=== PATIENT | male | born 1980 | race Caucasian/White ===

== ENCOUNTER → 2017-10-29 09:55 | Outpatient (CLI) | payer MEDICAID, SELFPAY ==
--- NOTE | 2017-10-29 09:58 | STEWCON_ITS ---
Reason For Study: Chest Pain Stress Results Protocol: Dobutamine Stress Echo Maximum Predicted HR: 184 bpm Target HR: 156 bpm% Maximum Pre dicted HR: 83 % DurationHeart Rate Stage (mm:ss) (bpm) BPCom ment Baseline 70 133/70 Definity 8 ML Diluted With NS Used DSE 10 MCG 3:20 79 122/67 DSE 20 MCG 3:00 99 114/64 DSE 30 MCG 3:15 11 4 104/77Atropine 0.5 MG IVP DSE 40 MCG 2:55 15 3 112/62Atropine 0.5 MG IVP Recovery 85 131/74 Stress Duration: 12:30 mm:ss Maximum Stress HR: 153 bpmME TS: 1 Baseline Echocardiogram Findings The estimated ejection fraction is 65 %. Stress Echo Wall motion Data Resting WMIntermediate WMStress WM Resting Wall Motion Wall Motion Stress No regional wall motion No regional wall motion abnormalities noted. abnormalities noted. EKG Data Normal intervals are noted. The patient was titrated from 10 mcg to a maximum of 40 mcg of dobutamine during the stress. The maximum heart rate attained was 162 beats per minute. This was 88% of maximum predicted heart rate. During dobutamine infusion, there were no ST or T wave changes noted to suggest ischemia. No clinical angina was noted. Interpretation Summary The estimated ejection fraction is 65 %. Normal adequate dobutamine echocardiogram. Negative for ischemia by EKG and echocardiographic criteria. No anginal symptoms noted. Rare PVC noted. Appropriate blood pressure response to dobutamine. Final LVEF is 75%. Test terminated due to the attainment of target heart rate. Decreased sensitivity due to poor echo windows requiring Definity agent. Ordering Physician: Luci Licnoa Referring Physician: Lit Ventura MD Performed By: Ayden Nunez RCS
== END ==
PROVIDERS: Family Provider Family Medicine; PCP Family Medicine; Visit Provider Family Medicine
DX: E78.5 Hyperlipidemia, unspecified (principal); R07.9 Chest pain, unspecified; Z82.49 Family history of ischemic heart disease and other diseases of the circulatory system
CPT/HCPCS: 93017; 93350; J7030; Q9957; A4216; C8928

== ENCOUNTER 2018-01-03 09:22 | Day surgery (SDC) | payer MEDICAID, SELFPAY ==
[2018-01-03 09:38] VITALS: BP 143/84; PULSE 85; TEMP 35.8; O2SAT 95; BMI 61.3
--- NOTE | 2018-01-03 11:15 | SUR.OPER ---
ISOVUE 200 -3ML USED -TB
--- NOTE | 2018-01-03 11:20 | RAD_ITS ---
CLINICAL HISTORY: Male, 38 years old. Lower back pain PROCEDURE: EPIDUROGRAM - Caudal block FLUOROSCOPY TIME (if supplied): (0:08) minutes. 2 Images. RADIATION DOSAGE (If Supplied By Facility): CTDIvol = ( ) mGy, DLP = ( ) mGycm TECHNIQUE: Successful lumbar epidural steroid injection under fluoroscopic guidance. RAD/Fluor Guidance for Spine Inj IMPRESSION: Successful lumbar epidural steroid injection under fluoroscopic guidance. Electronically Signed: Matt Townsend MD at 7:20 EDT Tel , Service support ,
[2018-01-03] MEDS: Bupivacaine 0.25% 30 ML Vial (11:30)
[2018-01-03] MEDS: MethylPREDNISolone Acetate 80 MG/ML Vial (11:31)
[2018-01-03 11:36] VITALS: BP 131/70; BP 143/84; PULSE 75; RESP 16; O2SAT 94
--- NOTE | 2018-01-03 11:39 | OP.PCM_ITS ---
Problem List (1) Degeneration of intervertebral disc of lumbosacral region Status: Chronic (2) Radiculopathy of lumbosacral region Status: Chronic Report of Operation Date of Procedure: 01/03/18 Pre-Operative Diagnosis: Lumbosacral radiculopathy, lumbosacral degenerative disc disease Post-Operative Diagnosis: Lumbosacral radiculopathy, lumbosacral degenerative disc disease Surgery/Procedure Performed:: Diagnostic/therapeutic caudal epidural steroid injection Description of Surgical Findings:: PROCEDURE: Diagnostic/therapeutic caudal epidural steroid injection PREOPERATIVE DIAGNOSIS: Lumbosacral radiculopathy, lumbosacral degenerative disc disease, lumbosacral spinal stenosis. POSTOPERATIVE DIAGNOSIS: Lumbosacral radiculopathy, lumbosacral degenerative disc disease, lumbosacral spinal stenosis. ANESTHESIA: MAC COMPLICATIONS: None BLOOD LOSS: Minimal PROCEDURE IN DETAIL: History and physical today was reviewed. Risks and benefits of the procedure were explained. The patient understood, agreed to our procedure, and informed consent was obtained. IV inserted per routine protocol. The patient was taken to the operating room, placed in a prone position with a pillow positioned underneath the abdomen. Under direct physician fluoroscopy on the lateral view the caudal space was identified the skin and subcutaneous tissue were anesthetized approximately 3 cc of 1% lidocaine using a 25-gauge regular needle under direct visualization with fluoroscopy on the lateral view using a 22- gauge 3-1/2 inch spinal needle the needle was advanced via the skin through the sacral hiatus tip of the needle passed through the sacrococcygeal ligament advanced approximately S4 area after negative aspiration for blood or CSF a total of 3 cc of contrast were injected to confirm correct placement of the needle as well as cephalad spread the spread was followed to approximately L5 area after confirmation AP as well as lateral view and repeated negative aspiration a total of 15 cc of preservative-free 0.125% Marcaine with 80 mg of Depo-Medrol were injected easily. The needles were then removed intact.The patient experienced no signs or symptoms intrathecal, intravascular injection. The patient experienced no paraesthesia. The procedure was completed without any apparent difficult, any complication. The patient appeared to tolerate well. ASSESSMENT AND PLAN: This is a 38-year-old male with lumbosacral radiculopathy, lumbosacral degenerative disc disease, lumbosacral spinal stenosis status post diagnostic/ therapeutic caudal epidural steroid injection. The patient will continue his current medications. The patient will follow in approximately 2 weeks for possible repeat of the procedure if indicated.
[2018-01-03 11:40] VITALS: BP 143/84; BP 145/83; PULSE 75; RESP 16; O2SAT 96
[2018-01-03 11:45] VITALS: BP 117/80; BP 143/84; PULSE 78; RESP 16; O2SAT 97
[2018-01-03 11:50] VITALS: BP 130/80; BP 143/84; PULSE 75; RESP 16; TEMP 36.1; O2SAT 98
[2018-01-03 12:29] VITALS: BP 143/84
== END 2018-01-03 12:30 | disposition home or self-care (01) ==
PROVIDERS: Family Provider Family Medicine; PCP Family Medicine; Visit Provider Anesthesiology Pain Medicine
PROC: 3E0S3BZ Introduction of Anesthetic Agent into Epidural Space, Percutaneous Approach (ICD-10-PCS; CPT 62282; principal; 2018-01-03 11:05)
DX: M51.17 Intervertebral disc disorders with radiculopathy, lumbosacral region (principal); M51.16 Intervertebral disc disorders with radiculopathy, lumbar region; M48.07 Spinal stenosis, lumbosacral region; I10 Essential (primary) hypertension; G25.81 Restless legs syndrome; F17.200 Nicotine dependence, unspecified, uncomplicated; Z79.899 Other long term (current) drug therapy
CPT/HCPCS: 62323; 64483; 77003; J7120; J3490

== ENCOUNTER 2018-01-30 17:34 | Emergency (ER) | payer MEDICAID, SELFPAY ==
[2018-01-30 17:34] VITALS: BP 158/99; PULSE 89; RESP 18; TEMP 36; O2SAT 95; BMI 61.0
--- NOTE | 2018-01-30 18:21 | ED.VISSUMM ---
- ER Visit Summary Date of Service: 01/30/18 Chief Complaint: Rash right forearm secondary tattoo and infection proximal medial thigh after squeezing a pimple/abscess. Patient states he squeezed abscesses before but this is different. History of Present Illness: The patient is a 38 M who reports no past medical history and no allergies he denies fever, chills night sweats. Denies any ocular, visual auditory symptoms. He denies any chest discomfort or shortness of breath. Denies nausea vomiting. He states the tattoo was a new blue ink that his body wanted to try out on him . He apparently diluted with water. Please read written note for complete detail Physical Examination: Blood pressure elevated 158/99. Vital signs otherwise unremarkable. BMI is 61.0. HEENT exam is unremarkable. Heart is regular without murmur, gallop or rub. S1 and S2 are normal. Lungs are clear to auscultation with good movement of air bilaterally. Patient has an erythematous area that is 4 x 5 cm maximal dorsal right forearm without lymphangitis, epitrochlear extra lymphadenopathy. There is no fluctuance. There is an abscess which she squeezed. There is surrounding cellulitis that is 2 cm in size proximal medial right thigh. There is no inguinal lymphadenopathy. He is alert oriented ?3. Test Results: None are indicated Emergency Department Course and Treatment: Patient received his first dose of cephalexin and Bactrim in the emergency department. He was instructed to follow-up with his doctor for blood pressure check. Treatment Plan: Prescription for cephalexin and Bactrim and follow-up in 2-3 days for wound check and blood pressure reassessment. Disposition: Discharged to home Impression: 1. Cellulitis proximal dorsal right forearm initial encounter secondary tattoo 2. Cellulitis with ruptured abscess proximal medial right thigh initial encounter 3. Hypertensive in a nonhypertensive patient This note was generated with [employer] dictation software. It may contain incorrect words, spelling, and punctuation that were not noted in review of the chart prior to signing ED Disposition - Plan for ED Patient: Disposition: Home or Assisted Living Chief Complaint: Abscess Instructions: ED Infec Skin Cellulitis, ED Hypertension Poss Prescriptions: Smz/Tmp Ds [Bactrim Ds] 1 tab PO BID #14 tab Cephalexin 500 mg PO 4X/DAY #28 cap Referrals: Luci Licona DO [Primary Care Provider] - 2 Days for wound check
--- NOTE | 2018-01-30 18:24 | ED.DCSUM_ITS ---
- ER Visit Summary Date of Service: 01/30/18 Chief Complaint: Rash right forearm secondary tattoo and infection proximal medial thigh after squeezing a pimple/abscess. Patient states he squeezed abscesses before but this is different. History of Present Illness: The patient is a 38 M who reports no past medical history and no allergies he denies fever, chills night sweats. Denies any ocular, visual auditory symptoms. He denies any chest discomfort or shortness of breath. Denies nausea vomiting. He states the tattoo was a new blue ink that his body wanted to try out on him . He apparently diluted with water. Please read written note for complete detail Physical Examination: Blood pressure elevated 158/99. Vital signs otherwise unremarkable. BMI is 61.0. HEENT exam is unremarkable. Heart is regular without murmur, gallop or rub. S1 and S2 are normal. Lungs are clear to auscultation with good movement of air bilaterally. Patient has an erythematous area that is 4 x 5 cm maximal dorsal right forearm without lymphangitis, epitrochlear extra lymphadenopathy. There is no fluctuance. There is an abscess which she squeezed. There is surrounding cellulitis that is 2 cm in size proximal medial right thigh. There is no inguinal lymphadenopathy. He is alert oriented ?3. Test Results: None are indicated Emergency Department Course and Treatment: Patient received his first dose of cephalexin and Bactrim in the emergency department. He was instructed to follow -up with his doctor for blood pressure check. Treatment Plan: Prescription for cephalexin and Bactrim and follow-up in 2-3 days for wound check and blood pressure reassessment. Disposition: Discharged to home Impression: 1. Cellulitis proximal dorsal right forearm initial encounter secondary tattoo 2. Cellulitis with ruptured abscess proximal medial right thigh initial encounter 3. Hypertensive in a nonhypertensive patient This note was generated with [employer] dictation software. It may contain incorrect words, spelling, and punctuation that were not noted in review of the chart prior to signing ED Disposition - Plan for ED Patient: Disposition: Home or Assisted Living Chief Complaint: Abscess Instructions: ED Infec Skin Cellulitis, ED Hypertension Poss Prescriptions: Smz/Tmp Ds [Bactrim Ds] 1 tab PO BID #14 tab Cephalexin 500 mg PO 4X/DAY #28 cap Referrals: Luci Licona DO [Primary Care Provider] - 2 Days for wound check
[2018-01-30] MEDS: Cephalexin 250 MG Capsule 500 MG PO (18:41)
[2018-01-30] MEDS: Smz/Tmp Ds Tablet 1 TABLET PO (18:41)
[2018-01-30 18:42] VITALS: BP 150/80; PULSE 85; RESP 17; O2SAT 99
== END 2018-01-30 18:43 | disposition home or self-care (01) ==
LOC: ED 18:43
PROVIDERS: Emergency Provider Emergency Medicine; Family Provider Family Medicine; PCP Family Medicine
DX: L03.113 Cellulitis of right upper limb (principal); L03.115 Cellulitis of right lower limb; L02.415 Cutaneous abscess of right lower limb; R03.0 Elevated blood-pressure reading, without diagnosis of hypertension; L81.8 Other specified disorders of pigmentation; Z79.899 Other long term (current) drug therapy
CPT/HCPCS: 99283

== ENCOUNTER 2018-02-21 13:12 | Day surgery (SDC) | payer MEDICAID, SELFPAY ==
[2018-02-21] VITALS (8 sets, daily range): BP systolic 136–161; BP diastolic 64–97; PULSE 74–85; RESP 18; TEMP 36.4–36.9; O2SAT 96–100; BMI 62.3
--- NOTE | 2018-02-21 14:12 | RAD_ITS ---
PROCEDURE: Caudal block. DATE OF EXAMINATION: February 21, 2018. INDICATION: Male, 38 years old. Low back pain. FLUOROSCOPY TIME (if supplied): (0:12) minutes/seconds Fluoroscopic services provided for caudal block. RAD/Fluor Guidance for Spine Inj IMPRESSION: Fluoroscopic services provided for caudal block. Electronically Signed: Chava Gil MD at 10:34 EDT Tel [phone], Service support ,
[2018-02-21] MEDS: Bupivacaine 0.25% 30 ML Vial (14:36)
[2018-02-21] MEDS: MethylPREDNISolone Acetate 80 MG/ML Vial (14:36)
--- NOTE | 2018-02-21 15:30 | OP.PCM_ITS ---
Problem List (1) Degeneration of intervertebral disc of lumbosacral region Status: Chronic (2) Radiculopathy of lumbosacral region Status: Chronic Report of Operation Date of Procedure: 02/21/18 Pre-Operative Diagnosis: Lumbosacral radiculopathy, lumbosacral degenerative disc disease, lumbosacral spinal stenosis Post-Operative Diagnosis: Lumbosacral radiculopathy, lumbosacral degenerative disc disease, lumbosacral spinal stenosis Surgery/Procedure Performed:: Caudal epidural steroid injection Description of Surgical Findings:: PROCEDURE: Caudal epidural steroid injection PREOPERATIVE DIAGNOSIS: Lumbosacral radiculopathy, lumbosacral degenerative disc disease, lumbosacral spinal stenosis POSTOPERATIVE DIAGNOSIS: Lumbosacral radiculopathy, lumbosacral degenerative disc disease, lumbosacral spinal stenosis ANESTHESIA: MAC COMPLICATIONS: None BLOOD LOSS: Minimal PROCEDURE IN DETAIL: History and physical today was reviewed. Risks and benefits of the procedure were explained. The patient understood, agreed to our procedure, and informed consent was obtained. IV inserted per routine protocol. The patient was taken to the operating room, placed in a prone position with a pillow positioned underneath the abdomen. The lower back and tailbone area was prepped and draped in a sterile fashion using iodine ?3 under fluoroscopy guidance on the lateral view the caudal space was identified the skin and subcutaneous tissue and size approximately 3 cc of 1 % lidocaine using a 25-gauge regular needle under direct visualization fluoroscopy using the lateral approach using a 22-gauge 3-1/2 inch spinal needle the needle was advanced via the skin through the sacral hiatus, tip of the needle passed through the sacrococcygeal ligament advanced approximately S4 area after negative aspiration for blood or CSF a total of 3 cc of contrast were injected to confirm correct placement of the needle as well as cephalad spread the spread was followed to approximately L5 area after confirmation AP as well as lateral view repeated negative aspiration a total of 15 cc of preservative-free 0.125% Marcaine with 80 mg of the portal was injected easily. The needles were then removed intact. The patient experienced no signs or symptoms intrathecal, intravascular injection. The patient experienced no paraesthesia. The procedure was completed without any apparent difficult, any complication. The patient appeared to tolerate well. ASSESSMENT AND PLAN: This is a 38-year-old male with lumbosacral radiculopathy, lumbosacral degenerative disc disease, lumbosacral spinal stenosis status post caudal epidural steroid injection. The patient will continue his current medications. The patient will follow in approximately 2 weeks for possible repeat of the procedure if indicated.
== END 2018-02-21 15:41 | disposition home or self-care (01) ==
LOC: SDC 13:12 → AC 13:14
PROVIDERS: Family Provider Family Medicine; PCP Family Medicine; Visit Provider Anesthesiology Pain Medicine
PROC: 3E0S3BZ Introduction of Anesthetic Agent into Epidural Space, Percutaneous Approach (ICD-10-PCS; CPT 62282; principal; 2018-02-21 14:25)
DX: M51.17 Intervertebral disc disorders with radiculopathy, lumbosacral region (principal); M48.07 Spinal stenosis, lumbosacral region; I10 Essential (primary) hypertension; G25.81 Restless legs syndrome; F17.200 Nicotine dependence, unspecified, uncomplicated; Z79.899 Other long term (current) drug therapy
CPT/HCPCS: 62323; 64483; 77003; J7120; J3490

== ENCOUNTER 2018-05-09 11:22 | Day surgery (SDC) | payer MEDICAID, SELFPAY ==
[2018-05-09 11:49] VITALS: PULSE 70; RESP 18; TEMP 36.6; O2SAT 95; BMI 59.8
[2018-05-09] MEDS: Bupivacaine 0.25% 30 ML Vial (12:33)
[2018-05-09] MEDS: MethylPREDNISolone Acetate 80 MG/ML Vial (12:33)
[2018-05-09 12:45] VITALS: BP 103/56; BP 117/92; PULSE 72; RESP 16; TEMP 36.8; O2SAT 92
[2018-05-09 12:50] VITALS: BP 103/56; BP 112/71; PULSE 74; RESP 18; O2SAT 93
[2018-05-09 12:55] VITALS: BP 103/56; BP 96/53; PULSE 71; RESP 18; O2SAT 93
[2018-05-09 13:00] VITALS: BP 103/56; BP 94/37; PULSE 68; RESP 18; TEMP 37.2; O2SAT 93
--- NOTE | 2018-05-09 13:00 | OP.PCM_ITS ---
Problem List (1) Degeneration of intervertebral disc of lumbosacral region Status: Chronic (2) Radiculopathy of lumbosacral region Status: Chronic Report of Operation Date of Procedure: 05/09/18 Pre-Operative Diagnosis: Lumbosacral radiculopathy, lumbosacral degenerative disc disease Post-Operative Diagnosis: Lumbosacral radiculopathy, lumbosacral degenerative disc disease Surgery/Procedure Performed:: Caudal epidural steroid injection Description of Surgical Findings:: PROCEDURE: Caudal epidural steroid injection PREOPERATIVE DIAGNOSIS: Lumbosacral radiculopathy, lumbosacral degenerative disc disease, lumbosacral spinal stenosis POSTOPERATIVE DIAGNOSIS: Lumbosacral radiculopathy, lumbosacral degenerative disc disease, lumbosacral spinal stenosis ANESTHESIA: MAC COMPLICATIONS: None BLOOD LOSS: Minimal PROCEDURE IN DETAIL: History and physical today was reviewed. Risks and benefits of the procedure were explained. The patient understood, agreed to our procedure, and informed consent was obtained. IV inserted per routine protocol. The patient was taken to the operating room, placed in a prone position with a pillow positioned underneath the abdomen. The lower back and buttock area was prepped and draped in a sterile fashion using iodine ?3 under fluoroscopy guidance a lateral view the caudal space was was identified skin and subcutaneous tissue anesthetized approximately 3 cc of 1 % lidocaine using a 25-gauge regular needle. Under direct visualization fluoroscopy in a lateral view using a 22-gauge 3-1/2 inch spinal needle needle was advanced via the skin through the sacral hiatus tip of the needle passed through the sacrococcygeal ligament advanced approximately S4 area after negative aspiration for blood or CSF a total of 3 cc of contrast were injected to confirm correct placement of the needle as well as cephalad spread the spread was followed to approximately L5 area after confirmation of AP as well as lateral view and repeated negative aspiration a total of 15 cc of preservative free 0.125% Marcaine with 80 mg of Depo-Medrol were injected easily , the needles were then removed intact. The patient experienced no signs or symptoms intrathecal, intravascular injection. The patient experienced no paraesthesia. The procedure was completed without any apparent difficult, any complication. The patient appeared to tolerate well. ASSESSMENT AND PLAN: This is a 38-year-old male with lumbosacral radiculopathy, lumbosacral degenerative disc disease, lumbosacral spinal stenosis status post caudal epidural steroid injection, the patient will continue her current medications. The patient will follow in approximately 2 weeks for possible repeat of the procedure if indicated.
[2018-05-09 13:13] VITALS: BP 103/56
== END 2018-05-09 13:45 | disposition home or self-care (01) ==
LOC: SDC 11:23 → AC 11:25
PROVIDERS: Family Provider Family Medicine; PCP Family Medicine; Visit Provider Anesthesiology Pain Medicine
PROC: 3E0S3BZ Introduction of Anesthetic Agent into Epidural Space, Percutaneous Approach (ICD-10-PCS; CPT 62282; principal; 2018-05-09 12:25)
DX: M47.27 Other spondylosis with radiculopathy, lumbosacral region (principal); M51.37 Other intervertebral disc degeneration, lumbosacral region; M51.36 Other intervertebral disc degeneration, lumbar region; M46.96 Unspecified inflammatory spondylopathy, lumbar region; I10 Essential (primary) hypertension; G25.81 Restless legs syndrome; F41.9 Anxiety disorder, unspecified; E66.01 Morbid (severe) obesity due to excess calories; Z68.44 Body mass index [BMI] 60.0-69.9, adult; Z79.891 Long term (current) use of opiate analgesic; Z79.899 Other long term (current) drug therapy; F17.220 Nicotine dependence, chewing tobacco, uncomplicated; F17.210 Nicotine dependence, cigarettes, uncomplicated
CPT/HCPCS: 01992; 62323; 64483; 77003; J7120; J3490

== ENCOUNTER 2018-11-16 01:14 | Inpatient (IN) | payer MEDICAID, SELFPAY ==
[2018-11-16] VITALS (10 sets, daily range): BP systolic 140–160; BP diastolic 65–97; PULSE 78–114; RESP 14–22; TEMP 36.6–37.1; O2SAT 90–100; BMI 66.9; BMI 67.0
[2018-11-16 03:44] LABS: Absolute Neutrophil Count 6.1 X10^3/uL (2.0-7.7); Basophil# 0.06 X10^3/uL; Basophil% 0.7 % (0-1); Eosinophil# 0.34 X10^3/uL; Hematocrit 44.9 % (40-54); Hemoglobin 14.3 g/dl (13.0-16.5); Lymphocyte % 17.5 % (19-41); Mean Corp Hgb Conc 31.8 g/gl (32-36); Mean Corpuscular Hgb 30.4 pg (27.0-32.0); Mean Corpuscular Volume 95.5 fL (80-94); Mean Platelet Vol. 9.4 fl (6.2-12.0); Neutrophil # 6.07 X10^3/uL (2.7-7.7); Neutrophil % 70.7 % (47-70); Platelet Count 218 K/mm3 (150-450); RBC Distribution Width CV 13.9 % (11.6-14.6); RBC Distribution Width SD 46.9 fl (35.1-43.9); White Blood Count 8.6 K/mm3 (4.4-11.0)
[2018-11-16 03:46] LABS: POSITIVE COUNT NO; POSITIVE DIFFERENTIAL NO; POSITIVE MORPHOLOGY NO
[2018-11-16 03:56] LABS: Anion Gap 7 (5-15); BUN 12 mg/dL (7-18); BUN/Creat Ratio 14.3 RATIO (10-20); Calcium,Total 8.7 mg/dL (8.5-10.1); Chloride 100 mmol/L (98-107); Creatinine, Serum 0.84 mg/dL (0.70-1.30); EST Glomerular Filtration Rate 109 mL/min (>60); Est Glom Filt Rate - Afr Amer 132 mL/min (>60); Estimated Creatinine Clearance 139.99 ml/min; Glucose 104 mg/dL (74-106); Potassium 4.4 mmol/L (3.5-5.1); Sodium Level 140 mmol/L (136-145)
--- NOTE | 2018-11-16 04:28 | PCM.HP.STD ---
Problem List (1) Cellulitis Status: Acute Qualifiers: Site of cellulitis: other site Qualified Code(s): L03.818 - Cellulitis of other sites (2) Morbid obesity Status: Chronic (3) Psoriasis Status: Chronic (4) Radiculopathy of lumbosacral region Status: Chronic (5) Tobacco dependence syndrome Status: Chronic (6) ANTONIO (obstructive sleep apnea) Status: Chronic History of Present Illness Date of Admission: 11/16/18 Chief Complaint: Abdominal wall cellulitis The patient is a 38 y/o M w/ PMHx: Morbid Obesity, ANTONIO non-compliant with CPAP, Chronic Pain Syndrome with chronic back pain and bilateral lower extremity radiculopathy, HTN, HLD, Anxiety and Depression, Tobacco use who presents to the [facility] ED on 11/16/18 with history of cellulitis abdominal wall progressively worsening x 1-2 weeks, noted to have been treated per PCP recently with unclear abx therapies with initially improvement and then recurrence primarily he notes to the right lateral lower abdomen with discomfort, induration and increased redness with no fevers or chills. In the ED work-up included T 98.6, heart rate 114, BP 157/88, respiratory rate 20, 96% on room air, CBC with WBC 8.6, hemoglobin 14.3, platelets 218 with minimal shift, BMP with carbon dioxide 33 otherwise not market appearing. In the ED patient administered Unasyn. Past Medical History Past Medical History (Chronic Problems): Chronic Problems Degeneration of intervertebral disc of lumbosacral region (Chronic) Radiculopathy of lumbosacral region (Chronic) Morbid obesity (Chronic) ANTONIO (obstructive sleep apnea) (Chronic) Tobacco dependence syndrome (Chronic) Psoriasis (Chronic) Alcohol abuse (Chronic) Allergies No Known Allergies Allergy (Verified 11/16/18 01:14) Home Medications: Ambulatory Orders Medication Instructions Recorded Cyclobenzaprine [Flexeril] 10 mg PO TID 08/07/16 Diclofenac [Voltaren] 50 mg PO TIDCM 08/07/16 Gabapentin [Neurontin] 600 mg PO TIDCM 08/07/16 Oxycodone [Oxyir] 15 mg PO 4X/DAY 08/07/16 Duloxetine Hcl [Cymbalta] 20 mg PO DAILY 12/29/17 Furosemide 80 mg PO DAILY 12/29/17 Hydrochlorothiazide 12.5 - 25 mg PO DAILY 12/29/17 Metoprolol Succinate [Toprol Xl] 25 mg PO BID 12/29/17 Surgical History: no surgical history Psychiatric History: Anxiety, Depression Lives: Alone Smoking Status: Current every day smoker - 1-1.5 ppd cigarette tobacco use Tobacco Use: Cigarettes Alcohol: Occasional - Denies heavy usage. Drugs: None - *Family History Maternal History Items: - - She denies any marked maternal history including heart disease, diabetes or cancer. Paternal History Items: Cancer Review of Systems Constitutional: Reports: Malaise, Weakness, Fatigue. Denies: Chills, Fever, Weight Change HEENT: Denies: Head Aches, Sinus Congestion, Sinus Drainage Cardiovascular: Denies: Chest Pain, Palpitations Respiratory: Reports: Shortness of breath upon exertion. Denies: Cough, Shortness of breath at rest, Sputum production Gastrointestinal: Reports: Abdominal Pain. Denies: Nausea, Vomiting Genitourinary: Denies: Dysuria Musculoskeletal: Reports: Back Pain, Joint Pain. Denies: Joint Tenderness Skin: Reports: Skin Changes. Denies: Rash, Wounds Neurological: Denies: Numbness, Tingling, Focal weakness Psychiatric: Reports: Anxiety, Depression. Denies: Homicidal Ideations, Suicidal Ideations Hematologic/ Lymphatic: Denies: Easy Bruising, Easy Bleeding VTE Information - Inpt Only VTE Present on Admission: No VTE Mechan Device Prophylaxis: SCD's VTE Pharm Prophylaxis ordered?: Yes Patient Problems: Active and Suspected Problems Cellulitis (Acute) Subjective: Laying in the ED bed, snoring initially, awakened easily. Objective: Physical Examination: General: awakens easily but falling asleep easily, intermittently alert, oriented x 3 once awakened and cooperative, seated upright in the ED bed in no apparent distress. Skin: normal color, turgor, no icterus, cyanosis, audible diffuse extremity abdomen and thorax psoriasis, mildly increased redness and mild induration to the right lateral abdomen distally with some discomfort with palpation. HEENT: AT/NC, EOMI, PERRLA, dry MM, no carotid bruits or JVD noted; however, thickened neck makes examination difficult. Lungs: Breath sounds, decreased bilateral bases, moderate effort, no rales, ronchi or wheezing. Heart: Regular rate and rhythm; no gallop, rub audible. Abdomen: soft, morbidly obese, mild discomfort with palpation as noted to right distal lateral abdominal wall, ND, normal BS, no HSM; however, habitus makes examination difficult. Extremities: no cyanosis, clubbing, lateral lower extremity pedal to mid pel[place] 3+ pitting edema which he notes is chronic. Neurological: awakens easily but falling asleep easily, intermittently alert, oriented x 3 once awakened and cooperative, seated upright in the ED bed in no apparent distress; cognitive function is baseline intact; pupils equally reactive to light and accomodation; cranial nerves II-XII grossly normal, moving all 4 extremities, no focal deficits, strength mildly globally decreased. Psychiatric: affect appears fatigued, sluggish, no acute evidence of depressive or anxiety feelings. - Physical Exam Vital Signs Temp Pulse Resp BP Pulse Ox 98.1 F 114 H 19 H 145/65 H 98 11/16/18 03:55 11/16/18 03:55 11/16/18 03:55 11/16/18 03:55 11/16/18 03:55 Oxygen Delivery Method Room Air Weight: 521 lb 13.346 oz Body Mass Index (BMI) 66.9 Laboratory Tests Past 24 Hrs 11/16/18 11/16/18 03:25 03:25 WBC 8.6 RBC 4.70 Hgb 14.3 Hct 44.9 MCV 95.5 H MCH 30.4 MCHC 31.8 L RDW 13.9 RDW Differential 46.9 H Plt Count 218 MPV 9.4 Immature Gran % (Auto) 0.100 Neut % (Auto) 70.7 H Lymph % (Auto) 17.5 L [place] % (Auto) 7.0 Eos % (Auto) 4.0 Baso % (Auto) 0.7 Absolute Neuts (auto) 6.1 Absolute Lymphs (auto) 1.50 Total Counted Not Reportable Sodium 140 Potassium 4.4 Chloride 100 Carbon Dioxide 33.0 H Anion Gap 7 BUN 12 Creatinine 0.84 Estim Creat Clear Calc 139.99 Est GFR (MDRD) Af Amer 132 Est GFR (MDRD) Non-Af 109 BUN/Creatinine Ratio 14.3 Glucose 104 Calcium 8.7 Assessment/Plan All Active Problems Cellulitis (Acute) The patient is a 38 y/o M w/ PMHx: Morbid Obesity, ANTONIO non-compliant with CPAP, Chronic Pain Syndrome with chronic back pain and bilateral lower extremity radiculopathy, HTN, HLD, Anxiety and Depression, Tobacco use who presents to the [facility] ED on 11/16/18 with history of cellulitis abdominal wall progressively worsening x 1-2 weeks, noted to have been treated per PCP recently with unclear abx therapies with initially improvement and then recurrence primarily he notes to the right lateral lower abdomen with discomfort, induration and increased redness with no fevers or chills. (1) Abdominal Wall Cellulitis, Failed Outpatient Treatment complicated by Psoriasis: Will admit to [facility], maintain on IV vanc, plan repeat CBC in AM, continue affected extremity elevation above heart when seated and in bed, monitor erythema outline with VS checks, HgbA1c requested although BS normal range. (2) Hypertension: Continue home regimen including Lasix, metoprolol, PRN hydralazine. (3) Morbid Obesity: Weight loss and lifestyle changes encouraged, nutrition consulted. (4) Chronic pain syndrome, chronic back pain with radiculopathy: Frequent position changes, fall precautions, continue home Flexeril, Voltaren, gabapentin, oxycodone regimen. (5) Anxiety and Depression: Continue home Cymbalta regimen. (6) Tobacco Abuse: Encouraged cessation, inpatient consultation per RT, NR if desired. (7) GERD: Famotidine. (8) ANTONIO: Non-compliant with CPAP. (9) DVT Prophylaxis: SCDs, lovenox. Code Visit Inpatient E&M: 29560 Init Hosp L3
--- NOTE | 2018-11-16 06:38 | ED.VISSUMM ---
- ER Visit Summary Date of Service: 11/16/18 Chief Complaint: Dental pain and cellulitis History of Present Illness: The patient is a 38 M who presents with cellulitis of his lower abdomen. He also complains of dental pain. He states he first noticed the redness on his abdomen about 1-2 weeks ago. He called his primary care physician. He was put on antibiotics but does not remember which ones. He states he transiently seemed to improve but then returned and is worsened. He also complains of 3-4 days of right-sided dental pain both upper and lower. No fevers. No vomiting. No diarrhea. No chest pain or shortness of breath. Physical Examination: Afebrile vitals normal Patient has widespread dental decay without focal dental abscess or dental tenderness on percussion Heart regular rate and rhythm Lungs clear Abdomen soft Patient does have erythema and warmth to the touch of the lower abdomen. He has a psoriatic rash over most of his abdomen and face Test Results: CBC BMP unremarkable. Emergency Department Course and Treatment: Patient was treated with IV Unasyn. Given the area of cellulitis in the failure of outpatient treatment I felt he should be admitted. Patient discussed with hospitalist and admitted. Treatment Plan: [] Disposition: Admit Impression: Cellulitis of the abdomen Odontalgia This note was generated with [employer] dictation software. It may contain incorrect words, spelling, and punctuation that were not noted in review of the chart prior to signing ED Disposition - Plan for ED Patient: Disposition: Acute [facility]
[2018-11-16 06:59] LABS: Magnesium 2.4 mg/dL (1.6-2.6)
[2018-11-16] MEDS: Gabapentin 600 MG Tablet PO ×3 (08:29→17:14)
--- NOTE | 2018-11-16 08:47 | PCM.RX.CS ---
Consult Pharmacy has been consulted to manage selected antiobiotic: Vancomycin Type of Consult: New start Suspected Infection: Skin/Soft tissue Labs: Sodium 140 mmol/L (136-145) 11/16/18 03:25 Potassium 4.4 mmol/L (3.5-5.1) 11/16/18 03:25 Chloride 100 mmol/L (98-107) 11/16/18 03:25 Carbon Dioxide 33.0 mmol/L (21.0-32.0) H 11/16/18 03:25 Anion Gap 7 (5-15) 11/16/18 03:25 BUN 12 mg/dL (7-18) 11/16/18 03:25 Creatinine 0.84 mg/dL (0.70-1.30) 11/16/18 03:25 Est GFR (MDRD) Af Amer 132 mL/min (>60) 11/16/18 03:25 Est GFR (MDRD) Non-Af 109 mL/min (>60) 11/16/18 03:25 BUN/Creatinine Ratio 14.3 RATIO (10-20) 11/16/18 03:25 Glucose 104 mg/dL (74-106) 11/16/18 03:25 Weight used for dosin.7 kg Estimated Creatinine Clearance: 140 ML/MIN Goal Trough: 10-15 mcg/mL Pharmacy Plan for Drug Dosing: Start with initial dose of 2000mg IV x1, then continue with 1750mg IV q12h. Obtain a trough before the 4th dose. Pharmacy Service will continue to monitor and adjust dosing as required. Follow-Up Labs: Trough Vancomycin Labs to be done on [date and time ordered]: 11/17/18 at 19:30
[2018-11-16 08:48] LABS: Hemoglobin A1c 6.1 % (4.2-6.3)
[2018-11-16] MEDS: 0.9% Normal Saline 1,000 ML 100 ML IV (09:35)
[2018-11-16] MEDS: Furosemide 80 MG Tablet PO (09:37)
[2018-11-16] MEDS: Famotidine 20 MG Tablet PO ×2 (09:37→22:12)
[2018-11-16] MEDS: Metoprolol Tartrate 25 MG Tablet PO ×2 (09:38→22:12)
[2018-11-16] MEDS: DULoxetine Hcl 20 MG Capsule PO (09:38)
[2018-11-16] MEDS: Enoxaparin 40 MG/0.4 ML Syringe SC ×2 (09:38→22:12)
--- NOTE | 2018-11-16 10:35 | CASEMGMT ---
RN LEONA Face to Face with patient for initial transition planning/care coordination assessment. RN CM introduced self and role at [facility]. Patient lying in bed, alert and oriented. Patient willing to participate in assessment and is able to answer all questions appropriately. Care providers, pharmacy, and demographics verified. Patient wishes to discharge home, denies need for home health at this time. Patient states he has no further needs or concerns at this time. CM to follow for discharge planning needs that may arise. PCP: Livan Specialists: None Preferred Pharmacy: [facility] Insurance: [employer] Prescription Benefit: Yes Living Will/HPOA: None LNOK: Mother Living Arrangements: Patient lives alone in mobile home with 9 steps to enter the home with railing. Patient states he is independent at home. Transportation: Self/mother DME/HHC: Patient states that he has a cane at home. Denies oxygen, cpap, bipap, or nebulizer at home. No previous HHC or SNF. Disposition Plan: Patient to discharge home with family support and follow-u plans in place. Karne DEGROOT, RN, CM
--- NOTE | 2018-11-16 12:06 | PCM.PN.BLA ---
Progress Note Patient is a 38-year-old gentleman with history of psoriasis with extensive rash on both trunk and extremities who presented with swelling, redness and warmth involving the lower wall. An assessment of abdominal wall cellulitis made admitted to regular nursing floor for subsequent management 1. Acute anterior abdominal wall cellulitis: Patient has been admitted to regular nursing floor: Broad antibiotic therapy initiated per protocol. The extent of patient cellulitis marked to monitor progress 2. Extensive psoriasis patient instructed to follow-up with the senior mainframe developer following discharge 3. Morbid obesity with BMI of 67. Weight loss advised. Patient instructed to follow-up with PCP for consideration for possible gastric bypass surgery 4. Chronic pain syndrome 5. Depression with anxiety patient is on Cymbalta 6. Obstructive sleep apnea patient has CPAP at night which he has apparently not remained compliant 7. Tobacco dependence counseled on cessation, offered nicotine patch for tobacco cravings 8. DVT prophylaxis on Lovenox dose adjusted for weight
[2018-11-16] MEDS: Cefazolin 1 GM/50 ML BAG IV ×2 (15:11→23:46)
[2018-11-16] MEDS: oxyCODONE 5 MG Tablet 15 MG PO (20:19)
[2018-11-17] VITALS (7 sets, daily range): BP systolic 133–151; BP diastolic 80–94; PULSE 70–85; RESP 16–18; TEMP 36.4–36.6; O2SAT 93–100
[2018-11-17] MEDS: 0.9% Normal Saline 1,000 ML 100 ML IV ×2 (02:05→17:10)
[2018-11-17] MEDS: oxyCODONE 5 MG Tablet 15 MG PO ×3 (05:27→22:34)
[2018-11-17] MEDS: Cefazolin 1 GM/50 ML BAG IV (05:27)
[2018-11-17 06:57] LABS: Absolute Neutrophil Count 6.4 X10^3/uL (2.0-7.7); Basophil# 0.03 X10^3/uL; Basophil% 0.3 % (0-1); Eosinophil# 0.43 X10^3/uL; Eosinophils% 4.6 % (0-5); Hemoglobin 13.5 g/dl (13.0-16.5); Lymphocyte % 17.3 % (19-41); Mean Corp Hgb Conc 32.1 g/gl (32-36); Mean Corpuscular Hgb 30.3 pg (27.0-32.0); Mean Corpuscular Volume 94.2 fL (80-94); Mean Platelet Vol. 9.5 fl (6.2-12.0); Monocyte# 0.82 X10^3/uL; Monocyte% 8.9 % (0-10); Neutrophil # 6.35 X10^3/uL (2.7-7.7); Neutrophil % 68.7 % (47-70); Platelet Count 206 K/mm3 (150-450); RBC Distribution Width SD 47.7 fl (35.1-43.9); Red Blood Count 4.46 M/mm3 (4.6-6.2); White Blood Count 9.3 K/mm3 (4.4-11.0)
[2018-11-17 07:07] LABS: POSITIVE COUNT NO; POSITIVE DIFFERENTIAL NO; POSITIVE MORPHOLOGY NO
[2018-11-17 07:15] LABS: Anion Gap 7 (5-15); BUN 13 mg/dL (7-18); Calcium,Total 8.2 mg/dL (8.5-10.1); Chloride 101 mmol/L (98-107); Creatinine, Serum 0.87 mg/dL (0.70-1.30); EST Glomerular Filtration Rate 105 mL/min (>60); Est Glom Filt Rate - Afr Amer 127 mL/min (>60); Estimated Creatinine Clearance 135.16 ml/min; Glucose 113 mg/dL (74-106); Potassium 3.6 mmol/L (3.5-5.1); Sodium Level 139 mmol/L (136-145)
[2018-11-17] MEDS: Famotidine 20 MG Tablet PO ×2 (08:22→22:34)
[2018-11-17] MEDS: Furosemide 80 MG Tablet PO (08:22)
[2018-11-17] MEDS: Gabapentin 600 MG Tablet PO ×3 (08:22→17:09)
[2018-11-17] MEDS: Metoprolol Tartrate 25 MG Tablet PO ×2 (08:23→22:34)
[2018-11-17] MEDS: Enoxaparin 40 MG/0.4 ML Syringe SC ×2 (08:24→22:34)
[2018-11-17] MEDS: DULoxetine Hcl 20 MG Capsule PO (08:24)
--- NOTE | 2018-11-17 09:32 | PN_ITS ---
Patient Problems: Active and Suspected Problems Cellulitis (Acute) Subjective: Patient is a 38-year-old gentleman with history of psoriasis with extensive rash on both trunk and extremities who presented with swelling, redness and warmth involving the lower wall. An assessment of abdominal wall cellulitis made admitted to regular nursing floor for subsequent management Objective: GENERAL: cooperative HEENT: Atraumatic; moist oral mucosa EYES; Anicteric, Normal Conjunctiva NECK; supple, normal thyroid, no distended JVD. RESPIRATORY: Diminished to auscultation bilaterally, CARDIOVASCULAR: Regular S1 S2, no audible murmurs GI: soft, non-tender, normoactive bowel sounds, : No Renal angle tenderness; EXTREMITIES: No edema, no clubbing, no cyanosis. MUSCULOSKELETAL: No Joint Tenderness; no muscle waisting NEURO: Awake; no lateralizing signs. SKIN: Extensive psoriatic patches on trunk and extremities PSYCH; Normal affect Vitals/I&O's: Vital Signs Temp Pulse Resp BP Pulse Ox 97.7 F L 78 16 138/82 H 97 11/17/18 08:00 11/17/18 08:23 11/17/18 08:00 11/17/18 08:23 11/17/18 08:00 Oxygen Delivery Method Room Air Weight: 236.7 kg Body Mass Index (BMI) 66.9 Intake and Output for Last 24 Hours 11/15/18 11/16/18 11/17/18 23:59 23:59 23:59 Intake Total 2600 / 2600 Balance 2600 / 2600 Laboratory Results 11/17/18 06:14: WBC 9.3, RBC 4.46 L, Hgb 13.5, Hct 42.0, MCV 94.2 H, MCH 30.3, MCHC 32.1, RDW 14.0, RDW Differential 47.7 H, Plt Count 206, MPV 9.5, Immature Gran % (Auto) 0.200, Neut % (Auto) 68.7, Lymph % (Auto) 17.3 L, [place] % (Auto) 8.9, Eos % (Auto) 4.6, Baso % (Auto) 0.3, Absolute Neuts (auto) 6.4, Absolute Lymphs (auto) 1.60, Total Counted Not Reportable 11/17/18 06:14: Sodium 139, Potassium 3.6, Chloride 101, Carbon Dioxide 31.0, Anion Gap 7, BUN 13, Creatinine 0.87, Estim Creat Clear Calc 135.16, Est GFR (MDRD) Af Amer 127, Est GFR (MDRD) Non-Af 105, BUN/Creatinine Ratio 15.0, Glucose 113 H, Calcium 8.2 L Current Medications Acetaminophen (Tylenol) 650 mg PO Q6H PRN PRN PRN Reason: Mild Pain (scale 0-3)/T>100.7 Al Hydroxide/Mg Hydroxide (Mylanta Ii) 30 ml PO Q6H PRN PRN PRN Reason: Gastric burning Cyclobenzaprine HCl (Flexeril) 10 mg PO TID [facility] Last Admin: 11/17/18 05:28 Dose: 10 mg Dextrose (D50w Syringe) 0 gm IV X1 PRN; Protocol PRN Reason: Hypoglycemia Diclofenac Sodium (Voltaren) 50 mg PO TIDCM [facility] Last Admin: 11/17/18 08:22 Dose: 50 mg Docusate Sodium (Colace) 200 mg PO BID PRN PRN PRN Reason: Constipation Duloxetine HCl (Cymbalta) 20 mg PO DAILY [facility] Last Admin: 11/17/18 08:24 Dose: 20 mg Enoxaparin Sodium (Lovenox) 40 mg SC BID [facility] Last Admin: 11/17/18 08:24 Dose: 40 mg Famotidine (Pepcid) 20 mg PO BID [facility] Last Admin: 11/17/18 08:22 Dose: 20 mg Furosemide (Lasix) 80 mg PO DAILY [facility] Last Admin: 11/17/18 08:22 Dose: 80 mg Gabapentin (Neurontin) 600 mg PO TIDCM [facility] Last Admin: 11/17/18 08:22 Dose: 600 mg Glucagon () 1 mg IM .X1 PRN PRN Reason: Hypoglycemia Sodium Chloride () 1,000 mls @ 100 mls/hr IV .Q10H [facility] Last Admin: 11/17/18 02:05 Dose: 100 mls/hr Vancomycin IV Pharmacy to Dose (1 ea/ Sodium Chloride) 500 mls @ 250 mls/hr IV X1 PRN; Protocol PRN Reason: Rx to Dose Vancomycin HCl 1,750 mg/ (Sodium Chloride) 535 mls @ 250 mls/hr IV Q12H [facility] Last Admin: 11/17/18 08:25 Dose: 250 mls/hr Cefazolin Sodium () 1 gm in 50 mls @ 100 mls/hr IV Q8 [facility] Last Admin: 11/17/18 05:27 Dose: 100 mls/hr Magnesium Hydroxide (Milk Of Magnesia) 30 ml PO DAILY PRN PRN PRN Reason: Constipation Metoprolol Tartrate (Lopressor (Beta Ksenia)) 25 mg PO BID [facility] Last Admin: 11/17/18 08:23 Dose: 25 mg Morphine Sulfate () 2 - 4 mg IV Q3H PRN PRN PRN Reason: Severe Pain (pain scale 6-10) Nutritional Formula (Lactose Free) (Ensure Enlive) 120 ml PO 4X/DAY [facility] Ondansetron HCl (Zofran) 4 mg IV Q8H PRN PRN PRN Reason: NAUSEA Oxycodone HCl (Oxyir) 15 mg PO 4X/DAY PRN PRN PRN Reason: PAIN Last Admin: 11/17/18 05:27 Dose: 15 mg Sodium Chloride () 5 - 15 ml IV UD PRN PRN Reason: SALINE FLUSH Medical Necessity - Tobacco Use Smoking Status: Current every day smoker Tobacco Use: Cigarettes Assessment/Plan All Active Problems Cellulitis (Acute) Patient is a 38-year-old gentleman with history of psoriasis with extensive rash on both trunk and extremities who presented with swelling, redness and warmth involving the lower wall. An assessment of abdominal wall cellulitis made admitted to regular nursing floor for subsequent management 1. Acute anterior abdominal wall cellulitis: Patient has been admitted to regular nursing floor: Broad antibiotic therapy initiated per protocol. The extent of patient cellulitis marked to monitor progress 2. Extensive psoriasis patient instructed to follow-up with the director of institutional giving following discharge 3. Morbid obesity with BMI of 67. Weight loss advised. Patient instructed to follow-up with PCP for consideration for possible gastric bypass surgery 4. Chronic pain syndrome 5. Depression with anxiety patient is on Cymbalta 6. Obstructive sleep apnea patient has CPAP at night which he has apparently not remained compliant 7. Tobacco dependence counseled on cessation, offered nicotine patch for tobacco cravings 8. DVT prophylaxis on Lovenox dose adjusted for weight Code Visit Inpatient E&M: 64380 [facility] Hosp
[2018-11-17] MEDS: Cefazolin 2 GM in 0.9% Normal Saline 100 ML IV ×2 (14:15→22:34)
[2018-11-17 20:23] LABS: Vancomycin, Trough Level 15.5 ug/mL (5.0-15.0)
[2018-11-17] MEDS: 0.9% NaCl Peripheral Flush Adult/Peds IV (22:38)
[2018-11-18 00:34] VITALS: BP 152/86; PULSE 72; RESP 18; TEMP 36.6; O2SAT 95
[2018-11-18] MEDS: Cefazolin 2 GM in 0.9% Normal Saline 100 ML IV (05:08)
[2018-11-18] MEDS: 0.9% Normal Saline 1,000 ML 100 ML IV (05:08)
[2018-11-18 05:11] VITALS: BP 154/92; PULSE 83; RESP 18; TEMP 37; O2SAT 95
[2018-11-18 08:09] LABS: Vancomycin, Trough Level 9.6 ug/mL (5.0-15.0)
[2018-11-18] MEDS: Gabapentin 600 MG Tablet PO ×2 (08:12→11:39)
--- NOTE | 2018-11-18 09:40 | CASEMGMT ---
Social Work Note SW received consult from RN for Mental Health. Consult states that pt is stressed and depressed and has history of cutting. SW met with pt. SW introduced self and role at [facility]. Pt is alert and orientated x3. SW asked pt about home going needs and pt states he needs more money. Pt states he was denied by social security again. SW offered support to pt and encouraged pt to follow up with social security at discharge. Pt states frustration with social security and that everyone else gets social security except for him. Pt states examples of people he knows that have applied for social security and got it except for him. SW offered support to pt and validated pt's frustration. Pt states that he has family and friends to assist but they can't help him for forever. Pt states his mom has helped him as well. Pt states history of Depression. Per H+P pt has history of anxiety and depression. Pt states that he has a history of cutting and that he last cut himself a month ago. Pt states that he cuts himself only on the surface and states that it takes his mind off of one pain and to another. Pt denied cutting as any suicidal thoughts/plans/ideations. Pt denied any history and current suicidal/homicidal thoughts/plans/ideations. Pt states that he has been in counseling for half of his life but denied currently seeing a counselor. Pt states that he got tired of hearing it. Pt states that his 8 dogs at home help with his depression. Pt states that he is currently linked with [employer] and receiving food stamps. Pt agreeable to this worker provided financial resources but denied wanting counseling resources. LUCY provided pt with financial resources including [employer], [employer], [employer], [facility] assistance programs, [facility] [employer], [place] [address] and [facility] [employer]. Pt thanked this worker and denied additional needs or concerns. Karen Torres ORTHOPEDIC TECHNICIAN, [employer]AN[employer] KNITTING MACHINE OPERATOR
--- NOTE | 2018-11-18 09:41 | DCINST_ITS ---
- Discharge Diagnoses Current Active Problems: Current Active and Chronic Problems Cellulitis (Acute) Morbid obesity (Chronic) ANTONIO (obstructive sleep apnea) (Chronic) You will use the following diet at home:: Cardiac Discharge Activity: May not drive while taking narcotic pain medications. Allergies/Adverse Reactions: Allergies No Known Allergies Allergy (Verified 11/16/18 01:14) Medications to take at Discharge Cyclobenzaprine [Flexeril] 10 mg PO TID 08/07/16 Diclofenac [Voltaren] 50 mg PO TIDCM 08/07/16 Gabapentin [Neurontin] 600 mg PO TIDCM 08/07/16 Oxycodone [Oxyir] 15 mg PO 4X/DAY PRN PRN 08/07/16 Duloxetine Hcl [Cymbalta] 20 mg PO DAILY 12/29/17 Furosemide 80 mg PO DAILY 12/29/17 Hydrochlorothiazide 12.5 - 25 mg PO DAILY 12/29/17 Metoprolol Succinate [Toprol Xl] 25 mg PO BID 12/29/17 Cephalexin [Keflex] 500 mg PO Q12 #14 capsule 11/18/18 The following prescriptions were given: Cephalexin [Keflex] 500 mg PO Q12 #14 capsule Primary Care Physician: Luci Licona DO [Primary Care Provider] - Please follow up with your Primary Care Physician in: 5-7 days Test Results: Test results from this visit will be discussed in further detail at your follow- up appointment, if applicable. Proposed Discharge Date: 11/18/18
--- NOTE | 2018-11-18 09:41 | PCM.DC.SUM ---
Discharge Date and Diagnosis - Problem List Patient Problems: Active and Suspected Problems Cellulitis (Acute) Date of Admission: 11/16/18 Date of Discharge: 11/18/18 - Primary Discharge Diagnosis Active and Suspected Problems Cellulitis (Acute) - Secondary Discharge Diagnosis Chronic Problems Degeneration of intervertebral disc of lumbosacral region (Chronic) Radiculopathy of lumbosacral region (Chronic) Morbid obesity (Chronic) ANTONIO (obstructive sleep apnea) (Chronic) Tobacco dependence syndrome (Chronic) Psoriasis (Chronic) Alcohol abuse (Chronic) Hospital Course and Treatment Summary of Care Provided: Patient is a 38-year-old gentleman with history of psoriasis with extensive rash on both trunk and extremities who presented with swelling, redness and warmth involving the lower wall. An assessment of abdominal wall cellulitis made admitted to regular nursing floor for subsequent management 1. Acute anterior abdominal wall cellulitis: Patient has been admitted to regular nursing floor: Broad antibiotic therapy initiated per protocol. The extent of patient cellulitis marked to monitor progress patient was discharged home on Keflex after 2 days of hospitalization. Patient was instructed to follow-up with PCP to be referred to canvas products sales representative to manage his extensive psoriasis 2. Extensive psoriasis patient instructed to follow-up with the canvas products sales representative following discharge 3. Morbid obesity with BMI of 67. Weight loss advised. Patient instructed to follow-up with PCP for consideration for possible gastric bypass surgery 4. Chronic pain syndrome 5. Depression with anxiety patient is on Cymbalta 6. Obstructive sleep apnea patient has CPAP at night which he has apparently not remained compliant 7. Tobacco dependence counseled on cessation, offered nicotine patch for tobacco cravings 8. DVT prophylaxis on Lovenox dose adjusted for weight Patient Problems: Active and Suspected Problems Cellulitis (Acute) Objective: GENERAL: cooperative HEENT: Atraumatic; moist oral mucosa EYES; Anicteric, Normal Conjunctiva NECK; supple, normal thyroid, no distended JVD. RESPIRATORY: Diminished to auscultation bilaterally, CARDIOVASCULAR: Regular S1 S2, no audible murmurs GI: soft, non-tender, normoactive bowel sounds, : No Renal angle tenderness; EXTREMITIES: No edema, no clubbing, no cyanosis. MUSCULOSKELETAL: No Joint Tenderness; no muscle waisting NEURO: Awake; no lateralizing signs. SKIN: Extensive psoriatic patches on trunk and extremities PSYCH; Normal affect - Physical Exam Vital Signs Temp Pulse Resp BP Pulse Ox 98.6 F 83 18 154/92 H 95 02/15/19 05:11 11/18/18 05:11 11/18/18 05:11 11/18/18 05:11 11/18/18 05:11 Oxygen Delivery Method Room Air Weight: 236.7 kg Body Mass Index (BMI) 66.9 Intake and Output for Last 24 Hours 11/16/18 11/17/18 11/18/18 23:59 23:59 23:59 Intake Total 6270 / 6270 6226 / 6226 Balance 6270 / 6270 6226 / 6226 Laboratory Tests Past 24 Hrs 11/17/18 11/18/18 19:43 07:20 Vancomycin Trough 15.5 H 9.6 Discharge Diet: Low fat/ Low Cholesterol Discharge Activity: May not drive while taking narcotic pain medications. Home Medications: Medications to take at Discharge Cyclobenzaprine [Flexeril] 10 mg PO TID 08/07/16 Diclofenac [Voltaren] 50 mg PO TIDCM 08/07/16 Gabapentin [Neurontin] 600 mg PO TIDCM 08/07/16 Oxycodone [Oxyir] 15 mg PO 4X/DAY PRN PRN 08/07/16 Duloxetine Hcl [Cymbalta] 20 mg PO DAILY 12/29/17 Furosemide 80 mg PO DAILY 12/29/17 Hydrochlorothiazide 12.5 - 25 mg PO DAILY 12/29/17 Metoprolol Succinate [Toprol Xl] 25 mg PO BID 12/29/17 Cephalexin [Keflex] 500 mg PO Q12 #14 capsule 11/18/18 Following Prescrptions Were Given to Patient: Cephalexin [Keflex] 500 mg PO Q12 #14 capsule Primary Care Physician: Luci Licona DO [Primary Care Provider] - Please follow up with your Primary Care Physician in: 5-7 days Disposition: Home Minutes spent on discharge:: 40 Medical Necessity - Tobacco Use Smoking Status: Current every day smoker Tobacco Use: Cigarettes Meaningful Use Info Meaningful Use Diagnoses (Choose all that apply): None applicable Code Visit Inpatient E&M: 33271 [facility]
[2018-11-18 10:13] VITALS: PULSE 80
[2018-11-18] MEDS: DULoxetine Hcl 20 MG Capsule PO (10:13)
[2018-11-18] MEDS: Metoprolol Tartrate 25 MG Tablet PO (10:13)
[2018-11-18] MEDS: Enoxaparin 40 MG/0.4 ML Syringe SC (10:14)
[2018-11-18] MEDS: Furosemide 80 MG Tablet PO (10:14)
[2018-11-18] MEDS: Famotidine 20 MG Tablet PO (10:14)
[2018-11-18 12:26] VITALS: BP 134/78; PULSE 74; RESP 18; TEMP 37; O2SAT 95
== END 2018-11-18 12:30 | disposition home or self-care (01) | DRG 383 ==
LOC: ED 03:06 → MS3 05:09
PROVIDERS: Admitting Provider Family Medicine; Emergency Provider Emergency Medicine; Family Provider Family Medicine; PCP Family Medicine; Visit Provider Internal Medicine
DX: L03.311 Cellulitis of abdominal wall (principal); E66.01 Morbid (severe) obesity due to excess calories; Z68.44 Body mass index [BMI] 60.0-69.9, adult; I10 Essential (primary) hypertension; G89.4 Chronic pain syndrome; G47.33 Obstructive sleep apnea (adult) (pediatric); L40.9 Psoriasis, unspecified; F41.8 Other specified anxiety disorders; F17.210 Nicotine dependence, cigarettes, uncomplicated; M51.17 Intervertebral disc disorders with radiculopathy, lumbosacral region; Z79.899 Other long term (current) drug therapy; K02.9 Dental caries, unspecified
CPT/HCPCS: 36415; 80048; 80202; 83036; 83735; 85025; 97802; 99283; 99406; J7030; J7040; A4216; J0295

== ENCOUNTER 2018-11-19 20:15 | Observation (INO) | payer MEDICAID, SELFPAY ==
[2018-11-16 06:35] VITALS: BMI 66.9
[2018-11-19 20:17] VITALS: BP 163/119; PULSE 110; PULSE 113; RESP 22; TEMP 37.8; O2SAT 91; O2SAT 93; BMI 67.4
[2018-11-19 20:24] VITALS: O2SAT 92
--- NOTE | 2018-11-19 20:52 | RAD_ITS ---
STUDY: X-RAY CHEST REASON FOR EXAM: Male, 38 years old. Cough TECHNIQUE: AP COMPARISON: 10/24/2016 FINDINGS: The lungs are clear and expanded. There is no demonstrated pleural abnormality. Normal size heart. Normal mediastinum and radha. Normal visualized pulmonary arteries. Normal visualized aortic arch and descending thoracic aorta. Normal visualized thoracic spine. Normal visualized ribs, clavicles, and shoulders. There is no demonstrated abnormality of the visualized soft tissue structures of the upper abdomen. RAD/Chest 1 View (Portable) IMPRESSION: No airspace consolidation or pleural effusion. Electronically Signed: Angel De La Garza MD at 21:14 EST , Service support ,
[2018-11-19] MEDS: Acetaminophen 500 MG Tablet 1000 MG PO (21:32)
[2018-11-19 21:40] LABS: Absolute Lymphocyte Count 0.52 X10^3/ul (0.83-4.51); Absolute Neutrophil Count 4.8 X10^3/uL (2.0-7.7); Basophil# 0.01 X10^3/uL; Basophil% 0.2 % (0-1); Eosinophil# 0.01 X10^3/uL; Eosinophils% 0.2 % (0-5); Hematocrit 41.4 % (40-54); Hemoglobin 13.3 g/dl (13.0-16.5); Lymphocyte # 0.52 X10^3/ul (4.0); Lymphocyte % 8.4 % (19-41); Mean Corp Hgb Conc 32.1 g/gl (32-36); Mean Corpuscular Volume 93.5 fL (80-94); Mean Platelet Vol. 9.9 fl (6.2-12.0); Monocyte# 0.91 X10^3/uL; Monocyte% 14.6 % (0-10); Neutrophil # 4.76 X10^3/uL (2.7-7.7); Neutrophil % 76.4 % (47-70); POSITIVE DIFFERENTIAL YES; Platelet Count 177 K/mm3 (150-450); RBC Distribution Width SD 47.5 fl (35.1-43.9); Red Blood Count 4.43 M/mm3 (4.6-6.2); White Blood Count 6.2 K/mm3 (4.4-11.0)
[2018-11-19 21:41] LABS: Differential Indicated SCAN CRITERIA MET; POSITIVE COUNT NO; POSITIVE MORPHOLOGY NO
[2018-11-19 21:58] LABS: Platelet Estimate ADEQUATE (ADEQ)
--- NOTE | 2018-11-19 21:58 | ED.RN ---
LAB CALLED TO REPORT FLU A POSITIVE, DR. NASH MADE AWARE.
[2018-11-19 21:59] LABS: Anisocytosis RARE; Macrocytosis RARE
[2018-11-19 22:01] LABS: Anion Gap 8 (5-15); BUN 10 mg/dL (7-18); BUN/Creat Ratio 10.9 RATIO (10-20); Calcium,Total 8.3 mg/dL (8.5-10.1); Chloride 96 mmol/L (98-107); Creatinine, Serum 0.92 mg/dL (0.70-1.30); EST Glomerular Filtration Rate 99 mL/min (>60); Est Glom Filt Rate - Afr Amer 119 mL/min (>60); Estimated Creatinine Clearance 127.82 ml/min; Glucose 89 mg/dL (74-106); Potassium 3.7 mmol/L (3.5-5.1); Sodium Level 134 mmol/L (136-145)
[2018-11-19] MEDS: Oseltamivir Phosphate 75 MG Capsule PO (22:08)
[2018-11-19 22:09] VITALS: BP 141/99; PULSE 104; RESP 22; O2SAT 95
[2018-11-19] MEDS: 0.9% Normal Saline 1,000 ML 150 ML IV (22:09)
[2018-11-19 23:34] VITALS: BP 134/69; PULSE 99; RESP 20; TEMP 37.9; O2SAT 92
[2018-11-20] VITALS (16 sets, daily range): BP systolic 112–177; BP diastolic 58–98; PULSE 70–100; RESP 18–28; TEMP 36.6–38.4; O2SAT 91–99; BMI 67.3; BMI 67.4
--- NOTE | 2018-11-20 00:14 | HP.PCM_ITS ---
Problem List (1) Influenza A Status: Acute (2) Cellulitis Status: Resolved Qualifiers: Site of cellulitis: other site Qualified Code(s): L03.818 - Cellulitis of other sites (3) Degeneration of intervertebral disc of lumbosacral region Status: Chronic (4) Morbid obesity Status: Chronic (5) ANTONIO (obstructive sleep apnea) Status: Chronic (6) Tobacco dependence syndrome Status: Chronic (7) Psoriasis Status: Chronic History of Present Illness Date of Admission: 11/20/18 Chief Complaint: Fever, Chills, Diarrhea, Arthralgia, Myalgia, Mild Dyspnea The patient is a 38 y/o M w/ PMHx: Morbid Obesity, ANTONIO non-compliant with CPAP, Chronic Pain Syndrome with chronic back pain and bilateral lower extremity radiculopathy, HTN, HLD, Anxiety and Depression, Tobacco use who was recently discharged from [facility] on 11/18/18 following treatment for abdominal wall cellulitis, discharged on keflex regimen who now re-presents to the [facility] ED on 11/20/18 with history of notable severe diarrhea with 6-8 bouts at least through the day with associated abdominal cramping in addition to onset fevers, chills, arthralgias, myalgias and mild dyspnea over the last 24 hours prompting return to the ED. Additionally patient does note that he does not have running water at his facility as the pipes broke and this is been a great impediments given his GI symptoms. He states that he has felt so weak and fatigued with his symptoms that he sat in stool in his chair for nearly 4 hours. Current ED workup included T 100.1, heart rate 113, BP 163/119, respiratory rate 22, 91% on room air, CBC with WBC 6.2, heme globin 13.3, platelet 177 with mild shift, TMP with sodium 134, chloride 96, but influenza with positive influenza A, blood culture x2 pending per ED. 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 x1, Tylenol. Past Medical History Past Medical History (Chronic Problems): Chronic Problems Degeneration of intervertebral disc of lumbosacral region (Chronic) Radiculopathy of lumbosacral region (Chronic) Morbid obesity (Chronic) ANTONIO (obstructive sleep apnea) (Chronic) Tobacco dependence syndrome (Chronic) Psoriasis (Chronic) Alcohol abuse (Chronic) Allergies No Known Allergies Allergy (Verified 11/19/18 20:16) Home Medications: Ambulatory Orders Medication Instructions Recorded Cyclobenzaprine [Flexeril] 10 mg PO TID 08/07/16 Diclofenac [Voltaren] 50 mg PO TIDCM 08/07/16 Gabapentin [Neurontin] 600 mg PO TIDCM 08/07/16 Oxycodone [Oxyir] 15 mg PO 4X/DAY PRN PRN 08/07/16 Duloxetine Hcl [Cymbalta] 20 mg PO DAILY 12/29/17 Furosemide 80 mg PO DAILY 12/29/17 Hydrochlorothiazide 12.5 - 25 mg PO DAILY 12/29/17 Metoprolol Succinate [Toprol Xl] 25 mg PO BID 12/29/17 Cephalexin [Keflex] 500 mg PO Q12 #14 capsule 11/18/18 Surgical History: no surgical history Psychiatric History: Anxiety, Depression Lives: Alone Smoking Status: Current every day smoker - 1-1.5 ppd cigarette tobacco use. Tobacco Use: Cigarettes Alcohol: Occasional - Denies heavy as noted alcohol abuse and history from prior. Drugs: None - *Family History Maternal History Items: Diabetes Paternal History Items: Diabetes Review of Systems Constitutional: Reports: Anorexia, Chills, Fever, Malaise, Weakness, Fatigue. Denies: Weight Change HEENT: Denies: Head Aches, Sinus Congestion, Sinus Drainage Cardiovascular: Denies: Chest Pain, Palpitations Respiratory: Reports: Shortness of Breath, Shortness of breath at rest, Shortness of breath upon exertion. Denies: Cough, Sputum production, Wheezing Gastrointestinal: Reports: Abdominal Pain, Diarrhea. Denies: Nausea, Vomiting Genitourinary: Denies: Dysuria Musculoskeletal: Reports: Joint Pain, Muscle pain. Denies: Joint Tenderness Skin: Reports: Skin Changes. Denies: Rash, Wounds Neurological: Denies: Numbness, Tingling, Focal weakness Psychiatric: Denies: Anxiety, Depression, Homicidal Ideations, Suicidal Ideations Hematologic/ Lymphatic: Denies: Easy Bruising, Easy Bleeding VTE Information - Inpt Only VTE Present on Admission: No VTE Mechan Device Prophylaxis: SCD's VTE Pharm Prophylaxis ordered?: Yes Patient Problems: Active and Suspected Problems Influenza A (Acute) Subjective: Seated upright at the ED bedside, fatigued appearance notes feels very poorly currently. Objective: Physical Examination: General: awake, alert, oriented x 3 and cooperative, seated upright at the ED bedside, fatigued and mildly ill appearing. Skin: normal color, turgor, no icterus, cyanosis except notable diffuse extremity and thorax as well as abdominal psoriasis with resolved prior right lateral abdominal cellulitis.. HEENT: AT/NC, EOMI, PERRLA, dry MM, no carotid bruits or JVD noted. Lungs: Diminished breath sounds bilaterally, moderate effort, no rales, ronchi or wheezing. Heart: Mildly tachycardic with regular rhythm; no gallop, rub audible. Abdomen: soft, morbidly obese, mild discomfort with palpation as noted to right distal lateral abdominal wall, ND, normal BS, no HSM; however, habitus makes examination difficult. Extremities: no cyanosis, clubbing, bilateral lower extremity edema, previously 3+ pitting, improved from prior. Neurological: patient awake, alert, oriented x 3; cognitive function intact; pupils equally reactive to light and accomodation; cranial nerves II-XII grossly normal, moving all 4 extremities, no focal deficits, strength moderately to severely globally decreased secondary to acute presentation. Psychiatric: affect appears Tiegs, no acute evidence of depressive or anxiety feelings. - Physical Exam Vital Signs Temp Pulse Resp BP Pulse Ox 100.3 F H 99 20 H 134/69 H 92 11/19/18 23:34 11/19/18 23:34 11/19/18 23:34 11/19/18 23:34 11/19/18 23:34 Oxygen Flow Rate (L/min) 2 Oxygen Delivery Method Room Air Weight: 525 lb 6.829 oz Body Mass Index (BMI) 67.4 Microbiology Past 72 Hours 11/19/18 21:00 Influenza Types A,B Direct FA (IZAIAH) - Final Mucosa - Nasopharyngeal Influenzae A Laboratory Tests Past 24 Hrs 11/19/18 11/19/18 21:15 21:15 WBC 6.2 RBC 4.43 L Hgb 13.3 Hct 41.4 MCV 93.5 MCH 30.0 MCHC 32.1 RDW 14.0 RDW Differential 47.5 H Plt Count 177 MPV 9.9 Immature Gran % (Auto) 0.200 Neut % (Auto) 76.4 H Lymph % (Auto) 8.4 L [place] % (Auto) 14.6 H Eos % (Auto) 0.2 Baso % (Auto) 0.2 Absolute Neuts (auto) 4.8 Absolute Lymphs (auto) 0.52 L Total Counted Not Reportable Differential Comment SEE COMMENT Platelet Estimate ADEQUATE Anisocytosis RARE Macrocytosis RARE Sodium 134 L Potassium 3.7 Chloride 96 L Carbon Dioxide 30.0 Anion Gap 8 BUN 10 Creatinine 0.92 Estim Creat Clear Calc 127.82 Est GFR (MDRD) Af Amer 119 Est GFR (MDRD) Non-Af 99 BUN/Creatinine Ratio 10.9 Glucose 89 Calcium 8.3 L Assessment/Plan All Active Problems Cellulitis (Resolved) Influenza A (Acute) The patient is a 38 y/o M w/ PMHx: Morbid Obesity, ANTONIO non-compliant with CPAP, Chronic Pain Syndrome with chronic back pain and bilateral lower extremity radiculopathy, HTN, HLD, Anxiety and Depression, Tobacco use who was recently discharged from [facility] on 11/18/18 following treatment for abdominal wall cellulitis, discharged on keflex regimen who now re-presents to the [facility] ED on 11/20/18 with history of notable severe diarrhea with 6-8 bouts at least through the day with associated abdominal cramping in addition to onset fevers, chills, arthralgias, myalgias and mild dyspnea over the last 24 hours prompting return to the ED. (1) General Malaise, Mild Dyspnea without Marked Cough, Fever, General Debility, Diarrhea secondary to Influenza A Viral Syndrome: Diarrhea usually not markedly present with influenza A, some concern given recent antibiotic usage, enteric pathogen and C. difficile stools also requested, rapid influenza was a positive and patient was initiated on influenza as noted in the ED. Will admit to [facility], will consult Case Management for discharge planning assist given patient does not have any access to running water or functional toilet, maintained on Tamiflu, and supplementation if needed, continue ATC duonebs, PRN albuterol, HOB, IS parameters. (2) Resolved, Recent Abdominal Wall Cellulitis: We will continue Keflex regimen however given recent diarrhea C. difficile and enteric pathogen is pending, monitor for recurrent erythema outline with VS checks. (3) Hypertension: Continue home regimen including Lasix, metoprolol, PRN hydralazine. (4) Morbid Obesity: Weight loss and lifestyle changes encouraged, recent discharge is noted with nutrition consulted at that time for education and teaching. (5) Chronic pain syndrome, chronic back pain with radiculopathy: Frequent position changes, fall precautions, continue home Flexeril, Voltaren, gabapentin, oxycodone regimen. (6) Anxiety and Depression: Continue home Cymbalta regimen. (7) Tobacco Abuse: Encouraged cessation, inpatient consultation per RT, NR if desired. (8) GERD: Famotidine. (9) ANTONIO: Non-compliant with CPAP. (10) DVT Prophylaxis: SCDs, lovenox. Code Visit OBSV E&M: 94040 Initial observation care L3
--- NOTE | 2018-11-20 00:17 | ED.DCSUM_ITS ---
- ER Visit Summary Date of Service: 11/20/18 Chief Complaint: Short of breath, diarrhea History of Present Illness: The patient is a 38 M who was admitted November 16 for cellulitis of his abdominal wall. He was discharged home yesterday. Patient states after arriving home he developed significant diarrhea. He also complains of mild cough. He has not noted a fever at home. Past history significant for cellulitis, psoriasis, back pain, hypertension. Physical Examination: Vital signs significant for blood pressure 163/119, temperature 100.1, heart rate 110, respiratory rate 22, pulse ox 93% on room air. Patient sitting on the side of bed. He is in no acute distress. Head neck examination unremarkable. Heart is tachycardic and regular. Lungs sounds are clear. Abdomen is soft, obese, nontender. Skin examination reveals psoriasis lesions on his trunk and extremities. Test Results: CBC was normal white count but left shift is noted. Chemistry studies grossly unremarkable. Influenza swab is positive for flu A. Portable chest x-ray shows no airspace consolidation. Blood cultures have been sent. Emergency Department Course and Treatment: Patient was given IV fluids and Tylenol. We did order stool studies but patient has not been able to provide a sample here. Patient was given Tamiflu for his influenza. I discussed with him possible treatment at home. Patient would prefer admission if at all possible. He states that when he arrived home he realized he did not have any running water at his trailer. We will need to have social work see the patient to help make arrangements as well. Treatment Plan: [] Disposition: Admit Impression: 1. Influenza 2. Diarrhea This note was generated with [employer] dictation software. It may contain incorrect words, spelling, and punctuation that were not noted in review of the chart prior to signing ED Disposition - Plan for ED Patient: Referrals: Luci Licona DO [Primary Care Provider] -
[2018-11-20] MEDS: Albuterol 2.5 MG/3 ML VIAL.NEB. INHALATION (02:39)
[2018-11-20] MEDS: 0.9% Normal Saline 1,000 ML 125 ML IV ×3 (04:02→20:03)
[2018-11-20] MEDS: Acetaminophen 325 MG Tablet 650 MG PO (04:02)
[2018-11-20 05:58] LABS: Absolute Lymphocyte Count 0.67 X10^3/ul (0.83-4.51); Basophil# 0.02 X10^3/uL; Basophil% 0.4 % (0-1); Hematocrit 39.2 % (40-54); Hemoglobin 12.8 g/dl (13.0-16.5); Lymphocyte # 0.67 X10^3/ul (4.0); Lymphocyte % 12.3 % (19-41); Mean Corp Hgb Conc 32.7 g/gl (32-36); Mean Corpuscular Hgb 30.5 pg (27.0-32.0); Mean Corpuscular Volume 93.3 fL (80-94); Mean Platelet Vol. 9.7 fl (6.2-12.0); Monocyte# 0.74 X10^3/uL; Monocyte% 13.6 % (0-10); Neutrophil # 3.99 X10^3/uL (2.7-7.7); Neutrophil % 73.5 % (47-70); Platelet Count 173 K/mm3 (150-450); RBC Distribution Width CV 14.2 % (11.6-14.6); White Blood Count 5.4 K/mm3 (4.4-11.0)
[2018-11-20 06:00] LABS: POSITIVE COUNT NO; POSITIVE DIFFERENTIAL NO; POSITIVE MORPHOLOGY NO
[2018-11-20 06:13] LABS: Anion Gap 10 (5-15); BUN 12 mg/dL (7-18); BUN/Creat Ratio 15.3 RATIO (10-20); Calcium,Total 8.4 mg/dL (8.5-10.1); Chloride 101 mmol/L (98-107); Creatinine, Serum 0.78 mg/dL (0.70-1.30); EST Glomerular Filtration Rate 118 mL/min (>60); Est Glom Filt Rate - Afr Amer 143 mL/min (>60); Estimated Creatinine Clearance 150.76 ml/min; Glucose 106 mg/dL (74-106); Potassium 3.6 mmol/L (3.5-5.1); Sodium Level 136 mmol/L (136-145)
[2018-11-20] MEDS: Gabapentin 600 MG Tablet PO ×3 (07:58→16:18)
[2018-11-20] MEDS: Ipratropium/Albuterol Sulfate 3 ML AMPUL.NEB INHALATION ×2 (07:58→13:51)
[2018-11-20] MEDS: Metoprolol(XL)Succ 25 MG Tablet PO ×2 (10:07→21:32)
[2018-11-20] MEDS: Famotidine 20 MG Tablet PO ×2 (10:07→21:32)
[2018-11-20] MEDS: Cephalexin 500 MG Capsule PO ×2 (10:07→21:32)
[2018-11-20] MEDS: Furosemide 80 MG Tablet PO (10:07)
[2018-11-20] MEDS: Enoxaparin 40 MG/0.4 ML Syringe SC (10:08)
[2018-11-20] MEDS: Oseltamivir Phosphate 75 MG Capsule PO ×2 (10:08→21:32)
[2018-11-20] MEDS: DULoxetine Hcl 20 MG Capsule PO (10:08)
--- NOTE | 2018-11-20 11:57 | PCM.PROGNOTE ---
Patient Problems: Active and Suspected Problems Influenza A (Acute) Subjective: The patient is a 38-year-old male with a past medical history of super obesity, obstructive sleep apnea noncompliant with CPAP, chronic pain syndrome with chronic back pain and bilateral lower extremity radiculopathy, hypertension, hyperlipidemia, anxiety/depression, tobacco dependence and recent admission to [facility], discharged on 11/18/2018, following treatment for abdominal wall cellulitis. He presented to the emergency room on 11/20/2018 complaining of severe diarrhea, abdominal cramping, fevers, chills, arthralgias, myalgias and dyspnea. He was admitted to the hospital with a diagnosis of influenza A. Chest x-ray showed no infiltrates. Lab was unremarkable. Tmax 101.2. Tachycardia has resolved. Blood pressures were markedly elevated at admission but have come under better control and the current blood pressure is 151/70. He is 95% on RA. Oral intake was 1050 overnight. Pulse ox dropped to 77% after ambulating back from the bathroom and sitting at the edge of the bed. He does have a history of sleep apnea is noncompliant CPAP. C. difficile and enteric pathogen panel were negative. Fecal leukocytes were negative. Objective: PHYSICAL EXAM: GENERAL: alert, oriented X 3, Cooperative, NAD, appears fatigued ORAL: Dry mucosa, no mucosal lesions NECK: No JVD but, with the aburto and the short thick neck it is difficult to ascertain, supple, trachea midline LUNGS: CTA, symmetric chest expansion, diminished throughout, no rales, no wheezes, no rhonchi HEART: RRR, Normal S1 and S2, no rub, no gallop ABDOMEN: soft, NT, ND, BS present, no guarding with palpation, morbidly obese EXTREMITIES: no edema, no cyanosis, no calf tenderness SKIN: No rashes, no breakdown NEUROLOGIC: no focal neurologic deficits PSYCH: appropriate, normal affect, pleasant - Physical Exam Vital Signs Temp Pulse Resp BP Pulse Ox 99.4 F H 90 24 H 151/70 H 95 11/20/18 10:18 11/20/18 10:18 11/20/18 10:18 11/20/18 10:18 11/20/18 10:18 Oxygen Flow Rate (L/min) 2 Oxygen Delivery Method Room Air Weight: 525 lb Body Mass Index (BMI) 67.3 Intake and Output for Last 24 Hours 11/18/18 11/19/18 11/20/18 23:59 23:59 23:59 Intake Total 2423 / 2423 Balance 2423 / 2423 Microbiology Past 72 Hours 11/19/18 21:00 Influenza Types A,B Direct FA (IZAIAH) - Final Mucosa - Nasopharyngeal Influenzae A Laboratory Tests Past 24 Hrs 11/19/18 11/19/18 11/20/18 21:15 21:15 05:25 WBC 6.2 5.4 RBC 4.43 L 4.20 L Hgb 13.3 12.8 L Hct 41.4 39.2 L MCV 93.5 93.3 MCH 30.0 30.5 MCHC 32.1 32.7 RDW 14.0 14.2 RDW Differential 47.5 H 47.0 H Plt Count 177 173 MPV 9.9 9.7 Immature Gran % (Auto) 0.200 0.200 Neut % (Auto) 76.4 H 73.5 H Lymph % (Auto) 8.4 L 12.3 L [place] % (Auto) 14.6 H 13.6 H Eos % (Auto) 0.2 0.0 Baso % (Auto) 0.2 0.4 Absolute Neuts (auto) 4.8 4.0 Absolute Lymphs (auto) 0.52 L 0.67 L Total Counted Not Reportable Not Reportable Differential Comment SEE COMMENT Platelet Estimate ADEQUATE Anisocytosis RARE Macrocytosis RARE Sodium 134 L Potassium 3.7 Chloride 96 L Carbon Dioxide 30.0 Anion Gap 8 BUN 10 Creatinine 0.92 Estim Creat Clear Calc 127.82 Est GFR (MDRD) Af Amer 119 Est GFR (MDRD) Non-Af 99 BUN/Creatinine Ratio 10.9 Glucose 89 Calcium 8.3 L 11/20/18 05:25 WBC RBC Hgb Hct MCV MCH MCHC RDW RDW Differential Plt Count MPV Immature Gran % (Auto) Neut % (Auto) Lymph % (Auto) [place] % (Auto) Eos % (Auto) Baso % (Auto) Absolute Neuts (auto) Absolute Lymphs (auto) Total Counted Differential Comment Platelet Estimate Anisocytosis Macrocytosis Sodium 136 Potassium 3.6 Chloride 101 Carbon Dioxide 25.0 Anion Gap 10 BUN 12 Creatinine 0.78 Estim Creat Clear Calc 150.76 Est GFR (MDRD) Af Amer 143 Est GFR (MDRD) Non-Af 118 BUN/Creatinine Ratio 15.3 Glucose 106 Calcium 8.4 L Medical Necessity - Tobacco Use Smoking Status: Current every day smoker Tobacco Use: Cigarettes Assessment/Plan All Active Problems Cellulitis (Resolved) Influenza A (Acute) Impressions 1. Influenza A 2. Diarrhea 3. Recent abdominal wall cellulitis-resolved 4. Obstructive sleep apnea with marked hypoxemia after exertion and when sleeping-noncompliant with CPAP 5. Chronic pain syndrome 6. Anxiety/depression 7. Tobacco dependence 8. GERD 9. Hyponatremia-resolved Continue Tamiflu Imodium as needed for diarrhea Consult discharge planning -he really does not need to be in the hospital but has no running water at home
--- NOTE | 2018-11-20 13:52 | CPS ---
PT desaturates to the mid 70% when sleeping. Placed on O2 by nurse.
[2018-11-20] MEDS: DULoxetine Hcl 30 MG Capsule PO (16:02)
[2018-11-20] MEDS: oxyCODONE 5 MG Tablet 15 MG PO (21:36)
[2018-11-21] MEDS: Loperamide 2 MG Capsule PO ×2 (02:21→06:31)
[2018-11-21 02:24] VITALS: BP 117/73; PULSE 71; RESP 18; TEMP 36.1; O2SAT 98
[2018-11-21] MEDS: 0.9% Normal Saline 1,000 ML 125 ML IV (04:08)
[2018-11-21] MEDS: Ipratropium/Albuterol Sulfate 3 ML AMPUL.NEB INHALATION ×2 (07:20→13:49)
[2018-11-21 07:54] VITALS: PULSE 92; RESP 20; O2SAT 95
[2018-11-21 08:44] VITALS: BP 132/64; PULSE 72; RESP 20; TEMP 37.5; O2SAT 92
--- NOTE | 2018-11-21 09:31 | DCINST_ITS ---
- Discharge Diagnoses Current Active Problems: Current Active and Chronic Problems Influenza A (Acute) You will use the following diet at home:: No restrictions Your food should be the consistency of: Regular Your liquids should be the consistency of: Regular/Thin Discharge Activity: Return to Normal Activity Weight Bearing Status: Full weight bearing Allergies/Adverse Reactions: Allergies No Known Allergies Allergy (Verified 11/19/18 20:16) Medications to take at Discharge Cyclobenzaprine [Flexeril] 10 mg PO TID 08/07/16 Diclofenac [Voltaren] 50 mg PO TIDCM 08/07/16 Gabapentin [Neurontin] 600 mg PO TIDCM 08/07/16 Oxycodone [Oxyir] 15 mg PO 4X/DAY PRN PRN 08/07/16 Duloxetine Hcl [Cymbalta] 20 mg PO DAILY 12/29/17 Furosemide 80 mg PO DAILY 12/29/17 Hydrochlorothiazide 12.5 - 25 mg PO DAILY 12/29/17 Metoprolol Succinate [Toprol Xl] 25 mg PO BID 12/29/17 Cephalexin [Keflex] 500 mg PO Q12 #14 capsule 11/18/18 Dicyclomine HCl [Bentyl] 20 mg PO TIDAC #30 capsule 11/21/18 Loperamide [Imodium] 4 mg PO Q4H PRN PRN #30 capsule 11/21/18 Oseltamivir Phosphate [Tamiflu] 75 mg PO BID #8 capsule 11/21/18 The following prescriptions were given: Loperamide [Imodium] 4 mg PO Q4H PRN PRN #30 capsule PRN Reason: Diarrhea Dicyclomine HCl [Bentyl] 20 mg PO TIDAC #30 capsule Oseltamivir Phosphate [Tamiflu] 75 mg PO BID #8 capsule Primary Care Physician: Luci Licona DO [Primary Care Provider] - Please follow up with your Primary Care Physician in: in one week Test Results: Test results from this visit will be discussed in further detail at your follow- up appointment, if applicable.
[2018-11-21 09:41] VITALS: PULSE 60
[2018-11-21] MEDS: Metoprolol(XL)Succ 25 MG Tablet PO (09:41)
[2018-11-21] MEDS: Oseltamivir Phosphate 75 MG Capsule PO (09:41)
[2018-11-21] MEDS: Furosemide 80 MG Tablet PO (09:41)
[2018-11-21] MEDS: Famotidine 20 MG Tablet PO (09:41)
[2018-11-21] MEDS: DULoxetine Hcl 30 MG Capsule PO (09:41)
[2018-11-21] MEDS: Cephalexin 500 MG Capsule PO (09:41)
[2018-11-21] MEDS: oxyCODONE 5 MG Tablet 15 MG PO ×2 (09:49→13:53)
[2018-11-21] MEDS: Gabapentin 600 MG Tablet PO ×2 (09:49→13:53)
[2018-11-21 13:49] VITALS: PULSE 93; RESP 20
[2018-11-21 15:56] VITALS: BP 138/72; PULSE 78; RESP 20; TEMP 36.7; O2SAT 91
--- NOTE | 2018-11-24 17:47 | DS.PCM_ITS ---
Discharge Date and Diagnosis Date of Admission: 11/20/18 Date of Discharge: 11/21/18 - Primary Discharge Diagnosis #1 acute influenza A #2 super morbid obesity #3 hypertension #4 anxiety and depression #5 acute diarrhea-etiology unclear #6 obstructive sleep apnea was unconfirmed - Secondary Discharge Diagnosis Chronic Problems Degeneration of intervertebral disc of lumbosacral region (Chronic) Radiculopathy of lumbosacral region (Chronic) Morbid obesity (Chronic) Tobacco dependence syndrome (Chronic) Psoriasis (Chronic) Alcohol abuse (Chronic) Hospital Course and Treatment Operations: None Procedures: None Summary of Care Provided: The patient is a 38 year old M who was seen in the emergency room at [facility] with chief complaint of diarrhea and generalized malaise, workup in the emergency room included a swab fluid for influenza A which was positive, patient was given IV fluids and [facility] Documentation was made by the hospitalist service that the patient had a history of obstructive sleep apnea with noncompliance with prescribed CPAP, patient denied ever being told he had obstructive sleep apnea and he did not have a CPAP apparatus at home. During the patient's hospital stay, he was observed to have oxygen desaturation at the time he was sleeping by respiratory therapy. Patient was notified of this and it was urged that he follow-up with his PCP at the time of discharge for a workup for obstructive sleep apnea. Patient's diarrhea lessened during his hospital stay, he was given Tamiflu for influenza A treatment. Physical exam: On examination he appeared in good health and spirits. Vital signs as documented. Skin warm and dry and without overt rashes. Neck without JVD. Lungs clear. Heart exam notable for regular rhythm, normal sounds and absence of murmurs, rubs or gallops. Abdomen-patient has super morbid obesity, abdomen is nontender, bowel sounds are present in all 4 quadrants. Neuro: Cranial nerves II through XII are grossly intact, no focal motor deficits were noted, sensation to light touch and pinprick intact. Psych: Patient is alert and oriented x3, he does not appear anxious or depressed On 11/21/18, patient was seen and examined felt to be in stable condition for discharge home - Physical Exam Vital Signs Temp Pulse Resp BP Pulse Ox 98.1 F 78 20 H 138/72 H 91 11/21/18 15:56 11/21/18 15:56 11/21/18 15:56 11/21/18 15:56 11/21/18 15:56 Oxygen Flow Rate (L/min) 2 Oxygen Delivery Method Room Air Weight: 238.136 kg Body Mass Index (BMI) 67.3 Microbiology Past 72 Hours 11/20/18 08:30 Ova and Parasites - Final Stool 11/19/18 21:20 Blood Culture - Preliminary Blood Culture (Wb) - Anticubital Right No growth in 48 hours. 11/19/18 21:15 Blood Culture - Preliminary Blood Culture (Wb) - Anticubital Left No growth in 48 hours. Discharge Activity: Return to Normal Activity Weight Bearing Status: Full weight bearing Home Medications: Medications to take at Discharge Cyclobenzaprine [Flexeril] 10 mg PO TID 08/07/16 Diclofenac [Voltaren] 50 mg PO TIDCM 08/07/16 Gabapentin [Neurontin] 600 mg PO TIDCM 08/07/16 Oxycodone [Oxyir] 15 mg PO 4X/DAY PRN PRN 08/07/16 Duloxetine Hcl [Cymbalta] 20 mg PO DAILY 12/29/17 Furosemide 80 mg PO DAILY 12/29/17 Hydrochlorothiazide 12.5 - 25 mg PO DAILY 12/29/17 Metoprolol Succinate [Toprol Xl] 25 mg PO BID 12/29/17 Cephalexin [Keflex] 500 mg PO Q12 #14 capsule 11/18/18 Dicyclomine HCl [Bentyl] 20 mg PO TIDAC #30 capsule 11/21/18 Loperamide [Imodium] 4 mg PO Q4H PRN PRN #30 capsule 11/21/18 Oseltamivir Phosphate [Tamiflu] 75 mg PO BID #8 capsule 11/21/18 Following Prescrptions Were Given to Patient: Loperamide [Imodium] 4 mg PO Q4H PRN PRN #30 capsule PRN Reason: Diarrhea Dicyclomine HCl [Bentyl] 20 mg PO TIDAC #30 capsule Oseltamivir Phosphate [Tamiflu] 75 mg PO BID #8 capsule Primary Care Physician: Luci Licona DO [Primary Care Provider] - Please follow up with your Primary Care Physician in: in one week Disposition: Home Minutes spent on discharge:: 25 Patient Condition:: Stable Medical Necessity - Tobacco Use Smoking Status: Current every day smoker Tobacco Use: Cigarettes Meaningful Use Info Meaningful Use Diagnoses (Choose all that apply): None applicable Code Visit OBSV E&M: 45910 Observation care discharge
== END 2018-11-21 16:15 | disposition home or self-care (01) ==
LOC: ED 20:40 → MS2 11-20 00:18
PROVIDERS: Admitting Provider Family Medicine; Emergency Provider Emergency Medicine; Family Provider Family Medicine; PCP Family Medicine; Visit Provider Internal Medicine
DX: J10.1 Influenza due to other identified influenza virus with other respiratory manifestations (principal); Z23 Encounter for immunization; E66.01 Morbid (severe) obesity due to excess calories; I10 Essential (primary) hypertension; F41.9 Anxiety disorder, unspecified; F32.9 Major depressive disorder, single episode, unspecified; R19.7 Diarrhea, unspecified; Z91.19 Patient's noncompliance with other medical treatment and regimen; M51.17 Intervertebral disc disorders with radiculopathy, lumbosacral region; L40.9 Psoriasis, unspecified; Z68.44 Body mass index [BMI] 60.0-69.9, adult; Z71.3 Dietary counseling and surveillance; Z79.899 Other long term (current) drug therapy; E78.5 Hyperlipidemia, unspecified; F17.210 Nicotine dependence, cigarettes, uncomplicated; G89.4 Chronic pain syndrome; E87.1 Hypo-osmolality and hyponatremia; K21.9 Gastro-esophageal reflux disease without esophagitis
CPT/HCPCS: 36415; 71045; 80048; 83630; 85025; 87040; 87177; 87209; 87493; 87506; 87804; 94640; 96360; 96361; 96372; 97802; 99218; 99284; J7030; J7040; 90686; A4216; G0378

== ENCOUNTER 2019-08-27 01:08 | Inpatient (IN) | payer MEDICAID, SELFPAY ==
[2018-11-20 01:09] VITALS: BMI 67.3
[2019-08-27] VITALS (24 sets, daily range): BP systolic 140–157; BP diastolic 60–114; PULSE 71–89; RESP 12–30; TEMP 36.4–36.7; O2SAT 91–96; BMI 67.9
--- NOTE | 2019-08-27 01:19 | ED.RN ---
PATIENT IS ALSO TAKING DAYQUIL/NYQUIL, JANNA SELTZER SINCE WEDNESDAY THIS WEEK FOR THE SYMPTOMS.
--- NOTE | 2019-08-27 01:29 | EKG12_ITS ---
Test Reason : SOB Blood Pressure : / mmHG Vent. Rate : 082 BPM Atrial Rate : 082 BPM P-R Int : 158 ms QRS Dur : 090 ms QT Int : 388 ms P-R-T Axes : 000 061 053 degrees QTc Int : 453 ms Normal sinus rhythm Low voltage QRS Septal infarct , age undetermined Abnormal ECG Confirmed by NATALIE RETANA, CIRO ([id number]), editor map ARA BRADSHAW ([id number]) on 08/29/2019 10:05:43 AM Referred By: Anny Humphrey Confirmed By:CIRO ESTRADA MD
--- NOTE | 2019-08-27 01:30 | ED.VIS.GEN ---
History of Present Illness Chief Complaint: Shortness of Breath Narrative: Patient is a 39-year-old male who presents with shortness of breath. This initially began on , 3 days ago. He also complains of congestion rhinorrhea and productive cough with white or green sputum. He feels like his chest and advice. He complains of squeezing chest pain. His shortness of breath and chest pain acutely worsened tonight while he was pulling some old carpet off of [place]. He reports nausea with dry heaving and diarrhea. No fevers. No sore throat. Past Medical History - Allergies and Home Meds Allergies/Adverse Reactions: Allergies No Known Allergies Allergy (Verified 08/27/19 01:09) Primary Care Physician: Luci Licona DO [Primary Care Provider] - Past Medical History: - - Peripheral edema, psoriasis, super morbid obesity Surgical History: no surgical history Smoking Status: Current every day smoker - Family History Maternal Family History: Reports: Diabetes Paternal Family History: Reports: Diabetes Review of Systems All systems negative except as indicated General: Denies: Fever Eyes: Denies: Visual changes - bilaterally ENT: Reports: Rhinorrhea Cardiovascular: Reports: Chest pain Respiratory: Reports: Dyspnea, Cough, Sputum Gastrointestinal: Reports: Nausea, Diarrhea. Denies: Abdominal pain, Vomiting Genitourinary: Denies: Dysuria Musculoskeletal: Reports: Myalgias Skin: Denies: Rash Neurological: Denies: Headache Physical Exam Vital Signs/Narrative: Vital Signs Temp Pulse Resp BP Pulse Ox 08/27/19 01:09 97.6 F L 83 30 H 156/85 H 91 Inital Vital Signs reviewed: Yes General: Well nourished, Obese Head: Normocephalic Eyes: EOMI ENT: Moist mucous membranes Neck: Supple Cardiovascular: Regular rate, Regular rhythm Respiratory: Wheezing, - - Dyspneic, tachypnea, increased work of breathing, speaking short sentences Abdomen: Soft, Nontender, Nondistended Extremities: Nontender, Edema Skin: Normal color, Rash - Psoriasis Neurological: Alert Psychological: Normal affect Diagnostic/Tx/Re-eval Impressions Chest X-Ray 08/27/19 02:30 IMPRESSION: No acute cardiopulmonary disease, stable study in the interval. Electronically Signed: Maria A Tomlinson MD at 2:42 EST , Service support , 08/27/19 02:30 Chest PA and Lateral [RAD] Stat 08/27/19 01:40 Mucosa - Nasopharyngeal Influenza Types A,B Direct FA ([facility]) - Final Laboratory Results 08/27/19 08/27/19 01:20 01:20 WBC 8.8 RBC 4.40 L Hgb 13.4 Hct 41.7 MCV 94.8 H MCH 30.5 MCHC 32.1 RDW Std Deviation 47.3 H RDW Coeff of Lizett 13.6 Plt Count 186 MPV 9.5 Immature Gran % (Auto) 0.600 Neut % (Auto) 68.3 Lymph % (Auto) 17.6 L [place] % (Auto) 8.2 Eos % (Auto) 4.8 Baso % (Auto) 0.5 Absolute Neuts (auto) 6.0 Absolute Lymphs (auto) 1.54 Nucleated RBC % 0 Sodium 141 Potassium 3.9 Chloride 105 Carbon Dioxide 31.0 Anion Gap 5 BUN 15 Creatinine 0.85 Estim Creat Clear Calc 137.00 Est GFR (MDRD) Af Amer 130 Est GFR (MDRD) Non-Af 107 BUN/Creatinine Ratio 17.7 Glucose 141 H Calcium 8.8 Troponin I < 0.015 - Medical Decision Making EKG shows normal sinus rhythm at a rate of 82, no acute ischemic changes. Labs unremarkable. Troponin negative. Rapid influenza negative. Chest x-ray shows no acute process. On reevaluation on room air he is maintaining an oxygen saturation of 94 to 97%. I suspect this is related to a viral syndrome/bronchitis. We will discharge with an albuterol inhaler and prednisone burst. He understands to return for new or worsening symptoms. Questions answered at bedside. Patient discharged. He is agreeable to this plan. ED Disposition - Plan for ED Patient: Disposition: Home or Assisted Living Diagnosis: Bronchitis Instructions: BRONCHITIS with Wheezing (Adult) Prescriptions: predniSONE tablet 60 mg PO DAILY #15 tab Prescription Printed Albuterol Inhaler [Ventolin Hfa] 1 - 2 puff INHALATION Q4H PRN PRN #1 inhaler PRN Reason: Wheezing Prescription Printed Referrals: Luci Licona DO [Primary Care Provider] -
[2019-08-27 01:38] LABS: Absolute Lymphocyte Count 1.54 X10^3/uL (0.83-4.51); Basophil# 0.04 X10^3/uL; Basophil% 0.5 % (0-1); Eosinophil# 0.42 X10^3/uL; Eosinophils% 4.8 % (0-5); Hematocrit 41.7 % (40-54); Hemoglobin 13.4 g/dL (13.0-16.5); Lymphocyte # 1.54 X10^3/ul (4.0); Lymphocyte % 17.6 % (19-41); Mean Corp Hgb Conc 32.1 g/dL (32-36); Mean Corpuscular Hgb 30.5 pg (27.0-32.0); Mean Corpuscular Volume 94.8 fL (80-94); Mean Platelet Vol. 9.5 fl (6.2-12.0); Monocyte# 0.72 X10^3/uL; Monocyte% 8.2 % (0-10); NRBC Flagged by Analyzer 0 % (0-5); Neutrophil # 5.98 X10^3/uL (2.7-7.7); Neutrophil % 68.3 % (47-70); Platelet Count 186 K/mm3 (150-450); RBC Distribution Width CV 13.6 % (11.6-14.6); RBC Distribution Width SD 47.3 fl (35.1-43.9); White Blood Count 8.8 K/mm3 (4.4-11.0)
[2019-08-27] MEDS: Albuterol 2.5 MG/3 ML VIAL.NEB. INHALATION (01:42)
[2019-08-27] MEDS: Ipratropium/Albuterol Sulfate 3 ML AMPUL.NEB INHALATION ×4 (01:42→18:54)
[2019-08-27] MEDS: MethylPREDNISolone 125 MG/2 ML Vial IV (01:43)
[2019-08-27 01:52] LABS: Anion Gap 5 (5-15); BUN 15 mg/dL (7-18); BUN/Creat Ratio 17.7 RATIO (10-20); Calcium,Total 8.8 mg/dL (8.5-10.1); Chloride 105 mmol/L (98-107); Creatinine, Serum 0.85 mg/dL (0.70-1.30); EST Glomerular Filtration Rate 107 mL/min (>60); Est Glom Filt Rate - Afr Amer 130 mL/min (>60); Glucose 141 mg/dL (74-106); Potassium 3.9 mmol/L (3.5-5.1); Sodium Level 141 mmol/L (136-145)
--- NOTE | 2019-08-27 02:30 | RAD_ITS ---
STUDY: X-RAY CHEST REASON FOR EXAM: Male, 39 years old. Shortness of breath. TECHNIQUE: PA and lateral views of the chest. COMPARISON: 11/19/2018. FINDINGS: The lungs are clear and expanded. There is no demonstrated pleural abnormality. Normal size heart. Normal mediastinum and radha. Normal visualized pulmonary arteries. Normal visualized aortic arch and descending thoracic aorta. There are mild degenerative changes of the visualized thoracic spine. Normal visualized ribs, clavicles, and shoulders. There is no demonstrated abnormality of the visualized soft tissue structures of the upper abdomen. RAD/Chest PA and Lateral IMPRESSION: No acute cardiopulmonary disease, stable study in the interval. Electronically Signed: Maria A Tomlinson MD at 2:42 EST , Service support ,
--- NOTE | 2019-08-27 03:41 | HP.PCM_ITS ---
Problem List (1) Bronchitis Status: Acute (2) Acute respiratory failure with hypoxia Status: Acute (3) HTN (hypertension) Status: Chronic Qualifiers: Hypertension type: essential hypertension Qualified Code(s): I10 - Essential (primary) hypertension (4) Chronic acquired lymphedema Status: Chronic (5) Radiculopathy of lumbosacral region Status: Chronic (6) Morbid obesity Status: Chronic (7) ANTONIO (obstructive sleep apnea) Status: Suspected (8) Tobacco dependence syndrome Status: Chronic (9) Psoriasis Status: Chronic History of Present Illness Date of Admission: 08/27/19 Chief Complaint: Dyspnea, cough, chest tightness The patient is a 39 y/o M w/ PMHx: Tobacco use, Morbid Obesity, HTN, Suspected ANTONIO, Psoriasis, Chronic back pain w/ radiculopathy, Anxiety and Depression, IBS who presents to the [facility] ED on 08/27/19 with history of 1 week of progressively worsening fatigue, malaise, congestion, rhinorrhea, mildly productive cough which is been intractable with chest tightness and wheezing with no specific fevers or chills prompting eventual ED presentation. In the ED upon evaluation patient is seated upright at the bedside, increased work of breathing, accessory muscle usage, difficulty speaking in full sentences and when he does speak oxygenation decreases. Work-up in the ED included T 97.6, heart rate 83, BP 156/85, respiratory rate initially 30, 91% on room air-->88% despite interventions, CBC with WC 8.8, hemoglobin 13.4, platelet 186 without left shift, BMP unremarkable aside glucose 141, troponin less than 0.015, rapid influenza negative, chest x-ray with no acute cardiopulmonary findings. In the ED patient administered albuterol and DuoNeb therapies as well as Solu-Medrol 125 mg IV x1. Past Medical History Past Medical History (Chronic Problems): Chronic Problems HTN (hypertension) (Chronic) Chronic acquired lymphedema (Chronic) Degeneration of intervertebral disc of lumbosacral region (Chronic) Radiculopathy of lumbosacral region (Chronic) Morbid obesity (Chronic) Tobacco dependence syndrome (Chronic) Psoriasis (Chronic) Alcohol abuse (Chronic) Allergies No Known Allergies Allergy (Verified 08/27/19 01:09) Home Medications: Ambulatory Orders Medication Instructions Recorded Diclofenac [Voltaren] 50 mg PO TIDCM 08/07/16 Gabapentin [Neurontin] 600 mg PO TIDCM 08/07/16 Oxycodone [Oxyir] 15 mg PO 4X/DAY PRN PRN 08/07/16 cycloBENZAPRine HCl [Flexeril] 10 mg PO TID 08/07/16 Duloxetine Hcl [Cymbalta] 20 mg PO DAILY 12/29/17 Furosemide 80 mg PO DAILY 12/29/17 Hydrochlorothiazide 12.5 - 25 mg PO DAILY 12/29/17 Metoprolol Succinate [Toprol Xl] 25 mg PO BID 12/29/17 Loperamide [Imodium] 4 mg PO Q4H PRN PRN #30 capsule 11/21/18 Albuterol Inhaler [Ventolin Hfa] 1 - 2 puff INHALATION Q4H PRN PRN 08/27/19 #1 inhaler Dicyclomine HCl [Bentyl] 20 mg PO TIDAC 08/27/19 predniSONE tablet 60 mg PO DAILY #15 tab 08/27/19 Surgical History: no surgical history Psychiatric History: Anxiety, Depression Lives: Alone Smoking Status: Current every day smoker - Patient currently smokes approximately 5 self rolled cigarettes daily and notes that he uses 1 can of tobacco chew approximately every 3 days. Tobacco Use: Cigarettes, Chew Alcohol: Occasional Drugs: None - *Family History Maternal History Items: Diabetes Paternal History Items: Diabetes, Heart Disease Review of Systems Constitutional: Reports: Anorexia, Malaise, Weakness, Fatigue. Denies: Chills, Fever, Weight Change HEENT: Reports: Nasal Congestion, Sinus Congestion, Sore Throat. Denies: Head Aches, Sinus Drainage Cardiovascular: Reports: Chest Tightness. Denies: Chest Pain, Palpitations Respiratory: Reports: Cough, Shortness of Breath, Shortness of breath at rest, Shortness of breath upon exertion, Sputum production, Wheezing Gastrointestinal: Denies: Abdominal Pain, Nausea, Vomiting Genitourinary: Denies: Dysuria Musculoskeletal: Reports: Back Pain, Joint Pain. Denies: Joint Tenderness Skin: Denies: Rash, Wounds Neurological: Denies: Numbness, Tingling, Focal weakness Psychiatric: Reports: Anxiety, Depression. Denies: Homicidal Ideations, Suicidal Ideations Hematologic/ Lymphatic: Denies: Easy Bruising, Easy Bleeding VTE Information - Inpt Only VTE Present on Admission: No VTE Mechan Device Prophylaxis: SCD's VTE Pharm Prophylaxis ordered?: Yes Patient Problems: Active and Suspected Problems Bronchitis (Acute) Acute respiratory failure with hypoxia (Acute) Subjective: Seated upright at the ED bedside, increased work of breathing, visible accessory muscle usage, difficulty speaking in full sentences, fatigued appearance. Objective: Physical Examination: General: awake, alert, oriented x 3 and cooperative, seated upright in the ED bed, fatigued appearance, increased work of breathing, accessory muscle usage, desaturations with any prolonged discussion attempts. Skin: normal color, turgor, no icterus, cyanosis except notable psoriasis, untreated per discussion with patient, intertrigo, bilateral lower extremity chronic lymphedema with chronic venous stasis skin changes. HEENT: AT/NC, EOMI, PERRLA, dry MM, posterior OP erythema no carotid bruits or JVD noted. Lungs: Severely diminished throughout, greater bases, diffuse end expiratory wheezing, no obvious rales or rhonchi. Heart: Regular rate and rhythm; no gallop, rub audible. Abdomen: soft, morbidly obese, NTTP, ND, distant normal BS, unable to discern HSM secondary to morbidly obese habitus. Extremities: no cyanosis, clubbing, notable bilateral lower extremity chronic lymphedema. Neurological: patient awake, alert, oriented x 3; cognitive function intact; pupils equally reactive to light and accomodation; cranial nerves II-XII grossly normal, moving all 4 extremities, no focal deficits, strength severely global decrease secondary to acute presentation. Psychiatric: affect appears fatigued, flat, no acute evidence of depressive or anxiety feelings. - Physical Exam Vitals/I&O's: Vital Signs Temp Pulse Resp BP Pulse Ox 97.6 F L 82 25 H 157/60 H 91 08/27/19 01:09 08/27/19 03:35 08/27/19 03:35 08/27/19 03:35 08/27/19 03:35 Oxygen Flow Rate (L/min) 2 Oxygen Delivery Method Room Air Weight: 529 lb 1.75 oz Body Mass Index (BMI) 67.9 Microbiology Past 72 Hours 08/27/19 01:40 Mucosa - Nasopharyngeal Influenza Types A,B Direct FA ([facility]) - Final Laboratory Results 08/27/19 01:20: WBC 8.8, RBC 4.40 L, Hgb 13.4, Hct 41.7, MCV 94.8 H, MCH 30.5, MCHC 32.1, RDW Std Deviation 47.3 H, RDW Coeff of Lizett 13.6, Plt Count 186, MPV 9.5, Immature Gran % (Auto) 0.600, Neut % (Auto) 68.3, Lymph % (Auto) 17.6 L, [place] % (Auto) 8.2, Eos % (Auto) 4.8, Baso % (Auto) 0.5, Absolute Neuts (auto) 6.0, Absolute Lymphs (auto) 1.54, Nucleated RBC % 0 08/27/19 01:20: Sodium 141, Potassium 3.9, Chloride 105, Carbon Dioxide 31.0, Anion Gap 5, BUN 15, Creatinine 0.85, Estim Creat Clear Calc 137.00, Est GFR (MDRD) Af Amer 130, Est GFR (MDRD) Non-Af 107, BUN/Creatinine Ratio 17.7, Glucose 141 H, Calcium 8.8, Troponin I < 0.015 Assessment/Plan All Active Problems Bronchitis (Acute) Acute respiratory failure with hypoxia (Acute) Cellulitis (Resolved) Influenza A (Acute) The patient is a 39 y/o M w/ PMHx: Tobacco use, Morbid Obesity, HTN, Suspected ANTONIO, Psoriasis, Chronic back pain w/ radiculopathy, Anxiety and Depression, IBS who presents to the [facility] ED on 08/27/19 with history of 1 week of progressively worsening fatigue, malaise, congestion, rhinorrhea, mildly productive cough which is been intractable with chest tightness and wheezing with no specific fevers or chills prompting eventual ED presentation. 1. Acute Hypoxic Respiratory Failure secondary to suspected Viral bronchitis, complicated by hypoventilation syndrome: Given presentation in the ED will maintain on telemetry monitoring on MedSurg, obtain ABG, consider initiation of CPAP versus BiPAP if appropriate, maintain on oxygen with wean as tolerated to room air, continue ATC duonebs, PRN albuterol, IV methylprednisolone, HOB, IS parameters, requested respiratory viral panel and sputum cultures. 2. Hypertension: Continue home regimen including Lasix, metoprolol, patient concurrently also noted to be on hydrochlorothiazide in addition to his Lasix regimen, PRN hydralazine. 3. Anxiety and depression: We will continue home duloxetine regimen. 4. Chronic back pain with radiculopathy, chronic pain syndrome: We will continue patient home Flexeril, Voltaren, Cymbalta, gabapentin as well as oxycodone regimen. 5. Morbid Obesity: Weight loss and lifestyle changes encouraged, nutrition consulted. 6. Hyperglycemia: Admission glucose 141, hemoglobin A1c pending. 7. Tobacco Abuse: Encouraged cessation, inpatient consultation per RT, NR if desired. 8. Suspected ANTONIO: CPAP q HS trial discussed with patient and amenable although ABG as noted pending to determine if BiPAP more appropriate at this time. 9. DVT Prophylaxis: SCDs, lovenox. Code Visit Inpatient E&M: 29846 Init Hosp L3
[2019-08-27] MEDS: 0.9% Saline Lock 10 ML Syringe IV ×2 (05:06→22:30)
[2019-08-27] MEDS: 0.9% Normal Saline 1,000 ML 100 ML IV (05:09)
[2019-08-27 05:40] LABS: Allen Test POS; Base Excess 6 mmol/L (-2 to +2); Bicarbonate 31.5 mmol/L (22-26); Blood Gas Specimen Type ART; O2 Delivery Device Nasal Can; PO2 43 mmHG (75-100); SITE R Radial; SO2 75 % (95-99); Total Carbon Dioxide 33 mmol/L; pCO2 55.7 mmHg (35-45); pH 7.36 (7.35-7.45)
[2019-08-27 06:15] LABS: Absolute Neutrophil Count 7.8 X10^3/uL (2.0-7.7); Basophil# 0.04 X10^3/uL; Basophil% 0.4 % (0-1); Eosinophil# 0.07 X10^3/uL; Eosinophils% 0.8 % (0-5); Hematocrit 43.9 % (40-54); Hemoglobin 13.8 g/dL (13.0-16.5); Mean Corp Hgb Conc 31.4 g/dL (32-36); Mean Corpuscular Hgb 29.8 pg (27.0-32.0); Mean Corpuscular Volume 94.8 fL (80-94); Mean Platelet Vol. 9.7 fl (6.2-12.0); Monocyte# 0.16 X10^3/uL; Monocyte% 1.8 % (0-10); NRBC Flagged by Analyzer 0 % (0-5); Neutrophil # 7.76 X10^3/uL (2.7-7.7); Neutrophil % 86.2 % (47-70); Platelet Count 202 K/mm3 (150-450); RBC Distribution Width CV 13.9 % (11.6-14.6); Red Blood Count 4.63 M/mm3 (4.6-6.2)
[2019-08-27] MEDS: cycloBENZAPRine HCl 10 MG Tablet PO ×3 (06:38→22:29)
[2019-08-27] MEDS: Nystatin Powder 15gm Bottle 1 APPLIC TOPICAL ×3 (06:39→22:30)
[2019-08-27] MEDS: Dicyclomine 10 MG Capsule 20 MG PO ×3 (06:40→16:00)
--- NOTE | 2019-08-27 06:46 | CPS ---
specimen obtained appeared to be venous, results read back to Dr. Humphrey
[2019-08-27] MEDS: Gabapentin 600 MG Tablet PO ×3 (07:55→16:53)
[2019-08-27] MEDS: guaiFENesin 10 ML UDC (200MG/10ML) 20 ML PO ×2 (07:55→16:00)
[2019-08-27 08:35] LABS: Hemoglobin A1c 5.7 % (4.2-6.3)
[2019-08-27] MEDS: Metoprolol(XL)Succ 25 MG Tablet PO ×2 (10:09→22:29)
[2019-08-27] MEDS: Furosemide 80 MG Tablet PO (10:10)
[2019-08-27] MEDS: Enoxaparin 40 MG/0.4 ML Syringe SC ×2 (10:10→22:29)
--- NOTE | 2019-08-27 10:41 | PCM.PN.BLA ---
Progress Note Patient was seen and examined. Admitted this morning with hypoxia. Patient appears comfortable. Wheezes on exam. Continue with IV Solu-Medrol, breathing treatments, encourage use of incentive spirometer Follow-up on respiratory panel Pulmonology consult to establish care STROKE Vital Signs/Narrative: Vital Signs Pulse 08/27/19 10:09 80 08/27/19 07:40 80
[2019-08-27] MEDS: DULoxetine Hcl 20 MG Capsule PO (11:00)
[2019-08-27 11:46] LABS: Allen Test POS; Base Excess 4 mmol/L (-2 to +2); Bicarbonate 29.5 mmol/L (22-26); Blood Gas Specimen Type ART; O2 Delivery Device Nasal Can; PO2 70 mmHG (75-100); SITE R Radial; SO2 93 % (95-99); Time Given 1130; Total Carbon Dioxide 31 mmol/L; pH 7.35 (7.35-7.45)
[2019-08-27 14:07] LABS: Anion Gap 7 (5-15); BUN 15 mg/dL (7-18); BUN/Creat Ratio 15.5 RATIO (10-20); Calcium,Total 8.9 mg/dL (8.5-10.1); Chloride 103 mmol/L (98-107); Creatinine, Serum 0.97 mg/dL (0.70-1.30); EST Glomerular Filtration Rate 92 mL/min (>60); Est Glom Filt Rate - Afr Amer 112 mL/min (>60); Estimated Creatinine Clearance 120.05 ml/min; Glucose 215 mg/dL (74-106); Potassium 4.1 mmol/L (3.5-5.1); Sodium Level 139 mmol/L (136-145)
[2019-08-28] VITALS (21 sets, daily range): BP systolic 117–161; BP diastolic 52–77; PULSE 61–102; RESP 12–22; TEMP 36.4–36.8; O2SAT 86–96
[2019-08-28] MEDS: oxyCODONE 5 MG Tablet 15 MG PO ×2 (02:25→19:46)
[2019-08-28] MEDS: Dicyclomine 10 MG Capsule 20 MG PO ×3 (06:36→15:11)
[2019-08-28] MEDS: cycloBENZAPRine HCl 10 MG Tablet PO ×3 (06:37→22:38)
[2019-08-28] MEDS: Nystatin Powder 15gm Bottle 1 APPLIC TOPICAL ×2 (06:37→22:38)
[2019-08-28] MEDS: Ipratropium/Albuterol Sulfate 3 ML AMPUL.NEB INHALATION ×3 (06:57→15:13)
--- NOTE | 2019-08-28 09:19 | ECHOCS_ITS ---
Reason For Study: CAD/ASHD Procedure This was a 2D Doppler, Color Flow transthoracic echocardiogram. Technically difficult study due to patient body habitus. Limited views obtained. Patient scanned supine and elevated due to SOB. Contrast injection was performed. Exam performed portable in patient room. Left Ventricle Normal LV size. The estimated ejection fraction is 55 %. No regional wall motion abnormalities noted. Right Ventricle Normal RV size. Normal systolic function. Atria Normal left atrium. Mitral Valve Mitral valve not well visualized. Tricuspid Valve The tricuspid valve is not well visualized. Aortic Valve The aortic valve is not well visualized. Great Vessels Normal aortic root. Pericardium/Pleural No pericardial effusion. Medication Diluted definity 8ml given slow IV push to enhance endocardial definition. Time Measurements MV dec time: 0.19 sec Doppler Measurements & Calculations MV E max virginie: 99.1 cm/sec MV V2 max: 122.3 cm/sec MV P1/2t max virginie: 121.3 cm/sec MV A max virginie: 64.7 cm/sec MV max P.0 mmHg MV P1/2t: 103.1 msec MV E/A: 1.5 MV V2 mean: 59.6 cm/sec MV mean P.8 mmHg MV dec slope: 344.6 cm/sec2 MV V2 VTI: 35.0 cm MVA(P1/2t): 2.1 cm2 LV V1 max: 97.1 cm/sec LV V1 max P.8 mmHg Interpretation Summary Normal LV size. The estimated ejection fraction is 55 %. No regional wall motion abnormalities noted. Contrast injection was performed. Ordering Physician: Veena Alonzo Referring Physician: Anny Humphrey Performed By: Ayden Nunez RCS
[2019-08-28] MEDS: Gabapentin 600 MG Tablet PO ×3 (09:44→17:21)
[2019-08-28] MEDS: Furosemide 80 MG Tablet PO (09:44)
[2019-08-28] MEDS: Metoprolol(XL)Succ 25 MG Tablet PO ×2 (09:44→22:37)
[2019-08-28] MEDS: Enoxaparin 40 MG/0.4 ML Syringe SC ×2 (09:45→22:37)
--- NOTE | 2019-08-28 11:01 | CON.PCM_ITS ---
Problem List (1) Acute respiratory failure with hypoxia Status: Acute (2) HTN (hypertension) Status: Chronic Qualifiers: Hypertension type: essential hypertension Qualified Code(s): I10 - Essential (primary) hypertension (3) Chronic acquired lymphedema Status: Chronic (4) Degeneration of intervertebral disc of lumbosacral region Status: Chronic (5) Radiculopathy of lumbosacral region Status: Chronic (6) Morbid obesity Status: Chronic (7) ANTONIO (obstructive sleep apnea) Status: Suspected (8) Tobacco dependence syndrome Status: Chronic (9) Psoriasis Status: Chronic (10) Alcohol abuse Status: Chronic Reason for Consult Date of Consultation: 08/28/19 Reason for Consultation: Hypoxia History of Present Illness: The patient is a 39 year old M, with past medical history listed below, who pr esented to [facility] 08/27/2019 secondary to progressive shortness of breath. Patient stated that 3 days prior to presentation he started to have some congestion, rhinorrhea and a cough productive of white to green sputum. 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 Patient started to have some nausea, dry heaving and reported diarrhea's. No fevers, sore throat or hemoptysis were reported. On presentation to the ER, patient was noted to have marginal oxygenation's of 91% on room air at rest. Patient was hypertensive, but no fevers were reported. EKG was unremarkable. Chest x-ray showed no acute process. Patient was initially planned on discharge on albuterol and a prednisone burst. However, just prior to discharge, patient was noted to be hypoxic at 88%. Patient was therefore admitted to the hospital for further evaluation. While in the hospital, patient reports subjective improvement in overall condition. Patient has required up to 4 L nasal cannula with sleep. Patient denies any current chest pain, abdominal pain, nausea or vomiting. Patient denies any history of respiratory diagnoses in the past. Patient does state that he has been a smoker for quite some time and is currently using bag tobacco. Patient does report intermittent marijuana use, but denies any IV drugs. Patient is a social drinker. Patient denies any exposure to asbestos or TB. Patient does state that the carpet removed from the wall was very món[place] and reportedly had had bedbugs in the area. Patient denies needing to be hospitalized previously for his breathing. Patient reportedly has been ordered a sleep study in the past. Patient states that he is not been able to complete the study due to various reasons. Patient did state that he felt subjectively improved with using empiric BiPAP overnight. Patient states that he is always been heavyset, but has had significant weight gain since a work injury. Patient does have lower extremity edema at baseline. Review of systems otherwise negative from a constitutional, HEENT, respiratory, cardiovascular, GI, genitourinary, musculoskeletal, skin, neurologic, psychiatric and hematologic system unless stated above. Past Medical History Past Medical History (Chronic Problems): Chronic Problems HTN (hypertension) (Chronic) Chronic acquired lymphedema (Chronic) Degeneration of intervertebral disc of lumbosacral region (Chronic) Radiculopathy of lumbosacral region (Chronic) Morbid obesity (Chronic) Tobacco dependence syndrome (Chronic) Psoriasis (Chronic) Alcohol abuse (Chronic) Allergies No Known Allergies Allergy (Verified 08/27/19 01:09) Home Medications: Ambulatory Orders Medication Instructions Recorded Diclofenac [Voltaren] 50 mg PO TIDCM 08/07/16 Gabapentin [Neurontin] 600 mg PO TIDCM 08/07/16 Oxycodone [Oxyir] 15 mg PO 4X/DAY PRN PRN 08/07/16 cycloBENZAPRine HCl [Flexeril] 10 mg PO TID 08/07/16 Duloxetine Hcl [Cymbalta] 20 mg PO DAILY 12/29/17 Furosemide 80 mg PO DAILY 12/29/17 Hydrochlorothiazide 12.5 mg PO DAILY 12/29/17 Metoprolol Succinate [Toprol Xl] 25 mg PO BID 12/29/17 Loperamide [Imodium] 4 mg PO Q4H PRN PRN #30 capsule 11/21/18 Albuterol Inhaler [Ventolin Hfa] 1 - 2 puff INHALATION Q4H PRN PRN 08/27/19 #1 inhaler Dicyclomine HCl [Bentyl] 20 mg PO TIDAC 08/27/19 predniSONE tablet 60 mg PO DAILY #15 tab 08/27/19 Surgical History: no surgical history Psychiatric History: Anxiety, Depression Lives: Alone Smoking Status: Current every day smoker Tobacco Use: Cigarettes, Chew Alcohol: Occasional Drugs: None - *Family History Maternal History Items: Diabetes Paternal History Items: Diabetes, Heart Disease Review of Systems Comment: See HPI Patient Problems: Active and Suspected Problems Bronchitis (Acute) Acute respiratory failure with hypoxia (Acute) - Physical Exam Vitals/I&O's: Vital Signs Temp Pulse Resp BP Pulse Ox 36.4 C L 70 20 H 117/52 L 93 08/28/19 07:45 08/28/19 09:44 08/28/19 09:41 08/28/19 07:45 08/28/19 09:41 Oxygen Flow Rate (L/min) 6 Oxygen Delivery Method Room Air Weight: 240 kg Body Mass Index (BMI) 67.9 Intake and Output for Last 24 Hours 08/26/19 08/27/19 08/28/19 23:59 23:59 23:59 Intake Total 2439 Balance 2439 General: Alert, Oriented x3, Cooperative, No apparent distress, Well developed, Well nourished, - - Morbidly obese HEENT: Atraumatic, PERRLA, EOMI, Normocephalic, - - No scleral icterus or injection Oral: Moist Mucosa, No Gingival or Mucosal Lesions/ Ulcerations Neck: Supple, No JVD, No Nodes, Trachea Midline Lungs: No rhonchi, No rales, Diminished, Wheezes, - Cardiovascular: Regular rate, Regular Rhythm, Normal S1, Normal S2, No murmurs, No rub noted, No Gallop, - - Distant heart sounds secondary to body habitus Abdomen: Bowel Sounds Present, Soft, Non Tender, Non-Distended, Obese Extremities: No cyanosis, Clubbing, Edema Skin: No rashes, No breakdown, - - Venous stasis changes of lower extremities Musculoskeletal: No Tenderness to Palpation of Joints or Extremities, No Muscle Wasting Lymphatic: No Cervical, Supraclavicular, or Inguinal Adenopathy Neurological: Cranial nerves II-XII grossly intact, Neuro grossly intact, Motor Exam 5/5 strength throughout Psych/Mental Status: Alert and oriented to time, place, person, mood and affect Microbiology Past 72 Hours 08/27/19 06:45 Sputum, Expectorated/Coughed Gram Stain - Final 08/27/19 01:40 Mucosa - Nose Respiratory Panel (PCR) - Final Parainfluenza 4 08/27/19 01:40 Mucosa - Nasopharyngeal Influenza Types A,B Direct FA (IZAIAH) - Final Laboratory Results 08/27/19 05:45: Sodium 139, Potassium 4.1, Chloride 103, Carbon Dioxide 29.0, Anion Gap 7, BUN 15, Creatinine 0.97, Estim Creat Clear Calc 120.05, Est GFR (MDRD) Af Amer 112, Est GFR (MDRD) Non-Af 92, BUN/Creatinine Ratio 15.5, Glucose 215 H, Calcium 8.9 08/27/19 11:41: Specimen Type ART, Sample Site R Radial, pH 7.35, Bicarbonate Actual 29.5 H, POC Total CO2 31, Base Excess 4 H, O2 Saturation 93 L, ABG pCO2 53.0 H, ABG pO2 70 L, Jose Test POS, O2 Delivery Device Nasal Can, Liter Flow 2.0, Blood Gas Notified Whom HOSP , Blood Gas Notified Time 1130 Clinical Impression(s) from Imaging Studies Chest X-Ray 08/27/19 02:30 IMPRESSION: No acute cardiopulmonary disease, stable study in the interval. Electronically Signed: Maria A Tomlinson MD at 2:42 EST , Service support , Current Medications Acetaminophen (Tylenol) 650 mg PO Q6H PRN PRN PRN Reason: Non-cardiac pain (mod-severe) Al Hydroxide/Mg Hydroxide (Mylanta Ii) 15 - 30 ml PO Q4H PRN PRN PRN Reason: INDIGESTION Albuterol Sulfate (Ventolin Aerosols) 2.5 mg INHALATION Q2H PRN PRN PRN Reason: dyspnea, wheezing Albuterol/Ipratropium (Duoneb) 3 ml INHALATION Q4HWA.RT REPLACED BY [facility] Last Admin: 08/28/19 10:42 Dose: 3 ml Documented by: Cyclobenzaprine HCl (Flexeril) 10 mg PO TID REPLACED BY [facility] Last Admin: 08/28/19 06:37 Dose: 10 mg Documented by: Dextrose (D50w Syringe) 0 gm IV X1 PRN; Protocol PRN Reason: Hypoglycemia Diclofenac Sodium (Voltaren) 50 mg PO TIDCM REPLACED BY [facility] Last Admin: 08/28/19 09:44 Dose: 50 mg Documented by: Dicyclomine HCl (Bentyl) 20 mg PO TIDAC REPLACED BY [facility] Last Admin: 08/28/19 06:36 Dose: 20 mg Documented by: Duloxetine HCl (Cymbalta) 20 mg PO DAILY REPLACED BY [facility] Last Admin: 08/27/19 11:00 Dose: 20 mg Documented by: Enoxaparin Sodium (Lovenox) 40 mg SC BID REPLACED BY [facility] Last Admin: 08/28/19 09:45 Dose: 40 mg Documented by: Furosemide (Lasix) 80 mg PO DAILY REPLACED BY [facility] Last Admin: 08/28/19 09:44 Dose: 80 mg Documented by: Gabapentin (Neurontin) 600 mg PO TIDCM REPLACED BY [facility] Last Admin: 08/28/19 09:44 Dose: 600 mg Documented by: Glucagon () 1 mg IM .X1 PRN PRN Reason: Hypoglycemia Guaifenesin (Robitussin) 20 ml PO Q4H PRN PRN PRN Reason: COUGH Last Admin: 08/27/19 16:00 Dose: 20 ml Documented by: Hydralazine HCl (Apresoline Iv) 10 mg IV Q4H PRN PRN PRN Reason: SBP > 160 Sodium Chloride () 250 mls @ 15 mls/hr IV .[id number] PRN PRN Reason: Saline Flush Loperamide HCl (Imodium) 4 mg PO Q4H PRN PRN PRN Reason: Diarrhea Magnesium Hydroxide (Milk Of Magnesia) 30 ml PO DAILY PRN PRN Reason: Constipation Melatonin (Melatonin) 3 mg PO QHS PRN PRN PRN Reason: INSOMNIA Methylprednisolone (Solu-Medrol) 40 mg IV Q8 REPLACED BY [facility] Last Admin: 08/28/19 06:37 Dose: 40 mg Documented by: Metoprolol Succinate (Toprol Xl (Beta Ksenia)) 25 mg PO BID REPLACED BY [facility] Last Admin: 08/28/19 09:44 Dose: 25 mg Documented by: Nicotine (Nicoderm Cq ([facility])) 21 mg TRANSDERM. DAILY REPLACED BY [facility] Last Admin: 08/28/19 09:45 Dose: Not Given Documented by: Nicotine Polacrilex (Rugby Nicotine (Pbkc)) 4 mg PO Q2H PRN PRN PRN Reason: Nicotine Craving Nystatin (Mycostatin Powder) 1 applic TOPICAL TID REPLACED BY [facility]; Protocol Last Admin: 08/28/19 06:37 Dose: 1 applicatio Documented by: Ondansetron HCl (Zofran) 4 mg IV Q8H PRN PRN PRN Reason: NAUSEA/VOMITING Oxycodone HCl (Oxyir) 15 mg PO 4X/DAY PRN PRN PRN Reason: Pain Score 1-10/10 Last Admin: 08/28/19 02:25 Dose: 15 mg Documented by: Sodium Chloride () 10 - 40 ml IV UD PRN PRN Reason: SALINE FLUSH Last Admin: 08/27/19 22:30 Dose: 10 ml Documented by: Throat Lozenges (Cepacol Sore Throat Lozenge) 1 lozenge MUCOUS MEM Q2H PRN PRN PRN Reason: Sore throat or cough Assessment/Plan All Active Problems Bronchitis (Acute) Acute respiratory failure with hypoxia (Acute) Cellulitis (Resolved) Influenza A (Acute) RECOMMENDATIONS: 1. Likely okay to transition to p.o. prednisone and complete a 5-day burst 2. Walking oximetry prior to discharge 3. Okay to discharge if required 6 L or less nasal cannula oxygen with exertion 4. Outpatient follow-up with nurse practitioner 5. Outpatient sleep study, complete PFT and walking oximetry IMPRESSIONS: 1. Acute hypoxic respiratory insufficiency secondary to parainfluenza virus Patient is positive for parainfluenza virus. However, this is unlikely to cause hypoxia without some concurrent pulmonary pathology. Patient does have findings on ABG consistent with obesity hypoventilation syndrome, but also has narcotics on board. Other possible etiologies would include asthma, COPD and pulmonary hypertension. Patient should have a walking oximetry prior to discharge to ensure exertional hypoxemia is addressed. Patient would benefit from outpatient polysomnogram for initiation of BiPAP therapy. Remainder of the work-up can be completed as an outpatient from my perspective. Would treat p atient with a 5-day burst of prednisone therapy given wheezing on exam and high clinical suspicion for obstructive lung disease. Patient with very poor insight into his overall disease process. Lymphedema likely secondary to pulmonary hypertension. Unfortunately, patient may require a right heart catheterization given his body habitus to quantify pulmonary artery pressures. 2. Chronic pain syndrome/morbid obesity/psoriasis/history of tobacco abuse/hypertension Complicates care, management, recovery and prognosis. Patient does require narcotics at baseline for pain control. This could be leading to some of the CO2 retention. Okay to continue with baseline diuretic therapy and blood pressure control from my perspective. Code Visit Inpatient E&M: 59124 Init Hosp L3
[2019-08-28] MEDS: DULoxetine Hcl 20 MG Capsule PO (11:05)
--- NOTE | 2019-08-28 11:12 | CASEMGMT ---
JANEEN CM Assessment Presentation: Bronchitis, Hypoxia Intro role of CM to patient in room. Pt is awake, alert and able to participate in assessment. Pt is ambulatory in room, no oxygen use @ this time. Assessment completed, but did not elaborate as pt had coughing episodes when trying to speak. PCP: Livan Specialists: Dr. Powell Preferred Pharmacy: [email or web address] Insurance: [employer] Prescription Benefit: Yes Living Will/HPOA: None LNOK: Mother Living Arrangements: Patient lives alone in mobile home with 9 steps to enter the home with railing. Patient states he is independent at home. No care needs identified. Transportation: mother or receives rides through [employer]. Pt does not have license. DME: cane Denies oxygen, cpap, bipap, or nebulizer at home. HHC/SNF: denies Pt plan on dc: Home DC Plan: anticipate home on dc. Jourdan DEGROOT RN ACM
--- NOTE | 2019-08-28 15:41 | PCM.PN.HOSP ---
Patient Problems: Active and Suspected Problems Bronchitis (Acute) Acute respiratory failure with hypoxia (Acute) Subjective: Follow-up on acute parainfluenza bronchitis: Patient was seen examined. Feels short of breath with exertion. Denied any chest pain or dizziness. Respiratory panel was positive for parainfluenza. Denies any fever or chills. Vitals/I&O's: Vital Signs Temp Pulse Resp BP Pulse Ox 98.3 F 70 20 H 127/68 H 95 08/28/19 15:00 08/28/19 15:00 08/28/19 15:00 08/28/19 15:00 08/28/19 15:00 Oxygen Flow Rate (L/min) [ 3 AMBULATION with Oxygen] Oxygen Flow Rate (L/min) 2 Oxygen Delivery Method Nasal Cannula Weight: 240 kg Body Mass Index (BMI) 67.9 Intake and Output for Last 24 Hours 08/26/19 08/27/19 08/28/19 23:59 23:59 23:59 Intake Total 2050. / 3650. 2920 / 2920 Balance / 2920 / 2920 General: Alert, Oriented x3, Cooperative, - - in mild respiratory distress, super super morbid obesity HEENT: Atraumatic, PERRLA, EOMI, Normocephalic Oral: Moist Mucosa Neck: Supple Lungs: Diminished, Wheezes - ++ Cardiovascular: Regular rate, Regular Rhythm, Normal S1, Normal S2, No murmurs Abdomen: Bowel Sounds Present, Soft, Non Tender, Non-Distended, No Hepato-splenomegaly Extremities: No edema Skin: No rashes, No breakdown Musculoskeletal: No Tenderness to Palpation of Joints or Extremities Lymphatic: No Cervical, Supraclavicular, or Inguinal Adenopathy Neurological: Cranial nerves II-XII grossly intact, Neuro grossly intact Psych/Mental Status: Normal Affect, Appropriate Microbiology Past 72 Hours 08/27/19 06:45 Sputum, Expectorated/Coughed Gram Stain - Final 08/27/19 06:45 Sputum, Expectorated/Coughed Respiratory Culture - Preliminary Appears to be normal respiratory haily. Further studies to follow. 08/27/19 01:40 Mucosa - Nose Respiratory Panel (PCR) - Final Parainfluenza 4 08/27/19 01:40 Mucosa - Nasopharyngeal Influenza Types A,B Direct FA (IZAIAH) - Final Current Medications Acetaminophen (Tylenol) 650 mg PO Q6H PRN PRN PRN Reason: Non-cardiac pain (mod-severe) Al Hydroxide/Mg Hydroxide (Mylanta Ii) 15 - 30 ml PO Q4H PRN PRN PRN Reason: INDIGESTION Albuterol Sulfate (Ventolin Aerosols) 2.5 mg INHALATION Q2H PRN PRN PRN Reason: dyspnea, wheezing Albuterol/Ipratropium (Duoneb) 3 ml INHALATION Q4HWA.RT [facility] Last Admin: 08/28/19 15:13 Dose: 3 ml Documented by: Cyclobenzaprine HCl (Flexeril) 10 mg PO TID [facility] Last Admin: 08/28/19 13:21 Dose: 10 mg Documented by: Dextrose (D50w Syringe) 0 gm IV X1 PRN; Protocol PRN Reason: Hypoglycemia Diclofenac Sodium (Voltaren) 50 mg PO TIDCM [facility] Last Admin: 08/28/19 12:29 Dose: 50 mg Documented by: Dicyclomine HCl (Bentyl) 20 mg PO TIDAC [facility] Last Admin: 08/28/19 15:11 Dose: 20 mg Documented by: Duloxetine HCl (Cymbalta) 20 mg PO DAILY [facility] Last Admin: 08/28/19 11:05 Dose: 20 mg Documented by: Enoxaparin Sodium (Lovenox) 40 mg SC BID [facility] Last Admin: 08/28/19 09:45 Dose: 40 mg Documented by: Furosemide (Lasix) 80 mg PO DAILY [facility] Last Admin: 08/28/19 09:44 Dose: 80 mg Documented by: Gabapentin (Neurontin) 600 mg PO TIDCM [facility] Last Admin: 08/28/19 12:29 Dose: 600 mg Documented by: Glucagon () 1 mg IM .X1 PRN PRN Reason: Hypoglycemia Guaifenesin (Robitussin) 20 ml PO Q4H PRN PRN PRN Reason: COUGH Last Admin: 08/27/19 16:00 Dose: 20 ml Documented by: Hydralazine HCl (Apresoline Iv) 10 mg IV Q4H PRN PRN PRN Reason: SBP > 160 Sodium Chloride () 250 mls @ 15 mls/hr IV .[id number] PRN PRN Reason: Saline Flush Loperamide HCl (Imodium) 4 mg PO Q4H PRN PRN PRN Reason: Diarrhea Magnesium Hydroxide (Milk Of Magnesia) 30 ml PO DAILY PRN PRN Reason: Constipation Melatonin (Melatonin) 3 mg PO QHS PRN PRN PRN Reason: INSOMNIA Methylprednisolone (Solu-Medrol) 40 mg IV Q8 [facility] Last Admin: 08/28/19 13:21 Dose: 40 mg Documented by: Metoprolol Succinate (Toprol Xl (Beta Ksenia)) 25 mg PO BID [facility] Last Admin: 08/28/19 09:44 Dose: 25 mg Documented by: Nicotine (Nicoderm Cq ([facility])) 21 mg TRANSDERM. DAILY [facility] Last Admin: 08/28/19 09:45 Dose: Not Given Documented by: Nicotine Polacrilex (Rugby Nicotine ([facility])) 4 mg PO Q2H PRN PRN PRN Reason: Nicotine Craving Nystatin (Mycostatin Powder) 1 applic TOPICAL TID [facility]; Protocol Last Admin: 08/28/19 13:20 Dose: Not Given Documented by: Ondansetron HCl (Zofran) 4 mg IV Q8H PRN PRN PRN Reason: NAUSEA/VOMITING Oxycodone HCl (Oxyir) 15 mg PO 4X/DAY PRN PRN PRN Reason: Pain Score 1-10/10 Last Admin: 08/28/19 02:25 Dose: 15 mg Documented by: Sodium Chloride () 10 - 40 ml IV UD PRN PRN Reason: SALINE FLUSH Last Admin: 08/27/19 22:30 Dose: 10 ml Documented by: Throat Lozenges (Cepacol Sore Throat Lozenge) 1 lozenge MUCOUS MEM Q2H PRN PRN PRN Reason: Sore throat or cough STROKE Vital Signs/Narrative: Vital Signs Temp Pulse Resp BP Pulse Ox Pulse Ox Pulse Ox 08/28/19 15:00 98.3 F 70 20 H 127/68 H 95 08/28/19 14:30 86 91 08/28/19 14:29 86 08/28/19 12:50 85 Pulse Ox 08/28/19 15:00 08/28/19 14:30 90 08/28/19 14:29 08/28/19 12:50 Medical Necessity - Tobacco Use Smoking Status: Current every day smoker Tobacco Use: Cigarettes, Chew Assessment/Plan All Active Problems Bronchitis (Acute) Acute respiratory failure with hypoxia (Acute) Cellulitis (Resolved) Influenza A (Acute) 1. Acute hypoxic respiratory insufficiency secondary to acute parainfluenza 1 bronchitis/obesity hypoventilation syndrome Patient is on 2 liters of oxygen Continue to wean off oxygen 2. Acute parainfluenza 1 bronchitis, continue on IV Solu-Medrol, breathing treatments Switch to oral steroids in am 3. Obesity hypoventilation syndrome/ super morbid obesity, weight loss recommended Patient needs to be referred for bariatric surgery Will follow with pulmonology in the outpatient for sleep study 4. Hypertension, controlled, continue home regimen 5. Anxiety/depression, continue home regimen 6. Chronic back pain with radiculopathy/chronic pain syndrome, continue home regimen 7. Nicotine dependence, strongly advised to quit especially as he will be discharged with oxygen On nicotine replacement 8. DVT PPx- Lovenox SC Code Visit Inpatient E&M: 23783 Subs Hosp L2
[2019-08-28] MEDS: 0.9% Saline Lock 10 ML Syringe IV (22:38)
[2019-08-29] VITALS (11 sets, daily range): BP systolic 143–153; BP diastolic 71–72; PULSE 57–81; RESP 12–20; TEMP 36.4–36.6; O2SAT 87–98
[2019-08-29] MEDS: cycloBENZAPRine HCl 10 MG Tablet PO ×2 (06:10→12:09)
[2019-08-29] MEDS: Dicyclomine 10 MG Capsule 20 MG PO ×3 (06:10→14:46)
[2019-08-29] MEDS: Nystatin Powder 15gm Bottle 1 APPLIC TOPICAL ×2 (06:11→14:45)
[2019-08-29] MEDS: 0.9% Saline Lock 10 ML Syringe IV ×2 (06:11→14:47)
[2019-08-29] MEDS: oxyCODONE 5 MG Tablet 15 MG PO ×2 (06:19→12:11)
[2019-08-29] MEDS: Ipratropium/Albuterol Sulfate 3 ML AMPUL.NEB INHALATION ×3 (07:21→14:34)
--- NOTE | 2019-08-29 07:52 | PCM.DC ---
- Discharge Diagnoses Current Active Problems: Current Active and Chronic Problems Bronchitis (Acute) Acute respiratory failure with hypoxia (Acute) HTN (hypertension) (Chronic) Chronic acquired lymphedema (Chronic) Reason(s) for Visit for Discharge Instructions: Shortness of breath You will use the following diet at home:: Cardiac Your food should be the consistency of: Regular Your liquids should be the consistency of: Regular/Thin Discharge Activity: Return to Normal Activity Instructions: BRONCHITIS with Wheezing (Adult) Allergies/Adverse Reactions: Allergies No Known Allergies Allergy (Verified 08/27/19 01:09) Medications to take at Discharge Gabapentin [Neurontin] 600 mg PO TIDCM 08/07/16 Oxycodone [Oxyir] 15 mg PO 4X/DAY PRN PRN 08/07/16 cycloBENZAPRine HCl [Flexeril] 10 mg PO TID 08/07/16 Duloxetine Hcl [Cymbalta] 20 mg PO DAILY 12/29/17 Furosemide 80 mg PO DAILY 12/29/17 Metoprolol Succinate [Toprol Xl] 25 mg PO BID 12/29/17 Loperamide [Imodium] 4 mg PO Q4H PRN PRN #30 capsule 11/21/18 Albuterol Inhaler [Ventolin Hfa] 1 - 2 puff INHALATION Q4H PRN PRN #1 inhaler 08/27/19 Dicyclomine HCl [Bentyl] 20 mg PO TIDAC 08/27/19 predniSONE tablet 60 mg PO DAILY #15 tab 08/27/19 Nicotine Polacrilex [Nicotine Gum] 4 mg PO Q2H PRN PRN #60 gum 08/29/19 Nicotine [Nicoderm Cq] 21 mg TRANSDERM. DAILY #30 patch 08/29/19 Nystatin Powder [Mycostatin Powder] 1 applic TOPICAL TID #1 bottle 08/29/19 The following prescriptions were given: Nystatin Powder [Mycostatin Powder] 1 applic TOPICAL TID #1 bottle Transmission Status: Pending to [facility] Nicotine [Nicoderm Cq] 21 mg TRANSDERM. DAILY #30 patch Transmission Status: Pending to [facility] Nicotine Polacrilex [Nicotine Gum] 4 mg PO Q2H PRN PRN #60 gum PRN Reason: Nicotine Craving Transmission Status: Pending to [facility] predniSONE tablet 60 mg PO DAILY #15 tab Prescription Printed Albuterol Inhaler [Ventolin Hfa] 1 - 2 puff INHALATION Q4H PRN PRN #1 inhaler PRN Reason: Wheezing Prescription Printed Primary Care Physician: Luci Licona DO [Primary Care Provider] - Please follow up with your Primary Care Physician in: within 1-2 weeks Test Results: Test results from this visit will be discussed in further detail at your follow-up appointment, if applicable. Please Follow Up With: Miguel Powell MD When: within 1-2 weeks Proposed Discharge Date: 08/29/19
--- NOTE | 2019-08-29 07:56 | DS.PCM_ITS ---
Discharge Date and Diagnosis Date of Admission: 08/27/19 Date of Discharge: 08/29/19 - Primary Discharge Diagnosis Active and Suspected Problems Acute Parainfluenza 1 Bronchitis Acute respiratory failure with hypoxia (Acute) Obesity hypoventilation syndrome - Secondary Discharge Diagnosis Chronic Problems HTN (hypertension) (Chronic) Chronic acquired lymphedema (Chronic) Degeneration of intervertebral disc of lumbosacral region (Chronic) Radiculopathy of lumbosacral region (Chronic) Morbid obesity (Chronic) Tobacco dependence syndrome (Chronic) Psoriasis (Chronic) Alcohol abuse (Chronic) Hospital Course and Treatment Imaging Results: Clinical Impression(s) from Imaging Studies Chest X-Ray 08/27/19 02:30 IMPRESSION: No acute cardiopulmonary disease, stable study in the interval. Electronically Signed: Maria A Tomlinson MD at 2:42 EST , Service support , Pulmonology Operations: None Procedures: None Summary of Care Provided: The patient is a 39 year old M with past medical history of super morbid obesity, nicotine dependence, suspected ANTONIO, psoriasis, chronic back pain with radiculopathy, anxiety/depression who presented with 1 week history of progressive fatigue and progressive shortness of breath associated with congesti on and rhinorrhea. Patient had complained of chest tightness and wheezing with dyspnea on minimal exertion. His vitals in the ED with stable except for hypoxia of 88% on room air. Patient is admitting blood work was negative. Rapid influenza was negative. His respiratory panel was positive for parainfluenza 1. His chest x-ray showed no acute cardiopulmonary process. Patient was admitted to the [facility] floor and started on breathing treatments, IV steroids with improvement. Pulmonology was consulted for possible obesity hypoventilation syndrome. Patient did for home oxygen. He was discharged on a short course of p.o. steroids, given an inhaler and he was advised to not smoke while is on oxygen. He will follow-up with pulmonology in the outpatient. Subjective: On the day of discharge, patient was seen and examined. Denied any new complaints. He felt much improved. Objective: Physical exam: General: Alert, Oriented x3, Cooperative, super super morbid obesity HEENT: Atraumatic, PERRLA, EOMI, Normocephalic Oral: Moist Mucosa Neck: Supple Lungs: Diminished, Wheezes - ++ Cardiovascular: Regular rate, Regular Rhythm, Normal S1, Normal S2, No murmurs Abdomen: Bowel Sounds Present, Soft, Non Tender, Non-Distended, No Hepato- splenomegaly Extremities: No edema Skin: No rashes, No breakdown Musculoskeletal: No Tenderness to Palpation of Joints or Extremities Lymphatic: No Cervical, Supraclavicular, or Inguinal Adenopathy Neurological: Cranial nerves II-XII grossly intact, Neuro grossly intact Psych/Mental Status: Normal Affect, Appropriate - Physical Exam Vitals/I&O's: Vital Signs Temp Pulse Resp BP Pulse Ox 97.8 F 76 20 H 143/72 H 98 08/29/19 02:15 08/29/19 07:23 08/29/19 07:23 08/29/19 02:15 08/29/19 02:15 Oxygen Flow Rate (L/min) [ 3 AMBULATION with Oxygen] Oxygen Flow Rate (L/min) 2 Oxygen Delivery Method Bi-pap Weight: 240 kg Body Mass Index (BMI) 67.9 Intake and Output for Last 24 Hours 08/27/19 08/28/19 08/29/19 23:59 23:59 23:59 Intake Total 2051.67 / 3651.67 3400 / 4000 1100 / 1100 Balance 2051.67 / 3651.67 3400 / 4000 1100 / 1100 Microbiology Past 72 Hours 08/27/19 06:45 Sputum, Expectorated/Coughed Gram Stain - Final 08/27/19 06:45 Sputum, Expectorated/Coughed Respiratory Culture - Preliminary Appears to be normal respiratory haily. Further studies to follow. 08/27/19 01:40 Mucosa - Nose Respiratory Panel (PCR) - Final Parainfluenza 4 08/27/19 01:40 Mucosa - Nasopharyngeal Influenza Types A,B Direct FA (IZAIAH) - Final Current Medications Acetaminophen (Tylenol) 650 mg PO Q6H PRN PRN PRN Reason: Non-cardiac pain (mod-severe) Al Hydroxide/Mg Hydroxide (Mylanta Ii) 15 - 30 ml PO Q4H PRN PRN PRN Reason: INDIGESTION Albuterol Sulfate (Ventolin Aerosols) 2.5 mg INHALATION Q2H PRN PRN PRN Reason: dyspnea, wheezing Albuterol/Ipratropium (Duoneb) 3 ml INHALATION Q4HWA.RT [facility] Last Admin: 08/29/19 07:21 Dose: 3 ml Documented by: Cyclobenzaprine HCl (Flexeril) 10 mg PO TID [facility] Last Admin: 08/29/19 06:10 Dose: 10 mg Documented by: Dextrose (D50w Syringe) 0 gm IV X1 PRN; Protocol PRN Reason: Hypoglycemia Diclofenac Sodium (Voltaren) 50 mg PO TIDCM [facility] Last Admin: 08/28/19 17:20 Dose: 50 mg Documented by: Dicyclomine HCl (Bentyl) 20 mg PO TIDAC [facility] Last Admin: 08/29/19 06:10 Dose: 20 mg Documented by: Duloxetine HCl (Cymbalta) 20 mg PO DAILY [facility] Last Admin: 08/28/19 11:05 Dose: 20 mg Documented by: Enoxaparin Sodium (Lovenox) 40 mg SC BID [facility] Last Admin: 08/28/19 22:37 Dose: 40 mg Documented by: Furosemide (Lasix) 80 mg PO DAILY [facility] Last Admin: 08/28/19 09:44 Dose: 80 mg Documented by: Gabapentin (Neurontin) 600 mg PO TIDCM [facility] Last Admin: 08/28/19 17:21 Dose: 600 mg Documented by: Glucagon () 1 mg IM .X1 PRN PRN Reason: Hypoglycemia Guaifenesin (Robitussin) 20 ml PO Q4H PRN PRN PRN Reason: COUGH Last Admin: 08/27/19 16:00 Dose: 20 ml Documented by: Hydralazine HCl (Apresoline Iv) 10 mg IV Q4H PRN PRN PRN Reason: SBP > 160 Sodium Chloride () 250 mls @ 15 mls/hr IV .[id number] PRN PRN Reason: Saline Flush Loperamide HCl (Imodium) 4 mg PO Q4H PRN PRN PRN Reason: Diarrhea Magnesium Hydroxide (Milk Of Magnesia) 30 ml PO DAILY PRN PRN Reason: Constipation Melatonin (Melatonin) 3 mg PO QHS PRN PRN PRN Reason: INSOMNIA Methylprednisolone (Solu-Medrol) 40 mg IV Q8 [facility] Last Admin: 08/29/19 06:10 Dose: 40 mg Documented by: Metoprolol Succinate (Toprol Xl (Beta Ksenia)) 25 mg PO BID [facility] Last Admin: 08/28/19 22:37 Dose: 25 mg Documented by: Nicotine (Nicoderm Cq ([facility])) 21 mg TRANSDERM. DAILY ANTHONY Last Admin: 08/28/19 09:45 Dose: Not Given Documented by: Nicotine Polacrilex (Rugby Nicotine ([facility])) 4 mg PO Q2H PRN PRN PRN Reason: Nicotine Craving Last Admin: 08/28/19 17:23 Dose: 4 mg Documented by: Nystatin (Mycostatin Powder) 1 applic TOPICAL TID ANTHONY; Protocol Last Admin: 08/29/19 06:11 Dose: 1 applicatio Documented by: Ondansetron HCl (Zofran) 4 mg IV Q8H PRN PRN PRN Reason: NAUSEA/VOMITING Oxycodone HCl (Oxyir) 15 mg PO 4X/DAY PRN PRN PRN Reason: Pain Score 1-10/10 Last Admin: 08/29/19 06:19 Dose: 15 mg Documented by: Sodium Chloride () 10 - 40 ml IV UD PRN PRN Reason: SALINE FLUSH Last Admin: 08/29/19 06:11 Dose: 10 ml Documented by: Throat Lozenges (Cepacol Sore Throat Lozenge) 1 lozenge MUCOUS MEM Q2H PRN PRN PRN Reason: Sore throat or cough Discharge Diet: Low fat/ Low Cholesterol, 2000 mg Sodium Diet Discharge Activity: Return to Normal Activity Home Medications: Medications to take at Discharge Gabapentin [Neurontin] 600 mg PO TIDCM 08/07/16 Oxycodone [Oxyir] 15 mg PO 4X/DAY PRN PRN 08/07/16 cycloBENZAPRine HCl [Flexeril] 10 mg PO TID 08/07/16 Duloxetine Hcl [Cymbalta] 20 mg PO DAILY 12/29/17 Furosemide 80 mg PO DAILY 12/29/17 Metoprolol Succinate [Toprol Xl] 25 mg PO BID 12/29/17 Loperamide [Imodium] 4 mg PO Q4H PRN PRN #30 capsule 11/21/18 Albuterol Inhaler [Ventolin Hfa] 1 - 2 puff INHALATION Q4H PRN PRN #1 inhaler 08/27/19 Dicyclomine HCl [Bentyl] 20 mg PO TIDAC 08/27/19 predniSONE tablet 60 mg PO DAILY #15 tab 08/27/19 Nicotine Polacrilex [Nicotine Gum] 4 mg PO Q2H PRN PRN #60 gum 08/29/19 Nicotine [Nicoderm Cq] 21 mg TRANSDERM. DAILY #30 patch 08/29/19 Nystatin Powder [Mycostatin Powder] 1 applic TOPICAL TID #1 bottle 08/29/19 Following Prescrptions Were Given to Patient: Nystatin Powder [Mycostatin Powder] 1 applic TOPICAL TID #1 bottle Transmission Status: Received by [facility] Nicotine [Nicoderm Cq] 21 mg TRANSDERM. DAILY #30 patch Transmission Status: Received by [facility] Nicotine Polacrilex [Nicotine Gum] 4 mg PO Q2H PRN PRN #60 gum PRN Reason: Nicotine Craving Transmission Status: Received by [facility] predniSONE tablet 60 mg PO DAILY #15 tab Transmission Status: Received by [facility] Albuterol Inhaler [Ventolin Hfa] 1 - 2 puff INHALATION Q4H PRN PRN #1 inhaler PRN Reason: Wheezing Transmission Status: Received by [facility] Primary Care Physician: Luci Licona DO [Primary Care Provider] - Please follow up with your Primary Care Physician in: within 1-2 weeks Please Follow Up With: Miguel Powell MD When: within 1-2 weeks Patient Instructions: BRONCHITIS with Wheezing (Adult) Disposition: Home Minutes spent on discharge:: 40 Patient Condition:: Stable Medical Necessity - Tobacco Use Smoking Status: Current every day smoker Tobacco Use: Cigarettes, Chew Meaningful Use Info Meaningful Use Diagnoses (Choose all that apply): None applicable Code Visit Inpatient E&M: 88828 Subs Hosp L2
[2019-08-29] MEDS: Enoxaparin 40 MG/0.4 ML Syringe SC (09:27)
[2019-08-29] MEDS: DULoxetine Hcl 20 MG Capsule PO (09:28)
[2019-08-29] MEDS: Gabapentin 600 MG Tablet PO ×2 (09:28→12:08)
[2019-08-29] MEDS: Furosemide 80 MG Tablet PO (09:28)
[2019-08-29] MEDS: Metoprolol(XL)Succ 25 MG Tablet PO (09:28)
[2019-08-29] MEDS: Acetaminophen 325 MG Tablet 650 MG PO (09:31)
--- NOTE | 2019-08-29 10:35 | CASEMGMT ---
RN LEONA received updated that patient qualifies for home oxygen at discharge. RN LEONA received script. RN LEONA in to provided patient with list of DME. Patient prefers [employer]. RN LEONA sent referral to [employer] and arranged for portable oxygen be delivered to patient's room prior to discharge.
== END 2019-08-29 14:52 | disposition home or self-care (01) | DRG 144 ==
LOC: ED 03:09 → MS3 04:00
PROVIDERS: Admitting Provider Family Medicine; Emergency Provider Emergency Medicine; Family Provider Family Medicine; PCP Family Medicine; Referring Provider Family Medicine; Visit Provider Internal Medicine
DX: J20.4 Acute bronchitis due to parainfluenza virus (principal); I10 Essential (primary) hypertension; E66.2 Morbid (severe) obesity with alveolar hypoventilation; Z68.44 Body mass index [BMI] 60.0-69.9, adult; J96.01 Acute respiratory failure with hypoxia; L40.9 Psoriasis, unspecified; F10.10 Alcohol abuse, uncomplicated; I89.0 Lymphedema, not elsewhere classified; M51.17 Intervertebral disc disorders with radiculopathy, lumbosacral region; F17.210 Nicotine dependence, cigarettes, uncomplicated; F41.9 Anxiety disorder, unspecified; F32.9 Major depressive disorder, single episode, unspecified; Z23 Encounter for immunization
CPT/HCPCS: 36415; 36600; 71046; 80048; 82803; 83036; 84484; 85025; 87070; 87205; 87633; 87804; 93005; 93306; 94002; 94003; 94640; 97802; 99251; 99285; 99406; J7030; Q9957; 90686; A4216; C8929; G0463

== ENCOUNTER → 2019-09-25 20:15 | Outpatient (CLI) | payer MEDICAID, SELFPAY ==
[2019-08-27 04:27] VITALS: BMI 67.9
== END ==
PROVIDERS: Family Provider Family Medicine; PCP Family Medicine; Referring Provider Family Medicine; Visit Provider Family Medicine
DX: G47.10 Hypersomnia, unspecified (principal); E66.2 Morbid (severe) obesity with alveolar hypoventilation
CPT/HCPCS: 95811

== ENCOUNTER → 2019-10-16 10:54 | Outpatient (CLI) | payer MEDICAID, SELFPAY ==
[2019-08-27 04:27] VITALS: BMI 67.9
== END ==
PROVIDERS: Family Provider Family Medicine; PCP Family Medicine; Referring Provider Family Medicine; Visit Provider Family Medicine
DX: Z00.00 Encounter for general adult medical examination without abnormal findings (principal)

== ENCOUNTER 2019-11-02 08:27 | Emergency (ER) | payer MEDICAID, SELFPAY ==
[2019-08-27 04:27] VITALS: BMI 67.9
[2019-11-02 08:28] VITALS: BP 151/72; PULSE 95; RESP 20; TEMP 36.3; O2SAT 97; BMI 69.7
--- NOTE | 2019-11-02 08:48 | RAD_ITS ---
STUDY: X-RAY CHEST REASON FOR EXAM: Male, 39 years old. PT STATES HE STARTED WITH LEG SWELLING ABOUT 2 WEEKS AGO, CELLULITIS TO ABD ON WEDNESDAY, WAS IN THE SHOWER YESTERDAY AND TWISTED HIS BACK TECHNIQUE: PA and lateral views of the chest. COMPARISON: Comparison is made with prior study dated August 27, 2019. FINDINGS: The lungs are clear and expanded. There is no demonstrated pleural abnormality. Normal size heart. Normal mediastinum and radha. Normal visualized pulmonary arteries. Normal visualized aortic arch and descending thoracic aorta. There are degenerative changes of the visualized thoracic spine. Normal visualized ribs, clavicles, and shoulders. There is no demonstrated abnormality of the visualized soft tissue structures of the upper abdomen. RAD/Chest PA and Lateral IMPRESSION: Normal x-ray examination of the chest. Electronically Signed: Chava Gil, at 9:52 EST , Service support ,
--- NOTE | 2019-11-02 08:48 | EKG12_ITS ---
Test Reason : CELLULITIS Blood Pressure : / mmHG Vent. Rate : 081 BPM Atrial Rate : 081 BPM P-R Int : 182 ms QRS Dur : 110 ms QT Int : 412 ms P-R-T Axes : 039 052 037 degrees QTc Int : 478 ms Normal sinus rhythm Incomplete right bundle branch block Borderline ECG Confirmed by MAGNO RETANA, JESSE ([id number]), photograph editor ARA BRADSHAW ([id number]) on 11/07/2019 7:57:20 AM Referred By: MARNIE/KATIANA Confirmed By:JESSE KIRAN MD
--- NOTE | 2019-11-02 08:49 | ED.VIS.GEN ---
History of Present Illness Chief Complaint: Cellulitis Informant: Patient Onset: Weeks Context: Gradual Onset Timing: Continuous Narrative: Patient is a 39-year-old male with history of morbid obesity, obstructive sleep apnea, 2 L O2 dependency, psoriasis, lymphedema and chronic back pain presenting with multiple complaints. Patient notes over the past 2 weeks has had worsening lower extremity edema and for the past week and a half worsening dyspnea on exertion. He states his been feeling more short of breath. He still wearing his 2 L of baseline oxygen. He denies any associated chest pain. He denies any cough. He states he feels that his feet are swollen he is actually wearing a size 14 shoe instead of a size 13 because of the swelling. He has swelling from his feet to his knees. Last night he started to feel unwell, hot and nauseous. He is developed redness on his abdomen is concerned he has cellulitis of his abdominal wall. He does have a history of this and he states it normally happens when he gets too much fluid on him. In addition patient is having acute on chronic low back pain. He states he was stepping out of the shower yesterday when his leg slipped and he twisted funny to catch his balance. This caused an acute exacerbation of his pain. He has pain in his bilateral lower back. Does not radiate. He is on chronically on gabapentin and oxycodone. He is also been using his TENS unit. He denies any bowel or bladder incontinence. He denies any change with his urination. He denies any other GI symptoms. He denies any history of blood clots, pulmonary lungs or DVT. Past Medical History - Allergies and Home Meds Allergies/Adverse Reactions: Allergies No Known Allergies Allergy (Verified 11/02/19 08:28) Primary Care Physician: Luci Licona DO [Primary Care Provider] - Past Medical History: - - Lymphedema, morbid obesity, struct of sleep apnea, psoriasis, hypertension, chronic back pain, history of alcohol abuse chronic hypoxic respiratory failure Surgical History: no surgical history Smoking Status: Current every day smoker Alcohol: Sober - Family History Paternal Family History: Reports: Diabetes, Heart Disease Maternal Family History: Reports: Diabetes Review of Systems General: Reports: Chills. Denies: Fever, Sweats Eyes: Denies: Visual changes - bilaterally, Diplopia ENT: Denies: Rhinorrhea, Sore throat Cardiovascular: Denies: Chest pain, Palpitations Respiratory: Reports: Dyspnea, Dyspnea on exertion. Denies: Cough Gastrointestinal: Reports: Nausea. Denies: Abdominal pain, Vomiting, Diarrhea, Melena, Hematochezia Genitourinary: Denies: Dysuria, Hematuria, Frequency Musculoskeletal: Reports: Back pain, Swelling. Denies: Extremity Pain Skin: Reports: Rash - Abdominal wall, lower. Denies: Wounds Neurological: Denies: Headache, Weakness, Numbness Physical Exam Vital Signs/Narrative: Vital Signs Temp Pulse Resp BP Pulse Ox 11/02/19 08:28 97.3 F L 95 20 H 151/72 H 97 Inital Vital Signs reviewed: Yes General: Well nourished, Well developed, Obese, No Acute Distress Head: Normocephalic, Atraumatic Eyes: Perrl, EOMI ENT: Moist mucous membranes, No rhinorrhea Neck: Supple, Nontender Cardiovascular: Regular rate, Regular rhythm, No murmurs Respiratory: No distress, Chest nontender, Wheezing - Mild, end expiratory, Diminished Abdomen: Soft, Nontender, Nondistended, Normal bowel sounds Back: Normal Inspection. Negative for: CVA tenderness, Spinal tenderness Extremities: Nontender, Edema - Nonpitting. Negative for: Calf Tenderness Skin: - - Warmth and erythema of the lower abdomen diffusely, skin is slightly thickened. Patient has scattered erythematous rash consistent with psoriasis. Chronic skin changes of the lower extremities with mild erythema bilaterally Neurological: Alert, Oriented x3, Cranial nerves II-XII grossly intact, Normal Strength, Normal Sensation Psychological: Normal affect, Normal Mood Diagnostic/Tx/Re-eval Chest X-Ray - ED: 2 View, Read by ED Physician, Read by Radiologist, No Acute Disease Clinical Impression(s) from Imaging Studies Chest X-Ray 11/02/19 08:48 IMPRESSION: Normal x-ray examination of the chest. Electronically Signed: Chava Gil, at 9:52 EST , Service support , Laboratory Data 11/02/19 11/02/19 11/02/19 09:04 09:04 09:04 WBC 10.1 RBC 4.36 L Hgb 13.0 Hct 39.7 L MCV 91.1 MCH 29.8 MCHC 32.7 RDW Std Deviation 45.1 H RDW Coeff of Lizett 13.6 Plt Count 210 MPV 9.4 Immature Gran % (Auto) 0.300 Neut % (Auto) 72.9 H Lymph % (Auto) 16.1 L Billings % (Auto) 6.5 Eos % (Auto) 3.6 Baso % (Auto) 0.6 Absolute Neuts (auto) 7.4 Absolute Lymphs (auto) 1.62 Nucleated RBC % 0 D-Dimer Quant (PE/DVT) 0.37 Sodium 137 Potassium 3.6 Chloride 101 Carbon Dioxide 33.0 H Anion Gap 3 L BUN 12 Creatinine 0.89 Estim Creat Clear Calc 130.84 Est GFR (MDRD) Af Amer 123 Est GFR (MDRD) Non-Af 102 BUN/Creatinine Ratio 13.5 Glucose 200 H Lactic Acid Calcium 8.5 Troponin I < 0.015 B-Natriuretic Peptide 11/02/19 11/02/19 09:04 09:04 WBC RBC Hgb Hct MCV MCH MCHC RDW Std Deviation RDW Coeff of Lieztt Plt Count MPV Immature Gran % (Auto) Neut % (Auto) Lymph % (Auto) Billings % (Auto) Eos % (Auto) Baso % (Auto) Absolute Neuts (auto) Absolute Lymphs (auto) Nucleated RBC % D-Dimer Quant (PE/DVT) Sodium Potassium Chloride Carbon Dioxide Anion Gap BUN Creatinine Estim Creat Clear Calc Est GFR (MDRD) Af Amer Est GFR (MDRD) Non-Af BUN/Creatinine Ratio Glucose Lactic Acid 1.7 Calcium Troponin I B-Natriuretic Peptide 7.8 - Rhythm Strip Rhythm Strip: Sinus Rhythm Rate: 81 Ectopy: None - EKG Initial EKG Interpretation: Sinus Rhythm, RBBB - incomplete, - - Normal sinus rhythm at a rate of 81 Right bundle branch block Normal axis Normal ST segments No significant change compared to prior EKG on 08/27/2019 Prior: Unchanged - Medical Decision Making Patient is evaluated for concern for abdominal wall cellulitis as well as worsening lower extremity edema. He does have a history of lymphedema. He is on Lasix and states he padilla been compliant with his medications. Patient wears 2 L at baseline. Patient's vital signs are normal and he is not hypoxic on his baseline oxygen. Chest x-ray does not show any acute process including pulmonary vascular congestion, infiltrate or pneumothorax. CBC is normal. Troponin as well as proBNP are also normal. BMP shows elevated CO2 which is consistent with patient's chronic respiratory failure. Patient is ambulated in the emergency room and does not have any hypoxia. D-dimer is negative. I do not suspect PE or fluid overload as the cause of his shortness of breath. As he is afebrile and otherwise well-appearing I think he is a good candidate for outpatient antibiotic treatment. He will also be doubled up on his Lasix for the next 3 days for his edema. Case discussed with his PCP who is agreeable this plan. He has a follow-up appointment next week. Patient is given first dose of Lasix in the emergency room. Patient is counseled on signs and symptoms requiring return to the emergency room. Patient verbalizes agreement and understand this plan. Patient discharged home in stable and improved condition. ED Disposition - Plan for ED Patient: Disposition: Home or Assisted Living Diagnosis: Abdominal wall cellulitis, Peripheral edema Instructions: Cellulitis, Lymphedema Prescriptions: Cephalexin [Keflex] 500 mg PO Q6 #28 cap Prescription Printed Referrals: Luci Licoan DO [Primary Care Provider] - Additional Instructions: Keep your follow-up appointment with your doctor next week. Take all antibiotics as prescribed. For the next 3 days take your water pill, Lasix, twice a day instead of once a day. Return the emergency room with any worsening symptoms.
[2019-11-02 09:13] VITALS: PULSE 85; RESP 18
[2019-11-02] MEDS: Ipratropium/Albuterol Sulfate 3 ML AMPUL.NEB INHALATION (09:13)
[2019-11-02 09:15] LABS: Absolute Lymphocyte Count 1.62 X10^3/uL (0.83-4.51); Absolute Neutrophil Count 7.4 X10^3/uL (2.0-7.7); Basophil# 0.06 X10^3/uL; Basophil% 0.6 % (0-1); Eosinophil# 0.36 X10^3/uL; Eosinophils% 3.6 % (0-5); Hematocrit 39.7 % (40-54); Lymphocyte # 1.62 X10^3/ul (4.0); Lymphocyte % 16.1 % (19-41); Mean Corp Hgb Conc 32.7 g/dL (32-36); Mean Corpuscular Hgb 29.8 pg (27.0-32.0); Mean Corpuscular Volume 91.1 fL (80-94); Mean Platelet Vol. 9.4 fl (6.2-12.0); Monocyte# 0.66 X10^3/uL; Monocyte% 6.5 % (0-10); NRBC Flagged by Analyzer 0 % (0-5); Neutrophil # 7.35 X10^3/uL (2.7-7.7); Neutrophil % 72.9 % (47-70); Platelet Count 210 K/mm3 (150-450); RBC Distribution Width CV 13.6 % (11.6-14.6); RBC Distribution Width SD 45.1 fl (35.1-43.9); Red Blood Count 4.36 M/mm3 (4.6-6.2); White Blood Count 10.1 K/mm3 (4.4-11.0)
[2019-11-02 09:27] LABS: D-Dimer Quantitative (DVT/PE) 0.37 FEU/ug/m (0.27-0.49)
[2019-11-02 09:28] VITALS: BP 151/72; PULSE 95; RESP 20; TEMP 36.3; O2SAT 97
[2019-11-02 09:30] LABS: Anion Gap 3 (5-15); BUN 12 mg/dL (7-18); BUN/Creat Ratio 13.5 RATIO (10-20); Calcium,Total 8.5 mg/dL (8.5-10.1); Chloride 101 mmol/L (98-107); Creatinine, Serum 0.89 mg/dL (0.70-1.30); EST Glomerular Filtration Rate 102 mL/min (>60); Est Glom Filt Rate - Afr Amer 123 mL/min (>60); Estimated Creatinine Clearance 130.84 ml/min; Glucose 200 mg/dL (74-106); Potassium 3.6 mmol/L (3.5-5.1); Sodium Level 137 mmol/L (136-145)
[2019-11-02 09:33] LABS: Lactic Acid 1.7 mmol/L (0.4-1.9)
[2019-11-02 10:22] VITALS: O2SAT 98
[2019-11-02 10:38] LABS: BNP,B-Type NATRIURETIC PEPTIDE 7.8 pg/mL (0-100)
[2019-11-02 10:52] VITALS: BP 164/94; PULSE 88; RESP 16; TEMP 36.7; O2SAT 98
[2019-11-02 11:14] VITALS: BP 134/70; PULSE 88; RESP 16; RESP 18; TEMP 36.8; O2SAT 95; O2SAT 99
[2019-11-02] MEDS: Cephalexin 250 MG Capsule 500 MG PO (12:24)
== END 2019-11-02 12:28 | disposition home or self-care (01) ==
PROVIDERS: Emergency Provider Emergency Medicine; PCP Family Medicine
DX: L03.311 Cellulitis of abdominal wall (principal); I89.0 Lymphedema, not elsewhere classified; I10 Essential (primary) hypertension; J96.11 Chronic respiratory failure with hypoxia; G47.33 Obstructive sleep apnea (adult) (pediatric); M54.5 Low back pain; G89.29 Other chronic pain; E66.01 Morbid (severe) obesity due to excess calories; F17.200 Nicotine dependence, unspecified, uncomplicated; Z99.81 Dependence on supplemental oxygen
CPT/HCPCS: 71046; 80048; 83605; 83880; 84484; 85025; 85379; 87040; 93005; 94640; 99285; A4216

== ENCOUNTER → 2019-11-08 09:40 | Outpatient (CLI) | payer MEDICAID, SELFPAY ==
[2019-11-02 08:28] VITALS: BMI 69.7
[2019-11-08 13:02] LABS: Anion Gap 5 (5-15); BUN 10 mg/dL (7-18); BUN/Creat Ratio 10.8 RATIO (10-20); Calcium,Total 9.3 mg/dL (8.5-10.1); Chloride 97 mmol/L (98-107); Creatinine, Serum 0.92 mg/dL (0.70-1.30); EST Glomerular Filtration Rate 97 mL/min (>60); Est Glom Filt Rate - Afr Amer 118 mL/min (>60); Glucose 120 mg/dL (70-110); Potassium 3.7 mmol/L (3.5-5.1); Sodium Level 134 mmol/L (136-145)
== END ==
PROVIDERS: PCP Family Medicine; Visit Provider Family Medicine
DX: E87.6 Hypokalemia (principal)
CPT/HCPCS: 36415; 80048

== ENCOUNTER 2019-11-14 12:34 | Outpatient (RCR) | payer MEDICAID, SELFPAY ==
--- NOTE | 2019-12-04 08:45 | HP.PTEVAL ---
Patient's Visit Information SASHA JACOBS II is a 39 year old M referred to Physical Therapy by Luci Licona DO with a diagnosis of Lumbar DDD with need for TENS unit. Date of Evaluation: 11/14/19 Physical Therapist: Emigdio Burgos DPT - Visit Plan Frequency: 1x/Week Duration: 2 Weeks Plan: Recommended use/getting personal TENS unit for self management of symptoms. Pt. has DDD with no success in reduction of symptoms with formal PT, but has some relief with use of a TENS unit. Recommending personal TENS unit at this point in time. - Subjective Findings: Pt. is here today for his initial evaluation with diagnosis of Lumbar DDD with need for TENS unit. Pt. reprots having increased pain for years, stemming from an injury at work. Pt. reports having tried PT previously without good success. Pt. did try a friends TENS unit and he reported that this really helped his pain. Pt. does reports N/T going down both legs and his lgs give out on him at times. PT. reports pain going both legs at times. Pt. also has multiple co morbidies including respiratory issues resulting in constant use of supplemental O2. Pt. reprots due to this he does not get out of the house much and has limited overall activity secondary to pain and breathing issues. Pt. is hopeful to get a TENS unit to assist with pain management. - Pain Lumbar spine Pain Intensity (Out of 10): 6 Pain Intensity Range: 2, 8 - Objective POSTURE: pt. had poor posture in sitting and standing. Pt. is over wt. Fwrd flexed posture. PALPATION: Pt. has tenderness throughout lumbar spine, lumbar erector spinea. NEURO: Pt. reports decreased sensation throughout BLEs. Pt. has normal DTR of bilateral LEs. ROM: LUMBAR SPINE: mod/max limitation throughout spine increase in symptoms in all directions. Tight HS, Tight hip flexors. Pt. has tight hip ER/IR as well. MMT: PT. has 5/5 strength throughout BLEs. Pt. ahs poor core strength. GAIT: Pt. has poor gait pattern. Pt. had B hip ER, limited secondary to increased LBP and respiratory fatigue. Pt. had supplemental O2 4L througout walking. Pt. able to walk upto 400ft. - Goals Goal 1:: STG: pt. to be educated in basic core stability exercises. Goal Time Frame: 1 Week Goal 2:: STG: Pt. to be educated in proper use of TENS unit and dosing parameters. Goal Time Frame: 1 Week Goal 3:: STG: Pt. to have personal TENS unit to assist with management of his symptoms. Goal Time Frame: 1 Week - Rehabilitation Potential Physical Therapy Diagnosis: Pt. has signs and symptoms consistent with LBP from DDD. Pt. has multiple co morbidities limited health active lifestyle. Pt. has limited lumbar ROM and limited core strenght. Pt. has tried PT in past without success. I believe at this point intime a personal use TENS unit would be appropriate to help with managing his symptoms. Rehabilitation Potential: Fair - Anticipated Interventions Patient/Client Instruction: Educate patient on: Condition, Plan of Care, Risk Factors, Benefits of Fitness Program For the Purpose of:: To improve decision making, To facilitate caregiver knowledge, To improve self management, To prevent re-injury, To improve ability to perform tasks related to life management, To improve tolerance to ADL's TENS: Yes - Along with education on personal use For the Purpose of:: To decrease pain, To increase oxygenation perfusion, To improve muscle performance and motor function, To decrease soft tissue restriction, To increase flexibility/ROM Thank you for the opportunity to evaluate your patient. For Medicare and Medicare HMO plans, please review the plan of care and approve it. It will need to be FAXED BACK to us at [phone] for Medicare purposes. For Medicare only, by signing this I certify the plan of care. Please let me know if there are questions or concerns regarding this plan of care. Physician Signature: Date:
--- NOTE | 2020-05-09 10:22 | HP.PT.NRP ---
SASHA JACOBS II was seen in my office for initial evaluation on 11/14/19. The following Plan of Care was established for this patient: Initial Frequency: 1x/Week Initial Duration: 2 Weeks Patient/Client Instruction: Educate patient on: Condition, Plan of Care, Risk Factors, Benefits of Fitness Program For the Purpose of:: To improve decision making, To facilitate caregiver knowledge, To improve self management, To prevent re-injury, To improve ability to perform tasks related to life management, To improve tolerance to ADL's TENS: Yes - Along with education on personal use For the Purpose of:: To decrease pain, To increase oxygenation perfusion, To improve muscle performance and motor function, To decrease soft tissue restriction, To increase flexibility/ROM This patient was last seen in our office 11/14/19. Pertinent comments regarding their Physical therapy will appear below: Pt. was seen in PT for his back pain. Pt. has not been seen in several months and will be DC from PT at this point in time. At this point I will be discontinuing this patient from physical therapy. I would be happy to see this patient again in the future if found appropriate by the physician. Thank you! Emigdio Burgos, JUDYT
== END 2019-11-14 19:00 | disposition home or self-care (01) ==
LOC: PT 12:34
PROVIDERS: PCP Family Medicine; Referring Provider Family Medicine; Visit Provider Family Medicine
DX: M51.36 Other intervertebral disc degeneration, lumbar region (principal)
CPT/HCPCS: 97161

== ENCOUNTER → 2019-12-12 13:05 | Outpatient (CLI) | payer MEDICAID, SELFPAY ==
--- NOTE | 2019-12-15 10:17 | PFT ---
INTRODUCTION: The patient is a 39-year-old male that presents for pulmonary function studies secondary to a diagnosis of shortness of breath. Respiratory therapy reports good patient effort. Bronchodilators were used during testing. Lung volumes were not obtained, as the patient was a unable to complete body plethysmography due to his size. INTERPRETATION: Forced expiration spirometry demonstrates the presence of a severe large airways obstructive ventilatory defect. There was a significant response to aerosolized bronchodilators noted, based upon change in both FEV1 and FVC. FVC is reduced at 48% of predicted, which could be suggestive of an underlying restrictive ventilatory defect. However, lung volumes would need to be completed to confirm the restriction. Diffusing capacity by single breath CO is reduced at 61% of predicted. IMPRESSION: Partially reversible severe large airways obstructive ventilatory defect with mild reduction in diffusing capacity. The reduced FVC could suggest an underlying restrictive impairment as well. However, lung volumes were unable to be obtained due to the patient's size.
== END ==
PROVIDERS: PCP Family Medicine; Referring Provider Nurse Practitioner Acute Care; Visit Provider Nurse Practitioner Acute Care
DX: R06.02 Shortness of breath (principal)
CPT/HCPCS: 94060; 94729

== ENCOUNTER → 2020-01-04 10:21 | Outpatient (CLI) | payer MEDICAID, SELFPAY ==
[2020-01-04 10:54] VITALS: PULSE 101; PULSE 83; PULSE 85; PULSE 90; PULSE 91; PULSE 93; O2SAT 87; O2SAT 95; O2SAT 98; O2SAT 99
--- NOTE | 2020-01-04 10:59 | CPS ---
Patient had to take a break at minute one. Patient spo2 dropped to 87% at 2.5 minutes. At that time patient placed on 2LNC. Patient had to sit after being placed on oxygen and had to sit for remainder of test.
--- NOTE | 2020-01-05 05:44 | PCM.PSN.6M ---
PSN 6 Minute Walk Test - 6 Minute Walk Test 6 Minute Walk Test: 6 Minute Walk Test PSN:6-Minute Walk Test Start: 01/04/20 10:52 Freq: Status: Active Protocol: [id number].[id number] Document 01/04/20 10:54 SMB (Rec: 01/04/20 11:04 SMB [id number]) 6 Minute Walk Test Date Performed 01/04/20 Time Performed 10:30 Height 6 ft 2 in Weight: 249.476 kg Weight in Pounds 550.[address]: Kamille Gong Assistive device used: None Pre-test Oxygen Delivery Method Room Air Pulse Ox (%) 98 Pulse Rate (60-100 beats/min) 83 Dyspnea Emily Scale (0-10) 3 Exertion Emily Scale (6-20) 11 1st minute Oxygen Delivery Method Room Air Pulse Ox (%) 98 Pulse Rate (60-100 beats/min) 91 2nd minute Oxygen Delivery Method Room Air Pulse Rate (60-100 beats/min) 90 Dyspnea Emily Scale (0-10) 95 3rd minute Oxygen Flow Rate (L/min) (L/min) 2 Oxygen Delivery Method Nasal Cannula Pulse Ox (%) 87 Pulse Rate (60-100 beats/min) 93 4th minute Oxygen Flow Rate (L/min) (L/min) 2 Oxygen Delivery Method Nasal Cannula Pulse Ox (%) 95 Pulse Rate (60-100 beats/min) 101 H 5th minute Oxygen Flow Rate (L/min) (L/min) 2 Oxygen Delivery Method Nasal Cannula Pulse Ox (%) 99 Pulse Rate (60-100 beats/min) 85 6th minute Oxygen Flow Rate (L/min) (L/min) 2 Oxygen Delivery Method Nasal Cannula Pulse Ox (%) 98 Pulse Rate (60-100 beats/min) 85 Post-test Oxygen Flow Rate (L/min) (L/min) 2 Oxygen Delivery Method Nasal Cannula Pulse Ox (%) 98 Pulse Rate (60-100 beats/min) 83 Dyspnea Emily Scale (0-10) 5 Exertion Emily Scale (6-20) 14 Full Laps Walked 4 Partial Lap, Number of Tiles Walked 6 Total Distance Walked (ft) 242 01/04/20 10:59 Cardiopulmonary Services by Karen Jordan Patient had to take a break at minute one. Patient spo2 dropped to 87% at 2.5 minutes. At that time patient placed on 2LNC. Patient had to sit after being placed on oxygen and had to sit for remainder of test. Initialized on 01/04/20 10:59 - END OF NOTE - Interpretation Interpretation: Patient was noted to be 98% on room air at rest. The patient then started to ambulate and desaturated to 87% in the third minute. Saturations improved to 95% on 2 L. In total, the patient was able to ambulate 242 feet over the course of 6 minutes with no assistive devices, but to extended breaks. These findings are consistent with a musculoskeletal and respiratory limitation exercise tolerance. - Recommendations Recommendations: Patient requires no supplemental oxygen at rest, but should be using 2 L nasal cannula with exertion.
== END ==
PROVIDERS: PCP Family Medicine; Referring Provider Nurse Practitioner Acute Care; Visit Provider Nurse Practitioner Acute Care
DX: R06.02 Shortness of breath (principal)
CPT/HCPCS: 94618

== ENCOUNTER → 2020-03-20 12:19 | Outpatient (CLI) | payer MEDICAID, SELFPAY ==
[2020-02-09 09:18] VITALS: BMI 69.7
--- NOTE | 2020-03-20 13:27 | NEURO ---
NCS and/or EMG Patient Report Ordering Doctor: Luci Licona DATE OF SERVICE: 03/20/20 Elijah Martinez is a 40-year-old male who presents for electrodiagnostic testing of the lower limbs. He reports numbness and tingling in both legs for the past 4 years. Electrodiagnostic findings: Testing was compromised by the patient's body habitus. Left peroneal motor nerve demonstrated normal distal latency and amplitude. Conduction velocity could not be determined. Right peroneal motor response could not be obtained. Left tibial motor nerve demonstrated normal distal latency with reduced amplitude. Proximal response could not be obtained. Right tibial motor response could not be obtained. Prolonged left medial plantar latency. Absent superficial peroneal response bilaterally. Absent medial plantar response. H reflexes could not be obtained. Needle EMG testing was performed in the more symptomatic right lower limb. Motor units of increased amplitude and duration were noted in tibialis anterior and peroneus longus. No membrane irritability was noted. Due to the body habitus, lumbar paraspinals could not be tested. Electrodiagnostic impression: This is an abnormal study in the lower limbs. 1. Findings are suggestive of peripheral polyneuropathy, with involvement of motor and sensory nerves. There are neurogenic motor units noted on EMG testing of the right lower limb. However the ability to obtain accurate motor and sensory nerve conduction responses is compromised by the patient's body habitus 2. An accurate assessment cannot be made regarding lumbosacral radiculopathy. If there are any further questions, please do not hesitate to contact me.
== END ==
PROVIDERS: PCP Family Medicine; Referring Provider Family Medicine; Visit Provider Family Medicine
DX: M51.36 Other intervertebral disc degeneration, lumbar region (principal)
CPT/HCPCS: 95886; 95911

== ENCOUNTER → 2020-06-04 09:47 | Outpatient (CLI) | payer MEDICAID, SELFPAY ==
[2020-02-09 09:18] VITALS: BMI 69.7
[2020-06-04 12:08] LABS: Absolute Lymphocyte Count 1.76 X10^3/uL (0.83-4.51); Absolute Neutrophil Count 7.2 X10^3/uL (2.0-7.7); Basophil# 0.05 X10^3/uL; Basophil% 0.5 % (0-1); Eosinophil# 0.42 X10^3/uL; Eosinophils% 4.2 % (0-5); Hematocrit 39.2 % (40-54); Hemoglobin 13.4 g/dL (13.0-16.5); Lymphocyte # 1.76 X10^3/ul (4.0); Lymphocyte % 17.7 % (19-41); Mean Corp Hgb Conc 34.2 g/dL (32-36); Mean Corpuscular Hgb 32.4 pg (27.0-32.0); Mean Corpuscular Volume 94.9 fL (80-94); Mean Platelet Vol. 10.4 fl (6.2-12.0); Monocyte# 0.52 X10^3/uL; Monocyte% 5.2 % (0-10); NRBC Flagged by Analyzer 0 % (0-5); Neutrophil # 7.15 X10^3/uL (2.7-7.7); Neutrophil % 71.7 % (47-70); Platelet Count 221 K/mm3 (150-450); RBC Distribution Width CV 14.3 % (11.6-14.6); RBC Distribution Width SD 47.6 fl (35.1-43.9); Red Blood Count 4.13 M/mm3 (4.6-6.2)
[2020-06-04 12:20] LABS: ALB/GLOB Ratio 0.9 RATIO (0.9-2.4); AST(SGOT) 31 U/L (15-37); Alanine Aminotransfer ALT/SGPT 78 U/L (16-61); Albumin, Serum 3.2 g/dL (3.2-5.0); Alkaline Phosphatase 120 U/L (45-117); Anion Gap 6 (5-15); BUN 15 mg/dL (7-18); BUN/Creat Ratio 15.4 RATIO (10-20); Calcium,Total 8.2 mg/dL (8.5-10.1); Chloride 98 mmol/L (98-107); Creatinine, Serum 0.97 mg/dL (0.70-1.30); EST Glomerular Filtration Rate 91 mL/min (>60); Est Glom Filt Rate - Afr Amer 110 mL/min (>60); Globulin 3.7 g/dL (2.2-4.2); Glucose 292 mg/dL (74-106); Potassium 3.3 mmol/L (3.5-5.1); Protein, Total 6.9 g/dL (6.4-8.2); Sodium Level 134 mmol/L (136-145)
[2020-06-04 12:38] LABS: Microalbumin,Random Urine 34.1 mg/L (NO RANGE EST.); Microalbumin:Creatinine Ratio 20.7 mg/g CRE (<30 mg/g CRE)
[2020-06-04 12:46] LABS: Hemoglobin A1c 7.7 % (3.8-5.6)
== END ==
PROVIDERS: PCP Family Medicine; Visit Provider Family Medicine
DX: E11.9 Type 2 diabetes mellitus without complications (principal); D64.9 Anemia, unspecified
CPT/HCPCS: 36415; 80053; 82043; 82570; 83036; 85025

== ENCOUNTER 2020-08-07 11:47 | Emergency (ER) | payer MEDICAID, SELFPAY ==
[2020-02-09 09:18] VITALS: BMI 69.7
[2020-08-07 11:48] VITALS: BP 133/87; PULSE 92; RESP 18; TEMP 34.9; O2SAT 98; BMI 68.8
--- NOTE | 2020-08-07 14:22 | EKG12_ITS ---
Test Reason : GENERAL Blood Pressure : / mmHG Vent. Rate : 090 BPM Atrial Rate : 090 BPM P-R Int : 168 ms QRS Dur : 102 ms QT Int : 384 ms P-R-T Axes : -04 036 033 degrees QTc Int : 469 ms Suspect unspecified pacemaker failure Normal sinus rhythm Normal ECG Confirmed by GEM RETANA, LOGAN ([id number]), photograph editor ARA BRADSHAW ([id number]) on 08/08/2020 1:00:50 PM Referred By: BB Confirmed By:MIKEY RABAGO MD
[2020-08-07 14:23] VITALS: O2SAT 98
--- NOTE | 2020-08-07 14:24 | CT_ITS ---
STUDY: CTA HEAD AND NECK WITH CONTRAST REASON FOR EXAM: Male, 40 years old. DIZZINESS/WEAKNESS X1 WEEK -- +HTN -- ? STROKE RADIATION DOSAGE (If Supplied By Facility): CTDIvol = ( 30.22 ) mGy, DLP = ( 1611.52 ) mGycm TECHNIQUE: CT angiography was performed with a multi-detector CT scanner. Data acquisition was obtained from the skull base through the vertex following intravenous administration of IV 100mL Isovue-370. MIP images were reconstructed from the axial data set. Post-processing of the angiographic images was performed, with multiplanar reformation and 3D reconstruction. Individualized dose optimization techniques were used for this CT. COMPARISON: No relevant priors. FINDINGS: Normal bilateral petrous carotid arteries. Normal right cavernous carotid artery with a normal supraclinoid bifurcation. Normal left cavernous carotid artery with a normal supraclinoid bifurcation. Normal right A1 segments of the anterior cerebral artery. Normal left A1 segments of the anterior cerebral artery. Normal intact anterior communicating artery (ACOM). Normal bilateral A2 segments of the anterior cerebral arteries. Normal right M1 and M2 segments of the middle cerebral arteries, with a normal M1 bifurcation. Normal left M1 and M2 segments of the middle cerebral arteries, with a normal M1 bifurcation. Normal right posterior communicating artery (PCOM). Normal left posterior communicating artery (PCOM). Normal bilateral vertebral arteries. Normal basilar artery with a normal basilar bifurcation. The visualized bilateral superior cerebellar (SCA) arteries are normal. Normal bilateral P1, P2 and visualized P3 segments of the posterior cerebral arteries. There is no demonstrated aneurysm of the [place]. Partial opacification of the right maxillary sinus. AORTIC ARCH: Normal visualized aortic arch. Normal origins of the brachiocephalic, left common carotid, and left subclavian arteries. RIGHT CAROTID ARTERIES: Normal right common carotid artery (CCA). Normal right common carotid bulb. Normal origin of the right internal carotid (ICA) artery without a hemodynamically significant stenosis. Normal visualized cervical portion of the right internal carotid artery. Normal origin of the right external carotid artery (ECA). LEFT CAROTID ARTERIES: Normal left common carotid artery (CCA). Normal left common carotid bulb. Normal origin of the left internal carotid (ICA) artery without a hemodynamically significant stenosis. Normal visualized cervical portion of the left internal carotid artery. Normal origin of the left external carotid artery (ECA). VERTEBRAL ARTERIES: There is enhancement within the bilateral vertebral arteries with a small left vertebral artery, and a dominant right vertebral artery. CT/CTA Head AND Neck W/ Contrast IMPRESSION: Normal CTA Head and neck with contrast. Electronically Signed: Chava Gil, at 15:49 EST , Service support ,
--- NOTE | 2020-08-07 14:40 | RAD_ITS ---
STUDY: X-RAY CHEST REASON FOR EXAM: Male, 40 years old. Dizziness, loss of appetite, diarrhea TECHNIQUE: Single AP portable view of the chest. COMPARISON: Comparison is made with prior study dated 11/02/2019. FINDINGS: The lungs are clear and expanded. There is no demonstrated pleural abnormality. Normal size heart. Normal mediastinum and radha. Normal visualized pulmonary arteries. Normal visualized aortic arch and descending thoracic aorta. Normal visualized thoracic spine. Normal visualized ribs, clavicles, and shoulders. There is no demonstrated abnormality of the visualized soft tissue structures of the upper abdomen. RAD/Chest 1 View IMPRESSION: Normal x-ray examination of the chest. Electronically Signed: Chava Gil, at 14:55 EST , Service support ,
[2020-08-07 14:46] LABS: Absolute Lymphocyte Count 2.05 X10^3/uL (0.83-4.51); Absolute Neutrophil Count 8.3 X10^3/uL (2.0-7.7); Basophil# 0.09 X10^3/uL; Basophil% 0.8 % (0-1); Eosinophil# 0.38 X10^3/uL; Eosinophils% 3.3 % (0-5); Hematocrit 49.7 % (40-54); Hemoglobin 16.9 g/dL (13.0-16.5); Lymphocyte # 2.05 X10^3/ul (4.0); Lymphocyte % 17.7 % (19-41); Mean Corpuscular Hgb 29.4 pg (27.0-32.0); Mean Corpuscular Volume 86.6 fL (80-94); Mean Platelet Vol. 9.5 fl (6.2-12.0); Monocyte# 0.72 X10^3/uL; Monocyte% 6.2 % (0-10); NRBC Flagged by Analyzer 0 % (0-5); Neutrophil # 8.25 X10^3/uL (2.7-7.7); Neutrophil % 71.3 % (47-70); Platelet Count 331 K/mm3 (150-450); RBC Distribution Width CV 14.1 % (11.6-14.6); RBC Distribution Width SD 44.4 fl (35.1-43.9); Red Blood Count 5.74 M/mm3 (4.6-6.2); White Blood Count 11.6 K/mm3 (4.4-11.0)
[2020-08-07 14:55] LABS: Prothrombin Time (Protime)PT. 12.5 SECONDS (11.7-14.9)
[2020-08-07 14:56] LABS: Partial Thromboplast Time 37.6 Seconds (24.1-36.2)
[2020-08-07 15:08] LABS: Anion Gap 18 (5-15); BUN 5 mg/dL (7-18); BUN/Creat Ratio 3.9 RATIO (10-20); Calcium,Total 8.9 mg/dL (8.5-10.1); Chloride 98 mmol/L (98-107); Creatinine, Serum 1.28 mg/dL (0.70-1.30); EST Glomerular Filtration Rate 66 mL/min (>60); Est Glom Filt Rate - Afr Amer 80 mL/min (>60); Estimated Creatinine Clearance 90.08 ml/min; Glucose 351 mg/dL (74-106); Potassium 2.8 mmol/L (3.5-5.1); Sodium Level 132 mmol/L (136-145)
--- NOTE | 2020-08-07 16:06 | ED.VIS.GEN ---
History of Present Illness Chief Complaint: General Illness Narrative: Patient presents with loose stools for the past week, he tells me this is diarrhea, he tells me he has lightheadedness as well as dizziness. There is no vertigo no spinning sensation no vision changes. He denies any chest pain or shortness of breath. The dizziness is however ill-defined and I spent quite a bit of time trying to get him to describe it and I could not. It does seem to be somewhat positional but not always sometimes it is worse when he stands up sometimes it is not sometimes it is worse when he turns his head sometimes it is not. Past Medical History - Allergies and Home Meds Allergies/Adverse Reactions: Allergies No Known Allergies Allergy (Verified 08/07/20 11:50) Primary Care Physician: Luci Licona DO [Primary Care Provider] - Past Medical History: - - Hypertension, diabetes, morbid obesity, hypercholesterolemia Surgical History: no surgical history Smoking Status: Current every day smoker - Family History Paternal Family History: Reports: Diabetes, Heart Disease Maternal Family History: Reports: Diabetes Review of Systems All systems negative except as indicated General: Denies: Fever Eyes: Denies: Visual changes - bilaterally ENT: Denies: Rhinorrhea, Sore throat Cardiovascular: Denies: Chest pain Respiratory: Denies: Dyspnea, Cough Gastrointestinal: Reports: Nausea, Diarrhea. Denies: Abdominal pain Musculoskeletal: Denies: Myalgias, Back pain Skin: Denies: Rash Neurological: Denies: Headache Psych: Denies: Depression Endocrine: Denies: Polyuria Hematologic: Denies: Easy bruising Physical Exam Vital Signs/Narrative: Vital Signs Pulse Ox 08/07/20 14:23 98 General: Well nourished, Obese Head: Normocephalic ENT: Dry mucous membranes Neck: Supple Cardiovascular: Regular rate, Regular rhythm Respiratory: No distress, CTA bilaterally Abdomen: Soft, Nontender Back: Nontender, Normal Inspection Extremities: Nontender Skin: Normal color Neurological: Alert, Normal Strength, Normal Sensation Psychological: Normal affect Diagnostic/Tx/Re-eval - Rhythm Strip Rhythm Strip: Sinus Rhythm Rate: 90 Ectopy: None - EKG Initial EKG Interpretation: - - Sinus rhythm with a rate of 90. Normal SD interval. Normal QTc interval. No ST changes. Interpreted by emergency doctor - Medical Decision Making Patient has an unremarkable work-up, he is hypokalemic which was replenished in the ED, he is hyperglycemic which I believe is contributing to his lightheadedness. He received IV fluids. He received insulin. He will need stricter blood sugar management. He is to call his physician today and get medication changes for his blood sugars. Otherwise he will be discharged in stable condition ED Disposition - Plan for ED Patient: Diagnosis: Dehydration, Hypokalemia, Hyperglycemia Instructions: ED Diabetic Hyperglycemia, ED Dehydration Adult, ED Potassium Deficiency Prescriptions: Potassium Chloride 40 meq PO DAILY #10 [email or web address] Prescription Printed Referrals: Luci Licona DO [Primary Care Provider] - 2 Days
[2020-08-07] MEDS: Ondansetron 4 MG/2 ML Vial IV (16:14)
[2020-08-07] MEDS: 0.9% Normal Saline 1,000 ML 999 ML IV (16:16)
[2020-08-07 16:17] VITALS: BP 149/88; PULSE 92; RESP 20; O2SAT 98
[2020-08-07] MEDS: Insulin Human 75/25 Kwickpen 10 UNIT SC (18:14)
[2020-08-07 18:19] VITALS: BP 157/106; PULSE 91; RESP 18; O2SAT 99
[2020-08-07 18:25] VITALS: RESP 18; O2SAT 99
== END 2020-08-07 18:43 | disposition home or self-care (01) ==
PROVIDERS: Emergency Provider Emergency Medicine; PCP Family Medicine
DX: E86.0 Dehydration (principal); E87.6 Hypokalemia; E11.65 Type 2 diabetes mellitus with hyperglycemia; I10 Essential (primary) hypertension; E78.00 Pure hypercholesterolemia, unspecified; E66.01 Morbid (severe) obesity due to excess calories; F17.200 Nicotine dependence, unspecified, uncomplicated; Z79.84 Long term (current) use of oral hypoglycemic drugs; Z79.899 Other long term (current) drug therapy
CPT/HCPCS: 70496; 70498; 71045; 80048; 84484; 85025; 85610; 85730; 93005; 96361; 96374; 99284; J7030; Q9967; A4216; J2405

== ENCOUNTER → 2020-12-16 12:50 | Outpatient (CLI) | payer MEDICAID, SELFPAY ==
[2020-09-19 13:58] VITALS: BMI 65.0
--- NOTE | 2020-12-16 14:34 | PFTCOMP_ITS ---
COMPLETE PULMONARY FUNCTION TEST INTERPRETATION Brief HPI: Patient is a 40 year old male, currently under the care of myself, who presents to [facility] for complete pulmonary function tests secondary to diagnosis of chronic respiratory failure. Respiratory therapist reports good effort and reproducible results. Interpretation: Forced expiration spirometry shows a moderately severe large airways obstructive ventilatory defect with an FEV1 of 58% predicted. There is a significant bronchodilator response in FVC and FEV1 by strict ATS criteria. Spirograms are of good quality and plateau slowly, indicating slowly emptying areas of the lungs. The respiratory flow volume loop shows decreased expiratory flow rates at all lung volumes consistent with airway obstruction. Diffusion capacity by carbon monoxide is decreased at 59% predicted. The airway resistance maneuver was not completed. Compared to previous pulmonary function tests from 12/12/2019, there has been no significant change. Impression: Partially reversible moderately severe obstructive ventilatory defect with symmetric reduction diffusing capacity. An element of restriction cannot be excluded. Recommend lung volumes
== END ==
PROVIDERS: PCP Family Medicine; Referring Provider Internal Medicine Critical Care Medicine; Visit Provider Internal Medicine Critical Care Medicine
DX: J96.11 Chronic respiratory failure with hypoxia (principal)
CPT/HCPCS: 94060; 94726; 94729

== ENCOUNTER → 2021-01-15 15:06 | Outpatient (CLI) | payer MEDICAID, SELFPAY ==
[2021-01-15 14:15] VITALS: BMI 70.6
[2021-01-15 16:11] LABS: Absolute Lymphocyte Count 1.59 X10^3/uL (0.83-4.51); Absolute Neutrophil Count 8.8 X10^3/uL (2.0-7.7); Basophil# 0.06 X10^3/uL; Basophil% 0.5 % (0-1); Eosinophil# 0.34 X10^3/uL; Eosinophils% 2.9 % (0-5); Hematocrit 42.7 % (40-54); Hemoglobin 13.5 g/dL (13.0-16.5); Lymphocyte # 1.59 X10^3/ul (0.83-4.51); Lymphocyte % 13.8 % (19-41); Mean Corp Hgb Conc 31.6 g/dL (32-36); Mean Corpuscular Hgb 29.2 pg (27.0-32.0); Mean Corpuscular Volume 92.4 fL (80-94); Mean Platelet Vol. 9.5 fl (6.2-12.0); Monocyte# 0.66 X10^3/uL; Monocyte% 5.7 % (0-10); NRBC Flagged by Analyzer 0 % (0-5); Neutrophil # 8.83 X10^3/uL (2.7-7.7); Neutrophil % 76.6 % (47-70); Platelet Count 257 K/mm3 (150-450); RBC Distribution Width CV 14.8 % (11.6-14.6); RBC Distribution Width SD 50.7 fl (35.1-43.9); Red Blood Count 4.62 M/mm3 (4.6-6.2); White Blood Count 11.5 K/mm3 (4.4-11.0)
[2021-01-15 16:13] LABS: ALB/GLOB Ratio 1.1 RATIO (0.9-2.4); AST(SGOT) 18 U/L (15-37); Alanine Aminotransfer ALT/SGPT 40 U/L (16-61); Albumin, Serum 3.6 g/dL (3.2-5.0); Alkaline Phosphatase 96 U/L (45-117); Anion Gap 2 (5-15); BUN 11 mg/dL (7-18); BUN/Creat Ratio 14.5 RATIO (10-20); Calcium,Total 8.7 mg/dL (8.5-10.1); Chloride 102 mmol/L (98-107); Creatinine, Serum 0.76 mg/dL (0.70-1.30); EST Glomerular Filtration Rate 121 mL/min (>60); Est Glom Filt Rate - Afr Amer 146 mL/min (>60); Globulin 3.4 g/dL (2.2-4.2); Glucose 118 mg/dL (74-106); Potassium 3.7 mmol/L (3.5-5.1); Sodium Level 137 mmol/L (136-145)
[2021-01-21 11:33] LABS: HEPATITIS B SURFACE AG Negative (Negative); Hepatitis A AB, Total Negative (Negative); Hepatitis A IgM Antibody Negative (Negative); Hepatitis B Core AB IgM Negative (Negative); Hepatitis B Core Ab Total Negative (Negative); Hepatitis C Ab <0.1 s/co ratio (0.0-0.9); QNTFERON TB Mitogen Value > 10.00 IU/mL (.); QNTFERON TB Nil Value 0 IU/mL (.); QNTFERON TB1+ Ag Value 0.04 IU/mL (.); QNTFERON TB2+ Ag Value 0.03 IU/mL (.)
[2021-01-21 11:34] LABS: Hep B Surface Antibodies Non Reactive (.); QNTIFERON TB Positive Criteria Negative (Negative)
== END ==
PROVIDERS: PCP Family Medicine; Referring Provider Family Medicine; Visit Provider Family Medicine
DX: L40.9 Psoriasis, unspecified (principal); Z51.81 Encounter for therapeutic drug level monitoring; Z79.899 Other long term (current) drug therapy
CPT/HCPCS: 36415; 80053; 85025; 86480; 86704; 86705; 86706; 86708; 86709; 86803; 87340

== ENCOUNTER → 2021-05-30 | Outpatient (CLI) | payer MEDICAID, SELFPAY | END | disposition home or self-care (01) | LOC: LABSPEC 15:41 | PROVIDERS: PCP Family Medicine; Visit Provider Family Medicine | DX: Z20.822 Contact with and (suspected) exposure to COVID-19 (principal) | CPT/HCPCS: 87635; U0005; U0003 ==

== ENCOUNTER → 2021-07-07 | Outpatient (CLI) | payer MEDICAID, SELFPAY | END | disposition home or self-care (01) | LOC: LABSPEC 12:39 | PROVIDERS: PCP Family Medicine; Visit Provider Family Medicine | DX: Z20.828 Contact with and (suspected) exposure to other viral communicable diseases (principal) | CPT/HCPCS: 87635; U0005; U0003 ==

== ENCOUNTER 2021-11-25 11:00 | Outpatient (CLI) | payer MEDICAID, SELFPAY | END 2021-11-25 23:59 | disposition home or self-care (01) | PROVIDERS: PCP Family Medicine; Referring Provider Internal Medicine Critical Care Medicine; Visit Provider Internal Medicine Critical Care Medicine | DX: G47.33 Obstructive sleep apnea (adult) (pediatric) (principal) | CPT/HCPCS: 98960; G0463 ==

== ENCOUNTER → 2022-02-12 | Outpatient (CLI) | payer MEDICAID, SELFPAY ==
[2022-02-12 14:58] LABS: Absolute Lymphocyte Count 1.84 X10^3/uL (0.83-4.51); Absolute Neutrophil Count 7.3 X10^3/uL (2.0-7.7); Basophil# 0.07 X10^3/uL; Basophil% 0.7 % (0-1); Eosinophil# 0.25 X10^3/uL; Eosinophils% 2.5 % (0-5); Hematocrit 42.4 % (40-54); Hemoglobin 13.9 g/dL (13.0-16.5); Lymphocyte # 1.84 X10^3/ul (0.83-4.51); Lymphocyte % 18.2 % (19-41); Mean Corp Hgb Conc 32.8 g/dL (32-36); Mean Corpuscular Hgb 29.6 pg (27.0-32.0); Mean Corpuscular Volume 90.4 fL (80-94); Mean Platelet Vol. 9.2 fl (6.2-12.0); Monocyte# 0.62 X10^3/uL; Monocyte% 6.1 % (0-10); NRBC Flagged by Analyzer 0 % (0-5); Neutrophil # 7.29 X10^3/uL (2.7-7.7); Neutrophil % 71.9 % (47-70); Platelet Count 233 K/mm3 (150-450); RBC Distribution Width CV 14.6 % (11.6-14.6); RBC Distribution Width SD 47.9 fl (35.1-43.9); Red Blood Count 4.69 M/mm3 (4.6-6.2); White Blood Count 10.1 K/mm3 (4.4-11.0)
[2022-02-12 15:15] LABS: AST(SGOT) 43 U/L (15-37); Alanine Aminotransfer ALT/SGPT 72 U/L (16-61); Albumin, Serum 3.6 g/dL (3.2-5.0); Alkaline Phosphatase 91 U/L (45-117); Anion Gap 3 (5-15); BUN 10 mg/dL (7-18); Calcium,Total 8.7 mg/dL (8.5-10.1); Chloride 103 mmol/L (98-107); Cholesterol 160 mg/dL (200); Creatinine, Serum 0.91 mg/dL (0.70-1.30); EST Glomerular Filtration Rate 97 mL/min (>60); Est Glom Filt Rate - Afr Amer 118 mL/min (>60); Globulin 3.7 g/dL (2.2-4.2); Glucose 131 mg/dL (74-106); High Density Lipoprotein 32 mg/dL; Protein, Total 7.3 g/dL (6.4-8.2); Sodium Level 136 mmol/L (136-145); Triglycerides 347 mg/dL; Very Low Density Lipoprotein 69 mg/dL (5-40)
[2022-02-12 15:44] LABS: Hemoglobin A1c 6.4 % (3.8-5.6)
[2022-02-12 15:50] LABS: Microalbumin,Random Urine 37.7 mg/L (NO RANGE EST.); Microalbumin:Creatinine Ratio 15.6 mg/g CRE (<30 mg/g CRE)
== END | disposition home or self-care (01) ==
LOC: PAVLAB 14:29
PROVIDERS: PCP Family Medicine; Referring Provider Family Medicine; Visit Provider Family Medicine
DX: E11.69 Type 2 diabetes mellitus with other specified complication (principal); E66.9 Obesity, unspecified; E78.5 Hyperlipidemia, unspecified
CPT/HCPCS: 36415; 80053; 80061; 82043; 82570; 83036; 85025

== ENCOUNTER 2022-05-18 09:35 | Day surgery (SDC) | payer MEDICAID, SELFPAY ==
[2022-05-18] MEDS: Lactated Ringers 1,000 ML 15 ML IV (09:55)
[2022-05-18 10:13] VITALS: BP 165/103; PULSE 91; RESP 18; TEMP 36.3; O2SAT 98; BMI 71.8
[2022-05-18] MEDS: 0.9% Normal Saline (Pres. free 10 ML Vial (10:55)
[2022-05-18] MEDS: MethylPREDNISolone Acetate 80 MG/ML Vial (10:55)
[2022-05-18] MEDS: Lidocaine 1% (5 ml sdv) 5 ML Vial (10:55)
[2022-05-18] MEDS: Bupivacaine 0.25% 30 ML Vial (10:55)
[2022-05-18 11:04] VITALS: BP 159/78; BP 165/99; PULSE 82; RESP 20; TEMP 37.3; O2SAT 99
[2022-05-18 11:10] VITALS: BP 165/99; BP 169/85; PULSE 82; RESP 20; O2SAT 99
--- NOTE | 2022-05-18 11:10 | RAD_ITS ---
INDICATION: Caudal block EXAMINATION/TECHNIQUE: X-RAY - IR Fluoro Guide Injection Spine COMPARISON: 06/23/2021. FLUOROSCOPY TIME: 0:13 minutes FINDINGS: 3 spot fluoroscopic images were obtained intraoperatively. Images demonstrate the needle placement for caudal epidural block. No radiologist was present for the procedure, please refer to operative report for details. RAD/Fluor Guidance for Spine Inj IMPRESSION: Please refer to operative report for details. Electronically Signed: Seferino Sweeney MD at 7:55 EDT ,
[2022-05-18 11:15] VITALS: BP 160/76; BP 165/99; PULSE 79; RESP 22; O2SAT 100
[2022-05-18 11:19] VITALS: BP 157/67; BP 165/99; PULSE 80; RESP 20; TEMP 37; O2SAT 100
[2022-05-18 11:40] VITALS: BP 165/99
[2022-05-18 11:50] LABS: Bedside Glucose 167 mg/dL (74-106)
--- NOTE | 2022-05-18 12:28 | OP.PCM_ITS ---
Report of Operation Date of Procedure: 05/18/22 Pre-Operative Diagnosis: Lumbosacral radiculopathy, lumbosacral degenerative di sc disease, lumbosacral spinal stenosis Post-Operative Diagnosis: Lumbosacral radiculopathy, lumbosacral degenerative disc disease, lumbosacral spinal stenosis Surgery/Procedure Performed:: Caudal epidural steroid injection under fluoroscopic guidance Type of Anesthesia: MAC Estimated Blood Loss (mL): Minimal Description of Procedure: DESCRIPTION OF PROCEDURE: History and physical of today was reviewed. Risks and benefits of the procedure were explained. The patient understood and agreed to proceed. Informed consent was obtained. IV inserted per routine protocol. The patient was taken to the operating room and placed in the prone position with a pillow positioned underneath the abdomen. The lower back and tailbone area was prepped and draped in a sterile fashion using iodine x3. Under fluoroscopy guidance on a lateral view, the caudal space was identified. The skin and subcutaneous tissue was anesthetized with approximately 3 mL of 1% lidocaine using a 25-gauge regular needle. Under direct visualization with fluoroscopy, using a 22-gauge 3-1/2-inch spinal needle, the needle was advanced via the skin through the sacral hiatus. The tip of the needle was passed through the sacrococcygeal ligament and advanced to approximately S4 area. After negative aspiration of blood or CSF, a total of 3 mL of contrast was injected to confirm correct placement of the needle as well as cephalad spread. The spread was followed to approximately L5 area. After confirmation on AP as well as lateral view and repeated negative aspiration, a total of 15 mL of preservative-free 0.125% Marcaine with 80 mg of Depo-Medrol was injected easily. The needle was then removed intact. The patient experienced no sign or symptoms of intrathecal or intravascular injection. The patient experienced no paresthesia. The procedure was completed without any apparent difficulty or any complications. The patient appeared to tolerate it well. ASSESSMENT AND PLAN: This is a 42-year-old male with lumbosacral radiculopathy, lumbosacral degenerative disc disease, lumbosacral spinal stenosis status post caudal epidural steroid injection, patient will continue his current medications, patient will follow in approximately 2 weeks for reevaluation. Complications None
== END 2022-05-18 11:50 | disposition home or self-care (01) ==
LOC: SDC 09:39 → AC 09:41
PROVIDERS: PCP Family Medicine; Referring Provider Anesthesiology Pain Medicine; Visit Provider Anesthesiology Pain Medicine
PROC: 3E0S3BZ Introduction of Anesthetic Agent into Epidural Space, Percutaneous Approach (ICD-10-PCS; CPT 62282; principal; 2022-05-18 11:05)
DX: M51.17 Intervertebral disc disorders with radiculopathy, lumbosacral region (principal); J44.9 Chronic obstructive pulmonary disease, unspecified; E11.9 Type 2 diabetes mellitus without complications; M48.07 Spinal stenosis, lumbosacral region; I10 Essential (primary) hypertension; F32.A Depression, unspecified; Z79.84 Long term (current) use of oral hypoglycemic drugs; Z99.81 Dependence on supplemental oxygen; Z79.891 Long term (current) use of opiate analgesic; Z79.899 Other long term (current) drug therapy
CPT/HCPCS: 62323; 01992; 64483; 77003; 82962; J7120; J3490

== ENCOUNTER 2022-08-10 07:59 | Day surgery (SDC) | payer MEDICAID, SELFPAY ==
[2022-08-10 08:13] VITALS: BP 162/86; PULSE 74; RESP 16; TEMP 36.6; O2SAT 100; BMI 70.7
--- NOTE | 2022-08-10 08:25 | RAD_ITS ---
PROCEDURE: Left L4-S1 medial branch nerve block. DATE OF EXAMINATION: 08/10/2022. INDICATION: Male, 42 years old. Low back pain. FLUOROSCOPY TIME (if supplied): (30 seconds) minutes/seconds. 5 images were obtained. RAD/L/S Spine Min 4 Views IMPRESSION: Intraoperative imaging provided for left L4-S1 medial branch nerve block. Electronically Signed: Chava Gil MD at 14:06 EST ,
[2022-08-10] MEDS: Lidocaine 1% (5 ml sdv) 5 ML Vial (08:34)
[2022-08-10] MEDS: Bupivacaine 0.25% 30 ML Vial (08:35)
[2022-08-10] MEDS: MethylPREDNISolone Acetate 80 MG/ML Vial (08:35)
--- NOTE | 2022-08-10 08:38 | OP.PCM_ITS ---
Report of Operation Date of Procedure: 08/10/22 Description of Surgical Findings:: PREOPERATIVE DIAGNOSIS: Lumbosacral spondylosis, lumbosacral degenerative disc disease, lumbar facet arthropathy POSTOPERATIVE DIAGNOSIS: Lumbosacral spondylosis, lumbosacral degenerative disc disease, lumbar facet arthropathy PROCEDURE PERFORMED: Left-sided lumbar medial branch block at, L4, L5, and S1. ANESTHESIA: Local BLOOD LOSS: Minimal. COMPLICATIONS: None. DESCRIPTION OF PROCEDURE: History and physical of today was reviewed. Risks and benefits of the procedure were explained. The patient understood and agreed to proceed. Informed consent was obtained. IV inserted per routine protocol. The patient was taken to the operating room and placed in the prone position with a pillow positioned underneath the abdomen. The left side of her lower back was prepped and draped in a sterile fashion using iodine x3. Under fluoroscopy on oblique view, the L3 through S1 vertebral bodies were visualized. The skin and subcutaneous tissue was anesthetized with approximately 5 mL of 1% lidocaine using a 25-gauge regular needle. Under direct visualization with fluoroscopy, at approximately 25-degree angle starting on the left L3, ending on the left S1, passing through the L4 and L5, using a 22-gauge 3-1/2-inch spinal needle, the needle was advanced via the skin. The tip of the needle was maneuvered and directed towards the superior medial gutter of the transverse process at the vicinity of the medial branch. Once tip of the needle was in contact with the bone, the needle was pulled approximately 2 mm off the bone. After negative aspiration of blood or CSF and confirmation on AP as well as oblique view, a total of 8 mL of preservative-free 0.25% Marcaine with 80 mg of Depo-Medrol was injected in divided doses between those four levels. The needles were then removed intact. The patient experienced no sign or symptoms of intrathecal or intravascular injection. The patient experienced no paresthesia. The procedure was completed without any apparent difficulty or any complications. The patient appeared to tolerate it well. ASSESSMENT AND PLAN: This is a 42-year-old male with lumbosacral spondylosis, lumbosacral d egenerative disc disease, lumbar facet arthropathy status post left-sided lumbar medial branch block at L4-S1, patient will continue his current medications, patient will follow approximately 1 week for reevaluation
[2022-08-10 08:54] VITALS: BP 120/87; BP 162/86; PULSE 70; RESP 18; TEMP 36.5; O2SAT 96
== END 2022-08-10 09:07 | disposition home or self-care (01) ==
LOC: SDC 08:00 → AC 08:01
PROVIDERS: PCP Family Medicine; Referring Provider Anesthesiology Pain Medicine; Visit Provider Anesthesiology Pain Medicine
PROC: 3E0S3BZ Introduction of Anesthetic Agent into Epidural Space, Percutaneous Approach (ICD-10-PCS; CPT 62322; principal; 2022-08-10 08:45)
DX: M47.817 Spondylosis without myelopathy or radiculopathy, lumbosacral region (principal); J44.9 Chronic obstructive pulmonary disease, unspecified; M51.37 Other intervertebral disc degeneration, lumbosacral region; M47.816 Spondylosis without myelopathy or radiculopathy, lumbar region; E66.9 Obesity, unspecified; Z79.84 Long term (current) use of oral hypoglycemic drugs; Z79.899 Other long term (current) drug therapy
CPT/HCPCS: 64493; 64494; 64483; 72110

== ENCOUNTER 2022-12-04 00:22 | Emergency (ER) | payer MEDICARE, MEDICAID, SELFPAY ==
[2022-12-04 00:23] VITALS: BP 169/96; PULSE 71; RESP 18; TEMP 36.8; O2SAT 98
--- NOTE | 2022-12-04 03:01 | RAD_ITS ---
INDICATION: dyspnea EXAMINATION/TECHNIQUE: X-RAY - XR Chest 1 View COMPARISON: None. FINDINGS: LINES/DEVICES: None. LUNGS: No consolidation, edema or effusion. No pneumothorax. MEDIASTINUM AND CARDIOVASCULAR STRUCTURES: Cardiac silhouette not enlarged. Central airways and mediastinal contour are unremarkable. BONES AND SOFT TISSUES: Unremarkable. RAD/Chest 1 View (Portable) IMPRESSION: No radiographic evidence of acute cardiopulmonary disease. Electronically Signed: Matt Townsend MD at 4:13 EST ,
[2022-12-04 03:12] VITALS: BP 127/68; PULSE 70; RESP 20; O2SAT 99
[2022-12-04 03:17] LABS: Absolute Lymphocyte Count 2.13 X10^3/uL (0.83-4.51); Absolute Neutrophil Count 5.9 X10^3/uL (2.0-7.7); Basophil# 0.05 X10^3/uL; Basophil% 0.6 % (0-1); Eosinophil# 0.25 X10^3/uL; Eosinophils% 2.8 % (0-5); Hematocrit 37.8 % (40-54); Hemoglobin 12.2 g/dL (13.0-16.5); Lymphocyte # 2.13 X10^3/ul (0.83-4.51); Mean Corp Hgb Conc 32.3 g/dL (32-36); Mean Corpuscular Hgb 29.9 pg (27.0-32.0); Mean Corpuscular Volume 92.6 fL (80-94); Monocyte# 0.52 X10^3/uL; Monocyte% 5.8 % (0-10); NRBC Flagged by Analyzer 0 % (0-5); Neutrophil # 5.89 X10^3/uL (2.7-7.7); Neutrophil % 66.2 % (47-70); Platelet Count 207 K/mm3 (150-450); RBC Distribution Width CV 13.9 % (11.6-14.6); RBC Distribution Width SD 47.1 fl (35.1-43.9); Red Blood Count 4.08 M/mm3 (4.6-6.2); White Blood Count 8.9 K/mm3 (4.4-11.0)
[2022-12-04 03:30] LABS: Anion Gap 6 (5-15); BUN 7 mg/dL (7-18); Calcium,Total 8.5 mg/dL (8.5-10.1); Chloride 105 mmol/L (98-107); Creatinine, Serum 0.77 mg/dL (0.70-1.30); EST Glomerular Filtration Rate 117 mL/min (>60); Est Glom Filt Rate - Afr Amer 142 mL/min (>60); Glucose 102 mg/dL (74-106); Potassium 3.5 mmol/L (3.5-5.1); Sodium Level 143 mmol/L (136-145)
[2022-12-04 03:31] LABS: BNP,B-Type NATRIURETIC PEPTIDE 14.2 pg/mL (0-100)
--- NOTE | 2022-12-04 03:59 | EDS_ITS ---
HPI History of Present Illness Chief Complaint: Cellulitis Narrative Narrative: Patient is a 42-year-old male with past medical history of morbid obesity psoriasis asthma/COPD requiring chronic supplemental oxygen and lymphedema. He states that he has noticed his legs have been more swollen as of recently and he feels they are slightly discolored. He also reports he feels like there is some swelling into his lower abdomen with redness there as well concerning for cellulitis which she states he has had in the past with similar symptoms. He denies any fevers or chills and states he has not required any increase to his chronic oxygen. However he has concern for developing infection with this comes in for evaluation. [facility] Medical History (Updated 12/04/22 @ 04:[address] Dex Velasco, DO) Acute respiratory failure with hypoxia Alcohol use Ambulates with cane Asthma Back pain Bronchitis Cellulitis Chewing tobacco use Chronic acquired lymphedema COPD (chronic obstructive pulmonary disease) CPAP (continuous positive airway pressure) dependence Degeneration of intervertebral disc of lumbosacral region Depression Diabetes Fatty liver History of edema HTN (hypertension) Influenza A Loose, teeth Morbid obesity On home oxygen therapy ANTONIO (obstructive sleep apnea) Psoriasis Radiculopathy of lumbosacral region Restless legs Seizures Tobacco dependence syndrome Home Medications cyclobenzaprine 10 mg tablet 10 mg PO TID muscle relaxer 08/07/16 [History Last Taken 05/17/22] gabapentin 600 mg tablet 600 mg PO TIDCM neuropathy 08/07/16 [History Last Taken 05/17/22] oxycodone 5 mg tablet 15 mg PO TID PRN Pain 08/07/16 [History Last Taken 05/17/22] duloxetine 20 mg capsule,delayed release (Cymbalta) 20 mg PO DAILY depression 12/29/17 [History Last Taken 05/17/22] furosemide 40 mg tablet 80 mg PO DAILY water pill 12/29/17 [History Last Taken 05/17/22] metoprolol succinate 25 mg tablet,extended release 24 hr 25 mg PO BID heart 12/29/17 [History Last Taken 05/17/22] dicyclomine 10 mg capsule 20 mg PO TIDAC Pain 08/27/19 [History Last Taken 05/17/22] albuterol sulfate 2.5 mg/3 mL (0.083 %) solution for nebulization 2.5 mg (3 mL) inhalation Q4H PRN Sob &/Or Wheezing #180 mL 01/09/20 [Rx Last Taken 05/17/22] albuterol sulfate 90 mcg/actuation breath activated powder inhaler (ProAir RespiClick) 2 inh inhalation Q4H PRN shortness of breath or wheezing #1 ea 01/09/20 [Rx Last Taken 05/17/22] metformin 500 mg tablet,extended release 24 hr 500 mg PO BID 08/07/20 [History Last Taken 05/17/22] montelukast 10 mg tablet 10 mg PO QPM #30 tabs 05/09/21 [Rx Last Taken 05/17/22] tiotropium bromide 2.5 mcg/actuation mist for inhalation (Spiriva Respimat) 2 puff inhalation QHS #4 grams 11/12/21 [Rx Last Taken 05/17/22] Symbicort 160 mcg-4.5 mcg/actuation HFA aerosol inhaler (budesonide-formoterol) 2 puff inhalation BID #10.2 grams 11/13/21 [Rx Last Taken 05/17/22] cetirizine 10 mg capsule (Zyrtec) 10 mg PO HS 05/13/22 [History Last Taken 05/17/22] loperamide 2 mg capsule (Imodium A-D) 4 mg PO Q4H PRN PRN Diarrhea 05/13/22 [History Last Taken 05/17/22] clindamycin HCl 300 mg capsule 300 mg PO 4X/DAY 10 days #40 caps 12/04/22 [Rx Last Taken Unknown] clindamycin HCl 300 mg capsule (Cleocin HCl) 300 mg PO 4X/DAY 10 days #40 CAPSULES 12/04/22 [Rx Last Taken Unknown] Allergy/AdvReac Type Severity Reaction Status Date / Time No Known Allergies Allergy Verified 12/04/22 00:25 Family History Other No pertinent family history Surgical History History of back surgery No pertinent past surgical history Social History Smoking Status: Never smoker alcohol intake: former ROS ROS ED Constitutional Constitutional ED: Denies chills or fever(s) ENT ENT ED: Denies sore throat Cardiovascular Cardiovascular: Reports other Details: Positive edema ; Denies chest pain Respiratory/Chest Respiratory/Chest: Denies cough or dyspnea Gastrointestinal Gastrointestinal: Denies abdominal pain, diarrhea, nausea or vomiting Genitourinary Genitourinary ED: Denies dysuria Musculoskeletal Musculoskeletal: Reports myalgias Integumentary Reports rash Neurologic Neurologic: Denies headache(s) Hematologic/Lymphatic Hematologic/Lymphatic: Denies easy bleeding or easy bruising EXAM Physical Exam Const Vital Signs: 12/04/22 00:23 12/04/22 03:12 12/04/22 04:06 Temperature 98.3 F Temperature Source Temporal Pulse Rate 71 70 64 Respiratory Rate 18 20 H 18 Blood Pressure 169/96 H 127/68 H 115/82 H Blood Pressure Mean 120 87 Pulse Ox 98 99 100 Oxygen Delivery Method Room Air Room Air Positive well nourished, well developed and obese General Appearance ED: well developed Nutritional Appearance: obese Eyes PERRL and EOMs intact bilaterally Neck supple and no JVD Resp normal respiratory effort and clear to auscultation bilaterally Resp Narrative: Breath sounds are diminished throughout but overall clear to auscultation without nasal flaring retractions tachypnea or accessory muscle use Cardio regular rate and regular rhythm Rate: other Other Details: Radial pulses are plus 2 out of 4 bilaterally are equal and symmetric GI normal to inspection, nondistended, normoactive bowel sounds, non-tender and non-distended GI Narrative: Abdomen is obese and there is faint erythema along the lower pannus with slight asymmetric warmth but no induration or fluctuance to suggest abscess no lymphangitic streaking no crepitance palpated to suggest necrotizing fasciitis. There is no pain on palpation either and there is no pulsatile mass or fluid wave. Auscultation: normoactive bowel sounds Palpation: soft Extremity Extremity Narrative: Patient has diffuse edema to the bilateral lower extremities with +2-3 pitting edema that is equal and symmetric. Patient has chronic stasis changes in psoriasis/eczema changes as well. There is faint erythema along the anterior aspects of bilateral lower legs also with faint warmth present concerning for developing cellulitis. There is no induration to suggest abscess no active drainage or lymphangitic streaking Neuro oriented x3 and CN's II-XII intact bilaterally Sensorium / Orientation: alert Psych mental status grossly normal Skin Skin Narrative: Soft tissue changes to the abdomen and legs as documented above consistent with chronic psoriasis/eczema and developing cellulitis MDM MDM MDM Narrative Medical decision making narrative: Patient presented to the ER hypertensive but does have a past medical history of this and otherwise with stable vitals. He is on oxygen but states he only needs to wear 1 to 2 L at rest and is not requiring increased to his baseline supplementation. He has no signs of congestive heart failure on exam such as JVD or fluid wave. His skin has secondary changes from psoriasis and eczema with apparent developing cellulitis in order to ensure there is no signs of systemic infection because of his diabetic status basic blood work was obtained. Labs revealed no leukocytosis or left shift no signs of acute kidney injury or severe electrolyte derangement and no changes to suggest DKA or HHS. Also has p atient had reported increased swelling he had concern for possible congestive heart failure exacerbation chest x-ray revealed no acute fluid overload changes and his proBNP is normal. There is possibility this could be secondary to a DVT but he does not have a history of this and he denies any recent travel or surgery or hormone use. Therefore at this time I cannot order a venous duplex to rule this out but I will order him one as an outpatient for the morning. As he is low risk for DVT/PE on exam I do not feel there is need for a D-dimer or administration of anticoagulation at this time. Patient was reassessed after his work-up was completed and he is resting comfortably and remains in no acute distress. Therefore we will start the patient on antibiotics secondary to developing cellulitis but he is otherwise safe for discharge History & Record Review Discussion w/independent historian: Patient Lab Data Attestation: I reviewed the patient's lab results. Labs: Laboratory Results - last 24 hr 12/04/22 12/04/22 12/04/22 03:10 03:10 03:10 WBC 8.9 RBC 4.08 L Hgb 12.2 L Hct 37.8 L MCV 92.6 MCH 29.9 MCHC 32.3 RDW Std Deviation 47.1 H RDW Coeff of Lizett 13.9 Plt Count 207 MPV 9.0 Immature Gran % (Auto) 0.600 Neut % (Auto) 66.2 Lymph % (Auto) 24.0 [place] % (Auto) 5.8 Eos % (Auto) 2.8 Baso % (Auto) 0.6 Absolute Neuts (auto) 5.9 Absolute Lymphs (auto) 2.13 Nucleated RBC % 0 Sodium 143 Potassium 3.5 Chloride 105 Carbon Dioxide 32.0 Anion Gap 6 BUN 7 Creatinine 0.77 Est GFR (MDRD) Af Amer 142 Est GFR (MDRD) Non-Af 117 BUN/Creatinine Ratio 9.0 L Glucose 102 Calcium 8.5 B-Natriuretic Peptide 14.2 Radiography Diagnostic Testing: Clinical Impression(s) from Imaging Studies Chest X-Ray 12/04/22 03:01 IMPRESSION: No radiographic evidence of acute cardiopulmonary disease. Electronically Signed: Matt Townsend MD at 4:13 EST Reading Location ID and State: [facility] / [place] Tel , Service support , Chest x-ray as interpreted by the emergency medicine physician reveals no acute infiltrate pneumothorax or pleural effusion Discharge Plan Triage Chief Complaint: Cellulitis ED Provider: Dex Velasco Dx/Rx/DC Orders Clinical Impression: Cellulitis, Peripheral edema, HTN (hypertension), Morbid obesity Instructions: Cellulitis Dc, ED Lymphedema Prescriptions: New clindamycin HCl 300 mg capsule 300 mg PO 4X/DAY 10 Days Qty: 40 0RF clindamycin HCl [Cleocin HCl] 300 mg capsule 300 mg PO 4X/DAY 10 Days Qty: 40 0RF No Action ProAir RespiClick 90 mcg/actuation aerosol powdr breath activated 2 inh INHALATION Q4H PRN (Reason: shortness of breath or wheezing) Qty: 1 6RF Rx Instructions: administer with spacer albuterol sulfate 2.5 mg /3 mL (0.083 %) solution for nebulization 2.5 mg INHALATION Q4H PRN (Reason: Sob &/Or Wheezing) Qty: 180 3RF budesonide-formoterol [Symbicort] 160-4.5 mcg/actuation HFA aerosol inhaler 2 puff INHALATION BID Qty: 10.2 3RF cyclobenzaprine 10 MG tablet 10 mg PO TID gabapentin 600 MG tablet 600 mg PO TIDCM oxycodone 5 MG tablet 15 mg PO TID PRN (Reason: Pain) furosemide 40 MG tablet 80 mg PO DAILY metoprolol succinate 25 MG tablet extended release 24 hr 25 mg PO BID duloxetine [Cymbalta] 20 MG capsule 20 mg PO DAILY dicyclomine 10 MG capsule 20 mg PO TIDAC metformin 500 MG tablet 500 mg PO BID loperamide [Imodium A-D] 2 MG capsule 4 mg PO Q4H PRN PRN (Reason: Diarrhea) Zyrtec 10 mg capsule 10 mg PO HS montelukast 10 mg tablet 10 mg PO QPM Qty: 30 3RF Spiriva Respimat 2.5 mcg/actuation mist 2 puff INHALATION QHS Qty: 4 3RF Other Ambulatory Orders: Venous Duplex US - Maximo Extrem (Stat) Facility: [facility] - Location: [facility] Ordered By: Dr. Dex Velasco Primary Care Provider: Luci Licona Referrals: Luci Licona DO [Primary Care Provider] - Activity Restrictions/Additional Instructions: Please take the clindamycin as directed to help resolve your cellulitis and return to the hospital to have your outpatient venous duplex study obtained secondary to your leg swelling. Your work-up today did not show any signs of congestive heart failure or derangement to your diabetes. If you have any further concerns please return to the ER for repeat evaluation Disposition Disposition: Home, Self Care Discharge Date/Time: 12/04/22 04:24
[2022-12-04] MEDS: Clindamycin HCl 150 MG Capsule 300 MG PO (04:03)
[2022-12-04 04:06] VITALS: BP 115/82; PULSE 64; RESP 18; O2SAT 100; BMI 74.8
== END 2022-12-04 04:24 | disposition home or self-care (01) ==
PROVIDERS: Emergency Provider Emergency Medicine; PCP Family Medicine; Visit Provider Emergency Medicine
DX: L03.116 Cellulitis of left lower limb (principal); E66.01 Morbid (severe) obesity due to excess calories; L03.115 Cellulitis of right lower limb; I10 Essential (primary) hypertension; G47.33 Obstructive sleep apnea (adult) (pediatric); K76.0 Fatty (change of) liver, not elsewhere classified; Z99.81 Dependence on supplemental oxygen
CPT/HCPCS: 71045; 80048; 83880; 85025; 99283; A4216

== ENCOUNTER → 2022-12-14 | Outpatient (CLI) | payer MEDICARE, MEDICAID, SELFPAY ==
--- NOTE | 2022-12-14 13:00 | VDLE_ITS ---
Reason For Study: Swelling RIGHT LEFT GSV is normal. GSV is normal. CFV is compressible, spontaneous, phasic, CFV is compressible, spontaneous, phasic, competent and demonstrates normal competent, and demonstrates normal augmentation. augmentation. FV is compressible, spontaneous, phasic, FV is compressible, spontaneous, phasic, competent and demonstrates normal competent and demonstrates normal augmentation. augmentation. POP V is compressible, spontaneous, phasic, POP V is compressible, spontaneous, phasic, competent and demonstrates normal competent and demonstrates normal augmentation. augmentation. T/P Trunk is compressible. T/P Trunk is compressible. PTV is compressible. PTV is compressible. RT PerV is compressible. LT PerV is compressible. Procedure This is a venous duplex using B-mode, color flow and spectral Doppler. Exam performed in department. The study was technically difficult. The study was technically limited. Relied on color doppler at distal thigh, unable to visualize prox and mid calf veins due to patient body habitus. A preliminary report was called and/or faxed to Dr. Licona. VL/Venous Duplex US - Maximo Extrem Interpretation Summary No evidence for acute deep venous thrombosis bilateral lower extremities with p atent and compressible bilateral great saphenous veins. The exam was noted to be technica lly difficult and limited. Patient body habitus Limited inspection Ordering Physician: Dex Velasco Referring Physician: Luci Licona Performed By: Rosie Garcia, RDCS, RVT
== END | disposition home or self-care (01) ==
LOC: CVS 12:59
PROVIDERS: PCP Family Medicine; Visit Provider Emergency Medicine
DX: R60.0 Localized edema (principal)
CPT/HCPCS: 93970

== ENCOUNTER 2023-02-06 19:34 | Emergency (ER) | payer MEDICARE, MEDICAID, SELFPAY ==
[2023-02-06 19:35] VITALS: BP 150/81; PULSE 89; RESP 24; TEMP 36.5; O2SAT 99; BMI 73.3
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
--- NOTE | 2023-02-06 20:58 | RAD_ITS ---
INDICATION: Low back pain after fall EXAMINATION/TECHNIQUE: X-RAY - XR Spine Lumbar 2 or 3 Views COMPARISON: 12/26/2015 FINDINGS: VERTEBRAE: L1 and L2 wedge deformities appear chronic. No obvious acute fracture. No spondylolisthesis. Straightening of the typical lumbar lordosis. No significant facet arthropathy. DISCS: Degenerative endplate disease and disc space loss at all levels. INCLUDED ABDOMEN: Included bowel gas pattern is non-obstructive. RAD/Lumbar Spine 2 or 3 Views IMPRESSION: No evidence of lumbar spinal fracture or spondylolisthesis. Old L1 and L2 wedge deformities. Electronically Signed: Radhames Eldridge MD at 21:29 EDT ,
[2023-02-06] MEDS: morphine 10 MG/ML Syringe IM (21:04)
[2023-02-06 22:07] VITALS: BP 139/81; PULSE 87; RESP 16; O2SAT 100
== END 2023-02-06 23:00 | disposition home or self-care (01) ==
PROVIDERS: Emergency Provider Emergency Medicine; PCP Family Medicine; Visit Provider Emergency Medicine
DX: M54.50 Low back pain, unspecified (principal); G89.29 Other chronic pain; F17.220 Nicotine dependence, chewing tobacco, uncomplicated; G47.33 Obstructive sleep apnea (adult) (pediatric); K76.0 Fatty (change of) liver, not elsewhere classified
CPT/HCPCS: 72100; 96372; 99284

== ENCOUNTER 2023-11-27 18:41 | Emergency (ER) | payer MEDICARE, MEDICAID, SELFPAY ==
[2023-11-27 18:42] VITALS: BP 159/94; PULSE 85; RESP 18; TEMP 37.3; O2SAT 96; BMI 70.6
--- NOTE | 2023-11-27 18:56 | EX.ED.DYSGE1 ---
HPI History of Present Illness Chief Complaint: Cellulitis Informant: patient Onset/Context/Timing Onset: Weeks Context: Gradual Onset Timing: Continuous Current Severity: Moderate Maximum Severity: Moderate Narrative Narrative: 43-year-old male history of chronic respiratory failure on 2 L of oxygen, COPD, diabetes, severe psoriasis and morbid obesity. Patient's had prior cellulitis on his lower extremities. He has developed a sore in his left lower leg in the last 3 to 4 weeks. He has been on doxycycline twice a day for the last 2 weeks that he said only getting worse. He sayings having discomfort in his left leg gets more red. He denies any fever or chills. He has never had a blood clot he has been worked up for those before. Prior similar symptoms: Yes Recent Illness/Hospitalization: No PFSH [facility] Medical History Ambulates with cane Asthma Back pain Chewing tobacco use Chronic acquired lymphedema COPD (chronic obstructive pulmonary disease) Degeneration of intervertebral disc of lumbosacral region Depression Diabetes Fatty liver HTN (hypertension) Loose, teeth Morbid obesity On home oxygen therapy ANTONIO (obstructive sleep apnea) Psoriasis Radiculopathy of lumbosacral region Restless legs Seizures Tobacco dependence syndrome Home Medications cyclobenzaprine 10 mg tablet 10 mg PO TID muscle relaxer 08/07/16 [History Last Taken 05/17/22] gabapentin 600 mg tablet 600 mg PO TIDCM neuropathy 08/07/16 [History Last Taken 05/17/22] oxycodone 5 mg tablet 15 mg PO TID PRN Pain 08/07/16 [History Last Taken 05/17/22] duloxetine 20 mg capsule,delayed release (Cymbalta) 20 mg PO DAILY depression 12/29/17 [History Last Taken 05/17/22] furosemide 40 mg tablet 80 mg PO DAILY water pill 12/29/17 [History Last Taken 05/17/22] metoprolol succinate 25 mg tablet,extended release 24 hr 25 mg PO BID heart 12/29/17 [History Last Taken 05/17/22] dicyclomine 10 mg capsule 20 mg PO TIDAC Pain 08/27/19 [History Last Taken 05/17/22] albuterol sulfate 2.5 mg/3 mL (0.083 %) solution for nebulization 2.5 mg (3 mL) inhalation Q4H PRN Sob &/Or Wheezing #180 mL 01/09/20 [Rx Last Taken 05/17/22] albuterol sulfate 90 mcg/actuation breath activated powder inhaler (ProAir RespiClick) 2 inh inhalation Q4H PRN shortness of breath or wheezing #1 ea 01/09/20 [Rx Last Taken 05/17/22] metformin 500 mg tablet,extended release 24 hr 500 mg PO BID 08/07/20 [History Last Taken 05/17/22] montelukast 10 mg tablet 10 mg PO QPM #30 tabs 05/09/21 [Rx Last Taken 05/17/22] tiotropium bromide 2.5 mcg/actuation mist for inhalation (Spiriva Respimat) 2 puff inhalation QHS #4 grams 11/12/21 [Rx Last Taken 05/17/22] Symbicort 160 mcg-4.5 mcg/actuation HFA aerosol inhaler (budesonide-formoterol) 2 puff inhalation BID #10.2 grams 11/13/21 [Rx Last Taken 05/17/22] cetirizine 10 mg capsule (Zyrtec) 10 mg PO HS 05/13/22 [History Last Taken 05/17/22] loperamide 2 mg capsule (Imodium A-D) 4 mg PO Q4H PRN PRN Diarrhea 05/13/22 [History Last Taken 05/17/22] clindamycin HCl 300 mg capsule 300 mg PO 4X/DAY 10 days #40 caps 12/04/22 [Rx Last Taken Unknown] clindamycin HCl 300 mg capsule (Cleocin HCl) 300 mg PO 4X/DAY 10 days #40 CAPSULES 12/04/22 [Rx Last Taken Unknown] clindamycin HCl 300 mg capsule 300 mg PO Q8H 10 days #30 caps 11/27/23 [Rx Last Taken Unknown] Allergy/AdvReac Type Severity Reaction Status Date / Time No Known Allergies Allergy Verified 11/27/23 18:42 Family History Mother Diabetes Father Diabetes Heart disease Surgical History History of back surgery Social History household members: none Smoking Status: Former smoker Smokeless tobacco user: chewing tobacco alcohol intake: former substance use type: does not use ROS ROS ED ROS Narrative Denies recent illness. Worsening redness left lower leg. Review of Systems ROS Unobtainable: Denies due to encephalopathy Constitutional Constitutional ED: Denies chills or fever(s) Eyes Eyes: Denies blurry vision ENT ENT ED: Denies ear pain Cardiovascular Cardiovascular: Denies chest pain Respiratory/Chest Respiratory/Chest: Reports other Details: Chronic respiratory failure on 2 to 4 L of oxygen. ; Denies cough Gastrointestinal Gastrointestinal: Denies abdominal pain, constipation, diarrhea, nausea or vomiting Genitourinary Genitourinary ED: Denies dysuria or hematuria Musculoskeletal Musculoskeletal: Denies arthralgias Integumentary Reports rash; Denies abscess Neurologic Neurologic: Denies headache(s) Psychiatric Psychiatric: Denies anxiety Endocrine Endocrinology: Denies cold intolerance Hematologic/Lymphatic Hematologic/Lymphatic: Reports none Allergic/Immunologic Allergic/Immunologic ED: Denies mouth swelling, tongue swelling or urticaria EXAM Physical Exam Narrative Exam Narrative: 43-year-old male vital signs are stable afebrile. He is morbidly obese and he is on chronic oxygen 3 L. His pulse ox is 96% on room air. He is afebrile and has a temperature 99.1. He does not look septic or toxic. He is in no distress. He is sitting upright in bed. No one else is present in the room. HEENT exam unremarkable. Neck nontender. Lungs clear to auscultation bilaterally. Heart regular rhythm rate about 85 no murmur. Chest wall nontender. Abdomen soft nontender. Moving all 4 extremities. He walked in. He has severe psoriasis on both lower extremities and upper extremities. The left anterior pelayo just below the knee above the ankle he has basically sloughing of the skin with clear fluid discharge. It is warm to the touch it is red. There is no streaks above his knee. There is no left inguinal adenopathy. Dorsi and plantarflexion is intact. Neurologically is awake and alert with no focal motor deficits. Const Vital Signs: 11/27/23 18:42 Temperature 99.1 F Temperature Source Temporal Pulse Rate 85 Respiratory Rate 18 Blood Pressure 159/94 H Blood Pressure Mean 115 Pulse Ox 96 Oxygen Delivery Method Nasal Cannula Oxygen Flow Rate (L/min) 3 Positive well nourished and well developed; Negative for cachectic, contractures or unkempt General Appearance ED: well developed and NAD; Negative for unkempt, cachectic, contractures, cyanotic, diaphoretic or pallor Nutritional Appearance: Negative for cachectic HEENT Reports moist mucous membranes; Denies dry mucous membranes Negative for trauma or tenderness Mouth ED: No dry mucous membranes Mouth: No dry mucous membranes Eyes PERRL and EOMs intact bilaterally General Eye ED: Negative for pale conjunctiva Neck no lymphadenopathy, supple and no JVD General: Negative for tenderness Lymph Lymphatic: Negative for other Chest Wall inspection of chest normal and palpation of chest normal Resp normal respiratory effort and clear to auscultation bilaterally Effort and Inspection: Negative for retractions Auscultation: Negative for rales, rhonchi or wheezes Cardio regular rate, regular rhythm, S1 normal heart sound, S2 normal heart sound and no murmurs Rate: Negative for bradycardia or tachycardic Rhythm: Negative for abnormal rhythm GI normal to inspection, nondistended, normoactive bowel sounds, non-tender, non-distended and no masses Inspection: Negative for abdominal distention Auscultation: normoactive bowel sounds Palpation: soft; Negative for tender, guarding or rebound tenderness present Back/Spine no CVA tenderness General Back: Negative for CVA tenderness Cervical Spine: Negative for cervical spine tenderness Thoracic Spine / Upper Back: Negative for thoracic spinal tenderness Lumbar Spine / Lower Back: Negative for lumbar spinal tenderness Extremity Negative for normal to inspection Extremity Narrative: Chronic lymphedema both lower extremities. Extremely large legs. Severe psoriasis on both lower extremities. On the left lower extremity there is sloughing of the skin. It is warm to the touch and red it may be secondary to cellulitis and could all be secondary to chronic lymphedema and the psoriasis. There is no lymphangitic streaking or inguinal lymphadenopathy. Dorsi and plantarflexion is intact bilaterally. He is able to ambulate. General Extremety ED: Yes edema and tenderness General Extremity: edema Neuro oriented x3 and CN's II-XII intact bilaterally Sensorium / Orientation: alert; Negative for orientation impaired, lethargic or stuporous Motor Exam: strength 5/5 throughout Psych mental status grossly normal Appearance: Negative for unkempt Attitude: No agitated Mood & Affect: Negative for depressed, anxious or tearful Skin no rashes or lesions noted and no wounds Skin Narrative: Wound left lower leg. Redness. Warm to touch. Tender. Weeping of clear fluid. Severe psoriasis. Severe chronic bilateral lymphedema. General Skin Exam: Negative for jaundice or pallor Lesions: No lesion noted Rashes: rashes noted Trauma: Negative for abrasion Wounds: wounds noted MDM MDM MDM Narrative Medical decision making narrative: 43-year-old male chronic medical history of respiratory failure on chronic oxygen, diabetes and psoriasis. May or may not have cellulitis on his left lower extremity. Discussed severe psoriasis. No wound on his left lower leg anterior pelayo. Screening labs are being obtained. Will be given an IV dose of clindamycin. Repeat exam patient is doing well at 8:45 PM. Reevaluation of his left leg shows no change. It is not worse. It is still red. Still severe psoriasis. It could be a cellulitis it could just be the psoriasis and irritation of the skin. He was given a dose of IV clindamycin here. Will change his antibiotic stop the doxycycline. Give him a prescription for clindamycin. Have him follow-up with his primary care physician. I did discuss with him to talk to his primary care physician to get a referral to the wound care center. Lab Data Attestation: I reviewed the patient's lab results. Lab results narrative: CBC normal white count of 10 H&H 12.5 and 38 which is his baseline. Platelets 257. Electrolytes show a gap of 4. Normal BUN and creatinine. Glucose 125. Labs: Laboratory Results - last 24 hr 11/27/23 19:15 WBC 10.7 RBC 4.30 L Hgb 12.5 L Hct 38.8 L MCV 90.2 MCH 29.1 MCHC 32.2 RDW Std Deviation 46.6 H RDW Coeff of Lizett 14.2 Plt Count 257 MPV 9.2 Immature Gran % (Auto) 0.300 Neut % (Auto) 76.8 H Lymph % (Auto) 14.4 L [place] % (Auto) 5.4 Eos % (Auto) 2.5 Baso % (Auto) 0.6 Absolute Neuts (auto) 8.2 H Absolute Lymphs (auto) 1.53 Nucleated RBC % 0 Sodium 139 Potassium 3.9 Chloride 104 Carbon Dioxide 31.0 Anion Gap 4 L BUN 12 Creatinine 0.75 Estim Creat Clear Calc 270.61 Est GFR (MDRD) Af Amer 146 Est GFR (MDRD) Non-Af 121 BUN/Creatinine Ratio 16.0 Glucose 125 H Calcium 8.9 Discharge Plan Triage Chief Complaint: Cellulitis ED Provider: Angel Grande Dx/Rx/DC Orders Clinical Impression: Family history of chronic respiratory failure, Cellulitis, History of psoriasis, History of diabetes mellitus Instructions: ED Cellulitis Prescriptions: New clindamycin HCl 300 mg capsule 300 mg PO Q8H 10 Days Qty: 30 0RF No Action ProAir RespiClick 90 mcg/actuation aerosol powdr breath activated 2 inh INHALATION Q4H PRN (Reason: shortness of breath or wheezing) Qty: 1 6RF Rx Instructions: administer with spacer albuterol sulfate 2.5 mg /3 mL (0.083 %) solution for nebulization 2.5 mg INHALATION Q4H PRN (Reason: Sob &/Or Wheezing) Qty: 180 3RF budesonide-formoterol [Symbicort] 160-4.5 mcg/actuation HFA aerosol inhaler 2 puff INHALATION BID Qty: 10.2 3RF cyclobenzaprine 10 MG tablet 10 mg PO TID gabapentin 600 MG tablet 600 mg PO TIDCM oxycodone 5 MG tablet 15 mg PO TID PRN (Reason: Pain) furosemide 40 MG tablet 80 mg PO DAILY metoprolol succinate 25 MG tablet extended release 24 hr 25 mg PO BID duloxetine [Cymbalta] 20 MG capsule 20 mg PO DAILY dicyclomine 10 MG capsule 20 mg PO TIDAC metformin 500 MG tablet 500 mg PO BID loperamide [Imodium A-D] 2 MG capsule 4 mg PO Q4H PRN PRN (Reason: Diarrhea) Zyrtec 10 mg capsule 10 mg PO HS clindamycin HCl 300 mg capsule 300 mg PO 4X/DAY 10 Days Qty: 40 0RF clindamycin HCl [Cleocin HCl] 300 mg capsule 300 mg PO 4X/DAY 10 Days Qty: 40 0RF montelukast 10 mg tablet 10 mg PO QPM Qty: 30 3RF Spiriva Respimat 2.5 mcg/actuation mist 2 puff INHALATION QHS Qty: 4 3RF Primary Care Provider: Luci Licona Referrals: Luci Licona, [Primary Care Provider] - As soon as possible (Follow-up with your primary care physician. Discussed with her getting a referral to the wound care center.) Wound,Center [Non-Staff] - As soon as possible Activity Restrictions/Additional Instructions: This may or may not be cellulitis. It could also just be irritation of the skin from the psoriasis and sore. Stop your doxycycline. Start the new antibiotic clindamycin which you will take 3 times a day for the next 10 days. Call and follow-up your primary care physician soon as possible. Discussed with her a referral to the wound care center. They can do wound care dressings and other procedures to possibly help your legs. I also gave you their number you can call them directly yourself. Disposition Disposition: Home, Self Care
[2023-11-27] MEDS: Clindamycin 900 MG/50 ML BAG 75 MG IV (19:21)
[2023-11-27 19:24] LABS: Absolute Lymphocyte Count 1.53 X10^3/uL (0.83-4.51); Absolute Neutrophil Count 8.2 X10^3/uL (2.0-7.7); Basophil# 0.06 X10^3/uL; Basophil% 0.6 % (0-1); Eosinophil# 0.27 X10^3/uL; Eosinophils% 2.5 % (0-5); Hematocrit 38.8 % (40-54); Hemoglobin 12.5 g/dL (13.0-16.5); Lymphocyte # 1.53 X10^3/ul (0.83-4.51); Lymphocyte % 14.4 % (19-41); Mean Corp Hgb Conc 32.2 g/dL (32-36); Mean Corpuscular Hgb 29.1 pg (27.0-32.0); Mean Corpuscular Volume 90.2 fL (80-94); Mean Platelet Vol. 9.2 fl (6.2-12.0); Monocyte# 0.57 X10^3/uL; Monocyte% 5.4 % (0-10); NRBC Flagged by Analyzer 0 % (0-5); Neutrophil # 8.19 X10^3/uL (2.7-7.7); Neutrophil % 76.8 % (47-70); Platelet Count 257 K/mm3 (150-450); RBC Distribution Width CV 14.2 % (11.6-14.6); RBC Distribution Width SD 46.6 fl (35.1-43.9); White Blood Count 10.7 K/mm3 (4.4-11.0)
--- OUTSIDE RECORDS SUMMARY | 2023-11-27 19:30 | XMS RPT_ITS | CCD ---
Author Name Unknown Address [address] [place] [address] Organization [facility] Care Team Providers Care Intermediate Designer Name Role Phone JANAK GIBBS, DR PINZON A Primary Care Physician DAYA RETANA, RADHA Menendez Attending Unavail able GODWINYS DO, DR ALBERTA Soto Primary Care Unavailable PAGE RETANA, PRINCESS Montoya Attending Unavailable JANAK DO, DR ALBERTA Soto Primary Care Unavailable DAYA RETANA, RADHA Menendez Attending Unavail able JANAK DO, DR ALBERTA Soto Primary Care Unavailable JANAK DO, DR ALBERTA Soto Primary Care Unavailable KIRSTEN RETANA, AUTUMN Attending Unavailable PRO RETANA, ALEX Mesa Attending Unavailable JANAK DO, DR ALBERTA Soto Primary Care Unavailable DAYA RETANA, RADHA Menendez Attending Unavail able GODWINYS DO, DR ALBERTA Soto Primary Care Unavailable GIGI GIBBS, ELIZABETH Attending Unavailable JANAK GIBBS, DR ALBERTA Soto Primary Care Unavailable Medications Current Medications Medication Drug Class(es) Dates Sig (Normalized) Sig (Original) 0.5 ML tirzepatide 10 MG/ML Auto-Injector [Mounjaro] (3 sources) Start: 10-29-2022 Mounjaro 5 mg/0.5 mL subcutaneous solution INJECT the contents OF 1 (ONE) pen under the skin once weekly DIRECTED Start Date: 10/29/22 Status: Ordered albuterol 0.83 mg/ml inhalation solution (6 sources) beta2-Adrenergic Agonist Start: 02-18-2022 take 1 dose by inhalation every six hours albuterol 2.5 mg/3 mL (0.083%) inhalation solution Dose : 2.5 mg = 3 mL, Inhalation, q6h, # 60 EA, 0 Refill(s) Start Date: 02/18/22 Status: Ordered albuterol 0.833 mg/ml / ipratropium bromide 0.167 mg/ml inhalation solution (7 sources) Anticholinergic, beta2-Adrenergic Agonist Start: 01-11-2022 take 1 dose by inhalation every four hours albuterol-ipratropiu m 2.5 mg-0.5 mg/3 mL inhalation solution Dose = 3 mL, Inhalation, q4h, # 60 EA, 0 Refill(s) Start Date: 01/11/22 Status: Ordered Alcohol Swabs (9 sources) Start: 08-12-2020 Alcohol Swabs See Instructions, 1 box, # 1 EA, 0 Refill(s), Pharmacy: [facility], 188, cm, 08/10/20 0:05:00 EST, Height, 243.6, kg, 08/10/20 0:05:00 EST, Dosing Weight Start Date: 08/12/20 Status: Ordered Blood Glucose Test Machine (9 sources) Start: 08-12-2020 Blood Glucose Test Machine See Instructions, Device as determined by insurance coverage, # 1 EA, 0 Refill(s), Pharmacy: [facility] #[facility], 188, cm, 08/10/20 0:05:00 EST, Height, 243.6, kg, 08/10/20 0:05:00 EST, Dosing Weight Start Date: 08/12/20 Status: Ordered cephalexin 500 mg oral tablet (2 sources) Cephalosporin Antibacterial Start: 02-03-2023 End: 02-08-2023 take 1 capsule by mouth four times daily Keflex use cephalexin Dose : 500 mg =, Oral, QID, X 5 day(s), # 20 cap(s), 0 Refill(s), 02/08/23 15:36:00 EDT, Lumbar back sprain Cellulitis, 261 Start Date: 02/03/23 Stop Date: 02/08/23 Status: Ordered clindamycin 150 mg oral capsule (1 source) Lincosamide Antibacterial Start: 07-19-2021 End: 07-29-2021 clindamycin 150 mg oral capsule Dose : 450 mg = 3 cap(s), Oral, q8h, X 10 day(s), # 90 cap(s), 0 Refill(s), 07/29/21 7:17:00 EDT, Fractured tooth Dental caries, 240 Start Date: 07/19/21 Stop Date: 07/29/21 Status: Ordered 24 hr cyclobenzaprine hydrochloride 15 mg extended release oral capsule (11 sources) Muscle Relaxant Start: 02-03-2023 End: 02-13-2023 cyclobenzaprine 15 mg oral capsule, extended release Dose : 30 mg = 2 cap(s), Oral, Daily, PRN PRN Muscle pain, X 10 day(s), # 10 cap(s), 0 Refill(s), 02/13/23 15:38:00 EDT Start Date: 02/03/23 Stop Date: 02/13/23 Status: Ordered Completed/Discontinued Medications Medication Drug Class(es) Dates Sig (Normalized) Sig (Original) acetaminophen 325 mg / HYDROcodone bitartrate 5 mg oral tablet (9 sources) Opioid Agonist Start: 10-26-2020 End: 10-29-2020 take 1 tablet by mouth every four hours as needed for pain [place] 325- 5 mg oral tablet Dose = 1 tab(s), Oral, q4h, PRN for pain, # 18 tab(s), 0 Refill(s), Lumbar strain, 243.6 Start Date: 10/26/20 Stop Date: 10/29/20 Status: Ordered potassium chloride 20 meq oral tablet (7 sources) Start: 01-11-2022 End: 01-18-2022 Potassium Chloride (Eqv-K-Tab) 20 mEq oral tablet, extended release Dose : 20 mEq = 1 tab(s), Oral, qDay, take with food, # 7 tab(s), 0 Refill(s) Start Date: 01/11/22 Stop Date: 01/18/22 Status: Ordered Problems Problem Classification Problem Date Documented Da te Episodic/Chronic Chronic obstructive pulmonary disease and bronchiectasis (2 sources) Acute exacerbation of chronic obstructive airways disease; Translations: [Chronic obstructive pulmonary disease with (acute) exacerbation] Onset: 01-11-2022 Chronic Diabetes mellitus without complication (7 sources) Type 2 diabetes mellitus without complication; Translations: [Type 2 diabetes mellitus without complications] Onset: 11-29-2022 Chronic Disorders of teeth and jaw (1 source) Dental caries; Translations: [Dental caries, unspecified] Onset: 07-19-2021 Episodic Essential hypertension (1 source) Essential hypertension; Translations: [Essential (primary) hypertension] Onset: 11-29-2022 Chronic Open wounds of extremities (1 source) Laceration of finger without foreign body; Translations: [Laceration without foreign body of unspecified finger without damage to nail, initial encounter] Onset: 06-11-2023 Episodic Other connective tissue disease (9 sources) Hand pain 03-01-2015 Episodic Results Test Name Value Interpretation Reference Range Facil ity Vital Signs Date Time Vital Sign Value Performing Clinician Faci lity 11-21-2023 03:41-0500 Blood Pressure Cuff Size ELIZABETH REICHRENTISH DO [facility] 11-21-2023 03:41-0500 Blood Pressure Location ELIZABETH REICHRENTISH DO [facility] 11-21-2023 03:41-0500 Body height 188 cm ELIZABETH REICHRENTISH DO [facility] 11-21-2023 03:41-0500 Body temperature 97.16 [degF] ELIZABETH REICHRENTISH DO [facility] 11-21-2023 03:41-0500 Body weight 250 kg ELIZABETH REICHRENTISH DO [facility] 11-21-2023 03:41-0500 Diastolic Blood Pressure Non-Invasive 82 mm[Hg] ELIZABETH REICHFIELD DO [facility] 11-21-2023 03:41-0500 Heart rate 69 /min ELIZABETH REICHRENTISH DO [facility] 11-21-2023 03:41-0500 Respiratory rate 22 /min ELIZABETH REICHRENTISH DO [facility] 11-21-2023 03:41-0500 Systolic Blood Pressure Non-Invasive 153 mm[Hg] ELIZABETH REICHFIELD DO [facility] 08-28-2023 20:07-0500 Body height 188 cm RADHA STAPLETON MD [facility] 08-28-2023 20:07-0500 Body temperature 97.7 [degF] RADHA STAPLETON MD [facility] 08-28-2023 20:07-0500 Body weight 250 kg RADHA STAPLETON MD [facility] 08-28-2023 20:07-0500 Diastolic Blood Pressure Non-Invasive 107 mm[Hg] RADHA STAPLETON MD [facility] 08-28-2023 20:07-0500 Heart rate 90 /min RADHA STAPLETON MD [facility] 08-28-2023 20:07-0500 Respiratory rate 20 /min RADHA STAPLETON MD [facility] 08-28-2023 20:07-0500 Systolic Blood Pressure Non-Invasive 174 mm[Hg] RADHA STAPLETON MD [facility] 06-11-2023 04:12-0400 Body temperature 98.24 [degF] PRINCESS ABEL MD [facility] 06-11-2023 04:12-0400 Diastolic Blood Pressure Non-Invasive 60 1 PRINCESS ABEL MD [facility] 06-11-2023 04:12-0400 Heart rate 82 /min PRINCESS ABEL MD [facility] 06-11-2023 04:12-0400 Respiratory rate 24 /min PRINCESS ABEL MD [facility] 06-11-2023 04:12-0400 Systolic Blood Pressure Non-Invasive 140 1 PRINCESS ABEL MD [facility] 02-06-2023 14:12-0400 Body height 188 cm ALEX MAST MD [facility] 02-06-2023 14:12-0400 Body temperature 98.24 [degF] ALEX MAST MD [facility] 02-06-2023 14:12-0400 Body weight 250 kg ALEX MAST MD [facility] 02-06-2023 14:12-0400 Diastolic Blood Pressure Non-Invasive 81 1 ALEX MAST MD [facility] 02-06-2023 14:12-0400 Heart rate 87 /min ALEX MAST MD [facility] 02-06-2023 14:12-0400 Respiratory rate 20 /min ALEX MAST MD [facility] 02-06-2023 14:12-0400 Systolic Blood Pressure Non-Invasive 141 1 ALEX MAST MD [facility] 02-03-2023 15:11-0400 Body height 188 cm RADHA STAPLETON MD [facility] 02-03-2023 15:11-0400 Body temperature 98.6 [degF] RADHA STAPLETON MD [facility] 02-03-2023 15:11-0400 Body weight 261 kg RADHA STAPLETON MD [facility] 02-03-2023 15:11-0400 Diastolic Blood Pressure Non-Invasive 90 1 RADHA STAPLETON MD [facility] 02-03-2023 15:11-0400 Heart rate 86 /min RADHA STAPLETON MD [facility] 02-03-2023 15:11-0400 Respiratory rate 24 /min RADHA STAPLETON MD [facility] 02-03-2023 15:11-0400 Systolic Blood Pressure Non-Invasive 162 1 RADHA STAPLETON MD [facility] 11-29-2022 18:30-0500 Body temperature 98.24 [degF] AUTUMN CURTIS MD [facility] 11-29-2022 18:30-0500 Diastolic Blood Pressure Non-Invasive 71 1 AUTUMN CURTIS MD [facility] 11-29-2022 18:30-0500 Heart rate 93 /min AUTUMN CURTIS MD [facility] 11-29-2022 18:30-0500 Respiratory rate 12 /min AUTUMN CURTIS MD [facility] 11-29-2022 18:30-0500 Systolic Blood Pressure Non-Invasive 148 1 AUTUMN CURTIS MD [facility] 11-29-2022 16:53-0500 Body temperature 99.86 [degF] AUTUMN CURTIS MD [facility] 11-29-2022 16:53-0500 Diastolic Blood Pressure Non-Invasive 86 1 AUTUMN CURTIS MD [facility] 11-29-2022 16:53-0500 Heart rate 103 /min AUTUMN CURTIS MD [facility] 11-29-2022 16:53-0500 Respiratory rate 18 /min AUTUMN CURTIS MD [facility] 11-29-2022 16:53-0500 Systolic Blood Pressure Non-Invasive 150 1 AUTUMN CURTIS MD [facility] 01-11-2022 03:01-0400 Heart rate 83 /min DR SEAN ABEL MD [facility] 01-11-2022 03:01-0400 Respiratory rate 16 /min DR SEAN ABEL MD [facility] 01-11-2022 02:35-0400 Heart rate 89 /min DR SEAN ABEL MD [facility] 01-11-2022 02:35-0400 Respiratory rate 20 /min DR SEAN ABEL MD [facility] 01-11-2022 02:31-0400 Body temperature 98.42 [degF] DR SEAN ABEL MD [facility] 01-11-2022 02:31-0400 Diastolic blood pressure 82 mm[Hg] DR SEAN ABEL MD [facility] 01-11-2022 02:31-0400 Heart rate 87 /min DR SEAN ABEL MD [facility] 01-11-2022 02:31-0400 Mean blood pressure 97 mm[Hg] DR SEAN ABEL MD [facility] 01-11-2022 02:31-0400 Respiratory rate 90 /min DR SEAN ABEL MD [facility] 01-11-2022 02:31-0400 Systolic blood pressure 126 mm[Hg] DR SEAN ABEL MD [facility] 08-08-2021 17:24-0400 Body height 188 cm STAR JULIAN MD [facility] 08-08-2021 17:24-0400 Body temperature 98.06 [degF] STAR JULIAN MD [facility] 08-08-2021 17:24-0400 Body weight 236.4 kg STAR JULIAN MD [facility] 08-08-2021 17:24-0400 diastolic 83 mm[Hg] STAR JULIAN MD [facility] 08-08-2021 17:24-0400 Heart rate 75 /min STAR JULIAN MD [facility] 08-08-2021 17:24-0400 Respiratory rate 24 /min STAR JULIAN MD [facility] 08-08-2021 17:24-0400 systolic 155 mm[Hg] STAR JULIAN MD [facility] 07-19-2021 07:03-0400 Body temperature 98.24 [degF] DR WES KIM MD [facility] 07-19-2021 07:03-0400 Body weight [address] WES KIM MD [facility] 07-19-2021 07:03-0400 Diastolic blood pressure 94 mm[Hg] DR WES KIM MD [facility] 07-19-2021 07:03-0400 Heart rate 97 /min DR WES KIM MD [facility] 07-19-2021 07:03-0400 Respiratory rate 18 /min DR WES KIM MD [facility] 07-19-2021 07:03-0400 Systolic blood pressure 160 mm[Hg] DR WES KIM MD [facility] Encounters Encounter Date Encounter Type Care Provider Facility Start: 11-21-2023 End: 11-21-2023 [facility] Start: 11-21-2023 End: 11-21-2023 Emergency department [facility] Start: 08-28-2023 End: 08-28-2023 Emergency department patient visit RADHA STAPLETON MD Facility:B Start: 08-28-2023 End: 08-28-2023 Emergency department patient visit RADHA STAPLETON MD [facility] Start: 06-11-2023 End: 06-11-2023 Emergency department patient visit PRINCESS ABEL MD Facility:B Start: 06-11-2023 End: 06-11-2023 Emergency department patient visit PRINCESS ABEL MD [facility] Start: 02-24-2023 End: 02-24-2023 Emergency department patient visit RADHA STAPLETON MD Facility:B Start: 02-06-2023 End: 02-06-2023 Emergency department patient visit ALEX MAST MD Facility:B Start: 02-06-2023 End: 02-06-2023 Emergency department patient visit ALEX MAST MD [facility] Start: 02-03-2023 End: 02-03-2023 Emergency department patient visit RADHA STAPLETON MD Facility:B Start: 02-03-2023 End: 02-03-2023 Emergency department patient visit RADHA STAPLETON MD [facility] Start: 11-29-2022 End: 11-29-2022 Emergency department patient visit DR ALBERTA BRICENO DO Facility:B Start: 11-29-2022 End: 11-29-2022 Emergency department patient visit AUTUMN CURTIS MD [facility] Start: 01-11-2022 End: 01-11-2022 Emergency department patient visit DR SEAN ABEL [facility] Start: 08-08-2021 End: 08-08-2021 Emergency department patient visit STAR JULIAN MD [facility] Start: 07-19-2021 End: 07-19-2021 Emergency department patient visit DR WES KIM MD [facility] Procedures Date Procedure Procedure Detail Performing Clinician None (qualifier value) DR KARINA KIM MD Immunizations Immunization Date Immunization Notes Care Provider Fa [facility] 03-01-2015 tetanus and diphther ia toxoids, adsorbed, preservative free, for adult use (2 Lf of tetanus toxoid and 2 Lf of diphtheria toxoid) DR WES KIM MD [facility] Payers Date Payer Category Payer Private Health Insurance [id number] 2022 Medicaid [id number] 2022 Medicare [id number] 1980 Unknown [id number] 1981 Unknown [id number] [id number] 1981 Unknown [id number] [id number] [id number] 1981 Unknown [id number] [id number] [id number] 1981 Unknown [id number] [id number] [id number] 1981 Unknown [id number] [id number] [id number] 1981 Unknown [id number] [id number] Social History Date Type Detail Facility Start: 08-05-2018 End: 10-29-2022 Light tobacco smoker (finding) [facility] Tobacco smoking status Ex-smoker (finding ) [facility] Procedure Code Equipment Code Equipment Origin al Text Equipment Identifier Dates Blood Glucose Te st Strips Start: 08-12-2020 Lancets Start: 08-12-[address] Strips Start: 08-12-2020 Lancets Start: 08-12-2020 See Instructions , Testing blood glucose TID. 1 bottle of 100 strips, # 1 EA, 0 Refill(s), Pharmacy: [facility], 188, cm, 08/10/20 0:05:00 EST, Height, 243.6, kg, 08/10/20 0:05:00 EST, Dosing Weight Start: 08-12-2020 See Instructions , Testing blood glucose TID.1 box, # 1 EA, 0 Refill(s), Pharmacy: [facility], 188, cm, 08/10/20 0:05:00 EST, Height, 243.6, kg, 08/10/20 0:05:00 EST, Dosing Weight Start: 08-12-2020 See Instructions , Testing blood glucose TID. 1 bottle of 100 strips, # 1 EA, 0 Refill(s), Pharmacy: [facility], 188, cm, 08/10/20 0:05:00 EST, Height, 243.6, kg, 08/10/20 0:05:00 EST, Dosing Weight Start: 08-12-2020 See Instructions , Testing blood glucose TID.1 box, # 1 EA, 0 Refill(s), Pharmacy: [facility], 188, cm, 08/10/20 0:05:00 EST, Height, 243.6, kg, 08/10/20 0:05:00 EST, Dosing Weight Start: 08-12-2020 See Instructions , Testing blood glucose TID. 1 bottle of 100 strips, # 1 EA, 0 Refill(s), Pharmacy: [facility], 188, cm, 08/10/20 0:05:00 EST, Height, 243.6, kg, 08/10/20 0:05:00 EST, Dosing Weight Start: 08-12-2020 See Instructions , Testing blood glucose TID.1 box, # 1 EA, 0 Refill(s), Pharmacy: [facility], 188, cm, 08/10/20 0:05:00 EST, Height, 243.6, kg, 08/10/20 0:05:00 EST, Dosing Weight Start: 08-12-2020 See Instructions , Testing blood glucose TID. 1 bottle of 100 strips, # 1 EA, 0 Refill(s), Pharmacy: [facility], 188, cm, 08/10/20 0:05:00 EST, Height, 243.6, kg, 08/10/20 0:05:00 EST, Dosing Weight Start: 08-12-2020 See Instructions , Testing blood glucose TID.1 box, # 1 EA, 0 Refill(s), Pharmacy: [facility], 188, cm, 08/10/20 0:05:00 EST, Height, 243.6, kg, 08/10/20 0:05:00 EST, Dosing Weight Start: 08-12-2020 See Instructions , Testing blood glucose TID. 1 bottle of 100 strips, # 1 EA, 0 Refill(s), Pharmacy: [facility], 188, cm, 08/10/20 0:05:00 EST, Height, 243.6, kg, 08/10/20 0:05:00 EST, Dosing Weight Start: 08-12-2020 See Instructions , Testing blood glucose TID.1 box, # 1 EA, 0 Refill(s), Pharmacy: [facility], 188, cm, 08/10/20 0:05:00 EST, Height, 243.6, kg, 08/10/20 0:05:00 EST, Dosing Weight Start: 08-12-2020 See Instructions , Testing blood glucose TID. 1 bottle of 100 strips, # 1 EA, 0 Refill(s), Pharmacy: [facility], 188, cm, 08/10/20 0:05:00 EST, Height, 243.6, kg, 08/10/20 0:05:00 EST, Dosing Weight Start: 08-12-2020 See Instructions , Testing blood glucose TID.1 box, # 1 EA, 0 Refill(s), Pharmacy: [facility], 188, cm, 08/10/20 0:05:00 EST, Height, 243.6, kg, 08/10/20 0:05:00 EST, Dosing Weight Start: 08-12-2020 See Instructions , Testing blood glucose TID. 1 bottle of 100 strips, # 1 EA, 0 Refill(s), Pharmacy: [facility] #[facility], 188, cm, 08/10/20 0:05:00 EST, Height, 243.6, kg, 08/10/20 0:05:00 EST, Dosing Weight Start: 08-12-2020 See Instructions , Testing blood glucose TID.1 box, # 1 EA, 0 Refill(s), Pharmacy: [facility] #[facility], 188, cm, 08/10/20 0:05:00 EST, Height, 243.6, kg, 08/10/20 0:05:00 EST, Dosing Weight Start: 08-12-2020 Functional Status Date Assessment Result Facility 11-21-[address] [facility] 11-21-2023 Functional Status Standard Safet y ID band on, Call device within reach, Bed in low position, Wheels locked, Upper/Half-Length side-rails up, Phone within reach, Safety level maintained [facility] 08-28-[address] [facility] 06-11-2023 Functional Status Assistive Device None A [facility] 02-06-[address] [facility] 02-03-2023 Functional Status Up ad [facility] 11-29-[address] [facility] 11-29-2022 Functional Status Standard Safet y ID band on, Call device within reach, Bed in low position, Wheels locked, Safety level maintained [facility] 01-11-[address] [facility] 01-11-[address] [facility] Mental Status Date Assessment Result Facility 11-21-2023 Mental Status Orientation Oriented x 4 [facility] 11-21-2023 Mental Status [facility] 08-28-2023 Mental Status Orientation Oriented x 4 [facility] 06-11-2023 Mental Status Oriented x 4 [facility] 02-06-2023 Mental Status Orientation Oriented x 4 [facility] 02-03-2023 Mental Status Oriented x 4 [facility] 11-29-2022 Mental Status Orientation Oriented x 4 [facility] 01-11-2022 Mental Status [facility] 01-11-2022 Mental Status [facility] Clinical Notes 07-19-2021 to 11-21-2023 Note Date & Type Note Facility 11-21-2023 Note . MICRO - Microbiology PROCEDURE: Blood Culture (bacterial) [*1] SOURCE: Blood BODY SITE: COLLECTED DATE/TIME: 11/21/2023 03:49 EST RECEIVED DATE/TIME: 11/21/2023 13:23 EST START DATE/TIME: 11/21/2023 13:23 EST FREE TEXT SOURCE: PRELIMINARY REPORTS Preliminary Report [] Verified Date/Time/Personnel: 11/21/2023 13:59 EST Culture has been received in lab and is no growth to date. Routine cultures are held for 5 days. Performing Locations *1: This test was performed at: [facility], [address] [place] [address], [id number]- , [facility] ([place]) 11-21-2023 Note . MICRO - Microbiology PROCEDURE: Blood Culture (bacterial) [*1] SOURCE: Blood BODY SITE: COLLECTED DATE/TIME: 11/21/2023 03:49 EST RECEIVED DATE/TIME: 11/21/2023 13:23 EST START DATE/TIME: 11/21/2023 13:23 EST FREE TEXT SOURCE: PRELIMINARY REPORTS Preliminary Report [] Verified Date/Time/Personnel: 11/21/2023 13:59 EST Culture has been received in lab and is no growth to date. Routine cultures are held for 5 days. Performing Locations *1: This test was performed at: [facility], [address] [place] [address], [id number]- , [facility] ([place]) 11-21-2023 Hospital Discharge instructions Patient Education 11/21/2023 03:46:14 Back and Neck Pain, General General Neck and Back Pain Both neck and back pain are usually caused by injury to the muscles or ligaments of the spine. Sometimes the disks that separate each bone of the spine may cause pain by pressing on a nearby nerve. Back and neck pain may appear after a sudden twisting or bending force (such as in a car accident), or sometimes after a simple awkward movement. In either case, muscle spasm is often present and adds to the pain. Acute neck and back pain usually gets better in 1 to 2 weeks. Pain related to disk disease, arthritis in the spinal joints or spinal stenosis (narrowing of the spinal canal) can become chronic and last for months or years. Back and neck pain are common problems. Most people feel better in 1 or 2 weeks, and most of the rest in 1 to 2 months. Most people can remain active. People have and describe pain differently. Pain can be sharp, stabbing, shooting, aching, cramping, or burning Movement, standing, bending, lifting, sitting, or walking may worsen the pain Pain can be localized to one spot or area, or it can be more generalized Pain can spread or radiate upwards, downwards, to the front, or go down your arms Muscle spasm may occur. Most of the time mechanical problems with the muscles or spine cause the pain. it is usually caused by an injury, whether known or not, to the muscles or ligaments. While illnesses can cause back pain, it is usually not caused by a serious illness. Pain is usually related to physical activity, whether sports, exercise, work, or normal activity. Sometimes it can occur without an identifiable cause. This can happen simply by stretching or moving wrong, without noting pain at the time. Other causes include: Overexertion, lifting, pushing, pulling incorrectly or too aggressively. Sudden twisting, bending or stretching from an accident (car or fall), or accidental movement. Poor posture Poor conditioning, lack of regular exercise Spinal disc disease or arthritis Stress , or illness like appendicitis, bladder or kidney infection, pelvic infections Home care For neck pain: Use a comfortable pillow that supports the head and keeps the spine in a neutral position. The position of the head should not be tilted forward or backward. When in bed, try to find a position of comfort. A firm mattress is best. Try lying flat on your back with pillows under your knees. You can also try lying on your side with your knees bent up towards your chest and a pillow between your knees. At first, do not try to stretch out the sore spots. If there is a strain, it is not like the good soreness you get after exercising without an injury. In this case, stretching may make it worse. Don't sit for long periods, as in long car rides or other travel. This puts more stress on the lower back than standing or walking. During the first 24 to 72 hours after an injury, apply an ice pack to the painful area for 20 minutes and then remove it for 20 minutes over a period of 60 to 90 minutes or several times a day. You can alternate ice and heat therapies. Talk with your healthcare provider about the best treatment for your back or neck pain. As a safety precaution, do not use a heating pad at bedtime. Sleeping with a heating pad can lead to skin gentile or tissue damage. Therapeutic massage can help relax the back and neck muscles without stretching them. Be aware of safe lifting methods and do not lift anything over 15 pounds until all the pain is gone. Medicines Talk to your healthcare provider before using medicine, especially if you have other medical problems or are taking other medicines. You may use emmr-kor-kdovhsw medicine to control pain, unless another pain medicine was prescribed. If you have chronic conditions like diabetes, liver or kidney disease, stomach ulcers, gastrointestinal bleeding, or are taking blood thinner medicines. Be careful if you are given pain medicines, narcotics, or medicine for muscle spasm. They can cause drowsiness, and can affect your coordination, reflexes, and judgment. Do not drive or operate heavy machinery. Follow-up care Follow up with your healthcare provider, or as advised. Physical therapy or further tests may be needed. If X-rays were taken, you will be notified of any new findings that may affect your care. Call 911 Call 911 if any of the following occur: Trouble breathing Confusion Very drowsy or trouble awakening Fainting or loss of consciousness Rapid or very slow heart rate Loss of bowel or bladder control When to seek medical advice Call your healthcare provider right away if any of these occur: Pain becomes worse or spreads into your arms or legs Weakness, numbness or pain in one or both arms or legs Numbness in the groin area Difficulty walking Fever of 100.4 F (38 C) or higher, or as directed by your healthcare provider [id number] [employer]. [address] [place] [id number]. All rights reserved. This information is not intended as a substitute for professional medical care. Always follow your healthcare professional's instructions. 11/21/2023 03:46:10 Cellulitis Skin Infection Cellulitis Cellulitis is an infection of the deep layers of skin. A break in the skin, such as a cut or scratch, can let bacteria under the skin. If the bacteria get to deep layers of the skin, it can be serious. If not treated, cellulitis can get into the bloodstream and lymph nodes. The infection can then spread throughout the body. This causes serious illness. Cellulitis causes the affected skin to become red, swollen, warm, and sore. The reddened areas have a visible border. An open sore may leak fluid (pus). You may have a fever, chills, and pain. Cellulitis is treated with antibiotics taken for 7 to 10 days. An open sore may be cleaned and covered with cool wet gauze. Symptoms should get better 1 to 2 days after treatment is started. Make sure to take all the antibiotics for the full number of days until they are gone. Keep taking the medicine even if your symptoms go away. Home care Follow these tips: Limit the use of the part of your body with cellulitis. If the infection is on your leg, keep your leg raised while sitting. This will help to reduce swelling. Take all of the antibiotic medicine exactly as directed until it is gone. Do not miss any doses, especially during the first 7 days. Don t stop taking the medicine when your symptoms get better. Keep the affected area clean and dry. Wash your hands with soap and warm water before and after touching your skin. Anyone else who touches your skin should also wash his or her hands. Don't share towels. Follow-up care Follow up with your healthcare provider, or as advised. If your infection does not go away on the first antibiotic, your healthcare provider will prescribe a different one. When to seek medical advice Call your healthcare provider right away if any of these occur: Red areas that spread Swelling or pain that gets worse Fluid leaking from the skin (pus) Fever higher of 100.4 F (38.0 C) or higher after 2 days on antibiotics [id number] [employer]. [address] [place] [address]. All rights reserved. This information is not intended as a substitute for professional medical care. Always follow your healthcare professional's instructions. Follow Up Care 11/21/2023 03:31:20 With:Gladys W[facility] [phone] [place] [id number] Address:Unknown When:2-4 days With:Go to emergency room if symptoms worsen Address:Unknown When:2-4 days With:ALBERTA BRICENO DO Address: [address] [place] [phone]- When:2-4 days [facility] 11-21-2023 Note Discharge Instructions Thank you for allowing [facility] to assist you with your healthcare needs. The following is important discharge information regarding your hospital visit. Diagnosis from Today's Visit Back pain Cellulitis Cellulitis of leg What to Do Next Instructions from Your Care Team Take doxycycline as prescribed for lower left lower extremity wound/cellulitis. Follow-up with your primary care provider. Follow-up with wound care. Keep wound clean and dry. Return the emergency department immediately if you develop worsening symptoms, increased redness, fevers, or any other care concern. No qualifying data available. Post Acute Orders No qualifying data available. You Need to Schedule the Following Appointments Follow Up with Gladys Wound [facility] [phone] [place] [id number] When Within 2-4 days Follow Up with Go to emergency room if symptoms worsen When Within 2-4 days Follow Up with ALBERTA BRICENO DO When Within 2-4 days Where: [address] [place] [phone]- Allergies NKA Medications Please ask your primary doctor or pharmacist before taking any other medication not listed, including over the counter drugs, herbal medications, vitamins and or supplements as they may interact with your home medications. What How Much When Why Instructions Last Dose New doxycycline (doxycycline hyclate 100 mg oral capsule) 1 cap by mouth Every 12 hours Duration: 10 Days Printed Prescription Unchanged acetaminophen-hydrocodone ([place] 325- 5 mg oral tablet) 1 tab(s) by mouth Every 4 hours as needed for for pain Lumbar strain Duration: 3 Days Unchanged albuterol (albuterol 2.5 mg/ 3 mL (0.083%) inhalation solution) 3 Milliliter by inhalation Every 6 hours Unchanged albuterol-ipratropium (albuterol-ipratropium 2.5 mg-0.5 mg/ 3 mL inhalation solution) 3 Milliliter by inhalation Every 4 hours Unchanged cyclobenzaprine (Flexeril) by mouth Three (3) times a day Unchanged diclofenac topical (diclofenac 1% topical gel) 2 gram(s) Topical Four (4) times a day Back pain Muscle strain Unchanged DME (Alcohol Swabs) See instructions 1 box Unchanged DME (Blood Glucose Test Machine) See instructions Device as determined by insurance coverage Unchanged DME (Blood Glucose Test Strips) See instructions Testing blood glucose TID. 1 bottle of 100 strips Unchanged DME (Lancets) See instructions Testing blood glucose TID.1 box Unchanged DULoxetine (DULoxetine 30 mg oral delayed release capsule) 1 cap by mouth Once a day do not crush or chew Unchanged furosemide (furosemide 40 mg oral tablet) 1 tab(s) by mouth Once a day Unchanged gabapentin (gabapentin 600 mg oral tablet) 1 tab(s) by mouth Three (3) times a day Unchanged glipiZIDE (glipiZIDE 10 mg oral tablet, extended release) 1 tab(s) by mouth Once a day Unchanged ibuprofen (ibuprofen 800 mg oral tablet) 1 tab(s) by mouth Three (3) times a day Unchanged insulin detemir (Levemir) (Levemir 100 units/ mL 10 mL vial) 70 unit(s) Subcutaneous Daily at bedtime Unchanged lidocaine topical (Lidoderm 5% topical patch) 1 patch(es) Transdermal Once a day Unchanged metFORMIN (metFORMIN 500 mg oral tablet (IR)) 1 tab(s) by mouth Two (2) times a day Unchanged metFORMIN (metFORMIN 500 mg oral tablet (IR)) 1 tab(s) by mouth Two (2) times a day Hypertension Diabetes mellitus Unchanged metoprolol (Lopressor 25mg--USE metoprolol tartrate 25 mg oral tablet) 1 tab(s) by mouth Two (2) times a day TAKE 1 TABLET BY MOUTH TWICE A DAY Unchanged oxyCODONE (oxyCODONE 15 mg oral tablet ( extended release )) 1 tab(s) by mouth Four (4) times a day Unchanged potassium chloride (Potassium Chloride (Eqv-K-Tab) 20 mEq oral tablet, extended release) 1 tab(s) by mouth Once a day Duration: 7 Days take with food Unchanged tiotropium (Spiriva Respimat 60 ACT 2.5 mcg/ inh inhalation aerosol) 2 puff(s) by inhalation Once a day Unchanged tirzepatide (Mounjaro 5 mg/ 0.5 mL subcutaneous solution) INJECT the contents OF 1 (ONE) pen under the skin once weekly DIRECTED Unchanged tiZANidine (tiZANidine 2 mg oral tablet) 1 tab(s) by mouth Every 8 hours Back pain Please take this list to your next doctor s visit. Bring all medications you take, including over the counter medications, herbals and other supplements with you to your doctor s visit. Patients and families are reminded to discard old lists and to update any records with all medication providers or retail pharmacies. Education Materials General Neck and Back Pain Both neck and back pain are usually caused by injury to the muscles or ligaments of the spine. Sometimes the disks that separate each bone of the spine may cause pain by pressing on a nearby nerve. Back and neck pain may appear after a sudden twisting or bending force (such as in a car accident), or sometimes after a simple awkward movement. In either case, muscle spasm is often present and adds to the pain. Acute neck and back pain usually gets better in 1 to 2 weeks. Pain related to disk disease, arthritis in the spinal joints or spinal stenosis (narrowing of the spinal canal) can become chronic and last for months or years. Back and neck pain are common problems. Most people feel better in 1 or 2 weeks, and most of the rest in 1 to 2 months. Most people can remain active. People have and describe pain differently. Pain can be sharp, stabbing, shooting, aching, cramping, or burning Movement, standing, bending, lifting, sitting, or walking may worsen the pain Pain can be localized to one spot or area, or it can be more generalized Pain can spread or radiate upwards, downwards, to the front, or go down your arms Muscle spasm may occur. Most of the time mechanical problems with the muscles or spine cause the pain. it is usually caused by an injury, whether known or not, to the muscles or ligaments. While illnesses can cause back pain, it is usually not caused by a serious illness. Pain is usually related to physical activity, whether sports, exercise, work, or normal activity. Sometimes it can occur without an identifiable cause. This can happen simply by stretching or moving wrong, without noting pain at the time. Other causes include: Overexertion, lifting, pushing, pulling incorrectly or too aggressively. Sudden twisting, bending or stretching from an accident (car or fall), or accidental movement. Poor posture Poor conditioning, lack of regular exercise Spinal disc disease or arthritis Stress , or illness like appendicitis, bladder or kidney infection, pelvic infections Home care For neck pain: Use a comfortable pillow that supports the head and keeps the spine in a neutral position. The position of the head should not be tilted forward or backward. When in bed, try to find a position of comfort. A firm mattress is best. Try lying flat on your back with pillows under your knees. You can also try lying on your side with your knees bent up towards your chest and a pillow between your knees. At first, do not try to stretch out the sore spots. If there is a strain, it is not like the good soreness you get after exercising without an injury. In this case, stretching may make it worse. Don't sit for long periods, as in long car rides or other travel. This puts more stress on the lower back than standing or walking. During the first 24 to 72 hours after an injury, apply an ice pack to the painful area for 20 minutes and then remove it for 20 minutes over a period of 60 to 90 minutes or several times a day. You can alternate ice and heat therapies. Talk with your healthcare provider about the best treatment for your back or neck pain. As a safety precaution, do not use a heating pad at bedtime. Sleeping with a heating pad can lead to skin gentile or tissue damage. Therapeutic massage can help relax the back and neck muscles without stretching them. Be aware of safe lifting methods and do not lift anything over 15 pounds until all the pain is gone. Medicines Talk to your healthcare provider before using medicine, especially if you have other medical problems or are taking other medicines. You may use tgrv-kvh-soikykg medicine to control pain, unless another pain medicine was prescribed. If you have chronic conditions like diabetes, liver or kidney disease, stomach ulcers, gastrointestinal bleeding, or are taking blood thinner medicines. Be careful if you are given pain medicines, narcotics, or medicine for muscle spasm. They can cause drowsiness, and can affect your coordination, reflexes, and judgment. Do not drive or operate heavy machinery. Follow-up care Follow up with your healthcare provider, or as advised. Physical therapy or further tests may be needed. If X-rays were taken, you will be notified of any new findings that may affect your care. Call 911 Call 911 if any of the following occur: Trouble breathing Confusion Very drowsy or trouble awakening Fainting or loss of consciousness Rapid or very slow heart rate Loss of bowel or bladder control When to seek medical advice Call your healthcare provider right away if any of these occur: Pain becomes worse or spreads into your arms or legs Weakness, numbness or pain in one or both arms or legs Numbness in the groin area Difficulty walking Fever of 100.4 F (38 C) or higher, or as directed by your healthcare provider [phone] [employer]. [address] [place] [address]. All rights reserved. This information is not intended as a substitute for professional medical care. Always follow your healthcare professional's instructions. Cellulitis Cellulitis is an infection of the deep layers of skin. A break in the skin, such as a cut or scratch, can let bacteria under the skin. If the bacteria get to deep layers of the skin, it can be serious. If not treated, cellulitis can get into the bloodstream and lymph nodes. The infection can then spread throughout the body. This causes serious illness. Cellulitis causes the affected skin to become red, swollen, warm, and sore. The reddened areas have a visible border. An open sore may leak fluid (pus). You may have a fever, chills, and pain. Cellulitis is treated with antibiotics taken for 7 to 10 days. An open sore may be cleaned and covered with cool wet gauze. Symptoms should get better 1 to 2 days after treatment is started. Make sure to take all the antibiotics for the full number of days until they are gone. Keep taking the medicine even if your symptoms go away. Home care Follow these tips: Limit the use of the part of your body with cellulitis. If the infection is on your leg, keep your leg raised while sitting. This will help to reduce swelling. Take all of the antibiotic medicine exactly as directed until it is gone. Do not miss any doses, especially during the first 7 days. Don t stop taking the medicine when your symptoms get better. Keep the affected area clean and dry. Wash your hands with soap and warm water before and after touching your skin. Anyone else who touches your skin should also wash his or her hands. Don't share towels. Follow-up care Follow up with your healthcare provider, or as advised. If your infection does not go away on the first antibiotic, your healthcare provider will prescribe a different one. When to seek medical advice Call your healthcare provider right away if any of these occur: Red areas that spread Swelling or pain that gets worse Fluid leaking from the skin (pus) Fever higher of 100.4 F (38.0 C) or higher after 2 days on antibiotics [id number] [employer]. [address] [place] [address]. All rights reserved. This information is not intended as a substitute for professional medical care. Always follow your healthcare professional's instructions. Additional Information VACCINATE! IT SAVES LIVES! Members of the community who have not yet received the COVID-19 vaccine and would like to receive it can visit one of [facility] vaccine clinics. There are many vaccine clinic locations within the [facility]. For locations and available times, please visit [email or web address] It is important to note that some COVID mobile vaccine clinics are held outdoors and may be canceled in rainy or stormy conditions. To learn more about pediatric vaccinations (ages 5-11), we invite you to visit the [facility] webpage. [email or web address] To learn more about the COVID-19 vaccine, we invite you to visit the CDC website for a list of frequently asked questions. https://www.cdc.gov/coronavirus/ 2019-ncov/vaccines/faq.html [facility] Patient Portal Access Instructions: Stay connected with your healthcare team and access your personal medical information anytime with the [employer] Patient Portal. If you would like a full copy of your medical records please contact the [facility] Medical Records Department Wednesday through Wednesday between 8a.m. and 4:30p.m. Please follow the directions below to access the portal: 1.Access the email account you provided upon registration to the [facility].2.Look for an invitation email from [facility].3.Open the email and access the invitation link: Accept Invitation to [facility]4.Fill in the required fabian to create your account. Sign into www.[employer] with your username and password that you created in the above steps to stay up to date. You can then view a summary of results, a summary of your visits, and the ability to download your summaries to your computer or send the information securely to a physician. Remember that your healthcare information is confidential, so carefully consider who you will allow to register on the [employer] Patient Portal for access to your information. You can also access the [employer] Patient Portal on the [employer]. Simply click on Health Records under Health Data and then click on the [employer] logo. HOW TO SAFELY DISPOSE OF PRESCRIPTION MEDICATIONS Please use one of the following methods to safely dispose of your unused medications. 1.Use a drug disposal kit: the drug disposal pouch allows you to safely discard your old and unused drugs. Ask your nurse to give you one when you are discharged.2.Visit a local take-back location: Many local pharmacies and police departments have programs that collect old and unwanted prescription drugs. Call your local pharmacy or go to http://bit.NeurOp/0L4Yl8n to find one close to you.3.Make use of household items: Use cat litter or old coffee grounds to dispose medications if other options are not available. Mix your drugs with these household products, seal them in an airtight container and throw it into the garbage. Call [facility]: [phone] to be sure your drugs can be disposed of in this way. Some medicines may require a different approach.4.Never flush your medications down the toilet. IF YOU HAVE BEEN PRESCRIBED AN OPIOIDS FOR PAIN If you have been prescribed an opioid (such as hydrocodone, oxycodone or morphine), it is critical to understand the possible side effects and risks of opioid pain medications. Even when taken as directed, opioids can have several side effects including: Tolerance, meaning you might need to take more of a medication for the same pain relief. Nausea, vomiting and/or constipation. Sleepiness, dizziness, dry mouth, confusion, depression or itching. Physical dependence, meaning you have withdrawal symptoms when a medication is stopped ? this can develop within a few days. KNOW YOUR RESPONSIBILITIES It is important to know exactly how much and how often to take the opioid pain medications you are prescribed. Never take opioids in higher amounts or more often than prescribed. Do not combine opioids with alcohol or other drugs that cause drowsiness, such as benzodiazepines, also known as benzos, including diazepam and alprazolam, muscle relaxants or sleep aids. Never sell or share prescription opioids. This is illegal. Store opioids in a secure place and out of reach of others (including children, family, friends and visitors). The last page(s) of this document has been signed and retained as a CHART COPY Signatures Patient Education Materials Back and Neck Pain, General Cellulitis Skin Infection Medication Leaflets My discharge plan and instructions have been reviewed and explained to me and I,SASHA JACOBS II understand my current condition and have read and understand these discharge instructions. I have received a written copy of the plan/instructions. If I have questions, I am aware that I should contact my doctor. 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 Signature: Date/Time: Relationship to Patient: Witness Name/Signature: Date/Time: [facility] 08-28-2023 Hospital Discharge instructions Patient Education 08/28/2023 20:11:18 Cellulitis Skin Infection Cellulitis Cellulitis is an infection of the deep layers of skin. A break in the skin, such as a cut or scratch, can let bacteria under the skin. If the bacteria get to deep layers of the skin, it can be serious. If not treated, cellulitis can get into the bloodstream and lymph nodes. The infection can then spread throughout the body. This causes serious illness. Cellulitis causes the affected skin to become red, swollen, warm, and sore. The reddened areas have a visible border. An open sore may leak fluid (pus). You may have a fever, chills, and pain. Cellulitis is treated with antibiotics taken for 7 to 10 days. An open sore may be cleaned and covered with cool wet gauze. Symptoms should get better 1 to 2 days after treatment is started. Make sure to take all the antibiotics for the full number of days until they are gone. Keep taking the medicine even if your symptoms go away. Home care Follow these tips: Limit the use of the part of your body with cellulitis. If the infection is on your leg, keep your leg raised while sitting. This will help to reduce swelling. Take all of the antibiotic medicine exactly as directed until it is gone. Do not miss any doses, especially during the first 7 days. Don t stop taking the medicine when your symptoms get better. Keep the affected area clean and dry. Wash your hands with soap and warm water before and after touching your skin. Anyone else who touches your skin should also wash his or her hands. Don't share towels. Follow-up care Follow up with your healthcare provider, or as advised. If your infection does not go away on the first antibiotic, your healthcare provider will prescribe a different one. When to seek medical advice Call your healthcare provider right away if any of these occur: Red areas that spread Swelling or pain that gets worse Fluid leaking from the skin (pus) Fever higher of 100.4 F (38.0 C) or higher after 2 days on antibiotics [id number] [employer]. [address] [place] [address], [place] [address]. All rights reserved. This information is not intended as a substitute for professional medical care. Always follow your healthcare professional's instructions. Follow Up Care 08/28/2023 20:01:42 With:ALBERTA BRICENO DO Address: [address] [place] [address] [phone]- When:2-4 days [facility] 08-28-2023 Note Discharge Instructions Thank you for allowing [facility] to assist you with your healthcare needs. The following is important discharge information regarding your hospital visit. Diagnosis from Today's Visit Cellulitis Leg pain-swelling What to Do Next Instructions from Your Care Team No qualifying data available. Post Acute Orders No qualifying data available. You Need to Schedule the Following Appointments Follow Up with ALBERTA BRICENO DO When Within 2-4 days Where: [address] [place] [phone]- Allergies NKA Medications Please ask your primary doctor or pharmacist before taking any other medication not listed, including over the counter drugs, herbal medications, vitamins and or supplements as they may interact with your home medications. What How Much When Why Instructions Last Dose New doxycycline (doxycycline hyclate 100 mg oral capsule) 1 cap by mouth Two (2) times a day Duration: 10 Days Printed Prescription Unchanged acetaminophen-hydrocodone ([place] 325- 5 mg oral tablet) 1 tab(s) by mouth Every 4 hours as needed for for pain Lumbar strain Duration: 3 Days Unchanged albuterol (albuterol 2.5 mg/ 3 mL (0.083%) inhalation solution) 3 Milliliter by inhalation Every 6 hours Unchanged albuterol-ipratropium (albuterol-ipratropium 2.5 mg-0.5 mg/ 3 mL inhalation solution) 3 Milliliter by inhalation Every 4 hours Unchanged cyclobenzaprine (Flexeril) by mouth Three (3) times a day Unchanged diclofenac topical (diclofenac 1% topical gel) 2 gram(s) Topical Four (4) times a day Back pain Muscle strain Unchanged DME (Alcohol Swabs) See instructions 1 box Unchanged DME (Blood Glucose Test Machine) See instructions Device as determined by insurance coverage Unchanged DME (Blood Glucose Test Strips) See instructions Testing blood glucose TID. 1 bottle of 100 strips Unchanged DME (Lancets) See instructions Testing blood glucose TID.1 box Unchanged DULoxetine (DULoxetine 30 mg oral delayed release capsule) 1 cap by mouth Once a day do not crush or chew Unchanged furosemide (furosemide 40 mg oral tablet) 1 tab(s) by mouth Once a day Unchanged gabapentin (gabapentin 600 mg oral tablet) 1 tab(s) by mouth Three (3) times a day Unchanged glipiZIDE (glipiZIDE 10 mg oral tablet, extended release) 1 tab(s) by mouth Once a day Unchanged ibuprofen (ibuprofen 800 mg oral tablet) 1 tab(s) by mouth Three (3) times a day Unchanged insulin detemir (Levemir) (Levemir 100 units/ mL 10 mL vial) 70 unit(s) Subcutaneous Daily at bedtime Unchanged lidocaine topical (Lidoderm 5% topical patch) 1 patch(es) Transdermal Once a day Unchanged metFORMIN (metFORMIN 500 mg oral tablet (IR)) 1 tab(s) by mouth Two (2) times a day Unchanged metFORMIN (metFORMIN 500 mg oral tablet (IR)) 1 tab(s) by mouth Two (2) times a day Hypertension Diabetes mellitus Unchanged metoprolol (Lopressor 25mg--USE metoprolol tartrate 25 mg oral tablet) 1 tab(s) by mouth Two (2) times a day TAKE 1 TABLET BY MOUTH TWICE A DAY Unchanged oxyCODONE (oxyCODONE 15 mg oral tablet ( extended release )) 1 tab(s) by mouth Four (4) times a day Unchanged potassium chloride (Potassium Chloride (Eqv-K-Tab) 20 mEq oral tablet, extended release) 1 tab(s) by mouth Once a day Duration: 7 Days take with food Unchanged tiotropium (Spiriva Respimat 60 ACT 2.5 mcg/ inh inhalation aerosol) 2 puff(s) by inhalation Once a day Unchanged tirzepatide (Mounjaro 5 mg/ 0.5 mL subcutaneous solution) INJECT the contents OF 1 (ONE) pen under the skin once weekly DIRECTED Unchanged tiZANidine (tiZANidine 2 mg oral tablet) 1 tab(s) by mouth Every 8 hours Back pain Please take this list to your next doctor s visit. Bring all medications you take, including over the counter medications, herbals and other supplements with you to your doctor s visit. Patients and families are reminded to discard old lists and to update any records with all medication providers or retail pharmacies. Medication Leaflets doxycycline (oral/injection) (DOX i SYE kleen) Acticlate, Adoxa, Alodox, Avidoxy, Doryx, Doryx MPC, Lymepak, Mondoxyne NL, Monodox, Morgidox, Morgidox 7t013ve, Morgidox 2o429db, [place], Oracea, Targadox, Vibramycin, Vibramycin Monohydrate What is the most important information I should know about doxycycline? You should not take this medicine if you are allergic to any tetracycline antibiotic. Children younger than 8 years old should use doxycycline only in cases of severe or life-threatening conditions. This medicine can cause permanent yellowing or graying of the teeth in children Using doxycycline during could harm the unborn baby or cause permanent tooth discoloration later in the baby's life. What is doxycycline? Doxycycline is a tetracycline antibiotic that Doxycycline is used to treat many different bacterial infections, such as acne, urinary tract infections, intestinal infections, eye infections, gonorrhea, chlamydia, periodontitis (gum disease), and others. Doxycycline is also used to treat blemishes, bumps, and acne-like lesions caused by rosacea. Doxycycline will not treat facial redness caused by rosacea. Some forms of doxycycline are used to prevent malaria, to treat anthrax, or to treat infections caused by mites, ticks, or lice. Doxycycline may also be used for purposes not listed in this medication guide. What should I discuss with my healthcare provider before taking doxycycline? You should not take this medicine if you are allergic to doxycycline or other tetracycline antibiotics such as demeclocycline, minocycline, tetracycline, or tigecycline. Tell your doctor if you have ever had: liver disease; kidney disease; asthma or sulfite allergy; increased pressure inside your skull; or if you also take isotretinoin, seizure medicine, or a blood thinner such as warfarin (Coumadin). If you are using doxycycline to treat gonorrhea, your doctor may test you to make sure you do not also have syphilis, another sexually transmitted disease. Taking this medicine during may affect tooth and bone development in the unborn baby. Taking doxycycline during the last half of can cause permanent tooth discoloration later in the baby's life. Tell your doctor if you are or if you become . Doxycycline can make control pills less effective. Ask your doctor about using a non-hormonal control (condom, diaphragm with spermicide) to prevent . Doxycycline can pass into breast milk and may affect bone and tooth development in a nursing . Do not breastfeed while you are taking doxycycline. Doxycycline can cause permanent yellowing or graying of the teeth in children younger than 8 years old. Children should use doxycycline only in cases of severe or life-threatening conditions such as anthrax or [place] spotted fever. The benefit of treating a serious condition may outweigh any risks to the child's tooth development. How should I take doxycycline? Follow all directions on your prescription label and read all medication guides or instruction sheets. Use the medicine exactly as directed. Take doxycycline with a full glass of water. Drink plenty of liquids while you are taking doxycycline. Read and carefully follow any Instructions for Use provided with your medicine. Ask your doctor or pharmacist if you do not understand these instructions. Most brands of doxycyline may be taken with food or milk if the medicine upsets your stomach. Different brands of doxycycline may have different instructions about taking them with or without food. Take Oracea on an empty stomach, at least 1 hour before or 2 hours after a meal. You may need to split a doxycycline tablet to get the correct dose. Follow your doctor's instructions. Swallow a delayed-release capsule or tablet whole. Do not crush, chew, break, or open it. Measure liquid medicine with the dosing syringe provided, or with a special dose-measuring spoon or medicine cup. If you do not have a dose-measuring device, ask your pharmacist for one. If you take doxycycline to prevent malaria: Start taking the medicine 1 or 2 days before entering an area where malaria is common. Continue taking the medicine every day during your stay and for at least 4 weeks after you leave the area. Doxycycline is usually given by injection only if you are unable to take the medicine by mouth. A healthcare provider will give you this injection as an infusion into a vein. Use this medicine for the full prescribed length of time, even if your symptoms quickly improve. Skipping doses can increase your risk of infection that is resistant to medication. Doxycycline will not treat a viral infection such as the flu or a common cold. Store at room temperature away from moisture, heat, and light. Throw away any unused medicine after the expiration date on the label has passed. Using doxycycline can cause damage to your kidneys. What happens if I miss a dose? Take the medicine as soon as you can, but skip the missed dose if it is almost time for your next dose. Do not take two doses at one time. What happens if I overdose? Seek emergency medical attention or call the Poison Help line at . What should I avoid while taking doxycycline? Do not take iron supplements, multivitamins, calcium supplements, antacids, or laxatives within 2 hours before or after taking doxycycline. Avoid taking any other antibiotics with doxycycline unless your doctor has told you to. Doxycycline could make you sunburn more easily. Avoid sunlight or tanning beds. Wear protective clothing and use sunscreen (SPF 30 or higher) when you are outdoors. Antibiotic medicines can cause diarrhea, which may be a sign of a new infection. If you have diarrhea that is watery or bloody, call your doctor. Do not use anti-diarrhea medicine unless your doctor tells you to. What are the possible side effects of doxycycline? Get emergency medical help if you have signs of an allergic reaction (hives, difficult breathing, swelling in your face or throat) or a severe skin reaction (fever, sore throat, burning in your eyes, skin pain, red or purple skin rash that spreads and causes blistering and peeling). Seek medical treatment if you have a serious drug reaction that can affect many parts of your body. Symptoms may include: skin rash, fever, swollen glands, flu-like symptoms, muscle aches, severe weakness, unusual bruising, or yellowing of your skin or eyes. This reaction may occur several weeks after you began using doxycycline. Call your doctor at once if you have: severe stomach pain, diarrhea that is watery or bloody; throat irritation, trouble swallowing; chest pain, irregular heart rhythm, feeling short of breath; little or no urination; low white blood cell counts--fever, chills, swollen glands, body aches, weakness, pale skin, easy bruising or bleeding; increased pressure inside the skull--severe headaches, ringing in your ears, dizziness, nausea, vision problems, pain behind your eyes; or signs of liver or pancreas problems--loss of appetite, upper stomach pain (that may spread to your back), tiredness, nausea or vomiting, fast heart rate, dark urine, jaundice (yellowing of the skin or eyes). Common side effects may include: nausea, vomiting, upset stomach, loss of appetite; mild diarrhea; skin rash or itching; darkened skin color; or vaginal itching or discharge. This is not a complete list of side effects and others may occur. Call your doctor for medical advice about side effects. You may report side effects to FDA at 7-637-HJF-1029. What other drugs will affect doxycycline? Sometimes it is not safe to use certain medications at the same time. Some drugs can affect your blood levels of other drugs you take, which may increase side effects or make the medications less effective. Other drugs may affect doxycycline, including prescription and fwvs-tjg-bnhrhdk medicines, vitamins, and herbal products. Tell your doctor about all your current medicines and any medicine you start or stop using. Where can I get more information? Your pharmacist can provide more information about doxycycline. Remember, keep this and all other medicines out of the reach of children, never share your medicines with others, and use this medication only for the indication prescribed. Every effort has been made to ensure that the information provided by [employer] ('[employer]') is accurate, up-to-date, and complete, but no guarantee is made to that effect. Drug information contained herein may be time sensitive. [employer] information has been compiled for use by healthcare practitioners and consumers in the [place] and therefore [employer] does not warrant that uses outside of the [place] are appropriate, unless specifically indicated otherwise. [employer] drug information does not endorse drugs, diagnose patients or recommend therapy. [employer] drug information is an informational resource designed to assist licensed healthcare practitioners in caring for their patients and/or to serve consumers viewing this service as a supplement to, and not a substitute for, the expertise, skill, knowledge and judgment of healthcare practitioners. The absence of a warning for a given drug or drug combination in no way should be construed to indicate that the drug or drug combination is safe, effective or appropriate for any given patient. [employer] does not assume any responsibility for any aspect of healthcare administered with the aid of information [employer] provides. The information contained herein is not intended to cover all possible uses, directions, precautions, warnings, drug interactions, allergic reactions, or adverse effects. If you have questions about the drugs you are taking, check with your doctor, nurse or pharmacist. Copyright [employer] Version: 25.01. Revision Date: 06/09/2023. Education Materials Cellulitis Cellulitis is an infection of the deep layers of skin. A break in the skin, such as a cut or scratch, can let bacteria under the skin. If the bacteria get to deep layers of the skin, it can be serious. If not treated, cellulitis can get into the bloodstream and lymph nodes. The infection can then spread throughout the body. This causes serious illness. Cellulitis causes the affected skin to become red, swollen, warm, and sore. The reddened areas have a visible border. An open sore may leak fluid (pus). You may have a fever, chills, and pain. Cellulitis is treated with antibiotics taken for 7 to 10 days. An open sore may be cleaned and covered with cool wet gauze. Symptoms should get better 1 to 2 days after treatment is started. Make sure to take all the antibiotics for the full number of days until they are gone. Keep taking the medicine even if your symptoms go away. Home care Follow these tips: Limit the use of the part of your body with cellulitis. If the infection is on your leg, keep your leg raised while sitting. This will help to reduce swelling. Take all of the antibiotic medicine exactly as directed until it is gone. Do not miss any doses, especially during the first 7 days. Don t stop taking the medicine when your symptoms get better. Keep the affected area clean and dry. Wash your hands with soap and warm water before and after touching your skin. Anyone else who touches your skin should also wash his or her hands. Don't share towels. Follow-up care Follow up with your healthcare provider, or as advised. If your infection does not go away on the first antibiotic, your healthcare provider will prescribe a different one. When to seek medical advice Call your healthcare provider right away if any of these occur: Red areas that spread Swelling or pain that gets worse Fluid leaking from the skin (pus) Fever higher of 100.4 F (38.0 C) or higher after 2 days on antibiotics 0301-6762 [employer]. [address] [place] [address], [place] [id number]. All rights reserved. This information is not intended as a substitute for professional medical care. Always follow your healthcare professional's instructions. Additional Information VACCINATE! IT SAVES LIVES! Members of the community who have not yet received the COVID-19 vaccine and would like to receive it can visit one of [facility] vaccine clinics. There are many vaccine clinic locations within the [facility]. For locations and available times, please visit [email or web address] It is important to note that some COVID mobile vaccine clinics are held outdoors and may be canceled in rainy or stormy conditions. To learn more about pediatric vaccinations (ages 5-11), we invite you to visit the [facility] webpage. [email or web address] To learn more about the COVID-19 vaccine, we invite you to visit the CDC website for a list of frequently asked questions. https://www.cdc.gov/coronavirus/ 2019-ncov/vaccines/faq.html [employer] Patient Portal Access Instructions: Stay connected with your healthcare team and access your personal medical information anytime with the [employer] Patient Portal. If you would like a full copy of your medical records please contact the [facility] Medical Records Department Wednesday through Wednesday between 8a.m. and 4:30p.m. Please follow the directions below to access the portal: 1.Access the email account you provided upon registration to the hospital.2.Look for an invitation email from [facility].3.Open the email and access the invitation link: Accept Invitation to [employer]4.Fill in the required fabian to create your account. Sign into www.[employer] with your username and password that you created in the above steps to stay up to date. You can then view a summary of results, a summary of your visits, and the ability to download your summaries to your computer or send the information securely to a physician. Remember that your healthcare information is confidential, so carefully consider who you will allow to register on the [employer] Patient Portal for access to your information. You can also access the [employer] Patient Portal on the [employer]. Simply click on Health Records under Health Data and then click on the [employer] logo. HOW TO SAFELY DISPOSE OF PRESCRIPTION MEDICATIONS Please use one of the following methods to safely dispose of your unused medications. 1.Use a drug disposal kit: the drug disposal pouch allows you to safely discard your old and unused drugs. Ask your nurse to give you one when you are discharged.2.Visit a local take-back location: Many local pharmacies and police departments have programs that collect old and unwanted prescription drugs. Call your local pharmacy or go to http://Scholaroo.NeurOp/6N2Nm2h to find one close to you.3.Make use of household items: Use cat litter or old coffee grounds to dispose medications if other options are not available. Mix your drugs with these household products, seal them in an airtight container and throw it into the garbage. Call [facility]: [phone] to be sure your drugs can be disposed of in this way. Some medicines may require a different approach.4.Never flush your medications down the toilet. IF YOU HAVE BEEN PRESCRIBED AN OPIOIDS FOR PAIN If you have been prescribed an opioid (such as hydrocodone, oxycodone or morphine), it is critical to understand the possible side effects and risks of opioid pain medications. Even when taken as directed, opioids can have several side effects including: Tolerance, meaning you might need to take more of a medication for the same pain relief. Nausea, vomiting and/or constipation. Sleepiness, dizziness, dry mouth, confusion, depression or itching. Physical dependence, meaning you have withdrawal symptoms when a medication is stopped ? this can develop within a few days. KNOW YOUR RESPONSIBILITIES It is important to know exactly how much and how often to take the opioid pain medications you are prescribed. Never take opioids in higher amounts or more often than prescribed. Do not combine opioids with alcohol or other drugs that cause drowsiness, such as benzodiazepines, also known as benzos, including diazepam and alprazolam, muscle relaxants or sleep aids. Never sell or share prescription opioids. This is illegal. Store opioids in a secure place and out of reach of others (including children, family, friends and visitors). The last page(s) of this document has been signed and retained as a CHART COPY Signatures Patient Education Materials Cellulitis Skin Infection Medication Leaflets doxycycline (oral/injection) My discharge plan and instructions have been reviewed and explained to me and IREYNALDO II, TERRY K understand my current condition and have read and understand these discharge instructions. I have received a written copy of the plan/instructions. If I have questions, I am aware that I should contact my doctor. 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 Signature: Date/Time: Relationship to Patient: Witness Name/Signature: Date/Time: [facility] 06-11-2023 Hospital Discharge instructions Patient Education 06/11/2023 04:38:02 Laceration, Extremity: Suture, Staple, or Tape Extremity Laceration: Stitches, Kelli, or Tape A laceration is a cut through the skin. If it is deep, it may require stitches or kelli to close so it can heal. Minor cuts may be treated with surgical tape closures, or skin glue. X-rays may be done if something may have entered the skin through the cut. You may also need a tetanus shot if you are not up to date on this vaccine. Home care Follow the healthcare provider s instructions on how to care for the cut. Wash your hands with soap and warm water before and after caring for your wound. This is to help prevent infection. Keep the wound clean and dry. If a bandage was applied and it becomes wet or dirty, replace it. Otherwise, leave it in place for the first 24 hours, then change it once a day or as directed. If stitches or kelli were used, clean the wound daily: oAfter removing the bandage, wash the area with soap and water. Use a wet cotton swab to loosen and remove any blood or crust that forms. oAfter cleaning, keep the wound clean and dry. Talk with your healthcare provider before putting any antibiotic ointment on the wound. Reapply the bandage. You may remove the bandage to shower as usual after the first 24 hours, but don't soak the area in water (no swimming) until the stitches or kelli are removed. If surgical tape closures were used, keep the area clean and dry. If it becomes wet, blot it dry with a towel. Let the surgical tape fall off on its own. The healthcare provider may prescribe an antibiotic cream or ointment to prevent infection. He or she may also prescribe an antibiotic pill. Don't stop taking this medicine until you have finished it all or the provider tells you to stop. The provider may also prescribe medicine for pain. Follow the instructions for taking these medicines. Don't do activities that may reopen your wound. Follow-up care Follow up with your healthcare provider, or as advised. Most skin wounds heal within 10 days. But an infection may sometimes occur even with proper treatment. Check the wound daily for the signs of infection listed below. Stitches and kelli should be removed within 7 to14 days. If surgical tape closures were used, you may remove them after 10 days if they have not fallen off by then. When to seek medical advice Call your healthcare provider right away if any of these occur: Wound bleeding not controlled by direct pressure Signs of infection, including increasing pain in the wound, increasing wound redness or swelling, or pus or bad odor coming from the wound Fever of 100.4 F (38 C) or higher, or as directed by your healthcare provider Stitches or kelli come apart or fall out or surgical tape falls off before 7 days Wound edges reopen Wound changes colors Numbness occurs around the wound Decreased movement around the injured area 5033-6250 [employer]. [address] [place] [address]. All rights reserved. This information is not intended as a substitute for professional medical care. Always follow your healthcare professional's instructions. Follow Up Care 06/11/2023 04:11:52 With:ALBERTA BRICENO DO Address: [address] [place], [place] [id number]- When:2-4 days Comments:Make an appointment in 2 to 4 days with your physician. Return if you are worse in any way. [facility] 06-11-2023 Note Discharge Instructions Thank you for allowing [facility] to assist you with your healthcare needs. The following is important discharge information regarding your hospital visit. Diagnosis from Today's Visit Finger laceration Finger laceration What to Do Next Instructions from Your Care Team Keep the area clean and dry. Sutures out in 10 to 12 days. Wound check by your physician in 2 to 3 days. Watch for signs of infection, such as redness, red streaking, fever, or draining pus. Return if worse anyway. No qualifying data available. Post Acute Orders No qualifying data available. You Need to Schedule the Following Appointments Follow Up with ALBERTA BRICENO DO When Within 2-4 days Why: Make an appointment in 2 to 4 days with your physician. Return if you are worse in any way. Where: [address] [place] [id number]- Allergies NKA Medications Please ask your primary doctor or pharmacist before taking any other medication not listed, including over the counter drugs, herbal medications, vitamins and or supplements as they may interact with your home medications. What How Much When Why Instructions Last Dose Unchanged acetaminophen-hydrocodone ([place] 325- 5 mg oral tablet) 1 tab(s) by mouth Every 4 hours as needed for for pain Lumbar strain Duration: 3 Days Unchanged albuterol (albuterol 2.5 mg/ 3 mL (0.083%) inhalation solution) 3 Milliliter by inhalation Every 6 hours Unchanged albuterol-ipratropium (albuterol-ipratropium 2.5 mg-0.5 mg/ 3 mL inhalation solution) 3 Milliliter by inhalation Every 4 hours Unchanged cyclobenzaprine (Flexeril) by mouth Three (3) times a day Unchanged diclofenac topical (diclofenac 1% topical gel) 2 gram(s) Topical Four (4) times a day Back pain Muscle strain Unchanged DME (Alcohol Swabs) See instructions 1 box Unchanged DME (Blood Glucose Test Machine) See instructions Device as determined by insurance coverage Unchanged DME (Blood Glucose Test Strips) See instructions Testing blood glucose TID. 1 bottle of 100 strips Unchanged DME (Lancets) See instructions Testing blood glucose TID.1 box Unchanged DULoxetine (DULoxetine 30 mg oral delayed release capsule) 1 cap by mouth Once a day do not crush or chew Unchanged furosemide (furosemide 40 mg oral tablet) 1 tab(s) by mouth Once a day Unchanged gabapentin (gabapentin 600 mg oral tablet) 1 tab(s) by mouth Three (3) times a day Unchanged glipiZIDE (glipiZIDE 10 mg oral tablet, extended release) 1 tab(s) by mouth Once a day Unchanged ibuprofen (ibuprofen 800 mg oral tablet) 1 tab(s) by mouth Three (3) times a day Unchanged insulin detemir (Levemir) (Levemir 100 units/ mL 10 mL vial) 70 unit(s) Subcutaneous Daily at bedtime Unchanged lidocaine topical (Lidoderm 5% topical patch) 1 patch(es) Transdermal Once a day Unchanged metFORMIN (metFORMIN 500 mg oral tablet (IR)) 1 tab(s) by mouth Two (2) times a day Hypertension Diabetes mellitus Unchanged metFORMIN (metFORMIN 500 mg oral tablet (IR)) 1 tab(s) by mouth Two (2) times a day Unchanged metoprolol (Lopressor 25mg--USE metoprolol tartrate 25 mg oral tablet) 1 tab(s) by mouth Two (2) times a day TAKE 1 TABLET BY MOUTH TWICE A DAY Unchanged oxyCODONE (oxyCODONE 15 mg oral tablet ( extended release )) 1 tab(s) by mouth Four (4) times a day Unchanged potassium chloride (Potassium Chloride (Eqv-K-Tab) 20 mEq oral tablet, extended release) 1 tab(s) by mouth Once a day Duration: 7 Days take with food Unchanged tiotropium (Spiriva Respimat 60 ACT 2.5 mcg/ inh inhalation aerosol) 2 puff(s) by inhalation Once a day Unchanged tirzepatide (Mounjaro 5 mg/ 0.5 mL subcutaneous solution) INJECT the contents OF 1 (ONE) pen under the skin once weekly DIRECTED Unchanged tiZANidine (tiZANidine 2 mg oral tablet) 1 tab(s) by mouth Every 8 hours Back pain Please take this list to your next doctor s visit. Bring all medications you take, including over the counter medications, herbals and other supplements with you to your doctor s visit. Patients and families are reminded to discard old lists and to update any records with all medication providers or retail pharmacies. Education Materials Extremity Laceration: Stitches, Kelli, or Tape A laceration is a cut through the skin. If it is deep, it may require stitches or kelli to close so it can heal. Minor cuts may be treated with surgical tape closures, or skin glue. X-rays may be done if something may have entered the skin through the cut. You may also need a tetanus shot if you are not up to date on this vaccine. Home care Follow the healthcare provider s instructions on how to care for the cut. Wash your hands with soap and warm water before and after caring for your wound. This is to help prevent infection. Keep the wound clean and dry. If a bandage was applied and it becomes wet or dirty, replace it. Otherwise, leave it in place for the first 24 hours, then change it once a day or as directed. If stitches or kelli were used, clean the wound daily: oAfter removing the bandage, wash the area with soap and water. Use a wet cotton swab to loosen and remove any blood or crust that forms. oAfter cleaning, keep the wound clean and dry. Talk with your healthcare provider before putting any antibiotic ointment on the wound. Reapply the bandage. You may remove the bandage to shower as usual after the first 24 hours, but don't soak the area in water (no swimming) until the stitches or kelli are removed. If surgical tape closures were used, keep the area clean and dry. If it becomes wet, blot it dry with a towel. Let the surgical tape fall off on its own. The healthcare provider may prescribe an antibiotic cream or ointment to prevent infection. He or she may also prescribe an antibiotic pill. Don't stop taking this medicine until you have finished it all or the provider tells you to stop. The provider may also prescribe medicine for pain. Follow the instructions for taking these medicines. Don't do activities that may reopen your wound. Follow-up care Follow up with your healthcare provider, or as advised. Most skin wounds heal within 10 days. But an infection may sometimes occur even with proper treatment. Check the wound daily for the signs of infection listed below. Stitches and kelli should be removed within 7 to14 days. If surgical tape closures were used, you may remove them after 10 days if they have not fallen off by then. When to seek medical advice Call your healthcare provider right away if any of these occur: Wound bleeding not controlled by direct pressure Signs of infection, including increasing pain in the wound, increasing wound redness or swelling, or pus or bad odor coming from the wound Fever of 100.4 F (38 C) or higher, or as directed by your healthcare provider Stitches or kelli come apart or fall out or surgical tape falls off before 7 days Wound edges reopen Wound changes colors Numbness occurs around the wound Decreased movement around the injured area [phone] [employer]. [address] [place] [id number]. All rights reserved. This information is not intended as a substitute for professional medical care. Always follow your healthcare professional's instructions. Additional Information VACCINATE! IT SAVES LIVES! Members of the community who have not yet received the COVID-19 vaccine and would like to receive it can visit one of [facility] vaccine clinics. There are many vaccine clinic locations within the [facility]. For locations and available times, please visit [email or web address] It is important to note that some COVID mobile vaccine clinics are held outdoors and may be canceled in rainy or stormy conditions. To learn more about pediatric vaccinations (ages 5-11), we invite you to visit the [facility] webpage. [email or web address] To learn more about the COVID-19 vaccine, we invite you to visit the CDC website for a list of frequently asked questions. https://www.cdc.gov/coronavirus/ 2019-ncov/vaccines/faq.html [employer] Patient Portal Access Instructions: Stay connected with your healthcare team and access your personal medical information anytime with the [employer] Patient Portal. If you would like a full copy of your medical records please contact the [facility] Medical Records Department Wednesday through Wednesday between 8a.m. and 4:30p.m. Please follow the directions below to access the portal: 1.Access the email account you provided upon registration to the hospital.2.Look for an invitation email from [facility].3.Open the email and access the invitation link: Accept Invitation to [employer]4.Fill in the required fabian to create your account. Sign into www.[employer] with your username and password that you created in the above steps to stay up to date. You can then view a summary of results, a summary of your visits, and the ability to download your summaries to your computer or send the information securely to a physician. Remember that your healthcare information is confidential, so carefully consider who you will allow to register on the [employer] Patient Portal for access to your information. You can also access the [employer] Patient Portal on the [employer]. Simply click on Health Records under Health Data and then click on the [employer] logo. HOW TO SAFELY DISPOSE OF PRESCRIPTION MEDICATIONS Please use one of the following methods to safely dispose of your unused medications. 1.Use a drug disposal kit: the drug disposal pouch allows you to safely discard your old and unused drugs. Ask your nurse to give you one when you are discharged.2.Visit a local take-back location: Many local pharmacies and police departments have programs that collect old and unwanted prescription drugs. Call your local pharmacy or go to http://Scholaroo.NeurOp/6H6Nj4d to find one close to you.3.Make use of household items: Use cat litter or old coffee grounds to dispose medications if other options are not available. Mix your drugs with these household products, seal them in an airtight container and throw it into the garbage. Call [facility]: [phone] to be sure your drugs can be disposed of in this way. Some medicines may require a different approach.4.Never flush your medications down the toilet. IF YOU HAVE BEEN PRESCRIBED AN OPIOIDS FOR PAIN If you have been prescribed an opioid (such as hydrocodone, oxycodone or morphine), it is critical to understand the possible side effects and risks of opioid pain medications. Even when taken as directed, opioids can have several side effects including: Tolerance, meaning you might need to take more of a medication for the same pain relief. Nausea, vomiting and/or constipation. Sleepiness, dizziness, dry mouth, confusion, depression or itching. Physical dependence, meaning you have withdrawal symptoms when a medication is stopped ? this can develop within a few days. KNOW YOUR RESPONSIBILITIES It is important to know exactly how much and how often to take the opioid pain medications you are prescribed. Never take opioids in higher amounts or more often than prescribed. Do not combine opioids with alcohol or other drugs that cause drowsiness, such as benzodiazepines, also known as benzos, including diazepam and alprazolam, muscle relaxants or sleep aids. Never sell or share prescription opioids. This is illegal. Store opioids in a secure place and out of reach of others (including children, family, friends and visitors). The last page(s) of this document has been signed and retained as a CHART COPY Signatures Patient Education Materials Laceration, Extremity: Suture, Staple, or Tape Medication Leaflets My discharge plan and instructions have been reviewed and explained to me and I,SASHA JACOBS II understand my current condition and have read and understand these discharge instructions. I have received a written copy of the plan/instructions. If I have questions, I am aware that I should contact my doctor. 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 The exercises below will help strengthen the lower back. It is important that you begin exercising slowly and increase levels gradually. Always begin any exercise program with stretching. If you feel pain while doing any of these exercises, stop and talk to your doctor about a more specific exercise program that better suits your condition. Low back stretch The point of stretching is to make you more flexible and increase your range of motion. Stretch only as much as you are able. Stretch slowly. Do not push your stretch to the limit. If at any point you feel pain while stretching, this is your (temporary) limit. Lie on your back with your knees bent and both feet on the ground. Slowly raise your left knee to your chest as you flatten your lower back against the floor. Hold for 5 seconds. Relax and repeat the exercise with your right knee. Do 10 of these exercises for each leg. Repeat hugging both knees to your chest at the same time. Building lower back strength Start your exercise routine with 10 to 30 minutes a day, 1 to 3 times a day. Initial exercises Lying on your back: 1. Ankle pumps: Move your foot up and down, towards your head, and then away. Repeat 10 times with each foot. 2. Heel slides: Slowly bend your knee, drawing the heel of your foot towards you. Then slide your heel/foot from you, straightening your knee. Do not lift your foot off the floor (this is not a leg lift). 3. Abdominal contraction: Bend your knees and put your hands on your stomach. Tighten your stomach muscles. Hold for 5 seconds, then relax. Repeat 10 times. 4. Straight leg raise: Bend one leg at the knee and keep the other leg straight. Tighten your stomach muscles. Slowly lift your straight leg 6 to 12 inches off the floor and hold for up to 5 seconds. Repeat 10 times on each side. Standin. Wall squats: Stand with your back against the wall. Move your feet about 12 inches away from the wall. Tighten your stomach muscles, and slowly bend your knees until they are at about a 45 degree angle. Do not go down too far. Hold about 5 seconds. Then slowly return to your starting position. Repeat 10 times. 2. Heel raises: Stand facing the wall. Slowly raise the heels of your feet up and down, while keeping your toes on the floor. If you have trouble balancing, you can touch the wall with your hands. Repeat 10 times. More advanced exercises When you feel comfortable enough, try these exercises. 1. Kneeling lumbar extension: Begin on your hands and knees. At the same time, raise and straighten your right arm and left leg until they are parallel to the ground. Hold for 2 seconds and come back slowly to a starting position. Repeat with left arm and right leg, alternating 10 times. 2. Prone lumbar extension: Lie face down, arms extended overhead, palms on the floor. At the same time, raise your right arm and left leg as high as comfortably possible. Hold for 10 seconds and slowly return to start. Repeat with left arm and right leg, alternating 10 times. Gradually build up to 20 times. (Advanced: Repeat this exercise raising both arms and both legs a few inches off the floor at the same time. Hold for 5 seconds and release.) 3. Pelvic tilt: Lie on the floor on your back with your knees bent at 90 degrees. Your feet should be flat on the floor. Inhale, exhale, then slowly contract your abdominal muscles bringing your navel toward your spine. Let your pelvis rock back until your lower back is flat on the floor. Hold for 10 seconds while breathing smoothly. 4. Abdominal crunch: Perform a pelvic tilt (above) flattening your lower back against the floor. Holding the tension in your abdominal muscles, take another breath and raise your shoulder blades off the ground (this is not a full sit-up). Keep your head in line with your body (don t bend your neck forward). Hold for 2 seconds, then slowly lower. [phone] [employer] [place], [place] [id number]. All rights reserved. This information is not intended as a substitute for professional medical care. Always follow your healthcare professional's instructions. 02/06/2023 15:00:17 Back Exercises, Lumbar Exercises to Strengthen Your Lower Back Strong lower back and abdominal muscles work together to support your spine. The exercises below will help strengthen the lower back. It is important that you begin exercising slowly and increase levels gradually. Always begin any exercise program with stretching. If you feel pain while doing any of these exercises, stop and talk to your doctor about a more specific exercise program that better suits your condition. Low back stretch The point of stretching is to make you more flexible and increase your range of motion. Stretch only as much as you are able. Stretch slowly. Do not push your stretch to the limit. If at any point you feel pain while stretching, this is your (temporary) limit. Lie on your back with your knees bent and both feet on the ground. Slowly raise your left knee to your chest as you flatten your lower back against the floor. Hold for 5 seconds. Relax and repeat the exercise with your right knee. Do 10 of these exercises for each leg. Repeat hugging both knees to your chest at the same time. Building lower back strength Start your exercise routine with 10 to 30 minutes a day, 1 to 3 times a day. Initial exercises Lying on your back: 1. Ankle pumps: Move your foot up and down, towards your head, and then away. Repeat 10 times with each foot. 2. Heel slides: Slowly bend your knee, drawing the heel of your foot towards you. Then slide your heel/foot from you, straightening your knee. Do not lift your foot off the floor (this is not a leg lift). 3. Abdominal contraction: Bend your knees and put your hands on your stomach. Tighten your stomach muscles. Hold for 5 seconds, then relax. Repeat 10 times. 4. Straight leg raise: Bend one leg at the knee and keep the other leg straight. Tighten your stomach muscles. Slowly lift your straight leg 6 to 12 inches off the floor and hold for up to 5 seconds. Repeat 10 times on each side. Standin. Wall squats: Stand with your back against the wall. Move your feet about 12 inches away from the wall. Tighten your stomach muscles, and slowly bend your knees until they are at about a 45 degree angle. Do not go down too far. Hold about 5 seconds. Then slowly return to your starting position. Repeat 10 times. 2. Heel raises: Stand facing the wall. Slowly raise the heels of your feet up and down, while keeping your toes on the floor. If you have trouble balancing, you can touch the wall with your hands. Repeat 10 times. More advanced exercises When you feel comfortable enough, try these exercises. 1. Kneeling lumbar extension: Begin on your hands and knees. At the same time, raise and straighten your right arm and left leg until they are parallel to the ground. Hold for 2 seconds and come back slowly to a starting position. Repeat with left arm and right leg, alternating 10 times. 2. Prone lumbar extension: Lie face down, arms extended overhead, palms on the floor. At the same time, raise your right arm and left leg as high as comfortably possible. Hold for 10 seconds and slowly return to start. Repeat with left arm and right leg, alternating 10 times. Gradually build up to 20 times. (Advanced: Repeat this exercise raising both arms and both legs a few inches off the floor at the same time. Hold for 5 seconds and release.) 3. Pelvic tilt: Lie on the floor on your back with your knees bent at 90 degrees. Your feet should be flat on the floor. Inhale, exhale, then slowly contract your abdominal muscles bringing your navel toward your spine. Let your pelvis rock back until your lower back is flat on the floor. Hold for 10 seconds while breathing smoothly. 4. Abdominal crunch: Perform a pelvic tilt (above) flattening your lower back against the floor. Holding the tension in your abdominal muscles, take another breath and raise your shoulder blades off the ground (this is not a full sit-up). Keep your head in line with your body (don t bend your neck forward). Hold for 2 seconds, then slowly lower. [phone] [employer]. [address] [place] [address]. All rights reserved. This information is not intended as a substitute for professional medical care. Always follow your healthcare professional's instructions. Follow Up Care 02/06/2023 13:39:53 With:ALBERTA BRICENO DO Address: [address] [place] [phone]- When:2-4 days [facility] 02-06-2023 Note Discharge Instructions Thank you for allowing [facility] to assist you with your healthcare needs. The following is important discharge information regarding your hospital visit. Diagnosis from Today's Visit Back pain Muscle strain Back pain What to Do Next Instructions from Your Care Team Please make sure to follow-up with your primary care physician regarding your acute on chronic back pain. Continue using lidocaine patches and use diclofenac gel which is also [id number]. Make sure to perform low back exercises and avoid immobility which can worsen your back pain. No qualifying data available. Post Acute Orders No qualifying data available. You Need to Schedule the Following Appointments Follow Up with ALBERTA BRICENO DO When Within 2-4 days Where: [address] [place] [phone]- Allergies NKA Medications Please ask your primary doctor or pharmacist before taking any other medication not listed, including over the counter drugs, herbal medications, vitamins and or supplements as they may interact with your home medications. What How Much When Why Instructions Last Dose New diclofenac topical (diclofenac 1% topical gel) 2 gram(s) Topical Four (4) times a day Back pain Muscle strain Printed Prescription Unchanged acetaminophen-hydrocodone ([place] 325- 5 mg oral tablet) 1 tab(s) by mouth Every 4 hours as needed for for pain Lumbar strain Duration: 3 Days Unchanged albuterol (albuterol 2.5 mg/ 3 mL (0.083%) inhalation solution) 3 Milliliter by inhalation Every 6 hours Unchanged albuterol-ipratropium (albuterol-ipratropium 2.5 mg-0.5 mg/ 3 mL inhalation solution) 3 Milliliter by inhalation Every 4 hours Unchanged cephalexin (Keflex use cephalexin ) 500 Milligram by mouth Four (4) times a day Lumbar back sprain Cellulitis Duration: 5 Days Unchanged cyclobenzaprine (cyclobenzaprine 15 mg oral capsule, extended release) 2 cap by mouth Every day as needed for Muscle pain Duration: 10 Days Unchanged cyclobenzaprine (Flexeril) by mouth Three (3) times a day Unchanged DME (Alcohol Swabs) See instructions 1 box Unchanged DME (Blood Glucose Test Machine) See instructions Device as determined by insurance coverage Unchanged DME (Blood Glucose Test Strips) See instructions Testing blood glucose TID. 1 bottle of 100 strips Unchanged DME (Lancets) See instructions Testing blood glucose TID.1 box Unchanged DULoxetine (DULoxetine 30 mg oral delayed release capsule) 1 cap by mouth Once a day do not crush or chew Unchanged furosemide (furosemide 40 mg oral tablet) 1 tab(s) by mouth Once a day Unchanged gabapentin (gabapentin 600 mg oral tablet) 1 tab(s) by mouth Three (3) times a day Unchanged glipiZIDE (glipiZIDE 10 mg oral tablet, extended release) 1 tab(s) by mouth Once a day Unchanged ibuprofen (ibuprofen 800 mg oral tablet) 1 tab(s) by mouth Three (3) times a day Unchanged insulin detemir (Levemir) (Levemir 100 units/ mL 10 mL vial) 70 unit(s) Subcutaneous Daily at bedtime Unchanged lidocaine topical (Lidoderm 5% topical patch) 1 patch(es) Transdermal Once a day Unchanged metFORMIN (metFORMIN 500 mg oral tablet (IR)) 1 tab(s) by mouth Two (2) times a day Unchanged metFORMIN (metFORMIN 500 mg oral tablet (IR)) 1 tab(s) by mouth Two (2) times a day Hypertension Diabetes mellitus Unchanged metoprolol (Lopressor 25mg--USE metoprolol tartrate 25 mg oral tablet) 1 tab(s) by mouth Two (2) times a day TAKE 1 TABLET BY MOUTH TWICE A DAY Unchanged oxyCODONE (oxyCODONE 15 mg oral tablet ( extended release )) 1 tab(s) by mouth Four (4) times a day Unchanged potassium chloride (Potassium Chloride (Eqv-K-Tab) 20 mEq oral tablet, extended release) 1 tab(s) by mouth Once a day Duration: 7 Days take with food Unchanged tiotropium (Spiriva Respimat 60 ACT 2.5 mcg/ inh inhalation aerosol) 2 puff(s) by inhalation Once a day Unchanged tirzepatide (Mounjaro 5 mg/ 0.5 mL subcutaneous solution) INJECT the contents OF 1 (ONE) pen under the skin once weekly DIRECTED Unchanged tiZANidine (tiZANidine 2 mg oral tablet) 1 tab(s) by mouth Every 8 hours Back pain Please take this list to your next doctor s visit. Bring all medications you take, including over the counter medications, herbals and other supplements with you to your doctor s visit. Patients and families are reminded to discard old lists and to update any records with all medication providers or retail pharmacies. Medication Leaflets diclofenac topical (dye KLOE fen ak TOP ik al) Pennsaid, Rexaphenac, Solaraze, Voltaren Topical What is the most important information I should know about diclofenac topical? Diclofenac topical can increase your risk of fatal heart attack or stroke. Do not use this medicine just before or after heart bypass surgery (coronary artery bypass graft, or CABG). Diclofenac topical may also cause stomach or intestinal bleeding, which can be fatal. What is diclofenac topical? Diclofenac is a nonsteroidal anti-inflammatory drug (NSAID). Diclofenac topical (for the skin) is used to treat joint pain caused by osteoarthritis. This medicine is for use on the hands, wrists, elbows, knees, ankles, or feet. Diclofenac topical may not be effective in treating arthritis pain elsewhere in the body. Pennsaid is for use only on the knees. Solaraze is used to treat warty overgrowths of skin (actinic keratoses) on sun-exposed areas of the body. Diclofenac topical may also be used for purposes not listed in this medication guide. What should I discuss with my healthcare provider before using diclofenac topical? Diclofenac topical can increase your risk of fatal heart attack or stroke, even if you don't have any risk factors. Do not use this medicine just before or after heart bypass surgery (coronary artery bypass graft, or CABG). Diclofenac topical may also cause stomach or intestinal bleeding, which can be fatal. These conditions can occur without warning while you are using diclofenac topical, especially in older adults. You should not use this medicine if you are allergic to diclofenac (Voltaren, Cataflam, Flector, and others), or if you have ever had an asthma attack or severe allergic reaction after taking aspirin or an NSAID. Diclofenac topical is not approved for use by anyone younger than 18 years old. Tell your doctor if you have ever had: heart disease, high blood pressure, high cholesterol, diabetes, or if you smoke; a heart attack, stroke, or blood clot; stomach ulcers, bleeding in your stomach or intestines; asthma; liver or kidney disease; or fluid retention. Diclofenac can affect ovulation and it may be harder to get while you are using this medicine. If you are , you should not take diclofenac topical unless your doctor tells you to. Taking an NSAID during the last 20 weeks of can cause serious heart or kidney problems in the unborn baby and possible complications with your . It may not be safe to breastfeed while using this medicine. Ask your doctor about any risk. How should I use diclofenac topical? Follow all directions on your prescription label and read all medication guides. Use the lowest dose that is effective in treating your condition. Do not take by mouth. Topical medicine is for use only on the skin. Rinse with water if this medicine gets in your eyes or mouth. Read and carefully follow any Instructions for Use provided with your medicine. Ask your doctor or pharmacist if you do not understand these instructions. Do not apply diclofenac topical to an open skin wound, or on areas of infection, rash, burn, or peeling skin. Store at room temperature away from moisture and heat. Do not freeze. What happens if I miss a dose? Apply the medicine as soon as you can, but skip the missed dose if it is almost time for your next dose. Do not apply two doses at one time. What happens if I overdose? Seek emergency medical attention or call the Poison Help line at . What should I avoid while using diclofenac topical? Ask a doctor or pharmacist before using other medicines for pain, fever, swelling, or cold/flu symptoms. They may contain ingredients similar to diclofenac (such as aspirin, ibuprofen, ketoprofen, or naproxen). Avoid drinking alcohol. It may increase your risk of stomach bleeding. Avoid exposing treated skin to heat, sunlight, or tanning beds. Heat can increase the amount of diclofenac you absorb through your skin. Avoid getting this medicine in your eyes. If contact does occur, rinse with water. Call your doctor if you have eye irritation that lasts longer than 1 hour. Do not use cosmetics, sunscreen, lotions, insect repellant, or other medicated skin products on the same area you treat with diclofenac topical. What are the possible side effects of diclofenac topical? Get emergency medical help if you have signs of an allergic reaction (hives, sneezing, runny or stuffy nose, wheezing or trouble breathing, swelling in your face or throat) or a severe skin reaction (fever, sore throat, burning eyes, skin pain, red or purple skin rash with blistering and peeling). Stop using diclofenac and seek medical treatment if you have a serious drug reaction that can affect many parts of your body. Symptoms may include skin rash, fever, swollen glands, muscle aches, severe weakness, unusual bruising, or yellowing of your skin or eyes. Stop using diclofenac and seek emergency medical attention if you have signs of a heart attack or stroke: chest pain spreading to your jaw or shoulder, sudden numbness or weakness on one side of the body, slurred speech, feeling short of breath. Also call your doctor at once if you have: a skin rash, no matter how mild; swelling, rapid weight gain; severe headache, blurred vision, pounding in your neck or ears; little or no urination; liver problems--nausea, diarrhea, stomach pain (upper right side), tiredness, itching, dark urine, alex-colored stools, jaundice (yellowing of the skin or eyes); low red blood cells (anemia)--pale skin, unusual tiredness, feeling light-headed or short of breath, cold hands and feet; or signs of stomach bleeding--bloody or tarry stools, coughing up blood or vomit that looks like coffee grounds. Common side effects may include: heartburn, gas, stomach pain, nausea, vomiting; diarrhea, constipation; headache, dizziness, drowsiness; stuffy nose; itching, increased sweating; increased blood pressure; or skin redness, itching, dryness, scaling, or peeling where the medicine was applied. This is not a complete list of side effects and others may occur. Call your doctor for medical advice about side effects. You may report side effects to FDA at 0-988-AGQ-9404. What other drugs will affect diclofenac topical? Ask your doctor before using diclofenac if you take an antidepressant. Taking certain antidepressants with an NSAID may cause you to bruise or bleed easily. Tell your doctor about all your current medicines, especially: cyclosporine; lithium; methotrexate; a blood thinner (warfarin, Coumadin, Jantoven); heart or blood pressure medication, including a diuretic or 'water pill'; or steroid medicine (prednisone and others). This list is not complete and many other drugs may affect diclofenac. This includes prescription and ouok-ull-mpksoco medicines, vitamins, and herbal products. Not all possible drug interactions are listed here. Where can I get more information? Your pharmacist can provide more information about diclofenac topical. Remember, keep this and all other medicines out of the reach of children, never share your medicines with others, and use this medication only for the indication prescribed. Every effort has been made to ensure that the information provided by [employer] ('[employer]') is accurate, up-to-date, and complete, but no guarantee is made to that effect. Drug information contained herein may be time sensitive. [employer] information has been compiled for use by healthcare practitioners and consumers in the [place] and therefore [employer] does not warrant that uses outside of the [place] are appropriate, unless specifically indicated otherwise. [employer]'s drug information does not endorse drugs, diagnose patients or recommend therapy. [employer] drug information is an informational resource designed to assist licensed healthcare practitioners in caring for their patients and/or to serve consumers viewing this service as a supplement to, and not a substitute for, the expertise, skill, knowledge and judgment of healthcare practitioners. The absence of a warning for a given drug or drug combination in no way should be construed to indicate that the drug or drug combination is safe, effective or appropriate for any given patient. [employer] does not assume any responsibility for any aspect of healthcare administered with the aid of information [employer] provides. The information contained herein is not intended to cover all possible uses, directions, precautions, warnings, drug interactions, allergic reactions, or adverse effects. If you have questions about the drugs you are taking, check with your doctor, nurse or pharmacist. Copyright 0225-8778 [employer] Version: 12.. Revision Date: 02/05/2022. Education Materials Exercises to Strengthen Your Lower Back Strong lower back and abdominal muscles work together to support your spine. The exercises below will help strengthen the lower back. It is important that you begin exercising slowly and increase levels gradually. Always begin any exercise program with stretching. If you feel pain while doing any of these exercises, stop and talk to your doctor about a more specific exercise program that better suits your condition. Low back stretch The point of stretching is to make you more flexible and increase your range of motion. Stretch only as much as you are able. Stretch slowly. Do not push your stretch to the limit. If at any point you feel pain while stretching, this is your (temporary) limit. Lie on your back with your knees bent and both feet on the ground. Slowly raise your left knee to your chest as you flatten your lower back against the floor. Hold for 5 seconds. Relax and repeat the exercise with your right knee. Do 10 of these exercises for each leg. Repeat hugging both knees to your chest at the same time. Building lower back strength Start your exercise routine with 10 to 30 minutes a day, 1 to 3 times a day. Initial exercises Lying on your back: 1. Ankle pumps: Move your foot up and down, towards your head, and then away. Repeat 10 times with each foot. 2. Heel slides: Slowly bend your knee, drawing the heel of your foot towards you. Then slide your heel/foot from you, straightening your knee. Do not lift your foot off the floor (this is not a leg lift). 3. Abdominal contraction: Bend your knees and put your hands on your stomach. Tighten your stomach muscles. Hold for 5 seconds, then relax. Repeat 10 times. 4. Straight leg raise: Bend one leg at the knee and keep the other leg straight. Tighten your stomach muscles. Slowly lift your straight leg 6 to 12 inches off the floor and hold for up to 5 seconds. Repeat 10 times on each side. Standin. Wall squats: Stand with your back against the wall. Move your feet about 12 inches away from the wall. Tighten your stomach muscles, and slowly bend your knees until they are at about a 45 degree angle. Do not go down too far. Hold about 5 seconds. Then slowly return to your starting position. Repeat 10 times. 2. Heel raises: Stand facing the wall. Slowly raise the heels of your feet up and down, while keeping your toes on the floor. If you have trouble balancing, you can touch the wall with your hands. Repeat 10 times. More advanced exercises When you feel comfortable enough, try these exercises. 1. Kneeling lumbar extension: Begin on your hands and knees. At the same time, raise and straighten your right arm and left leg until they are parallel to the ground. Hold for 2 seconds and come back slowly to a starting position. Repeat with left arm and right leg, alternating 10 times. 2. Prone lumbar extension: Lie face down, arms extended overhead, palms on the floor. At the same time, raise your right arm and left leg as high as comfortably possible. Hold for 10 seconds and slowly return to start. Repeat with left arm and right leg, alternating 10 times. Gradually build up to 20 times. (Advanced: Repeat this exercise raising both arms and both legs a few inches off the floor at the same time. Hold for 5 seconds and release.) 3. Pelvic tilt: Lie on the floor on your back with your knees bent at 90 degrees. Your feet should be flat on the floor. Inhale, exhale, then slowly contract your abdominal muscles bringing your navel toward your spine. Let your pelvis rock back until your lower back is flat on the floor. Hold for 10 seconds while breathing smoothly. 4. Abdominal crunch: Perform a pelvic tilt (above) flattening your lower back against the floor. Holding the tension in your abdominal muscles, take another breath and raise your shoulder blades off the ground (this is not a full sit-up). Keep your head in line with your body (don t bend your neck forward). Hold for 2 seconds, then slowly lower. [id number] [employer] [address] [place] [address], [place] [address]. All rights reserved. This information is not intended as a substitute for professional medical care. Always follow your healthcare professional's instructions. Exercises to Strengthen Your Lower Back Strong lower back and abdominal muscles work together to support your spine. The exercises below will help strengthen the lower back. It is important that you begin exercising slowly and increase levels gradually. Always begin any exercise program with stretching. If you feel pain while doing any of these exercises, stop and talk to your doctor about a more specific exercise program that better suits your condition. Low back stretch The point of stretching is to make you more flexible and increase your range of motion. Stretch only as much as you are able. Stretch slowly. Do not push your stretch to the limit. If at any point you feel pain while stretching, this is your (temporary) limit. Lie on your back with your knees bent and both feet on the ground. Slowly raise your left knee to your chest as you flatten your lower back against the floor. Hold for 5 seconds. Relax and repeat the exercise with your right knee. Do 10 of these exercises for each leg. Repeat hugging both knees to your chest at the same time. Building lower back strength Start your exercise routine with 10 to 30 minutes a day, 1 to 3 times a day. Initial exercises Lying on your back: 1. Ankle pumps: Move your foot up and down, towards your head, and then away. Repeat 10 times with each foot. 2. Heel slides: Slowly bend your knee, drawing the heel of your foot towards you. Then slide your heel/foot from you, straightening your knee. Do not lift your foot off the floor (this is not a leg lift). 3. Abdominal contraction: Bend your knees and put your hands on your stomach. Tighten your stomach muscles. Hold for 5 seconds, then relax. Repeat 10 times. 4. Straight leg raise: Bend one leg at the knee and keep the other leg straight. Tighten your stomach muscles. Slowly lift your straight leg 6 to 12 inches off the floor and hold for up to 5 seconds. Repeat 10 times on each side. Standin. Wall squats: Stand with your back against the wall. Move your feet about 12 inches away from the wall. Tighten your stomach muscles, and slowly bend your knees until they are at about a 45 degree angle. Do not go down too far. Hold about 5 seconds. Then slowly return to your starting position. Repeat 10 times. 2. Heel raises: Stand facing the wall. Slowly raise the heels of your feet up and down, while keeping your toes on the floor. If you have trouble balancing, you can touch the wall with your hands. Repeat 10 times. More advanced exercises When you feel comfortable enough, try these exercises. 1. Kneeling lumbar extension: Begin on your hands and knees. At the same time, raise and straighten your right arm and left leg until they are parallel to the ground. Hold for 2 seconds and come back slowly to a starting position. Repeat with left arm and right leg, alternating 10 times. 2. Prone lumbar extension: Lie face down, arms extended overhead, palms on the floor. At the same time, raise your right arm and left leg as high as comfortably possible. Hold for 10 seconds and slowly return to start. Repeat with left arm and right leg, alternating 10 times. Gradually build up to 20 times. (Advanced: Repeat this exercise raising both arms and both legs a few inches off the floor at the same time. Hold for 5 seconds and release.) 3. Pelvic tilt: Lie on the floor on your back with your knees bent at 90 degrees. Your feet should be flat on the floor. Inhale, exhale, then slowly contract your abdominal muscles bringing your navel toward your spine. Let your pelvis rock back until your lower back is flat on the floor. Hold for 10 seconds while breathing smoothly. 4. Abdominal crunch: Perform a pelvic tilt (above) flattening your lower back against the floor. Holding the tension in your abdominal muscles, take another breath and raise your shoulder blades off the ground (this is not a full sit-up). Keep your head in line with your body (don t bend your neck forward). Hold for 2 seconds, then slowly lower. [id number] [employer]. [address] [place] [address]. All rights reserved. This information is not intended as a substitute for professional medical care. Always follow your healthcare professional's instructions. Additional Information VACCINATE! IT SAVES LIVES! Members of the community who have not yet received the COVID-19 vaccine and would like to receive it can visit one of [facility] vaccine clinics. There are many vaccine clinic locations within the [facility]. For locations and available times, please visit [email or web address] It is important to note that some COVID mobile vaccine clinics are held outdoors and may be canceled in rainy or stormy conditions. To learn more about pediatric vaccinations (ages 5-11), we invite you to visit the [facility] webpage. [email or web address] To learn more about the COVID-19 vaccine, we invite you to visit the CDC website for a list of frequently asked questions. https://www.cdc.gov/coronavirus/ 2019-ncov/vaccines/faq.html [employer] Patient Portal Access Instructions: Stay connected with your healthcare team and access your personal medical information anytime with the [employer] Patient Portal. If you would like a full copy of your medical records please contact the [facility] Medical Records Department Wednesday through Wednesday between 8a.m. and 4:30p.m. Please follow the directions below to access the portal: 1.Access the email account you provided upon registration to the [facility].2.Look for an invitation email from [facility].3.Open the email and access the invitation link: Accept Invitation to [employer]4.Fill in the required fabian to create your account. Sign into www.[employer] with your username and password that you created in the above steps to stay up to date. You can then view a summary of results, a summary of your visits, and the ability to download your summaries to your computer or send the information securely to a physician. Remember that your healthcare information is confidential, so carefully consider who you will allow to register on the [employer] Patient Portal for access to your information. You can also access the [employer] Patient Portal on the [employer]. Simply click on Health Records under Health Data and then click on the [employer] logo. HOW TO SAFELY DISPOSE OF PRESCRIPTION MEDICATIONS Please use one of the following methods to safely dispose of your unused medications. 1.Use a drug disposal kit: the drug disposal pouch allows you to safely discard your old and unused drugs. Ask your nurse to give you one when you are discharged.2.Visit a local take-back location: Many local pharmacies and police departments have programs that collect old and unwanted prescription drugs. Call your local pharmacy or go to http://bit.NeurOp/8Y2Yj2r to find one close to you.3.Make use of household items: Use cat litter or old coffee grounds to dispose medications if other options are not available. Mix your drugs with these household products, seal them in an airtight container and throw it into the garbage. Call [facility]: [phone] to be sure your drugs can be disposed of in this way. Some medicines may require a different approach.4.Never flush your medications down the toilet. IF YOU HAVE BEEN PRESCRIBED AN OPIOIDS FOR PAIN If you have been prescribed an opioid (such as hydrocodone, oxycodone or morphine), it is critical to understand the possible side effects and risks of opioid pain medications. Even when taken as directed, opioids can have several side effects including: Tolerance, meaning you might need to take more of a medication for the same pain relief. Nausea, vomiting and/or constipation. Sleepiness, dizziness, dry mouth, confusion, depression or itching. Physical dependence, meaning you have withdrawal symptoms when a medication is stopped ? this can develop within a few days. KNOW YOUR RESPONSIBILITIES It is important to know exactly how much and how often to take the opioid pain medications you are prescribed. Never take opioids in higher amounts or more often than prescribed. Do not combine opioids with alcohol or other drugs that cause drowsiness, such as benzodiazepines, also known as benzos, including diazepam and alprazolam, muscle relaxants or sleep aids. Never sell or share prescription opioids. This is illegal. Store opioids in a secure place and out of reach of others (including children, family, friends and visitors). The last page(s) of this document has been signed and retained as a CHART COPY Signatures Patient Education Materials Back Exercises, Lumbar Back Exercises, Lumbar Medication Leaflets diclofenac topical My discharge plan and instructions have been reviewed and explained to me and IREYNALDO II, TERRY K understand my current condition and have read and understand these discharge instructions. I have received a written copy of the plan/instructions. If I have questions, I am aware that I should contact my doctor. 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 Injury may occur after a sudden forceful twisting or bending force such as in a car accident, after a simple awkward movement, or after lifting something heavy with poor body positioning. In any case, muscle spasm is often present and adds to the pain. Thankfully, most people feel better in 1 to 2 weeks, and most of the rest in 1 to 2 months. Most people can remain active. Unless you had a forceful or traumatic physical injury such as a car accident or fall, X-rays may not be ordered for the first evaluation of a back sprain or strain. If pain continues and does not respond to medical treatment, your healthcare provider may then order X-rays and other tests. Home care The following guidelines will help you care for your injury at home: When in bed, try to find a comfortable position. A firm mattress is best. Try lying flat on your back with pillows under your knees. You can also try lying on your side with your knees bent up toward your chest and a pillow between your knees. Don't sit for long periods. Try not to take long car rides or take other trips that have you sitting for a long time. This puts more stress on the lower back than standing or walking. During the first 24 to 72 hours after an injury or flare-up, apply an ice pack to the painful area for 20 minutes. Then remove it for 20 minutes. Do this for 60 to 90 minutes, or several times a day. This will reduce swelling and pain. Be sure to wrap the ice pack in a thin towel or plastic to protect your skin. You can start with ice, then switch to heat. Heat from a hot shower, hot bath, or heating pad reduces pain and works well for muscle spasms. Put heat on the painful area for 20 minutes, then remove for 20 minutes. Do this for 60 to 90 minutes, or several times a day. Do not use a heating pad while sleeping. It can burn the skin. You can alternate the ice and heat. Talk with your healthcare provider to find out the best treatment or therapy for your back pain. Therapeutic massage will help relax the back muscles without stretching them. Be aware of safe lifting methods. Do not lift anything over 15 pounds until all of the pain is gone. Medicines Talk to your healthcare provider before using medicines, especially if you have other health problems or are taking other medicines. You may use acetaminophen or ibuprofen to control pain, unless another pain medicine was prescribed. If you have chronic conditions like diabetes, liver or kidney disease, stomach ulcers, or gastrointestinal bleeding, or are taking blood-thinner medicines, talk with your doctor before taking any medicines. Be careful if you are given prescription medicines, narcotics, or medicine for muscle spasm. They can cause drowsiness, and affect your coordination, reflexes, and judgment. Do not drive or operate heavy machinery when taking these types of medicines. Only take pain medicine as prescribed by your healthcare provider. Follow-up care Follow up with your healthcare provider, or as advised. You may need physical therapy or more tests if your symptoms get worse. If you had X-rays your healthcare provider may be checking for any broken bones, breaks, or fractures. Bruises and sprains can sometimes hurt as much as a fracture. These injuries can take time to heal completely. If your symptoms don t improve or they get worse, talk with your healthcare provider. You may need a repeat X-ray or other tests. Call 911 Call 911 if any of the following occur: Trouble breathing Confused Very drowsy or trouble awakening Fainting or loss of consciousness Rapid or very slow heart rate Loss of bowel or bladder control When to seek medical advice Call your healthcare provider right away if any of the following occur: Pain gets worse or spreads to your arms or legs Weakness or numbness in one or both arms or legs Numbness in the groin or genital area [id number] [employer]. [address] [place] [address], [place] [address]. All rights reserved. This information is not intended as a substitute for professional medical care. Always follow your healthcare professional's instructions. Follow Up Care 02/03/2023 15:08:00 With:ALBERTA BRICENO DO Address: [address] [place] [id number] When:2-4 days [facility] Gladyssara Jimenez 02-03-2023 Note Discharge Instructions Thank you for allowing [facility] to assist you with your healthcare needs. The following is important discharge information regarding your hospital visit. Diagnosis from Today's Visit Lumbar back sprain Cellulitis Back pain Cellulitis reevaluation Leg pain-swelling What to Do Next Instructions from Your Care Team Lesli for symptomatic management of your low back pain. This does make you feel drowsy. Avoid driving or using heavy machinery while on this medication. It is very important to perform back extension exercises and early mobilization to treat muscle strains. Please follow-up with your primary care physician closely. We are also treating your infection with antibiotic. Please take as prescribed and finish the whole course. If you develop any worsening fever, chills, discharge from the lesion, report back to the emergency department. No qualifying data available. Post Acute Orders No qualifying data available. You Need to Schedule the Following Appointments Follow Up with ALBERTA BRICENO DO When Within 2-4 days Where: [address] [place] [id number]- Allergies NKA Medications Please ask your primary doctor or pharmacist before taking any other medication not listed, including over the counter drugs, herbal medications, vitamins and or supplements as they may interact with your home medications. What How Much When Why Instructions Last Dose New cephalexin (Keflex use cephalexin ) 500 Milligram by mouth Four (4) times a day Lumbar back sprain Cellulitis Duration: 5 Days Printed Prescription Changed cyclobenzaprine (cyclobenzaprine 15 mg oral capsule, extended release) 2 cap by mouth Every day as needed for Muscle pain Duration: 10 Days Printed Prescription Changed cyclobenzaprine (Flexeril) by mouth Three (3) times a day Unchanged acetaminophen-hydrocodone ([place] 325- 5 mg oral tablet) 1 tab(s) by mouth Every 4 hours as needed for for pain Lumbar strain Duration: 3 Days Unchanged albuterol (albuterol 2.5 mg/ 3 mL (0.083%) inhalation solution) 3 Milliliter by inhalation Every 6 hours Unchanged albuterol-ipratropium (albuterol-ipratropium 2.5 mg-0.5 mg/ 3 mL inhalation solution) 3 Milliliter by inhalation Every 4 hours Unchanged DME (Alcohol Swabs) See instructions 1 box Unchanged DME (Blood Glucose Test Machine) See instructions Device as determined by insurance coverage Unchanged DME (Blood Glucose Test Strips) See instructions Testing blood glucose TID. 1 bottle of 100 strips Unchanged DME (Lancets) See instructions Testing blood glucose TID.1 box Unchanged DULoxetine (DULoxetine 30 mg oral delayed release capsule) 1 cap by mouth Once a day do not crush or chew Unchanged furosemide (furosemide 40 mg oral tablet) 1 tab(s) by mouth Once a day Unchanged gabapentin (gabapentin 600 mg oral tablet) 1 tab(s) by mouth Three (3) times a day Unchanged glipiZIDE (glipiZIDE 10 mg oral tablet, extended release) 1 tab(s) by mouth Once a day Unchanged ibuprofen (ibuprofen 800 mg oral tablet) 1 tab(s) by mouth Three (3) times a day Unchanged insulin detemir (Levemir) (Levemir 100 units/ mL 10 mL vial) 70 unit(s) Subcutaneous Daily at bedtime Unchanged lidocaine topical (Lidoderm 5% topical patch) 1 patch(es) Transdermal Once a day Unchanged metFORMIN (metFORMIN 500 mg oral tablet (IR)) 1 tab(s) by mouth Two (2) times a day Unchanged metFORMIN (metFORMIN 500 mg oral tablet (IR)) 1 tab(s) by mouth Two (2) times a day Hypertension Diabetes mellitus Unchanged metoprolol (Lopressor 25mg--USE metoprolol tartrate 25 mg oral tablet) 1 tab(s) by mouth Two (2) times a day TAKE 1 TABLET BY MOUTH TWICE A DAY Unchanged oxyCODONE (oxyCODONE 15 mg oral tablet ( extended release )) 1 tab(s) by mouth Four (4) times a day Unchanged potassium chloride (Potassium Chloride (Eqv-K-Tab) 20 mEq oral tablet, extended release) 1 tab(s) by mouth Once a day Duration: 7 Days take with food Unchanged tiotropium (Spiriva Respimat 60 ACT 2.5 mcg/ inh inhalation aerosol) 2 puff(s) by inhalation Once a day Unchanged tirzepatide (Mounjaro 5 mg/ 0.5 mL subcutaneous solution) INJECT the contents OF 1 (ONE) pen under the skin once weekly DIRECTED Unchanged tiZANidine (tiZANidine 2 mg oral tablet) 1 tab(s) by mouth Every 8 hours Back pain Please take this list to your next doctor s visit. Bring all medications you take, including over the counter medications, herbals and other supplements with you to your doctor s visit. Patients and families are reminded to discard old lists and to update any records with all medication providers or retail pharmacies. Medication Leaflets cephalexin (sef a SHASHANK in) Keflex What is the most important information I should know about cephalexin? You should not use this medicine if you are allergic to cephalexin or to similar antibiotics, such as Ceftin, Cefzil, Omnicef, and others. Tell your doctor if you are allergic to any drugs, especially penicillins or other antibiotics. What is cephalexin? Cephalexin is a cephalosporin (SEF a low spor in) antibiotic that is used to treat bacterial infections of the lungs, ear, skin, bones, bladder, and kidneys. Cephalexin is used to treat infections in adults and children who are at least 1 year old. Cephalexin may also be used for purposes not listed in this medication guide. What should I discuss with my healthcare provider before taking cephalexin? You should not use this medicine if you are allergic to cephalexin or any other cephalosporin antibiotic (cefdinir, cefadroxil, cefoxitin, cefprozil, ceftriaxone, cefuroxime, Omnicef, and others). Tell your doctor if you have ever had: an allergy to any drug (especially penicillin); liver or kidney disease; or intestinal problems, such as colitis. The liquid form of cephalexin may contain sugar. This may affect you if you have diabetes. Tell your doctor if you are or breast-feeding. How should I take cephalexin? Follow all directions on your prescription label and read all medication guides or instruction sheets. Use the medicine exactly as directed. Do not use cephalexin to treat any condition that has not been checked by your doctor. Measure liquid medicine carefully. Use the dosing syringe provided, or use a medicine dose-measuring device (not a kitchen spoon). Use this medicine for the full prescribed length of time, even if your symptoms quickly improve. Skipping doses can increase your risk of infection that is resistant to medication. Cephalexin will not treat a viral infection such as the flu or a common cold. Do not share cephalexin with another person, even if they have the same symptoms you have. This medicine can affect the results of certain medical tests. Tell any doctor who treats you that you are using cephalexin. Store the tablets and capsules at room temperature away from moisture, heat, and light. Store the liquid medicine in the refrigerator. Throw away any unused liquid after 14 days. What happens if I miss a dose? Take the medicine as soon as you can, but skip the missed dose if it is almost time for your next dose. Do not take two doses at one time. What happens if I overdose? Seek emergency medical attention or call the Poison Help line at . Overdose symptoms may include nausea, vomiting, stomach pain, diarrhea, and blood in your urine. What should I avoid while taking cephalexin? Antibiotic medicines can cause diarrhea, which may be a sign of a new infection. If you have diarrhea that is watery or bloody, call your doctor before using anti-diarrhea medicine. What are the possible side effects of cephalexin? Get emergency medical help if you have signs of an allergic reaction (hives, difficult breathing, swelling in your face or throat) or a severe skin reaction (fever, sore throat, burning eyes, skin pain, red or purple skin rash with blistering and peeling). Call your doctor at once if you have: severe stomach pain, diarrhea that is watery or bloody (even if it occurs months after your last dose); unusual tiredness, feeling light-headed or short of breath; easy bruising, unusual bleeding, purple or red spots under your skin; a seizure; pale skin, cold hands and feet; yellowed skin, dark colored urine; fever, weakness; or pain in your side or lower back, painful urination. Common side effects may include: diarrhea; nausea, vomiting; indigestion, stomach pain; or vaginal itching or discharge. This is not a complete list of side effects and others may occur. Call your doctor for medical advice about side effects. You may report side effects to FDA at 5-720-TIJ-4050. What other drugs will affect cephalexin? Tell your doctor about all your other medicines, especially: metformin; or probenecid. This list is not complete. Other drugs may affect cephalexin, including prescription and ofqy-oqs-vylnmif medicines, vitamins, and herbal products. Not all possible drug interactions are listed here. Where can I get more information? Your pharmacist can provide more information about cephalexin. Remember, keep this and all other medicines out of the reach of children, never share your medicines with others, and use this medication only for the indication prescribed. Every effort has been made to ensure that the information provided by [employer] is accurate, up-to-date, and complete, but no guarantee is made to that effect. Drug information contained herein may be time sensitive. [employer] information has been compiled for use by healthcare practitioners and consumers in the [place] and therefore [employer] does not warrant that uses outside of the [place] are appropriate, unless specifically indicated otherwise. [employer]'s drug information does not endorse drugs, diagnose patients or recommend therapy. [employer] drug information is an informational resource designed to assist licensed healthcare practitioners in caring for their patients and/or to serve consumers viewing this service as a supplement to, and not a substitute for, the expertise, skill, knowledge and judgment of healthcare practitioners. The absence of a warning for a given drug or drug combination in no way should be construed to indicate that the drug or drug combination is safe, effective or appropriate for any given patient. [employer] does not assume any responsibility for any aspect of healthcare administered with the aid of information [employer] provides. The information contained herein is not intended to cover all possible uses, directions, precautions, warnings, drug interactions, allergic reactions, or adverse effects. If you have questions about the drugs you are taking, check with your doctor, nurse or pharmacist. Copyright 5453-9150 [employer] Version: 10.. Revision Date: 10/07/2020. cyclobenzaprine (mirian barker) Amrix, Comfort Pac with Cyclobenzaprine, Fexmid What is the most important information I should know about cyclobenzaprine? You should not use cyclobenzaprine if you have a thyroid disorder, heart block, congestive heart failure, a heart rhythm disorder, or you have recently had a heart attack. Do not use cyclobenzaprine if you have taken an MAO inhibitor in the past 14 days, such as isocarboxazid, linezolid, phenelzine, rasagiline, selegiline, or tranylcypromine. What is cyclobenzaprine? Cyclobenzaprine is a muscle relaxant. It works by blocking nerve impulses (or pain sensations) that are sent to your brain. Cyclobenzaprine is used together with rest and physical therapy to relieve muscle spasms caused by painful conditions such as an injury. Cyclobenzaprine may also be used for purposes not listed in this medication guide. What should I discuss with my healthcare provider before taking cyclobenzaprine? You should not use cyclobenzaprine if you are allergic to it, or if you have: a thyroid disorder; heart block, heart rhythm disorder, congestive heart failure; or if you have recently had a heart attack. Cyclobenzaprine is not approved for use by anyone younger than 15 years old. Do not use cyclobenzaprine if you have taken an MAO inhibitor in the past 14 days. A dangerous drug interaction could occur. MAO inhibitors include isocarboxazid, linezolid, phenelzine, rasagiline, selegiline, and tranylcypromine. Some medicines can interact with cyclobenzaprine and cause a serious condition called serotonin syndrome. Be sure your doctor knows if you also take stimulant medicine, opioid medicine, herbal products, or medicine for depression, mental illness, Parkinson's disease, migraine headaches, serious infections, or prevention of nausea and vomiting. Ask your doctor before making any changes in how or when you take your medications. Tell your doctor if you have ever had: liver disease; glaucoma; enlarged prostate; or problems with urination. It is not known whether this medicine will harm an unborn baby. Tell your doctor if you are or plan to become . It may not be safe to breast-feed while using this medicine. Ask your doctor about any risk. Older adults may be more sensitive to the effects of this medicine. How should I take cyclobenzaprine? Follow all directions on your prescription label and read all medication guides or instruction sheets. Your doctor may occasionally change your dose. Use the medicine exactly as directed. Cyclobenzaprine is usually taken once daily for only 2 or 3 weeks. Follow your doctor's dosing instructions very carefully. Swallow the capsule whole and do not crush, chew, break, or open it. Take the medicine at the same time each day. Call your doctor if your symptoms do not improve after 3 weeks, or if they get worse. Store at room temperature away from moisture, heat, and light. What happens if I miss a dose? Take the medicine as soon as you can, but skip the missed dose if it is almost time for your next dose. Do not take two doses at one time. What happens if I overdose? Seek emergency medical attention or call the Poison Help line at . An overdose of cyclobenzaprine can be fatal. Overdose symptoms may include severe drowsiness, vomiting, fast heartbeats, tremors, agitation, or hallucinations. What should I avoid while taking cyclobenzaprine? Avoid driving or hazardous activity until you know how this medicine will affect you. Your reactions could be impaired. Avoid drinking alcohol. Dangerous side effects could occur. What are the possible side effects of cyclobenzaprine? Get emergency medical help if you have signs of an allergic reaction: hives; difficult breathing; swelling of your face, lips, tongue, or throat. Stop using cyclobenzaprine and call your doctor at once if you have: fast or irregular heartbeats; chest pain or pressure, pain spreading to your jaw or shoulder; or sudden numbness or weakness (especially on one side of the body), slurred speech, balance problems. Seek medical attention right away if you have symptoms of serotonin syndrome, such as: agitation, hallucinations, fever, sweating, shivering, fast heart rate, muscle stiffness, twitching, loss of coordination, nausea, vomiting, or diarrhea. Serious side effects may be more likely in older adults. Common side effects may include: drowsiness, tiredness; headache, dizziness; dry mouth; or upset stomach, nausea, constipation. This is not a complete list of side effects and others may occur. Call your doctor for medical advice about side effects. You may report side effects to FDA at 5-267-USY-8430. What other drugs will affect cyclobenzaprine? Using cyclobenzaprine with other drugs that make you drowsy can worsen this effect. Ask your doctor before using opioid medication, a sleeping pill, a muscle relaxer, or medicine for anxiety or seizures. Tell your doctor about all your other medicines, especially: bupropion (Zyban, for smoking cessation); meperidine; tramadol; verapamil; cold or allergy medicine that contains an antihistamine (Benadryl and others); medicine to treat Parkinson's disease; medicine to treat excess stomach acid, stomach ulcer, motion sickness, or irritable bowel syndrome; medicine to treat overactive bladder; or bronchodilator asthma medication. This list is not complete. Other drugs may affect cyclobenzaprine, including prescription and [id number] medicines, vitamins, and herbal products. Not all possible drug interactions are listed here. Where can I get more information? Your pharmacist can provide more information about cyclobenzaprine. Remember, keep this and all other medicines out of the reach of children, never share your medicines with others, and use this medication only for the indication prescribed. Every effort has been made to ensure that the information provided by [employer] is accurate, up-to-date, and complete, but no guarantee is made to that effect. Drug information contained herein may be time sensitive. [employer] information has been compiled for use by healthcare practitioners and consumers in the [place] and therefore [employer] does not warrant that uses outside of the [place] are appropriate, unless specifically indicated otherwise. [employer]'s drug information does not endorse drugs, diagnose patients or recommend therapy. [employer] drug information is an informational resource designed to assist licensed healthcare practitioners in caring for their patients and/or to serve consumers viewing this service as a supplement to, and not a substitute for, the expertise, skill, knowledge and judgment of healthcare practitioners. The absence of a warning for a given drug or drug combination in no way should be construed to indicate that the drug or drug combination is safe, effective or appropriate for any given patient. [employer] does not assume any responsibility for any aspect of healthcare administered with the aid of information [employer] provides. The information contained herein is not intended to cover all possible uses, directions, precautions, warnings, drug interactions, allergic reactions, or adverse effects. If you have questions about the drugs you are taking, check with your doctor, nurse or pharmacist. Copyright 8186-5977 [employer] Version: 5.01. Revision Date: 06/29/2018. Education [employer] Back Sprain or Strain Injury to the muscles (strain) or ligaments (sprain) around the spine can be troubling. Injury may occur after a sudden forceful twisting or bending force such as in a car accident, after a simple awkward movement, or after lifting something heavy with poor body positioning. In any case, muscle spasm is often present and adds to the pain. Thankfully, most people feel better in 1 to 2 weeks, and most of the rest in 1 to 2 months. Most people can remain active. Unless you had a forceful or traumatic physical injury such as a car accident or fall, X-rays may not be ordered for the first evaluation of a back sprain or strain. If pain continues and does not respond to medical treatment, your healthcare provider may then order X-rays and other tests. Home care The following guidelines will help you care for your injury at home: When in bed, try to find a comfortable position. A firm mattress is best. Try lying flat on your back with pillows under your knees. You can also try lying on your side with your knees bent up toward your chest and a pillow between your knees. Don't sit for long periods. Try not to take long car rides or take other trips that have you sitting for a long time. This puts more stress on the lower back than standing or walking. During the first 24 to 72 hours after an injury or flare-up, apply an ice pack to the painful area for 20 minutes. Then remove it for 20 minutes. Do this for 60 to 90 minutes, or several times a day. This will reduce swelling and pain. Be sure to wrap the ice pack in a thin towel or plastic to protect your skin. You can start with ice, then switch to heat. Heat from a hot shower, hot bath, or heating pad reduces pain and works well for muscle spasms. Put heat on the painful area for 20 minutes, then remove for 20 minutes. Do this for 60 to 90 minutes, or several times a day. Do not use a heating pad while sleeping. It can burn the skin. You can alternate the ice and heat. Talk with your healthcare provider to find out the best treatment or therapy for your back pain. Therapeutic massage will help relax the back muscles without stretching them. Be aware of safe lifting methods. Do not lift anything over 15 pounds until all of the pain is gone. Medicines Talk to your healthcare provider before using medicines, especially if you have other health problems or are taking other medicines. You may use acetaminophen or ibuprofen to control pain, unless another pain medicine was prescribed. If you have chronic conditions like diabetes, liver or kidney disease, stomach ulcers, or gastrointestinal bleeding, or are taking blood-thinner medicines, talk with your doctor before taking any medicines. Be careful if you are given prescription medicines, narcotics, or medicine for muscle spasm. They can cause drowsiness, and affect your coordination, reflexes, and judgment. Do not drive or operate heavy machinery when taking these types of medicines. Only take pain medicine as prescribed by your healthcare provider. Follow-up care Follow up with your healthcare provider, or as advised. You may need physical therapy or more tests if your symptoms get worse. If you had X-rays your healthcare provider may be checking for any broken bones, breaks, or fractures. Bruises and sprains can sometimes hurt as much as a fracture. These injuries can take time to heal completely. If your symptoms don t improve or they get worse, talk with your healthcare provider. You may need a repeat X-ray or other tests. Call 911 Call 911 if any of the following occur: Trouble breathing Confused Very drowsy or trouble awakening Fainting or loss of consciousness Rapid or very slow heart rate Loss of bowel or bladder control When to seek medical advice Call your healthcare provider right away if any of the following occur: Pain gets worse or spreads to your arms or legs Weakness or numbness in one or both arms or legs Numbness in the groin or genital area [id number] [employer]. [address] [place] [address]. All rights reserved. This information is not intended as a substitute for professional medical care. Always follow your healthcare professional's instructions. Additional Information VACCINATE! IT SAVES LIVES! Members of the community who have not yet received the COVID-19 vaccine and would like to receive it can visit one of [facility] vaccine clinics. There are many vaccine clinic locations within the [facility]. For locations and available times, please visit [email or web address] It is important to note that some COVID mobile vaccine clinics are held outdoors and may be canceled in rainy or stormy conditions. To learn more about pediatric vaccinations (ages 5-11), we invite you to visit the [facility] webpage. [email or web address] [email or web address] [email or web address] To learn more about the COVID-19 vaccine, we invite you to visit the CDC website for a list of frequently asked questions. https://www.cdc.gov/coronavirus/ 2019-ncov/vaccines/faq.html [facility] Patient Portal Access Instructions: Stay connected with your healthcare team and access your personal medical information anytime with the [employer] Patient Portal. If you would like a full copy of your medical records please contact the [facility] Medical Records Department Wednesday through Wednesday between 8a.m. and 4:30p.m. Please follow the directions below to access the portal: 1.Access the email account you provided upon registration to the [facility].2.Look for an invitation email from [facility].3.Open the email and access the invitation link: Accept Invitation to [facility].Fill in the required fabian to create your account. Sign into www.[employer] with your username and password that you created in the above steps to stay up to date. You can then view a summary of results, a summary of your visits, and the ability to download your summaries to your computer or send the information securely to a physician. Remember that your healthcare information is confidential, so carefully consider who you will allow to register on the [employer] Patient Portal for access to your information. You can also access the [employer] Patient Portal on the [employer]. Simply click on Health Records under Health Data and then click on the [facility] logo. HOW TO SAFELY DISPOSE OF PRESCRIPTION MEDICATIONS Please use one of the following methods to safely dispose of your unused medications. 1.Use a drug disposal kit: the drug disposal pouch allows you to safely discard your old and unused drugs. Ask your nurse to give you one when you are discharged.2.Visit a local take-back location: Many local pharmacies and police departments have programs that collect old and unwanted prescription drugs. Call your local pharmacy or go to http://bit.NeurOp/4E9Hs3w to find one close to you.3.Make use of household items: Use cat litter or old coffee grounds to dispose medications if other options are not available. Mix your drugs with these household products, seal them in an airtight container and throw it into the garbage. Call [facility]: [phone] to be sure your drugs can be disposed of in this way. Some medicines may require a different approach.4.Never flush your medications down the toilet. IF YOU HAVE BEEN PRESCRIBED AN OPIOIDS FOR PAIN If you have been prescribed an opioid (such as hydrocodone, oxycodone or morphine), it is critical to understand the possible side effects and risks of opioid pain medications. Even when taken as directed, opioids can have several side effects including: Tolerance, meaning you might need to take more of a medication for the same pain relief. Nausea, vomiting and/or constipation. Sleepiness, dizziness, dry mouth, confusion, depression or itching. Physical dependence, meaning you have withdrawal symptoms when a medication is stopped ? this can develop within a few days. KNOW YOUR RESPONSIBILITIES It is important to know exactly how much and how often to take the opioid pain medications you are prescribed. Never take opioids in higher amounts or more often than prescribed. Do not combine opioids with alcohol or other drugs that cause drowsiness, such as benzodiazepines, also known as benzos, including diazepam and alprazolam, muscle relaxants or sleep aids. Never sell or share prescription opioids. This is illegal. Store opioids in a secure place and out of reach of others (including children, family, friends and visitors). The last page(s) of this document has been signed and retained as a CHART COPY Signatures Patient Education Materials Back Sprain/Strain Medication Leaflets cephalexin, cyclobenzaprine My discharge plan and instructions have been reviewed and explained to me and I,SASHA JACOBS II understand my current condition and have read and understand these discharge instructions. I have received a written copy of the plan/instructions. If I have questions, I am aware that I should contact my doctor. 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 Signature: Date/Time: Relationship to Patient: Witness Name/Signature: Date/Time: [facility] 11-29-2022 Hospital Discharge instructions Patient Education 11/29/2022 17:28:10 Cellulitis Skin Infection Cellulitis Cellulitis is an infection of the deep layers of skin. A break in the skin, such as a cut or scratch, can let bacteria under the skin. If the bacteria get to deep layers of the skin, it can be serious. If not treated, cellulitis can get into the bloodstream and lymph nodes. The infection can then spread throughout the body. This causes serious illness. Cellulitis causes the affected skin to become red, swollen, warm, and sore. The reddened areas have a visible border. An open sore may leak fluid (pus). You may have a fever, chills, and pain. Cellulitis is treated with antibiotics taken for 7 to 10 days. An open sore may be cleaned and covered with cool wet gauze. Symptoms should get better 1 to 2 days after treatment is started. Make sure to take all the antibiotics for the full number of days until they are gone. Keep taking the medicine even if your symptoms go away. Home care Follow these tips: Limit the use of the part of your body with cellulitis. If the infection is on your leg, keep your leg raised while sitting. This will help to reduce swelling. Take all of the antibiotic medicine exactly as directed until it is gone. Do not miss any doses, especially during the first 7 days. Don t stop taking the medicine when your symptoms get better. Keep the affected area clean and dry. Wash your hands with soap and warm water before and after touching your skin. Anyone else who touches your skin should also wash his or her hands. Don't share towels. Follow-up care Follow up with your healthcare provider, or as advised. If your infection does not go away on the first antibiotic, your healthcare provider will prescribe a different one. When to seek medical advice Call your healthcare provider right away if any of these occur: Red areas that spread Swelling or pain that gets worse Fluid leaking from the skin (pus) Fever higher of 100.4 F (38.0 C) or higher after 2 days on antibiotics [id number] [employer]. [address] [place] [address], [place] [address]. All rights reserved. This information is not intended as a substitute for professional medical care. Always follow your healthcare professional's instructions. 11/29/2022 17:28:06 COPD Flare COPD Flare You have had a flare-up of your COPD. COPD (chronic obstructive pulmonary disease) is a common lung disease. It causes your airways to get irritated and narrower. This makes it harder for you to breathe. Emphysema and chronic bronchitis are both types of COPD. This is a long-term (chronic) condition. This means you always have it. Sometimes it gets worse. When this happens, it is called a flare-up. Symptoms of COPD People with COPD may have symptoms most of the time. In a flare-up, your symptoms get worse. These symptoms may mean you are having a flare-up: Shortness of breath, shallow or rapid breathing, or wheezing that gets worse Lung infection Cough that gets worse More mucus, thicker mucus or mucus of a different color Tiredness, less energy, or trouble doing your normal activities Fever Chest tightness Your symptoms don t get better even when you use your normal medicines, inhalers, and nebulizer Trouble talking You feel confused Causes of flare-ups Unfortunately, a flare-up can happen even if you did everything right. And even if you followed your healthcare provider s instructions. Some causes of flare-ups are: Smoking or secondhand smoke Colds, the flu, or respiratory infections Air pollution Sudden change in the weather Dust, irritating chemicals, or strong fumes Not taking your medicines as prescribed Home care Here are some things you can do at home to treat a flare-up: Try not to panic. This makes it harder to breathe, and keeps you from doing the right things. Don t smoke or be around others who are smoking. Try to drink more fluids than normal during a flare-up, unless your healthcare provider has told you not to because of heart and kidney problems. More fluids can help loosen the mucus. Use your inhalers and nebulizer, if you have one, as you have been told to. If you were given antibiotics, take them until they are used up or your provider tells you to stop. It s important to finish the antibiotics, even though you feel better. This will make sure the infection has cleared. If you were given prednisone or another steroid, finish it even if you feel better. Preventing a flare-up Flare-ups happen. But the best way to treat one is to prevent it before it starts. Here are some pointers: Don t smoke or be around others who are smoking. Take your medicines as discussed with your healthcare provider. Talk with your provider about getting a flu shot every year. Also find out if you need a pneumonia shot. If there is a weather advisory warning to stay indoors, try to stay inside when possible. Try to eat healthy, exercise, and get plenty of sleep. Try to stay away from things that normally set you off. These include dust, chemical fumes, hairsprays, or strong perfumes. Follow-up care Follow up with your healthcare provider, or as advised. If a culture was done, you will be told if your treatment needs to be changed. You can call as directed for the results. If X-rays were done, you will be told of any new findings that may affect your care. Call 911 Call 911 if any of these occur: You have trouble breathing You feel confused or it s hard to wake you up You faint or lose consciousness You have a rapid heart rate You have new pain in your chest, arm, shoulder, neck, or upper back When to seek medical advice Call your healthcare provider right away if any of these occur: Wheezing or shortness of breath gets worse You need to use your inhalers more often than normal without relief Fever of 100.4 F (38 C) or higher, or as directed by your healthcare provider Coughing up lots of dark-colored or bloody mucus (sputum) Chest pain with each breath You don't start to get better within 24 hours Swelling of your ankles gets worse Dizziness or weakness [phone] [employer]. [address] [place] [address]. All rights reserved. This information is not intended as a substitute for professional medical care. Always follow your healthcare professional's instructions. 11/29/2022 17:28:02 PERIPHERAL EDEMA, Bilateral Leg Swelling in Both Legs Swelling of the feet, ankles, and legs is called edema. It is caused by excess fluid that has collected in the tissues. Extra fluid in the body settles in the lowest part because of gravity. This is why the legs and feet are most affected. Some of the causes for edema include: Disease of the heart like congestive heart failure Standing or sitting for long periods of time. Sitting with your legs in the down position may do this. Infection of the feet or legs Blood pooling in the veins of your legs (venous insufficiency) Dilated veins in your lower leg (varicose veins) Garters or other clothing that is tight on your legs. This will cause blood to pool in your legs because the clothing limits blood flow. Some medicines. These include hormones like control pills. They also include some blood pressure medicines like calcium channel blockers and steroids. Other medicines include some antidepressants like MAO inhibitors and tricyclics. Menstrual periods that cause you to retain fluids Many types of renal disease Liver failure or cirrhosis . Some swelling is normal, but a sudden increase in leg swelling or weight gain can be a sign of a dangerous complication of .. Poor nutrition Medical treatment will depend on what is causing the swelling in your legs. Your health care provider may prescribe water pills (diuretics) to get rid of the extra fluid. Home care Follow these guidelines when caring for yourself at home: Don't wear clothing like garters that is tight on your legs. Keep your legs up while lying or sitting. If infection, injury, or recent surgery is causing the swelling, stay off your legs as much as possible until symptoms get better. If your health care provider says that your leg swelling is caused by venous insufficiency or varicose veins, don't sit or drawer in one place for long periods of time. Take breaks and walk about every few hours. Brisk walking is a good exercise. It helps circulate the blood that has collected in your leg. Talk with your provider about using support stockings to stop daytime leg swelling. If your provider says that heart disease is causing your leg swelling, follow a low-salt diet to stop extra fluid from staying in your body. Follow-up care Follow up with your health care provider, or as advised. When to seek medical advice Call your health care provider right away if any of these occur: New shortness of breath or chest pain Shortness of breath or chest pain that gets worse Swelling in both legs or ankles that gets worse Swelling of the abdomen Redness, warmth, or swelling in one leg Fever of 100.4 F (38 C) or higher, or as directed by your health care provider Yellow color to your skin or eyes Rapid, unexplained weight gain [id number] [employer]. [address] [place] [id number]. All rights reserved. This information is not intended as a substitute for professional medical care. Always follow your healthcare professional's instructions. 11/29/2022 17:27:55 Diabetes, General Information General Information on Diabetes Diabetes is a long-term health problem. It means your body doesn't make enough insulin. Or it may mean that your body can't use the insulin it makes. Insulin is a hormone in your body. It lets blood sugar (glucose) reach the cells in your body. All of your cells need glucose for fuel. When you have diabetes, the glucose in your blood builds up because it can't get into the cells. This buildup is called high blood sugar (hyperglycemia). Your blood sugar level depends on several things. It depends on what kind of food you eat and how much of it you eat. It also depends on how much exercise you get, and how much insulin you have in your body. Eating too much of the wrong kinds of food or not taking diabetes medicine on time can cause high blood sugar. Infections can cause high blood sugar even if you are taking medicines correctly. These things can also cause low blood sugar: Missing meals Not eating enough food Unplanned or heavy exercise Taking too much diabetes medicine Diabetes can cause serious problems over time if you don't get treated. These problems include: Heart disease Stroke Kidney failure Blindness Nerve pain Loss of feeling in the legs and feet Tissue (gangrene) By keeping your blood sugar under control you can prevent or delay these problems. Normal blood sugar levels are 80mg/dL to 100 mg/dL before a meal. They are less than 180 mg/dL in the 1 to 2 hours after a meal. Home care Follow these guidelines when caring for yourself at home: Follow the diet your healthcare provider gives you. Take insulin or other diabetes medicine exactly as told to. Watch your blood sugar as you are told to. Keep a log of your results. This will help your provider change your medicines to keep your blood sugar under control. Try to reach your ideal weight. You may be able to cut back on or not have to take diabetes medicine if you eat the right foods and get exercise. Don't smoke. Smoking worsens the effects of diabetes on your circulation. You are much more likely to have a heart attack if you have diabetes and you smoke. Take good care of your feet. If you have lost feeling in your feet, you may not notice an injury or infection. Check your feet and between your toes at least once a day. Use a mirror to check the bottoms of your feet. Wear a medical alert bracelet or necklace. Or carry a card in your wallet that says you have diabetes. This will help healthcare providers give you the right care if you get very ill and can't tell them that you have diabetes. Sick-day plan If you get a cold, the flu, or a bacterial or viral infection, take these steps: Look at your diabetes sick plan and call your healthcare provider as you were told to. You may need to call your provider right away if: oYour blood sugar is above 240 mg/dL while taking your diabetes medicine oYour urine ketone levels are above normal or high oYou have been vomiting more than 6 hours oYou have trouble breathing or your breath has a fruity smell oYou have a high fever oYou have a fever for several days and you are not getting better oYou get light-headed and are sleepier than usual Keep taking your diabetes pills (oral medicine) even if you have been vomiting and are feeling sick. Call your provider right away. This is because you may need insulin to lower your blood sugar until you recover from your illness. Keep taking your insulin even if you have been vomiting and are feeling sick. Call your provider right away to ask if you need to change your insulin dose. This will depend on your blood sugar results. Check your blood sugar every 2 to 4 hours, or at least 4 times a day. Check your ketones often. Watch them more often if you are vomiting and having diarrhea. Don't skip meals. Try to eat small meals on a regular schedule. Do this even if you don't feel like eating. Drink water or other liquids that don't have caffeine or calories. This will keep you from getting dehydrated. If you are nauseated or vomiting, takes small sips every 5 minutes. To prevent dehydration try to drink a cup (8 ounces) of fluids every hour while you are awake. General care Always bring a source of fast-acting sugar with you in case you have symptoms of low blood sugar (below 70 mg/dL). At the first sign of low blood sugar, eat or drink 15 to 20 grams of fast-acting sugar to raise your blood sugar. Examples are: 3 to 4 glucose tablets. You can buy these at most drugstores. 4 ounces (1/2 cup) of regular (not diet) soft drinks 4 ounces (1/2 cup) of any fruit juice 8 ounces (1 cup) of milk 5 to 6 pieces of hard candy 1 tablespoon of honey Check your blood sugar 15 minutes after treating yourself. If it is still below 70 mg/dL, take 15 to 20 more grams of fast-acting sugar. Test again in 15 minutes. If it returns to normal (70 mg/dL or above), eat a snack or meal to keep your blood sugar in a safe range. If it stays low, call your doctor or go to an emergency room. If you have had severe low blood sugar episodes, see that someone in your family is trained to give you a shot of glucagon. This will raise your blood sugar if you are unconscious and can't eat any of the above tablets or foods. Follow-up care Follow-up with your healthcare provider, or as advised. For more information about diabetes, visit the [place] [employer] website at www.diabetes.org. Or you can call [phone]. When to seek medical advice Call your healthcare provider right away if you have any of these symptoms of high blood sugar that don't go away with the above treatment suggestions: Urinating often Drowsiness Thirst Headache Nausea or vomiting Belly (abdominal) pain Eyesight changes Fast breathing Also call your provider right away if you have any of these signs of low blood sugar and they don't go away with the above treatment suggestions: Fatigue Headache Shakes Excess sweating Hunger Feeling anxious or restless Eyesight changes Drowsiness Weakness Call 911 Call 911 if any of these occur: Chest pain or shortness of breath Dizziness or fainting Weakness of an arm or leg or one side of the face Trouble speaking or seeing Confusion or loss of consciousness [phone] [employer]. [address] [place] [address]. All rights reserved. This information is not intended as a substitute for professional medical care. Always follow your healthcare professional's instructions. 11/29/2022 17:27:47 Hypertension, To Be Confirmed High Blood Pressure, To Be Confirmed, No Treatment Your blood pressure today was higher than normal. Sometimes anxiety or pain can cause a temporary rise in blood pressure. It later returns to normal. Blood pressure that is high only one time doesn t mean that you have high blood pressure (hypertension). High blood pressure is a chronic illness. But you should have your blood pressure measured again within the next few days to find out if it s still high. Blood pressure measurements are given as 2 numbers. Systolic blood pressure is the upper number. This is the pressure when the heart contracts. Diastolic blood pressure is the lower number. This is the pressure when the heart relaxes between beats. You will see your blood pressure readings written together. For example, a person with a systolic pressure of 118 and a diastolic pressure of 78 will have 118/78 written in the medical record. Blood pressure is categorized as normal, elevated, or stage 1 or stage 2 high blood pressure: Normal blood pressure is systolic of less than 120 and diastolic of less than 80 (120/80) Elevated blood pressure is systolic of 120 to 129 and diastolic less than 80 Stage 1 high blood pressure is systolic is 130 to 139 or diastolic between 80 to 89 Stage 2 high blood pressure is when systolic is 140 or higher or the diastolic is 90 or higher Lifestyle changes such as weight loss, exercise, and quitting smoking, can help manage your blood pressure. Have your blood pressure checked regularly to be sure it is under control. Home care To track your blood pressure, your provider may ask you to come into the office at different times and on different days. If your healthcare provider asks you to check your readings at home, ask him or her what times of the day to test and for how many days. Before you leave the office, ask your provider to show you how to take your blood pressure and be sure to ask questions if you don't understand something. Consider buying an automatic blood pressure monitor. Ask your provider for a recommendation as well as the proper size cuff to fit your arm. You can buy blood pressure monitors at most pharmacies. The [place] recommends the following guidelines for home blood pressure monitoring: Don't smoke or drink coffee or other caffeinated drinks for 30 minutes before taking your blood pressure. Go to the bathroom before the test. Relax for 5 minutes before taking the measurement. Sit with your back supported (don't sit on a couch or soft chair); keep your feet on the floor uncrossed. Place your arm on a solid flat surface (like a table) with the upper part of the arm at heart level. Place the middle of the cuff directly above the bend of the elbow. Check the monitor's instruction manual for an illustration. Take multiple readings. When you measure, take 2 to 3 readings one minute apart and record all of the results. Take your blood pressure at the same time every day, or as your healthcare provider recommends. Record the date, time, and blood pressure reading. Take the record with you to your next medical appointment. If your blood pressure monitor has a built-in memory, simply take the monitor with you to your next appointment. Call your provider if you have several high readings. Don't be frightened by a single high blood pressure reading, but if you get several high readings, check in with your healthcare provider. Note: When blood pressure reaches a systolic (top number) of 180 or higher OR diastolic (bottom number) of 110 or higher, seek emergency medical treatment. Follow-up care Keep all of your follow up appointments. If your blood pressure is more than 120 over 80 on 2 out of 3 days, you will need to follow up with your healthcare provider for more evaluation and treatment. Don t put this off! High blood pressure can be treated. High blood pressure that s not treated raises your risk for heart attack, heart failure, and stroke. When to seek medical advice Call your healthcare provider right away if any of these occur: Blood pressure reaches a systolic (top number) of 180 or higher, OR diastolic (bottom number) of 110 or higher Chest pain or shortness of breath Severe headache Throbbing or rushing sound in the ears Nosebleed Sudden severe pain in your belly (abdomen) Extreme drowsiness, confusion, or fainting Dizziness or dizziness with spinning sensation (vertigo) Weakness of an arm or leg or one side of the face You have problems speaking or seeing [id number] [employer]. [address] [place] [address]. All rights reserved. This information is not intended as a substitute for professional medical care. Always follow your healthcare professional's instructions. Follow Up Care 11/29/2022 16:43:55 With:ALBERTA BRICENO Address: [address] [place] [phone] Business (1) When:2-4 days Comments:Schedule appointment as soon as possible [facility] 11-29-2022 Note Discharge Instructions Thank you for allowing [facility] to assist you with your healthcare needs. The following is important discharge information regarding your hospital visit. Diagnosis from Today's Visit Hypertension Diabetes mellitus Peripheral edema COPD - Chronic obstructive pulmonary disease Cellulitis Cellulitis Medication refill Shortness of breath What to Do Next Instructions from Your Care Team No qualifying data available. Post Acute Orders No qualifying data available. You Need to Schedule the Following Appointments Follow Up with ALBERTA BRICENO When Within 2-4 days Why: Schedule appointment as soon as possible Where: [address] [place] [phone] Business (1) Allergies [facility] Medications Please ask your primary doctor or pharmacist before taking any other medication not listed, including over the counter drugs, herbal medications, vitamins and or supplements as they may interact with your home medications. What How Much When Why Instructions Last Dose New doxycycline (doxycycline hyclate 100 mg oral tablet) 1 tab(s) by mouth Two (2) times a day Hypertension Diabetes mellitus Duration: 10 Days Printed Prescription Changed metFORMIN (metFORMIN 500 mg oral tablet (IR)) 1 tab(s) by mouth Two (2) times a day Hypertension Diabetes mellitus Printed Prescription Changed metFORMIN (metFORMIN 500 mg oral tablet (IR)) 1 tab(s) by mouth Two (2) times a day Unchanged acetaminophen-hydrocodone ([place] 325- 5 mg oral tablet) 1 tab(s) by mouth Every 4 hours as needed for for pain Lumbar strain Duration: 3 Days Unchanged albuterol (albuterol 2.5 mg/ 3 mL (0.083%) inhalation solution) 3 Milliliter by inhalation Every 6 hours Unchanged albuterol-ipratropium (albuterol-ipratropium 2.5 mg-0.5 mg/ 3 mL inhalation solution) 3 Milliliter by inhalation Every 4 hours Unchanged cyclobenzaprine (Flexeril) by mouth Three (3) times a day Unchanged DME (Alcohol Swabs) See instructions 1 box Unchanged DME (Blood Glucose Test Machine) See instructions Device as determined by insurance coverage Unchanged DME (Blood Glucose Test Strips) See instructions Testing blood glucose TID. 1 bottle of 100 strips Unchanged DME (Lancets) See instructions Testing blood glucose TID.1 box Unchanged furosemide (furosemide 40 mg oral tablet) 1 tab(s) by mouth Once a day Unchanged gabapentin (gabapentin 600 mg oral tablet) 1 tab(s) by mouth Three (3) times a day Unchanged insulin detemir (Levemir) (Levemir 100 units/ mL 10 mL vial) 70 unit(s) Subcutaneous Daily at bedtime Unchanged lidocaine topical (Lidoderm 5% topical patch) 1 patch(es) Transdermal Once a day Unchanged oxyCODONE (oxyCODONE 15 mg oral tablet ( extended release )) 1 tab(s) by mouth Four (4) times a day Unchanged potassium chloride (Potassium Chloride (Eqv-K-Tab) 20 mEq oral tablet, extended release) 1 tab(s) by mouth Once a day Duration: 7 Days take with food Unchanged tirzepatide (Mounjaro 5 mg/ 0.5 mL subcutaneous solution) INJECT the contents OF 1 (ONE) pen under the skin once weekly DIRECTED Unchanged tiZANidine (tiZANidine 2 mg oral tablet) 1 tab(s) by mouth Every 8 hours Back pain Please take this list to your next doctor s visit. Bring all medications you take, including over the counter medications, herbals and other supplements with you to your doctor s visit. Patients and families are reminded to discard old lists and to update any records with all medication providers or retail pharmacies. Medication Leaflets doxycycline (oral/injection) (DOX manjula evangelista) Acticlate, Adoxa, Alodox, Avidoxy, Doryx, Mondoxyne NL, Monodox, Morgidox, Okebo, Oracea, Oraxyl, Targadox, Vibramycin What is the most important information I should know about doxycycline? You should not take this medicine if you are allergic to any tetracycline antibiotic. Children younger than 8 years old should use doxycycline only in cases of severe or life-threatening conditions. This medicine can cause permanent yellowing or graying of the teeth in children Using doxycycline during could harm the unborn baby or cause permanent tooth discoloration later in the baby's life. What is doxycycline? Doxycycline is a tetracycline antibiotic that Doxycycline is used to treat many different bacterial infections, such as acne, urinary tract infections, intestinal infections, eye infections, gonorrhea, chlamydia, periodontitis (gum disease), and others. Doxycycline is also used to treat blemishes, bumps, and acne-like lesions caused by rosacea. Doxycycline will not treat facial redness caused by rosacea. Some forms of doxycycline are used to prevent malaria, to treat anthrax, or to treat infections caused by mites, ticks, or lice. Doxycycline may also be used for purposes not listed in this medication guide. What should I discuss with my healthcare provider before taking doxycycline? You should not take this medicine if you are allergic to doxycycline or other tetracycline antibiotics such as demeclocycline, minocycline, tetracycline, or tigecycline. Tell your doctor if you have ever had: liver disease; kidney disease; asthma or sulfite allergy; increased pressure inside your skull; or if you also take isotretinoin, seizure medicine, or a blood thinner such as warfarin (Coumadin). If you are using doxycycline to treat gonorrhea, your doctor may test you to make sure you do not also have syphilis, another sexually transmitted disease. Taking this medicine during may affect tooth and bone development in the unborn baby. Taking doxycycline during the last half of can cause permanent tooth discoloration later in the baby's life. Tell your doctor if you are or if you become . Doxycycline can make control pills less effective. Ask your doctor about using a non-hormonal control (condom, diaphragm with spermicide) to prevent . Doxycycline can pass into breast milk and may affect bone and tooth development in a nursing . Do not breastfeed while you are taking doxycycline. Doxycycline can cause permanent yellowing or graying of the teeth in children younger than 8 years old. Children should use doxycycline only in cases of severe or life-threatening conditions such as anthrax or [place] spotted fever. The benefit of treating a serious condition may outweigh any risks to the child's tooth development. How should I take doxycycline? Follow all directions on your prescription label and read all medication guides or instruction sheets. Use the medicine exactly as directed. Take doxycycline with a full glass of water. Drink plenty of liquids while you are taking doxycycline. Read and carefully follow any Instructions for Use provided with your medicine. Ask your doctor or pharmacist if you do not understand these instructions. Most brands of doxycyline may be taken with food or milk if the medicine upsets your stomach. Different brands of doxycycline may have different instructions about taking them with or without food. Take Oracea on an empty stomach, at least 1 hour before or 2 hours after a meal. You may need to split a doxycycline tablet to get the correct dose. Follow your doctor's instructions. Swallow a delayed-release capsule or tablet whole. Do not crush, chew, break, or open it. Measure liquid medicine with the dosing syringe provided, or with a special dose-measuring spoon or medicine cup. If you do not have a dose-measuring device, ask your pharmacist for one. If you take doxycycline to prevent malaria: Start taking the medicine 1 or 2 days before entering an area where malaria is common. Continue taking the medicine every day during your stay and for at least 4 weeks after you leave the area. Doxycycline is usually given by injection only if you are unable to take the medicine by mouth. A healthcare provider will give you this injection as an infusion into a vein. Use this medicine for the full prescribed length of time, even if your symptoms quickly improve. Skipping doses can increase your risk of infection that is resistant to medication. Doxycycline will not treat a viral infection such as the flu or a common cold. Store at room temperature away from moisture, heat, and light. Throw away any unused medicine after the expiration date on the label has passed. Using doxycycline can cause damage to your kidneys. What happens if I miss a dose? Take the medicine as soon as you can, but skip the missed dose if it is almost time for your next dose. Do not take two doses at one time. What happens if I overdose? Seek emergency medical attention or call the Poison Help line at . What should I avoid while taking doxycycline? Do not take iron supplements, multivitamins, calcium supplements, antacids, or laxatives within 2 hours before or after taking doxycycline. Avoid taking any other antibiotics with doxycycline unless your doctor has told you to. Doxycycline could make you sunburn more easily. Avoid sunlight or tanning beds. Wear protective clothing and use sunscreen (SPF 30 or higher) when you are outdoors. Antibiotic medicines can cause diarrhea, which may be a sign of a new infection. If you have diarrhea that is watery or bloody, call your doctor. Do not use anti-diarrhea medicine unless your doctor tells you to. What are the possible side effects of doxycycline? Get emergency medical help if you have signs of an allergic reaction (hives, difficult breathing, swelling in your face or throat) or a severe skin reaction (fever, sore throat, burning in your eyes, skin pain, red or purple skin rash that spreads and causes blistering and peeling). Seek medical treatment if you have a serious drug reaction that can affect many parts of your body. Symptoms may include: skin rash, fever, swollen glands, flu-like symptoms, muscle aches, severe weakness, unusual bruising, or yellowing of your skin or eyes. This reaction may occur several weeks after you began using doxycycline. Call your doctor at once if you have: severe stomach pain, diarrhea that is watery or bloody; throat irritation, trouble swallowing; chest pain, irregular heart rhythm, feeling short of breath; little or no urination; low white blood cell counts--fever, chills, swollen glands, body aches, weakness, pale skin, easy bruising or bleeding; increased pressure inside the skull--severe headaches, ringing in your ears, dizziness, nausea, vision problems, pain behind your eyes; or signs of liver or pancreas problems--loss of appetite, upper stomach pain (that may spread to your back), tiredness, nausea or vomiting, fast heart rate, dark urine, jaundice (yellowing of the skin or eyes). Common side effects may include: nausea, vomiting, upset stomach, loss of appetite; mild diarrhea; skin rash or itching; darkened skin color; or vaginal itching or discharge. This is not a complete list of side effects and others may occur. Call your doctor for medical advice about side effects. You may report side effects to FDA at 8-283-NTM-5277. What other drugs will affect doxycycline? Sometimes it is not safe to use certain medications at the same time. Some drugs can affect your blood levels of other drugs you take, which may increase side effects or make the medications less effective. Other drugs may affect doxycycline, including prescription and [id number] medicines, vitamins, and herbal products. Tell your doctor about all your current medicines and any medicine you start or stop using. Where can I get more information? Your pharmacist can provide more information about doxycycline. Remember, keep this and all other medicines out of the reach of children, never share your medicines with others, and use this medication only for the indication prescribed. Every effort has been made to ensure that the information provided by [employer] is accurate, up-to-date, and complete, but no guarantee is made to that effect. Drug information contained herein may be time sensitive. [employer] information has been compiled for use by healthcare practitioners and consumers in the [place] and therefore [employer] does not warrant that uses outside of the [place] are appropriate, unless specifically indicated otherwise. [employer] drug information does not endorse drugs, diagnose patients or recommend therapy. [employer] drug information is an informational resource designed to assist licensed healthcare practitioners in caring for their patients and/or to serve consumers viewing this service as a supplement to, and not a substitute for, the expertise, skill, knowledge and judgment of healthcare practitioners. The absence of a warning for a given drug or drug combination in no way should be construed to indicate that the drug or drug combination is safe, effective or appropriate for any given patient. [employer] does not assume any responsibility for any aspect of healthcare administered with the aid of information [employer] provides. The information contained herein is not intended to cover all possible uses, directions, precautions, warnings, drug interactions, allergic reactions, or adverse effects. If you have questions about the drugs you are taking, check with your doctor, nurse or pharmacist. Copyright 7630-3779 [employer] Version: 21.04. Revision Date: 08/07/2020. metformin (met FOR min) Fortamet, Glucophage, Glucophage XR, Glumetza, MetFORMIN (Eqv-Fortamet), MetFORMIN (Eqv-Glucophage XR), MetFORMIN (Eqv-Glumetza), Riomet, Riomet ER What is the most important information I should know about metformin? You should not use this medicine if you have severe kidney disease, metabolic acidosis, or diabetic ketoacidosis (call your doctor for treatment). If you need to have any type of x-ray or CT scan using a dye that is injected into your veins, you may need to temporarily stop taking metformin. You may develop lactic acidosis, a dangerous build-up of lactic acid in your blood. Call your doctor or get emergency medical help if you have unusual muscle pain, trouble breathing, stomach pain, dizziness, feeling cold, or feeling very weak or tired. What is metformin? Metformin is used together with diet and exercise to improve blood sugar control in adults with type 2 diabetes mellitus. Metformin is sometimes used together with insulin or other medications, but metformin is not for treating type 1 diabetes. Metformin may also be used for purposes not listed in this medication guide. What should I discuss with my healthcare provider before taking metformin? You should not use metformin if you are allergic to it, or if you have: severe kidney disease; or metabolic acidosis or diabetic ketoacidosis (call your doctor for treatment). If you need to have surgery or any type of x-ray or CT scan using a dye that is injected into your veins, you may need to temporarily stop taking metformin. Be sure your caregivers know ahead of time that you are using this medication. Tell your doctor if you have ever had: kidney disease (your kidney function may need to be checked before you take this medicine); high ketone levels in your blood or urine; heart disease, congestive heart failure; liver disease; or if you also use insulin, or other oral diabetes medications. You may develop lactic acidosis, a dangerous build-up of lactic acid in your blood. This may be more likely if you have other medical conditions, a severe infection, chronic alcoholism, or if you are 65 or older. Ask your doctor about your risk. Follow your doctor's instructions about using this medicine if you are or you become . Controlling diabetes is very important during , and having high blood sugar may cause complications in both the mother and the baby. Metformin may stimulate ovulation in a premenopausal woman and may increase the risk of unintended . Talk to your doctor about your risk. You should not breastfeed while using this medicine. Metformin should not be given to a child younger than 10 years old. Some forms of metformin are not approved for use by anyone younger than 18 years old. How should I take metformin? Follow all directions on your prescription label and read all medication guides or instruction sheets. Your doctor may occasionally change your dose. Use the medicine exactly as directed. Take metformin with a meal, unless your doctor tells you otherwise. Some forms of metformin are taken only once daily with the evening meal. Follow your doctor's instructions. Do not crush, chew, or break an extended-release tablet. Swallow it whole. Measure liquid medicine carefully. Use the dosing syringe provided, or use a medicine dose-measuring device (not a kitchen spoon). Shake the oral suspension (liquid) before you measure a dose. Use the dosing syringe provided, or use a medicine dose-measuring device (not a kitchen spoon). Some tablets are made with a shell that is not absorbed or melted in the body. Part of this shell may appear in your stool. This is normal and will not make the medicine less effective. You may have low blood sugar (hypoglycemia) and feel very hungry, dizzy, irritable, confused, anxious, or shaky. To quickly treat hypoglycemia, eat or drink a fast-acting source of sugar (fruit juice, hard candy, crackers, raisins, or non-diet soda). Your doctor may prescribe a glucagon injection kit in case you have severe hypoglycemia. Be sure your family or close friends know how to give you this injection in an emergency. Blood sugar levels can be affected by stress, illness, surgery, exercise, alcohol use, or skipping meals. Ask your doctor before changing your dose or medication schedule. Metformin is only part of a complete treatment program that may also include diet, exercise, weight control, blood sugar testing, and special medical care. Follow your doctor's instructions very closely. Store at room temperature away from moisture, heat, and light. Your doctor may have you take extra vitamin B12 while you are taking metformin. Take only the amount of vitamin B12 that your doctor has prescribed. What happens if I miss a dose? Take the medicine as soon as you can, but skip the missed dose if it is almost time for your next dose. Do not take two doses at one time. What happens if I overdose? Seek emergency medical attention or call the Poison Help line at . An overdose can cause severe hypoglycemia or lactic acidosis. What should I avoid while taking metformin? Avoid drinking alcohol. It lowers blood sugar and may increase your risk of lactic acidosis. What are the possible side effects of metformin? Get emergency medical help if you have signs of an allergic reaction: hives; difficult breathing; swelling of your face, lips, tongue, or throat. Some people using metformin develop lactic acidosis, which can be fatal. Get emergency medical help if you have even mild symptoms such as: unusual muscle pain; feeling cold; trouble breathing; feeling dizzy, light-headed, tired, or very weak; stomach pain, vomiting; or slow or irregular heart rate. Common side effects may include: low blood sugar; nausea, upset stomach; or diarrhea. This is not a complete list of side effects and others may occur. Call your doctor for medical advice about side effects. You may report side effects to FDA at 0-659-PDI-5039. What other drugs will affect metformin? Many drugs can affect metformin, making this medicine less effective or increasing your risk of lactic acidosis. This includes prescription and tuml-uno-tsiurdk medicines, vitamins, and herbal products. Not all possible interactions are listed here. Tell your doctor about all your current medicines and any medicine you start or stop using. Where can I get more information? Your pharmacist can provide more information about metformin. Remember, keep this and all other medicines out of the reach of children, never share your medicines with others, and use this medication only for the indication prescribed. Every effort has been made to ensure that the information provided by [employer] is accurate, up-to-date, and complete, but no guarantee is made to that effect. Drug information contained herein may be time sensitive. [employer] information has been compiled for use by healthcare practitioners and consumers in the [place] and therefore [employer] does not warrant that uses outside of the [place] are appropriate, unless specifically indicated otherwise. [employer] drug information does not endorse drugs, diagnose patients or recommend therapy. [employer] drug information is an informational resource designed to assist licensed healthcare practitioners in caring for their patients and/or to serve consumers viewing this service as a supplement to, and not a substitute for, the expertise, skill, knowledge and judgment of healthcare practitioners. The absence of a warning for a given drug or drug combination in no way should be construed to indicate that the drug or drug combination is safe, effective or appropriate for any given patient. [employer] does not assume any responsibility for any aspect of healthcare administered with the aid of information [employer] provides. The information contained herein is not intended to cover all possible uses, directions, precautions, warnings, drug interactions, allergic reactions, or adverse effects. If you have questions about the drugs you are taking, check with your doctor, nurse or pharmacist. Copyright 1120-8751 [employer]. Version: 17.02. Revision Date: 01/11/2020. Education Materials Cellulitis Cellulitis is an infection of the deep layers of skin. A break in the skin, such as a cut or scratch, can let bacteria under the skin. If the bacteria get to deep layers of the skin, it can be serious. If not treated, cellulitis can get into the bloodstream and lymph nodes. The infection can then spread throughout the body. This causes serious illness. Cellulitis causes the affected skin to become red, swollen, warm, and sore. The reddened areas have a visible border. An open sore may leak fluid (pus). You may have a fever, chills, and pain. Cellulitis is treated with antibiotics taken for 7 to 10 days. An open sore may be cleaned and covered with cool wet gauze. Symptoms should get better 1 to 2 days after treatment is started. Make sure to take all the antibiotics for the full number of days until they are gone. Keep taking the medicine even if your symptoms go away. Home care Follow these tips: Limit the use of the part of your body with cellulitis. If the infection is on your leg, keep your leg raised while sitting. This will help to reduce swelling. Take all of the antibiotic medicine exactly as directed until it is gone. Do not miss any doses, especially during the first 7 days. Don t stop taking the medicine when your symptoms get better. Keep the affected area clean and dry. Wash your hands with soap and warm water before and after touching your skin. Anyone else who touches your skin should also wash his or her hands. Don't share towels. Follow-up care Follow up with your healthcare provider, or as advised. If your infection does not go away on the first antibiotic, your healthcare provider will prescribe a different one. When to seek medical advice Call your healthcare provider right away if any of these occur: Red areas that spread Swelling or pain that gets worse Fluid leaking from the skin (pus) Fever higher of 100.4 F (38.0 C) or higher after 2 days on antibiotics 9838-2475 [employer]. [address] [place] [address]. All rights reserved. This information is not intended as a substitute for professional medical care. Always follow your healthcare professional's instructions. COPD Flare You have had a flare-up of your COPD. COPD (chronic obstructive pulmonary disease) is a common lung disease. It causes your airways to get irritated and narrower. This makes it harder for you to breathe. Emphysema and chronic bronchitis are both types of COPD. This is a long-term (chronic) condition. This means you always have it. Sometimes it gets worse. When this happens, it is called a flare-up. Symptoms of COPD People with COPD may have symptoms most of the time. In a flare-up, your symptoms get worse. These symptoms may mean you are having a flare-up: Shortness of breath, shallow or rapid breathing, or wheezing that gets worse Lung infection Cough that gets worse More mucus, thicker mucus or mucus of a different color Tiredness, less energy, or trouble doing your normal activities Fever Chest tightness Your symptoms don t get better even when you use your normal medicines, inhalers, and nebulizer Trouble talking You feel confused Causes of flare-ups Unfortunately, a flare-up can happen even if you did everything right. And even if you followed your healthcare provider s instructions. Some causes of flare-ups are: Smoking or secondhand smoke Colds, the flu, or respiratory infections Air pollution Sudden change in the weather Dust, irritating chemicals, or strong fumes Not taking your medicines as prescribed Home care Here are some things you can do at home to treat a flare-up: Try not to panic. This makes it harder to breathe, and keeps you from doing the right things. Don t smoke or be around others who are smoking. Try to drink more fluids than normal during a flare-up, unless your healthcare provider has told you not to because of heart and kidney problems. More fluids can help loosen the mucus. Use your inhalers and nebulizer, if you have one, as you have been told to. If you were given antibiotics, take them until they are used up or your provider tells you to stop. It s important to finish the antibiotics, even though you feel better. This will make sure the infection has cleared. If you were given prednisone or another steroid, finish it even if you feel better. Preventing a flare-up Flare-ups happen. But the best way to treat one is to prevent it before it starts. Here are some pointers: Don t smoke or be around others who are smoking. Take your medicines as discussed with your healthcare provider. Talk with your provider about getting a flu shot every year. Also find out if you need a pneumonia shot. If there is a weather advisory warning to stay indoors, try to stay inside when possible. Try to eat healthy, exercise, and get plenty of sleep. Try to stay away from things that normally set you off. These include dust, chemical fumes, hairsprays, or strong perfumes. Follow-up care Follow up with your healthcare provider, or as advised. If a culture was done, you will be told if your treatment needs to be changed. You can call as directed for the results. If X-rays were done, you will be told of any new findings that may affect your care. Call 911 Call 911 if any of these occur: You have trouble breathing You feel confused or it s hard to wake you up You faint or lose consciousness You have a rapid heart rate You have new pain in your chest, arm, shoulder, neck, or upper back When to seek medical advice Call your healthcare provider right away if any of these occur: Wheezing or shortness of breath gets worse You need to use your inhalers more often than normal without relief Fever of 100.4 F (38 C) or higher, or as directed by your healthcare provider Coughing up lots of dark-colored or bloody mucus (sputum) Chest pain with each breath You don't start to get better within 24 hours Swelling of your ankles gets worse Dizziness or weakness 5521-1725 [employer]. [address] [place] [id number]. All rights reserved. This information is not intended as a substitute for professional medical care. Always follow your healthcare professional's instructions. Leg Swelling in Both Legs Swelling of the feet, ankles, and legs is called edema. It is caused by excess fluid that has collected in the tissues. Extra fluid in the body settles in the lowest part because of gravity. This is why the legs and feet are most affected. Some of the causes for edema include: Disease of the heart like congestive heart failure Standing or sitting for long periods of time. Sitting with your legs in the down position may do this. Infection of the feet or legs Blood pooling in the veins of your legs (venous insufficiency) Dilated veins in your lower leg (varicose veins) Garters or other clothing that is tight on your legs. This will cause blood to pool in your legs because the clothing limits blood flow. Some medicines. These include hormones like control pills. They also include some blood pressure medicines like calcium channel blockers and steroids. Other medicines include some antidepressants like MAO inhibitors and tricyclics. Menstrual periods that cause you to retain fluids Many types of renal disease Liver failure or cirrhosis . Some swelling is normal, but a sudden increase in leg swelling or weight gain can be a sign of a dangerous complication of .. Poor nutrition Medical treatment will depend on what is causing the swelling in your legs. Your health care provider may prescribe water pills (diuretics) to get rid of the extra fluid. Home care Follow these guidelines when caring for yourself at home: Don't wear clothing like garters that is tight on your legs. Keep your legs up while lying or sitting. If infection, injury, or recent surgery is causing the swelling, stay off your legs as much as possible until symptoms get better. If your health care provider says that your leg swelling is caused by venous insufficiency or varicose veins, don't sit or drawer in one place for long periods of time. Take breaks and walk about every few hours. Brisk walking is a good exercise. It helps circulate the blood that has collected in your leg. Talk with your provider about using support stockings to stop daytime leg swelling. If your provider says that heart disease is causing your leg swelling, follow a low-salt diet to stop extra fluid from staying in your body. Follow-up care Follow up with your health care provider, or as advised. When to seek medical advice Call your health care provider right away if any of these occur: New shortness of breath or chest pain Shortness of breath or chest pain that gets worse Swelling in both legs or ankles that gets worse Swelling of the abdomen Redness, warmth, or swelling in one leg Fever of 100.4 F (38 C) or higher, or as directed by your health care provider Yellow color to your skin or eyes Rapid, unexplained weight gain [id number] [employer]. [address] [place] [address]. All rights reserved. This information is not intended as a substitute for professional medical care. Always follow your healthcare professional's instructions. General Information on Diabetes Diabetes is a long-term health problem. It means your body doesn't make enough insulin. Or it may mean that your body can't use the insulin it makes. Insulin is a hormone in your body. It lets blood sugar (glucose) reach the cells in your body. All of your cells need glucose for fuel. When you have diabetes, the glucose in your blood builds up because it can't get into the cells. This buildup is called high blood sugar (hyperglycemia). Your blood sugar level depends on several things. It depends on what kind of food you eat and how much of it you eat. It also depends on how much exercise you get, and how much insulin you have in your body. Eating too much of the wrong kinds of food or not taking diabetes medicine on time can cause high blood sugar. Infections can cause high blood sugar even if you are taking medicines correctly. These things can also cause low blood sugar: Missing meals Not eating enough food Unplanned or heavy exercise Taking too much diabetes medicine Diabetes can cause serious problems over time if you don't get treated. These problems include: Heart disease Stroke Kidney failure Blindness Nerve pain Loss of feeling in the legs and feet Tissue (gangrene) By keeping your blood sugar under control you can prevent or delay these problems. Normal blood sugar levels are 80mg/dL to 100 mg/dL before a meal. They are less than 180 mg/dL in the 1 to 2 hours after a meal. Home care Follow these guidelines when caring for yourself at home: Follow the diet your healthcare provider gives you. Take insulin or other diabetes medicine exactly as told to. Watch your blood sugar as you are told to. Keep a log of your results. This will help your provider change your medicines to keep your blood sugar under control. Try to reach your ideal weight. You may be able to cut back on or not have to take diabetes medicine if you eat the right foods and get exercise. Don't smoke. Smoking worsens the effects of diabetes on your circulation. You are much more likely to have a heart attack if you have diabetes and you smoke. Take good care of your feet. If you have lost feeling in your feet, you may not notice an injury or infection. Check your feet and between your toes at least once a day. Use a mirror to check the bottoms of your feet. Wear a medical alert bracelet or necklace. Or carry a card in your wallet that says you have diabetes. This will help healthcare providers give you the right care if you get very ill and can't tell them that you have diabetes. Sick-day plan If you get a cold, the flu, or a bacterial or viral infection, take these steps: Look at your diabetes sick plan and call your healthcare provider as you were told to. You may need to call your provider right away if: oYour blood sugar is above 240 mg/dL while taking your diabetes medicine oYour urine ketone levels are above normal or high oYou have been vomiting more than 6 hours oYou have trouble breathing or your breath has a fruity smell oYou have a high fever oYou have a fever for several days and you are not getting better oYou get light-headed and are sleepier than usual Keep taking your diabetes pills (oral medicine) even if you have been vomiting and are feeling sick. Call your provider right away. This is because you may need insulin to lower your blood sugar until you recover from your illness. Keep taking your insulin even if you have been vomiting and are feeling sick. Call your provider right away to ask if you need to change your insulin dose. This will depend on your blood sugar results. Check your blood sugar every 2 to 4 hours, or at least 4 times a day. Check your ketones often. Watch them more often if you are vomiting and having diarrhea. Don't skip meals. Try to eat small meals on a regular schedule. Do this even if you don't feel like eating. Drink water or other liquids that don't have caffeine or calories. This will keep you from getting dehydrated. If you are nauseated or vomiting, takes small sips every 5 minutes. To prevent dehydration try to drink a cup (8 ounces) of fluids every hour while you are awake. General care Always bring a source of fast-acting sugar with you in case you have symptoms of low blood sugar (below 70 mg/dL). At the first sign of low blood sugar, eat or drink 15 to 20 grams of fast-acting sugar to raise your blood sugar. Examples are: 3 to 4 glucose tablets. You can buy these at most drugstores. 4 ounces (1/2 cup) of regular (not diet) soft drinks 4 ounces (1/2 cup) of any fruit juice 8 ounces (1 cup) of milk 5 to 6 pieces of hard candy 1 tablespoon of honey Check your blood sugar 15 minutes after treating yourself. If it is still below 70 mg/dL, take 15 to 20 more grams of fast-acting sugar. Test again in 15 minutes. If it returns to normal (70 mg/dL or above), eat a snack or meal to keep your blood sugar in a safe range. If it stays low, call your doctor or go to an emergency room. If you have had severe low blood sugar episodes, see that someone in your family is trained to give you a shot of glucagon. This will raise your blood sugar if you are unconscious and can't eat any of the above tablets or foods. Follow-up care Follow-up with your healthcare provider, or as advised. For more information about diabetes, visit the [place] [employer] website at www.diabetes.org. Or you can call [phone]. When to seek medical advice Call your healthcare provider right away if you have any of these symptoms of high blood sugar that don't go away with the above treatment suggestions: Urinating often Drowsiness Thirst Headache Nausea or vomiting Belly (abdominal) pain Eyesight changes Fast breathing Also call your provider right away if you have any of these signs of low blood sugar and they don't go away with the above treatment suggestions: Fatigue Headache Shakes Excess sweating Hunger Feeling anxious or restless Eyesight changes Drowsiness Weakness Call 911 Call 911 if any of these occur: Chest pain or shortness of breath Dizziness or fainting Weakness of an arm or leg or one side of the face Trouble speaking or seeing Confusion or loss of consciousness [id number] [employer]. [address] [place] [address]. All rights reserved. This information is not intended as a substitute for professional medical care. Always follow your healthcare professional's instructions. High Blood Pressure, To Be Confirmed, No Treatment Your blood pressure today was higher than normal. Sometimes anxiety or pain can cause a temporary rise in blood pressure. It later returns to normal. Blood pressure that is high only one time doesn t mean that you have high blood pressure (hypertension). High blood pressure is a chronic illness. But you should have your blood pressure measured again within the next few days to find out if it s still high. Blood pressure measurements are given as 2 numbers. Systolic blood pressure is the upper number. This is the pressure when the heart contracts. Diastolic blood pressure is the lower number. This is the pressure when the heart relaxes between beats. You will see your blood pressure readings written together. For example, a person with a systolic pressure of 118 and a diastolic pressure of 78 will have 118/78 written in the medical record. Blood pressure is categorized as normal, elevated, or stage 1 or stage 2 high blood pressure: Normal blood pressure is systolic of less than 120 and diastolic of less than 80 (120/80) Elevated blood pressure is systolic of 120 to 129 and diastolic less than 80 Stage 1 high blood pressure is systolic is 130 to 139 or diastolic between 80 to 89 Stage 2 high blood pressure is when systolic is 140 or higher or the diastolic is 90 or higher Lifestyle changes such as weight loss, exercise, and quitting smoking, can help manage your blood pressure. Have your blood pressure checked regularly to be sure it is under control. Home care To track your blood pressure, your provider may ask you to come into the office at different times and on different days. If your healthcare provider asks you to check your readings at home, ask him or her what times of the day to test and for how many days. Before you leave the office, ask your provider to show you how to take your blood pressure and be sure to ask questions if you don't understand something. Consider buying an automatic blood pressure monitor. Ask your provider for a recommendation as well as the proper size cuff to fit your arm. You can buy blood pressure monitors at most pharmacies. The [place] [employer] recommends the following guidelines for home blood pressure monitoring: Don't smoke or drink coffee or other caffeinated drinks for 30 minutes before taking your blood pressure. Go to the bathroom before the test. Relax for 5 minutes before taking the measurement. Sit with your back supported (don't sit on a couch or soft chair); keep your feet on the floor uncrossed. Place your arm on a solid flat surface (like a table) with the upper part of the arm at heart level. Place the middle of the cuff directly above the bend of the elbow. Check the monitor's instruction manual for an illustration. Take multiple readings. When you measure, take 2 to 3 readings one minute apart and record all of the results. Take your blood pressure at the same time every day, or as your healthcare provider recommends. Record the date, time, and blood pressure reading. Take the record with you to your next medical appointment. If your blood pressure monitor has a built-in memory, simply take the monitor with you to your next appointment. Call your provider if you have several high readings. Don't be frightened by a single high blood pressure reading, but if you get several high readings, check in with your healthcare provider. Note: When blood pressure reaches a systolic (top number) of 180 or higher OR diastolic (bottom number) of 110 or higher, seek emergency medical treatment. Follow-up care Keep all of your follow up appointments. If your blood pressure is more than 120 over 80 on 2 out of 3 days, you will need to follow up with your healthcare provider for more evaluation and treatment. Don t put this off! High blood pressure can be treated. High blood pressure that s not treated raises your risk for heart attack, heart failure, and stroke. When (more content not included)... [facility] 01[facility] Hospital Discharge instructions Patient Education 01/11/2022 03:50:12 Hypokalemia Hypokalemia Hypokalemia means a low level of potassium in the blood. This most often occurs in people who take water pills (diuretics). It can also occur because of severe vomiting or diarrhea. You may also have it if you take laxatives for long periods of time. It sometimes happens if you have low magnesium (hypomagnesemia). If you have this, your healthcare provider will treat the low magnesium first. A mild case of hypokalemia usually causes no symptoms. It is only found with blood testing. More severe potassium loss causes overall weakness, muscle or abdominal cramps, rapid or irregular heartbeats (heart palpitations), low blood pressure, and muscle weakness. Home care Take any potassium supplements as prescribed. Eat foods rich in potassium. The highest amount is found in avocado, baked potatoes, spinach, cantaloupe, cod, halibut, salmon, and scallops. White, red, or stack beans are also very good sources. A modest amount of potassium is found in orange juice, bananas, carrots, and tomato juice. If you take certain types of diuretics, you will also need to take potassium supplements. If you take a diuretic, discuss potassium supplements with your doctor. Follow-up care Follow up with your healthcare provider for a repeat blood test within the next week, or as advised by our staff. When to seek medical advice Call your healthcare provider right away if any of the following occur: Increased weakness, fatigue, or muscle cramps Dizziness Call 911 Call 911 if any of the following occur: Irregular heartbeat, extra beats, or very fast heart rate Loss of consciousness [id number] [employer]. [address] [place] [address], [place] [address]. All rights reserved. This information is not intended as a substitute for professional medical care. Always follow your healthcare professional's instructions. 01/11/2022 03:50:12 COPD Flare COPD Flare You have had a flare-up of your COPD. COPD (chronic obstructive pulmonary disease) is a common lung disease. It causes your airways to get irritated and narrower. This makes it harder for you to breathe. Emphysema and chronic bronchitis are both types of COPD. This is a long-term (chronic) condition. This means you always have it. Sometimes it gets worse. When this happens, it is called a flare-up. Symptoms of COPD People with COPD may have symptoms most of the time. In a flare-up, your symptoms get worse. These symptoms may mean you are having a flare-up: Shortness of breath, shallow or rapid breathing, or wheezing that gets worse Lung infection Cough that gets worse More mucus, thicker mucus or mucus of a different color Tiredness, less energy, or trouble doing your normal activities Fever Chest tightness Your symptoms don t get better even when you use your normal medicines, inhalers, and nebulizer Trouble talking You feel confused Causes of flare-ups Unfortunately, a flare-up can happen even if you did everything right. And even if you followed your healthcare provider s instructions. Some causes of flare-ups are: Smoking or secondhand smoke Colds, the flu, or respiratory infections Air pollution Sudden change in the weather Dust, irritating chemicals, or strong fumes Not taking your medicines as prescribed Home care Here are some things you can do at home to treat a flare-up: Try not to panic. This makes it harder to breathe, and keeps you from doing the right things. Don t smoke or be around others who are smoking. Try to drink more fluids than normal during a flare-up, unless your healthcare provider has told you not to because of heart and kidney problems. More fluids can help loosen the mucus. Use your inhalers and nebulizer, if you have one, as you have been told to. If you were given antibiotics, take them until they are used up or your provider tells you to stop. It s important to finish the antibiotics, even though you feel better. This will make sure the infection has cleared. If you were given prednisone or another steroid, finish it even if you feel better. Preventing a flare-up Flare-ups happen. But the best way to treat one is to prevent it before it starts. Here are some pointers: Don t smoke or be around others who are smoking. Take your medicines as discussed with your healthcare provider. Talk with your provider about getting a flu shot every year. Also find out if you need a pneumonia shot. If there is a weather advisory warning to stay indoors, try to stay inside when possible. Try to eat healthy, exercise, and get plenty of sleep. Try to stay away from things that normally set you off. These include dust, chemical fumes, hairsprays, or strong perfumes. Follow-up care Follow up with your healthcare provider, or as advised. If a culture was done, you will be told if your treatment needs to be changed. You can call as directed for the results. If X-rays were done, you will be told of any new findings that may affect your care. Call 911 Call 911 if any of these occur: You have trouble breathing You feel confused or it s hard to wake you up You faint or lose consciousness You have a rapid heart rate You have new pain in your chest, arm, shoulder, neck, or upper back When to seek medical advice Call your healthcare provider right away if any of these occur: Wheezing or shortness of breath gets worse You need to use your inhalers more often than normal without relief Fever of 100.4 F (38 C) or higher, or as directed by your healthcare provider Coughing up lots of dark-colored or bloody mucus (sputum) Chest pain with each breath You don't start to get better within 24 hours Swelling of your ankles gets worse Dizziness or weakness [id number] [employer]. [address] [place] [address]. All rights reserved. This information is not intended as a substitute for professional medical care. Always follow your healthcare professional's instructions. Follow Up Care 01/11/2022 02:20:09 With:ALBERTA BRICENO Address: [address] [place] [phone]- Business (1) When:2-4 days [facility]21 Hospital Discharge instructions Patient Education 08/08/2021 17:35:57 Dental Abscess Dental Abscess An abscess is a pocket of pus at the tip of a tooth root in your jaw bone. It is caused by an infection at the root of the tooth. It can cause pain and swelling of the gum, cheek, or jaw. Pain may spread from the tooth to your ear or the area of your jaw on the same side. If the abscess isn t treated, it appears as a bubble or swelling on the gum near the tooth. The pressure that builds in this swelling is the source of the pain. More serious infections cause your face to swell. An abscess can be caused by a crack in the tooth, a cavity, a gum infection, or a combination of these. Once the pulp of the tooth is exposed, bacteria can spread down the roots to the tip. If the bacteria are not stopped, they can damage the bone and soft tissue, and an abscess can form. Home care Follow these guidelines when caring for yourself at home: Don't have hot and cold foods and drinks. Your tooth may be sensitive to changes in temperature. Don t chew on the side of the infected tooth. If your tooth is chipped or cracked, or if there is a large open cavity, put oil of cloves directly on the tooth to relieve pain. You can buy oil of cloves at drugstores. Some pharmacies carry an czih-qir-qzlmhgm toothache kit. This contains a paste that you can put on the exposed tooth to make it less sensitive. Put a cold pack on your jaw over the sore area to help reduce pain. You may use cvno-zrc-ihfbblm medicine to ease pain, unless another medicine was prescribed. If you have chronic liver or kidney disease, talk with your healthcare provider before using acetaminophen or ibuprofen. Also talk with your provider if you ve had a stomach ulcer or GI bleeding. An antibiotic will be prescribed. Take it until finished, even if you are feeling better after a few days. Follow-up care Follow up with your dentist or an oral surgeon, or as advised. Once an infection occurs in a tooth, it will continue to be a problem until the infection is drained. This is done through surgery or a root canal. Or you may need to have your tooth pulled. Call 911 Call 911 if any of these occur: Unusual drowsiness Headache or stiff neck Weakness or fainting Difficulty swallowing, breathing, or opening your mouth Swollen eyelids When to seek medical advice Call your healthcare provider right away if any of these occur: Your face becomes more swollen or red Pain gets worse or spreads to your neck Fever of 100.4 F (38.0 C) or higher, or as directed by your healthcare provider Pus drains from the tooth [id number] [employer]. [address] [place] [address], [place] [address]. All rights reserved. This information is not intended as a substitute for professional medical care. Always follow your healthcare professional's instructions. Follow Up Care 08/08/2021 17:13:18 With:Dental Referral List Address:Unknown When:2-4 days Comments:Call the dentists on the referral list to schedule an appointment as soon as possible for definitive care.Otherwise, keep your scheduled appointment for follow-up on 08/20/2021.Soft diet.A very weak very hot and very cold foods and drinks.Use naproxen as for pain and antibiotic (Pen-Vee K) as prescribed.Return to the ED if worse. [facility] 07[facility]19-[facility]21 Hospital Discharge instructions Patient Education 07/19/2021 07:16:58 Dental Trauma Dental Trauma One or more of your teeth have been damaged. If the surface of the tooth is chipped, your dentist should be able to smooth or repair it with a filling or cap. Make an appointment when you can. If the tooth is broken off and sensitive to hot or cold, it s important to see a dentist or oral surgeon within 24 hours for evaluation and treatment. If the tooth is pushed out of place, the tooth socket (bone) has a break in it. You must be seen as soon as possible by your dentist or oral surgeon. He or she may be able to put the tooth back in alignment and splint it, if this was not already done by your healthcare provider. This will hold the tooth in place. If the tooth is knocked out, your dentist may be able to put it back into the socket, if this was not already done by your healthcare provider. It may be loose and could fall out again. See your dentist or oral surgeon as soon as possible. He or she will put a splint or brace on the tooth to hold it in place. The tooth may reattach and stay in place for months or years. But it may not be the same as a normal tooth. It may discolor or need a root canal to preserve it. Not all teeth that have been knocked out can be put back in place. If that s the case, put pressure on the socket with a folded gauze pad or cotton swab to prevent bleeding. See your dentist or oral surgeon as soon as possible for further evaluation. Home care Follow these tips when caring for yourself at home: Unless a splint was applied to your tooth, bite on a folded gauze pad or cotton swab to apply pressure to the tooth. This will help keep it in place until your dentist or oral surgeon sees you. Don't have very hot or very cold foods and beverages. Your tooth may be sensitive to temperature changes. Don t chew on the side of the injured tooth. Put a cold pack on your jaw over the sore area to help ease pain. You may use tywi-ira-gkbootx medicine to ease pain, unless another medicine was prescribed. If you have chronic liver or kidney disease, talk with your healthcare provider before using acetaminophen or ibuprofen. Also talk with your provider if you ve had a stomach ulcer or GI bleeding. Follow-up care Follow up with your dentist or an oral surgeon, or as advised. Call 911 Call 911 if any of these occur: Difficulty swallowing or breathing Bleeding from the tooth socket or gum that you can t control with pressure When to seek medical advice Call your healthcare provider right away if any of these occur: Your face becomes swollen or red Pain gets worse Fever of 100.4 F (38 C) or higher, or as directed by your healthcare provider [id number] [employer] [place] [address]. All rights reserved. This information is not intended as a substitute for professional medical care. Always follow your healthcare professional's instructions. 07/19/2021 07:16:13 Dental Pain Dental Pain A crack or cavity in a tooth can cause tooth pain. This is because the crack or cavity exposes the sensitive inner area of the tooth. An infection in the gum or the root of the tooth can cause pain and swelling. The pain is often made worse when you drink hot or cold beverages. It can also be worse when you bite on hard foods. Pain may spread from the tooth to your ear or the area of the jaw on the same side. Home care Follow these tips when caring for yourself at home: Don't have hot and cold foods and drinks. Your tooth may be sensitive to changes in temperature. Use toothpaste made for sensitive teeth. [place] gently up and down instead of sideways. Brushing sideways can wear away root surfaces if they are exposed. If your tooth is chipped or cracked, or if there is a large open cavity, put oil of cloves directly on the tooth to relieve pain. You can buy oil of cloves at drugstores. Some pharmacies carry an hoea-ury-elulqld toothache kit. This contains a paste that you can put on the exposed tooth to make it less sensitive. Put a cold pack on your jaw over the sore area to help reduce pain. You may use vfub-owv-qfvyxhh medicine to ease pain, unless your doctor prescribed another medicine. If you have chronic liver or kidney disease, talk with your healthcare provider before using acetaminophen or ibuprofen. Also talk with your provider if you ve had a stomach ulcer or GI bleeding. If you have signs of an infection, you will be given an antibiotic. Take it as directed. Follow-up care Follow up with your dentist, or as advised. Your pain may go away with the treatment given today. But only a dentist can fully look at and treat the cause of your pain. This will keep the pain from coming back. Call 911 Call 911 if any of these occur: Unusual drowsiness Headache or stiff neck Weakness or fainting Difficulty swallowing or breathing When to seek medical advice Call your health care provider right away if any of these occur: Your face becomes swollen or red Pain gets worse or spreads to your neck Fever of 100.4 F (38.0 C) or higher, or as directed by your healthcare provider Pus drains from the tooth [id number] [employer] [address] [place] [address]. All rights reserved. This information is not intended as a substitute for professional medical care. Always follow your healthcare professional's instructions. Follow Up Care 07/19/2021 06:58:55 With:Dental Referral List Address:Unknown When:2-4 days With:ALBERTA BRICENO Address: [address] [place] [phone]- Business (1) When:2-4 days Comments:Return to ED if symptoms worsen [facility] Evaluation + Plan note No data available for this section [facility] Note Zara Miller RN: PERFORM Event Display: [facility] Patient Summary Authored Date: [id number] Discharge Instructions Thank you for allowing [facility] to assist you with your healthcare needs. The following is important discharge information regarding your hospital visit. Diagnosis from Today's Visit Hypertension Diabetes mellitus Peripheral edema COPD - Chronic obstructive pulmonary disease Cellulitis Cellulitis Medication refill Shortness of breath What to Do Next Instructions from Your Care Team No qualifying data available. Post Acute Orders No qualifying data available. You Need to Schedule the Following Appointments Follow Up with ALBERTA BRICENO When Within 2-4 days Why: Schedule appointment as soon as possible Where: [address] [place] [phone] Business (1) Allergies [facility] Medications Please ask your primary doctor or pharmacist before taking any other medication not listed, including over the counter drugs, herbal medications, vitamins and or supplements as they may interact with your home medications. What How Much When Why Instructions Last Dose New doxycycline (doxycycline hyclate 100 mg oral tablet) 1 tab(s) by mouth Two (2) times a day Hypertension Diabetes mellitus Duration: 10 Days Printed Prescription Changed metFORMIN (metFORMIN 500 mg oral tablet (IR)) 1 tab(s) by mouth Two (2) times a day Hypertension Diabetes mellitus Printed Prescription Changed metFORMIN (metFORMIN 500 mg oral tablet (IR)) 1 tab(s) by mouth Two (2) times a day Unchanged acetaminophen-hydrocodone ([place] 325- 5 mg oral tablet) 1 tab(s) by mouth Every 4 hours as needed for for pain Lumbar strain Duration: 3 Days Unchanged albuterol (albuterol 2.5 mg/ 3 mL (0.083%) inhalation solution) 3 Milliliter by inhalation Every 6 hours Unchanged albuterol-ipratropium (albuterol-ipratropium 2.5 mg-0.5 mg/ 3 mL inhalation solution) 3 Milliliter by inhalation Every 4 hours Unchanged cyclobenzaprine (Flexeril) by mouth Three (3) times a day Unchanged DME (Alcohol Swabs) See instructions 1 box Unchanged DME (Blood Glucose Test Machine) See instructions Device as determined by insurance coverage Unchanged DME (Blood Glucose Test Strips) See instructions Testing blood glucose TID. 1 bottle of 100 strips Unchanged DME (Lancets) See instructions Testing blood glucose TID.1 box Unchanged furosemide (furosemide 40 mg oral tablet) 1 tab(s) by mouth Once a day Unchanged gabapentin (gabapentin 600 mg oral tablet) 1 tab(s) by mouth Three (3) times a day Unchanged insulin detemir (Levemir) (Levemir 100 units/ mL 10 mL vial) 70 unit(s) Subcutaneous Daily at bedtime Unchanged lidocaine topical (Lidoderm 5% topical patch) 1 patch(es) Transdermal Once a day Unchanged oxyCODONE (oxyCODONE 15 mg oral tablet ( extended release )) 1 tab(s) by mouth Four (4) times a day Unchanged potassium chloride (Potassium Chloride (Eqv-K-Tab) 20 mEq oral tablet, extended release) 1 tab(s) by mouth Once a day Duration: 7 Days take with food Unchanged tirzepatide (Mounjaro 5 mg/ 0.5 mL subcutaneous solution) INJECT the contents OF 1 (ONE) pen under the skin once weekly DIRECTED Unchanged tiZANidine (tiZANidine 2 mg oral tablet) 1 tab(s) by mouth Every 8 hours Back pain Please take this list to your next doctor s visit. Bring all medications you take, including over the counter medications, herbals and other supplements with you to your doctor s visit. Patients and families are reminded to discard old lists and to update any records with all medication providers or retail pharmacies. Medication Leaflets doxycycline (oral/injection) (DOX manjula evangelista) Acticlate, Adoxa, Alodox, Avidoxy, Doryx, Mondoxyne NL, Monodox, Morgidox, Okebo, Oracea, Oraxyl, Targadox, Vibramycin What is the most important information I should know about doxycycline? You should not take this medicine if you are allergic to any tetracycline antibiotic. Children younger than 8 years old should use doxycycline only in cases of severe or life-threatening conditions. This medicine can cause permanent yellowing or graying of the teeth in children Using doxycycline during could harm the unborn baby or cause permanent tooth discoloration later in the baby's life. What is doxycycline? Doxycycline is a tetracycline antibiotic that Doxycycline is used to treat many different bacterial infections, such as acne, urinary tract infections, intestinal infections, eye infections, gonorrhea, chlamydia, periodontitis (gum disease), and others. Doxycycline is also used to treat blemishes, bumps, and acne-like lesions caused by rosacea. Doxycycline will not treat facial redness caused by rosacea. Some forms of doxycycline are used to prevent malaria, to treat anthrax, or to treat infections caused by mites, ticks, or lice. Doxycycline may also be used for purposes not listed in this medication guide. What should I discuss with my healthcare provider before taking doxycycline? You should not take this medicine if you are allergic to doxycycline or other tetracycline antibiotics such as demeclocycline, minocycline, tetracycline, or tigecycline. Tell your doctor if you have ever had: liver disease; kidney disease; asthma or sulfite allergy; increased pressure inside your skull; or if you also take isotretinoin, seizure medicine, or a blood thinner such as warfarin (Coumadin). If you are using doxycycline to treat gonorrhea, your doctor may test you to make sure you do not also have syphilis, another sexually transmitted disease. Taking this medicine during may affect tooth and bone development in the unborn baby. Taking doxycycline during the last half of can cause permanent tooth discoloration later in the baby's life. Tell your doctor if you are or if you become . Doxycycline can make control pills less effective. Ask your doctor about using a non-hormonal control (condom, diaphragm with spermicide) to prevent . Doxycycline can pass into breast milk and may affect bone and tooth development in a nursing . Do not breastfeed while you are taking doxycycline. Doxycycline can cause permanent yellowing or graying of the teeth in children younger than 8 years old. Children should use doxycycline only in cases of severe or life-threatening conditions such as anthrax or [place] spotted fever. The benefit of treating a serious condition may outweigh any risks to the child's tooth development. How should I take doxycycline? Follow all directions on your prescription label and read all medication guides or instruction sheets. Use the medicine exactly as directed. Take doxycycline with a full glass of water. Drink plenty of liquids while you are taking doxycycline. Read and carefully follow any Instructions for Use provided with your medicine. Ask your doctor or pharmacist if you do not understand these instructions. Most brands of doxycyline may be taken with food or milk if the medicine upsets your stomach. Different brands of doxycycline may have different instructions about taking them with or without food. Take Oracea on an empty stomach, at least 1 hour before or 2 hours after a meal. You may need to split a doxycycline tablet to get the correct dose. Follow your doctor's instructions. Swallow a delayed-release capsule or tablet whole. Do not crush, chew, break, or open it. Measure liquid medicine with the dosing syringe provided, or with a special dose-measuring spoon or medicine cup. If you do not have a dose-measuring device, ask your pharmacist for one. If you take doxycycline to prevent malaria: Start taking the medicine 1 or 2 days before entering an area where malaria is common. Continue taking the medicine every day during your stay and for at least 4 weeks after you leave the area. Doxycycline is usually given by injection only if you are unable to take the medicine by mouth. A healthcare provider will give you this injection as an infusion into a vein. Use this medicine for the full prescribed length of time, even if your symptoms quickly improve. Skipping doses can increase your risk of infection that is resistant to medication. Doxycycline will not treat a viral infection such as the flu or a common cold. Store at room temperature away from moisture, heat, and light. Throw away any unused medicine after the expiration date on the label has passed. Using doxycycline can cause damage to your kidneys. What happens if I miss a dose? Take the medicine as soon as you can, but skip the missed dose if it is almost time for your next dose. Do not take two doses at one time. What happens if I overdose? Seek emergency medical attention or call the Poison Help line at . What should I avoid while taking doxycycline? Do not take iron supplements, multivitamins, calcium supplements, antacids, or laxatives within 2 hours before or after taking doxycycline. Avoid taking any other antibiotics with doxycycline unless your doctor has told you to. Doxycycline could make you sunburn more easily. Avoid sunlight or tanning beds. Wear protective clothing and use sunscreen (SPF 30 or higher) when you are outdoors. Antibiotic medicines can cause diarrhea, which may be a sign of a new infection. If you have diarrhea that is watery or bloody, call your doctor. Do not use anti-diarrhea medicine unless your doctor tells you to. What are the possible side effects of doxycycline? Get emergency medical help if you have signs of an allergic reaction (hives, difficult breathing, swelling in your face or throat) or a severe skin reaction (fever, sore throat, burning in your eyes, skin pain, red or purple skin rash that spreads and causes blistering and peeling). Seek medical treatment if you have a serious drug reaction that can affect many parts of your body. Symptoms may include: skin rash, fever, swollen glands, flu-like symptoms, muscle aches, severe weakness, unusual bruising, or yellowing of your skin or eyes. This reaction may occur several weeks after you began using doxycycline. Call your doctor at once if you have: severe stomach pain, diarrhea that is watery or bloody; throat irritation, trouble swallowing; chest pain, irregular heart rhythm, feeling short of breath; little or no urination; low white blood cell counts--fever, chills, swollen glands, body aches, weakness, pale skin, easy bruising or bleeding; increased pressure inside the skull--severe headaches, ringing in your ears, dizziness, nausea, vision problems, pain behind your eyes; or signs of liver or pancreas problems--loss of appetite, upper stomach pain (that may spread to your back), tiredness, nausea or vomiting, fast heart rate, dark urine, jaundice (yellowing of the skin or eyes). Common side effects may include: nausea, vomiting, upset stomach, loss of appetite; mild diarrhea; skin rash or itching; darkened skin color; or vaginal itching or discharge. This is not a complete list of side effects and others may occur. Call your doctor for medical advice about side effects. You may report side effects to FDA at 3-461-DNC-6706. What other drugs will affect doxycycline? Sometimes it is not safe to use certain medications at the same time. Some drugs can affect your blood levels of other drugs you take, which may increase side effects or make the medications less effective. Other drugs may affect doxycycline, including prescription and xtot-tis-akiqpiu medicines, vitamins, and herbal products. Tell your doctor about all your current medicines and any medicine you start or stop using. Where can I get more information? Your pharmacist can provide more information about doxycycline. Remember, keep this and all other medicines out of the reach of children, never share your medicines with others, and use this medication only for the indication prescribed. Every effort has been made to ensure that the information provided by [employer]') is accurate, up-to-date, and complete, but no guarantee is made to that effect. Drug information contained herein may be time sensitive. [employer] information has been compiled for use by healthcare practitioners and consumers in the [place] and therefore [employer] does not warrant that uses outside of the [place] are appropriate, unless specifically indicated otherwise. [employer] drug information does not endorse drugs, diagnose patients or recommend therapy. [employer] drug information is an informational resource designed to assist licensed healthcare practitioners in caring for their patients and/or to serve consumers viewing this service as a supplement to, and not a substitute for, the expertise, skill, knowledge and judgment of healthcare practitioners. The absence of a warning for a given drug or drug combination in no way should be construed to indicate that the drug or drug combination is safe, effective or appropriate for any given patient. [employer] does not assume any responsibility for any aspect of healthcare administered with the aid of information [employer] provides. The information contained herein is not intended to cover all possible uses, directions, precautions, warnings, drug interactions, allergic reactions, or adverse effects. If you have questions about the drugs you are taking, check with your doctor, nurse or pharmacist. Copyright 8974-2203 [employer] Version: 21.04. Revision Date: 08/07/2020. metformin (met FOR min) Fortamet, Glucophage, Glucophage XR, Glumetza, MetFORMIN (Eqv-Fortamet), MetFORMIN (Eqv-Glucophage XR), MetFORMIN (Eqv-Glumetza), Riomet, [facility] What is the most important information I should know about metformin? You should not use this medicine if you have severe kidney disease, metabolic acidosis, or diabetic ketoacidosis (call your doctor for treatment). If you need to have any type of x-ray or CT scan using a dye that is injected into your veins, you may need to temporarily stop taking metformin. You may develop lactic acidosis, a dangerous build-up of lactic acid in your blood. Call your doctor or get emergency medical help if you have unusual muscle pain, trouble breathing, stomach pain, dizziness, feeling cold, or feeling very weak or tired. What is metformin? Metformin is used together with diet and exercise to improve blood sugar control in adults with type 2 diabetes mellitus. Metformin is sometimes used together with insulin or other medications, but metformin is not for treating type 1 diabetes. Metformin may also be used for purposes not listed in this medication guide. What should I discuss with my healthcare provider before taking metformin? You should not use metformin if you are allergic to it, or if you have: severe kidney disease; or metabolic acidosis or diabetic ketoacidosis (call your doctor for treatment). If you need to have surgery or any type of x-ray or CT scan using a dye that is injected into your veins, you may need to temporarily stop taking metformin. Be sure your caregivers know ahead of time that you are using this medication. Tell your doctor if you have ever had: kidney disease (your kidney function may need to be checked before you take this medicine); high ketone levels in your blood or urine; heart disease, congestive heart failure; liver disease; or if you also use insulin, or other oral diabetes medications. You may develop lactic acidosis, a dangerous build-up of lactic acid in your blood. This may be more likely if you have other medical conditions, a severe infection, chronic alcoholism, or if you are 65 or older. Ask your doctor about your risk. Follow your doctor's instructions about using this medicine if you are or you become . Controlling diabetes is very important during , and having high blood sugar may cause complications in both the mother and the baby. Metformin may stimulate ovulation in a premenopausal woman and may increase the risk of unintended . Talk to your doctor about your risk. You should not breastfeed while using this medicine. Metformin should not be given to a child younger than 10 years old. Some forms of metformin are not approved for use by anyone younger than 18 years old. How should I take metformin? Follow all directions on your prescription label and read all medication guides or instruction sheets. Your doctor may occasionally change your dose. Use the medicine exactly as directed. Take metformin with a meal, unless your doctor tells you otherwise. Some forms of metformin are taken only once daily with the evening meal. Follow your doctor's instructions. Do not crush, chew, or break an extended-release tablet. Swallow it whole. Measure liquid medicine carefully. Use the dosing syringe provided, or use a medicine dose-measuring device (not a kitchen spoon). Shake the oral suspension (liquid) before you measure a dose. Use the dosing syringe provided, or use a medicine dose-measuring device (not a kitchen spoon). Some tablets are made with a shell that is not absorbed or melted in the body. Part of this shell may appear in your stool. This is normal and will not make the medicine less effective. You may have low blood sugar (hypoglycemia) and feel very hungry, dizzy, irritable, confused, anxious, or shaky. To quickly treat hypoglycemia, eat or drink a fast-acting source of sugar (fruit juice, hard candy, crackers, raisins, or non-diet soda). Your doctor may prescribe a glucagon injection kit in case you have severe hypoglycemia. Be sure your family or close friends know how to give you this injection in an emergency. Blood sugar levels can be affected by stress, illness, surgery, exercise, alcohol use, or skipping meals. Ask your doctor before changing your dose or medication schedule. Metformin is only part of a complete treatment program that may also include diet, exercise, weight control, blood sugar testing, and special medical care. Follow your doctor's instructions very closely. Store at room temperature away from moisture, heat, and light. Your doctor may have you take extra vitamin B12 while you are taking metformin. Take only the amount of vitamin B12 that your doctor has prescribed. What happens if I miss a dose? Take the medicine as soon as you can, but skip the missed dose if it is almost time for your next dose. Do not take two doses at one time. What happens if I overdose? Seek emergency medical attention or call the Poison Help line at . An overdose can cause severe hypoglycemia or lactic acidosis. What should I avoid while taking metformin? Avoid drinking alcohol. It lowers blood sugar and may increase your risk of lactic acidosis. What are the possible side effects of metformin? Get emergency medical help if you have signs of an allergic reaction: hives; difficult breathing; swelling of your face, lips, tongue, or throat. Some people using metformin develop lactic acidosis, which can be fatal. Get emergency medical help if you have even mild symptoms such as: unusual muscle pain; feeling cold; trouble breathing; feeling dizzy, light-headed, tired, or very weak; stomach pain, vomiting; or slow or irregular heart rate. Common side effects may include: low blood sugar; nausea, upset stomach; or diarrhea. This is not a complete list of side effects and others may occur. Call your doctor for medical advice about side effects. You may report side effects to FDA at 1-197-GFT-0975. What other drugs will affect metformin? Many drugs can affect metformin, making this medicine less effective or increasing your risk of lactic acidosis. This includes prescription and [id number] medicines, vitamins, and herbal products. Not all possible interactions are listed here. Tell your doctor about all your current medicines and any medicine you start or stop using. Where can I get more information? Your pharmacist can provide more information about metformin. Remember, keep this and all other medicines out of the reach of children, never share your medicines with others, and use this medication only for the indication prescribed. Every effort has been made to ensure that the information provided by [employer]') is accurate, up-to-date, and complete, but no guarantee is made to that effect. Drug information contained herein may be time sensitive. [employer] information has been compiled for use by healthcare practitioners and consumers in the [place] and therefore [employer] does not warrant that uses outside of the [place] are appropriate, unless specifically indicated otherwise. [employer] drug information does not endorse drugs, diagnose patients or recommend therapy. [employer] drug information is an informational resource designed to assist licensed healthcare practitioners in caring for their patients and/or to serve consumers viewing this service as a supplement to, and not a substitute for, the expertise, skill, knowledge and judgment of healthcare practitioners. The absence of a warning for a given drug or drug combination in no way should be construed to indicate that the drug or drug combination is safe, effective or appropriate for any given patient. [employer] does not assume any responsibility for any aspect of healthcare administered with the aid of information [employer] provides. The information contained herein is not intended to cover all possible uses, directions, precautions, warnings, drug interactions, allergic reactions, or adverse effects. If you have questions about the drugs you are taking, check with your doctor, nurse or pharmacist. Copyright 5085-3029 [employer] Version: 17.02. Revision Date: 01/11/2020. Education Materials Cellulitis Cellulitis is an infection of the deep layers of skin. A break in the skin, such as a cut or scratch, can let bacteria under the skin. If the bacteria get to deep layers of the skin, it can be serious. If not treated, cellulitis can get into the bloodstream and lymph nodes. The infection can then spread throughout the body. This causes serious illness. Cellulitis causes the affected skin to become red, swollen, warm, and sore. The reddened areas have a visible border. An open sore may leak fluid (pus). You may have a fever, chills, and pain. Cellulitis is treated with antibiotics taken for 7 to 10 days. An open sore may be cleaned and covered with cool wet gauze. Symptoms should get better 1 to 2 days after treatment is started. Make sure to take all the antibiotics for the full number of days until they are gone. Keep taking the medicine even if your symptoms go away. Home care Follow these tips: Limit the use of the part of your body with cellulitis. If the infection is on your leg, keep your leg raised while sitting. This will help to reduce swelling. Take all of the antibiotic medicine exactly as directed until it is gone. Do not miss any doses, especially during the first 7 days. Don t stop taking the medicine when your symptoms get better. Keep the affected area clean and dry. Wash your hands with soap and warm water before and after touching your skin. Anyone else who touches your skin should also wash his or her hands. Don't share towels. Follow-up care Follow up with your healthcare provider, or as advised. If your infection does not go away on the first antibiotic, your healthcare provider will prescribe a different one. When to seek medical advice Call your healthcare provider right away if any of these occur: Red areas that spread Swelling or pain that gets worse Fluid leaking from the skin (pus) Fever higher of 100.4 F (38.0 C) or higher after 2 days on antibiotics [id number] [employer] [address] [place] [address], [place] [address]. All rights reserved. This information is not intended as a substitute for professional medical care. Always follow your healthcare professional's instructions. COPD Flare You have had a flare-up of your COPD. COPD (chronic obstructive pulmonary disease) is a common lung disease. It causes your airways to get irritated and narrower. This makes it harder for you to breathe. Emphysema and chronic bronchitis are both types of COPD. This is a long-term (chronic) condition. This means you always have it. Sometimes it gets worse. When this happens, it is called a flare-up. Symptoms of COPD People with COPD may have symptoms most of the time. In a flare-up, your symptoms get worse. These symptoms may mean you are having a flare-up: Shortness of breath, shallow or rapid breathing, or wheezing that gets worse Lung infection Cough that gets worse More mucus, thicker mucus or mucus of a different color Tiredness, less energy, or trouble doing your normal activities Fever Chest tightness Your symptoms don t get better even when you use your normal medicines, inhalers, and nebulizer Trouble talking You feel confused Causes of flare-ups Unfortunately, a flare-up can happen even if you did everything right. And even if you followed your healthcare provider s instructions. Some causes of flare-ups are: Smoking or secondhand smoke Colds, the flu, or respiratory infections Air pollution Sudden change in the weather Dust, irritating chemicals, or strong fumes Not taking your medicines as prescribed Home care Here are some things you can do at home to treat a flare-up: Try not to panic. This makes it harder to breathe, and keeps you from doing the right things. Don t smoke or be around others who are smoking. Try to drink more fluids than normal during a flare-up, unless your healthcare provider has told you not to because of heart and kidney problems. More fluids can help loosen the mucus. Use your inhalers and nebulizer, if you have one, as you have been told to. If you were given antibiotics, take them until they are used up or your provider tells you to stop. It s important to finish the antibiotics, even though you feel better. This will make sure the infection has cleared. If you were given prednisone or another steroid, finish it even if you feel better. Preventing a flare-up Flare-ups happen. But the best way to treat one is to prevent it before it starts. Here are some pointers: Don t smoke or be around others who are smoking. Take your medicines as discussed with your healthcare provider. Talk with your provider about getting a flu shot every year. Also find out if you need a pneumonia shot. If there is a weather advisory warning to stay indoors, try to stay inside when possible. Try to eat healthy, exercise, and get plenty of sleep. Try to stay away from things that normally set you off. These include dust, chemical fumes, hairsprays, or strong perfumes. Follow-up care Follow up with your healthcare provider, or as advised. If a culture was done, you will be told if your treatment needs to be changed. You can call as directed for the results. If X-rays were done, you will be told of any new findings that may affect your care. Call 911 Call 911 if any of these occur: You have trouble breathing You feel confused or it s hard to wake you up You faint or lose consciousness You have a rapid heart rate You have new pain in your chest, arm, shoulder, neck, or upper back When to seek medical advice Call your healthcare provider right away if any of these occur: Wheezing or shortness of breath gets worse You need to use your inhalers more often than normal without relief Fever of 100.4 F (38 C) or higher, or as directed by your healthcare provider Coughing up lots of dark-colored or bloody mucus (sputum) Chest pain with each breath You don't start to get better within 24 hours Swelling of your ankles gets worse Dizziness or weakness [id number] [employer] [address] [place] [address]. All rights reserved. This information is not intended as a substitute for professional medical care. Always follow your healthcare professional's instructions. Leg Swelling in Both Legs Swelling of the feet, ankles, and legs is called edema. It is caused by excess fluid that has collected in the tissues. Extra fluid in the body settles in the lowest part because of gravity. This is why the legs and feet are most affected. Some of the causes for edema include: Disease of the heart like congestive heart failure Standing or sitting for long periods of time. Sitting with your legs in the down position may do this. Infection of the feet or legs Blood pooling in the veins of your legs (venous insufficiency) Dilated veins in your lower leg (varicose veins) Garters or other clothing that is tight on your legs. This will cause blood to pool in your legs because the clothing limits blood flow. Some medicines. These include hormones like control pills. They also include some blood pressure medicines like calcium channel blockers and steroids. Other medicines include some antidepressants like MAO inhibitors and tricyclics. Menstrual periods that cause you to retain fluids Many types of renal disease Liver failure or cirrhosis . Some swelling is normal, but a sudden increase in leg swelling or weight gain can be a sign of a dangerous complication of .. Poor nutrition Medical treatment will depend on what is causing the swelling in your legs. Your health care provider may prescribe water pills (diuretics) to get rid of the extra fluid. Home care Follow these guidelines when caring for yourself at home: Don't wear clothing like garters that is tight on your legs. Keep your legs up while lying or sitting. If infection, injury, or recent surgery is causing the swelling, stay off your legs as much as possible until symptoms get better. If your health care provider says that your leg swelling is caused by venous insufficiency or varicose veins, don't sit or drawer in one place for long periods of time. Take breaks and walk about every few hours. Brisk walking is a good exercise. It helps circulate the blood that has collected in your leg. Talk with your provider about using support stockings to stop daytime leg swelling. If your provider says that heart disease is causing your leg swelling, follow a low-salt diet to stop extra fluid from staying in your body. Follow-up care Follow up with your health care provider, or as advised. When to seek medical advice Call your health care provider right away if any of these occur: New shortness of breath or chest pain Shortness of breath or chest pain that gets worse Swelling in both legs or ankles that gets worse Swelling of the abdomen Redness, warmth, or swelling in one leg Fever of 100.4 F (38 C) or higher, or as directed by your health care provider Yellow color to your skin or eyes Rapid, unexplained weight gain [id number] [employer] [address] [place] [address]. All rights reserved. This information is not intended as a substitute for professional medical care. Always follow your healthcare professional's instructions. General Information on Diabetes Diabetes is a long-term health problem. It means your body doesn't make enough insulin. Or it may mean that your body can't use the insulin it makes. Insulin is a hormone in your body. It lets blood sugar (glucose) reach the cells in your body. All of your cells need glucose for fuel. When you have diabetes, the glucose in your blood builds up because it can't get into the cells. This buildup is called high blood sugar (hyperglycemia). Your blood sugar level depends on several things. It depends on what kind of food you eat and how much of it you eat. It also depends on how much exercise you get, and how much insulin you have in your body. Eating too much of the wrong kinds of food or not taking diabetes medicine on time can cause high blood sugar. Infections can cause high blood sugar even if you are taking medicines correctly. These things can also cause low blood sugar: Missing meals Not eating enough food Unplanned or heavy exercise Taking too much diabetes medicine Diabetes can cause serious problems over time if you don't get treated. These problems include: Heart disease Stroke Kidney failure Blindness Nerve pain Loss of feeling in the legs and feet Tissue (gangrene) By keeping your blood sugar under control you can prevent or delay these problems. Normal blood sugar levels are 80mg/dL to 100 mg/dL before a meal. They are less than 180 mg/dL in the 1 to 2 hours after a meal. Home care Follow these guidelines when caring for yourself at home: Follow the diet your healthcare provider gives you. Take insulin or other diabetes medicine exactly as told to. Watch your blood sugar as you are told to. Keep a log of your results. This will help your provider change your medicines to keep your blood sugar under control. Try to reach your ideal weight. You may be able to cut back on or not have to take diabetes medicine if you eat the right foods and get exercise. Don't smoke. Smoking worsens the effects of diabetes on your circulation. You are much more likely to have a heart attack if you have diabetes and you smoke. Take good care of your feet. If you have lost feeling in your feet, you may not notice an injury or infection. Check your feet and between your toes at least once a day. Use a mirror to check the bottoms of your feet. Wear a medical alert bracelet or necklace. Or carry a card in your wallet that says you have diabetes. This will help healthcare providers give you the right care if you get very ill and can't tell them that you have diabetes. Sick-day plan If you get a cold, the flu, or a bacterial or viral infection, take these steps: Look at your diabetes sick plan and call your healthcare provider as you were told to. You may need to call your provider right away if: oYour blood sugar is above 240 mg/dL while taking your diabetes medicine oYour urine ketone levels are above normal or high oYou have been vomiting more than 6 hours oYou have trouble breathing or your breath has a fruity smell oYou have a high fever oYou have a fever for several days and you are not getting better oYou get light-headed and are sleepier than usual Keep taking your diabetes pills (oral medicine) even if you have been vomiting and are feeling sick. Call your provider right away. This is because you may need insulin to lower your blood sugar until you recover from your illness. Keep taking your insulin even if you have been vomiting and are feeling sick. Call your provider right away to ask if you need to change your insulin dose. This will depend on your blood sugar results. Check your blood sugar every 2 to 4 hours, or at least 4 times a day. Check your ketones often. Watch them more often if you are vomiting and having diarrhea. Don't skip meals. Try to eat small meals on a regular schedule. Do this even if you don't feel like eating. Drink water or other liquids that don't have caffeine or calories. This will keep you from getting dehydrated. If you are nauseated or vomiting, takes small sips every 5 minutes. To prevent dehydration try to drink a cup (8 ounces) of fluids every hour while you are awake. General care Always bring a source of fast-acting sugar with you in case you have symptoms of low blood sugar (below 70 mg/dL). At the first sign of low blood sugar, eat or drink 15 to 20 grams of fast-acting sugar to raise your blood sugar. Examples are: 3 to 4 glucose tablets. You can buy these at most drugstores. 4 ounces (1/2 cup) of regular (not diet) soft drinks 4 ounces (1/2 cup) of any fruit juice 8 ounces (1 cup) of milk 5 to 6 pieces of hard candy 1 tablespoon of honey Check your blood sugar 15 minutes after treating yourself. If it is still below 70 mg/dL, take 15 to 20 more grams of fast-acting sugar. Test again in 15 minutes. If it returns to normal (70 mg/dL or above), eat a snack or meal to keep your blood sugar in a safe range. If it stays low, call your doctor or go to an emergency room. If you have had severe low blood sugar episodes, see that someone in your family is trained to give you a shot of glucagon. This will raise your blood sugar if you are unconscious and can't eat any of the above tablets or foods. Follow-up care Follow-up with your healthcare provider, or as advised. For more information about diabetes, visit the [place] [employer] website at www.diabetes.org. Or you can call [phone]. When to seek medical advice Call your healthcare provider right away if you have any of these symptoms of high blood sugar that don't go away with the above treatment suggestions: Urinating often Drowsiness Thirst Headache Nausea or vomiting Belly (abdominal) pain Eyesight changes Fast breathing Also call your provider right away if you have any of these signs of low blood sugar and they don't go away with the above treatment suggestions: Fatigue Headache Shakes Excess sweating Hunger Feeling anxious or restless Eyesight changes Drowsiness Weakness Call 911 Call 911 if any of these occur: Chest pain or shortness of breath Dizziness or fainting Weakness of an arm or leg or one side of the face Trouble speaking or seeing Confusion or loss of consciousness [phone] [employer]. [address] [place] [address]. All rights reserved. This information is not intended as a substitute for professional medical care. Always follow your healthcare professional's instructions. High Blood Pressure, To Be Confirmed, No Treatment Your blood pressure today was higher than normal. Sometimes anxiety or pain can cause a temporary rise in blood pressure. It later returns to normal. Blood pressure that is high only one time doesn t mean that you have high blood pressure (hypertension). High blood pressure is a chronic illness. But you should have your blood pressure measured again within the next few days to find out if it s still high. Blood pressure measurements are given as 2 numbers. Systolic blood pressure is the upper number. This is the pressure when the heart contracts. Diastolic blood pressure is the lower number. This is the pressure when the heart relaxes between beats. You will see your blood pressure readings written together. For example, a person with a systolic pressure of 118 and a diastolic pressure of 78 will have 118/78 written in the medical record. Blood pressure is categorized as normal, elevated, or stage 1 or stage 2 high blood pressure: Normal blood pressure is systolic of less than 120 and diastolic of less than 80 (120/80) Elevated blood pressure is systolic of 120 to 129 and diastolic less than 80 Stage 1 high blood pressure is systolic is 130 to 139 or diastolic between 80 to 89 Stage 2 high blood pressure is when systolic is 140 or higher or the diastolic is 90 or higher Lifestyle changes such as weight loss, exercise, and quitting smoking, can help manage your blood pressure. Have your blood pressure checked regularly to be sure it is under control. Home care To track your blood pressure, your provider may ask you to come into the office at different times and on different days. If your healthcare provider asks you to check your readings at home, ask him or her what times of the day to test and for how many days. Before you leave the office, ask your provider to show you how to take your blood pressure and be sure to ask questions if you don't understand something. Consider buying an automatic blood pressure monitor. Ask your provider for a recommendation as well as the proper size cuff to fit your arm. You can buy blood pressure monitors at most pharmacies. The [place] [employer] recommends the following guidelines for home blood pressure monitoring: Don't smoke or drink coffee or other caffeinated drinks for 30 minutes before taking your blood pressure. Go to the bathroom before the test. Relax for 5 minutes before taking the measurement. Sit with your back supported (don't sit on a couch or soft chair); keep your feet on the floor uncrossed. Place your arm on a solid flat surface (like a table) with the upper part of the arm at heart level. Place the middle of the cuff directly above the bend of the elbow. Check the monitor's instruction manual for an illustration. Take multiple readings. When you measure, take 2 to 3 readings one minute apart and record all of the results. Take your blood pressure at the same time every day, or as your healthcare provider recommends. Record the date, time, and blood pressure reading. Take the record with you to your next medical appointment. If your blood pressure monitor has a built-in memory, simply take the monitor with you to your next appointment. Call your provider if you have several high readings. Don't be frightened by a single high blood pressure reading, but if you get several high readings, check in with your healthcare provider. Note: When blood pressure reaches a systolic (top number) of 180 or higher OR diastolic (bottom number) of 110 or higher, seek emergency medical treatment. Follow-up care Keep all of your follow up appointments. If your blood pressure is more than 120 over 80 on 2 out of 3 days, you will need to follow up with your healthcare provider for more evaluation and treatment. Don t put this off! High blood pressure can be treated. High blood pressure that s not treated raises your risk for heart attack, heart failure, and stroke. When to seek medical advice Call your healthcare provider right away if any of these occur: Blood pressure reaches a systolic (top number) of 180 or higher, OR diastolic (bottom number) of 110 or higher Chest pain or shortness of breath Severe headache Throbbing or rushing sound in the ears Nosebleed Sudden severe pain in your belly (abdomen) Extreme drowsiness, confusion, or fainting Dizziness or dizziness with spinning sensation (vertigo) Weakness of an arm or leg or one side of the face You have problems speaking or seeing [id number] [employer]. [address] [place] [address]. All rights reserved. This information is not intended as a substitute for professional medical care. Always follow your healthcare professional's instructions. Additional Information VACCINATE! IT SAVES LIVES! Members of the community who have not yet received the COVID-19 vaccine and would like to receive it can visit one of [facility] vaccine clinics. There are many vaccine clinic locations within the [facility]. For locations and available times, please visit [email or web address] It is important to note that some COVID mobile vaccine clinics are held outdoors and may be canceled in rainy or stormy conditions. To learn more about pediatric vaccinations (ages 5-11), we invite you to visit the [facility] webpage. [email or web address] [email or web address] To learn more about the COVID-19 vaccine, we invite you to visit the CDC website for a list of frequently asked questions. https://www.cdc.gov/coronavirus/ 2019-ncov/vaccines/faq.html [employer] Patient Portal Access Instructions: Stay connected with your healthcare team and access your personal medical information anytime with the [employer] Patient Portal. If you would like a full copy of your medical records please contact the [facility] Medical Records Department Wednesday through Wednesday between 8a.m. and 4:30p.m. Please follow the directions below to access the portal: 1.Access the email account you provided upon registration to the [facility].2.Look for an invitation email from [facility].3.Open the email and access the invitation link: Accept Invitation to [employer]4.Fill in the required fabian to create your account. Sign into www.[employer] with your username and password that you created in the above steps to stay up to date. You can then view a summary of results, a summary of your visits, and the ability to download your summaries to your computer or send the information securely to a physician. Remember that your healthcare information is confidential, so carefully consider who you will allow to register on the [employer] Patient Portal for access to your information. You can also access the [employer] Patient Portal on the [employer]. Simply click on Health Records under Health Data and then click on the [employer] logo. HOW TO SAFELY DISPOSE OF PRESCRIPTION MEDICATIONS Please use one of the following methods to safely dispose of your unused medications. 1.Use a drug disposal kit: the drug disposal pouch allows you to safely discard your old and unused drugs. Ask your nurse to give you one when you are discharged.2.Visit a local take-back location: Many local pharmacies and police departments have programs that collect old and unwanted prescription drugs. Call your local pharmacy or go to http://bit.NeurOp/3X8Cz1d to find one close to you.3.Make use of household items: Use cat litter or old coffee grounds to dispose medications if other options are not available. Mix your drugs with these household products, seal them in an airtight container and throw it into the garbage. Call [facility]: [phone] to be sure your drugs can be disposed of in this way. Some medicines may require a different approach.4.Never flush your medications down the toilet. IF YOU HAVE BEEN PRESCRIBED AN OPIOIDS FOR PAIN If you have been prescribed an opioid (such as hydrocodone, oxycodone or morphine), it is critical to understand the possible side effects and risks of opioid pain medications. Even when taken as directed, opioids can have several side effects including: Tolerance, meaning you might need to take more of a medication for the same pain relief. Nausea, vomiting and/or constipation. Sleepiness, dizziness, dry mouth, confusion, depression or itching. Physical dependence, meaning you have withdrawal symptoms when a medication is stopped ? this can develop within a few days. KNOW YOUR RESPONSIBILITIES It is important to know exactly how much and how often to take the opioid pain medications you are prescribed. Never take opioids in higher amounts or more often than prescribed. Do not combine opioids with alcohol or other drugs that cause drowsiness, such as benzodiazepines, also known as benzos, including diazepam and alprazolam, muscle relaxants or sleep aids. Never sell or share prescription opioids. This is illegal. Store opioids in a secure place and out of reach of others (including children, family, friends and visitors). The last page(s) of this document has been signed and retained as a CHART COPY Signatures Patient Education Materials Cellulitis Skin Infection COPD Flare PERIPHERAL EDEMA, Bilateral Diabetes, General Information Hypertension, To Be Confirmed Medication Leaflets doxycycline (oral/injection), metformin My discharge plan and instructions have been reviewed and explained to me and I,SASHA JACOBS II understand my current condition and have read and understand these discharge instructions. I have received a written copy of the plan/instructions. If I have questions, I am aware that I should contact my doctor. 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 Signature: Date/Time: Relationship to Patient: Witness Name/Signature: Date/Time: [facility] Progress note No data available for this section [facility] Summary Purpose Family History No Family History Records Found Advance Directives No Advanced Directives Records Found Additional Source Comments Care Team (unrecognized sect ion and content) Personnel Name: ALBERTA BRICENO DO Address: [address] [place] [address] Care Team Personnel Name: JANAKALBERTA DO Member Role: Primary Care Physician Address: Address: [address] [place] [address] Care Team Related Persons Name: JACOBS, MAYRA Name: JACOBS, MAYRA Name: JACOBS, MAYRA Name: JACOBS, MAYRA Name: JACOBS, MAYRA Name: JACOBS, MAYRA Name: JACOBS, MAYRA Name: JACOBS, MAYRA Name: JACOBS, MAYRA Name: JACOBS, MAYRA Name: JACOBS, MAYRA Name: JACOBS, MAYRA Name: JACOBS, MAYRA Name: JACOBS, MAYRA Name: JACOBS, MAYRA Name: JACOBS MAYRA Care Team Personnel Name: ALBERTA BRICENO DO Member Role: Primary Care Physician Address: Address: [address] [place] [address] Care Team Related Persons Name: JACOBS, MAYRA Name: JACOBS, MAYRA Name: JACOBS, MAYRA Name: JACOBS, MAYRA Name: JACOBS, MAYRA Name: JACOBS, MAYRA Name: JACOBS, MAYRA Name: JACOBS, MAYRA Name: JACOBS, MAYRA Name: JACOBS, MAYRA Name: JACOBS, MAYRA Name: JACOBS, MAYRA Name: JACOBS, MAYRA Name: JACOBS, MAYRA Name: JACOBS, MAYRA Name: JACOBS, MAYRA Care Team Personnel Name: ALBERTA BRICENO DO Member Role: Primary Care Physician Address: Address: [address] [place] [address]- Care Team Related Persons Name: JACOBS, MAYRA Name: JACOBS, MAYRA Name: JACOBS, MAYRA Name: JACOBS, MAYRA Name: JACOBS, MAYRA Name: JACOBS, MAYRA Name: JACOBS, MAYRA Name: JACOBS, MAYRA Name: JACOBS, MAYRA Name: JACOBS, MAYRA Name: JACOBS, MAYRA Name: JACOBS, MAYRA Name: JACOBS, MAYRA Name: JACOBS, MAYRA Name: JACOBS, MAYRA Name: JACOBS, MAYRA Care Team Personnel Name: ALBERTA BRICENO DO Member Role: Primary Care Physician Address: Address: [address] [place] [address] Care Team Related Persons Name: JACOBS, MAYRA Name: JACOBS, MAYRA Name: JACOBS, MAYRA Name: JACOBS, MAYRA Name: JACOBS, MAYRA Name: JACOBS, MAYRA Name: JACOBS, MAYRA Name: JACOBS, MAYRA Name: JACOBS, MAYRA Name: JACOBS, MAYRA Name: JACOBS, MAYRA Name: JACOBS, MAYRA Name: JACOBS, MAYRA Name: JACOBS, MAYRA Name: JACOBS, MAYRA Name: JACOBS, MAYRA Care Team Personnel Name: ALBERTA BRICENO DO Member Role: Primary Care Physician Address: Address: [address] [place] [address]- Care Team Related Persons Name: JACOBS, MAYRA Name: JACOBS, MAYRA Name: JACOBS, MAYRA Name: JACOBS, MAYRA Name: JACOBS, MAYRA Name: JACOBS, MAYRA Name: JACOBS, MAYRA Name: JACOBS, MAYRA Name: JACOBS, MAYRA Name: JACOBS, MAYRA Name: JACOBS, MAYRA Name: JACOBS, MAYRA Name: JACOBS, MAYRA Name: JACOBS, MAYRA Name: JACOBS, MAYRA Care Team (unrecognized sect ion and content) Care Team Personnel Name: ALBERTA BRICENO DO Member Role: Primary Care Physician Address: Address: [address] [place] [address]- Care Team Related Persons Name: JACOBS, MAYRA Name: JCAOBS, MAYRA Name: JACOBS, MAYRA Name: JACOBS, MAYRA Name: JACOBS, MAYRA Name: JACOBS, MAYRA Name: JACOBS, MAYRA Name: MAYRA JACOBS Name: REYNALDO, MAYRA Name: REYNALDO, MAYRA Name: REYNALDO, MAYRA Name: REYNALDO, MAYRA Name: REYNALDO, MAYRA Name: REYNALDO, MAYRA Name: REYNALDO, MAYRA Name: MAYRA JACOBS (unrecognized sect ion and content) No Status Records Found INFORMATION SOURCE (unrecogn ized section and content) FOR RECORDS PERTAINING TO PATIENTS WHO ARE OR HAVE BEEN ENROLLED IN A CHEMICAL DEPENDENCY/SUBSTANCEABUSE PROGRAM, SOME INFORMATION MAY BE OMITTED. This clinical summary was aggregated from multiple sources. Caution should be exercised in using it in the provision of clinical care. This summary normalizes information from multiple sources, and as a consequence, information in this document may materially change the coding, format and clinical context of patient data. In addition, data may be omitted in some cases. CLINICAL DECISIONS SHOULD BE BASED ON THE PRIMARY CLINICAL RECORDS. [facility] [employer] [facility]. provides no warranty or guarantee of the accuracy or completeness of information in this document.
[2023-11-27 19:35] LABS: Anion Gap 4 (5-15); BUN 12 mg/dL (7-18); Calcium,Total 8.9 mg/dL (8.5-10.1); Chloride 104 mmol/L (98-107); Creatinine, Serum 0.75 mg/dL (0.70-1.30); EST Glomerular Filtration Rate 121 mL/min (>60); Est Glom Filt Rate - Afr Amer 146 mL/min (>60); Estimated Creatinine Clearance 270.61 ml/min; Glucose 125 mg/dL (74-106); Potassium 3.9 mmol/L (3.5-5.1); Sodium Level 139 mmol/L (136-145)
[2023-11-27 20:56] VITALS: BP 123/90; PULSE 71; RESP 16; TEMP 36.4; O2SAT 96
== END 2023-11-27 20:57 | disposition home or self-care (01) ==
PROVIDERS: Emergency Provider Emergency Medicine; PCP Family Medicine; Visit Provider Emergency Medicine
DX: L03.115 Cellulitis of right lower limb (principal); J44.9 Chronic obstructive pulmonary disease, unspecified; J96.10 Chronic respiratory failure, unspecified whether with hypoxia or hypercapnia; E66.01 Morbid (severe) obesity due to excess calories; E11.9 Type 2 diabetes mellitus without complications; L03.116 Cellulitis of left lower limb; L40.9 Psoriasis, unspecified; G47.33 Obstructive sleep apnea (adult) (pediatric); Z99.81 Dependence on supplemental oxygen; Z87.891 Personal history of nicotine dependence
CPT/HCPCS: 80048; 85025; 96365; 99282; A4216

== ENCOUNTER 2024-01-15 16:53 | Emergency (ER) | payer MEDICARE, MEDICAID, SELFPAY ==
[2024-01-15 16:54] VITALS: BP 145/92; PULSE 71; RESP 24; TEMP 35.5; O2SAT 92
[2024-01-15 16:56] VITALS: BMI 72.9
--- NOTE | 2024-01-15 17:07 | EDS_ITS ---
<Statement entered by Thu Malhotra MD - 01/15/24 19:27> I have personally performed a face to face assessment of the patient and have reviewed the ADELA Note. Patient present secondary to acute on chronic back pain. He is currently on gabapentin and oxycodone at home regularly for chronic back pain. 2 or 3 days ago he caught his toe on a step and fell forward twisting his back. He has had problems with intermittent spasms since that time. He states today he was walking in his yard when he had worsened pain and spasm. He has not been able to get comfortable. Patient lying supine in the bed. He appears uncomfortable but in no distress. Head and neck examination unremarkable. Heart is regular rate and rhythm. Lung sounds are clear. Abdomen is soft, obese, nontender. Patient has good strength and sensation in the extremities. Patient given IM Dilaudid and Norflex. After second dose of Dilaudid patient is resting comfortably and feels much improved. He will be discharged home to continue his chronic pain medications. Return instructions provided. HPI History of Present Illness Chief Complaint: Back Narrative Narrative: Patient is a 44-year-old male with history of chronic back pain, chronic respiratory failure with hypoxia on 3 L nasal cannula, morbid obesity, psoriasis who presents to the emergency department 3 days of lower back pain. Patient states he tripped going up the steps, bracing himself he denies any falling or traumatic process to his back. He states that he felt that he emi his back muscles. He states over the last 2 to 3 days the pain is beginning much worse. He is having difficulty walking. He denies any bowel or bladder continence, denies any fever chills nausea or vomiting. [facility] Medical History Ambulates with cane Asthma Back pain Chewing tobacco use Chronic acquired lymphedema COPD (chronic obstructive pulmonary disease) Degeneration of intervertebral disc of lumbosacral region Depression Diabetes Fatty liver HTN (hypertension) Loose, teeth Morbid obesity On home oxygen therapy ANTONIO (obstructive sleep apnea) Psoriasis Radiculopathy of lumbosacral region Restless legs Seizures Tobacco dependence syndrome Home Medications cyclobenzaprine 10 mg tablet 10 mg PO TID muscle relaxer 08/07/16 [History Last Taken 05/17/22] gabapentin 600 mg tablet 600 mg PO TIDCM neuropathy 08/07/16 [History Last Taken 05/17/22] oxycodone 5 mg tablet 15 mg PO TID PRN Pain 08/07/16 [History Last Taken 05/17/22] duloxetine 20 mg capsule,delayed release (Cymbalta) 20 mg PO DAILY depression 12/29/17 [History Last Taken 05/17/22] furosemide 40 mg tablet 80 mg PO DAILY water pill 12/29/17 [History Last Taken 05/17/22] metoprolol succinate 25 mg tablet,extended release 24 hr 25 mg PO BID heart 12/29/17 [History Last Taken 05/17/22] dicyclomine 10 mg capsule 20 mg PO TIDAC Pain 08/27/19 [History Last Taken 05/17/22] albuterol sulfate 2.5 mg/3 mL (0.083 %) solution for nebulization 2.5 mg (3 mL) inhalation Q4H PRN Sob &/Or Wheezing #180 mL 01/09/20 [Rx Last Taken 05/17/22] albuterol sulfate 90 mcg/actuation breath activated powder inhaler (ProAir RespiClick) 2 inh inhalation Q4H PRN shortness of breath or wheezing #1 ea 01/09/20 [Rx Last Taken 05/17/22] metformin 500 mg tablet,extended release 24 hr 500 mg PO BID 08/07/20 [History Last Taken 05/17/22] montelukast 10 mg tablet 10 mg PO QPM #30 tabs 05/09/21 [Rx Last Taken 05/17/22] tiotropium bromide 2.5 mcg/actuation mist for inhalation (Spiriva Respimat) 2 puff inhalation QHS #4 grams 11/12/21 [Rx Last Taken 05/17/22] Symbicort 160 mcg-4.5 mcg/actuation HFA aerosol inhaler (budesonide-formoterol) 2 puff inhalation BID #10.2 grams 11/13/21 [Rx Last Taken 05/17/22] cetirizine 10 mg capsule (Zyrtec) 10 mg PO HS 05/13/22 [History Last Taken 05/17/22] loperamide 2 mg capsule (Imodium A-D) 4 mg PO Q4H PRN PRN Diarrhea 05/13/22 [History Last Taken 05/17/22] clindamycin HCl 300 mg capsule 300 mg PO 4X/DAY 10 days #40 caps 12/04/22 [Rx Last Taken Unknown] clindamycin HCl 300 mg capsule (Cleocin HCl) 300 mg PO 4X/DAY 10 days #40 CAPSULES 12/04/22 [Rx Last Taken Unknown] clindamycin HCl 300 mg capsule 300 mg PO Q8H 10 days #30 caps 11/27/23 [Rx Last Taken Unknown] metaxalone 400 mg tablet 800 mg (2 x 400 mg) PO TID PRN muscle pain #20 tabs 01/15/24 [Rx Last Taken Unknown] Allergy/AdvReac Type Severity Reaction Status Date / Time No Known Allergies Allergy Verified 01/15/24 16:56 Family History Mother Diabetes Father Diabetes Heart disease Surgical History History of back surgery Social History household members: none Smoking Status: Former smoker Smokeless tobacco user: chewing tobacco alcohol intake: former substance use type: does not use ROS ROS ED ROS Narrative Constitutional: Negative for fever, chills, weight loss, weakness Eyes: Negative for vision loss, vision change, double vision ENT: Negative for any sore throat, ear pain, congestion Cardiovascular: Negative for any chest pain, tightness, palpitations Respiratory: Negative for any cough, sputum production, hemoptysis, dyspnea, dyspnea on exertion, orthopnea Gastrointestinal: Negative for any abdominal pain, nausea, vomiting, diarrhea, constipation, blood in stool, blood in vomit : Negative for any urinary frequency, dysuria, retention, blood in urine Muscle skeletal: Negative for any neck pain. Positive for lower back pain Neurological: Negative for any headache, syncope, dizziness Skin: Negative for any rashes, itching, abrasions, lacerations Psychiatric: Negative for any depression, anxiety, stress, suicidal ideation, homicidal ideation Hematologic: Negative for any excessive bruising, easy bleeding EXAM Physical Exam Narrative Exam Narrative: Vital signs reviewed. Patient is difficult to assess secondary to the size of the patient. Patient's pain with any sort of movement to his lower extremities. HEET: Head normocephalic atraumatic, TMs clear bilaterally. Posterior pharynx is clear, moist mucous membranes. Nares clear bilaterally. Neck: Supple with no lymphadenopathy or tenderness. No signs of meningismus. Cardiac: Regular rate and rhythm no murmurs gallops or rubs, equal peripheral pulses bilaterally. Respiratory: Lungs clear to auscultation bilaterally. No chest tenderness. Abdomen: Soft, nontender, nondistended. No abdominal bruit or pulsatile masses. No hepatosplenomegaly Extremities: No peripheral edema, no signs of gross trauma or deformity. Active full range of motion of all extremities. Equal strength bilateral lower extremities. Neuro: Cranial nerves II through XII intact, no focal neurological deficits. Skin: Clean dry and intact with no rash, purpura, petechiae, vesicles or pustules. Backs/flank: No CVA tenderness, no midline spinal tenderness, no deformity. Psych: Normal mood and affect. No SI, HI or acute psychosis. Const Vital Signs: 01/15/24 16:54 Temperature 96 F L Temperature Source Temporal Pulse Rate 71 Respiratory Rate 24 H Blood Pressure 145/92 H Blood Pressure Mean 109 Pulse Ox 92 Oxygen Delivery Method Nasal Cannula Oxygen Flow Rate (L/min) 2 MDM [facility] Treatment and Re-Evaluation :: Differential diagnosis includes however is not limited to: Lumbar strain, acute on chronic back pain, lumbar fracture, pathological fracture Patient appears to be in mild distress secondary to pain to his lower back. Patient states he has had pain like this, has been dealing with this for greater than 6 or 7 years. He does take Percocet as well as gabapentin daily. Patient has equal strength of bilateral lower extremities. Patient is difficult to assess secondary to the size of the patient. However patient had no trauma or contusion. Patient be treated for pain with IM Dilaudid, 60 mg IM Norflex. Insert radiology On reevaluation, the patient states the pain was from a 10 to a 9, patient is requesting more pain medicine. On reevaluation, the patient was sleeping, but woke the patient up. The patient is feeling better. He is moving his lower extremities better. He will continue taking his Percocet, gabapentin at home, I will write the patient for Skelaxin for muscle spasm. He instructed perform gentle stretching, ice and heat, at this time, he has no red flag signs, patient stable for discharge. Strict return for any worsening symptoms Discharge Plan Triage Chief Complaint: Back ED Midlevel Provider: Radhames Gan ED Provider: Thu Malhotra Dx/Rx/DC Orders Clinical Impression: Acute exacerbation of chronic low back pain Instructions: How Your Back Works, Lumbar Rotation, ED Back and Neck Pain, General Prescriptions: New metaxalone 400 mg tablet 800 mg PO TID PRN (Reason: muscle pain) Qty: 20 0RF No Action ProAir RespiClick 90 mcg/actuation aerosol powdr breath activated 2 inh INHALATION Q4H PRN (Reason: shortness of breath or wheezing) Qty: 1 6RF Rx Instructions: administer with spacer albuterol sulfate 2.5 mg /3 mL (0.083 %) solution for nebulization 2.5 mg INHALATION Q4H PRN (Reason: Sob &/Or Wheezing) Qty: 180 3RF budesonide-formoterol [Symbicort] 160-4.5 mcg/actuation HFA aerosol inhaler 2 puff INHALATION BID Qty: 10.2 3RF cyclobenzaprine 10 MG tablet 10 mg PO TID gabapentin 600 MG tablet 600 mg PO TIDCM oxycodone 5 MG tablet 15 mg PO TID PRN (Reason: Pain) furosemide 40 MG tablet 80 mg PO DAILY metoprolol succinate 25 MG tablet extended release 24 hr 25 mg PO BID duloxetine [Cymbalta] 20 MG capsule 20 mg PO DAILY dicyclomine 10 MG capsule 20 mg PO TIDAC metformin 500 MG tablet 500 mg PO BID loperamide [Imodium A-D] 2 MG capsule 4 mg PO Q4H PRN PRN (Reason: Diarrhea) Zyrtec 10 mg capsule 10 mg PO HS clindamycin HCl 300 mg capsule 300 mg PO 4X/DAY 10 Days Qty: 40 0RF clindamycin HCl [Cleocin HCl] 300 mg capsule 300 mg PO 4X/DAY 10 Days Qty: 40 0RF clindamycin HCl 300 mg capsule 300 mg PO Q8H 10 Days Qty: 30 0RF montelukast 10 mg tablet 10 mg PO QPM Qty: 30 3RF Spiriva Respimat 2.5 mcg/actuation mist 2 puff INHALATION QHS Qty: 4 3RF Primary Care Provider: Luci Licona Referrals: Luci Licona DO [Primary Care Provider] - Disposition Disposition: Home, Self Care
[2024-01-15] MEDS: HYDROmorphone 1 MG/ML Syringe IM ×2 (17:12→18:22)
[2024-01-15] MEDS: Orphenadrine 60 MG/2 ML Ampul IM (17:12)
[2024-01-15 19:28] VITALS: BP 137/91; PULSE 65; RESP 16; TEMP 37.2; O2SAT 97
== END 2024-01-15 19:30 | disposition home or self-care (01) ==
PROVIDERS: Emergency Provider Emergency Medicine; PCP Family Medicine; Visit Provider Emergency Medicine
DX: M54.50 Low back pain, unspecified (principal); J44.9 Chronic obstructive pulmonary disease, unspecified; E66.01 Morbid (severe) obesity due to excess calories; G89.29 Other chronic pain; G47.33 Obstructive sleep apnea (adult) (pediatric); Z99.81 Dependence on supplemental oxygen; Z87.891 Personal history of nicotine dependence
CPT/HCPCS: 96372; 99283

== ENCOUNTER → 2024-02-15 | Outpatient (CLI) | payer MEDICARE, MEDICAID, SELFPAY ==
--- NOTE | 2024-02-15 15:50 | RAD_ITS ---
INDICATION: DDD EXAMINATION/TECHNIQUE: X-RAY - XR Spine Lumbar Min 4 Views COMPARISON: None. FINDINGS: VERTEBRAE: Chronic appearing compression deformities of T11, L1 and L2. No acute fracture. No spondylolisthesis. Preservation of the normal lumbar lordosis. Severe multilevel facet arthropathy. DISCS: Severe multilevel degenerative disc disease and spondylosis. INCLUDED ABDOMEN: Included bowel gas pattern is non-obstructive. RAD/L/S Spine Min 4 Views IMPRESSION: No evidence of lumbar spinal fracture or spondylolisthesis. Chronic appearing compression deformities of T11, L1 and L2. Severe multilevel degenerative disc disease and spondylosis. Electronically Signed: Hi Asif MD at 23:01 EDT ,
== END | disposition home or self-care (01) ==
LOC: RAD 15:36
PROVIDERS: PCP Family Medicine; Referring Provider Clinical Nurse Specialist Adult Health; Visit Provider Clinical Nurse Specialist Adult Health
DX: M51.36 Other intervertebral disc degeneration, lumbar region (principal)
CPT/HCPCS: 72110

== ENCOUNTER 2024-05-08 08:12 | Day surgery (SDC) | payer MEDICARE, MEDICAID, SELFPAY ==
[2024-05-08] MEDS: Lidocaine 1% (5 ml sdv) 5 ML Vial (07:10)
[2024-05-08] MEDS: MethylPREDNISolone Acetate 80 MG/ML Vial (07:11)
--- NOTE | 2024-05-08 08:45 | RAD_ITS ---
PROCEDURE: Caudal block. DATE OF EXAMINATION: May 08, 2024. INDICATION: Male, 44 years old. Low back pain. FLUOROSCOPY TIME (if supplied): (10 seconds) minutes/seconds. 18.4 mGy. 2 images were submitted. RAD/Fluor Guidance for Spine Inj IMPRESSION: Intraoperative imaging provided for caudal block. Electronically Signed: Chava Gil MD at 7:41 EDT ,
[2024-05-08] MEDS: Lactated Ringers 1,000 ML 15 ML IV (08:49)
[2024-05-08 08:50] VITALS: BP 143/91; PULSE 81; RESP 20; TEMP 36.9; O2SAT 99; BMI 72.5
[2024-05-08 09:06] VITALS: BP 143/91; PULSE 81; RESP 20; TEMP 36.9; O2SAT 99
--- NOTE | 2024-05-08 09:06 | PCM.PRE.AN2 ---
ASA Classification* ASA Classification ASA Classification: 4 Assessment & Plan Anesthesia* Anesthesia Assessment Anesthesia Assessment: Discussed sedation and/or anesthesia options, risks, benefits, and alternatives with patient/parents/legal guardian/POA. Questions invited. The patient/parents/legal guardian/POA seems to understand and agrees to proceed with anesthesia plan. Reviewed the physical assessment, medical history, allergy history and patient home medications list prior to surgery/procedure/anesthetic and documented any changes. Performed airway and anesthesia risk assessments. Anesthesia Type Anesthesia Type: MAC (*see written pre anesthesia record for full assessment) Anesthesia Focused Assessment* Temperature: 98.4 F Pulse Rate: 81 Blood Pressure: 143/91 Respiratory Rate: 20 Pulse Ox: 99 Airway Assessment Mouth opens: >3 cm Mallampati Score: IV Focused Labs Anesthesia Preop lab: CBC WBC 10.7 K/mm3 (4.4-11.0) 11/27/23 19:15 RBC 4.30 M/mm3 (4.6-6.2) L 11/27/23 19:15 Hgb 12.5 g/dL (13.0-16.5) L 11/27/23 19:15 Hct 38.8 % (40-54) L 11/27/23 19:15 Plt Count 257 K/mm3 (150-450) 11/27/23 19:15 CHEMISTRY Potassium 3.9 mmol/L (3.5-5.1) 11/27/23 19:15 Sodium 139 mmol/L (136-145) 11/27/23 19:15 Magnesium 2.4 mg/dL (1.6-2.6) 11/16/18 03:25 BUN 12 mg/dL (7-18) 11/27/23 19:15 Creatinine 0.75 mg/dL (0.70-1.30) 11/27/23 19:15 Glucose 125 mg/dL (74-106) H 11/27/23 19:15 POC Glucose 167 mg/dL (74-106) H 05/18/22 10:11 COAG PT 12.5 SECONDS (11.7-14.9) 08/07/20 14:35 Pre-Assessment Diagnosis/Proposed Procedure Planned Operative Procedure(s): CAUDAL EPIDURAL STEROID INJECTION Anesthesia History 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 When Was Last Pacemaker Check QUESTION #4 FULL TEXT: You/Your Family Experience fever (hyperthermia) with Anesthesia Last Oral Intake Last Oral intake: Last Oral Intake NPO since 17:00 05/08/24 08:50 Meds taken in AM with sips of Yes 05/08/24 08:50 water? 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 service window clerk Female No 05/02/24 10:40 HX of Motion Sickness No 05/02/24 10:40 HX of N/V After Surgery No 05/02/24 10:40 Non-Smoker Yes 05/02/24 10:40 Duration of Surgery greater No 05/02/24 10:40 than 60 minutes Number of Risk Factors 1 05/02/24 10:40 PONV Score Low Risk 05/02/24 10:40 Height & Weight Height & Weight: Anesthesia: Height & Weight Height 6 ft 1 in 05/08/24 08:50 Weight: 249.476 kg 05/08/24 08:50 Body Mass Index (BMI) 72.5 05/08/24 08:50 Respiratory Assessment Respiratory Assessment - postal service window clerk: Respiratory Tract Infection Hx - postal service window clerk Hx Respiratory Tract Infection No 05/02/24 10:40 STOP Sleep Apnea STOP Sleep Apnea - postal service window clerk: STOP Sleep Apnea - postal service window clerk Hx Hypertension Yes 05/02/24 10:40 Hx Sleep Apnea Yes 05/02/24 10:40 CPAP Yes: 3-4 L 05/02/24 10:40 BIPAP No 05/02/24 10:40 Do you snore loudly (louder than talking or can be heard Do you often feel tired/ fatigued/ sleepy during daytime? Has anyone observed you stop breathing during sleep? STOP Results Positive 05/02/24 10:40 QUESTION #5 FULL TEXT : Do you snore loudly (louder than talking or can be heard through closed doors)? 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 Specify any problems Hx of Preganancy in last 3 N/A 05/02/24 10:40 Months Nurse Filling Out Transfusion NBUCHER 05/02/24 10:40 & Questions: Date: 05/02/24 05/02/24 10:40 Time: 10:41 05/02/24 10:40 Patient unable to answer at this time (ie. confused, unrespo /Reproduction History /Reproductive History - postal service window clerk: /Reproductive Hx- postal service window clerk Hx Now No 05/02/24 10:40 Gestational Age (in weeks): EDC: Hx Hx Para Hx Section SAB No 05/02/24 10:40 Active Medications Active Medications: Current Medications Generic Name Dose Route Start Last Admin Trade Name Freq PRN Reason Stop Dose Admin Lactated Ringer's 1,000 mls @ 15 mls/hr 05/08/24 08:30 05/08/24 08:49 IV 15 mls/hr .Q48H ANTHONY Administration PFSH Medical History Former smoker Loose, teeth Chewing tobacco use Depression Diabetes Ambulates with cane Fatty liver Restless legs Back pain Seizures On home oxygen therapy Asthma COPD (chronic obstructive pulmonary disease) Chronic acquired lymphedema HTN (hypertension) ANTONIO (obstructive sleep apnea) Morbid obesity Radiculopathy of lumbosacral region Degeneration of intervertebral disc of lumbosacral region Tobacco dependence syndrome Psoriasis Home Medications ?Medication ?Instructions ?Recorded ?Last Taken ?Type cyclobenzaprine 10 mg tablet 10 mg PO TID muscle relaxer 08/07/16 05/08/24 History gabapentin 600 mg tablet 600 mg PO TIDCM neuropathy 08/07/16 05/08/24 History oxycodone 5 mg tablet 15 mg PO TID PRN Pain 08/07/16 05/08/24 History duloxetine 20 mg capsule,delayed 20 mg PO DAILY depression 12/29/17 05/17/22 History release (Cymbalta) furosemide 40 mg tablet 80 mg PO DAILY water pill 12/29/17 05/08/24 History metoprolol succinate 25 mg 25 mg PO BID heart 12/29/17 05/07/24 History tablet,extended release 24 hr dicyclomine 10 mg capsule 20 mg PO TIDAC Pain 08/27/19 05/08/24 History albuterol sulfate 2.5 mg/3 mL 2.5 mg (3 mL) inhalation Q4H PRN 01/09/20 05/17/22 Rx (0.083 %) solution for nebulization Sob &/Or Wheezing #180 mL albuterol sulfate 90 mcg/actuation 2 inh inhalation Q4H PRN shortness 01/09/20 05/17/22 Rx breath activated powder inhaler of breath or wheezing #1 ea (ProAir RespiClick) metformin 500 mg tablet,extended 500 mg PO BID 08/07/20 05/08/24 History release 24 hr tiotropium bromide 2.5 2 puff inhalation QHS #4 grams 11/12/21 05/17/22 Rx mcg/actuation mist for inhalation (Spiriva Respimat) Symbicort 160 mcg-4.5 2 puff inhalation BID #10.2 grams 11/13/21 05/08/24 Rx mcg/actuation HFA aerosol inhaler (budesonide-formoterol) cetirizine 10 mg capsule (Zyrtec) 10 mg PO HS 05/13/22 05/17/22 History loperamide 2 mg capsule (Imodium 4 mg PO Q4H PRN PRN Diarrhea 05/13/22 05/17/22 History A-D) metaxalone 400 mg tablet 800 mg (2 x 400 mg) PO TID PRN 01/15/24 Unknown Rx muscle pain #20 tabs clindamycin HCl 300 mg capsule 300 mg PO Q12H 05/02/24 Unknown History gabapentin 800 mg tablet 800 mg PO .COMPLEX 05/08/24 05/08/24 History insulin glargine 100 unit/mL (3 40 unit subcut BID 05/08/24 05/08/24 History mL) subcutaneous pen (Lantus Solostar U-100 Insulin) tirzepatide 5 mg/0.5 mL 5 mg subcut QWEEK 05/08/24 04/24/24 History subcutaneous pen injector (Mounjaro) Allergy/AdvReac Type Severity Reaction Status Date / Time No Known Allergies Allergy Verified 05/08/24 08:42 Family History Mother Diabetes Father Diabetes Heart disease Surgical History History of back surgery Social History household members: none Smoking Status: Former smoker Smokeless tobacco user: chewing tobacco alcohol intake: former substance use type: does not use Review of Systems (Anesthesia) ROS Narrative System reviewed and no additional complaints, except as documented.
[2024-05-08] MEDS: 0.9% Normal Saline (Pres. free 10 ML Vial (09:36)
--- NOTE | 2024-05-08 09:41 | OP.PCM_ITS ---
Report of Operation Date of Procedure: 05/08/24 Pre-Operative Diagnosis: Lumbosacral radiculopathy, lumbosacral degenerative di sc disease, lumbosacral spinal stenosis Post-Operative Diagnosis: Lumbosacral radiculopathy, lumbosacral degenerative disc disease, lumbosacral spinal stenosis Surgery/Procedure Performed:: Diagnostic/therapeutic caudal epidural steroid injection under fluoroscopic guidance Type of Anesthesia: MAC Estimated Blood Loss (mL): Minimal Description of Procedure: DESCRIPTION OF PROCEDURE: History and physical of today was reviewed. Risks and benefits of the procedure were explained. The patient understood and agreed to proceed. Informed consent was obtained. IV inserted per routine protocol. The patient was taken to the operating room and placed in the prone position with a pillow positioned underneath the abdomen. The lower back and tailbone area was prepped and draped in a sterile fashion using iodine x3. Under fluoroscopy guidance on a lateral view, the caudal space was identified. The skin and subcutaneous tissue was anesthetized with approximately 3 mL of 1% lidocaine using a 25-gauge regular needle. Under direct visualization with fluoroscopy, using a 22-gauge 3-1/2-inch spinal needle, the needle was advanced via the skin through the sacral hiatus. The tip of the needle was passed through the sacrococcygeal ligament and advanced to approximately S4 area. After negative aspiration of blood or CSF, a total of 3 mL of contrast was injected to confirm correct placement of the needle as well as cephalad spread. The spread was followed to approximately L5 area. After confirmation on AP as well as lateral view and repeated negative aspiration, a total of 15 mL of preservative-free 0.125% Marcaine with 80 mg of Depo-Medrol was injected easily. The needle was then removed intact. The patient experienced no sign or symptoms of intrathecal or intravascular injection. The patient experienced no paresthesia. The procedure was completed without any apparent difficulty or any complications. The patient appeared to tolerate it well. ASSESSMENT AND PLAN: This is a 44-year-old male with lumbosacral radiculopathy, lumbosacral degenerative disc disease, lumbosacral spinal stenosis status post diagnostic/therapeutic caudal epidural steroid injection, patient will continue his current medications, patient will follow in approximately 2 weeks for reevaluation. Complications None
[2024-05-08 09:45] VITALS: BP 131/63; BP 143/91; PULSE 80; RESP 18; TEMP 36.3; O2SAT 97
--- NOTE | 2024-05-08 09:45 | PCM.POST.ANE ---
Anesthesia: Postop Eval I Current Vital Signs Temperature: 98.1 F Pulse Rate: 78 Blood Pressure: 131/63 Respiratory Rate: 16 Pulse Ox: 100 Oxygen Delivery Method: Room Air Assessment Airway patent: Yes Spontaneous unlabored respirations: Yes Mental status: Awake and Calm nausea: No Vomiting: No Anesthesia Complication: No Fluid Hydration Crystalloid volume administer (ml): 200 Total IV fluid infused: 200 Progress Note Anesthesia document: Postop Eval 1 completed: Yes
[2024-05-08 09:46] VITALS: BP 131/63; PULSE 78; RESP 16; TEMP 36.7; O2SAT 100
[2024-05-08 09:50] VITALS: BP 143/91; BP 174/81; PULSE 81; RESP 16; O2SAT 98
--- NOTE | 2024-05-08 09:50 | POSTOPAN2_ITS ---
Anesthesia Postop Eval I Sum Postop Eval Completion status Anesthesia document: Postop Eval 1 completed: Yes Anesthesia Postop Eval I Summary Anesthesia Postop Eval I Summary: Anesthesia Postop Eval I: Assessment Summary Airway patent Yes 05/08/24 09:46 GLASS ENAMEL [email or web address] Spontaneous unlabored Yes 05/08/24 09:46 GLASS ENAMEL MIXERANA respirations Mental status Awake,Calm 05/08/24 09:46 GLASS ENAMEL [email or web address] nausea No 05/08/24 09:46 GLASS ENAMEL [email or web address].CHARAN Vomiting No 05/08/24 09:46 GLASS ENAMEL MIXERANA Anesthesia Postop Eval I: Fluid Summary Crystalloid volume administer 200 05/08/24 09:46 GLASS ENAMEL [email or web address].CHARAN (ml) Colloids volume administered ( ml) Blood Product volume administered (ml) Total IV fluid infused 200 05/08/24 09:46 GLASS ENAMEL MIXERANA Anesthesia Postop Eval I: Summary Notes Anesthesia Complication No 05/08/24 09:46 TRIPP Anesthesia Complication Comment: Post-operative progress note Anesthesia: Postop Eval II Evaluation Mental status: Awake Pain Level: 0 nausea: No Vomiting: No
--- NOTE | 2024-05-08 09:50 | PCM.POSTANE2 ---
Anesthesia Postop Eval I Sum Postop Eval Completion status Anesthesia document: Postop Eval 1 completed: Yes Anesthesia Postop Eval I Summary Anesthesia Postop Eval I Summary: Anesthesia Postop Eval I: Assessment Summary Airway patent Yes 05/08/24 09:46 MOLD [email or web address].[email or web address] Spontaneous unlabored Yes 05/08/24 09:46 MOLD BREAKERNAA respirations Mental status Awake,Calm 05/08/24 09:46 MOLD [email or web address].CHARAN nausea No 05/08/24 09:46 MOLD BREAKER.CHARAN Vomiting No 05/08/24 09:46 MOLD BREAKERANA Anesthesia Postop Eval I: Fluid Summary Crystalloid volume administer 200 05/08/24 09:46 MOLD BREAKER.CHARAN (ml) Colloids volume administered ( ml) Blood Product volume administered (ml) Total IV fluid infused 200 05/08/24 09:46 MOLD BREAKERANA Anesthesia Postop Eval I: Summary Notes Anesthesia Complication No 05/08/24 09:46 TRIPP Anesthesia Complication Comment: Post-operative progress note Anesthesia: Postop Eval II Evaluation Mental status: Awake Pain Level: 0 nausea: No Vomiting: No
[2024-05-08 09:55] VITALS: BP 143/91; BP 147/65; PULSE 82; RESP 16; TEMP 36.3; O2SAT 100
[2024-05-08 09:56] LABS: Bedside Glucose 131 mg/dL (74-106)
== END 2024-05-08 10:32 | disposition home or self-care (01) ==
LOC: SDC 08:13 → AC 08:14
PROVIDERS: PCP Family Medicine; Referring Provider Anesthesiology Pain Medicine; Visit Provider Anesthesiology Pain Medicine
PROC: 3E0S3BZ Introduction of Anesthetic Agent into Epidural Space, Percutaneous Approach (ICD-10-PCS; CPT 62282; principal; 2024-05-08 09:40)
DX: M51.17 Intervertebral disc disorders with radiculopathy, lumbosacral region (principal); J44.9 Chronic obstructive pulmonary disease, unspecified; Z79.4 Long term (current) use of insulin; E11.9 Type 2 diabetes mellitus without complications; M48.07 Spinal stenosis, lumbosacral region; G47.33 Obstructive sleep apnea (adult) (pediatric); I10 Essential (primary) hypertension; F32.A Depression, unspecified; Z79.51 Long term (current) use of inhaled steroids; Z79.899 Other long term (current) drug therapy; Z87.891 Personal history of nicotine dependence
CPT/HCPCS: 62323; 01992; 64483; 77003; 82962; J7120; J3490

== ENCOUNTER 2025-08-17 13:08 | Emergency (ER) | payer MEDICARE, MEDICAID, SELFPAY ==
[2025-08-17 13:09] VITALS: BP 158/80; PULSE 115; RESP 20; TEMP 36.6; O2SAT 99
[2025-08-17 14:08] VITALS: BMI 66.9
--- NOTE | 2025-08-17 14:39 | US_ITS ---
PROCEDURE: TESTICULAR WITH ARTERIAL FLOW 08/17/2025 REASON FOR EXAM: SWELLING OF THE TESTICLE, RIGHT TESTICLE PAIN TECHNIQUE: Procedure Code: USTES Modality: US Procedure: TESTICULAR WITH ARTERIAL FLOW COMPARISON: None. FINDINGS: RIGHT TESTICLE: Normal echotexture and size measuring 4.3 x 3.6 x 3.5 cm. No mass. Normal Doppler flow. LEFT TESTICLE: Normal echotexture and size measuring 5.3 x 3.3 x 2.5 cm. No mass. Normal Doppler flow. EPIDIDYMIDES: Epididymal heads measuring 1.4 x 1.9 x 2.0 cm on the right and 1.2 x 0.8 x 1.4 cm on the left. Anechoic epididymal head cysts bilaterally, the largest measuring 1.3 x 1.2 x 1.4 cm on the right and 0.7 x 0.7 x 0.8 cm on the left. SCROTUM: Inferior to the right testis within the lower scrotal sac, there is a poorly marginated, complex heterogeneous extratesticular lesion measuring approximately 4.8 x 4.2 x 4.4 cm. Internal flow is minimal on color Doppler evaluation. The lesion does not arise from the testis itself. There is diffuse scrotal wall thickening and small hydroceles bilaterally. No varicocele. US/Testicular with Arterial Flow IMPRESSION: 1. 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 Differential considerations include an evolving hematoma, phlegmon/early abscess, or less likely benign or malignant paratesticular neoplasm. Short interval follow-up versus further imaging with MRI may be helpful depending on clinical context. 2. Diffuse scrotal wall thickening and small bilateral hydroceles, compatible with nonspecific inflammatory or reactive changes. 3. Epididymal head cysts bilaterally. Reading Location: [id number]
[2025-08-17 15:06] LABS: Mucous, Urine 0 SEEN /hpf (<or=2+)
[2025-08-17 15:08] LABS: Hematocrit 42.1 % (40-54); Hemoglobin 14.6 g/dL (13.0-16.5); Immature Granulocytes Count 0.040 X10^3/uL (0.0-0.0); Mean Corp Hgb Conc 34.7 g/dL (32-36); Mean Corpuscular Volume 86.4 fL (80-94); Mean Platelet Vol. 9.9 fl (6.2-12.0); NRBC Flagged by Analyzer 0 % (0-5); Platelet Count 251 K/mm3 (150-450); RBC Distribution Width CV 13.1 % (11.6-14.6); RBC Distribution Width SD 41.0 fl (35.1-43.9); Red Blood Count 4.87 M/mm3 (4.6-6.2); White Blood Count 11.0 K/mm3 (4.4-11.0)
[2025-08-17 15:11] LABS: Color, Urine Yellow (Yellow); Glucose, Dipstick 1000 mg/dl (Normal); Ketone-Dipstick 5 mg/dl (Negative); Leukocyte Esterase-Dipstick 25 /ul (Negative); Nitrite-Dipstick Negative (Negative); Occult Blood-Urine 150 /ul (Negative); Protein-Dipstick 15 mg/dl (Negative); Specific Gravity, Urine 1.010 (1.002-1.030); Urine Bilirubin Dipstick Negative (Negative)
[2025-08-17 15:20] LABS: Red Blood Cells-Urine 0-5 SEEN /hpf (0-5); Squamous Epithelial Cells - UA 0-5 SEEN /hpf (0-5)
[2025-08-17 15:33] LABS: Anion Gap 12 (5-15); BUN 7 mg/dL (4-19); BUN/Creat Ratio 8.4 RATIO (10-20); Calcium,Total 9.4 mg/dL (7.6-11.0); Carbon Dioxide 27.6 mmol/L (21.0-32.0); Chloride 91 mmol/L (98-108); Estimated Creatinine Clearance 227.48 ml/min (50-250); Glucose 446 mg/dL (70-99); Potassium 3.4 mmol/L (3.3-5.1)
--- NOTE | 2025-08-17 16:24 | EX.ED.GUMALE ---
HPI History of Present Illness Chief Complaint: Male Pain/Injury Narrative Narrative: Chief complaint and HPI: 45-year-old male with past medical history of psoriasis, COPD, HTN, obesity, diabetes presents for evaluation of bilateral scrotal swelling. Patient states he developed swelling in his right testicle last week in which he was seen at [place] emergency department. States he had a testicular ultrasound that was unremarkable as well as a UTI that was treated with antibiotics. Patient completed the antibiotics. Patient states the scrotal swelling has never improved. States that his left scrotum is now swollen which is why presents to the emergency department. He admits to mild right testicular pain. He denies any fever, chills, shortness of breath, chest pain abdominal pain, nausea, vomiting, dysuria. Review of systems: See HPI Medications: As listed on the chart Allergies: As listed on the chart PFSH: Per chart Vital signs: As listed on the chart. Reviewed. Physical exam: Gen: A&O x3, NAD Head: Normocephalic, atraumatic Eyes: No sclera icterus, conjunctiva clear ENT: Moist mucous membranes CV: RRR, no murmurs, no peripheral edema Resp: Lungs CTA BL, no w/r/c GI: Obese, abd soft, non-distended, non-tender, no r/r/g : Circumcised penis. No penile tenderness or discharge. No penile swelling. Mild bilateral scrotal swelling with mild erythema. No warmth, fluctuance, rash, crepitus, bullae. Normal lie and position of the testicles. Mild right-sided testicular tenderness diffusely. No palpable hernias. Musc: Full ROM, no deformity Skin: Warm, dry Psych: Cooperative, appropriate mood and affect [facility] Medical History Former smoker Loose, teeth Chewing tobacco use Depression Diabetes Ambulates with cane Fatty liver Restless legs Back pain Seizures On home oxygen therapy Asthma COPD (chronic obstructive pulmonary disease) Chronic acquired lymphedema HTN (hypertension) ANTONIO (obstructive sleep apnea) Morbid obesity Radiculopathy of lumbosacral region Degeneration of intervertebral disc of lumbosacral region Tobacco dependence syndrome Psoriasis Home Medications Medication Instructions Recorded Last Taken Type cyclobenzaprine 10 mg tablet 10 mg PO TID muscle relaxer 08/07/16 05/08/24 History gabapentin 600 mg tablet 600 mg PO TIDCM neuropathy 08/07/16 05/08/24 History oxycodone 5 mg tablet 15 mg PO TID PRN Pain 08/07/16 05/08/24 History duloxetine 20 mg capsule,delayed 20 mg PO DAILY depression 12/29/17 05/17/22 History release (Cymbalta) furosemide 40 mg tablet 80 mg PO DAILY water pill 12/29/17 05/08/24 History metoprolol succinate 25 mg 25 mg PO BID heart 12/29/17 05/07/24 History tablet,extended release 24 hr dicyclomine 10 mg capsule 20 mg PO TIDAC Pain 08/27/19 05/08/24 History albuterol sulfate 2.5 mg/3 mL 2.5 mg (3 mL) inhalation Q4H PRN 01/09/20 05/17/22 Rx (0.083 %) solution for nebulization Sob &/Or Wheezing #180 mL albuterol sulfate 90 mcg/actuation 2 inh inhalation Q4H PRN shortness 01/09/20 05/17/22 Rx breath activated powder inhaler of breath or wheezing #1 ea (ProAir RespiClick) metformin 500 mg tablet,extended 500 mg PO BID 08/07/20 05/08/24 History release 24 hr tiotropium bromide 2.5 2 puff inhalation QHS #4 grams 11/12/21 05/17/22 Rx mcg/actuation mist for inhalation (Spiriva Respimat) Symbicort 160 mcg-4.5 2 puff inhalation BID #10.2 grams 11/13/21 05/08/24 Rx mcg/actuation HFA aerosol inhaler (budesonide-formoterol) cetirizine 10 mg capsule (Zyrtec) 10 mg PO HS 05/13/22 05/17/22 History loperamide 2 mg capsule (Imodium 4 mg PO Q4H PRN PRN Diarrhea 05/13/22 05/17/22 History A-D) metaxalone 400 mg tablet 800 mg (2 x 400 mg) PO TID PRN 01/15/24 Unknown Rx muscle pain #20 tabs clindamycin HCl 300 mg capsule 300 mg PO Q12H 05/02/24 Unknown History gabapentin 800 mg tablet 800 mg PO .COMPLEX 05/08/24 05/08/24 History insulin glargine 100 unit/mL (3 40 unit subcut BID 05/08/24 05/08/24 History mL) subcutaneous pen (Lantus Solostar U-100 Insulin) tirzepatide 5 mg/0.5 mL 5 mg subcut QWEEK 05/08/24 04/24/24 History subcutaneous pen injector (Mounjaro) Allergy/AdvReac Type Severity Reaction Status Date / Time No Known Allergies Allergy Verified 08/17/25 13:11 Family History Mother Diabetes Father Diabetes Heart disease Surgical History History of back surgery Social History household members: none Smoking Status: Current some day smoker tobacco type: cigarettes Smokeless tobacco user: chewing tobacco alcohol intake: former substance use type: does not use EXAM Physical Exam Const Vital Signs: 08/17/25 13:09 Temperature 98 F Temperature Source Oral Pulse Rate 115 H Respiratory Rate 20 H Blood Pressure 158/80 H Blood Pressure Mean 106 Pulse Ox 99 Oxygen Delivery Method Room Air MDM MDM MDM Narrative Medical decision making narrative: 45-year-old male with past medical history of psoriasis, COPD, HTN, obesity, diabetes presents for evaluation of bilateral scrotal swelling. Patient states he developed swelling in his right testicle last week in which he was seen at [place] emergency department. States he had a testicular ultrasound that was unremarkable as well as a UTI that was treated with antibiotics. Patient completed the antibiotics. Patient states the scrotal swelling has never improved. States that his left scrotum is now swollen which is why presents to the emergency department. He admits to mild right testicular pain. See physical exam findings. Differential diagnosis includes but is not limited to dependent scrotal swelling, hydrocele, epididymitis, UTI, cellulitis, less likely testicular torsion. Toradol given for pain. Laboratory workup ordered. Vitals are stable other than mild tachycardia. May be secondary to pain. Toradol ordered. CBC unremarkable without leukocytosis or anemia. BMP shows hyponatremia at 130. Patient has not had labs in our system since November 2023. I suspect this is chronic given he has been eating and drinking well. On chart review he his history of hyponatremia in the past. No OSORIO. Patient has hyperglycemia 446. Patient is a diabetic on insulin. UA positive for glucose, ketones, blood. Positive for pyuria but negative for bacteria. Patient denies any dysuria. States he was just recently treated for UTI. Will not treat at this time but will send for culture. Testicular ultrasound shows complex extratesticular mass inferior to the right testes, 4.8 cm with minimal vascularity. Differential considerations include an evolving hematoma, phlegmon/early abscess, or less likely benign or malignant paratesticular neoplasm. Diffuse scrotal wall thickening and small bilateral hydroceles, compatible with nonspecific inflammatory reactive changes. Epididymal head cysts bilaterally. Given findings of testicular ultrasound, will obtain CT of the pelvis to better identify this extratesticular mass. Patient was updated on the results and the plan thus far. Patient signed out to Dr. Mondragon. Who will await ultrasound findings. Lab Data Labs: Laboratory Results - last 24 hr 08/17/25 08/17/25 14:53 15:00 WBC 11.0 RBC 4.87 Hgb 14.6 Hct 42.1 MCV 86.4 MCH 30.0 MCHC 34.7 RDW Std Deviation 41.0 RDW Coeff of [place] 13.1 Plt Count 251 MPV 9.9 Immature Gran % (Auto) 0.400 Neut % (Auto) 73.4 H Lymph % (Auto) 18.2 L [place] % (Auto) 6.3 Eos % (Auto) 1.3 Baso % (Auto) 0.4 Absolute Neuts (auto) 8.1 H Absolute Lymphs (auto) 2.00 Nucleated RBC % 0 Sodium 130 L Potassium 3.4 Chloride 91 L Carbon Dioxide 27.6 Anion Gap 12 BUN 7 Creatinine 0.82 Estim Creat Clear Calc 227.48 Est GFR (MDRD) Non-Af 111 BUN/Creatinine Ratio 8.4 L Glucose 446 H Calcium 9.4 Urine Color Yellow Urine Clarity Clear Urine pH 6.5 Ur Specific [place] 1.010 Urine Protein 15 H Urine Glucose (UA) 1000 H Urine Ketones 5 H Urine Occult Blood 150 H Urine Nitrite Negative Urine Bilirubin Negative Urine Urobilinogen Normal Ur Leukocyte Esterase 25 H Urine RBC 0-5 SEEN Urine WBC 5-10 SEEN Ur Squamous Epith Cells 0-5 SEEN Urine Bacteria 0 SEEN Urine Mucus 0 SEEN Radiography Diagnostic Testing: Clinical Impression(s) from Imaging Studies Testicular Ultrasound 08/17/25 14:39 IMPRESSION: 1. Complex extratesticular mass inferior to the right testis (4.8 cm), with minimal vascularity. Differential considerations include an evolving hematoma, phlegmon/early abscess, or less likely benign or malignant paratesticular neoplasm. Short interval follow-up versus further imaging with MRI may be helpful depending on clinical context. 2. Diffuse scrotal wall thickening and small bilateral hydroceles, compatible with nonspecific inflammatory or reactive changes. 3. Epididymal head cysts bilaterally. Reading Location: [facility] Discharge Plan Triage Chief Complaint: Male Pain/Injury ED Provider: Ayden Beckman Dx/Rx/DC Orders Prescriptions: No Action ProAir RespiClick 90 mcg/actuation aerosol powdr breath activated 2 inh INHALATION Q4H PRN (Reason: shortness of breath or wheezing) Qty: 1 6RF Rx Instructions: administer with spacer albuterol sulfate 2.5 mg /3 mL (0.083 %) solution for nebulization 2.5 mg INHALATION Q4H PRN (Reason: Sob &/Or Wheezing) Qty: 180 3RF budesonide-formoterol [Symbicort] 160-4.5 mcg/actuation HFA aerosol inhaler 2 puff INHALATION BID Qty: 10.2 3RF cyclobenzaprine 10 MG tablet 10 mg PO TID gabapentin 600 MG tablet 600 mg PO TIDCM oxycodone 5 MG tablet 15 mg PO TID PRN (Reason: Pain) furosemide 40 MG tablet 80 mg PO DAILY metoprolol succinate 25 MG tablet extended release 24 hr 25 mg PO BID duloxetine [Cymbalta] 20 MG capsule 20 mg PO DAILY dicyclomine 10 MG capsule 20 mg PO TIDAC metformin 500 MG tablet 500 mg PO BID loperamide [Imodium A-D] 2 MG capsule 4 mg PO Q4H PRN PRN (Reason: Diarrhea) Zyrtec 10 mg capsule 10 mg PO HS metaxalone 400 mg tablet 800 mg PO TID PRN (Reason: muscle pain) Qty: 20 0RF clindamycin HCl 300 mg capsule 300 mg PO Q12H gabapentin 800 mg tablet 800 mg PO .COMPLEX Rx Instructions: 800 mg orally 1 tablet in AM and at noon, 2 tablets at bedtime; insulin glargine [Lantus Solostar U-100 Insulin] 100 unit/mL (3 mL) insulin pen 40 unit subcut BID Mounjaro 5 mg/0.5 mL pen injector 5 mg subcut QWEEK Rx Instructions: on saturdays Spiriva Respimat 2.5 mcg/actuation mist 2 puff INHALATION QHS Qty: 4 3RF Primary Care Provider: Luci Licona Referrals: Luci Licona DO [Primary Care Provider, Family Practice] Print Language: Pakistani
--- OUTSIDE RECORDS SUMMARY | 2025-08-17 16:46 | XMS RPT_ITS | CCD ---
Author Organization [facility] Care Team Providers Care Commander [employer] Name Role Phone LIVAN GIBBS, DR VERMA A Primary Care Physician Livan, Dr. Verma Primary Care Provider Dr. Luci Licona Referring Provider [phone] Miguel Powell Attending Provider LIVAN GIBBS, DR VERMA A Primary Care Physician Dr. Luci Licona Primary Care Provider Dr. Juan Carlos Almeida Attending Provider [phone] Dr. Dex Velasco Referring Provider Malys, Luci Primary Care Unavailable [place], Santa Referring Unavailable Van, Santa Attending Unavailable Malys, Luci Primary Care Unavailable Thu Malhotra Attending Unavailable Angel Grande Attending Unavailable Malys, Luci Primary Care Unavailable Malys, Luci Primary Care Unavailable Morgan Heller Referring Unavailable Morgan Heller Attending Unavailable MALYS DO, DR LUCI Soto Primary Care Unavailable REICHFIELD DO, ELIZABETH Attending Unavailable MALYS DO, DR LUCI Soto Primary Care Unavailable RADHA STAPLETON MD Attending Unavail able VAN TELEVISION INSTALLER, SANTA Attending Unavailable LIVAN DO, DR LUCI Soto Primary Care Unavailable MALYS DO, DR LUCI Soto Primary Care Unavailable PRINCESS ABEL MD Attending Unavailable JUDY RETANA, DR WES Barcenas Attending Blanca LICONA DO, DR LUCI Soto Primary Care Unavailable MALYS DO, DR LUCI Soto Primary Care Unavailable RADHA STAPLETON MD Attending Unavail able Medications Current Medications Medication Drug Class(es) Dates Sig (Normalized) Sig (Original) 0.5 ML tirzepatide 10 MG/ML Auto-Injector [Mounjaro] (4 sources) Start: 10-29-2022 Mounjaro 5 mg/0.5 mL subcutaneous solution INJECT the contents OF 1 (ONE) pen under the skin once weekly DIRECTED Start Date: 10/29/22 Status: Ordered albuterol 0.83 mg/ml inhalation solution (20 sources) beta2-Adrenergic Agonist Start: 02-18-2022 take 1 dose by inhalation every six hours albuterol 2.5 mg/3 mL (0.083%) inhalation solution Dose : 2.5 mg = 3 mL, Inhalation, q6h, # 60 EA, 0 Refill(s) Start Date: 02/18/22 Status: Ordered Start: 01-09-2020 take 2.5 mg by inhal ation every four hours Albuterol Sulfate Active 2.5 MG INHALATION Q4H 180 January 09, 2020 12:00am Start: 01-09-2020 take 90 ug by inhala tion every four hours Albuterol Sulfate (Proair Respiclick) 90 mcg/actuation aerosol powdr breath activated Active 2 INH INHALATION Q4H January 09, 2020 12:00am administer with spacer albuterol 0.833 mg/ml / ipratropium bromide 0.167 mg/ml inhalation solution (8 sources) Anticholinergic, beta2-Adrenergic Agonist Start: 01-11-2022 take 1 dose by inhalation every four hours albuterol-ipratropium 2.5 mg-0.5 mg/3 mL inhalation solution Dose = 3 mL, Inhalation, q4h, # 60 EA, 0 Refill(s) Start Date: 01/11/22 Status: Ordered Alcohol Swabs (10 sources) Start: 08-12-2020 Alcohol Swabs See Instructions, 1 box, # 1 EA, 0 Refill(s), Pharmacy: [facility], 188, cm, 08/10/20 0:05:00 EST, Height, 243.6, kg, 08/10/20 0:05:00 EST, Dosing Weight Start Date: 08/12/20 Status: Ordered Blood Glucose Test Machine (10 sources) Start: 08-12-2020 Blood Glucose Test Machine See Instructions, Device as determined by insurance coverage, # 1 EA, 0 Refill(s), Pharmacy: [facility], 188, cm, 08/10/20 0:05:00 EST, Height, 243.6, kg, 08/10/20 0:05:00 EST, Dosing Weight Start Date: 08/12/20 Status: Ordered 120 actuat budesonide 0.16 mg/actuat / formoterol fumarate 0.0045 mg/actuat metered dose inhaler (20 sources) Corticosteroid, beta2-Adrenergic Agonist Start: 11-13-2021 take 1 puff(s) by inhalation twice daily Budesonide-Formoterol (Symbicort) 160-4.5 mcg/actuation HFA aerosol inhaler Active 2 PUFF INHALATION TWICE A DAY 10.2 November 13, 2021 7:04am Start: 11-12-2021 End: 11-13-2021 take 1 puff(s) by inhalation twice daily Budesonide-Formoterol (Symbicort) 160-4.5 mcg/actuation HFA aerosol inhaler Discontinued 2 PUFF INHALATION TWICE A DAY 10.2 November 12, 2021 9:51am November 13, 2021 6:05am Start: 11-12-2021 End: 11-13-2021 take 1 puff(s) by inhalation twice daily Budesonide-Formoterol (Symbicort) 160-4.5 mcg/actuation HFA aerosol inhaler Discontinued 2 PUFF INHALATION TWICE A DAY 10.2 November 12, 2021 10:51am November 13, 2021 7:05am Start: 09-19-2020 End: 11-12-2021 take 1 puff(s) by inhalation twice daily Budesonide-Formoterol (Symbicort) 160-4.5 mcg/actuation HFA aerosol inhaler Discontinued 2 PUFF INHALATION TWICE A DAY 10.2 September 19, 2020 3:29pm November 12, 2021 10:52am Start: 09-19-2020 End: 11-12-2021 take 1 puff(s) by inhalation twice daily Budesonide-Formoterol (Symbicort) 160-4.5 mcg/actuation HFA aerosol inhaler Discontinued 2 PUFF INHALATION TWICE A DAY 10.2 September 19, 2020 12:00am November 12, 2021 9:52am Start: 09-19-2020 End: 11-12-2021 take 1 puff(s) by inhalation twice daily Budesonide-Formoterol (Symbicort) 160-4.5 mcg/actuation HFA aerosol inhaler Discontinued 2 PUFF INHALATION TWICE A DAY 10.2 September 19, 2020 1:00am November 12, 2021 10:52am cephalexin 500 mg oral tablet (10 sources) Cephalosporin Antibacterial Start: 02-03-2023 End: 02-08-2023 take 1 capsule by mouth four times daily Keflex use cephalexin Dose : 500 mg =, Oral, QID, X 5 day(s), # 20 cap(s), 0 Refill(s), 02/08/23 15:36:00 EDT, Lumbar back sprain Cellulitis, 261 Start Date: 02/03/23 Stop Date: 02/08/23 Status: Ordered Start: 11-02-2019 End: 01-15-2021 take 500 mg by mouth every six hours Cephalexin Discontinued 500 MG PO EVERY 6 HOURS November 02, 2019 1:00am January 15, 2021 2:16pm clindamycin 300 mg oral capsule (13 sources) Lincosamide Antibacterial Start: 11-27-2023 take 300 mg by mouth every eight hours Clindamycin Hcl Active 300 MG PO Q8H 30 November 27, 2023 1:00am Start: 12-04-2022 take 300 mg by mouth four times daily Clindamycin Hcl Active 300 MG PO 4 TIMES DAILY 40 December 04, 2022 1:00am Start: 07-19-2021 End: 07-29-2021 clindamycin 150 mg oral caps ule Dose : 450 mg = 3 cap(s), Oral, q8h, X 10 day(s), # 90 cap(s), 0 Refill(s), 07/29/21 7:17:00 EDT, Fractured tooth Dental caries, 240 Start Date: 07/19/21 Stop Date: 07/29/21 Status: Ordered 24 hr cyclobenzaprine hydrochloride 15 mg extended release oral capsule (20 sources) Muscle Relaxant Start: 02-03-2023 End: 02-13-2023 cyclobenzaprine 15 mg oral capsule, extended release Dose : 30 mg = 2 cap(s), Oral, Daily, PRN PRN Muscle pain, X 10 day(s), # 10 cap(s), 0 Refill(s), 02/13/23 15:38:00 EDT Start Date: 02/03/23 Stop Date: 02/13/23 Status: Ordered Start: 08-05-2018 Flexeril Oral, TID, 0 Refill(s) Start Date: 08/05/18 Status: Ordered Start: 08-07-2016 take 10 mg by mouth three times daily Cyclobenzaprine Active 10 MG PO THREE TIMES A DAY August 07, 2016 12:00am diclofenac sodium 0.01 mg/mg topical gel (13 sources) Nonsteroidal Anti-inflammatory Drug Start: 02-06-2023 diclofenac 1% topical gel 2 = gram(s), Topical, QID, # 1 EA, 0 Refill(s), Gel, 250 Start Date: 02/06/23 Status: Ordered Start: 08-07-2016 End: 08-29-2019 take 50 mg by mouth three times daily at mealtime Diclofenac Sodium Discontinued 50 MG PO 3 TIMES DAILY WITH MEALS August 07, 2016 12:00am August 29, 2019 8:50am dicyclomine hydrochloride 10 mg oral capsule (16 sources) Anticholinergic Start: 11-21-2018 End: 08-27-2019 take 20 mg by mouth three times daily before mealtime Dicyclomine Active 20 MG PO THREE TIMES DAILY BEFORE MEALS August 27, 2019 5:47am doxycycline hyclate 100 mg oral capsule (3 sources) Tetracycline-class Drug Start: 11-22-2023 End: 12-02-2023 doxycycline hyclate 100 mg oral capsule Dose : 100 mg = 1 cap(s), Oral, q12h, X 10 day(s), # 20 cap(s), 0 Refill(s), 12/02/23 10:00:00 AM EST, 250 Start Date: 11/22/23 Stop Date: 12/02/23 Status: Ordered Start: 08-28-2023 End: 09-07-2023 doxycycline hyclate 100 mg o ral capsule Dose : 100 mg = 1 cap(s), Oral, BID, X 10 day(s), # 20 cap(s), 0 Refill(s), 09/07/23 8:11:00 PM EST, 250 Start Date: 08/28/23 Stop Date: 09/07/23 Status: Ordered Start: 11-29-2022 End: 12-09-2022 doxycycline hyclate 100 mg o ral tablet Dose : 100 mg = 1 tab(s), PO, BID, X 10 day(s), # 20 tab(s), 0 Refill(s), 12/09/22 17:26:00 EST, Hypertension Diabetes mellitus, 231.6 Start Date: 11/29/22 Stop Date: 12/09/22 Status: Ordered DULoxetine 30 mg delayed release oral capsule (14 sources) Serotonin and Norepinephrine Reuptake Inhibitor Start: 02-03-2023 DULoxetine 30 mg oral delayed release capsule Dose : 30 mg = 1 cap(s), Oral, qDay, do not crush or chew Start Date: 02/03/23 Status: Ordered Start: 12-29-2017 take 1 capsule by mo uth once daily Duloxetine (Cymbalta) 20 MG capsule Active 20 MG PO DAILY December 29, 2017 12:00am furosemide 40 mg oral tablet (18 sources) Loop Diuretic Start: 04-06-2019 furosemide 40 mg oral tablet Dose : 40 mg = 1 tab(s), Oral, qDay, 0 Refill(s) Start Date: 04/06/19 Status: Ordered Start: 12-29-2017 take 80 mg by mouth once daily Furosemide Active 80 MG PO DAILY December 29, 2017 12:00am gabapentin 600 mg oral tablet (18 sources) Anti-epileptic Agent Start: 08-07-2016 gabapentin 600 mg oral tablet Dose : 600 mg = 1 tab(s), Oral, TID, # 90 tab(s), 0 Refill(s) Start Date: 05/23/17 Status: Ordered glipiZIDE er 10 mg 24 hr extended release oral tablet (6 sources) Sulfonylurea Start: 02-03-2023 glipiZIDE 10 mg oral tablet, extended release Dose : 10 mg = 1 tab(s), Oral, qDay Start Date: 02/03/23 Status: Ordered ibuprofen 800 mg oral tablet (6 sources) Nonsteroidal Anti-inflammatory Drug Start: 02-03-2023 ibuprofen 800 mg oral tablet Dose : 800 mg = 1 tab(s), Oral, TID Start Date: 02/03/23 Status: Ordered insulin detemir 100 unt/ml injectable solution (10 sources) Insulin Analog Start: 08-12-2020 inject 1 dose by subcutaneous injection once daily at bedtime Levemir 100 units/mL 10 mL vial Dose : 70 unit(s) =, Subcutaneous, qHS, # 15 mL, 0 Refill(s), 188, cm, 08/10/20 0:05:00 EST, Height, kg, 08/10/20 0:05:00 EST, Dosing Weight Start Date: 08/12/20 Status: Ordered lidocaine 0.05 mg/mg medicated patch (10 sources) Antiarrhythmic, Amide Local Anesthetic Start: 03-12-2021 Lidoderm 5% topical patch Apply 1 patch(es), Transdermal, qDay, # 30 patch(es), 0 Refill(s), 251.8 Start Date: 03/12/21 Status: Ordered loperamide hydrochloride 2 mg oral capsule (15 sources) Opioid Agonist Start: 05-13-2022 Loperamide (Imodium A-D) 2 MG capsule Active 4 MG PO EVERY 4 HOURS NEEDED May 13, 2022 12:42pm Start: 11-21-2018 End: 05-13-2022 take 4 mg by mouth every four hours as needed Loperamide Discontinued 4 MG PO EVERY 4 HOURS NEEDED November 21, 2018 1:00am May 13, 2022 12:43pm Lopressor 25mg--USE metoprolol tartrate 25 mg oral tablet (6 sources) Start: 02-03-2023 Lopressor 25mg --USE metoprolol tartrate 25 mg oral tablet Dose : 25 mg = 1 tab(s), Oral, BID, TAKE 1 TABLET BY MOUTH TWICE A DAY Start Date: 02/03/23 Status: Ordered metaxalone 400 mg oral tablet (1 source) Start: 01-15-2024 take 800 mg by mouth three times daily Metaxalone Active 800 MG PO THREE TIMES A DAY January 15, 2024 12:00am metFORMIN hydrochloride 500 mg oral tablet (20 sources) Biguanide Start: 08-10-2020 metFORMIN 500 mg oral tablet (IR) Dose : 500 mg = 1 tab(s), Oral, BID, # 60 tab(s), 0 Refill(s), Hypertension Diabetes mellitus Start Date: 11/29/22 Status: Ordered Start: 08-07-2020 take 500 mg by mouth twice alfredo ly Metformin Active 500 MG PO TWICE A DAY August 07, 2020 1:00am 24 hr metoprolol succinate 25 mg extended release oral tablet (8 sources) beta-Adrenergic Ksenia Start: 12-29-2017 take 25 mg by mouth twice daily Metoprolol Succinate Active 25 MG PO TWICE A DAY December 29, 2017 12:00am montelukast 10 mg oral tablet (16 sources) Leukotriene Receptor Antagonist Start: 01-15-2021 End: 05-09-2021 take 10 mg by mouth once daily in the evening Montelukast Active 10 MG PO EVERY EVENING May 09, 2021 8:41am Mounjaro 5 mg/0.5 mL subcutaneous solution (3 sources) Start: 10-29-2022 Mounjaro 5 mg/0.5 mL subcutaneous solution INJECT the contents OF 1 (ONE) pen under the skin once weekly DIRECTED Start Date: 10/29/22 Status: Ordered naproxen 500 mg oral tablet (1 source) Nonsteroidal Anti-inflammatory Drug Start: 08-08-2021 End: 08-15-2021 naproxen 500 mg oral tablet Dose : 500 mg = 1 tab(s), Oral, BID, PRN as needed for pain, X 7 day(s), # 14 tab(s), 0 Refill(s), 08/15/21 17:38:00 EST Start Date: 08/08/21 Stop Date: 08/15/21 Status: Ordered nystatin 100 unt/mg topical powder (1 source) Polyene Antifungal Start: 08-29-2019 Nystatin Active 1 APPLIC TOPICAL THREE TIMES A DAY August 29, 2019 8:49am oxyCODONE (18 sources) Opioid Agonist Start: 05-23-2017 oxyCODONE 15 mg oral tablet ( extended release ) Dose : 15 mg = 1 tab(s), Oral, QID, 0 Refill(s) Start Date: 05/23/17 Status: Ordered Start: 08-07-2016 take 15 mg by mouth four times daily as needed Oxycodone Active 15 MG PO 4 TIMES DAILY NEEDED August 07, 2016 3:16pm Start: 08-07-2016 take 15 mg by mouth three times daily Oxycodone Active 15 MG PO THREE TIMES A DAY August 07, 2016 12:00am penicillin v potassium 500 m g oral tablet (1 source) Start: 08-08-2021 End: 08-18-2021 penicillin V potassium 500 m g oral tablet Dose : 500 mg = 1 tab(s), Oral, q6h, X 10 day(s), # 40 tab(s), 0 Refill(s), 08/18/21 17:38:00 EST, 236.4 Start Date: 08/08/21 Stop Date: 08/18/21 Status: Ordered predniSONE 20 mg oral tablet (9 sources) Start: 01-11-2022 End: 01-16-2022 predniSONE 20 mg oral tablet Dose : 40 mg = 2 tab(s), Oral, qDay, X 5 day(s), # 10 tab(s), 0 Refill(s), 01/16/22 3:49:00 EDT Start Date: 01/11/22 Stop Date: 01/16/22 Status: Ordered Start: 08-27-2019 End: 11-17-2019 take 60 mg by mouth once daily Prednisone Discontinued 60 MG PO DAILY August 27, 2019 1:00am November 17, 2019 10:04am 60 actuat tiotropium 0.0025 mg/actuat inhalation spray (20 sources) Anticholinergic Start: 02-03-2023 take 2 puff(s) by inhalation once daily Spiriva Respimat 60 ACT 2.5 mcg/inh inhalation aerosol 2 puff(s), Inhalation, qDay Start Date: 02/03/23 Status: Ordered Start: 02-03-2021 End: 11-12-2021 take 1 puff(s) by inhalation at bedtime Tiotropium Nahma (Spiriva Respimat) 2.5 mcg/actuation mist Active 2 PUFF INHALATION AT BEDTIME November 12, 2021 10:51am Start: 09-19-2020 End: 02-03-2021 take 1 puff(s) by inhalation at bedtime Tiotropium Nahma (Spiriva Respimat) 2.5 mcg/actuation mist Discontinued 2 PUFF INHALATION AT BEDTIME September 19, 2020 3:22pm February 03, 2021 3:18pm Start: 09-19-2020 End: 02-03-2021 take 1 puff(s) by inhalation at bedtime Tiotropium Nahma (Spiriva Respimat) 2.5 mcg/actuation mist Discontinued 2 PUFF INHALATION AT BEDTIME September 19, 2020 12:00am February 03, 2021 2:18pm Start: 09-19-2020 End: 02-03-2021 take 1 puff(s) by inhalation at bedtime Tiotropium Nahma (Spiriva Respimat) 2.5 mcg/actuation mist Discontinued 2 PUFF INHALATION AT BEDTIME September 19, 2020 1:00am February 03, 2021 3:18pm tiZANidine 2 mg oral tablet (10 sources) Central alpha-2 Adrenergic Agonist Start: 04-14-2020 tiZANidine 2 mg oral tablet Dose : 2 mg = 1 tab(s), Oral, q8h, # 20 tab(s), 0 Refill(s), Back pain Start Date: 04/14/20 Status: Ordered Completed/Discontinued Medications Medication Drug Class(es) Dates Sig (Normalized) Sig (Original) acetaminophen 325 mg / HYDROcodone bitartrate 5 mg oral tablet (10 sources) Opioid Agonist Start: 1 End: 1 take 1 tablet by mouth every four hours as needed for pain [place] 325- 5 mg oral tablet Dose = 1 tab(s), Oral, q4h, PRN for pain, # 18 tab(s), 0 Refill(s), Lumbar strain, 243.6 Start Date: 10/26/20 Stop Date: 10/29/20 Status: Ordered cetirizine hydrochloride 10 mg oral capsule (20 sources) Histamine-1 Receptor Antagonist Start: 1 End: 2 take 10 mg by mouth at bedtime Cetirizine Discontinued 10 MG PO BEDTIME May 09, 2021 8:41am May 13, 2022 12:43pm hydroCHLOROthiazide 12.5 mg oral capsule (8 sources) Thiazide Diuretic Start: 8 End: 9 take 12.5 mg by mouth once daily Hydrochlorothiazide Discontinued 12.5 MG PO DAILY December 29, 2017 12:00am August 29, 2019 8:52am potassium chloride 20 meq oral tablet (9 sources) Start: 2 End: 2 Potassium Chloride (Eqv-K-Tab) 20 mEq oral tablet, extended release Dose : 20 mEq = 1 tab(s), Oral, qDay, take with food, # 7 tab(s), 0 Refill(s) Start Date: 01/11/22 Stop Date: 01/18/22 Status: Ordered Start: 08-07-2020 take 40 mEq by mouth once berenice y Potassium Chloride Active 40 MEQ PO DAILY August 07, 2020 6:41pm Problems Active Problems Problem Classification Problem Date Documented Date Episodic/Chronic Alcohol-related disorders (8 sources) Alcohol abuse; Translations: [Alcohol abuse, uncomplicated] 05-13-2022 Chronic Asthma (10 sources) Asthma; Translations: [Unspecified asthma, uncomplicated] 01-10-2020 Chronic Chronic obstructive pulmonary disease and bronchiectasis (9 sources) Acute exacerbation of chronic obstructive airways disease; Translations: [Chronic obstructive pulmonary disease with (acute) exacerbation] Onset: 01-11-2022 Chronic Chronic obstructive pulmonary disease and bronchiectasis (8 sources) Bronchitis; Translations: [Bronchitis, not specified as acute or chronic] 11-17-2019 Episodic Diabetes mellitus without complication (8 sources) Type 2 diabetes mellitus without complication; Translations: [Type 2 diabetes mellitus without complications] Onset: 11-29-2022 Chronic Diabetes mellitus without complication (8 sources) Hyperglycemia; Translations: [Hyperglycemia, unspecified] 08-08-2020 Episodic Disorders of teeth and jaw (1 source) Dental caries; Translations: [Dental caries, unspecified] Onset: 07-19-2021 Episodic E Codes: Fall (3 sources) Fall in home; Translations: [Unspecified fall, initial encounter] 02-06-2023 Episodic Essential hypertension (9 sources) Hypertensive disorder; Translations: [Essential (primary) hypertension] Onset: 11-29-2022 Chronic Fluid and electrolyte disorders (16 sources) Dehydration; Translations: [Dehydration] 08-08-2020 Episodic Influenza (8 sources) Influenza due to Influenza A virus; Translations: [Influenza due to other identified influenza virus with other respiratory manifestations] 11-17-2019 Episodic Open wounds of extremities (1 source) Laceration of finger without foreign body; Translations: [Laceration without foreign body of unspecified finger without damage to nail, initial encounter] Onset: 06-11-2023 Episodic Other connective tissue disease (10 sources) Hand pain 03-01-2015 Episodic Comment on above: puncture wound to in dex knuckle via nail gun Other diseases of veins and lymphatics (8 sources) Chronic acquired lymphedema; Translations: [Lymphedema, not elsewhere classified] 11-17-2019 Chronic Other inflammatory condition of skin (18 sources) Psoriasis; Translations: [Psoriasis, unspecified] 09-23-2014 Chronic Other injuries and conditions due to external causes (1 source) Traumatic AND/OR non-traumatic injury; Translations: [Other injury of unspecified body region, initial encounter] Onset: 02-06-2023 Episodic Other lower respiratory disease (1 source) Dyspnea; Translations: [Dyspnea, unspecified] Onset: 01-27-2024 Episodic Other nutritional; endocrine; and metabolic disorders (8 sources) Morbid obesity; Translations: [Morbid (severe) obesity due to excess calories] 11-12-2021 Chronic Other nutritional; endocrine; and metabolic disorders (1 source) Morbid (severe) obesity due to excess calories; Translations: [Morbid obesity] Chronic Other nutritional; endocrine; and metabolic disorders (2 sources) H/O: diabetes mellitus; Translations: [Personal history of other endocrine, nutritional and metabolic disease] 11-27-2023 Episodic Other skin disorders (2 sources) H/O: psoriasis; Translations: [Personal history of diseases of the skin and subcutaneous tissue] 11-27-2023 Episodic Residual codes; unclassified (15 sources) Obstructive sleep apnea syndrome; Translations: [Obstructive sleep apnea (adult) (pediatric)] 10-29-2022 Chronic Residual codes; unclassified (1 source) Obstructive sleep apnea (adult) (pediatric); Translations: [Obstructive sleep apnea (adult)(pediatric)] Chronic Residual codes; unclassified (13 sources) Peripheral edema; Translations: [Edema, unspecified] 12-04-2022 Episodic Residual codes; unclassified (1 source) Edema; Translations: [Edema, unspecified] Onset: 11-29-2022 Episodic Residual codes; unclassified (2 sources) FH: Respiratory disease; Translations: [Family history of other diseases of the respiratory system] 11-27-2023 Episodic Respiratory failure; insufficiency; arrest (adult) (9 sources) Chronic hypoxemic respiratory failure; Translations: [Chronic respiratory failure with hypoxia] Chronic Respiratory failure; insufficiency; arrest (adult) (8 sources) Acute respiratory failure; Translations: [Acute respiratory failure with hypoxia] 11-17-2019 Episodic Skull and face fractures (1 source) Fracture of tooth ; Translations: [Fracture of tooth (traumatic), initial encounter for closed fracture] Onset: 07-19-2021 Episodic Spondylosis; intervertebral disc disorders; other back problems (9 sources) Degeneration of lumbosacral intervertebral disc; Translations: [Other intervertebral disc degeneration, lumbosacral region] Onset: 02-21-2024 11-17-2019 Chronic Spondylosis; intervertebral disc disorders; other back problems (20 sources) Backache; Translations: [Lumbosacral radiculopathy] Onset: 02-06-2023 02-04-2015 Episodic Sprains and strains (1 source) Lumbar sprain; Translations: [Sprain of unspecified parts of lumbar spine and pelvis, initial encounter] Onset: 02-03-2023 Episodic Substance-related disorders (8 sources) Tobacco dependence syndrome; Translations: [Nicotine dependence, unspecified, uncomplicated] 11-17-2019 Chronic Unclassified (1 source) Low back pain, unspecified; Translations: [Low back pain, unspecified] Onset: 01-20-2024 Past or Other Problems Problem Classification Problem Date Documented Da te Episodic/Chronic Skin and subcutaneous tissue infections (20 sources) Cellulitis; Translations: [Cellulitis of abdominal wall ] Onset: 11-29-2022 03-27-2016 Episodic Comment on above: abdominal fold Results Test Name Value Interpretation Reference Range Facility Bedside Glucoseon 05-08-2024 FINGERSTICK GLU 131 mg/dL High 74-106 [facility] Comment on above: Result Comment: BETH XIAO OF PATIENT CARE PER NURSING PROTOCOL Performed By: #### L 501.080 #### [facility] [address] [place], [address] Fluor Guidance for Spine Inj on 05-08-2024 Fluor Guidance for Spine Inj [facility] Imaging Services [address] [place] [address] Fluor Guidance for Spine Inj MR#: [id number] Acct: [id number] Name: SASHA JACOBS II Rep #: [id number] : 1980 M 44 From: Chava landeros MD PCP: Dr. Luci Licona DO Status: [facility] Study: Fluor Guidance for Spine Inj Date of Exam: 02/24 Exam# [id number] Ordering Dr: Morgan Heller MD -[id number] PROCEDURE: Caudal block. DATE OF EXAMINATION: May 08, 2024. INDICATION: Male, 44 years old. Low back pain. FLUOROSCOPY TIME (if supplied): (10 seconds) minutes/seconds. 18.4 mGy. 2 images were submitted. RAD/Fluor Guidance for Spine Inj IMPRESSION: Intraoperative imaging provided for caudal block. Electronically Signed: Chava Gil MD at 7:41 EDT Reading Location ID and State: [facility] / [place] , Service support , CC: Dr. Morgan Heller MD; Dr. Luci Licona DO Horse Groomer: Signed [facility] MR/POSTOP.[facility] 05-08-2024 MR/POSTOP.[facility] Medical Records Department [address] [place] [id number] Anesthesia Postop Eval I 05/08/24 0945 MR#: [id number] Acct: [id number] Name: SASHA JACOBS II Rep #: [id number] : 1980 44 From: Ese Vieira CRNA PCP: Dr. 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 Luci Licona, DO Status:REG SDC Y Race: C Location: [place] [address] Anesthesia Postop Eval I Sum Postop Eval Completion status Anesthesia document: Postop Eval 1 completed: Yes Anesthesia Postop Eval I Summary Anesthesia Postop Eval I Summary: Anesthesia Postop Eval I: Assessment Summary Airway patent Yes 05/08/24 09:46 REMOTE [employer] DEVELOPER.CHARAN Spontaneous unlabored Yes 05/08/24 09:46 REMOTE RUBY [employer] RA[employer]S DEVELOPER.CHARAN respirations Mental status Awake,Calm 05/08/24 09:46 REMOTE RUBY [employer] RAIL[employer] DEVELOPER.SHANNONOBGwyn nausea No 05/08/24 09:46 REMOTE RUBY [employer] RAILS DEVELOPER.SHANNONOBY Vomiting No 05/08/24 09:46 REMOTE RU[employer] RAIL[employer] DEVELOPER.SHANNONOBGwyn Anesthesia Postop Eval I: Fluid Summary Crystalloid volume administer 200 05/08/24 09:46 REMOTE RU[employer] DEVELOPER.CHARAN (ml) Colloids volume administered ( ml) Blood Product volume administered (ml) Total IV fluid infused 200 05/08/24 09:46 REMOTE RUBY [employer] RAILS DEVELOPER.SHANNONOBGwyn Anesthesia Postop Eval I: Summary Notes Anesthesia Complication No 05/08/24 09:46 REMOTE RUBY [employer] RAILS DEVELOPER.SHANNONOBGwyn Anesthesia Complication Comment: Post-operative progress note Anesthesia: Postop Eval II Evaluation Mental status: Awake Pain Level: 0 nausea: No Vomiting: No 05/08/24 0950 Date Binu Rooney MD Cosigner Signature: Date CC: Signed [facility] Operative Reporton [address] [facility] Medical Records Department [address] [place] [address] Operative Report 05/08/2441 MR#: [id number] Acct: [id number] Name: SASHA JACOBS II Rep #: [id number] : 1980 44 From: Morgan Heller MD PCP: Dr. Luci Licona, DO Status:[facility] Location: [place] [address] Report of Operation Date of Procedure: 05/08/24 Pre-Operative Diagnosis: Lumbosacral radiculopathy, lumbosacral degenerative disc disease, lumbosacral spinal stenosis Post-Operative Diagnosis: Lumbosacral radiculopathy, lumbosacral degenerative disc disease, lumbosacral spinal stenosis Surgery/Procedure Performed:: Diagnostic/therapeu tic caudal epidural steroid injection under fluoroscopic guidance Type of Anesthesia: MAC Estimated Blood Loss (mL): Minimal Description of Procedure: DESCRIPTION OF PROCEDURE: History and physical of today was reviewed. Risks and benefits of the procedure were explained. The patient understood and agreed to proceed. Informed consent was obtained. IV inserted per routine protocol. The patient was taken to the operating room and placed in the prone position with a pillow positioned underneath the abdomen. The lower back and tailbone area was prepped and draped in a sterile fashion using iodine x3. Under fluoroscopy guidance on a lateral view, the caudal space was identified. The skin and subcutaneous tissue was anesthetized with approximately 3 mL of 1% lidocaine using a 25-gauge regular needle. Under direct visualization with fluoroscopy, using a 22-gauge 3-1/2-inch spinal needle, the needle was advanced via the skin through the sacral hiatus. The tip of the needle was passed through the sacrococcygeal ligament and advanced to approximately S4 area. After negative aspiration of blood or CSF, a total of 3 mL of contrast was injected to confirm correct placement of the needle as well as cephalad spread. The spread was followed to approximately L5 area. After confirmation on AP as well as lateral view and repeated negative aspiration, a total of 15 mL of preservative-free 0.125% Marcaine with 80 mg of Depo-Medrol was injected easily. The needle was then removed intact. The patient experienced no sign or symptoms of intrathecal or intravascular injection. The patient experienced no paresthesia. The procedure was completed without any apparent difficulty or any complications. The patient appeared to tolerate it well. ASSESSMENT AND PLAN: This is a 44-year-old male with lumbosacral radiculopathy, lumbosacral degenerative disc disease, lumbosacral spinal stenosis status post diagnostic/therapeu tic caudal epidural steroid injection, patient will continue his current medications, patient will follow in approximately 2 weeks for reevaluation. Complications None 05/08/24 0943 Cosigner Signature (if applicable): CC: Dr. Morgan Heller MD; Dr. Luci Licona DO Signed [facility] L/S Spine Min 4 Viewson 02-01 L/S Spine Min 4 Views [facility] Imaging Services [address] [place] [address] L/S Spine Min 4 Views MR#: [id number] Acct: [id number] Name: SASHA JACOBS II Rep #: [id number] : 1980 M 44 From: Hi darden MD PCP: Dr. Luci Licona DO Status: REG CLI Study: L/S Spine Min 4 Views Date of Exam: 02/15/24 Exam# [id number] Ordering Dr: [place] -[id number] INDICATION: DDD EXAMINATION/TECHNIQ UE: X-RAY - XR Spine Lumbar Min 4 Views COMPARISON: None. FINDINGS: VERTEBRAE: Chronic appearing compression deformities of T11, L1 and L2. No acute fracture. No spondylolisthesis. Preservation of the normal lumbar lordosis. Severe multilevel facet arthropathy. DISCS: Severe multilevel degenerative disc disease and spondylosis. INCLUDED ABDOMEN: Included bowel gas pattern is non-obstructive. RAD/L/S Spine Min 4 Views IMPRESSION: No evidence of lumbar spinal fracture or spondylolisthesis. Chronic appearing compression deformities of T11, L1 and L2. Severe multilevel degenerative disc disease and spondylosis. Electronically Signed: Hi Asif MD at 23:01 EDT , CC: [place]; Dr. Luci Licona DO Horse Groomer: Signed [facility] .Auto Diffon 01-27-2024 Basophil, Absolute 0.1 10 3/mcL Normal 0.0-0.2 [facility] ([place]) Comment on above: Performed By: #### A RYAN, PBNP, BMP, TROPHS, MDW, GFR, CBC, ADIFF ####[address] [place], [place] [address] Basophils/100 WBC (Bld) 0.8 % Normal 0.0-2.5 [facility] ([place]) Comment on above: Performed By: #### A RYAN, PBNP, BMP, TROPHS, MDW, GFR, CBC, ADIFF ####[address] [place], [place] [address] Eosinophil, Absolute 0.2 10 3/mcL Normal 0.0-0.4 [facility] ([place]) Comment on above: Performed By: #### A RYAN, PBNP, BMP, TROPHS, MDW, GFR, CBC, ADIFF ####[address] [place], [place] [address] Eosinophils/100 WBC (Bld) 1.9 % Normal 0.0-7.0 [facility] ([place]) Comment on above: Performed By: #### A RYAN, PBNP, BMP, TROPHS, MDW, GFR, CBC, ADIFF ####[address] [place], [place] [address] Lymphocyte, Absolute 1.8 10 3/mcL Normal 0.8-3.9 [facility] ([place]) Comment on above: Performed By: #### A RYAN, PBNP, BMP, TROPHS, MDW, GFR, CBC, ADIFF ####[address] [place], [place] [address] Lymphocytes/100 WBC (Bld) 17.3 % Normal 10.0-50.0 [facility] ([place]) Comment on above: Performed By: #### A RYAN, PBNP, BMP, TROPHS, MDW, GFR, CBC, ADIFF ####[address] [place], [place] [address] Monocyte, Absolute 0.6 10 3/mcL Normal 0.2-1.0 [facility] ([place]) Comment on above: Performed By: #### A RYAN, PBNP, BMP, TROPHS, MDW, GFR, CBC, ADIFF ####[address] [place], [place] [address] Monocytes/100 WBC (Bld) 5.7 % Normal 1.7-13.0 [facility] ([place]) Comment on above: Performed By: #### A RAYN, PBNP, BMP, TROPHS, MDW, GFR, CBC, ADIFF ####[address] [place], [place] [address] Neutrophils/100 WBC (Bld) 74.3 % Normal 37.0-80.0 [facility] ([place]) Comment on above: Performed By: #### A RYAN, PBNP, BMP, TROPHS, MDW, GFR, CBC, ADIFF ####[address] [place], [place] [address] .GFRon 01-27-2024 GFR 105 ml/min/1.73sqm Normal [facility] ([place]) Comment on above: Result Comment: GFR Population mean for , Non- Americans Ages 20-29 = 116 mL/min/1.73 sq.m. Ages 30-39 = 107 mL/min/1.73 sq.m. Ages 40-49 = 99 mL/min/1.73 sq.m. Ages 50-59 = 93 mL/min/1.73 sq.m. Ages 60-69 = 85 mL/min/1.73 sq.m. Ages 70+ = 75 mL/min/1.73 sq.m. Chronic Kidney Disease: Less than 60 mL/min/1.73 square meters End Stage Renal Disease: Less than 15 mL/min/1.73 square meters Performed By: #### A RYAN, PBNP, BMP, TROPHS, MDW, GFR, CBC, ADIFF ####[address] [place], [place] [address] GFR Non- 87 ml/min/1.73sqm Normal [facility] ([place]) Comment on above: Result Comment: GFR Population mean for , Non- Americans Ages 20-29 = 116 mL/min/1.73 sq.m. Ages 30-39 = 107 mL/min/1.73 sq.m. Ages 40-49 = 99 mL/min/1.73 sq.m. Ages 50-59 = 93 mL/min/1.73 sq.m. Ages 60-69 = 85 mL/min/1.73 sq.m. Ages 70+ = 75 mL/min/1.73 sq.m. Chronic Kidney Disease: Less than 60 mL/min/1.73 square meters End Stage Renal Disease: Less than 15 mL/min/1.73 square meters Performed By: #### A RYAN, PBNP, BMP, TROPHS, MDW, GFR, CBC, ADIFF ####[address] [place], [place] [address] .MDWon 01-27-2024 Monocyte Distribution Width 18.45 Normal 0.00-20.00 [facility] ([place]) Comment on above: Result Comment: For ED adult patients suspected of sepsis, MDW<=20.0 does not rule out sepsis or risk of sepsis Performed By: #### A RYAN, PBNP, BMP, TROPHS, MDW, GFR, CBC, ADIFF ####[address] [place], [place] [address] .NEUABSon 01-27-2024 Neutrophil, Absolute 7.7 10 3/mcL High 2.9-6.2 [facility] ([place]) Comment on above: Performed By: #### A RYAN, PBNP, BMP, TROPHS, MDW, GFR, CBC, ADIFF ####[address] [place], [place] [address] BMPon 01-27-2024 BUN/Creatinine Ratio 15 ratio Normal 7-27 [facility] ([place]) Comment on above: Performed By: #### A RYAN, PBNP, BMP, RICARDOS, MDW, GFR, CBC, ADIFF ####[address] [place], [place] [address] Calcium [Mass/Vol] 8.8 mg/dL Normal 8.4-10.2 [facility] ([place]) Comment on above: Performed By: #### A RYAN, PBNP, BMP, TROPHS, MDW, GFR, CBC, ADIFF ####[address] [place], [place] [address] Chloride [Moles/Vol] 101 mmol/L Normal 98-107 [facility] ([place]) Comment on above: Performed By: #### A RYAN, PBNP, BMP, TROPHS, MDW, GFR, CBC, ADIFF ####[address] [place], [place] [address] CO2 [Moles/Vol] 28 mmol/L Normal 22-29 [facility] ([place]) Comment on above: Performed By: #### A RYAN, PBNP, BMP, TROPHS, MDW, GFR, CBC, ADIFF ####[address] [place], [place] [address] Creatinine [Mass/Vol] 0.95 mg/dL Normal 0.70-1.30 [facility] ([place]) Comment on above: Performed By: #### A RYAN, PBNP, BMP, TROPHS, MDW, GFR, CBC, ADIFF ####[address] [place], [place] [address] Electrolyte Balance 10.0 mEq/L Normal 4.0-15.0 [facility] ([place]) Comment on above: Performed By: #### A RYAN, PBNP, BMP, TROPHS, MDW, GFR, CBC, ADIFF ####[address] [place], [place] [address] Glucose [Mass/Vol] 199 mg/dL High 70-105 [facility] ([place]) Comment on above: Performed By: #### A RYAN, PBNP, BMP, TROPHS, MDW, GFR, CBC, ADIFF ####[address] [place], [place] [address] Potassium [Moles/Vol] 3.9 mmol/L Normal 3.5-5.1 [facility] ([place]) Comment on above: Performed By: #### A RYAN, PBNP, BMP, TROPHS, MDW, GFR, CBC, ADIFF ####[address] [place], [place] [address] Sodium [Moles/Vol] 139 mmol/L Normal 136-145 [facility] ([place]) Comment on above: Performed By: #### A RYAN, PBJENSEN, BMP, TROPHS, MDW, GFR, CBC, ADIFF ####[address] [place], [place] [address] Urea nitrogen [Mass/Vol] 14 mg/dL Normal 7-18 [facility] ([place]) Comment on above: Performed By: #### A RYAN, PBNP, BMP, TROPHS, MDW, GFR, CBC, ADIFF ####[address] [place], [place] [address] CBCon 01-27-2024 Erythrocyte distribution width (RBC) [Ratio] 14.8 % High 11.5-14.5 [facility] ([place]) Comment on above: Performed By: #### A RYAN, PBNP, BMP, TROPHS, MDW, GFR, CBC, ADIFF #### [address] [place], [place] [address] Hematocrit (Bld) [Volume fraction] 37.1 % Low 42.0-52.0 [facility] ([place]) Comment on above: Performed By: #### A RYAN, PBNP, BMP, TROPHS, MDW, GFR, CBC, ADIFF #### [address] [address] Hgb 12.8 G/dL Low 14.0-18.0 [facility] ([place]) Comment on above: Performed By: #### A RYAN, PBNP, BMP, TROPHS, MDW, GFR, CBC, ADIFF #### [address] [address] MCH (RBC) [Entitic mass] 29.9 pg Normal 27.0-31.2 [facility] ([place]) Comment on above: Performed By: #### A RYAN, PBNP, BMP, TROPHS, MDW, GFR, CBC, ADIFF #### [place] [address] MCHC 34.5 G/dL Normal 31.8-35.4 [facility] ([place]) Comment on above: Performed By: #### A RYAN, PBNP, BMP, TROPHS, MDW, GFR, CBC, ADIFF #### [address] [address] MCV (RBC) [Entitic vol] 86.6 fL Normal 80.0-94.0 [facility] ([place]) Comment on above: Performed By: #### A RYAN, PBNP, BMP, TROPHS, MDW, GFR, CBC, ADIFF #### [address] [address] Platelet 240 10 3/mcL Normal 130-400 [facility] ([place]) Comment on above: Performed By: #### A RYNA, PBNP, BMP, TROPHS, MDW, GFR, CBC, ADIFF #### [address] [address] Platelet mean volume (Bld) [Entitic vol] 7.2 fL Low 7.4-10.4 [facility] ([place]) Comment on above: Performed By: #### A RYAN, PBNP, BMP, TROPHS, MDW, GFR, CBC, ADIFF #### [facility] [address] [place], [place] [address] RBC 4.28 10 6/mcL Normal 4.04-6.13 [facility] ([place]) Comment on above: Performed By: #### A RYAN, PBNP, BMP, TROPHS, MDW, GFR, CBC, ADIFF #### [address] [place], [place] [address] WBC 10.4 10 3/mcL Normal 4.6-10.8 [facility] ([place]) Comment on above: Performed By: #### A RYAN, PBNP, BMP, TROPHS, MDW, GFR, CBC, ADIFF #### [place] [place], [place] [address] LABORATORYOrdered By: SYSTEM SYSTEM on 01-27-2024 Basophil, Absolute 0.1 103/mcL Normal 0.0 - 0.2 10^3/mcL AO Workflow SS Basophils/100 WBC (Bld) 0.8 % Normal 0.0 - 2.5 % AO Workflow SS Calcium [Mass/Vol] 8.8 mg/dL Normal 8.4 - 10. 2 mg/dL AO ADM SS Chloride [Moles/Vol] 101 mmol/L Normal 98 - 10 7 mmol/L AO ADM SS CO2 [Moles/Vol] 28 mmol/L Normal 22 - 29 mmol/L AO ADM SS Creatinine [Mass/Vol] 0.95 mg/dL Normal 0.70 - 1.30 mg/dL AO ADM SS Electrolyte Balance 10.0 mEq/L Normal 4.0 - 15 .0 mEq/L AO ADM SS Eosinophil, Absolute 0.2 103/mcL Normal 0.0 - 0 .4 10^3/mcL AO Workflow SS Eosinophils/100 WBC (Bld) 1.9 % Normal 0.0 - 7.0 % AO Workflow SS Erythrocyte distribution width (RBC) [Ratio] 14.8 % High 11.5 - 14.5 % AO Workflow SS GFR/1.73 sq M.predicted among blacks MDRD (S/P/Bld) [Vol rate/Area] 105 ml/min/1.73sqm Invalid Interpretation Code AO Chemistry S Comment on above: Interpretive Data: GFR Population mean for , Non- Americans Ages 20-29 = 116 mL/min/1.73 sq.m. Ages 30-39 = 107 mL/min/1.73 sq.m. Ages 40-49 = 99 mL/min/1.73 sq.m. Ages 50-59 = 93 mL/min/1.73 sq.m. Ages 60-69 = 85 mL/min/1.73 sq.m. Ages 70+ = 75 mL/min/1.73 sq.m. Chronic Kidney Disease: Less than 60 mL/min/1.73 square meters End Stage Renal Disease: Less than 15 mL/min/1.73 square meters GFR/1.73 sq M.predicted among non-blacks MDRD (S/P/Bld) [Vol rate/Area] 87 ml/min/1.73sqm Invalid Interpretation Code AO Chemistry S Comment on above: Interpretive Data: GFR Population mean for , Non- Americans Ages 20-29 = 116 mL/min/1.73 sq.m. Ages 30-39 = 107 mL/min/1.73 sq.m. Ages 40-49 = 99 mL/min/1.73 sq.m. Ages 50-59 = 93 mL/min/1.73 sq.m. Ages 60-69 = 85 mL/min/1.73 sq.m. Ages 70+ = 75 mL/min/1.73 sq.m. Chronic Kidney Disease: Less than 60 mL/min/1.73 square meters End Stage Renal Disease: Less than 15 mL/min/1.73 square meters Glucose [Mass/Vol] 199 mg/dL High 70 - 105 mg/dL AO ADM SS Hematocrit (Bld) [Volume fraction] 37.1 % Low 42.0 - 52.0 % AO Workflow SS Hemoglobin (Bld) [Mass/Vol] 12.8 G/dL Low 14.0 - 18.0 G/dL AO Workflow SS Lymphocyte, Absolute 1.8 103/mcL Normal 0.8 - 3 .9 10^3/mcL AO Workflow SS Lymphocytes/100 WBC (Bld) 17.3 % Normal 10.0 - 50.0 % AO Workflow SS MCH (RBC) [Entitic mass] 29.9 pg Normal 27.0 - 31.2 pg AO Workflow SS MCHC 34.5 G/dL Normal 31.8 - 35.4 G/dL AO Workflow SS MCV (RBC) [Entitic vol] 86.6 fL Normal 80.0 - 94.0 fL AO Workflow SS Monocyte distribution width Auto (Bld) [Entitic vol] 18.45 1 Normal 0.00 - 20.00 AO Workflow SS Comment on above: Result Comment: For ED adult patients suspected of sepsis, MDW<=20.0 does not rule out sepsis or risk of sepsis Monocyte, Absolute 0.6 103/mcL Normal 0.2 - 1.0 10^3/mcL AO Workflow SS Monocytes/100 WBC (Bld) 5.7 % Normal 1.7 - 13.0 % AO Workflow SS Natriuretic peptide.B prohormone N-Terminal [Mass/Vol] 19 pg/mL Normal 0 - 125 pg/mL AO ADM SS Comment on above: Interpretive Data: N T-proBNP results of less than 300 pg/mL effectively rules out acute congestive heart failure with 99% negative predictive value. Neutrophil, Absolute 7.7 103/mcL High 2.9 - 6 .2 10^3/mcL AO Workflow SS Neutrophils/100 WBC (Bld) 74.3 % Normal 37.0 - 80.0 % AO Workflow SS Platelet mean volume (Bld) [Entitic vol] 7.2 fL Low 7.4 - 10.4 fL AO Workflow SS Platelets (Bld) [#/Vol] 240 103/mcL Normal 130 - 400 10^3/mcL AO Workflow SS Potassium [Moles/Vol] 3.9 mmol/L Normal 3.5 - 5.1 mmol/L AO ADM SS RBC (Bld) [#/Vol] 4.28 106/mcL Normal 4.04 - 6.1 3 10^6/mcL AO Workflow SS Sodium [Moles/Vol] 139 mmol/L Normal 136 - 145 mmol/L AO ADM SS Troponin I.cardiac DL <= 0.01 ng/mL [Mass/Vol] 6 ng/L Normal 0 - 76 ng/L AO ADM SS Comment on above: Interpretive Data: H igh Sensitive Troponin I Reference Ranges: Female: 0-51 ng/L Male: 0-76 ng/L Testing performed on [facility] using a homogeneous sandwich chemiluminescent immunoassay based on Snapkin technology. Urea nitrogen [Mass/Vol] 14 mg/dL Normal 7 - 18 mg/dL AO ADM SS Urea nitrogen/Creatinine [Mass ratio] 15 ratio Normal 7 - 27 ratio AO ADM SS WBC (Bld) [#/Vol] 10.4 103/mcL Normal 4.6 - 10.8 10^3/mcL AO Workflow SS PBNPon 01-27-2024 Natriuretic peptide B (Bld) [Mass/Vol] 19 pg/mL Normal 0-125 [facility] ([place]) Comment on above: Result Comment: NT-p roBNP results of less than 300 pg/mL effectively rules out acute congestive heart failure with 99% negative predictive value. Performed By: #### A AP DAVIS, SANDY, JANESSA MACIAS, GFR, CBC, ADIFF ####[address] [place], [place] [address] TROPHSon 01-27-2024 High Sensitivity Troponin I 6 ng/L Normal 0-76 [facility] ([place]) Comment on above: Result Comment: High Sensitive Troponin I Reference Ranges: Female: 0-51 ng/L Male: 0-76 ng/L Testing performed on [facility] using a homogeneous sandwich chemiluminescent immunoassay based on Snapkin technology. Performed By: #### A RYAN, AP, SANDY, JANESSA MACIAS, GFR, CBC, ADIFF ####[address] [place], [place] [address] XR CHEST 2 VIEWSon 4 XR CHEST 2 VIEWS ORIGINAL EXAMINATION: TWO XRAY VIEWS OF THE CHEST 01/27/2024 12:25 am COMPARISON: None. HISTORY: ORDERING SYSTEM PROVIDED HISTORY: Reason for Exam: Shortness of breath onset one week. SOB/Cough/Fever FINDINGS: Interstitial and alveolar haziness throughout the lungs bilaterally. No pneumothorax. No large effusion. Mild hazy airspace disease is greatest at the lung bases. Heart size is normal. IMPRESSION: Mild hazy airspace disease bilaterally greatest at the lung bases. Findings could represent atelectasis versus developing infiltrate. Interpreted by: Michael Ledezma MD Preliminary Report By: Michael Ledezma MD Electronically signed By Michael Ledezma MD Dictated Date: 01/27/2024 12:30:33 AM Prelim Date: 01/27/2024 12:31:12 AM Sign Date: 01/27/2024 12:31:12 AM Ordering Provider: WES Ascencio [facility] ([place]) Emergency Department Summary on 01-15-[address] 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 Luci Licona, DO Status:REG ER Location: ED I have personally performed a face to face assessment of the patient and have reviewed the ADELA Note. Patient present secondary to acute on chronic back pain. He is currently on gabapentin and oxycodone at home regularly for chronic back pain. 2 or 3 days ago he caught his toe on a step and fell forward twisting his back. He has had problems with intermittent spasms since that time. He states today he was walking in his yard when he had worsened pain and spasm. He has not been able to get comfortable. Patient lying supine in the bed. He appears uncomfortable but in no distress. Head and neck examination unremarkable. Heart is regular rate and rhythm. Lung sounds are clear. Abdomen is soft, obese, nontender. Patient has good strength and sensation in the extremities. Patient given IM Dilaudid and Norflex. After second dose of Dilaudid patient is resting comfortably and feels much improved. He will be discharged home to continue his chronic pain medications. Return instructions provided. HPI History of Present Illness Chief Complaint: Back Narrative Narrative: Patient is a 44-year-old male with history of chronic back pain, chronic respiratory failure with hypoxia on 3 L nasal cannula, morbid obesity, psoriasis who presents to the emergency department 3 days of lower back pain. Patient states he tripped going up the steps, bracing himself he denies any falling or traumatic process to his back. He states that he felt that he emi his back muscles. He states over the last 2 to 3 days the pain is beginning much worse. He is having difficulty walking. He denies any bowel or bladder continence, denies any fever chills nausea or vomiting. [facility] Medical History Ambulates with cane Asthma Back pain Chewing tobacco use Chronic acquired lymphedema COPD (chronic obstructive pulmonary disease) Degeneration of intervertebral disc of lumbosacral region Depression Diabetes Fatty liver HTN (hypertension) Loose, teeth Morbid obesity On home oxygen therapy ANTONIO (obstructive sleep apnea) Psoriasis Radiculopathy of lumbosacral region Restless legs Seizures Tobacco dependence syndrome Home Medications cyclobenzaprine 10 mg tablet 10 mg PO TID muscle relaxer 08/07/16 [History Last Taken 05/17/22] gabapentin 600 mg tablet 600 mg PO TIDCM neuropathy 08/07/16 [History Last Taken 05/17/22] oxycodone 5 mg tablet 15 mg PO TID PRN Pain 08/07/16 [History Last Taken 05/17/22] duloxetine 20 mg capsule,delayed release (Cymbalta) 20 mg PO DAILY depression 12/29/17 [History Last Taken 05/17/22] furosemide 40 mg tablet 80 mg PO DAILY water pill 12/29/17 [History Last Taken 05/17/22] metoprolol succinate 25 mg tablet,extended release 24 hr 25 mg PO BID heart 12/29/17 [History Last Taken 05/17/22] dicyclomine 10 mg capsule 20 mg PO TIDAC Pain 08/27/19 [History Last Taken 05/17/22] albuterol sulfate 2.5 mg/3 mL (0.083 %) solution for nebulization 2.5 mg (3 mL) inhalation Q4H PRN Sob /Or Wheezing #180 mL 01/09/20 [Rx Last Taken 05/17/22] albuterol sulfate 90 mcg/actuation breath activated powder inhaler (ProAir RespiClick) 2 inh inhalation Q4H PRN shortness of breath or wheezing #1 ea 01/09/20 [Rx Last Taken 05/17/22] metformin 500 mg tablet,extended release 24 hr 500 mg PO BID 08/07/20 [History Last Taken 05/17/22] montelukast 10 mg tablet 10 mg PO QPM #30 tabs 05/09/21 [Rx Last Taken 05/17/22] tiotropium bromide 2.5 mcg/actuation mist for inhalation (Spiriva Respimat) 2 puff inhalation QHS #4 grams 11/12/21 [Rx Last Taken 05/17/22] Symbicort 160 mcg-4.5 mcg/actuation HFA aerosol inhaler (budesonide-formote rol) 2 puff inhalation BID #10.2 grams 11/13/21 [Rx Last Taken 05/17/22] cetirizine 10 mg capsule (Zyrtec) 10 mg PO HS 05/13/22 [History Last Taken 05/17/22] loperamide 2 mg capsule (Imodium A-D) 4 mg PO Q4H PRN PRN Diarrhea 05/13/22 [History Last Taken 05/17/22] clindamycin HCl 300 mg capsule 300 mg PO 4X/DAY 10 days #40 caps 12/04/22 [Rx Last Taken Unknown] clindamycin HCl 300 mg capsule (Cleocin HCl) 300 mg PO 4X/DAY 10 days #40 CAPSULES 12/04/22 [Rx Last Taken Unknown] clindamycin HCl 300 mg capsule 300 mg PO Q8H 10 days #30 caps 11/27/23 [Rx Last Taken Unknown] metaxalone 400 mg tablet 800 mg (2 x 400 mg) PO TID PRN muscle pain #20 tabs 01/15/24 [Rx Last Taken Unknown] Allergy/AdvReac Type Severity Reaction Status Date / Time No Known Allergies Allergy Verified 01/15/24 16:56 Family History M (more content not included)... Normal [facility] Absolute lymphocyte countOrd ered By: Angel Grande on 11-27-2023 Lymphocytes Auto (Unsp spec) [#/Vol] 1.53 10*3/uL 0.83-4.51 [facility] Automated lymphocyte count a s percentage of total leukocytesOrdered By: Angel Grande on 11-27-2023 Lymphocytes/100 WBC Auto (Unsp spec) 14.4 % 19-41 [facility] Basic Metabolic Profile (BMP )on 11-27-2023 BUN/CRE 16.0 RATIO Normal 10-20 [facility] Comment on above: Performed By: #### L 500.2500, L100.0100 #### [facility] [address] [place], [address] CA,Total 8.9 mg/dL Normal 8.5-10.1 [facility] Comment on above: Performed By: #### L 500.2500, L100.0100 #### [facility] [address] [place], [address] Chloride [Moles/Vol] 104 mmol/L Normal 98-107 [facility] Comment on above: Performed By: #### L 500.2500, L100.0100 #### [facility] [address] [place], [address] CO2 [Moles/Vol] 31.0 mmol/L Normal 21.0-32.0 [facility] Comment on above: Performed By: #### L 500.2500, L100.0100 #### [facility] [address] [place], [address] Creatinine [Mass/Vol] 0.75 mg/dL Normal 0.70-1.30 [facility] Comment on above: Result Comment: The validity of the calculated GFR GFRAA in patients over 70 years has not been determined. Clinical correlation is essential. Performed By: #### L 500.2500, L100.0100 #### [facility] [address] [place], [address] ECRCL 270.61 ml/min Normal [facility] Comment on above: Performed By: #### L 500.2500, L100.0100 #### [facility] [address] [place], [address] EST GFR - AA 146 mL/min Normal >60 [facility] Comment on above: Result Comment: Afri can [place] GFR Calc Performed By: #### L 500.2500, L100.0100 #### [facility] [address] [place], [address] GAP 4 Low 5-15 [facility] Comment on above: Performed By: #### L 500.2500, L100.0100 #### [facility] [address] [place], [address] GFR/1.73 sq M.predicted among non-blacks MDRD (S/P/Bld) [Vol rate/Area] 121 mL/min/{1.73_m2} Normal >60 [facility] Comment on above: Result Comment: Non- GFR Calc Performed By: #### L 500.2500, L100.0100 #### [facility] [address] [place], [address] Glucose [Mass/Vol] 125 mg/dL High 74-106 [facility] Comment on above: Result Comment: Fast ing Glucose result from 100 to 125 mg/dL suggests IMPAIRED HOMEOSTASIS per A.D.A. criteria. Performed By: #### L 500.2500, L100.0100 #### [facility] [address] [place], [address] Potassium [Moles/Vol] 3.9 mmol/L Normal 3.5-5.1 [facility] Comment on above: Performed By: #### L 500.2500, L100.0100 #### [facility] [address] [place], [address] Sodium [Moles/Vol] 139 mmol/L Normal 136-145 [facility] Comment on above: Performed By: #### L 500.2500, L100.0100 #### [facility] [address] [place], [address] Urea nitrogen [Mass/Vol] 12 mg/dL Normal 7-18 [facility] Comment on above: Performed By: #### L 500.2500, L100.0100 #### [facility] [address] [place], [address] Basophil percentageOrdered B y: Angel Grande on 11-27-2023 Basophils/100 WBC (Bld) 0.6 % 0-1 [facility] Chloride [Moles/Vol] 104 mmol/L 98-107 [facility] Eosinophils/100 WBC (Bld) 2.5 % 0-5 [facility] Glucose [Mass/Vol] 125 mg/dL 74-106 [facility] Comment on above: Fasting Glucose resu lt from 100 to 125 mg/dL suggests IMPAIRED HOMEOSTASIS per A.D.A. criteria. Hemoglobin (Bld) [Mass/Vol] 12.5 g/dL 13.0-16.5 [facility] Monocytes/100 WBC (Bld) 5.4 % 0-10 [facility] Neutrophils (Bld) [#/Vol] 8.2 10*3/uL 2.0-7.7 [facility] Neutrophils/100 WBC (Bld) 76.8 % 47-70 [facility] Potassium [Moles/Vol] 3.9 mmol/L 3.5-5.1 [facility] Sodium [Moles/Vol] 139 mmol/L 136-145 [facility] WBC (Bld) [#/Vol] 10.7 10*3/uL 4.4-11.0 [facility] CBC W/Diff, Automatedon 11-05 Absolute Lymph 1.53 X10 3/uL Normal 0.83-4.51 [facility] Comment on above: Performed By: #### L 500.2500, L100.0100 #### [facility] [address] [place], [address] Absolute Neut 8.2 X10 3/uL High 2.0-7.7 [facility] Comment on above: Performed By: #### L 500.2500, L100.0100 #### [facility] [address] [place], [address] Basophils/100 WBC (Bld) 0.6 % Normal 0-1 [facility] Comment on above: Performed By: #### L 500.2500, L100.0100 #### [facility] [address] [place], [address] Eosinophils/100 WBC (Bld) 2.5 % Normal 0-5 [facility] Comment on above: Performed By: #### L 500.2500, L100.0100 #### [facility] [address] [place], [address] Erythrocyte distribution width (RBC) [Ratio] 14.2 % Normal 11.6-14.6 [facility] Comment on above: Performed By: #### L 500.2500, L100.0100 #### [facility] [address] [place], [address] Hematocrit (Bld) [Volume fraction] 38.8 % Low 40-54 [facility] Comment on above: Performed By: #### L 500.2500, L100.0100 #### [facility] [address] [place], [address] Hemoglobin (Bld) [Mass/Vol] 12.5 g/dL Low 13.0-16.5 [facility] Comment on above: Performed By: #### L 500.2500, L100.0100 #### [facility] [address] [place], [address] IG% 0.300 Normal 0.0-0.9 [facility] Comment on above: Result Comment: IG% - Immature Granulocytes (promyelocytes, myelocytes and metamyelocytes) > 1% indicates that a LEFT SHIFT is Present. Performed By: #### L 500.2500, L100.0100 #### [facility] [address] [place], [address] Lymphocytes/100 WBC (Bld) 14.4 % Low 19-41 [facility] Comment on above: Performed By: #### L 500.2500, L100.0100 #### [facility] [address] [place], [address] MCH (RBC) [Entitic mass] 29.1 pg Normal 27.0-32.0 [facility] Comment on above: Performed By: #### L 500.2500, L100.0100 #### [facility] [address] [place], [address] MCHC (RBC) [Mass/Vol] 32.2 g/dL Normal 32-36 [facility] Comment on above: Performed By: #### L 500.2500, L100.0100 #### [facility] [address] [place], [address] MCV (RBC) [Entitic vol] 90.2 fL Normal 80-94 [facility] Comment on above: Performed By: #### L 500.2500, L100.0100 #### [facility] [address] [place], [address] Monocytes/100 WBC (Bld) 5.4 % Normal 0-10 [facility] Comment on above: Performed By: #### L 500.2500, L100.0100 #### [facility] [address] [place], [address] Neutrophils/100 WBC (Bld) 76.8 % High 47-70 [facility] Comment on above: Performed By: #### L 500.2500, L100.0100 #### [facility] [address] [place], [address] Nucleated RBC (Bld) [#/Vol] 0 10*3/uL Normal 0-5 [facility] Comment on above: Performed By: #### L 500.2500, L100.0100 #### [facility] [address] [place], [address] Platelet mean volume (Bld) [Entitic vol] 9.2 fL Normal 6.2-12.0 [facility] Comment on above: Performed By: #### L 500.2500, L100.0100 #### [facility] [address] [place], [address] Platelets (Bld) [#/Vol] 257 10*3/uL Normal 150-450 [facility] Comment on above: Performed By: #### L 500.2500, L100.0100 #### [facility] [address] [place], [address] RBC (Bld) [#/Vol] 4.30 10*6/uL Low 4.6-6.2 [facility] Comment on above: Performed By: #### L 500.2500, L100.0100 #### [facility] [address] [place], [address] RDW SD 46.6 fl High 35.1-43.9 [facility] Comment on above: Performed By: #### L 500.2500, L100.0100 #### [facility] [address] [place], [address] WBC (Bld) [#/Vol] 10.7 10*3/uL Normal 4.4-11.0 [facility] Comment on above: Performed By: #### L 500.2500, L100.0100 #### [facility] [address] [place], [address] Determination of erythrocyte mean corpuscular volume (MCV)Ordered By: Angel Grande on 11-27-2023 MCV (RBC) [Entitic vol] 90.2 fL 80-94 [facility] Emergency Department Summary on 11-27-[address] [facility] [address] [place] [address] Emergency Department Summary 11/27/23 MR#: [id number] Acct: [id number] Name: SASHA JAOCBS II Rep #: [id number] : 1980 43 From: Angel Grande MD PCP: Dr. Luci Licona, DO Status:REG ER Location: ED HPI History of Present Illness Chief Complaint: Cellulitis Informant: patient Onset/Context/Dusty hensley Onset: Weeks Context: Gradual Onset Timing: Continuous Current Severity: Moderate Maximum Severity: Moderate Narrative Narrative: 43-year-old male history of chronic respiratory failure on 2 L of oxygen, COPD, diabetes, severe psoriasis and morbid obesity. Patient's had prior cellulitis on his lower extremities. He has developed a sore in his left lower leg in the last 3 to 4 weeks. He has been on doxycycline twice a day for the last 2 weeks that he said only getting worse. He sayings having discomfort in his left leg gets more red. He denies any fever or chills. He has never had a blood clot he has been worked up for those before. Prior similar symptoms: Yes Recent Illness/Hospitaliza tion: No PFSH PFSH Medical History Ambulates with cane Asthma Back pain Chewing tobacco use Chronic acquired lymphedema COPD (chronic obstructive pulmonary disease) Degeneration of intervertebral disc of lumbosacral region Depression Diabetes Fatty liver HTN (hypertension) Loose, teeth Morbid obesity On home oxygen therapy ANTONIO (obstructive sleep apnea) Psoriasis Radiculopathy of lumbosacral region Restless legs Seizures Tobacco dependence syndrome Home Medications cyclobenzaprine 10 mg tablet 10 mg PO TID muscle relaxer 08/07/16 [History Last Taken 05/17/22] gabapentin 600 mg tablet 600 mg PO TIDCM neuropathy 08/07/16 [History Last Taken 05/17/22] oxycodone 5 mg tablet 15 mg PO TID PRN Pain 08/07/16 [History Last Taken 05/17/22] duloxetine 20 mg capsule,delayed release (Cymbalta) 20 mg PO DAILY depression 12/29/17 [History Last Taken 05/17/22] furosemide 40 mg tablet 80 mg PO DAILY water pill 12/29/17 [History Last Taken 05/17/22] metoprolol succinate 25 mg tablet,extended release 24 hr 25 mg PO BID heart 12/29/17 [History Last Taken 05/17/22] dicyclomine 10 mg capsule 20 mg PO TIDAC Pain 08/27/19 [History Last Taken 05/17/22] albuterol sulfate 2.5 mg/3 mL (0.083 %) solution for nebulization 2.5 mg (3 mL) inhalation Q4H PRN Sob /Or Wheezing #180 mL 01/09/20 [Rx Last Taken 05/17/22] albuterol sulfate 90 mcg/actuation breath activated powder inhaler (ProAir RespiClick) 2 inh inhalation Q4H PRN shortness of breath or wheezing #1 ea 01/09/20 [Rx Last Taken 05/17/22] metformin 500 mg tablet,extended release 24 hr 500 mg PO BID 08/07/20 [History Last Taken 05/17/22] montelukast 10 mg tablet 10 mg PO QPM #30 tabs 05/09/21 [Rx Last Taken 05/17/22] tiotropium bromide 2.5 mcg/actuation mist for inhalation (Spiriva Respimat) 2 puff inhalation QHS #4 grams 11/12/21 [Rx Last Taken 05/17/22] Symbicort 160 mcg-4.5 mcg/actuation HFA aerosol inhaler (budesonide-formote rol) 2 puff inhalation BID #10.2 grams 11/13/21 [Rx Last Taken 05/17/22] cetirizine 10 mg capsule (Zyrtec) 10 mg PO HS 05/13/22 [History Last Taken 05/17/22] loperamide 2 mg capsule (Imodium A-D) 4 mg PO Q4H PRN PRN Diarrhea 05/13/22 [History Last Taken 05/17/22] clindamycin HCl 300 mg capsule 300 mg PO 4X/DAY 10 days #40 caps 12/04/22 [Rx Last Taken Unknown] clindamycin HCl 300 mg capsule (Cleocin HCl) 300 mg PO 4X/DAY 10 days #40 CAPSULES 12/04/22 [Rx Last Taken Unknown] clindamycin HCl 300 mg capsule 300 mg PO Q8H 10 days #30 caps 11/27/23 [Rx Last Taken Unknown] Allergy/AdvReac Type Severity Reaction Status Date / Time No Known Allergies Allergy Verified 11/27/23 18:42 Family History Mother Diabetes Father Diabetes Heart disease Surgical History History of back surgery Social History household members: none Smoking Status: Former smoker Smokeless tobacco user: chewing tobacco alcohol intake: former substance use type: does not use ROS ROS ED ROS Narrative Denies recent illness. Worsening redness left lower leg. Review of Systems ROS Unobtainable: Denies due to encephalopathy Constitutional Constitutional ED: Denies chills or fever(s) Eyes Eyes: Denies blurry vision ENT ENT ED: Denies ear pain Cardiovascular Cardiovascular: Denies chest pain Respiratory/Chest Respiratory/Chest: Reports other Details: Chronic respiratory failure on 2 to 4 L of oxygen. ; Denies cough Gastrointestinal Gastrointestinal: Denies abdominal pain, constipation, diarrhea, nausea or vomiting Genitourinary Genitourinary (more content not included)... Normal [facility] Erythrocyte distribution wid th ratioOrdered By: Angel Grande on 11-27-2023 Erythrocyte distribution width (RBC) [Ratio] 14.2 % 11.6-14.6 [facility] Erythrocyte distribution wid th standard deviationOrdered By: Angel Grande on 11-27-2023 Erythrocyte distribution width (RBC) [Entitic vol] 46.6 fL 35.1-43.9 [facility] Hematocrit Auto (Bld) [Volum e fraction]Ordered By: Angel Grande on 11-27-2023 Hematocrit (Bld) [Volume fraction] 38.8 % 40-54 [facility] Immature granulocytes/100 WB C Auto (Bld)Ordered By: Angel Grande on 11-27-2023 Immature granulocytes/100 WBC (Bld) 0.300 % 0.0-0.9 [facility] Comment on above: IG% - Immature Granu locytes (promyelocytes, myelocytes and metamyelocytes) > 1% indicates that a LEFT SHIFT is Present. Laboratory - Chemistry and C hemistry - challengeOrdered By: Angel Grande on 11-27-2023 CO2 [Moles/Vol] 31.0 mmol/L 21.0-32.0 [facility] Urea nitrogen/Creatinine [Mass ratio] 16.0 mg/mg 10-20 [facility] - Hematology and Cell countsOrdered By: Angel Grande on 11-27-2023 MCH (RBC) [Entitic mass] 29.1 pg 27.0-32.0 [facility] MCHC (RBC) [Mass/Vol] 32.2 g/dL 32-36 [facility] Nucleated RBC/100 WBC (Bld) [Ratio] 0 % 0-5 [facility] Platelet mean volume (Bld) [Entitic vol] 9.2 fL 6.2-12.0 [facility] Platelets (Bld) [#/Vol] 257 10*3/uL 150-450 [facility] No Panel InformationOrdered By: Angel Grande on 11-27-2023 Estimated Creatinine Clearance Calc 270.61 ml/min [facility] Estimated GFR (MDRD) Amer 146 mL/min >60 [facility] Comment on above: GFR Calc Estimated GFR (MDRD) Non-Af Amer 121 mL/min >60 [facility] Comment on above: Non- GFR Calc RBC Auto (Bld) [#/Vol]Ordere d By: Angel Grande on 11-27-2023 RBC (Bld) [#/Vol] 4.30 10*6/uL 4.6-6.2 [facility] Serum or plasma calcium john urement (mass/volume)Ordered By: Angel Grande on 11-27-2023 Calcium [Mass/Vol] 8.9 mg/dL 8.5-10.1 [facility] Serum or plasma creatinine m easurement (mass/volume)Ordered By: Angel Grande on 11-27-2023 Creatinine [Mass/Vol] 0.75 mg/dL 0.70-1.30 [facility] Comment on above: The validity of the calculated GFR & GFRAA in patients over 70 years has not been determined. Clinical correlation is essential. Serum or plasma urea nitroge n measurement (mass/volume)Ordered By: Angel Grande on 11-27-2023 Urea nitrogen [Mass/Vol] 12 mg/dL -18 [facility] Thin prep Papanicolaou smear with manual screeningOrdered By: Angel Grande on 11-27-2023 Thin prep Papanicolaou smear with manual screening 4 5-15 [facility] .Auto Diffon 11-21-2023 Basophil, Absolute 0.1 10 3/mcL Normal 0.0-0.2 [facility] ([place]) Comment on above: Performed By: #### A RYAN, GFR, JANESSA MAURO, BMP, CBC #### [address] [address] Basophils/100 WBC (Bld) 0.6 % Normal 0.0-2.5 [facility] ([place]) Comment on above: Performed By: #### A RYAN, GFR, JANESSA MAURO, BMP, CBC #### [address] [place], [place] [address] Eosinophil, Absolute 0.2 10 3/mcL Normal 0.0-0.4 [facility] ([place]) Comment on above: Performed By: #### A RYAN, GFR, ADIFF, MDW, BMP, CBC #### [address] [address] Eosinophils/100 WBC (Bld) 2.1 % Normal 0.0-7.0 [facility] ([place]) Comment on above: Performed By: #### A RYAN, GFR, ADIFF, MDW, BMP, CBC #### [address] [address] Lymphocyte, Absolute 1.4 10 3/mcL Normal 0.8-3.9 [facility] ([place]) Comment on above: Performed By: #### A RYAN, GFR, ADIFF, MDW, BMP, CBC #### [address] [address] Lymphocytes/100 WBC (Bld) 13.7 % Normal 10.0-50.0 [facility] ([place]) Comment on above: Performed By: #### A RYAN, GFR, ADIFF, MDW, BMP, CBC #### [address] [address] Monocyte, Absolute 0.5 10 3/mcL Normal 0.2-1.0 [facility] ([place]) Comment on above: Performed By: #### A RYAN, GFR, ADIFF, MDW, BMP, CBC #### [address] [address] Monocytes/100 WBC (Bld) 4.8 % Normal 1.7-13.0 [facility] ([place]) Comment on above: Performed By: #### A RYAN, GFR, ADIFF, MDW, BMP, CBC #### [address] [address] Neutrophils/100 WBC (Bld) 78.8 % Normal 37.0-80.0 [facility] ([place]) Comment on above: Performed By: #### A RYAN, GFR, ADIFF, MDW, BMP, CBC #### [address] [address] .GFRon 11-21-2023 GFR Non- 103 ml/min/1.73sqm Normal [facility] ([place]) Comment on above: Result Comment: GFR Population mean for , Non- Americans Ages 20-29 = 116 mL/min/1.73 sq.m. Ages 30-39 = 107 mL/min/1.73 sq.m. Ages 40-49 = 99 mL/min/1.73 sq.m. Ages 50-59 = 93 mL/min/1.73 sq.m. Ages 60-69 = 85 mL/min/1.73 sq.m. Ages 70+ = 75 mL/min/1.73 sq.m. Chronic Kidney Disease: Less than 60 mL/min/1.73 square meters End Stage Renal Disease: Less than 15 mL/min/1.73 square meters Performed By: #### A RYAN, GFR, ADJANESSA PERKINS, BMP, CBC #### [address] [address] GFR 125 ml/min/1.73sqm Normal [facility] ([place]) Comment on above: Result Comment: GFR Population mean for , Non- Americans Ages 20-29 = 116 mL/min/1.73 sq.m. Ages 30-39 = 107 mL/min/1.73 sq.m. Ages 40-49 = 99 mL/min/1.73 sq.m. Ages 50-59 = 93 mL/min/1.73 sq.m. Ages 60-69 = 85 mL/min/1.73 sq.m. Ages 70+ = 75 mL/min/1.73 sq.m. Chronic Kidney Disease: Less than 60 mL/min/1.73 square meters End Stage Renal Disease: Less than 15 mL/min/1.73 square meters Performed By: #### A RYAN, GFR, ADJANESSA PERKINS, BMP, CBC #### [address] [place], [place] [address] .MDWon 11-21-2023 Monocyte Distribution Width 17.31 Normal 0.00-20.00 [facility] ([place]) Comment on above: Result Comment: For ED adult patients suspected of sepsis, MDW<=20.0 does not rule out sepsis or risk of sepsis Performed By: #### A RYAN, GFR, ADIFF, MDW, BMP, CBC #### [address] [address] .NEUABSon 11-21-2023 Neutrophil, Absolute 8.3 10 3/mcL High 2.9-6.2 [facility] ([place]) Comment on above: Performed By: #### A RYAN, GFR, ADIFF, MDW, BMP, CBC #### [address] [address] BMPon 11-21-2023 BUN/Creatinine Ratio 13 ratio Normal 7-27 [facility] ([place]) Comment on above: Performed By: #### A RYAN, GFR, ADIFF, MDW, BMP, CBC #### [address] [address] Calcium [Mass/Vol] 8.7 mg/dL Normal 8.4-10.2 [facility] ([place]) Comment on above: Performed By: #### A RYAN, GFR, ADIFF, MDW, BMP, CBC #### [address] [address] Chloride [Moles/Vol] 102 mmol/L Normal 98-107 [facility] ([place]) Comment on above: Performed By: #### A RYAN, GFR, ADIFF, MDW, BMP, CBC #### [id number] CO2 [Moles/Vol] 28 mmol/L Normal 22-29 [facility] ([place]) Comment on above: Performed By: #### A RYAN, GFR, ADIFF, MDW, BMP, CBC #### [id number] Creatinine [Mass/Vol] 0.82 mg/dL Normal 0.70-1.30 [facility] ([place]) Comment on above: Performed By: #### A RYAN, GFR, ADIFF, MDW, BMP, CBC #### [id number] Electrolyte Balance 8.0 mEq/L Normal 4.0-15.0 [facility] ([place]) Comment on above: Performed By: #### A RYAN, GFR, ZUNILDA, W, BMP, CBC #### [address] [address] Glucose [Mass/Vol] 118 mg/dL High 70-105 [facility] ([place]) Comment on above: Performed By: #### A RYAN, GFR, ADIFF, MDW, BMP, CBC #### [address] [address] Potassium [Moles/Vol] 4.3 mmol/L Normal 3.5-5.1 [facility] ([place]) Comment on above: Performed By: #### A RYAN, GFR, ADGREGORIO, MDW, BMP, CBC #### [address] [address] Sodium [Moles/Vol] 138 mmol/L Normal 136-145 [facility] ([place]) Comment on above: Performed By: #### A RYAN, GFR, ADGREGORIO, MDW, BMP, CBC #### [address] [address] Urea nitrogen [Mass/Vol] 11 mg/dL Normal 7-18 [facility] ([place]) Comment on above: Performed By: #### A RYAN, GFR, ADIFF, MDW, BMP, CBC #### [address] [address] CBCon 11-21-2023 Erythrocyte distribution width (RBC) [Ratio] 15.2 % High 11.5-14.5 [facility] ([place]) Comment on above: Performed By: #### A RYAN, GFR, ADIFF, MDW, BMP, CBC #### [address] [address] Hematocrit (Bld) [Volume fraction] 38.0 % Low 42.0-52.0 [facility] ([place]) Comment on above: Performed By: #### A RYAN, GFR, ADIFF, MDW, BMP, CBC #### [address] [address] Hgb 13.0 G/dL Low 14.0-18.0 [facility] ([place]) Comment on above: Performed By: #### A RYAN, GFR, ADIFF, MDW, BMP, CBC #### [address] [address] MCH (RBC) [Entitic mass] 29.9 pg Normal 27.0-31.2 [facility] ([place]) Comment on above: Performed By: #### A RYAN, GFR, ADIFF, MDW, BMP, CBC #### [address] [address] MCHC 34.3 G/dL Normal 31.8-35.4 [facility] ([place]) Comment on above: Performed By: #### A RYAN, GFR, ADIFF, MDW, BMP, CBC #### [id number] MCV (RBC) [Entitic vol] 87.2 fL Normal 80.0-94.0 [facility] ([place]) Comment on above: Performed By: #### A RYAN, GFR, ADIFF, MDW, BMP, CBC #### [address] [address] Platelet 245 10 3/mcL Normal 130-400 [facility] ([place]) Comment on above: Performed By: #### A RYAN, GFR, ADIFF, MDW, BMP, CBC #### [address] [address] Platelet mean volume (Bld) [Entitic vol] 7.0 fL Low 7.4-10.4 [facility] ([place]) Comment on above: Performed By: #### A RYAN, GFR, ADIFF, MDW, BMP, CBC #### [address] [address] RBC 4.36 10 6/mcL Normal 4.04-6.13 [facility] ([place]) Comment on above: Performed By: #### A RYAN, GFR, ADIFF, MDW, BMP, CBC #### [address] [place], [place] [address] WBC 10.5 10 3/mcL Normal 4.6-10.8 [facility] ([place]) Comment on above: Performed By: #### A RYAN, GFR, JANESSA MAURO, BMP, CBC #### [address] [place], [place] [address] LABORATORYOrdered By: SYSTEM SYSTEM on 11-21-2023 Basophil, Absolute 0.1 103/mcL Normal 0.0 - 0.2 10^3/mcL AO Workflow SS Basophils/100 WBC (Bld) 0.6 % Normal 0.0 - 2.5 % AO Workflow SS Calcium [Mass/Vol] 8.7 mg/dL Normal 8.4 - 10. 2 mg/dL AO ADM SS Chloride [Moles/Vol] 102 mmol/L Normal 98 - 10 7 mmol/L AO ADM SS CO2 [Moles/Vol] 28 mmol/L Normal 22 - 29 mmol/L AO ADM SS Creatinine [Mass/Vol] 0.82 mg/dL Normal 0.70 - 1.30 mg/dL AO ADM SS Electrolyte Balance 8.0 mEq/L Normal 4.0 - 15 .0 mEq/L AO ADM SS Eosinophil, Absolute 0.2 103/mcL Normal 0.0 - 0 .4 10^3/mcL AO Workflow SS Eosinophils/100 WBC (Bld) 2.1 % Normal 0.0 - 7.0 % AO Workflow SS Erythrocyte distribution width (RBC) [Ratio] 15.2 % High 11.5 - 14.5 % AO Workflow SS GFR/1.73 sq M.predicted among blacks MDRD (S/P/Bld) [Vol rate/Area] 125 ml/min/1.73sqm Invalid Interpretation Code AO Chemistry S Comment on above: Interpretive Data: GFR Population mean for , Non- Americans Ages 20-29 = 116 mL/min/1.73 sq.m. Ages 30-39 = 107 mL/min/1.73 sq.m. Ages 40-49 = 99 mL/min/1.73 sq.m. Ages 50-59 = 93 mL/min/1.73 sq.m. Ages 60-69 = 85 mL/min/1.73 sq.m. Ages 70+ = 75 mL/min/1.73 sq.m. Chronic Kidney Disease: Less than 60 mL/min/1.73 square meters End Stage Renal Disease: Less than 15 mL/min/1.73 square meters GFR/1.73 sq M.predicted among non-blacks MDRD (S/P/Bld) [Vol rate/Area] 103 ml/min/1.73sqm Invalid Interpretation Code AO Chemistry S Comment on above: Interpretive Data: GFR Population mean for , Non- Americans Ages 20-29 = 116 mL/min/1.73 sq.m. Ages 30-39 = 107 mL/min/1.73 sq.m. Ages 40-49 = 99 mL/min/1.73 sq.m. Ages 50-59 = 93 mL/min/1.73 sq.m. Ages 60-69 = 85 mL/min/1.73 sq.m. Ages 70+ = 75 mL/min/1.73 sq.m. Chronic Kidney Disease: Less than 60 mL/min/1.73 square meters End Stage Renal Disease: Less than 15 mL/min/1.73 square meters Glucose [Mass/Vol] 118 mg/dL High 70 - 105 mg/dL AO ADM SS Hematocrit (Bld) [Volume fraction] 38.0 % Low 42.0 - 52.0 % AO Workflow SS Hemoglobin (Bld) [Mass/Vol] 13.0 G/dL Low 14.0 - 18.0 G/dL AO Workflow SS Lymphocyte, Absolute 1.4 103/mcL Normal 0.8 - 3 .9 10^3/mcL AO Workflow SS Lymphocytes/100 WBC (Bld) 13.7 % Normal 10.0 - 50.0 % AO Workflow SS MCH (RBC) [Entitic mass] 29.9 pg Normal 27.0 - 31.2 pg AO Workflow SS MCHC 34.3 G/dL Normal 31.8 - 35.4 G/dL AO Workflow SS MCV (RBC) [Entitic vol] 87.2 fL Normal 80.0 - 94.0 fL AO Workflow SS Monocyte distribution width Auto (Bld) [Entitic vol] 17.31 1 Normal 0.00 - 20.00 AO Workflow SS Comment on above: Result Comment: For ED adult patients suspected of sepsis, MDW<=20.0 does not rule out sepsis or risk of sepsis Monocyte, Absolute 0.5 103/mcL Normal 0.2 - 1.0 10^3/mcL AO Workflow SS Monocytes/100 WBC (Bld) 4.8 % Normal 1.7 - 13.0 % AO Workflow SS Neutrophil, Absolute 8.3 103/mcL High 2.9 - 6 .2 10^3/mcL AO Workflow SS Neutrophils/100 WBC (Bld) 78.8 % Normal 37.0 - 80.0 % AO Workflow SS Platelet mean volume (Bld) [Entitic vol] 7.0 fL Low 7.4 - 10.4 fL AO Workflow SS Platelets (Bld) [#/Vol] 245 103/mcL Normal 130 - 400 10^3/mcL AO Workflow SS Potassium [Moles/Vol] 4.3 mmol/L Normal 3.5 - 5.1 mmol/L AO ADM SS RBC (Bld) [#/Vol] 4.36 106/mcL Normal 4.04 - 6.1 3 10^6/mcL AO Workflow SS Sodium [Moles/Vol] 138 mmol/L Normal 136 - 145 mmol/L AO ADM SS Urea nitrogen [Mass/Vol] 11 mg/dL Normal 7 - 18 mg/dL AO ADM SS Urea nitrogen/Creatinine [Mass ratio] 13 ratio Normal 7 - 27 ratio AO ADM SS WBC (Bld) [#/Vol] 10.5 103/mcL Normal 4.6 - 10.8 10^3/mcL AO Workflow SS No Panel Informationon 11-21 Microscopic examination of blood, culture Culture has been received in lab and is no growth to date. Routine cultures are held for 5 days. [facility] Absolute lymphocyte countOrd ered By: Dex Velasco on 12-04-2022 Lymphocytes Auto (Unsp spec) [#/Vol] 2.13 10*3/uL 0.83-4.51 [facility] Basophil percentageOrdered B y: Dex Velasco on 12-04-2022 Basophils/100 WBC (Bld) 0.6 % 0-1 [facility] Chloride [Moles/Vol] 105 mmol/L 98-107 [facility] Eosin[facility]/100 WBC (Bld) 2.8 % 0-5 [facility] Glucose [Mass/Vol] 102 mg/dL 74-106 [facility] Comment on above: Fasting Glucose resu lt from 100 to 125 mg/dL suggests IMPAIRED HOMEOSTASIS per A.D.A. criteria. Neutrophils (Bld) [#/Vol] 5.9 10*3/uL 2.0-7.7 [facility] Neutrophils/100 WBC (Bld) 66.2 % 47-70 [facility] Potassium [Moles/Vol] 3.5 mmol/L 3.5-5.1 [facility] Sodium [Moles/Vol] 143 mmol/L 136-145 [facility] WBC (Bld) [#/Vol] 8.9 10*3/uL 4.4-11.0 [facility] Blood erythrocytes count (nu mber/volume)Ordered By: Dex Velasco on 12-04-2022 RBC (Bld) [#/Vol] 4.08 10*6/uL 4.6-6.2 [facility] Blood hemoglobin measurement (mass/volume)Ordered By: Dex Velasco on 12-04-2022 Hemoglobin (Bld) [Mass/Vol] 12.2 g/dL 13.0-16.5 [facility] Blood lymphocytes/100 leukoc ytesOrdered By: Dex Velasco on 12-04-2022 Lymphocytes/100 WBC (Bld) 24.0 % 19-41 [facility] Blood monocytes/100 leukocyt esOrdered By: Dex Velasco on 12-04-2022 Monocytes/100 WBC (Bld) 5.8 % 0-10 [facility] Blood platelet mean volumeOr dered By: Dex Velasco on 12-04-2022 Platelet mean volume (Bld) [Entitic vol] 9.0 fL 6.2-12.0 [facility] Determination of erythrocyte mean corpuscular volume (MCV)Ordered By: Dex Velasco on 12-04-2022 MCV (RBC) [Entitic vol] 92.6 fL 80-94 [facility] Hematocrit Auto (Bld) [Volum e fraction]Ordered By: Dex Velasco on 12-04-2022 Hematocrit (Bld) [Volume fraction] 37.8 % 40-54 [facility] Laboratory - Chemistry and C hemistry - challengeOrdered By: Dex Velasco on 12-04-2022 CO2 [Moles/Vol] 32.0 mmol/L 21.0-32.0 [facility] Natriuretic peptide B (Bld) [Mass/Vol] 14.2 pg/mL 0-100 [facility] Urea nitrogen/Creatinine [Mass ratio] 9.0 mg/mg 10-20 [facility] - Hematology and Cell countsOrdered By: Dex Velasco on 12-04-2022 Erythrocyte distribution width (RBC) [Entitic vol] 47.1 fL 35.1-43.9 [facility] Erythrocyte distribution width (RBC) [Ratio] 13.9 % 11.6-14.6 [facility] Immature granulocytes/100 WBC (Bld) 0.600 % 0.0-0.9 [facility] Comment on above: IG% - Immature Granu locytes (promyelocytes, myelocytes and metamyelocytes) > 1% indicates that a LEFT SHIFT is Present. MCH (RBC) [Entitic mass] 29.9 pg 27.0-32.0 [facility] Nucleated RBC/100 WBC (Bld) [Ratio] 0 % 0-5 [facility] MCHC Auto (RBC) [Mass/Vol]Or dered By: Dex Velasco on 12-04-2022 MCHC (RBC) [Mass/Vol] 32.3 g/dL 32-36 [facility] No Panel InformationOrdered By: Dex Velasco on 12-04-2022 Estimated GFR (MDRD) Amer 142 mL/min >60 [facility] Comment on above: GFR Calc Estimated GFR (MDRD) Non-Af Amer 117 mL/min >60 [facility] Comment on above: Non- GFR Calc Platelets bldOrdered By: Chris Velasco on 12-04-2022 Platelets (Bld) [#/Vol] 207 10*3/uL 150-450 [facility] Serum or plasma calcium john urement (mass/volume)Ordered By: Dex Velasco on 12-04-2022 Calcium [Mass/Vol] 8.5 mg/dL 8.5-10.1 [facility] Serum or plasma creatinine m easurement (mass/volume)Ordered By: Dex Velasco on 12-04-2022 Creatinine [Mass/Vol] 0.77 mg/dL 0.70-1.30 [facility] Comment on above: The validity of the calculated GFR & GFRAA in patients over 70 years has not been determined. Clinical correlation is essential. Serum or plasma urea nitroge n measurement (mass/volume)Ordered By: Dex Velasco on 12-04-2022 Urea nitrogen [Mass/Vol] 7 mg/dL 7-18 [facility] Thin prep Papanicolaou smear with manual screeningOrdered By: Dex Velasco on 12-04-2022 Thin prep Papanicolaou smear with manual screening 6 5-15 [facility] LABORATORYOrdered By: Zara Miller on 11-29-2022 Blood Glucose Interventions Notify physician (11/29/22 5:17 PM) [facility] Glucose [Mass/Vol] 191 mg/dL Invalid Interpretation Code 70 - 110 mg/dL [facility] Glucose Glucometer (BldC) [M ass/Vol]on 05-18-2022 Glucose [Mass/Vol] 167 mg/dL 74-106 [facility] Work Phone: Comment on above: MANAGEMENT OF PATIEN T CARE PER NURSING PROTOCOL Absolute lymphocyte counton 02-12-2022 Lymphocytes Auto (Unsp spec) [#/Vol] 1.84 10*3/uL 0.83-4.51 [facility] Work Phone: Basophil percentageon 2021 Basophils/100 WBC (Bld) 0.7 % 0-1 [facility] Work Phone: Bilirubin [Mass/Vol] 0.70 mg/dL 0.20-1.00 [facility] Work Phone: Comment on above: For patients on eltr ombopag therapy, use of Dimension [place] TBIL is not recommended. Chloride [Moles/Vol] 103 mmol/L 98-107 [facility] Work Phone: Cholesterol [Mass/Vol] 160 mg/dL <200 [facility] Work Phone: Comment on above: <200 mg/dL Desirable 200-240 mg/dL Borderline >240 mg/dL High Risk Eosinophils/100 WBC (Bld) 2.5 % 0-5 [facility] Work Phone: Glucose [Mass/Vol] 131 mg/dL 74-106 [facility] Work Phone: Comment on above: Fasting Glucose resu lt greater than or equal to 126 mg/dL suggests DIABETES MELLITUS per A.D.A. criteria. Neutrophils (Bld) [#/Vol] 7.3 10*3/uL 2.0-7.7 [facility] Work Phone: Neutrophils/100 WBC (Bld) 71.9 % 47-70 [facility] Work Phone: Potassium [Moles/Vol] 4.0 mmol/L 3.5-5.1 [facility] Work Phone: Protein [Mass/Vol] 7.3 g/dL 6.4-8.2 [facility] Work Phone: Sodium [Moles/Vol] 136 mmol/L 136-145 [facility] Work Phone: Triglyceride [Mass/Vol] 347 mg/dL <199 [facility] Work Phone: Comment on above: The drugs N-Acetylcy steine and Metamizole may falsely depress this assay.Serum Triglycerides Reference Interval Normal <150 mg/dL Borderline high 150 - 199 mg/dL High 200 - 499 mg/dL Very High > or = 500 mg/dL WBC (Bld) [#/Vol] 10.1 10*3/uL 4.4-11.0 [facility] Work Phone: Blood erythrocytes count (nu mber/volume)on 02-12-2022 RBC (Bld) [#/Vol] 4.69 10*6/uL 4.6-6.2 [facility] Work Phone: Blood hemoglobin measurement (mass/volume)on 02-12-2022 Hemoglobin (Bld) [Mass/Vol] 13.9 g/dL 13.0-16.5 [facility] Work Phone: Blood lymphocytes/100 leukoc yteson 02-12-2022 Lymphocytes/100 WBC (Bld) 18.2 % 19-41 [facility] Work Phone: Blood monocytes/100 leukocyt eson 02-12-2022 Monocytes/100 WBC (Bld) 6.1 % 0-10 [facility] Work Phone: Blood platelet mean volumeon 02-12-2022 Platelet mean volume (Bld) [Entitic vol] 9.2 fL 6.2-12.0 [facility] Work Phone: Determination of erythrocyte mean corpuscular volume (MCV)on 02-12-2022 MCV (RBC) [Entitic vol] 90.4 fL 80-94 [facility] Work Phone: Hematocrit Auto (Bld) [Volum e fraction]on 02-12-2022 Hematocrit (Bld) [Volume fraction] 42.4 % 40-54 [facility] Work Phone: Laboratory - Chemistry and C hemistry - challengeon 02-12-2022 ALP [Catalytic activity/Vol] 91 U/L 45-117 [facility] Work Phone: ALT [Catalytic activity/Vol] 72 U/L 16-61 [facility] Work Phone: CO2 [Moles/Vol] 30.0 mmol/L 21.0-32.0 [facility] Work Phone: Globulin (S) [Mass/Vol] 3.7 g/dL 2.2-4.2 [facility] Work Phone: Urea nitrogen/Creatinine [Mass ratio] 11.0 mg/mg 10-20 [facility] Work Phone: Laboratory - Hematology and Cell countson 02-12-2022 Erythrocyte distribution width (RBC) [Entitic vol] 47.9 fL 35.1-43.9 [facility] Work Phone: Erythrocyte distribution width (RBC) [Ratio] 14.6 % 11.6-14.6 [facility] Work Phone: Immature granulocytes/100 WBC (Bld) 0.600 % 0.0-0.9 [facility] Work Phone: Comment on above: IG% - Immature Granu locytes (promyelocytes, myelocytes and metamyelocytes) > 1% indicates that a LEFT SHIFT is Present. MCH (RBC) [Entitic mass] 29.6 pg 27.0-32.0 [facility] Work Phone: Nucleated RBC/100 WBC (Bld) [Ratio] 0 % 0-5 [facility] Work Phone: MCHC Auto (RBC) [Mass/Vol]on 02-12-2022 MCHC (RBC) [Mass/Vol] 32.8 g/dL 32-36 [facility] Work Phone: No Panel Informationon 02-12 Estimated GFR (MDRD) Amer 118 mL/min >60 [facility] Work Phone: Comment on above: GFR Calc Estimated GFR (MDRD) Non-Af Amer 97 mL/min >60 [facility] Work Phone: Comment on above: Non- GFR Calc Urine Microalbumin/Creatinin e Ratio 15.6 mg/g CRE <30 [facility] Work Phone: Platelets bldon 02-12-2022 Platelets (Bld) [#/Vol] 233 10*3/uL 150-450 [facility] Work Phone: Serum or plasma albumin john urement (mass/volume)on 02-12-2022 Albumin [Mass/Vol] 3.6 g/dL 3.2-5.0 [facility] Work Phone: Serum or plasma albumin/glob ulin mass ratioon 02-12-2022 Albumin/Globulin [Mass ratio] 1.0 {ratio} 0.9-2.4 [facility] Work Phone: Serum or plasma calcium john urement (mass/volume)on 02-12-2022 Calcium [Mass/Vol] 8.7 mg/dL 8.5-10.1 [facility] Work Phone: Serum or plasma cholesterol in HDL measurement (mass/volume)on 02-12-2022 Cholesterol in HDL [Mass/Vol] 32 mg/dL >40 [facility] Work Phone: Comment on above: The drugs N-Acetylcy steine and Metamizole may falsely depress this assay. Reference Range HDL <40 mg/dL Low HDL Cholesterol HDL >or= 60 mg/dL High HDL Cholesterol Serum or plasma cholesterol in VLDL measurement (mass/volume)on 02-12-2022 Cholesterol in VLDL [Mass/Vol] 69 mg/dL 5-40 [facility] Work Phone: Serum or plasma creatinine m easurement (mass/volume)on 02-12-2022 Creatinine [Mass/Vol] 0.91 mg/dL 0.70-1.30 [facility] Work Phone: Comment on above: The validity of the calculated GFR & GFRAA in patients over 70 years has not been determined. Clinical correlation is essential. Serum or plasma low density lipoprotein (LDL) cholesterol measurement (mass/volume)on 02-12-2022 Cholesterol in LDL [Mass/Vol] 59 mg/dL 0-130 [facility] Work Phone: Serum or plasma urea nitroge n measurement (mass/volume)on 02-12-2022 Urea nitrogen [Mass/Vol] 10 mg/dL 7-18 [facility] Work Phone: Thin prep Papanicolaou smear with manual screeningon 02-12-2022 Thin prep Papanicolaou smear with manual screening 43 U/L 15-37 [facility] Work Phone: Thin prep Papanicolaou smear with manual screening 3 5-15 [facility] Work Phone: Thin prep Papanicolaou smear with manual screening 37.7 mg/L NO RANGE EST. [facility] Work Phone: Urine creatinine measurement (mass/volume)on 02-12-2022 Creatinine (U) [Mass/Vol] 241.00 mg/dL NO RANGE EST. [facility] Work Phone: Whole blood hemoglobin A1c/t otal hemoglobin ratio (mass fraction)on 02-12-2022 HbA1c (Bld) [Mass fraction] 6.4 % 3.8-5.6 [facility] Work Phone: Comment on above: Normal < 5.7 % Predi abetic 5.7 - 6.4 % Diabetic >or= 6.5 % Please note range changes. LABORATORYOrdered By: Karyn Bernard on 01-11-2022 ADMITTED TO INTENSIVE CARE UNIT FOR CONDITION OF INTEREST:FIND:PT:^KAREN ENT:ORD: No (01/11/22 2:36 AM) Invalid Interpretation Code AO Auto Urine SS Basophil, Absolute 0.10 103/mcL Invalid Interpretation Code 0.00 - 0.19 10^3/mcL AO Auto Heme SS Basophils/100 WBC (Bld) 1.0 % Invalid Interpretation Code 0.0 - 2.5 % AO Auto Heme SS Calcium [Mass/Vol] 8.9 mg/dL Invalid Interpretation Code 8.4 - 10.2 mg/dL AO ADM SS Chloride [Moles/Vol] 99 mmol/L Invalid Interpretation Code 98 - 107 mmol/L AO ADM SS CO2 [Moles/Vol] 27 mmol/L Invalid Interpretation Code 22 - 29 mmol/L AO ADM SS Creatinine [Mass/Vol] 1.13 mg/dL Invalid Interpretation Code 0.70 - 1.30 mg/dL AO ADM SS Electrolyte Balance 12.0 mEq/L Invalid Interpretation Code 4.0 - 15.0 mEq/L AO ADM SS EMPLOYED IN A HEALTHCARE SETTING:FIND:PT:^SIRI NT:ORD: No (01/11/22 2:36 AM) Invalid Interpretation Code AO Auto Urine SS Eosinophil, Absolute 0.20 103/mcL Invalid Interpretation Code 0.00 - 0.40 10^3/mcL AO Auto Heme SS Eosinophils/100 WBC (Bld) 1.5 % Invalid Interpretation Code 0.0 - 7.0 % AO Auto Heme SS Erythrocyte distribution width (RBC) [Ratio] 15.0 % Invalid Interpretation Code 11.5 - 14.5 % AO Auto Heme SS FIRST TEST FOR CONDITION OF INTEREST:FIND:PT:^KAREN ENT:ORD: Unknown (01/11/22 2:36 AM) Invalid Interpretation Code AO Auto Urine SS Glucose [Mass/Vol] 177 mg/dL Invalid Interpretation Code 70 - 105 mg/dL AO ADM SS HAS SYMPTOMS RELATED TO CONDITION OF INTEREST:FIND:PT:^KAREN ENT:ORD: Yes (01/11/22 2:36 AM) Invalid Interpretation Code AO Auto Urine SS Hematocrit (Bld) [Volume fraction] 39.1 % Invalid Interpretation Code 42.0 - 52.0 % AO Auto Heme SS Hemoglobin (Bld) [Mass/Vol] 13.3 G/dL Invalid Interpretation Code 14.0 - 18.0 G/dL AO Auto Heme SS Illness or injury onset date and time [id number] Invalid Interpretation Code AO Auto Urine SS Lymphocyte, Absolute 1.40 103/mcL Invalid Interpretation Code 0.77 - 3.85 10^3/mcL AO Auto Heme SS Lymphocytes/100 WBC (Bld) 12.8 % Invalid Interpretation Code 10.0 - 50.0 % AO Auto Heme SS MCH (RBC) [Entitic mass] 29.3 pg Invalid Interpretation Code 27.0 - 31.2 pg AO Auto Heme SS MCHC (RBC) [Mass/Vol] 34.0 G/dL Invalid Interpretation Code 31.8 - 35.4 G/dL AO Auto Heme SS MCV (RBC) [Entitic vol] 86.2 fL Invalid Interpretation Code 80.0 - 94.0 fL AO Auto Heme SS Monocyte, Absolute 0.80 103/mcL Invalid Interpretation Code 0.15 - 1.00 10^3/mcL AO Auto Heme SS Monocytes/100 WBC (Bld) 7.7 % Invalid Interpretation Code 1.7 - 13.0 % AO Auto Heme SS Natriuretic peptide.B prohormone N-Terminal [Mass/Vol] 37 pg/mL Invalid Interpretation Code 0 - 125 pg/mL AO ADM SS Neutrophil, Absolute 8.40 103/mcL Invalid Interpretation Code 2.85 - 6.16 10^3/mcL AO Auto Heme SS Neutrophils/100 WBC (Bld) 77.0 % Invalid Interpretation Code 37.0 - 80.0 % AO Auto Heme SS Patient was hospitalized because of this condition No (01/11/22 2:36 AM) Invalid Interpretation Code AO Auto Urine SS Platelet mean volume (Bld) [Entitic vol] 7.8 fL Invalid Interpretation Code 7.4 - 10.4 fL AO Auto Heme SS Platelets (Bld) [#/Vol] 244 103/mcL Invalid Interpretation Code 130 - 400 10^3/mcL AO Auto Heme SS Potassium [Moles/Vol] 2.8 mmol/L Invalid Interpretation Code 3.5 - 5.1 mmol/L AO ADM SS status Not (01/11/22 2:36 AM) Invalid Interpretation Code AO Auto Urine SS RBC (Bld) [#/Vol] 4.53 106/mcL Invalid Interpretation Code 4.04 - 6.13 10^6/mcL AO Auto Heme SS RESIDES IN A CONGREGATE CARE SETTING:FIND:PT:^PATIE NT:ORD: No (01/11/22 2:36 AM) Invalid Interpretation Code AO Auto Urine SS SARS-CoV-2 (COVID-19) RNA COOPER+probe Ql (Resp) Negative (01/11/22 2:36 AM) Invalid Interpretation Code Negative AO Auto Urine SS SARS-CoV-2 (COVID-19) RNA COOPER+probe Ql (Unsp spec) Negative results do not preclude SARS-CoV-2 infection and should not be used as the sole basis for patient management decisions. Negative results must be combined with clinical observations, patient history, and epidemiological information.There is a risk of false negative values resulting from improperly collected, transported, or handled specimens.There is a risk of false negative values due to the presence of sequence variants in the pathogen targets of the assay, procedural errors, amplification inhibitors in specimens, or inadequate numbers of organisms for amplification.MIKAYLA SARS-CoV-2 Assay is a Real-Time reverse-transcripta se polymerase chain reaction (RT-PCR) based qualitative in vitro diagnostic test intended for the qualitative detection of nucleic acid from the SARS-CoV-2 in nasopharyngeal swab specimens collected from individuals suspected of COVID-19 by their healthcare provider. Testing is limited to laboratories certified under the Clinical Laboratory Improvement Amendments of 1988 (CLIA), 42 U.S.C. 263a, to perform moderate and high complexity tests. Invalid Interpretation Code AO Auto Urine SS Sodium [Moles/Vol] 138 mmol/L Invalid Interpretation Code 136 - 145 mmol/L AO ADM SS Troponin I.cardiac DL <= 0.01 ng/mL [Mass/Vol] 7.2 ng/L Invalid Interpretation Code 0.0 - 76.2 ng/L AO ADM SS Urea nitrogen [Mass/Vol] 12 mg/dL Invalid Interpretation Code 7 - 18 mg/dL AO ADM SS Urea nitrogen/Creatinine [Mass ratio] 11 ratio Invalid Interpretation Code 7 - 27 ratio AO ADM SS WBC (Bld) [#/Vol] 10.90 103/mcL Invalid Interpretation Code 4.60 - 10.80 10^3/mcL AO Auto Heme SS LABORATORYOrdered By: SYSTEM SYSTEM on 01-11-2022 GFR 87 ml/min/1.73sqm Invalid Interpretation Code AO Chemistry S GFR Non- 72 ml/min/1.73sqm Invalid Interpretation Code AO Chemistry S Vital Signs Date Time Vital Sign Value Performing Clinician Facility 01-27-2024 00:39-[address] WES KIM MD [facility] 01-27-2024 00:39-[address] WES Sterling MD [facility] 01-27-2024 00:39-0400 Diastolic Blood Pressure Non-Invasive 59 mm[Hg] DR WES KIM MD [facility] 01-27-2024 00:39-0400 Heart rate 86 /min DR WES KIM MD [facility] 01-27-2024 00:39-0400 Reason For Taking VItal Signs DR WES KIM MD [facility] 01-27-2024 00:39-0400 Respiratory rate 20 /min DR WES KIM MD [facility] 01-27-2024 00:39-0400 Systolic Blood Pressure Non-Invasive 150 mm[Hg] DR WES KIM MD [facility] 01-26-2024 23:58-0400 Heart rate 84 /min DR WES KIM MD [facility] 01-26-2024 23:58-0400 Respiratory rate 18 /min DR WES KIM MD [facility] 01-26-2024 23:31-[address] WES KIM MD [facility] 01-26-2024 23:31-[address] WES Sterling MD [facility] 01-26-2024 23:31-0400 Body height [address] WES KIM MD [facility] 01-26-2024 23:31-0400 Body temperature 97.34 [degF] DR WES KIM MD [facility] 01-26-2024 23:31-0400 Body weight [address] WES KIM MD [facility] 01-26-2024 23:31-0400 Diastolic Blood Pressure Non-Invasive 83 mm[Hg] DR WES KIM MD [facility] 01-26-2024 23:31-0400 Heart rate 81 /min DR WES KIM MD [facility] 01-26-2024 23:31-0400 Respiratory rate 18 /min DR WES KIM MD [facility] 01-26-2024 23:31-0400 Systolic Blood Pressure Non-Invasive 156 mm[Hg] DR WES KIM MD [facility] 01-15-2024 19:28-0400 Body temperature 98.9 [degF] [facility] 01-15-2024 19:28-0400 Diastolic blood pressure 91 mm[Hg] [facility] 01-15-2024 19:28-0400 Heart rate 65 /min [facility] 01-15-2024 19:28-0400 Respiratory rate 16 /min [facility] 01-15-2024 19:28-0400 SaO2% (BldA) [Mass fraction] 97 % [facility] 01-15-2024 19:28-0400 Systolic blood pressure 137 mm[Hg] [facility] 01-15-2024 16:56-0400 Body mass index (BMI) [Ratio] 72.9 kg/m2 [facility] 01-15-2024 16:56-0400 Body weight 257.78 kg [facility] 01-15-2024 16:54-0400 Body height 187.96 cm [facility] 01-15-2024 16:54-0400 Inhaled oxygen flow rate 2 L/min [facility] 11-27-2023 20:56-0500 Body temperature 97.6 [degF] [facility] 11-27-2023 20:56-0500 Diastolic blood pressure 90 mm[Hg] [facility] 11-27-2023 20:56-0500 Heart rate 71 /min [facility] 11-27-2023 20:56-0500 Respiratory rate 16 /min [facility] 11-27-2023 20:56-0500 SaO2% (BldA) [Mass fraction] 96 % [facility] 11-27-2023 20:56-0500 Systolic blood pressure 123 mm[Hg] [facility] 11-27-2023 18:42-0500 Body height 187.96 cm [facility] 11-27-2023 18:42-0500 Body mass index (BMI) [Ratio] 70.6 kg/m2 [facility] 11-27-2023 18:42-0500 Body weight 249.47 kg [facility] 11-27-2023 18:42-0500 Inhaled oxygen flow rate 3 L/min [facility] 11-21-2023 03:41-0500 Blood Pressure Cuff Size ELIZABETH REICHFIELD DO [facility] 11-21-2023 03:41-0500 Blood Pressure Location ELIZABETH REICHFIELD DO [facility] 11-21-2023 03:41-0500 Body height 188 cm ELIZABETH REICHFIELD DO [facility] 11-21-2023 03:41-0500 Body temperature 97.16 [degF] ELIZABETH REICHFIELD DO [facility] 11-21-2023 03:41-0500 Body weight 250 kg ELIZABETH REICHFIELD DO [facility] 11-21-2023 03:41-0500 Diastolic Blood Pressure Non-Invasive 82 mm[Hg] ELIZABETH REICHFIELD DO [facility] 11-21-2023 03:41-0500 Heart rate 69 /min ELIZABETH REICHFIELD DO [facility] 11-21-2023 03:41-0500 Respiratory rate 22 /min ELIZABETH REICHFIELD DO [facility] 11-21-2023 03:41-0500 Systolic Blood Pressure Non-Invasive 153 mm[Hg] ELIZABETH REICHFIELD DO [facility] 08-28-2023 20:07-0500 Body height 188 cm RADHA STAPLETON MD [facility] 08-28-2023 20:07-0500 Body temperature 97.7 [degF] RADHA STAPLETON MD [facility] 08-28-2023 20:07-0500 Body weight 250 kg RADHA STAPLETON MD [facility] 08-28-2023 20:07-0500 Diastolic Blood Pressure Non-Invasive 107 mm[Hg] RADHA STAPLETON MD [facility] 08-28-2023 20:07-0500 Heart rate 90 /min RADHA STAPLETON MD [facility] 08-28-2023 20:07-0500 Respiratory rate 20 /min RADHA STAPLETON MD [facility] 08-28-2023 20:07-0500 Systolic Blood Pressure Non-Invasive 174 mm[Hg] RADHA STAPLETON MD [facility] 06-11-2023 04:12-0400 Body temperature 98.24 [degF] PRINCESS ABEL MD [facility] 06-11-2023 04:12-0400 Diastolic Blood Pressure Non-Invasive 60 1 PRINCESS ABEL MD [facility] 06-11-2023 04:12-0400 Heart rate 82 /min PRINCESS ABEL MD [facility] 06-11-2023 04:12-0400 Respiratory rate 24 /min PRINCESS ABEL MD [facility] 06-11-2023 04:12-0400 Systolic Blood Pressure Non-Invasive 140 1 PRINCESS ABEL MD [facility] 02-06-2023 22:07-0400 Diastolic blood pressure 81 mm[Hg] Dr. Luci Licona Work Phone: [facility] 02-06-2023 22:07-0400 Heart rate 87 /min Dr. Luci Licona Work Phone: [facility] 02-06-2023 22:07-0400 Respiratory rate 16 /min Dr. Luci Licona Work Phone: [facility] 02-06-2023 22:07-0400 SaO2% (BldA) [Mass fraction] 100 % Dr. Luci Licona Work Phone: [facility] 02-06-2023 22:07-0400 Systolic blood pressure 139 mm[Hg] Dr. Luci Licona Work Phone: [facility] 02-06-2023 19:35-0400 Body height 187.[address] Luci Licona Work Phone: [facility] 02-06-2023 19:35-0400 Body mass index (BMI) [Ratio] 73.3 kg/m2 Dr. Luci Licona Work Phone: [facility] 02-06-2023 19:35-0400 Body temperature 97.7 [degF] Dr. Luci Licona Work Phone: [facility] 02-06-2023 19:35-0400 Body weight 258.[address] Luci Licona Work Phone: [facility] 02-06-2023 19:35-0400 Inhaled oxygen flow rate 6 L/min Dr. Luci Licona Work Phone: [facility] 02-06-2023 14:12-0400 Body height 188 cm ALEX MAST MD [facility] 02-06-2023 14:12-0400 Body temperature 98.24 [degF] ALEX MAST MD [facility] 02-06-2023 14:12-0400 Body weight 250 kg ALEX MAST MD [facility] 02-06-2023 14:12-0400 Diastolic Blood Pressure Non-Invasive 81 1 ALEX MAST MD [facility] 02-06-2023 14:12-0400 Heart rate 87 /min ALEX MAST MD [facility] 02-06-2023 14:12-0400 Respiratory rate 20 /min ALEX MAST MD [facility] 02-06-2023 14:12-0400 Systolic Blood Pressure Non-Invasive 141 1 ALEX MAST MD [facility] 02-03-2023 15:11-0400 Body height 188 cm RADHA STAPLETON MD [facility] 02-03-2023 15:11-0400 Body temperature 98.6 [degF] RADHA STAPLETON MD [facility] 02-03-2023 15:11-0400 Body weight 261 kg RADHA STAPLETON MD [facility] 02-03-2023 15:11-0400 Diastolic Blood Pressure Non-Invasive 90 1 RADHA STAPLETON MD [facility] 02-03-2023 15:11-0400 Heart rate 86 /min RADHA STAPLETON MD [facility] 02-03-2023 15:11-0400 Respiratory rate 24 /min RADHA STAPLETON MD [facility] 02-03-2023 15:11-0400 Systolic Blood Pressure Non-Invasive 162 1 RADHA STAPLETON MD [facility] 12-04-2022 04:06-0500 Body mass index (BMI) [Ratio] 74.8 kg/m2 [facility] 12-04-2022 04:06-0500 Body weight 264.3 kg [facility] 12-04-2022 04:06-0500 Diastolic blood pressure 82 mm[Hg] [facility] 12-04-2022 04:06-0500 Heart rate 64 /min [facility] 12-04-2022 04:06-0500 Respiratory rate 18 /min [facility] 12-04-2022 04:06-0500 SaO2% (BldA) [Mass fraction] 100 % [facility] 12-04-2022 04:06-0500 Systolic blood pressure 115 mm[Hg] [facility] 12-04-2022 00:23-0500 Body height 187.96 cm [facility] 12-04-2022 00:23-0500 Body temperature 98.3 [degF] [facility] 11-29-2022 18:30-0500 Body temperature 98.24 [degF] AUTUMN CURTIS MD [facility] 11-29-2022 18:30-0500 Diastolic Blood Pressure Non-Invasive 71 1 AUTUMN CURTIS MD [facility] 11-29-2022 18:30-0500 Heart rate 93 /min AUTUMN CURTIS MD [facility] 11-29-2022 18:30-0500 Respiratory rate 12 /min AUTUMN CURTIS MD [facility] 11-29-2022 18:30-0500 Systolic Blood Pressure Non-Invasive 148 1 AUTUMN CURTIS MD [facility] 11-29-2022 16:53-0500 Body temperature 99.86 [degF] AUTUMN CURTIS MD [facility] 11-29-2022 16:53-0500 Diastolic Blood Pressure Non-Invasive 86 1 AUTUMN CURTIS MD [facility] 11-29-2022 16:53-0500 Heart rate 103 /min AUTUMN CURTIS MD [facility] 11-29-2022 16:53-0500 Respiratory rate 18 /min AUTUMN CURTIS MD [facility] 11-29-2022 16:53-0500 Systolic Blood Pressure Non-Invasive 150 1 AUTUMN CURTIS MD [facility] 08-10-2022 08:54-0500 Body temperature 97.7 [degF] [facility] 08-10-2022 08:54-0500 Diastolic blood pressure 87 mm[Hg] [facility] 08-10-2022 08:54-0500 Heart rate 70 /min [facility] 08-10-2022 08:54-0500 Inhaled oxygen flow rate 3 L/min [facility] 08-10-2022 08:54-0500 Respiratory rate 18 /min [facility] 08-10-2022 08:54-0500 SaO2% (BldA) [Mass fraction] 96 % [facility] 08-10-2022 08:54-0500 Systolic blood pressure 120 mm[Hg] [facility] 08-10-2022 08:13-0500 Body height 187.96 cm [facility] Work Phone: 08-10-2022 08:13-0500 Body mass index (BMI) [Ratio] 70.7 kg/m2 [facility] 08-10-2022 08:13-0500 Body weight 250 kg [facility] 05-18-2022 11:19-0400 Body temperature 98.6 [degF] [facility] Work Phone: 05-18-2022 11:19-0400 Diastolic blood pressure 67 mm[Hg] [facility] Work Phone: 05-18-2022 11:19-0400 Heart rate 80 /min [facility] Work Phone: 05-18-2022 11:19-0400 Respiratory rate 20 /min [facility] Work Phone: 05-18-2022 11:19-0400 SaO2% (BldA) [Mass fraction] 100 % [facility] Work Phone: 05-18-2022 11:19-0400 Systolic blood pressure 157 mm[Hg] [facility] Work Phone: 05-18-2022 11:15-0400 Inhaled oxygen flow rate 2 L/min [facility] Work Phone: 05-18-2022 10:13-0400 Body height 187.96 cm [facility] Work Phone: 05-18-2022 10:13-040 Body mass index (BMI) [Ratio] 71.8 kg/m2 [facility] Work Phone: 05-18-2022 10:13-0400 Body weight 254 kg [facility] Work Phone: 01-11-2022 03:01-0400 Heart rate 83 /min DR SEAN ABEL MD [facility] 01-11-2022 03:01-0400 Respiratory rate 16 /min DR SEAN ABEL MD [facility] 01-11-2022 02:35-0400 Heart rate 89 /min DR SEAN ABEL MD [facility] 01-11-2022 02:35-0400 Respiratory rate 20 /min DR SEAN ABEL MD [facility] 01-11-2022 02:31-0400 Body temperature 98.42 [degF] DR SEAN ABEL MD [facility] 01-11-2022 02:31-0400 Diastolic blood pressure 82 mm[Hg] DR SEAN ABEL MD [facility] 01-11-2022 02:31-0400 Heart rate 87 /min DR SEAN ABEL MD [facility] 01-11-2022 02:31-0400 Mean blood pressure 97 mm[Hg] DR SEAN ABEL MD [facility] 01-11-2022 02:31-0400 Respiratory rate 90 /min DR SEAN ABEL MD [facility] 01-11-2022 02:31-0400 Systolic blood pressure 126 mm[Hg] DR SEAN AEBL MD [facility] 11-12-2021 08:38-0500 Body height 187.[address] Luci Licona Work Phone: [facility] Work Phone: 11-12-2021 08:38-0500 Body mass index (BMI) [Ratio] 64.2 kg/m2 Dr. Luci Licona Work Phone: [facility] Work Phone: 11-12-2021 08:38-0500 Body temperature 97.3 [degF] Dr. Luci Licona Work Phone: [facility] Work Phone: 11-12-2021 08:38-0500 Body weight 226.[address] Luci Licona Work Phone: [facility] Work Phone: 11-12-2021 08:38-0500 Diastolic blood pressure 76 mm[Hg] Dr. Luci Licona Work Phone: [facility] Work Phone: 11-12-2021 08:38-0500 Heart rate 78 /min Dr. Luci Licona Work Phone: [facility] Work Phone: 11-12-2021 08:38-0500 Respiratory rate 16 /min Dr. Luci Licona Work Phone: [facility] Work Phone: 11-12-2021 08:38-0500 SaO2% (BldA) [Mass fraction] 92 % Dr. Luci Licona Work Phone: [facility] Work Phone: 11-12-2021 08:38-0500 Systolic blood pressure 129 mm[Hg] Dr. Luci Licona Work Phone: [facility] Work Phone: 08-08-2021 17:24-0400 Body height 188 cm STAR JULIAN MD [facility] 08-08-2021 17:24-0400 Body temperature 98.06 [degF] STAR JULIAN MD [facility] 08-08-2021 17:24-0400 Body weight 236.4 kg STAR JULIAN MD [facility] 08-08-2021 17:24-0400 diastolic 83 mm[Hg] STAR JULIAN MD [facility] 08-08-2021 17:24-0400 Heart rate 75 /min STAR JULIAN MD [facility] 08-08-2021 17:24-0400 Respiratory rate 24 /min STAR JULIAN MD [facility] 08-08-2021 17:24-0400 systolic 155 mm[Hg] STAR JULIAN MD [facility] 07-19-2021 07:03-0400 Body temperature 98.24 [degF] DR WES KIM MD [facility] 07-19-2021 07:03-0400 Body weight [address] WES KIM MD [facility] 07-19-2021 07:03-0400 Diastolic blood pressure 94 mm[Hg] DR WES KIM MD [facility] 07-19-2021 07:03-0400 Heart rate 97 /min DR WES KIM MD [facility] 07-19-2021 07:03-0400 Respiratory rate 18 /min DR WES KIM MD [facility] 07-19-2021 07:03-0400 Systolic blood pressure 160 mm[Hg] DR WES KIM MD [facility] Encounters Encounter Date Encounter Type Care Provider Facility Start: 12-20-2024 End: 12-20-2024 Emergency department patient visit DR LUCI LICONA DO Facility:[facility] Start: 06-06-2024 ambulatory [facility] ity:A Start: 05-08-2024 End: 05-08-2024 [facility] Start: 02-15-2024 End: 02-15-2024 ambulatory [facility] Start: 01-26-2024 End: 01-27-2024 Emergency department patient visit DR WES KIM MD [facility] Start: 01-15-2024 End: 01-15-2024 Emergency department patient visit [facility] Work Phone: Start: 11-27-2023 End: 11-27-2023 Emergency department patient visit [facility] Work Phone: Start: 11-21-2023 End: 11-21-2023 Emergency department patient visit ELIZABETH GIGI GIBBS [facility] Start: 08-28-2023 End: 08-28-2023 Emergency department patient visit RADHA STAPLETON MD [facility] Start: 06-11-2023 End: 06-11-2023 Emergency department patient visit PRINCESS ABEL MD [facility] Start: 02-06-2023 End: 02-06-2023 Emergency department patient visit Dr. Luci Licona Work Phone: [facility] Start: 02-06-2023 End: 02-06-2023 Emergency department patient visit ALEX MAST MD [facility] Start: 02-03-2023 End: 02-03-2023 Emergency department patient visit RADHA STAPLETON MD [facility] Start: 12-14-2022 End: 12-14-[address] Luci Licona Work Phone: [facility] Work Phone: Start: 12-14-2022 End: 12-14-[address] Luci Licona Work Phone: [facility] Start: 12-14-2022 Non-patient / Non-visit Dr. Jessica Licona Work Phone: [facility] Start: 12-04-2022 End: 12-04-2022 Emergency department patient visit [facility] Start: 11-29-2022 End: 11-29-2022 Emergency department patient visit AUTUMN CURTIS MD [facility] Start: 08-10-2022 End: 08-10-2022 Admission to same day surgery center [facility] Start: 08-10-2022 End: 08-10-2022 ambulatory [facility] Work Phone: Start: 05-18-2022 End: 05-18-2022 Admission to same day surgery [facility] Start: 02-12-2022 End: 02-12-[address] Luci Licona Work Phone: [facility] Start: 01-11-2022 End: 01-11-2022 Emergency department patient visit DR SEAN ABEL MD [facility] Start: 11-25-2021 End: 11-25-[address] Luci Licona Work Phone: [facility] Start: 11-12-2021 End: 11-12-[address] Luci Licona Work Phone: [facility] Start: 08-08-2021 End: 08-08-2021 Emergency department patient visit STAR JULIAN MD [facility] Start: 07-19-2021 End: 07-19-2021 Emergency department patient visit DR WES KIM MD [facility] Procedures Date Procedure Procedure Detail Performing Clinician Start: 02-06-2023 X-ray of lumbar spin e, two or three views Dr. Luci Licona Work Phone: Start: 12-04-2022 Plain chest X-ray Start: 08-10-2022 Local anesthetic lum bar epidural block Start: 08-10-2022 Injection of spinal epidural space Start: 08-10-2022 X-ray of lumbosacral spine Start: 05-18-2022 Injection of spinal epidural space Start: 05-18-2022 Injection using fluoroscopic guidance Start: 05-18-2022 Local anesthetic sac ral epidural block None (qualifier value) DR KARINA KIM MD Plan of Treatment Date Care Activity Detail Author Start: 11-27-2023 [facility] Start: 12-04-2022 US.doppler Lower extremity vessels [facility] Start: 08-10-2022 Njx dx/ther agt pvrt facet jt lmbr/sac 1 level INJ PARAVERT F JNT L/S 1 [facility] Start: 08-10-2022 Njx dx/ther agt pvrt facet jt lmbr/sac 2nd level INJ PARAVERT F JNT L/S 2 [facility] Start: 08-10-2022 Injection of spinal epidural space [facility] Work Phone: Start: 08-10-2022 X-ray of lumbar spine, two or three views Lumbar Spine 2 or 3 Views [facility] Work Phone: Start: 08-10-2022 Patient discharge [facility] Start: 05-18-2022 Anes dx/ther nerve block/injection prone pos ANESTH N BLOCK/INJ PRONE [facility] Work Phone: Start: 05-18-2022 Njx dx/ther sbst intrlmnr lmbr/sac w/img gdn NJX INTERLAMINAR LMBR/SAC [facility] Work Phone: Start: 05-18-2022 Injection of spinal epidural space [facility] Work Phone: Start: 05-18-2022 Injection using fluoroscopic guidance [facility] Work Phone: Start: 05-18-2022 Patient discharge [facility] Work Phone: Patient Education [facility] Work Phone: Patient referral [facility] Work Phone: Immunizations Immunization Date Immunization Notes Care Provider Fa cili 08-27-2019 influenza, injectabl e, quadrivalent, preservative free [facility] 08-27-2019 influenza, seasonal, injectable Dr. Luci Licona Work Phone: [facility] 11-21-2018 influenza, injectabl e, quadrivalent, preservative free [facility] 11-21-2018 influenza, seasonal, injectable Dr. Luci Licona Work Phone: [facility] 03-01-2015 tetanus and diphther ia toxoids, adsorbed, preservative free, for adult use (2 Lf of tetanus toxoid and 2 Lf of diphtheria toxoid) DR WES KIM MD [facility] Payers Date Payer Category Payer Self-pay [id number] 2023 Medicaid [id number] 2023 Unknown [id number] 1981 Unknown [id number] 2.16.8 [id number] 1981 Unknown [id number] 2.16.8 [id number] 1981 Unknown [id number] 2.16.8 [id number] 1981 Unknown [id number] 2.16.8 [id number] 1981 Unknown [id number] 2.16.8 [id number] 1981 Unknown [id number] 2.16.8 [id number] Medicare MEDICARE PART A B [id number] Unknown [id number] Unknown [id number] 2.16.8 [id number] Unknown [id number] 2.16.8 [id number] Unknown [id number] 2.16.8 [id number] Unknown [id number] 2.16.8 [id number] Social History Date Type Detail Facility Start: 08-05-2018 End: 10-29-2022 Light tobacco smoker (finding) [facility] Sex Assigned At [facility] Start: 11-12-2021 End: 01-15-2024 Tobacco smoking status NHIS Unknown if ever smoked [facility] Start: 11-02-2019 Sober [facility] Start: 08-27-2019 None [facility] Start: 08-27-2019 Alone [facility] Start: 11-02-2019 Chew [facility] Start: 1980 Sex Assigned At Male [facility] Tobacco smoking status Ex-smoker (finding ) [facility] Procedure Code Equipment Code Equipment Origin al Text Equipment Identifier Dates Blood Glucose Te st Strips Start: 08-12-2020 [facility]ets Start: 08-12-[address]ps Start: 08-12-2020 [facility]ets Start: 08-12-2020 See Instructions , Testing blood glucose TID. 1 bottle of 100 strips, # 1 EA, 0 Refill(s), Pharmacy: [facility], 188, cm, 08/10/20 0:05:00 EST, Height, 243.6, kg, 08/10/20 0:05:00 EST, Dosing Weight Start: 08-12-2020 See Instructions , Testing blood glucose TID.1 box, # 1 EA, 0 Refill(s), Pharmacy: [facility], 188, cm, 08/10/20 0:05:00 EST, Height, 243.6, kg, 08/10/20 0:05:00 EST, Dosing Weight Start: 08-12-2020 See Instructions , Testing blood glucose TID. 1 bottle of 100 strips, # 1 EA, 0 Refill(s), Pharmacy: [facility], 188, cm, 08/10/20 0:05:00 EST, Height, 243.6, kg, 08/10/20 0:05:00 EST, Dosing Weight Start: 08-12-2020 See Instructions , Testing blood glucose TID.1 box, # 1 EA, 0 Refill(s), Pharmacy: [facility], 188, cm, 08/10/20 0:05:00 EST, Height, 243.6, kg, 08/10/20 0:05:00 EST, Dosing Weight Start: 08-12-2020 See Instructions , Testing blood glucose TID. 1 bottle of 100 strips, # 1 EA, 0 Refill(s), Pharmacy: [facility], 188, cm, 08/10/20 0:05:00 EST, Height, 243.6, kg, 08/10/20 0:05:00 EST, Dosing Weight Start: 08-12-2020 See Instructions , Testing blood glucose TID.1 box, # 1 EA, 0 Refill(s), Pharmacy: [facility] #30, 188, cm, 08/10/20 0:05:00 EST, Height, 243.6, kg, 08/10/20 0:05:00 EST, Dosing Weight Start: 08-12-2020 See Instructions , Testing blood glucose TID. 1 bottle of 100 strips, # 1 EA, 0 Refill(s), Pharmacy: [facility] #30, 188, cm, 08/10/20 0:05:00 EST, Height, 243.6, kg, 08/10/20 0:05:00 EST, Dosing Weight Start: 08-12-2020 See Instructions , Testing blood glucose TID.1 box, # 1 EA, 0 Refill(s), Pharmacy: [facility] #30, 188, cm, 08/10/20 0:05:00 EST, Height, 243.6, kg, 08/10/20 0:05:00 EST, Dosing Weight Start: 08-12-2020 See Instructions , Testing blood glucose TID. 1 bottle of 100 strips, # 1 EA, 0 Refill(s), Pharmacy: [facility] #30, 188, cm, 08/10/20 0:05:00 EST, Height, 243.6, kg, 08/10/20 0:05:00 EST, Dosing Weight Start: 08-12-2020 See Instructions , Testing blood glucose TID.1 box, # 1 EA, 0 Refill(s), Pharmacy: [facility] #30, 188, cm, 08/10/20 0:05:00 EST, Height, 243.6, kg, 08/10/20 0:05:00 EST, Dosing Weight Start: 08-12-2020 See Instructions , Testing blood glucose TID. 1 bottle of 100 strips, # 1 EA, 0 Refill(s), Pharmacy: [facility] #30, 188, cm, 08/10/20 0:05:00 EST, Height, 243.6, kg, 08/10/20 0:05:00 EST, Dosing Weight Start: 08-12-2020 See Instructions , Testing blood glucose TID.1 box, # 1 EA, 0 Refill(s), Pharmacy: [facility] #30, 188, cm, 08/10/20 0:05:00 EST, Height, 243.6, kg, 08/10/20 0:05:00 EST, Dosing Weight Start: 08-12-2020 See Instructions , Testing blood glucose TID. 1 bottle of 100 strips, # 1 EA, 0 Refill(s), Pharmacy: [facility] #30, 188, cm, 08/10/20 0:05:00 EST, Height, 243.6, kg, 08/10/20 0:05:00 EST, Dosing Weight Start: 08-12-2020 See Instructions , Testing blood glucose TID.1 box, # 1 EA, 0 Refill(s), Pharmacy: [facility] #30, 188, cm, 08/10/20 0:05:00 EST, Height, 243.6, kg, 08/10/20 0:05:00 EST, Dosing Weight Start: 08-12-2020 See Instructions , Testing blood glucose TID. 1 bottle of 100 strips, # 1 EA, 0 Refill(s), Pharmacy: [facility] #30, 188, cm, 08/10/20 0:05:00 EST, Height, 243.6, kg, 08/10/20 0:05:00 EST, Dosing Weight Start: 08-12-2020 See Instructions , Testing blood glucose TID.1 box, # 1 EA, 0 Refill(s), Pharmacy: [facility] #30, 188, cm, 08/10/20 0:05:00 EST, Height, 243.6, kg, 08/10/20 0:05:00 EST, Dosing Weight Start: 08-12-2020 Goals Date Patient Goal Desired Activity /State Functional Status Date Assessment Result Facility 01-27-2024 Functional Status Independent [facility] 01-26-2024 Functional Status Standard Safet y ID band on, Call device within reach, Bed in low position, Wheels locked, Upper/Half-Length side-rails up, personal items within reach, Bedside Cart Locked [facility] 11-21-2023 Functional Status Independent [facility] 11-21-2023 Functional Status Standard Safet y ID band on, Call device within reach, Bed in low position, Wheels locked, Upper/Half-Length side-rails up, Phone within reach, Safety level maintained [facility] 08-28-2023 [facility] Functional Status Assistive Device None [facility] 02-06-2023 Functional Status Resting [facility] 02-03-2023 Functional Status Up ad [facility] 11-29-2022 Functional Status Independent [facility] 11-29-2022 Functional Status Standard Safet y ID band on, Call device within reach, Bed in low position, Wheels locked, Safety level maintained [facility] 01-11-2022 [facility] Mental Status Date Assessment Result Facility 01-27-2024 Mental Status Orientation Oriented x 4 [facility] 01-26-2024 Mental Status [facility] 11-21-2023 Mental Status Orientation Oriented x 4 [facility] 11-21-2023 Mental Status [facility] 08-28-2023 Mental Status Orientation Oriented x 4 [facility] 06-11-2023 Mental Status Oriented x 4 [facility] 02-06-2023 Mental Status Orientation Oriented x 4 [facility] 02-03-2023 Mental Status Oriented x 4 [facility] 11-29-2022 Mental Status Orientation Oriented x 4 [facility] 08-10-2022 Cognitive function Voice/Name [facility] Work Phone: 05-18-2022 Cognitive function Voice/Name [facility] Work Phone: 01-11-2022 Mental Status [facility] tSuart Jimenez 01-11-2022 Mental Status [facility] [place] Clinical Notes 07-19-2021 to 01-27-2024 Note Date & Type Note Facility 01-27-2024 Hospital Discharg e instructions Patient Education 01/27/2024 00:51:20 Shortness of Breath (Dyspnea) Shortness of Breath (Dyspnea) Shortness of breath is the feeling that you can't catch your breath or get enough air. It is also known as dyspnea. Dyspnea can be caused by many different conditions. They include: Acute asthma attack Worsening of chronic lung diseases such as chronic bronchitis and emphysema Heart failure. This is when weak heart muscle allows extra fluid to collect in the lungs. Panic attacks or anxiety. Fear can cause rapid breathing (hyperventilation). Pneumonia, or an infection in the lung tissue Exposure to toxic substances, fumes, smoke, or certain medicines Blood clot in the lung (pulmonary embolism). This is often from a piece of blood clot in a deep vein of the leg (deep vein thrombosis) that breaks off and travels to the lungs. Heart attack or heart-related chest pain (angina) Anemia Collapsed lung (pneumothorax) Dehydration Based on your visit today, the exact cause of your shortness of breath is not certain. Your tests don t show any of the serious causes of dyspnea. You may need other tests to find out if you have a serious problem. It s important to watch for any new symptoms or symptoms that get worse. Follow up with your healthcare provider as directed. Home care Follow these tips to take care of yourself at home: When your symptoms are better, go back to your usual activities. If you smoke, you should stop. Join a quit-smoking program or ask your healthcare provider for help. Eat a healthy diet and get plenty of sleep. Get regular exercise. Talk with your healthcare provider before starting to exercise, especially if you have other medical problems. Cut down on the amount of caffeine and stimulants you consume. Follow-up care Follow up with your healthcare provider, or as advised. If tests were done, you will be told if your treatment needs to be changed. You can call as directed for the results. If an X-ray was taken, a specialist will review it. You will be notified of any new findings that may affect your care. Call 911 Shortness of breath may be a sign of a serious medical problem. For example, it may be a problem with your heart or lungs. Call 911 if you have worsening shortness of breath or trouble breathing, especially with any of the symptoms below: Confusion or difficulty waking Fainting or loss of consciousness. Fast or irregular heartbeat Coughing up blood Pain in your chest, arm, shoulder, neck, or upper back Sweating When to seek medical advice Call your healthcare provider right away if any of these occur: Slight shortness of breath or wheezing Redness, pain or swelling in your leg, arm, or other body area Swelling in both legs or ankles Fast weight gain Dizziness or weakness Fever of 100.4 F (38 C) or higher, or as directed by your healthcare provider [id number] [employer]. [address] [place] [address]. All rights reserved. This information is not intended as a substitute for professional medical care. Always follow your healthcare professional's instructions. 01/27/2024 00:51:13 Back Pain (Acute or Chronic) Back Pain (Acute or Chronic) Back pain is one of the most common problems. The good news is that most people feel better in 1 to 2 weeks, and most of the rest in 1 to 2 months. Most people can remain active. People who have pain describe it differently not everyone is the same. The pain can be sharp, stabbing, shooting, aching, cramping or burning. Movement, standing, bending, lifting, sitting, or walking may worsen pain. It can be localized to one spot or area, or it can be more generalized. It can spread or radiate upwards, to the front, or go down your arms or legs (sciatica). It can cause muscle spasm. Most of the time, mechanical problems with the muscles or spine cause the pain. Mechanical problems are usually caused by an injury to the muscles or ligaments. While illness can cause back pain, it is usually not caused by a serious illness. Mechanical problems include: Physical activity such as sports, exercise, work, or normal activity Overexertion, lifting, pushing, pulling incorrectly or too aggressively Sudden twisting, bending, or stretching from an accident, or accidental movement Poor posture Stretching or moving wrong, without noticing pain at the time Poor coordination, lack of regular exercise (check with your doctor about this) Spinal disc disease or arthritis Stress Pain can also be related to , or illness like appendicitis, bladder or kidney infections, pelvic infections, and many other things. Acute back pain usually gets better in 1 to 2 weeks. Back pain related to disk disease, arthritis in the spinal joints or spinal stenosis (narrowing of the spinal canal) can become chronic and last for months or years. Unless you had a physical injury (for example, a car accident or fall) X-rays are usually not needed for the initial evaluation of back pain. If pain continues and does not respond to medical treatment, X-rays and other tests may be needed. Home care Try these home care recommendations: When in bed, try to find a [...] Don't sit for long periods, as in a long car ride or during other travel. This puts more stress on the lower back than standing or walking. During the first 24 to 72 hours after an acute injury or flare up of chronic back pain, apply an ice pack to the painful area for 20 minutes and then remove it for 20 minutes. Do this over a period of 60 to 90 minutes or several times a day. This will reduce swelling and pain. Wrap the ice pack in a thin towel or plastic to protect your skin. You can start with ice, then switch to heat. Heat (hot shower, hot bath, or heating pad) reduces pain and works well for muscle spasms. Heat can be applied to the painful area for 20 minutes then remove it for 20 minutes. Do this over a period of 60 to 90 minutes or several times a day. Do not sleep on a heating pad. It can lead to skin gentile or tissue damage. You can alternate ice and heat therapy. Talk with your doctor about the best treatment for your back pain. Therapeutic massage can help relax the back muscles without stretching them. Be aware of safe lifting methods and do not lift anything without stretching first. Medicines Talk to your doctor before using medicine, especially if you have other medical problems or are taking other medicines. You may use [id number] medicine as directed on the bottle to control pain, unless another pain medicine was prescribed. If you have chronic conditions like diabetes, liver or kidney disease, stomach ulcers, or gastrointestinal bleeding, or are taking blood thinners, talk to your doctor before taking any medicine. Be careful if you are given a prescription medicines, narcotics, or medicine for muscle spasms. They can cause drowsiness, affect your coordination, reflexes, and judgement. Do not drive or operate heavy machinery. Follow-up care Follow up with your healthcare provider, or as advised. A radiologist will review any X-rays that were taken. Your provide will notify you of any new findings that may affect [...] these occur: Pain becomes worse or spreads to your legs Weakness or numbness in one or both legs Numbness in the groin or genital area [id number] [employer]. [address] [place] [address]. All rights reserved. This information is not intended as a substitute for professional medical care. Always follow your healthcare professional's instructions. Follow Up Care 01/26/2024 23:25:41 With:LUCI LICONA DO Address: [address] [place] [id number]- When:2-4 days Comments:Return to ED if symptoms worsen [facility] 01-27-2024 Note Discharge Instructions Thank you for allowing [facility] to assist you with your healthcare needs. The following is important discharge information regarding your hospital visit. Diagnosis from Today's Visit Back pain, chronic lower back pain Chronic back pain Shortness of breath SOB - Shortness of breath What to Do Next Instructions from Your Care Team No qualifying data available. Post Acute Orders No qualifying data available. You Need to Schedule the Following Appointments Follow Up with LUCI LICONA DO When Within 2-4 days Why: Return to ED if symptoms worsen Where: [address] [place] [address] [place] [address]- Allergies NKA Medications Please ask your primary doctor or pharmacist before taking any other medication not listed, including over the counter drugs, herbal medications, vitamins and or supplements as they may interact with your home medications. What How Much When Why Instructions Last Dose Unchanged acetaminophen-hydrocodone ([place] 325- 5 mg oral tablet) 1 tab(s) [...] medication providers or retail pharmacies. Education Materials Shortness of Breath (Dyspnea) Shortness of breath is the feeling that you can't catch your breath or get enough air. It is also known as dyspnea. Dyspnea can be caused by many different conditions. They include: Acute asthma attack Worsening of chronic lung diseases such as chronic bronchitis and emphysema Heart failure. This is when weak heart muscle allows extra fluid to collect in the lungs. Panic attacks or anxiety. Fear can cause rapid breathing (hyperventilation). Pneumonia, or an infection in the lung tissue Exposure to toxic substances, fumes, smoke, or certain medicines Blood clot in the lung (pulmonary embolism). This is often from a piece of blood clot in a deep vein of the leg (deep vein thrombosis) that breaks off and travels to the lungs. Heart attack or heart-related chest pain (angina) Anemia Collapsed lung (pneumothorax) Dehydration Based on your visit today, the exact cause of your shortness of breath is not certain. Your tests don t show any of the serious causes of dyspnea. You may need other tests to find out if you have a serious problem. It s important to watch for any new symptoms or symptoms that get worse. Follow up with your healthcare provider as directed. Home care Follow these tips to take care of yourself at home: When your symptoms are better, go back to your usual activities. If you smoke, you should stop. Join a quit-smoking program or ask your healthcare provider for help. Eat a healthy diet and get plenty of sleep. Get regular exercise. Talk with your healthcare provider before starting to exercise, especially if you have other medical problems. Cut down on the amount of caffeine and stimulants you consume. Follow-up care Follow up with your healthcare provider, or as advised. If tests were done, you will be told if your treatment needs to be changed. You can call as directed for the results. If an X-ray was taken, a specialist will review it. You will be notified of any new findings that may affect your care. Call 911 Shortness of breath may be a sign of a serious medical problem. For example, it may be a problem with your heart or lungs. Call 911 if you have worsening shortness of breath or trouble breathing, especially with any of the symptoms below: Confusion or difficulty waking Fainting or loss of consciousness. Fast or irregular heartbeat Coughing up blood Pain in your chest, arm, shoulder, neck, or upper back Sweating When to seek medical advice Call your healthcare provider right away if any of these occur: Slight shortness of breath or wheezing Redness, pain or swelling in your leg, arm, or other body area Swelling in both legs or ankles Fast weight gain Dizziness or weakness Fever of 100.4 F (38 C) or higher, or as directed by your healthcare provider [id number] [employer]. [address] [place] [address], [place] [address]. All rights reserved. This information is not intended as a substitute for professional medical care. Always follow your healthcare professional's instructions. Back Pain (Acute or Chronic) Back pain is one of the most common problems. The good news is that most people feel better in 1 to 2 weeks, and most of the rest in 1 to 2 months. Most people can remain active. People who have pain describe it differently not everyone is the same. The pain can be sharp, stabbing, shooting, aching, cramping or burning. Movement, standing, bending, lifting, sitting, or walking may worsen pain. It can be localized to one spot or area, or it can be more generalized. It can spread or radiate upwards, to the front, or go down your arms or legs (sciatica). It can cause muscle spasm. Most of the time, mechanical problems with the muscles or spine cause the pain. Mechanical problems are usually caused by an injury to the muscles or ligaments. While illness can cause back pain, it is usually not caused by a serious illness. Mechanical problems include: Physical activity such as sports, exercise, work, or normal activity Overexertion, lifting, pushing, pulling incorrectly or too aggressively Sudden twisting, bending, or stretching from an accident, or accidental movement Poor posture Stretching or moving wrong, without noticing pain at the time Poor coordination, lack of regular exercise (check with your doctor about this) Spinal disc disease or arthritis Stress Pain can also be related to , or illness like appendicitis, bladder or kidney infections, pelvic infections, and many other things. Acute back pain usually gets better in 1 to 2 weeks. Back pain related to disk disease, arthritis in the spinal joints or spinal stenosis (narrowing of the spinal canal) can become chronic and last for months or years. Unless you had a physical injury (for example, a car accident or fall) X-rays are usually not needed for the initial evaluation of back pain. If pain continues and does not respond to medical treatment, X-rays and other tests may be needed. Home care Try these home care recommendations: When in bed, try to find a [...] Don't sit for long periods, as in a long car ride or during other travel. This puts more stress on the lower back than standing or walking. During the first 24 to 72 hours after an acute injury or flare up of chronic back pain, apply an ice pack to the painful area for 20 minutes and then remove it for 20 minutes. Do this over a period of 60 to 90 minutes or several times a day. This will reduce swelling and pain. Wrap the ice pack in a thin towel or plastic to protect your skin. You can start with ice, then switch to heat. Heat (hot shower, hot bath, or heating pad) reduces pain and works well for muscle spasms. Heat can be applied to the painful area for 20 minutes then remove it for 20 minutes. Do this over a period of 60 to 90 minutes or several times a day. Do not sleep on a heating pad. It can lead to skin gentile or tissue damage. You can alternate ice and heat therapy. Talk with your doctor about the best treatment for your back pain. Therapeutic massage can help relax the back muscles without stretching them. Be aware of safe lifting methods and do not lift anything without stretching first. Medicines Talk to your doctor before using medicine, especially if you have other medical problems or are taking other medicines. You may use czyg-iez-[id number] medicine as directed on the bottle to control pain, unless another pain medicine was prescribed. If you have chronic conditions like diabetes, liver or kidney disease, stomach ulcers, or gastrointestinal bleeding, or are taking blood thinners, talk to your doctor before taking any medicine. Be careful if you are given a prescription medicines, narcotics, or medicine for muscle spasms. They can cause drowsiness, affect your coordination, reflexes, and judgement. Do not drive or operate heavy machinery. Follow-up care Follow up with your healthcare provider, or as advised. A radiologist will review any X-rays that were taken. Your provide will notify you of any new findings that may affect [...] these occur: Pain becomes worse or spreads to your legs Weakness or numbness in one or both legs Numbness in the groin or genital area [id number] [employer]. [address] [place] [address], [place] [address]. All rights reserved. This information is not intended as a substitute for professional medical care. Always follow your healthcare professional's instructions. Additional Information VACCINATE! IT SAVES LIVES! Members of the community who have not yet received the COVID-19 vaccine and would like to receive it can visit one of [facility] vaccine clinics. There are many vaccine clinic locations within the [facility]. For locations and available times, please visit [email or web address] [email or web address] It is important to note that some COVID mobile vaccine clinics are held outdoors and may be canceled in rainy or stormy conditions. To learn more about pediatric vaccinations (ages 5-11), we invite you to visit the [facility] webpage. https://[email or web address].org/p ages/4555-Bqxcg-Bpxhzizekxq-Freq kcpalb-Lilhd-Ilredrvbg.html To learn more about the COVID-19 vaccine, we invite you to visit the CDC website for a list of frequently asked questions. https://www.cdc.gov/coronavirus/ 2019-ncov/vaccines/faq.html [facility] Patient Portal Access Instructions: Stay connected with your healthcare team and access your personal medical information anytime with the [facility] Patient Portal. If you would like a full copy of your medical records please contact the [facility] Medical Records Department Wednesday through Wednesday between 8a.m. and 4:30p.m. Please follow the directions below to access the portal: 1.Access the email account you provided upon registration to the [facility].2.Look for an invitation email from [facility].3.Open the email and access the invitation link: Accept Invitation to [facility]4.Fill in the required fabian to create your account. Sign into [email or web address] with your username and password that you [...] you will allow to register on the [facility] Patient Portal for access to your information. You can also access the [facility] Patient Portal on the [employer]. Simply click on "Health Records" under "Health Data" and then click on the [employer] logo. HOW TO SAFELY DISPOSE OF PRESCRIPTION [...] Call your local pharmacy or go to http://Friend.ly.proteonomix/3V6Zo1i to find one close to you.3.Make use of household items: Use cat litter or old coffee grounds to dispose medications if other options are not available. Mix your drugs with these household products, seal them in an airtight container and throw it into the garbage. Call [facility]: [phone] to be sure your drugs can be [...] a CHART COPY Signatures Patient Education Materials Shortness of Breath (Dyspnea) Back Pain (Acute or Chronic) Medication Leaflets My discharge plan and instructions have been reviewed and explained to me and I,REYNALDO SALINAS SASHA Barton understand my current condition and have read and understand these discharge instructions. I have received a written copy of the plan/instructions. If I have questions, I am aware that I should contact my doctor. Patient/Outgoing Inspector Signature: Date/Time: Relationship to Patient: Witness Name/Signature: Date/Time: [facility] 01-27-2024 Note ORIGINAL EXAMINATION: TWO XRAY VIEWS OF THE CHEST 01/27/2024 12:25 am COMPARISON: None. HISTORY: ORDERING SYSTEM PROVIDED HISTORY: Reason for Exam: Shortness of breath onset one week. SOB/Cough/Fever FINDINGS: Interstitial and alveolar haziness throughout the lungs bilaterally. No pneumothorax. No large effusion. Mild hazy airspace disease is greatest at the lung bases. Heart size is normal. IMPRESSION: Mild hazy airspace disease bilaterally greatest at the lung bases. Findings could represent atelectasis versus developing infiltrate. Interpreted by: Michael Ledezma MD Preliminary Report By: Michael Ledezma MD Electronically signed By Michael Ledezma MD Dictated Date: 01/27/2024 12:30:33 AM Prelim Date: 01/27/2024 12:31:12 AM Sign Date: 01/27/2024 12:31:12 AM Ordering Provider: WES KIM [facility] 01-26-2024 Note Sinus rhythm IVCD, consider atypical RBBB Minimal ST elevation, lateral leads Electronic Signature: MD WES KIM MD 01/26/2024 23:56:00 [facility] 01-15-2024 Discharge summary Note Date/Time January 15, 2024 5:10pm [facility] Medical Records Department [address] [place] [address] Emergency Department Summary 01/15/24 MR#: [id number] Acct: [id number] Name: SASHA JACOBS II Rep #:[id number] 44 From: Radhames Gan [employer] PCP: Dr. Luci Licona, DO Status:REG ER Location: ED <Statement entered by Thu Malhotra MD - 01/15/24 19:27> I have personally performed a face to face assessment of the patient and have reviewed the ADELA Note. Patient present secondary to acute on chronic back pain. He is currently on gabapentin and oxycodone at home regularly for chronic back pain. 2 or 3 days ago he caught his toe on a step and fell forward twisting his back. He has had problems with intermittent spasms since that time. He states today he was walking in his yard when he had worsened pain and spasm. He has not been able to get comfortable. Patient lying supine in the bed. He appears uncomfortable but in no distress. Head and neck examination unremarkable. Heart is regular rate and rhythm. Lung sounds are clear. Abdomen is soft, obese, nontender. Patient has good strength and sensation in the extremities. Patient given IM Dilaudid and Norflex. After second dose of Dilaudid patient isresting comfortably and feels much improved. He will be discharged home to continue his chronic pain medications. Return instructions provided. HPI History of Present Illness Chief Complaint: Back Narrative Narrative: Patient is a 44-year-old male with history of chronic back pain, chronic respiratory failure with hypoxia on 3 L nasal cannula, morbid obesity, psoriasiswho presents to the emergency department 3 days of lower back pain. Patient states he tripped going up the steps, bracing himself he denies any falling or traumatic process to his back. He states that he felt that he emi his back muscles. He states over the last 2 to 3 days the pain is beginning much worse. He is having difficulty walking. He denies any bowel or bladder continence, denies any fever chills nausea or vomiting. [facility] Medical History Ambulates with cane Asthma Back pain Chewing tobacco use Chronic acquired lymphedema COPD (chronic obstructive pulmonary disease) Degeneration of intervertebral disc of lumbosacral region Depression Diabetes Fatty liver HTN (hypertension) Loose, teeth Morbid obesity On home oxygen therapy ANTONIO (obstructive sleep apnea) Psoriasis Radiculopathy of lumbosacral region Restless legs Seizures Tobacco dependence syndrome Home Medications cyclobenzaprine 10 mg tablet 10 mg PO TID muscle relaxer 08/07/16 [History Last Taken 05/17/22] gabapentin 600 mg tablet 600 mg PO TIDCM neuropathy 08/07/16 [History Last Taken 05/17/22] oxycodone 5 mg tablet 15 mg PO TID PRN Pain 08/07/16 [History Last Taken 05/17/22] duloxetine 20 mg capsule,delayed release (Cymbalta) 20 mg PO DAILY depression 12/29/17 [History Last Taken 05/17/22] furosemide 40 mg tablet 80 mg PO DAILY water pill 12/29/17 [History Last Taken 05/17/22] metoprolol succinate 25 mg tablet,extended release 24 hr 25 mg PO BID heart 12/29/17 [History Last Taken 05/17/22] dicyclomine 10 mg capsule 20 mg PO TIDAC Pain 08/27/19 [History Last Taken 05/17/22] albuterol sulfate 2.5 mg/3 mL (0.083 %) solution for nebulization 2.5 mg (3 mL) inhalation Q4H PRN Sob &/Or Wheezing #180 mL 01/09/20 [Rx Last Taken 05/17/22] albuterol sulfate 90 mcg/actuation breath activated powder inhaler (ProAir RespiClick) 2 inh inhalation Q4H PRN shortness of breath or wheezing #1 ea 01/09/20 [Rx Last Taken 05/17/22] metformin 500 mg tablet,extended release 24 hr 500 mg PO BID 08/07/20 [History Last Taken 05/17/22] montelukast 10 mg tablet 10 mg PO QPM #30 tabs 05/09/21 [Rx Last Taken 05/17/22] tiotropium bromide 2.5 mcg/actuation mist for inhalation (Spiriva Respimat) 2 puff inhalation QHS #4 grams 11/12/21 [Rx Last Taken 05/17/22] Symbicort 160 mcg-4.5 mcg/actuation HFA aerosol inhaler (budesonide-formoterol) 2 puff inhalation BID #10.2 grams 11/13/21 [Rx Last Taken 05/17/22] cetirizine 10 mg capsule (Zyrtec) 10 mg PO HS 05/13/22 [History Last Taken 05/17/22] loperamide 2 mg capsule (Imodium A-D) 4 mg PO Q4H PRN PRN Diarrhea 05/13/22 [History Last Taken 05/17/22] clindamycin HCl 300 mg capsule 300 mg PO 4X/DAY 10 days #40 caps 12/04/22 [Rx Last Taken Unknown] clindamycin HCl 300 mg capsule (Cleocin HCl) 300 mg PO 4X/DAY 10 days #40 CAPSULES 12/04/22 [Rx Last Taken Unknown] clindamycin HCl 300 mg capsule 300 mg PO Q8H 10 days #30 caps 11/27/23 [Rx Last Taken Unknown] metaxalone 400 mg tablet 800 mg (2 x 400 mg) PO TID PRN muscle pain #20 tabs 01/15/24 [Rx Last Taken Unknown] Allergy/AdvReac Type Severity Reaction Status Date / Time No Known Allergies Allergy Verified 01/15/24 16:56 Family History Mother Diabetes Father Diabetes Heart disease Surgical History History of back surgery Social History household members: none Smoking Status: Former smoker Smokeless tobacco user: chewing tobacco alcohol intake: former substance use type: does not use ROS ROS ED ROS Narrative Constitutional: Negative for fever, chills, weight loss, weakness Eyes: Negative for vision loss, vision change, double vision ENT: Negative for any sore throat, ear pain, congestion Cardiovascular: Negative for any chest pain, tightness, palpitations Respiratory: Negative for any cough, sputum production, hemoptysis, dyspnea, dyspnea on exertion, orthopnea Gastrointestinal: Negative for any abdominal pain, nausea, vomiting, diarrhea, constipation, blood in stool, blood in vomit : Negative for any urinary frequency, dysuria, retention, blood in urine Muscle skeletal: Negative for any neck pain. Positive for lower back pain Neurological: Negative for any headache, syncope, dizziness Skin: Negative for any rashes, itching, abrasions, lacerations Psychiatric: Negative for any depression, anxiety, stress, suicidal ideation, homicidal ideation Hematologic: Negative for any excessive bruising, easy bleeding EXAM Physical Exam Narrative Exam Narrative: Vital signs reviewed. Patient is difficult to assess secondary to the size of the patient. Patient's pain with any sort of movement to his lower extremities. HEET: Head normocephalic atraumatic, TMs clear bilaterally. Posterior pharynx is clear, moist mucous membranes. Nares clear bilaterally. Neck: Supple with no lymphadenopathy or tenderness. No signs of meningismus. Cardiac: Regular rate and rhythm no murmurs gallops or rubs, equal peripheral pulses bilaterally. Respiratory: Lungs clear to auscultation bilaterally. No chest tenderness. Abdomen: Soft, nontender, nondistended. No abdominal bruit or pulsatile masses. No hepatosplenomegaly Extremities: No peripheral edema, no signs of gross trauma or deformity. Activefull range of motion of all extremities. Equal strength bilateral lower extremities. Neuro: Cranial nerves II through XII intact, no focal neurological deficits. Skin: Clean dry and intact with no rash, purpura, petechiae, vesicles or pustules. Backs/flank: No CVA tenderness, no midline spinal tenderness, no deformity. Psych: Normal mood and affect. No SI, HI or acute psychosis. Const Vital Signs: 01/15/24 16:54 Temperature 96 F L Temperature Source Temporal Pulse Rate 71 Respiratory Rate 24 H Blood Pressure 145/92 H Blood Pressure Mean 109 Pulse Ox 92 Oxygen Delivery Method Nasal Cannula Oxygen Flow Rate (L/min) 2 MDM [facility] Treatment and Re-Evaluation :: Differential diagnosis includes however is not limited to: Lumbar strain, acute on chronic back pain, lumbar fracture, pathological fracture Patient appears to be in mild distress secondary to pain to his lower back. Patient states he has had pain like this, has been dealing with this for greaterthan 6 or 7 years. He does take Percocet as well as gabapentin daily. Patient has equal strength of bilateral lower extremities. Patient is difficult to assess secondary to the size of the patient. However patient had no trauma or contusion. Patient be treated for pain with IM Dilaudid, 60 mg IM Norflex. Insert radiology On reevaluation, the patient states the pain was from a 10 to a 9, patient is requesting more pain medicine. On reevaluation, the patient was sleeping, but woke the patient up. The patientis feeling better. He is moving his lower extremities better. He will continuetaking his Percocet, gabapentin at home, I will write the patient for Skelaxin for muscle spasm. He instructed perform gentle stretching, ice and heat, at this time, he has no red flag signs, patient stable for discharge. Strict return for any worsening symptoms Discharge Plan Triage Chief Complaint: Back ED Midlevel Provider: Radhames Gan ED Provider: Thu Malhotra Dx/Rx/DC Orders Clinical Impression: Acute exacerbation of chronic low back pain Instructions: How Your Back Works, Lumbar Rotation, ED Back and Neck Pain, General Prescriptions: New metaxalone 400 mg tablet 800 mg PO TID PRN (Reason: muscle pain) Qty: 20 0RF No Action ProAir RespiClick 90 mcg/actuation aerosol powdr breath activated 2 inh INHALATION Q4H PRN (Reason: shortness of breath or wheezing) Qty: 1 6RF Rx Instructions: administer with spacer albuterol sulfate 2.5 mg /3 mL (0.083 %) solution for nebulization 2.5 mg INHALATION Q4H PRN (Reason: Sob &/Or Wheezing) Qty: 180 3RF budesonide-formoterol [Symbicort] 160-4.5 mcg/actuation HFA aerosol inhaler 2 puff INHALATION BID Qty: 10.2 3RF cyclobenzaprine 10 MG tablet 10 mg PO TID gabapentin 600 MG tablet 600 mg PO TIDCM oxycodone 5 MG tablet 15 mg PO TID PRN (Reason: Pain) furosemide 40 MG tablet 80 mg PO DAILY metoprolol succinate 25 MG tablet extended release 24 hr 25 mg PO BID duloxetine [Cymbalta] 20 MG capsule 20 mg PO DAILY dicyclomine 10 MG capsule 20 mg PO TIDAC metformin 500 MG tablet 500 mg PO BID loperamide [Imodium A-D] 2 MG capsule 4 mg PO Q4H PRN PRN (Reason: Diarrhea) Zyrtec 10 mg capsule 10 mg PO HS clindamycin HCl 300 mg capsule 300 mg PO 4X/DAY 10 Days Qty: 40 0RF clindamycin HCl [Cleocin HCl] 300 mg capsule 300 mg PO 4X/DAY 10 Days Qty: 40 0RF clindamycin HCl 300 mg capsule 300 mg PO Q8H 10 Days Qty: 30 0RF montelukast 10 mg tablet 10 mg PO QPM Qty: 30 3RF Spiriva Respimat 2.5 mcg/actuation mist 2 puff INHALATION QHS Qty: 4 3RF Primary Care Provider: Luci Licona Referrals: Luci Licona, [Primary Care Provider] - Disposition Disposition: Home, Self Care What to do if you have Problems For any increased pain, shortness of breath, bleeding, nausea or vomiting, chestpain, or any unexpected problems, contact your Primary Care Provider. Call [facility] ([phone]) or report to the closest Emergency Room. Call 911 if necessary. 01/15/241910 <Electronically signed by Radhames RIDER> Cosigner Signature (if applicable): 01/15/241926 <Electronically signed by Thu Malhotra MD> CC: Dr. Luic Licona DO ~ Signed [facility] Work Phone: 1(432) 600-529002-24-2024 Discharge summary Author Angel Grande [facility] November 27, 2023 8:53pm Note Date/Time November 27, 2023 7:03pm [facility] Medical Records Department [address] [place] [id number] Emergency Department Summary 11/27/23 MR#: [id number] Acct: [id number] Name: SASHA JACOBS II Rep #:[id number] : 1980 43 From: Angel Grande MD PCP: Dr. Luci Licona DO Status:REG ER Location: ED HPI History of Present Illness Chief Complaint: Cellulitis Informant: patient Onset/Context/Timing Onset: Weeks Context: Gradual Onset Timing: Continuous Current Severity: Moderate Maximum Severity: Moderate Narrative Narrative: 43-year-old male history of chronic respiratory failure on 2 L of oxygen, COPD, diabetes, severe psoriasis and morbid obesity. Patient's had prior cellulitis on his lower extremities. He has developed a sore in his left lower leg in the last 3 to 4 weeks. He has been on doxycycline twice a day for the last 2 weeks that he said only getting worse. He sayings having discomfort in his left leg gets more red. He denies any fever or chills. He has never had a blood clot hehas been worked up for those before. Prior similar symptoms: Yes Recent Illness/Hospitalization: No PFSH PFSH Medical History Ambulates with cane Asthma Back pain Chewing tobacco use Chronic acquired lymphedema COPD (chronic obstructive pulmonary disease) Degeneration of intervertebral disc of lumbosacral region Depression Diabetes Fatty liver HTN (hypertension) Loose, teeth Morbid obesity On home oxygen therapy ANTONIO (obstructive sleep apnea) Psoriasis Radiculopathy of lumbosacral region Restless legs Seizures Tobacco dependence syndrome Home Medications cyclobenzaprine 10 mg tablet 10 mg PO TID muscle relaxer 08/07/16 [History Last Taken 05/17/22] gabapentin 600 mg tablet 600 mg PO TIDCM neuropathy 08/07/16 [History Last Taken 05/17/22] oxycodone 5 mg tablet 15 mg PO TID PRN Pain 08/07/16 [History Last Taken 05/17/22] duloxetine 20 mg capsule,delayed release (Cymbalta) 20 mg PO DAILY depression 12/29/17 [History Last Taken 05/17/22] furosemide 40 mg tablet 80 mg PO DAILY water pill 12/29/17 [History Last Taken 05/17/22] metoprolol succinate 25 mg tablet,extended release 24 hr 25 mg PO BID heart 12/29/17 [History Last Taken 05/17/22] dicyclomine 10 mg capsule 20 mg PO TIDAC Pain 08/27/19 [History Last Taken 05/17/22] albuterol sulfate 2.5 mg/3 mL (0.083 %) solution for nebulization 2.5 mg (3 mL) inhalation Q4H PRN Sob &/Or Wheezing #180 mL 01/09/20 [Rx Last Taken 05/17/22] albuterol sulfate 90 mcg/actuation breath activated powder inhaler (ProAir RespiClick) 2 inh inhalation Q4H PRN shortness of breath or wheezing #1 ea 01/09/20 [Rx Last Taken 05/17/22] metformin 500 mg tablet,extended release 24 hr 500 mg PO BID 08/07/20 [History Last Taken 05/17/22] montelukast 10 mg tablet 10 mg PO QPM #30 tabs 05/09/21 [Rx Last Taken 05/17/22] tiotropium bromide 2.5 mcg/actuation mist for inhalation (Spiriva Respimat) 2 puff inhalation QHS #4 grams 11/12/21 [Rx Last Taken 05/17/22] Symbicort 160 mcg-4.5 mcg/actuation HFA aerosol inhaler (budesonide-formoterol) 2 puff inhalation BID #10.2 grams 11/13/21 [Rx Last Taken 05/17/22] cetirizine 10 mg capsule (Zyrtec) 10 mg PO HS 05/13/22 [History Last Taken 05/17/22] loperamide 2 mg capsule (Imodium A-D) 4 mg PO Q4H PRN PRN Diarrhea 05/13/22 [History Last Taken 05/17/22] clindamycin HCl 300 mg capsule 300 mg PO 4X/DAY 10 days #40 caps 12/04/22 [Rx Last Taken Unknown] clindamycin HCl 300 mg capsule (Cleocin HCl) 300 mg PO 4X/DAY 10 days #40 CAPSULES 12/04/22 [Rx Last Taken Unknown] clindamycin HCl 300 mg capsule 300 mg PO Q8H 10 days #30 caps 11/27/23 [Rx Last Taken Unknown] Allergy/AdvReac Type Severity Reaction Status Date / Time No Known Allergies Allergy Verified 11/27/23 18:42 Family History Mother Diabetes Father Diabetes Heart disease Surgical History History of back surgery Social History household members: none Smoking Status: Former smoker Smokeless tobacco user: chewing tobacco alcohol intake: former substance use type: does not use ROS ROS ED ROS Narrative Denies recent illness. Worsening redness left lower leg. Review of Systems ROS Unobtainable: Denies due to encephalopathy Constitutional Constitutional ED: Denies chills or fever(s) Eyes Eyes: Denies blurry vision ENT ENT ED: Denies ear pain Cardiovascular Cardiovascular: Denies chest pain Respiratory/Chest Respiratory/Chest: Reports other Details: Chronic respiratory failure on 2 to 4 L of oxygen. ; Denies cough Gastrointestinal Gastrointestinal: Denies abdominal pain, constipation, diarrhea, nausea or vomiting Genitourinary Genitourinary ED: Denies dysuria or hematuria Musculoskeletal Musculoskeletal: Denies arthralgias Integumentary Reports rash; Denies abscess Neurologic Neurologic: Denies headache(s) Psychiatric Psychiatric: Denies anxiety Endocrine Endocrinology: Denies cold intolerance Hematologic/Lymphatic Hematologic/Lymphatic: Reports none Allergic/Immunologic Allergic/Immunologic ED: Denies mouth swelling, tongue swelling or urticaria EXAM Physical Exam Narrative Exam Narrative: 43-year-old male vital signs are stable afebrile. He is morbidly obese and he is on chronic oxygen 3 L. His pulse ox is 96% on room air. He is afebrile and has a temperature 99.1. He does not look septic or toxic. He is in no distress. He is sitting upright in bed. No one else is present in the room. HEENT exam unremarkable. Neck nontender. Lungs clear to auscultation bilaterally. Heart regular rhythm rate about 85 no murmur. Chest wall nontender. Abdomen soft nontender. Moving all 4 extremities. He walked in. He has severe psoriasis on both lower extremities and upper extremities. The left anterior pealyo just below the knee above the ankle he has basically sloughing of the skin with clear fluid discharge. It is warm to the touch it isred. There is no streaks above his knee. There is no left inguinal adenopathy. Dorsi and plantarflexion is intact. Neurologically is awake and alert with no focal motor deficits. Const Vital Signs: 11/27/23 18:42 Temperature 99.1 F Temperature Source Temporal Pulse Rate 85 Respiratory Rate 18 Blood Pressure 159/94 H Blood Pressure Mean 115 Pulse Ox 96 Oxygen Delivery Method Nasal Cannula Oxygen Flow Rate (L/min) 3 Positive well nourished and well developed; Negative for cachectic, contracturesor unkempt General Appearance ED: well developed and NAD; Negative for unkempt, cachectic, contractures, cyanotic, diaphoretic or pallor Nutritional Appearance: Negative for cachectic HEENT Reports moist mucous membranes; Denies dry mucous membranes Negative for trauma or tenderness Mouth ED: No dry mucous membranes Mouth: No dry mucous membranes Eyes PERRL and EOMs intact bilaterally General Eye ED: Negative for pale conjunctiva Neck no lymphadenopathy, supple and no JVD General: Negative for tenderness Lymph Lymphatic: Negative for other Chest Wall inspection of chest normal and palpation of chest normal Resp normal respiratory effort and clear to auscultation bilaterally Effort and Inspection: Negative for retractions Auscultation: Negative for rales, rhonchi or wheezes Cardio regular rate, regular rhythm, S1 normal heart sound, S2 normal heart sound and no murmurs Rate: Negative for bradycardia or tachycardic Rhythm: Negative for abnormal rhythm GI normal to inspection, nondistended, normoactive bowel sounds, non-tender, non-distended and no masses Inspection: Negative for abdominal distention Auscultation: normoactive bowel sounds Palpation: soft; Negative for tender, guarding or rebound tenderness present Back/Spine no CVA tenderness General Back: Negative for CVA tenderness Cervical Spine: Negative for cervical spine tenderness Thoracic Spine / Upper Back: Negative for thoracic spinal tenderness Lumbar Spine / Lower Back: Negative for lumbar spinal tenderness Extremity Negative for normal to inspection Extremity Narrative: Chronic lymphedema both lower extremities. Extremely large legs. Severe psoriasis on both lower extremities. On the left lower extremity there is sloughing of the skin. It is warm to the touch and red it may be secondary to cellulitis and could all be secondary to chronic lymphedema and the psoriasis. There is no lymphangitic streaking or inguinal lymphadenopathy. Dorsi and plantarflexion is intact bilaterally. He is able to ambulate. General Extremety ED: Yes edema and tenderness General Extremity: edema Neuro oriented x3 and CN's II-XII intact bilaterally Sensorium / Orientation: alert; Negative for orientation impaired, lethargic or stuporous Motor Exam: strength 5/5 throughout Psych mental status grossly normal Appearance: Negative for unkempt Attitude: No agitated Mood & Affect: Negative for depressed, anxious or tearful Skin no rashes or lesions noted and no wounds Skin Narrative: Wound left lower leg. Redness. Warm to touch. Tender. Weeping of clear fluid. Severe psoriasis. Severe chronic bilateral lymphedema. General Skin Exam: Negative for jaundice or pallor Lesions: No lesion noted Rashes: rashes noted Trauma: Negative for abrasion Wounds: wounds noted MDM MDM MDM Narrative Medical decision making narrative: 43-year-old male chronic medical history of respiratory failure on chronic oxygen, diabetes and psoriasis. May or may not have cellulitis on his left lower extremity. Discussed severe psoriasis. No wound on his left lower leg anterior pelayo. Screening labs are being obtained. Will be given an IV dose of clindamycin. Repeat exam patient is doing well at 8:45 PM. Reevaluation of his left leg shows no change. It is not worse. It is still red. Still severe psoriasis. It could be a cellulitis it could just be the psoriasis and irritation of the skin. He was given a dose of IV clindamycin here. Will change his antibiotic stop the doxycycline. Give him a prescription for clindamycin. Have him follow-up with his primary care physician. I did discuss with him to talk to his primary care physician to get a referral to the wound care center. Lab Data Attestation: I reviewed the patient's lab results. Lab results narrative: CBC normal white count of 10 H&H 12.5 and 38 which is his baseline. Platelets 257. Electrolytes show a gap of 4. Normal BUN and creatinine. Glucose 125. Labs: Laboratory Results - last 24 hr 11/27/23 19:15 WBC 10.7 RBC 4.30 L Hgb 12.5 L Hct 38.8 L MCV 90.2 MCH 29.1 MCHC 32.2 RDW Std Deviation 46.6 H RDW Coeff of Lizett 14.2 Plt Count 257 MPV 9.2 Immature Gran % (Auto) 0.300 Neut % (Auto) 76.8 H Lymph % (Auto) 14.4 L [place] % (Auto) 5.4 Eos % (Auto) 2.5 Baso % (Auto) 0.6 Absolute Neuts (auto) 8.2 H Absolute Lymphs (auto) 1.53 Nucleated RBC % 0 Sodium 139 Potassium 3.9 Chloride 104 Carbon Dioxide 31.0 Anion Gap 4 L BUN 12 Creatinine 0.75 Estim Creat Clear Calc 270.61 Est GFR (MDRD) Af Amer 146 Est GFR (MDRD) Non-Af 121 BUN/Creatinine Ratio 16.0 Glucose 125 H Calcium 8.9 Discharge Plan Triage Chief Complaint: Cellulitis ED Provider: Angel Grande Dx/Rx/DC Orders Clinical Impression: Family history of chronic respiratory failure, Cellulitis, History of psoriasis, History of diabetes mellitus Instructions: ED Cellulitis Prescriptions: New clindamycin HCl 300 mg capsule 300 mg PO Q8H 10 Days Qty: 30 0RF No Action ProAir RespiClick 90 mcg/actuation aerosol powdr breath activated 2 inh INHALATION Q4H PRN (Reason: shortness of breath or wheezing) Qty: 1 6RF Rx Instructions: administer with spacer albuterol sulfate 2.5 mg /3 mL (0.083 %) solution for nebulization 2.5 mg INHALATION Q4H PRN (Reason: Sob &/Or Wheezing) Qty: 180 3RF budesonide-formoterol [Symbicort] 160-4.5 mcg/actuation HFA aerosol inhaler 2 puff INHALATION BID Qty: 10.2 3RF cyclobenzaprine 10 MG tablet 10 mg PO TID gabapentin 600 MG tablet 600 mg PO TIDCM oxycodone 5 MG tablet 15 mg PO TID PRN (Reason: Pain) furosemide 40 MG tablet 80 mg PO DAILY metoprolol succinate 25 MG tablet extended release 24 hr 25 mg PO BID duloxetine [Cymbalta] 20 MG capsule 20 mg PO DAILY dicyclomine 10 MG capsule 20 mg PO TIDAC metformin 500 MG tablet 500 mg PO BID loperamide [Imodium A-D] 2 MG capsule 4 mg PO Q4H PRN PRN (Reason: Diarrhea) Zyrtec 10 mg capsule 10 mg PO HS clindamycin HCl 300 mg capsule 300 mg PO 4X/DAY 10 Days Qty: 40 0RF clindamycin HCl [Cleocin HCl] 300 mg capsule 300 mg PO 4X/DAY 10 Days Qty: 40 0RF montelukast 10 mg tablet 10 mg PO QPM Qty: 30 3RF Spiriva Respimat 2.5 mcg/actuation mist 2 puff INHALATION QHS Qty: 4 3RF Primary Care Provider: Luci Licona Referrals: Luci Licona DO [Primary Care Provider] - As soon as possible (Follow-up with your primary care physician. Discussed with her getting a referral to the woundcare center.) Wound,Center [Non-Staff] - As soon as possible Activity Restrictions/Additional Instructions: This may or may not be cellulitis. It could also just be irritation of the skinfrom the psoriasis and sore. Stop your doxycycline. Start the new antibiotic clindamycin which you will take3 times a day for the next 10 days. Call and follow-up your primary care physician soon as possible. Discussed withher a referral to the wound care center. They can do wound care dressings and other procedures to possibly help your legs. I also gave you their number you can call them directly yourself. Disposition Disposition: Home, Self Care What to do if you have Problems For any increased pain, shortness of breath, bleeding, nausea or vomiting, chestpain, or any unexpected problems, contact your Primary Care Provider. Call [facility] ([phone]) or report to the closest Emergency Room. Call 911 if necessary. 11/27/232052 <Electronically signed by Angel Grande MD> Cosigner Signature (if applicable): CC: Dr. Luci Licona, DO ~ Signed [facility] Work Phone: 1(114) 777-312302-23-2024 Note. MICRO - Microbiology PROCEDURE: Blood Culture (bacterial) [*1] SOURCE: Blood BODY SITE: COLLECTED DATE/TIME: 11/21/2023 03:49 EST RECEIVED DATE/TIME: 11/21/2023 13:23 EST START DATE/TIME: 11/21/2023 13:23 EST FREE TEXT SOURCE: FINAL REPORTS Final Report [] Verified Date/Time/Personnel: 11/26/2023 13:59 EST Blood Culture: No Growth at 5 days. PRELIMINARY REPORTS Preliminary Report [] Verified Date/Time/Personnel: 11/21/2023 13:59 EST Culture has been received in lab and is no growth to date. Routine cultures are held for 5 days. Performing Locations *1: This test was performed at: [facility], [address] [place] [address], [facility] , [facility] ([place])11-26-2023 Note. MICRO - Microbiology PROCEDURE: Blood Culture (bacterial) [*1] SOURCE: Blood BODY SITE: COLLECTED DATE/TIME: 11/21/2023 03:49 EST RECEIVED DATE/TIME: 11/21/2023 13:23 EST START DATE/TIME: 11/21/2023 13:23 EST FREE TEXT SOURCE: FINAL REPORTS Final Report [] Verified Date/Time/Personnel: 11/26/2023 13:59 EST Blood Culture: No Growth at 5 days. PRELIMINARY REPORTS Preliminary Report [] Verified Date/Time/Personnel: 11/21/2023 13:59 EST Culture has been received in lab and is no growth to date. Routine cultures are held for 5 days. Performing Locations *1: This test was performed at: [facility], [address] [place] [address], [phone] , [facility] ([place])11-21-2023 Hospital Discharge instructions Patient Education 11/21/2023 03:46:14 [...] spine cause the pain. it is usually causedby an injury, whether known or not, to [...] your side with your knees bent up towardsyour chest and a pillow between your knees. [...] not use a heating pad at bedtime. Sleepingwith a heating pad can lead to skin [...] are taking other medicines. You may use ulvc-gdt-aeqtbme medicine to control pain, unless another pain medicine was prescribed.If you have chronic conditions like diabetes, liver or kidney disease, stomach ulcers, gastrointestinal bleeding, or are taking blood thinner medicines. Be careful if you are given pain medicines, narcotics, or medicine for muscle spasm. They can causedrowsiness, and can affect your coordination, reflexes, and judgment. Do not drive or operate heavyCrocsy. Follow-up care Follow up with your healthcare [...] or as directed by your healthcare provider [id number] [employer]. [address] [place] [address], [place] [address]. All rights reserved. This information is not intended as a substitute for professional medical care. Always follow yourhealthcare professional's instructions. 11/21/2023 03:46:10 Cellulitis Skin Infection [...] swollen, warm, and sore. The reddened areas havea visible border. An open sore may leak [...] or higher after 2 days on antibiotics [id number] [employer]. [address] [place] [address]. All rights reserved. This information is not intended as a substitute for professional medical care. Always follow yourhealthcare professional's instructions. Follow Up Care 11/21/2023 03:31:20 With:[facility] [phone] [place] [address] Address:Unknown When:2-4 days With:Go to emergency room if symptoms worsen Address:Unknown When:2-4 days With:LUCI LICONA DO Address: [address] [place], [place] [id number]- When:2-4 days [facility] 02-18-2024 Note Discharge Instructions Thank you for allowing [facility] to assist you with your healthcare needs. The following is importantdischarge information regarding your hospital visit. Diagnosis from Today's Visit Back pain Cellulitis Cellulitis of leg What to Do Next Instructions from Your Care Team Take doxycycline as prescribed for lower left lower extremity wound/cellulitis. Follow-up with yourprimary care provider. Follow-up with wound care. Keep wound clean and dry. Return the emergency department immediately if you develop worsening symptoms, increased redness, fevers, or any other careconcern. No qualifying data available. Post Acute Orders No qualifying data available. You Need to Schedule the Following Appointments Follow Up with [facility] [phone] [place] [address] When Within 2-4 days Follow Up with Go to emergency room if symptoms worsen When Within 2-4 days Follow Up with LUCI LICONA DO When Within 2-4 days Where: [address] [facility] [place] [address] [place] [address]- Allergies NKA Medications Please ask your primary doctor or pharmacist before taking any other medication not listed, including over the counter drugs, herbal medications, vitamins and or supplements as they may interact withyour home medications. What How Much When Why Instructions Last Dose New doxycycline (doxycycline hyclate 100 mg oral capsule) 1 cap by mouth Every 12 hours Duration: 10 Days Printed Prescription Unchanged acetaminophen-hydrocodone ([place] 325- 5 mg oral tablet) 1 tab(s) [...] spine cause the pain. it is usually causedby an injury, whether known or not, to [...] your side with your knees bent up towardsyour chest and a pillow between your knees. [...] not use a heating pad at bedtime. Sleepingwith a heating pad can lead to skin [...] are taking other medicines. You may use qbrp-[id number]-rfudbub medicine to control pain, unless another pain medicine was prescribed.If you have chronic conditions like diabetes, liver or kidney disease, stomach ulcers, gastrointestinal bleeding, or are taking blood thinner medicines. Be careful if you are given pain medicines, narcotics, or medicine for muscle spasm. They can causedrowsiness, and can affect your coordination, reflexes, and judgment. Do not drive or operate heavyDealHamsterhinery. Follow-up care Follow up with your healthcare [...] or as directed by your healthcare provider [phone] [employer] [address] [place] [address]. All rights reserved. This information is not intended as a substitute for professional medical care. Always follow yourhealthcare professional's instructions. Cellulitis Cellulitis is an infection [...] swollen, warm, and sore. The reddened areas havea visible border. An open sore may leak [...] or higher after 2 days on antibiotics [phone] [employer] [address] [place] [address]. All rights reserved. This information is not intended as a substitute for professional medical care. Always follow yourhealthcare professional's instructions. Additional Information VACCINATE! IT SAVES LIVES! Members of the community who have not yet received the COVID-19 vaccine and would like to receive it can visit one of [facility] vaccine clinics. There are many vaccine clinic locations within the [facility]. For locations and available times, please visit [email or web address] It is important to note that some COVID mobile vaccine clinics are held outdoors and may be canceled in rainy or stormy conditions. To learn more about pediatric vaccinations (ages 5-11), we invite you to visit the [facility] webpage. https://www.[facility].org/pages/8829-Jxgpl-Ksnkybmqezy-Lslgtgcric-Bbcwt-Rnu stions.htmlTo learn more about the COVID-19 vaccine, we invite you to visit the CDC website for a list of frequently asked questions. https://www.cdc.gov/coronavirus/2019-ncov/vaccines/faq.html [facility] Patient Portal Access Instructions: Stay connected with your healthcare team and access your personal medical information anytime with the [facility] Patient Portal. If you would like a full copy of your medical records please contact the [facility] Medical Records Department Wednesday through Wednesday between 8a.m. and 4:30p.m. Please follow the directions below to access the portal: 1.Access the email account you provided upon registration to the [facility].2.Look for an invitation email from [facility].3.Open the email and access the invitation link: Accept Invitation to [facility]4.Fill in the required fabian to create your account. Sign into www.[email or web address] with your username and password that you [...] you will allow to register on the [facility] Patient Portal for access to your information. You can also access the [facility] Patient Portal on the [email or web address] adela. Simply click on "Health Records" under "HealthData" and then click on the [employer] Direct logo. HOW TO SAFELY DISPOSE OF PRESCRIPTION MEDICATIONS Please use one of the following methods to safely dispose of your unused medications. 1.Use a drug disposal kit: the drug disposal pouch allows you to safely discard your old and unuseddrugs. Ask your nurse to give you one when you are discharged.2.Visit a local take-back location: Many local pharmacies and police departments have programs that collect old and unwanted prescriptiondrugs. Call your local pharmacy or go to http://bit.proteonomix/2P9Ty0t to find one close to you.3.Make use of household items: Use cat litter or old coffee grounds to dispose medications if other options arenot available. Mix your drugs with these household products, seal them in an airtight container andthrow it into the garbage. Call [facility]: [phone] to be sure your drugs can be [...] drowsiness, such as benzodiazepines, also known as benzos,including diazepam and alprazolam, muscle relaxants or sleep aids. Never sell or share prescriptionopioids. This is illegal. Store opioids in a [...] explained to me and IREYNALDO II, TERRY Kunderstand my current condition and have read and understand these discharge instructions. I have received a written copy of the plan/instructions. If I have questions, I am aware that I should contact my doctor. Patient/Outgoing Inspector Signature: Date/Time: Relationship to Patient: Witness Name/Signature: Date/Time: [facility] [id number] Hospital Discharge instructions Patient Education 08/28/2023 20:11:18 [...] swollen, warm, and sore. The reddened areas havea visible border. An open sore may leak [...] or higher after 2 days on antibiotics 1571-7573 [employer]. [address] [place] [address], [place] [address]. All rights reserved. This information is not intended as a substitute for professional medical care. Always follow yourhealthcare professional's instructions. Follow Up Care 08/28/2023 20:01:42 With:LUCI LICONA DO Address: [address] [place] [id number]- When:2-4 days [facility] 11-25-2023 Note Discharge Instructions Thank you for allowing [facility] to assist you with your healthcare needs. The following is importantdischarge information regarding your hospital visit. Diagnosis from Today's Visit Cellulitis Leg pain-swelling What to Do Next Instructions from Your Care Team No qualifying data available. Post Acute Orders No qualifying data available. You Need to Schedule the Following Appointments Follow Up with LUCI LICONA DO When Within 2-4 days Where: [address] [place] [address] [id number]- Allergies NKA Medications Please ask your primary doctor or pharmacist before taking any other medication not listed, including over the counter drugs, herbal medications, vitamins and or supplements as they may interact withyour home medications. What How Much When Why Instructions Last Dose New doxycycline (doxycycline hyclate 100 mg oral capsule) 1 cap by mouth Two (2) times a day Duration: 10 Days Printed Prescription Unchanged acetaminophen-hydrocodone (Linefork 325- 5 mg oral tablet) 1 tab(s) [...] or retail pharmacies. Medication Leaflets doxycycline (oral/injection) (LATRICIA manjula evangelista) Acticlate, Adoxa, Alodox, Avidoxy, Doryx, Doryx MPC, Lymepak, Mondoxyne NL, Monodox, Morgidox, Morgidox [id number], Morgidox 9t199hc, Okebo, Oracea, Targadox, Vibramycin, Vibramycin Monohydrate What [...] eye infections, gonorrhea, chlamydia, periodontitis (gum disease), andothers. Doxycycline is also used to treat blemishes, [...] effective. Ask your doctor about using a non-hormonalbirth control (condom, diaphragm with spermicide) to prevent [...] or life-threatening conditions such as anthrax or Sallis spotted fever. The benefit of treating a [...] provided, or with a special dose-measuring spoon ormedicine cup. If you do not have a [...] reaction (fever, sore throat, burning in your eyes,skin pain, red or purple skin rash that spreads and causes blistering and peeling). Seek medical treatment if you have a serious drug reaction that can affect many parts of your body.Symptoms may include: skin rash, fever, swollen glands, flu- like symptoms, muscle aches, severe weakness, unusual bruising, [...] may report side effects to FDA at [phone]. What other drugs will affect doxycycline? Sometimes it is not safe to use certain medications at the same time. Some drugs can affect your blood levels of other drugs you take, which may increase side effects or make the medications less effective. Other drugs may affect doxycycline, including prescription and vllq-ivv-wectjli medicines, vitamins, and herbal products. Tell your [...] to ensure that the information provided by [employer]. ('[employer]') is accurate, up-to-date, and complete, but no guarantee is made to that effect. Drug information contained herein may be time sensitive. [employer] information has been compiled for use by healthcare practitioners and consumers in the [place] and therefore [employer] does not warrant that uses outside of the [place] are appropriate, unless specifically indicated otherwise. [employer]s drug information does not endorse drugs, diagnose patients or recommend therapy. [employer]s drug information isan informational resource designed to assist licensed healthcare practitioners in caring for their p atients and/or to serve consumers viewing this service as a supplement to, and not a substitute for, the expertise, skill, knowledge and judgment of healthcare practitioners. The absence of a warningfor a given drug or drug combination in no way should be construed to indicate that the drug or drug combination is safe, effective or appropriate for any given patient. [employer] does not assume any responsibility for any aspect of healthcare administered with the aid of information [employer] provides. The information contained herein is not intended to cover all possible uses, directions, precautions, warnings, drug interactions, allergic reactions, or adverse effects. If you have questions about the drugs you are taking, check with your doctor, nurse or pharmacist. Copyright 7741-6779 [employer]. Version: .. Revision Date: 06/09/2023. Education Materials Cellulitis Cellulitis [...] swollen, warm, and sore. The reddened areas havea visible border. An open sore may leak [...] or higher after 2 days on antibiotics 0875-3490 [employer]. [address] [place] [address], [place] [address]. All rights reserved. This information is not intended as a substitute for professional medical care. Always follow yourhealthcare professional's instructions. Additional Information VACCINATE! IT SAVES LIVES! Members of the community who have not yet received the COVID-19 vaccine and would like to receive it can visit one of [facility] vaccine clinics. There are many vaccine clinic locations within the [facility]. For locations and available times, please visit www.[email or web address]/. It is important to note that some COVID mobile vaccine clinics are held outdoors and may be canceled in rainy or stormy conditions. To learn more about pediatric vaccinations (ages 5-11), we invite you to visit the [facility] webpage. https://www.[facility].org/pages/6613-Yaciw-Enqkpleargf-Jubhznkgsy-Tplhq-Ead stions.htmlTo learn more about the COVID-19 vaccine, we invite you to visit the CDC website for a list of frequently asked questions. https://www.cdc.gov/coronavirus/2019-ncov/vaccines/faq.html [facility] Patient Portal Access Instructions: Stay connected with your healthcare team and access your personal medical information anytime with the [facility] Patient Portal. If you would like a full copy of your medical records please contact the [facility] Medical Records Department Wednesday through Wednesday between 8a.m. and 4:30p.m. Please follow the directions below to access the portal: 1.Access the email account you provided upon registration to the hospital.2.Look for an invitation email from [facility].3.Open the email and access the invitation link: Accept Invitation to [facility]4.Fill in the required fabian to create your account. Sign into www.[employer] with your username and password that you [...] you will allow to register on the [facility] Patient Portal for access to your information. You can also access the [facility] Patient Portal on the [employer] adela. Simply click on "Health Records" under "[employer]" and then click on the [employer] Direct logo. HOW TO SAFELY DISPOSE OF PRESCRIPTION MEDICATIONS Please use one of the following methods to safely dispose of your unused medications. 1.Use a drug disposal kit: the drug disposal pouch allows you to safely discard your old and unuseddrugs. Ask your nurse to give you one when you are discharged.2.Visit a local take-back location: Many local pharmacies and police departments have programs that collect old and unwanted prescriptiondrugs. Call your local pharmacy or go to http://Friend.ly.proteonomix/7D4Wr7m to find one close to you.3.Make use of household items: Use cat litter or old coffee grounds to dispose medications if other options arenot available. Mix your drugs with these household products, seal them in an airtight container andthrow it into the garbage. Call [facility]: [phone] to be sure your drugs can be [...] drowsiness, such as benzodiazepines, also known as benzos,including diazepam and alprazolam, muscle relaxants or sleep aids. Never sell or share prescriptionopioids. This is illegal. Store opioids in a secure place and out of reach of others (including children, family, friends and visitors). The last page(s) of this document has been signed and retained as a CHART COPY Signatures Patient Education Materials Cellulitis Skin Infection Medication Leaflets doxycycline (oral/injection) My discharge plan and instructions have been reviewed and explained to me and I,SASHA JACOBS II my current condition and have read and understand these discharge instructions. I have received a written copy of the plan/instructions. If I have questions, I am aware that I should contact my doctor. Patient/Outgoing Inspector Signature: Date/Time: Relationship to Patient: Witness Name/Signature: Date/Time: [facility]09-08-2023 Hospital Discharge instructions Patient Education 06/11/2023 04:38:02 Laceration, Extremity: Suture, Staple, or Tape Extremity Laceration: Stitches, Diana, or Tape A laceration is a cut through the skin. If it is deep, it may require stitches or diana to close so it can heal. Minor [...] day or as directed. If stitches or diana were used, clean the wound daily: oAfter removing the bandage, wash the area with soap and water. Use a wet cotton swab to loosen andremove any blood or crust that forms. oAfter cleaning, keep the wound clean and dry. Talk with your healthcare provider before putting any antibiotic ointment on the wound. Reapply the bandage. You may remove the bandage to shower as usual after the first 24 hours, but don't soak the area in water (no swimming) until the stitches or diana are removed. If surgical tape closures were [...] taking this medicine until you have finished itall or the provider tells you to stop. [...] signs of infection listed below. Stitches and diana should be removed within 7 to14 days. [...] directed by your healthcare provider Stitches or diana come apart or fall out or surgical tape falls off before 7 days Wound edges reopen Wound changes colors Numbness occurs around the wound Decreased movement around the injured area 5488-9661 The pin[employer]-pins. [address] [place] [address], [place] [address]. All rights reserved. This information is not intended as a substitute for professional medical care. Always follow yourhealthcare professional's instructions. Follow Up Care 06/11/2023 04:11:52 With:LUCI LICONA DO Address: [address] [place] [id number]- When:2-4 days Comments:Make an appointment in 2 to 4 days with your physician. Return if you are worse in any way. [facility] Stuartsara Jimenez 09-08-2023 Note Discharge Instructions Thank you for allowing [facility] to assist you with your healthcare needs. The following is importantdischarge information regarding your hospital visit. Diagnosis from [...] Schedule the Following Appointments Follow Up with LUCI LICONA DO When Within 2-4 days Why: Make an appointment in 2 to 4 days with your physician. Return if you are worse in any way. Where: [address] [place] [id number]- Allergies NKA Medications Please ask your primary doctor or pharmacist before taking any other medication not listed, including over the counter drugs, herbal medications, vitamins and or supplements as they may interact withur home medications. What How Much When Why Instructions Last Dose Unchanged acetaminophen- hydrocodone (Linefork 325- 5 mg oral tablet) 1 tab(s) [...] retail pharmacies. Education Materials Extremity Laceration: Stitches, Diana, or Tape A laceration is a cut through the skin. If it is deep, it may require stitches or diana to close so it can heal. Minor [...] day or as directed. If stitches or diana were used, clean the wound daily: oAfter removing the bandage, wash the area with soap and water. Use a wet cotton swab to loosen andremove any blood or crust that forms. oAfter cleaning, keep the wound clean and dry. Talk with your healthcare provider before putting any antibiotic ointment on the wound. Reapply the bandage. You may remove the bandage to shower as usual after the first 24 hours, but don't soak the area in water (no swimming) until the stitches or diana are removed. If surgical tape closures were [...] taking this medicine until you have finished itall or the provider tells you to stop. [...] signs of infection listed below. Stitches and diana should be removed within 7 to14 days. [...] directed by your healthcare provider Stitches or diana come apart or fall out or surgical tape falls off before 7 days Wound edges reopen Wound changes colors Numbness occurs around the wound Decreased movement around the injured area 3753-3237 The [employer]pins. [address] [place] [address], [place] [address]. All rights reserved. This information is not intended as a substitute for professional medical care. Always follow yourhealthcare professional's instructions. Additional Information VACCINATE! IT SAVES LIVES! Members of the community who have not yet received the COVID-19 vaccine and would like to receive it can visit one of [facility] vaccine clinics. There are many vaccine clinic locations within the [facility]. For locations and available times, please visit www.[email or web address].[email or web address]/. It is important to note that some COVID mobile vaccine clinics are held outdoors and may be canceled in rainy or stormy conditions. To learn more about pediatric vaccinations (ages 5-11), we invite you to visit the [facility] webpage. https://www.[facility].org/pages/6425-Zytys-Xsnxuqnoqhk-Nlrnymlvjg-Qwkdz-Lll stions.htmlTo learn more about the COVID-19 vaccine, we invite you to visit the CDC website for a list of frequently asked questions. https://www.cdc.gov/coronavirus/2019-ncov/vaccines/faq.html [facility] Patient Portal Access Instructions: Stay connected with your healthcare team and access your personal medical information anytime with the [facility] Patient Portal. If you would like a full copy of your medical records please contact the [facility] Medical Records Department Wednesday through Wednesday between 8a.m. and 4:30p.m. Please follow the directions below to access the portal: 1.Access the email account you provided upon registration to the [facility].2.Look for an invitation email from [facility].3.Open the email and access the invitation link: Accept Invitation to [facility]4.Fill in the required fabian to create your account. Sign into [email or web address] with your username and password that you [...] you will allow to register on the [facility] Patient Portal for access to your information. You can also access the [facility] Patient Portal on the [employer]. Simply click on "Health Records" under "[employer]" and then click on the [facility] logo. HOW TO SAFELY DISPOSE OF PRESCRIPTION MEDICATIONS Please use one of the following methods to safely dispose of your unused medications. 1.Use a drug disposal kit: the drug disposal pouch allows you to safely discard your old and unuseddrugs. Ask your nurse to give you one when you are discharged.2.Visit a local take-back location: Many local pharmacies and police departments have programs that collect old and unwanted prescriptiondrugs. Call your local pharmacy or go to http://Friend.ly.proteonomix/6Q1Cy1x to find one close to you.3.Make use of household items: Use cat litter or old coffee grounds to dispose medications if other options arenot available. Mix your drugs with these household products, seal them in an airtight container andthrow it into the garbage. Call [facility]: [phone] to be sure your drugs can be [...] drowsiness, such as benzodiazepines, also known as benzos,including diazepam and alprazolam, muscle relaxants or sleep aids. Never sell or share prescriptionopioids. This is illegal. Store opioids in a secure place and out of reach of others (including children, family, friends and visitors). The last page(s) of this document has been signed and retained as a CHART COPY Signatures Patient Education Materials Laceration, Extremity: Suture, Staple, or Tape Medication Leaflets My discharge plan and instructions have been reviewed and explained to me and I,SASHA JACOBS IId my current condition and have read and understand these discharge instructions. I have received a written copy of the plan/instructions. If I have questions, I am aware that I should contact my doctor. Patient/Outgoing Inspector Signature: Date/Time: Relationship to Patient: Witness Name/Signature: Date/Time: [facility]05-06-2023 Hospital Discharge instructions Patient Education 02/06/2023 15:00:17 [...] floor and hold for up to 5 seconds.Repeat 10 times on each side. Standin. Wall squats: Stand with your back against the wall. Move your feet about 12 inches away from thewall. Tighten your stomach muscles, and slowly bend [...] knees. At the same time, raise and straightenyour right arm and left leg until they are parallel to the ground. Hold for 2 seconds and come backslowly to a starting position. Repeat with left [...] both legs a few inches off the floorat the same time. Hold for 5 seconds [...] the ground (this is not a full sit- up). Keep your head in line with your body (don t bend your neck forward). Hold for 2 seconds, then slowly lower. 6282-5842 The pinion-pins. [address] [place] [address], [place] [address]. All rights reserved. This information is not intended as a substitute for professional medical care. Always follow yourhealthcare professional's instructions. 02/06/2023 15:00:17 Back Exercises, Lumbar [...] floor and hold for up to 5 seconds.Repeat 10 times on each side. Standin. Wall squats: Stand with your back against the wall. Move your feet about 12 inches away from thewall. Tighten your stomach muscles, and slowly bend [...] knees. At the same time, raise and straightenyour right arm and left leg until they are parallel to the ground. Hold for 2 seconds and come backslowly to a starting position. Repeat with left [...] both legs a few inches off the floorat the same time. Hold for 5 seconds [...] the ground (this is not a full sit- up). Keep your head in line with your body (don t bend your neck forward). Hold for 2 seconds, then slowly lower. 0680-2754 The pin[employer]pins. [address] [place] [address]. All rights reserved. This information is not intended as a substitute for professional medical care. Always follow yourhealthcare professional's instructions. Follow Up Care 02/06/2023 13:39:53 With:LUCI LICONA DO Address: [address] [place] [address]- When:2-4 days [facility] 05-06-2023 Note Discharge Instructions Thank you for allowing [facility] to assist you with your healthcare needs. The following is importantdischarge information regarding your hospital visit. Diagnosis from Today's Visit Back pain Muscle strain Back pain What to Do Next Instructions from Your Care Team Please make sure to follow-up with your primary care physician regarding your acute on chronic backpain. Continue using lidocaine patches and use diclofenac gel which is also glvi-aim-ueayezu. Make sure to perform low back exercises and avoid immobility which can worsen your back pain. No qualifying data available. Post Acute Orders No qualifying data available. You Need to Schedule the Following Appointments Follow Up with LUCI LICONA DO When Within 2-4 days Where: [address] [place] [id number]- Allergies NKA Medications Please ask your primary doctor or pharmacist before taking any other medication not listed, including over the counter drugs, herbal medications, vitamins and or supplements as they may interact withyour home medications. What How Much When Why Instructions Last Dose New diclofenac topical (diclofenac 1% topical gel) 2 gram(s) Topical Four (4) times a day Back pain Muscle strain Printed Prescription Unchanged acetaminophen-hydrocodone (Linefork 325- 5 mg oral tablet) 1 tab(s) [...] attack or stroke. Do not use this medicinejust before or after heart bypass surgery (coronary [...] warty overgrowths of skin (actinic keratoses) on sun- exposed areas of thebody. Diclofenac topical may also be used for purposes not listed in this medication guide. What should I discuss with my healthcare provider before using diclofenac topical? Diclofenac topical can increase your risk of fatal heart attack or stroke, even if you don't have any risk factors. Do not use this medicine just before or after heart bypass surgery (coronary arterybypass graft, or CABG). Diclofenac topical may also [...] attack or severe allergic reaction after taking aspirinor an NSAID. Diclofenac topical is not approved [...] topical unless your doctor tells you to. Takingan NSAID during the last 20 weeks of [...] to diclofenac (such as aspirin, ibuprofen, ketoprofen, ornaproxen). Avoid drinking alcohol. It may increase your risk of stomach bleeding. Avoid exposing treated skin to heat, sunlight, or tanning beds. Heat can increase the amount of diclofenac you absorb through your skin. Avoid getting this medicine in your eyes. If contact does occur, rinse with water. Call your doctorif you have eye irritation that lasts longer than 1 hour. Do not use cosmetics, sunscreen, lotions, insect repellant, or other medicated skin products on thesame area you treat with diclofenac topical. What [...] may report side effects to FDA at 0-988-NQR-6531. What other drugs will affect diclofenac topical? [...] may affect diclofenac. This includes prescription and vgqj-cbn-elrraif medicines, vitamins, and herbal products. Not all [...] to ensure that the information provided by [employer]. ('Bit[employer]') is accurate, up-to-date, and complete, but no guarantee is made to that effect. Drug information contained herein may be time sensitive. [employer] information has been compiled for use by healthcare practitioners and consumers in the [place] and therefore [employer] does not warrant that uses outside of the [place] are appropriate, unless specifically indicated otherwise. [employer]s drug information does not endorse drugs, diagnose patients or recommend therapy. [employer]s drug information isan informational resource designed to assist licensed healthcare practitioners in caring for their p atients and/or to serve consumers viewing this service as a supplement to, and not a substitute for, the expertise, skill, knowledge and judgment of healthcare practitioners. The absence of a warningfor a given drug or drug combination in no way should be construed to indicate that the drug or drug combination is safe, effective or appropriate for any given patient. [facility] does not assume any responsibility for any aspect of healthcare administered with the aid of information [facility] provides. The information contained herein is not intended to cover all possible uses, directions, precautions, warnings, drug interactions, allergic reactions, or adverse effects. If you have questions about the drugs you are taking, check with your doctor, nurse or pharmacist. Copyright 2770-7834 [facility] [employer]. Version: 12.. Revision Date: 02/05/2022. Education Materials [...] floor and hold for up to 5 seconds.Repeat 10 times on each side. Standin. Wall squats: Stand with your back against the wall. Move your feet about 12 inches away from thewall. Tighten your stomach muscles, and slowly bend [...] knees. At the same time, raise and straightenyour right arm and left leg until they are parallel to the ground. Hold for 2 seconds and come backslowly to a starting position. Repeat with left [...] both legs a few inches off the floorat the same time. Hold for 5 seconds [...] the ground (this is not a full sit- up). Keep your head in line with your body (don t bend your neck forward). Hold for 2 seconds, then slowly lower. 1236-4058 [employer]. [address] [place] [address], [place] [address]. All rights reserved. This information is not intended as a substitute for professional medical care. Always follow yourhealthcare professional's instructions. Exercises to Strengthen Your Lower [...] floor and hold for up to 5 seconds.Repeat 10 times on each side. Standin. Wall squats: Stand with your back against the wall. Move your feet about 12 inches away from thewall. Tighten your stomach muscles, and slowly bend [...] knees. At the same time, raise and straightenyour right arm and left leg until they are parallel to the ground. Hold for 2 seconds and come backslowly to a starting position. Repeat with left [...] both legs a few inches off the floorat the same time. Hold for 5 seconds [...] the ground (this is not a full sit- up). Keep your head in line with your body (don t bend your neck forward). Hold for 2 seconds, then slowly lower. 2376-4449 [employer]. [address] [place] [address], [place] [address]. All rights reserved. This information is not intended as a substitute for professional medical care. Always follow yourhealthcare professional's instructions. Additional Information VACCINATE! IT SAVES LIVES! Members of the community who have not yet received the COVID-19 vaccine and would like to receive it can visit one of [facility] vaccine clinics. There are many vaccine clinic locations within the [facility]. For locations and available times, please visit [email or web address]/. It is important to note that some COVID mobile vaccine clinics are held outdoors and may be canceled in rainy or stormy conditions. To learn more about pediatric vaccinations (ages 5-11), we invite you to visit the [facility] webpage. https://www.[email or web address].org/pages/9815-Hgsmp-Wuigbkrxgjo-Srmcfgenwt-Skhnk-Uil stions.htmlTo learn more about the COVID-19 vaccine, we invite you to visit the CDC website for a list of frequently asked questions. https://www.cdc.gov/coronavirus/2019-ncov/vaccines/faq.html [facility] Patient Portal Access Instructions: Stay connected with your healthcare team and access your personal medical information anytime with the [facility] Patient Portal. If you would like a full copy of your medical records please contact the [facility] Medical Records Department Wednesday through Wednesday between 8a.m. and 4:30p.m. Please follow the directions below to access the portal: 1.Access the email account you provided upon registration to the hospital.2.Look for an invitation email from [facility].3.Open the email and access the invitation link: Accept Invitation to [facility]4.Fill in the required fabian to create your account. Sign into www.[employer] with your username and password that you [...] you will allow to register on the [facility] Patient Portal for access to your information. You can also access the [facility] Patient Portal on the [employer] adela. Simply click on "Health Records" under "HealthData" and then click on the [facility] logo. HOW TO SAFELY DISPOSE OF PRESCRIPTION MEDICATIONS Please use one of the following methods to safely dispose of your unused medications. 1.Use a drug disposal kit: the drug disposal pouch allows you to safely discard your old and unuseddrugs. Ask your nurse to give you one when you are discharged.2.Visit a local take-back location: Many local pharmacies and police departments have programs that collect old and unwanted prescriptiondrugs. Call your local pharmacy or go to http://Friend.ly.proteonomix/7Q1Hv7d to find one close to you.3.Make use of household items: Use cat litter or old coffee grounds to dispose medications if other options arenot available. Mix your drugs with these household products, seal them in an airtight container andthrow it into the garbage. Call [facility]: [phone] to be sure your drugs can be [...] drowsiness, such as benzodiazepines, also known as benzos,including diazepam and alprazolam, muscle relaxants or sleep aids. Never sell or share prescriptionopioids. This is illegal. Store opioids in a [...] explained to me and IREYNALDO II, TERRY Kunderstand my current condition and have read and understand these discharge instructions. I have received a written copy of the plan/instructions. If I have questions, I am aware that I should contact my doctor. Patient/Outgoing Inspector Signature: Date/Time: Relationship to Patient: Witness Name/Signature: Date/Time: [facility]05-03-2023 Hospital Discharge instructions Patient Education 02/03/2023 15:36:43 [...] your side with your knees bent up towardyour chest and a pillow between your knees. [...] to 90 minutes, or several times a day.This will reduce swelling and pain. Be sure [...] You may need physical therapy or more testsif your symptoms get worse. If you had X-rays your healthcare provider may be checking for any broken bones, breaks, or fractures. Bruises and sprains can sometimes hurt as much as a fracture. These injuries can take time to heal completely. If your symptoms don t improve or they get worse, talk with your healthcare provider.You may need a repeat X-ray or other [...] Numbness in the groin or genital area 7729-8486 [employer]. [address] [place] [address], [place] [address]. All rights reserved. This information is not intended as a substitute for professional medical care. Always follow yourhealthcare professional's instructions. Follow Up Care 02/03/2023 15:08:00 With:LUCI LICONA DO Address: [address] [place] [address] [id number] When:2-4 days [facility] 05-03-2023 Note Discharge Instructions Thank you for allowing [facility] to assist you with your healthcare needs. The following is importantdischarge information regarding your hospital visit. Diagnosis from Today's Visit Lumbar back sprain Cellulitis Back pain Cellulitis reevaluation Leg pain-swelling What to Do Next Instructions from Your Care Team Flexeril for symptomatic management of your low back pain. This does make you feel drowsy. Avoid driving or using heavy machinery while on this medication. It is very important to perform back extension exercises and early mobilization to treat muscle strains. Please follow-up with your primary care physician closely. We are also treating your infection with antibiotic. Please take as prescribed and finish the wholecourse. If you develop any worsening fever, chills, discharge from the lesion, report back to the emergencydepartment. No qualifying data available. Post Acute Orders No qualifying data available. You Need to Schedule the Following Appointments Follow Up with LUCI LICONA DO When Within 2-4 days Where: [address] [place] [address] [id number]- Allergies NKA Medications Please ask your primary doctor or pharmacist before taking any other medication not listed, including over the counter drugs, herbal medications, vitamins and or supplements as they may interact withyour home medications. What How Much When Why [...] Three (3) times a day Unchanged acetaminophen-hydrocodone ([place] 325- 5 mg oral tablet) 1 tab(s) [...] may report side effects to FDA at 8-174-YJP-7111. What other drugs will affect cephalexin? Tell your doctor about all your other medicines, especially: metformin; or probenecid. This list is not complete. Other drugs may affect cephalexin, including prescription and llco-mad-pvtmvfi medicines, vitamins, and herbal products. Not all [...] to ensure that the information provided by [employer]. ('[employer]') is accurate, up-to-date, and complete, but no guarantee is made to that effect. Drug information contained herein may be time sensitive. [employer] information has been compiled for use by healthcare practitioners and consumers in the [place] and therefore [employer] does not warrant that uses outside of the [place] are appropriate, unless specifically indicated otherwise. [employer]s drug information does not endorse drugs, diagnose patients or recommend therapy. [employer]s drug information isan informational resource designed to assist licensed healthcare practitioners in caring for their p atients and/or to serve consumers viewing this service as a supplement to, and not a substitute for, the expertise, skill, knowledge and judgment of healthcare practitioners. The absence of a warningfor a given drug or drug combination in no way should be construed to indicate that the drug or drug combination is safe, effective or appropriate for any given patient. [employer] does not assume any responsibility for any aspect of healthcare administered with the aid of information [employer] provides. The information contained herein is not intended to cover all possible uses, directions, precautions, warnings, drug interactions, allergic reactions, or adverse effects. If you have questions about the drugs you are taking, check with your doctor, nurse or pharmacist. Copyright 3852-0787 [employer]. Version: 10.03. Revision Date: 10/07/2020. cyclobenzaprine (mirian barker) Amrix, [...] by blocking nerve impulses (or pain sensations) thatare sent to your brain. Cyclobenzaprine is used [...] in the past 14 days. A dangerous druginteraction could occur. MAO inhibitors include isocarboxazid, linezolid, [...] may report side effects to FDA at 9-517-BYU-3032. What other drugs will affect cyclobenzaprine? Using cyclobenzaprine with other drugs that make you drowsy can worsen this effect. Ask your doctorbefore using opioid medication, a sleeping pill, a [...] drugs may affect cyclobenzaprine, including prescription and jalx-fcs-ckdzcbl medicines, vitamins, and herbal products. Not all [...] to ensure that the information provided by [employer]. ('[employer]') is accurate, up-to-date, and complete, but no guarantee is made to that effect. Drug information contained herein may be time sensitive. [employer] 3P information has been compiled for use by healthcare practitioners and consumers in the [place] and therefore [employer] does not warrant that uses outside of the [place] are appropriate, unless specifically indicated otherwise. [employer]s drug information does not endorse drugs, diagnose patients or recommend therapy. [employer]s drug information isan informational resource designed to assist licensed healthcare practitioners in caring for their p atients and/or to serve consumers viewing this service as a supplement to, and not a substitute for, the expertise, skill, knowledge and judgment of healthcare practitioners. The absence of a warningfor a given drug or drug combination in no way should be construed to indicate that the drug or drug combination is safe, effective or appropriate for any given patient. [employer] does not assume any responsibility for any aspect of healthcare administered with the aid of information [employer] provides. The information contained herein is not intended to cover all possible uses, directions, precautions, warnings, drug interactions, allergic reactions, or adverse effects. If you have questions about the drugs you are taking, check with your doctor, nurse or pharmacist. Copyright 2135-5305 [employer]. Version: 5.01. Revision Date: 06/29/2018. Education Materials [...] your side with your knees bent up towardyour chest and a pillow between your knees. [...] to 90 minutes, or several times a day.This will reduce swelling and pain. Be sure [...] You may need physical therapy or more testsif your symptoms get worse. If you had X-rays your healthcare provider may be checking for any broken bones, breaks, or fractures. Bruises and sprains can sometimes hurt as much as a fracture. These injuries can take time to heal completely. If your symptoms don t improve or they get worse, talk with your healthcare provider.You may need a repeat X-ray or other [...] Numbness in the groin or genital area 4854-4522 [employer]. [address] [place] [address], [place] [address]. All rights reserved. This information is not intended as a substitute for professional medical care. Always follow yourhealthcare professional's instructions. Additional Information VACCINATE! IT SAVES LIVES! Members of the community who have not yet received the COVID-19 vaccine and would like to receive it can visit one of [facility] vaccine clinics. There are many vaccine clinic locations within the State. For locations and available times, please visit [email or web address]/. It is important to note that some COVID mobile vaccine clinics are held outdoors and may be canceled in rainy or stormy conditions. To learn more about pediatric vaccinations (ages 5-11), we invite you to visit the [facility] webpage. https://www.[email or web address].org/pages/6622-Lsgba-Khrgicqjjxr-Akvvenrjbr-Nkwog-Rqo stions.htmlTo learn more about the COVID-19 vaccine, we invite you to visit the CDC website for a list of frequently asked questions. https://www.cdc.gov/coronavirus/2019-ncov/vaccines/faq.html [facility] Patient Portal Access Instructions: Stay connected with your healthcare team and access your personal medical information anytime with the [facility] Patient Portal. If you would like a full copy of your medical records please contact the [facility] Medical Records Department Wednesday through Wednesday between 8a.m. and 4:30p.m. Please follow the directions below to access the portal: 1.Access the email account you provided upon registration to the hospital.2.Look for an invitation email from [facility].3.Open the email and access the invitation link: Accept Invitation to [facility]4.Fill in the required fabian to create your account. Sign into www.[employer] with your username and password that you [...] you will allow to register on the [facility] Patient Portal for access to your information. You can also access the [facility] Patient Portal on the [employer] adela. Simply click on "Health Records" under "HealthData" and then click on the [employer] logo. HOW TO SAFELY DISPOSE OF PRESCRIPTION MEDICATIONS Please use one of the following methods to safely dispose of your unused medications. 1.Use a drug disposal kit: the drug disposal pouch allows you to safely discard your old and unuseddrugs. Ask your nurse to give you one when you are discharged.2.Visit a local take-back location: Many local pharmacies and police departments have programs that collect old and unwanted prescriptiondrugs. Call your local pharmacy or go to http://Friend.ly.proteonomix/7U1Ck9q to find one close to you.3.Make use of household items: Use cat litter or old coffee grounds to dispose medications if other options arenot available. Mix your drugs with these household products, seal them in an airtight container andthrow it into the garbage. Call [facility]: [phone] to be sure your drugs can be [...] drowsiness, such as benzodiazepines, also known as benzos,including diazepam and alprazolam, muscle relaxants or sleep aids. Never sell or share prescriptionopioids. This is illegal. Store opioids in a secure place and out of reach of others (including children, family, friends and visitors). The last page(s) of this document has been signed and retained as a CHART COPY Signatures Patient Education Materials Back Sprain/Strain Medication Leaflets cephalexin, cyclobenzaprine My discharge plan and instructions have been reviewed and explained to me and IREYNALDO II, TERRY Kunderstand my current condition and have read and understand these discharge instructions. I have received a written copy of the plan/instructions. If I have questions, I am aware that I should contact my doctor. Patient/Outgoing Inspector Signature: Date/Time: Relationship to Patient: Witness Name/Signature: Date/Time: [facility]02-26-2023 Hospital Discharge instructions Patient Education 11/29/2022 17:28:10 [...] swollen, warm, and sore. The reddened areas havea visible border. An open sore may leak [...] or higher after 2 days on antibiotics 3404-2304 [employer]pins. [address] [place] [address]. All rights reserved. This information is not intended as a substitute for professional medical care. Always follow yourhealthcare professional's instructions. 11/29/2022 17:28:06 COPD Flare COPD [...] healthcare provider s instructions. Some causes of flare- ups are: Smoking or secondhand smoke Colds, the [...] up or your provider tells you to stop.It s important to finish the antibiotics, even [...] your ankles gets worse Dizziness or weakness 7469-5028 The [employer]pins. [address] [place] [address], [place] [address]. All rights reserved. This information is not intended as a substitute for professional medical care. Always follow [facility] professional's instructions. 11/29/2022 17:28:02 PERIPHERAL EDEMA, Bilateral [...] insufficiency or varicose veins, don't sit or portrait painter one place for long periods of time. [...] skin or eyes Rapid, unexplained weight gain 2194-7651 [employer]. [address] [place] [address], [place] [address]. All rights reserved. This information is not intended as a substitute for professional medical care. Always follow yourhealthcare professional's instructions. 11/29/2022 17:27:55 Diabetes, General Information [...] you. Take insulin or other diabetes medicine exactlyas told to. Watch your blood sugar as you are told to. Keep a log of your results. This will help your providerchange your medicines to keep your blood sugar [...] feet, you may not notice an injury orinfection. Check your feet and between your toes [...] as you were told to. You may needto call your provider right away if: oYour [...] Do this even if you don't feel likeeating. Drink water or other liquids that don't [...] tablets. You can buy these at most [employer]. 4 ounces (1/2 cup) of regular (not [...] If it returns to normal (70 mg/dL orabove), eat a snack or meal to keep your blood sugar in a safe range. If it stays low, call your doctor or go to an emergency room. If you have had severe low blood sugar episodes, see that someone in your family is trained to giveyou a shot of glucagon. This will raise your blood sugar if you are unconscious and can't eat any of the above tablets or foods. Follow-up care Follow-up with your healthcare provider, or as advised. For more information about diabetes, visit the [place] [employer] website at www.diabetes.org. Or you can call [phone]. When to seek medical advice Call your healthcare provider right away if you have any of these symptoms of high blood sugar thatdon't go away with the above treatment suggestions: Urinating often Drowsiness Thirst Headache Nausea or vomiting Belly (abdominal) pain Eyesight changes Fast breathing Also call your provider right away if you have any of these signs of low blood sugar and they don'tgo away with the above treatment suggestions: Fatigue Headache Shakes Excess sweating Hunger Feeling anxious or restless Eyesight changes Drowsiness Weakness Call 911 Call 911 if any of these occur: Chest pain or shortness of breath Dizziness or fainting Weakness of an arm or leg or one side of the face Trouble speaking or seeing Confusion or loss of consciousness 9736-8503 [employer]-pins. [address] [place] [address], [place] [address]. All rights reserved. This information is not intended as a substitute for professional medical care. Always follow yourhealthcare professional's instructions. 11/29/2022 17:27:47 Hypertension, To Be Confirmed High Blood Pressure, To Be Confirmed, No Treatment Your blood pressure today was higher than normal. Sometimes anxiety or pain can cause a temporary rise in blood pressure. It later returns to normal. Blood pressure that is high only one time doesn tmean that you have high blood pressure (hypertension). [...] Ask your provider for a recommendation as wellas the proper size cuff to fit your arm. You can buy blood pressure monitors at most pharmacies. The [place] [employer] recommends the following guidelines for [...] the upper part of the arm at heartlevel. Place the middle of the cuff directly [...] face You have problems speaking or seeing 5775-7055 [employer]. [address] [place], [place] [address]. All rights reserved. This information is not intended as a substitute for professional medical care. Always follow yourhealthcare professional's instructions. Follow Up Care 11/29/2022 16:43:55 With:LUCI LICONA Address: [address] [place] [phone]- Business (1) When:2-4 days Comments:Schedule appointment as soon as possible [facility] 02-26-2023 Note Discharge Instructions Thank you for allowing [facility] to assist you with your healthcare needs. The following is importantdischarge information regarding your hospital visit. Diagnosis from Today's Visit Hypertension Diabetes mellitus Peripheral edema COPD - Chronic obstructive pulmonary disease Cellulitis Cellulitis Medication refill Shortness of breath What to Do Next Instructions from Your Care Team No qualifying data available. Post Acute Orders No qualifying data available. You Need to Schedule the Following Appointments Follow Up with LUCI LICONA When Within 2-4 days Why: Schedule appointment as soon as possible Where: [address] [place] [phone]- Business (1) Allergies NKA Medications Please ask your primary doctor or pharmacist before taking any other medication not listed, including over the counter drugs, herbal medications, vitamins and or supplements as they may interact withyour home medications. What How Much When Why [...] Two (2) times a day Unchanged acetaminophen-hydrocodone ([place] 325- 5 mg oral tablet) 1 tab(s) [...] eye infections, gonorrhea, chlamydia, periodontitis (gum disease), andothers. Doxycycline is also used to treat blemishes, [...] effective. Ask your doctor about using a non-hormonalbirth control (condom, diaphragm with spermicide) to prevent . Doxycycline can pass into breast milk and may affect bone and tooth development in a nursing infant. Do not breastfeed while you are taking doxycycline. Doxycycline can cause permanent yellowing or graying of the teeth in children younger than 8 years old. Children should use doxycycline only in cases of severe or life-threatening conditions such as anthrax or Sallis spotted fever. The benefit of treating a [...] provided, or with a special dose-measuring spoon ormedicine cup. If you do not have a [...] reaction (fever, sore throat, burning in your eyes,skin pain, red or purple skin rash that spreads and causes blistering and peeling). Seek medical treatment if you have a serious drug reaction that can affect many parts of your body.Symptoms may include: skin rash, fever, swollen glands, flu- like symptoms, muscle aches, severe weakness, unusual bruising, [...] may report side effects to FDA at 8-604-TKL-4076. What other drugs will affect doxycycline? Sometimes it is not safe to use certain medications at the same time. Some drugs can affect your blood levels of other drugs you take, which may increase side effects or make the medications less effective. Other drugs may affect doxycycline, including prescription and meny-via-uxhdjgj medicines, vitamins, and herbal products. Tell your [...] to ensure that the information provided by [employer]. ('[employer]') is accurate, up-to-date, and complete, but no guarantee is made to that effect. Drug information contained herein may be time sensitive. [employer] information has been compiled for use by healthcare practitioners and consumers in the [place] and therefore [employer] does not warrant that uses outside of the [place] are appropriate, unless specifically indicated otherwise. [employer]s drug information does not endorse drugs, diagnose patients or recommend therapy. [employer]s drug information isan informational resource designed to assist licensed healthcare practitioners in caring for their p atients and/or to serve consumers viewing this service as a supplement to, and not a substitute for, the expertise, skill, knowledge and judgment of healthcare practitioners. The absence of a warningfor a given drug or drug combination in no way should be construed to indicate that the drug or drug combination is safe, effective or appropriate for any given patient. [employer] does not assume any responsibility for any aspect of healthcare administered with the aid of information [employer] provides. The information contained herein is not intended to cover all possible uses, directions, precautions, warnings, drug interactions, allergic reactions, or adverse effects. If you have questions about the drugs you are taking, check with your doctor, nurse or pharmacist. Copyright 8608-6025 [employer]. Version: .. Revision Date: 08/07/2020. metformin (met FOR min) Fortamet, Glucophage, Glucophage XR, Glumetza, MetFORMIN (Eqv-Fortamet), MetFORMIN (Eqv-Glucophage XR), MetFORMIN (Eqv-Glumetza), Riomet, Riomet ER What is the most important information I should know about metformin? You should not use this medicine if you have severe kidney disease, metabolic acidosis, or diabeticketoacidosis (call your doctor for treatment). If you [...] Be sure your caregivers know ahead of timethat you are using this medication. Tell your [...] severe infection, chronic alcoholism, or if you are65 or older. Ask your doctor about your [...] years old. Some forms of metformin are notapproved for use by anyone younger than 18 [...] program that may also include diet, exercise, weightcontrol, blood sugar testing, and special medical care. [...] which can be fatal. Get emergency medical helpif you have even mild symptoms such as: [...] may report side effects to FDA at 1-834-QFT-9570. What other drugs will affect metformin? Many drugs can affect metformin, making this medicine less effective or increasing your risk of lactic acidosis. This includes prescription and oxvf-kle-agnoucr medicines, vitamins, and herbal products. Not all [...] to ensure that the information provided by [employer]. ('[employer]') is accurate, up-to-date, and complete, but no guarantee is made to that effect. Drug information contained herein may be time sensitive. [employer] information has been compiled for use by healthcare practitioners and consumers in the [place] and therefore [employer] does not warrant that uses outside of the [place] are appropriate, unless specifically indicated otherwise. [employer]s drug information does not endorse drugs, diagnose patients or recommend therapy. [employer]s drug information isan informational resource designed to assist licensed healthcare practitioners in caring for their p atients and/or to serve consumers viewing this service as a supplement to, and not a substitute for, the expertise, skill, knowledge and judgment of healthcare practitioners. The absence of a warningfor a given drug or drug combination in no way should be construed to indicate that the drug or drug combination is safe, effective or appropriate for any given patient. [employer] does not assume any responsibility for any aspect of healthcare administered with the aid of information [employer] provides. The information contained herein is not intended to cover all possible uses, directions, precautions, warnings, drug interactions, allergic reactions, or adverse effects. If you have questions about the drugs you are taking, check with your doctor, nurse or pharmacist. Copyright 1800-2182 [employer]. Version: 17.02. Revision Date: 01/11/2020. Education Materials [...] swollen, warm, and sore. The reddened areas havea visible border. An open sore may leak [...] or higher after 2 days on antibiotics [phone] [employer]. [address] [place] [address]. All rights reserved. This information is not intended as a substitute for professional medical care. Always follow yourhealthcare professional's instructions. COPD Flare You have had [...] healthcare provider s instructions. Some causes of flare- ups are: Smoking or secondhand smoke Colds, the [...] up or your provider tells you to stop.It s important to finish the antibiotics, even [...] your ankles gets worse Dizziness or weakness 8801-8437 [employer] [address] [place] [address]. All rights reserved. This information is not intended as a substitute for professional medical care. Always follow yourhealthcare professional's instructions. Leg Swelling in Both Legs [...] insufficiency or varicose veins, don't sit or portrait painter one place for long periods of time. [...] skin or eyes Rapid, unexplained weight gain 5411-3393 [employer]. [address] [place] [address], [place] [address]. All rights reserved. This information is not intended as a substitute for professional medical care. Always follow yourhealthcare professional's instructions. General Information on Diabetes Diabetes [...] you. Take insulin or other diabetes medicine exactlyas told to. Watch your blood sugar as you are told to. Keep a log of your results. This will help your providerchange your medicines to keep your blood sugar [...] feet, you may not notice an injury orinfection. Check your feet and between your toes [...] as you were told to. You may needto call your provider right away if: oYour [...] Do this even if you don't feel likeeating. Drink water or other liquids that don't [...] If it returns to normal (70 mg/dL orabove), eat a snack or meal to keep your blood sugar in a safe range. If it stays low, call your doctor or go to an emergency room. If you have had severe low blood sugar episodes, see that someone in your family is trained to giveyou a shot of glucagon. This will raise your blood sugar if you are unconscious and can't eat any of the above tablets or foods. Follow-up care Follow-up with your healthcare provider, or as advised. For more information about diabetes, visit the [place] [employer] website at www.diabetes.org. Or you can call [phone]. When to seek medical advice Call your healthcare provider right away if you have any of these symptoms of high blood sugar thatdon't go away with the above treatment suggestions: Urinating often Drowsiness Thirst Headache Nausea or vomiting Belly (abdominal) pain Eyesight changes Fast breathing Also call your provider right away if you have any of these signs of low blood sugar and they don'tgo away with the above treatment suggestions: Fatigue Headache Shakes Excess sweating Hunger Feeling anxious or restless Eyesight changes Drowsiness Weakness Call 911 Call 911 if any of these occur: Chest pain or shortness of breath Dizziness or fainting Weakness of an arm or leg or one side of the face Trouble speaking or seeing Confusion or loss of consciousness 7514-3417 [employer]. [address] [place] [address]. All rights reserved. This information is not intended as a substitute for professional medical care. Always follow yourhealthcare professional's instructions. High Blood Pressure, To Be Confirmed, No Treatment Your blood pressure today was higher than normal. Sometimes anxiety or pain can cause a temporary rise in blood pressure. It later returns to normal. Blood pressure that is high only one time doesn tmean that you have high blood pressure (hypertension). [...] Ask your provider for a recommendation as wellas the proper size cuff to fit your arm. You can buy blood pressure monitors at most pharmacies. The [place] [employer] recommends the following guidelines for [...] the upper part of the arm at heartlevel. Place the middle of the cuff directly [...] and stroke. When (more content not included)... [facility]04-10-2022 Hospital Discharge instructions Patient Education 01/11/2022 03:50:12 Hypokalemia Hypokalemia Hypokalemia means a low level of potassium in the blood. This most often occurs in people who take water pills (diuretics). It can also occur because of severe vomiting or diarrhea. You may also haveit if you take laxatives for long periods [...] test within the next week, or as advisedby our staff. When to seek medical advice Call your healthcare provider right away if any of the following occur: Increased weakness, fatigue, or muscle cramps Dizziness Call 911 Call 911 if any of the following occur: Irregular heartbeat, extra beats, or very fast heart rate Loss of consciousness [phone] [employer]. [address] [place] [address]. All rights reserved. This information is not intended as a substitute for professional medical care. Always follow yourhealthcare professional's instructions. 01/11/2022 03:50:12 COPD Flare COPD [...] healthcare provider s instructions. Some causes of flare- ups are: Smoking or secondhand smoke Colds, the [...] up or your provider tells you to stop.It s important to finish the antibiotics, even [...] your ankles gets worse Dizziness or weakness 8966-0357 [employer]. [address] [place] [address], [place] [address]. All rights reserved. This information is not intended as a substitute for professional medical care. Always follow yourhealthcare professional's instructions. Follow Up Care 01/11/2022 02:20:09 With:LUCI LICONA Address: [address] [facility] [place] [address]- Business (1) When:2-4 days [facility] 11-05-2021 Hospital Discharge instructions Patient Education 08/08/2021 17:35:57 [...] large open cavity, put oil of cloves directlyon the tooth to relieve pain. You can buy oil of cloves at drugstores. Some pharmacies carry an gxfn-cej-wjkwuiq "toothache kit." This contains a paste that you can put on the exposed tooth to make it less sensitive. Put a cold pack on your jaw over the sore area to help reduce pain. You may use tzec-wxt-kwdeztb medicine to ease pain, unless another medicine [...] advised. Once an infection occurs in a tooth,it will continue to be a problem until [...] healthcare provider Pus drains from the tooth [phone] [employer]. [address] [place] [address]. All rights reserved. This information is not intended as a substitute for professional medical care. Always follow yourhealthcare professional's instructions. Follow Up Care 08/08/2021 17:13:18 With:Dental Referral List Address:Unknown When:2-4 days Comments:Call the dentists on the referral list to schedule an appointment as soon as possible for definitive care.Otherwise, keep your scheduled appointment for follow-up on 08/20/2021.Soft diet.A very weak very hot and very cold foods and drinks.Use naproxen as for pain and antibiotic (Pen-Vee K) as prescr ibed.Return to the ED if worse. [facility] 10-16-2021 Hospital Discharge instructions Patient Education 07/19/2021 07:16:58 [...] break in it. You must be seen assoon as possible by your dentist or oral [...] years. But it may not be the sameas a normal tooth. It may discolor or need a root canal to preserve it. Not all teeth that have been knocked out can be put back in place. If that s the case, put pressureon the socket with a folded gauze pad [...] to help ease pain. You may use beyj-xem-bzheipx medicine to ease pain, unless another medicine [...] or as directed by your healthcare provider [phone] [employer]. [address] [place] [address], [place] [address]. All rights reserved. This information is not intended as a substitute for professional medical care. Always follow yourhealthcare professional's instructions. 07/19/2021 07:16:13 Dental Pain Dental [...] or cold beverages. It can also be worsewhen you bite on hard foods. Pain may spread from the tooth to your ear or the area of the jaw on the same side. Home care Follow these tips when caring for yourself at home: Don't have hot and cold foods and drinks. Your tooth may be sensitive to changes in temperature. Use toothpaste made for sensitive teeth. [place] gently up and down instead of sideways. Brushing sideways can wear away root surfaces if they are exposed. If your tooth is chipped or cracked, or if there is a large open cavity, put oil of cloves directlyon the tooth to relieve pain. You can buy oil of cloves at [employer] Some pharmacies carry an lfpm-phe-dpicuey "toothache kit." This contains a paste that you can put on the exposed tooth to make it less sensitive. Put a cold pack on your jaw over the sore area to help reduce pain. You may use vywq-oeq-edxcfml medicine to ease pain, unless your doctor prescribed another medicine.If you have chronic liver or kidney disease, [...] healthcare provider Pus drains from the tooth [phone] [employer]. [address] [place] [address], [place] [address]. All rights reserved. This information is not intended as a substitute for professional medical care. Always follow yourhealthcare professional's instructions. Follow Up Care 07/19/2021 06:58:55 With:Dental Referral List Address:Unknown When:2-4 days With:LUCI LICONA Address: [address] [place] [address] [place] [address]- Business (1) When:2-4 days Comments:Return to ED if symptoms worsen [facility] Discharge summary Author Dex Velasco [facility] December 04, 2022 4:25am Note Date/Time December 04, 2022 4:00 am [facility] Medical Records Department [address] [place] [id number] Emergency Department Summary 12/04/22 MR#: [id number] Acct: [id number] Name: SASHA JACOBS II Rep #:[id number] 1980 42 From: Dex Velasco DO PCP: Dr. Luci Liocna DO Status:DEP ER Location: ED HPI History of Present Illness Chief Complaint: Cellulitis Narrative Narrative: Patient is a 42-year-old male with past medical history of morbid obesity psoriasis asthma/COPD requiring chronic supplemental oxygen and lymphedema. He states that he has noticed his legs have been more swollen as of recently and hefeels they are slightly discolored. He also reports he feels like there is someswelling into his lower abdomen with redness there as well concerning for cellulitis which she states he has had in the past with similar symptoms. He denies any fevers or chills and states he has not required any increase to his chronic oxygen. However he has concern for developing infection with this comesin for evaluation. [facility] Medical History (Updated 12/04/22 @ 04:[address] Dex Velasco DO) Acute respiratory failure with hypoxia Alcohol use Ambulates with cane Asthma Back pain Bronchitis Cellulitis Chewing tobacco use Chronic acquired lymphedema COPD (chronic obstructive pulmonary disease) CPAP (continuous positive airway pressure) dependence Degeneration of intervertebral disc of lumbosacral region Depression Diabetes Fatty liver History of edema HTN (hypertension) Influenza A Loose, teeth Morbid obesity On home oxygen therapy ANTONIO (obstructive sleep apnea) Psoriasis Radiculopathy of lumbosacral region Restless legs Seizures Tobacco dependence syndrome Home Medications cyclobenzaprine 10 mg tablet 10 mg PO TID muscle relaxer 08/07/16 [History Last Taken 05/17/22] gabapentin 600 mg tablet 600 mg PO TIDCM neuropathy 08/07/16 [History Last Taken 05/17/22] oxycodone 5 mg tablet 15 mg PO TID PRN Pain 08/07/16 [History Last Taken 05/17/22] duloxetine 20 mg capsule,delayed release (Cymbalta) 20 mg PO DAILY depression 12/29/17 [History Last Taken 05/17/22] furosemide 40 mg tablet 80 mg PO DAILY water pill 12/29/17 [History Last Taken 05/17/22] metoprolol succinate 25 mg tablet,extended release 24 hr 25 mg PO BID heart 12/29/17 [History Last Taken 05/17/22] dicyclomine 10 mg capsule 20 mg PO TIDAC Pain 08/27/19 [History Last Taken 05/17/22] albuterol sulfate 2.5 mg/3 mL (0.083 %) solution for nebulization 2.5 mg (3 mL) inhalation Q4H PRN Sob &/Or Wheezing #180 mL 01/09/20 [Rx Last Taken 05/17/22] albuterol sulfate 90 mcg/actuation breath activated powder inhaler (ProAir RespiClick) 2 inh inhalation Q4H PRN shortness of breath or wheezing #1 ea 01/09/20 [Rx Last Taken 05/17/22] metformin 500 mg tablet,extended release 24 hr 500 mg PO BID 08/07/20 [History Last Taken 05/17/22] montelukast 10 mg tablet 10 mg PO QPM #30 tabs 05/09/21 [Rx Last Taken 05/17/22] tiotropium bromide 2.5 mcg/actuation mist for inhalation (Spiriva Respimat) 2 puff inhalation QHS #4 grams 11/12/21 [Rx Last Taken 05/17/22] Symbicort 160 mcg-4.5 mcg/actuation HFA aerosol inhaler (budesonide-formoterol) 2 puff inhalation BID #10.2 grams 11/13/21 [Rx Last Taken 05/17/22] cetirizine 10 mg capsule (Zyrtec) 10 mg PO HS 05/13/22 [History Last Taken 05/17/22] loperamide 2 mg capsule (Imodium A-D) 4 mg PO Q4H PRN PRN Diarrhea 05/13/22 [History Last Taken 05/17/22] clindamycin HCl 300 mg capsule 300 mg PO 4X/DAY 10 days #40 caps 12/04/22 [Rx Last Taken Unknown] clindamycin HCl 300 mg capsule (Cleocin HCl) 300 mg PO 4X/DAY 10 days #40 CAPSULES 12/04/22 [Rx Last Taken Unknown] Allergy/AdvReac Type Severity Reaction Status Date / Time No Known Allergies Allergy Verified 12/04/22 00:25 Family History Other No pertinent family history Surgical History History of back surgery No pertinent past surgical history Social History Smoking Status: Never smoker alcohol intake: former ROS ROS ED Constitutional Constitutional ED: Denies chills or fever(s) ENT ENT ED: Denies sore throat Cardiovascular Cardiovascular: Reports other Details: Positive edema ; Denies chest pain Respiratory/Chest Respiratory/Chest: Denies cough or dyspnea Gastrointestinal Gastrointestinal: Denies abdominal pain, diarrhea, nausea or vomiting Genitourinary Genitourinary ED: Denies dysuria Musculoskeletal Musculoskeletal: Reports myalgias Integumentary Reports rash Neurologic Neurologic: Denies headache(s) Hematologic/Lymphatic Hematologic/Lymphatic: Denies easy bleeding or easy bruising EXAM Physical Exam Const Vital Signs: 12/04/22 00:23 12/04/22 03:12 12/04/22 04:06 Temperature 98.3 F Temperature Source Temporal Pulse Rate 71 70 64 Respiratory Rate 18 20 H 18 Blood Pressure 169/96 H 127/68 H 115/82 H Blood Pressure Mean 120 87 Pulse Ox 98 99 100 Oxygen Delivery Method Room Air Room Air Positive well nourished, well developed and obese General Appearance ED: well developed Nutritional Appearance: obese Eyes PERRL and EOMs intact bilaterally Neck supple and no JVD Resp normal respiratory effort and clear to auscultation bilaterally Resp Narrative: Breath sounds are diminished throughout but overall clear to auscultation without nasal flaring retractions tachypnea or accessory muscle use Cardio regular rate and regular rhythm Rate: other Other Details: Radial pulses are plus 2 out of 4 bilaterally are equal and symmetric GI normal to inspection, nondistended, normoactive bowel sounds, non-tender and non-distended GI Narrative: Abdomen is obese and there is faint erythema along the lower pannus with slight asymmetric warmth but no induration or fluctuance to suggest abscess no lymphangitic streaking no crepitance palpated to suggest necrotizing fasciitis. There is no pain on palpation either and there is no pulsatile mass or fluid wave. Auscultation: normoactive bowel sounds Palpation: soft Extremity Extremity Narrative: Patient has diffuse edema to the bilateral lower extremities with +2-3 pitting edema that is equal and symmetric. Patient has chronic stasis changes in psoriasis/eczema changes as well. There is faint erythema along the anterior aspects of bilateral lower legs also with faint warmth present concerning for developing cellulitis. There is no induration to suggest abscess no active drainage or lymphangitic streaking Neuro oriented x3 and CN's II-XII intact bilaterally Sensorium / Orientation: alert Psych mental status grossly normal Skin Skin Narrative: Soft tissue changes to the abdomen and legs as documented above consistent with chronic psoriasis/eczema and developing cellulitis MDM MDM MDM Narrative Medical decision making narrative: Patient presented to the ER hypertensive but does have a past medical history ofthis and otherwise with stable vitals. He is on oxygen but states he only needsto wear 1 to 2 L at rest and is not requiring increased to his baseline supplementation. He has no signs of congestive heart failure on exam such as JVD or fluid wave. His skin has secondary changes from psoriasis and eczema with apparent developing cellulitis in order to ensure there is no signs of systemic infection because of his diabetic status basic blood work was obtained. Labs revealed no leukocytosis or left shift no signs of acute kidney injury or severeelectrolyte derangement and no changes to suggest DKA or HHS. Also has patient had reported increased swelling he had concern for possible congestive heart failure exacerbation chest x-ray revealed no acute fluid overload changes and his proBNP is normal. There is possibility this could be secondary to a DVT buthe does not have a history of this and he denies any recent travel or surgery orhormone use. Therefore at this time I cannot order a venous duplex to rule thisout but I will order him one as an outpatient for the morning. As he is low risk for DVT/PE on exam I do not feel there is need for a D-dimer or administration of anticoagulation at this time. Patient was reassessed after his work-up was completed and he is resting comfortably and remains in no acute distress. Therefore we will start the patient on antibiotics secondary to developing cellulitis but he is otherwise safe for discharge History & Record Review Discussion w/independent historian: Patient Lab Data Attestation: I reviewed the patient's lab results. Labs: Laboratory Results - last 24 hr 12/04/22 12/04/22 12/04/22 03:10 03:10 03:10 WBC 8.9 RBC 4.08 L Hgb 12.2 L Hct 37.8 L MCV 92.6 MCH 29.9 MCHC 32.3 RDW Std Deviation 47.1 H RDW Coeff of Lizett 13.9 Plt Count 207 MPV 9.0 Immature Gran % (Auto) 0.600 Neut % (Auto) 66.2 Lymph % (Auto) 24.0 [place] % (Auto) 5.8 Eos % (Auto) 2.8 Baso % (Auto) 0.6 Absolute Neuts (auto) 5.9 Absolute Lymphs (auto) 2.13 Nucleated RBC % 0 Sodium 143 Potassium 3.5 Chloride 105 Carbon Dioxide 32.0 Anion Gap 6 BUN 7 Creatinine 0.77 Est GFR (MDRD) Af Amer 142 Est GFR (MDRD) Non-Af 117 BUN/Creatinine Ratio 9.0 L Glucose 102 Calcium 8.5 B-Natriuretic Peptide 14.2 Radiography Diagnostic Testing: Clinical Impression(s) from Imaging Studies Chest X-Ray 12/04/22 03:01 IMPRESSION: No radiographic evidence of acute cardiopulmonary disease. Electronically Signed: Matt Townsend MD at 4:13 EST Reading Location ID and State: [facility] / [place] Tel , Service support , Chest x-ray as interpreted by the emergency medicine physician reveals no acute infiltrate pneumothorax or pleural effusion Discharge Plan Triage Chief Complaint: Cellulitis ED Provider: Dex Velasco Dx/Rx/DC Orders Clinical Impression: Cellulitis, Peripheral edema, HTN (hypertension), Morbid obesity Instructions: Cellulitis Dc, ED Lymphedema Prescriptions: New clindamycin HCl 300 mg capsule 300 mg PO 4X/DAY 10 Days Qty: 40 0RF clindamycin HCl [Cleocin HCl] 300 mg capsule 300 mg PO 4X/DAY 10 Days Qty: 40 0RF No Action ProAir RespiClick 90 mcg/actuation aerosol powdr breath activated 2 inh INHALATION Q4H PRN (Reason: shortness of breath or wheezing) Qty: 1 6RF Rx Instructions: administer with spacer albuterol sulfate 2.5 mg /3 mL (0.083 %) solution for nebulization 2.5 mg INHALATION Q4H PRN (Reason: Sob &/Or Wheezing) Qty: 180 3RF budesonide-formoterol [Symbicort] 160-4.5 mcg/actuation HFA aerosol inhaler 2 puff INHALATION BID Qty: 10.2 3RF cyclobenzaprine 10 MG tablet 10 mg PO TID gabapentin 600 MG tablet 600 mg PO TIDCM oxycodone 5 MG tablet 15 mg PO TID PRN (Reason: Pain) furosemide 40 MG tablet 80 mg PO DAILY metoprolol succinate 25 MG tablet extended release 24 hr 25 mg PO BID duloxetine [Cymbalta] 20 MG capsule 20 mg PO DAILY dicyclomine 10 MG capsule 20 mg PO TIDAC metformin 500 MG tablet 500 mg PO BID loperamide [Imodium A-D] 2 MG capsule 4 mg PO Q4H PRN PRN (Reason: Diarrhea) Zyrtec 10 mg capsule 10 mg PO HS montelukast 10 mg tablet 10 mg PO QPM Qty: 30 3RF Spiriva Respimat 2.5 mcg/actuation mist 2 puff INHALATION QHS Qty: 4 3RF Other Ambulatory Orders: Venous Duplex US - Maximo Extrem (Stat) Facility: [facility] - Location: [facility] Ordered By: Dr. Dex Velasco Primary Care Provider: Luci Licona Referrals: Luci Licona DO [Primary Care Provider] - Activity Restrictions/Additional Instructions: Please take the clindamycin as directed to help resolve your cellulitis and return to the hospital to have your outpatient venous duplex study obtained secondary to your leg swelling. Your work-up today did not show any signs of congestive heart failure or derangement to your diabetes. If you have any further concerns please return to the ER for repeat evaluation Disposition Disposition: Home, Self Care Discharge Date/Time: 12/04/22 04:24 What to do if you have Problems For any increased pain, shortness of breath, bleeding, nausea or vomiting, chestpain, or any unexpected problems, contact your Primary Care Provider. Call [facility] ([phone]) or report to the closest Emergency Room. Call 911 if necessary. 12/04/22 0425 <Electronically signed by Dex Velasco DO> Cosigner Signature (if applicable): CC: Dr. Luci Licona DO ~ Signed [facility] Work Phone: Evaluation + Plan note No data available for this section [facility] Evaluation note* Diagnosis Onset Date Resolution Status Asthma-COPD overlap syndrome chronic Chronic respiratory failure with hypoxia chronic Morbid obesity chronic ANTONIO (obstructive sleep apnea) chronic [facility] Work Phone: Evaluation noteNo assessment information available [facility] Work Phone: Hospital Discharge instructions Additional Instructions Please take the clindamycin as directed to help resolve your cellulitis and return to the hospital to have your outpatient venous duplex study obtained secondary to your leg swelling. Your work-up today did not show any signs of congestive heart failure or derangement to your diabetes. If you have any further concerns please [facility] Discharge instructions Additional Instructions This may or may not be cellulitis. It could also just be irritation of the skin from the psoriasis and sore. Stop your doxycycline. Start the new antibiotic clindamycin which you will take 3 times a day for the next 10 days. Call and follow-up your primary care physician soon as possible. Discussed with her a referral to the wound care center. They can do wound care dressings and other procedures to possibly help your legs. I also gave you their number you can call them directly yourself.[facility] Work Phone: Note* Zara Miller RN: PERFORM Event Display: [facility] Patient Summary Authored Date: Discharge Instructions Thank you for allowing [facility] to assist you with your healthcare needs. The following is importantdischarge information regarding your hospital visit. Diagnosis from Today's Visit Hypertension Diabetes mellitus Peripheral edema COPD - Chronic obstructive pulmonary disease Cellulitis Cellulitis Medication refill Shortness of breath What to Do Next Instructions from Your Care Team No qualifying data available. Post Acute Orders No qualifying data available. You Need to Schedule the Following Appointments Follow Up with LUCI LICONA When Within 2-4 days Why: Schedule appointment as soon as possible Where: [address] [place] [address] [place] [address]- Business (1) Allergies NKA Medications Please ask your primary doctor or pharmacist before taking any other medication not listed, including over the counter drugs, herbal medications, vitamins and or supplements as they may interact withyour home medications. What How Much When Why [...] Two (2) times a day Unchanged acetaminophen-hydrocodone ([place] 325- 5 mg oral tablet) 1 tab(s) [...] eye infections, gonorrhea, chlamydia, periodontitis (gum disease), andothers. Doxycycline is also used to treat blemishes, [...] effective. Ask your doctor about using a non-hormonalbirth control (condom, diaphragm with spermicide) to prevent . Doxycycline can pass into breast milk and may affect bone and tooth development in a nursing infant. Do not breastfeed while you are taking doxycycline. Doxycycline can cause permanent yellowing or graying of the teeth in children younger than 8 years old. Children should use doxycycline only in cases of severe or life-threatening conditions such as anthrax or Sallis spotted fever. The benefit of treating a [...] provided, or with a special dose-measuring spoon ormedicine cup. If you do not have a [...] reaction (fever, sore throat, burning in your eyes,skin pain, red or purple skin rash that spreads and causes blistering and peeling). Seek medical treatment if you have a serious drug reaction that can affect many parts of your body.Symptoms may include: skin rash, fever, swollen glands, flu- like symptoms, muscle aches, severe weakness, unusual bruising, [...] may report side effects to FDA at 1-277-MAB-2358. What other drugs will affect doxycycline? Sometimes it is not safe to use certain medications at the same time. Some drugs can affect your blood levels of other drugs you take, which may increase side effects or make the medications less effective. Other drugs may affect doxycycline, including prescription and bxgy-vmt-jsgjhfh medicines, vitamins, and herbal products. Tell your [...] to ensure that the information provided by [employer]. ('[employer]') is accurate, up-to-date, and complete, but no guarantee is made to that effect. Drug information contained herein may be time sensitive. [employer] information has been compiled for use by healthcare practitioners and consumers in the [place] and therefore [employer] does not warrant that uses outside of the [place] are appropriate, unless specifically indicated otherwise. [employer] drug information does not endorse drugs, diagnose patients or recommend therapy. [employer] drug information isan informational resource designed to assist licensed healthcare practitioners in caring for their p atients and/or to serve consumers viewing this service as a supplement to, and not a substitute for, the expertise, skill, knowledge and judgment of healthcare practitioners. The absence of a warningfor a given drug or drug combination in no way should be construed to indicate that the drug or drug combination is safe, effective or appropriate for any given patient. [employer] does not assume any responsibility for any aspect of healthcare administered with the aid of information [employer] provides. The information contained herein is not intended to cover all possible uses, directions, precautions, warnings, drug interactions, allergic reactions, or adverse effects. If you have questions about the drugs you are taking, check with your doctor, nurse or pharmacist. Copyright 6904-6507 [employer]. Version: 21.04. Revision Date: 08/07/2020. metformin (met FOR min) Fortamet, Glucophage, Glucophage XR, Glumetza, MetFORMIN (Eqv-Fortamet), MetFORMIN (Eqv-Glucophage XR), MetFORMIN (Eqv-Glumetza), Riomet, Riomet ER What is the most important information I should know about metformin? You should not use this medicine if you have severe kidney disease, metabolic acidosis, or diabeticketoacidosis (call your doctor for treatment). If you [...] Be sure your caregivers know ahead of timethat you are using this medication. Tell your [...] severe infection, chronic alcoholism, or if you are65 or older. Ask your doctor about your [...] years old. Some forms of metformin are notapproved for use by anyone younger than 18 [...] program that may also include diet, exercise, weightcontrol, blood sugar testing, and special medical care. [...] which can be fatal. Get emergency medical helpif you have even mild symptoms such as: [...] may report side effects to FDA at 1-651-XFN-2911. What other drugs will affect metformin? Many drugs can affect metformin, making this medicine less effective or increasing your risk of lactic acidosis. This includes prescription and lfuk-xmn-wiymknm medicines, vitamins, and herbal products. Not all [...] to ensure that the information provided by [employer]. ('[employer]') is accurate, up-to-date, and complete, but no guarantee is made to that effect. Drug information contained herein may be time sensitive. [employer] information has been compiled for use by healthcare practitioners and consumers in the [place] and therefore [employer] does not warrant that uses outside of the [place] are appropriate, unless specifically indicated otherwise. [employer]s drug information does not endorse drugs, diagnose patients or recommend therapy. [employer]s drug information isan informational resource designed to assist licensed healthcare practitioners in caring for their p atients and/or to serve consumers viewing this service as a supplement to, and not a substitute for, the expertise, skill, knowledge and judgment of healthcare practitioners. The absence of a warningfor a given drug or drug combination in no way should be construed to indicate that the drug or drug combination is safe, effective or appropriate for any given patient. [employer] does not assume any responsibility for any aspect of healthcare administered with the aid of information [employer] provides. The information contained herein is not intended to cover all possible uses, directions, precautions, warnings, drug interactions, allergic reactions, or adverse effects. If you have questions about the drugs you are taking, check with your doctor, nurse or pharmacist. Copyright 9043-3839 [employer]. Version: 17.02. Revision Date: 01/11/2020. Education Materials [...] swollen, warm, and sore. The reddened areas havea visible border. An open sore may leak [...] or higher after 2 days on antibiotics 2776-5731 [employer]. [address] [place] [address], [place] [address]. All rights reserved. This information is not intended as a substitute for professional medical care. Always follow yourhealthcare professional's instructions. COPD Flare You have had [...] healthcare provider s instructions. Some causes of flare- ups are: Smoking or secondhand smoke Colds, the [...] up or your provider tells you to stop.It s important to finish the antibiotics, even [...] your ankles gets worse Dizziness or weakness 8142-3252 [employer]. [address] [place] [address]. All rights reserved. This information is not intended as a substitute for professional medical care. Always follow yourhealthcare professional's instructions. Leg Swelling in Both Legs [...] insufficiency or varicose veins, don't sit or portrait painter one place for long periods of time. [...] skin or eyes Rapid, unexplained weight gain 2608-7032 [employer]. [address] [place] [address], [place] [address]. All rights reserved. This information is not intended as a substitute for professional medical care. Always follow yourhealthcare professional's instructions. General Information on Diabetes Diabetes [...] you. Take insulin or other diabetes medicine exactlyas told to. Watch your blood sugar as you are told to. Keep a log of your results. This will help your providerchange your medicines to keep your blood sugar [...] feet, you may not notice an injury orinfection. Check your feet and between your toes [...] as you were told to. You may needto call your provider right away if: oYour [...] Do this even if you don't feel likeeating. Drink water or other liquids that don't [...] If it returns to normal (70 mg/dL orabove), eat a snack or meal to keep your blood sugar in a safe range. If it stays low, call your doctor or go to an emergency room. If you have had severe low blood sugar episodes, see that someone in your family is trained to giveyou a shot of glucagon. This will raise your blood sugar if you are unconscious and can't eat any of the above tablets or foods. Follow-up care Follow-up with your healthcare provider, or as advised. For more information about diabetes, visit the [place] [employer] website at www.diabetes.org. Or you can call [phone]. When to seek medical advice Call your healthcare provider right away if you have any of these symptoms of high blood sugar thatdon't go away with the above treatment suggestions: Urinating often Drowsiness Thirst Headache Nausea or vomiting Belly (abdominal) pain Eyesight changes Fast breathing Also call your provider right away if you have any of these signs of low blood sugar and they don'tgo away with the above treatment suggestions: Fatigue Headache Shakes Excess sweating Hunger Feeling anxious or restless Eyesight changes Drowsiness Weakness Call 911 Call 911 if any of these occur: Chest pain or shortness of breath Dizziness or fainting Weakness of an arm or leg or one side of the face Trouble speaking or seeing Confusion or loss of consciousness [phone] [employer]. [address] [place] [address]. All rights reserved. This information is not intended as a substitute for professional medical care. Always follow yourhealthcare professional's instructions. High Blood Pressure, To Be Confirmed, No Treatment Your blood pressure today was higher than normal. Sometimes anxiety or pain can cause a temporary rise in blood pressure. It later returns to normal. Blood pressure that is high only one time doesn tmean that you have high blood pressure (hypertension). [...] Ask your provider for a recommendation as wellas the proper size cuff to fit your arm. You can buy blood pressure monitors at most pharmacies. The [place] [employer] recommends the following guidelines for [...] the upper part of the arm at heartlevel. Place the middle of the cuff directly [...] face You have problems speaking or seeing 6043-0914 [employer]. [address] [place] [address]. All rights reserved. This information is not intended as a substitute for professional medical care. Always follow yourhealthcare professional's instructions. Additional Information VACCINATE! IT SAVES LIVES! Members of the community who have not yet received the COVID-19 vaccine and would like to receive it can visit one of [facility] vaccine clinics. There are many vaccine clinic locations within the [facility]. For locations and available times, please visit www.[email or web address].[place].gov/. It is important to note that some COVID mobile vaccine clinics are held outdoors and may be canceled in rainy or stormy conditions. To learn more about pediatric vaccinations (ages 5-11), we invite you to visit the [facility] webpage. https://www.[facility].org/pages/4339-Iaxij-Nsmehpehbqu-Vfxggscfzh-Wvcay-Jaa stions.htmlTo learn more about the COVID-19 vaccine, we invite you to visit the CDC website for a list of frequently asked questions. https://www.cdc.gov/coronavirus/2019-ncov/vaccines/faq.html [facility] Patient Portal Access Instructions: Stay connected with your healthcare team and access your personal medical information anytime with the [facility] Patient Portal. If you would like a full copy of your medical records please contact the [facility] Medical Records Department Wednesday through Wednesday between 8a.m. and 4:30p.m. Please follow the directions below to access the portal: 1.Access the email account you provided upon registration to the [facility].2.Look for an invitation email from [facility].3.Open the email and access the invitation link: Accept Invitation to [facility]4.Fill in the required fabian to create your account. Sign into www.[email or web address] with your username and password that you [...] you will allow to register on the [facility] Patient Portal for access to your information. You can also access the [facility] Patient Portal on the [email or web address] adela. Simply click on "Health Records" under "HealthDaMagento" and then click on the [facility] logo. HOW TO SAFELY DISPOSE OF PRESCRIPTION MEDICATIONS Please use one of the following methods to safely dispose of your unused medications. 1.Use a drug disposal kit: the drug disposal pouch allows you to safely discard your old and unuseddrugs. Ask your nurse to give you one when you are discharged.2.Visit a local take-back location: Many local pharmacies and police departments have programs that collect old and unwanted prescriptiondrugs. Call your local pharmacy or go to http://bit.ly/4W1Jc9y to find one close to you.3.Make use of household items: Use cat litter or old coffee grounds to dispose medications if other options arenot available. Mix your drugs with these household products, seal them in an airtight container andthrow it into the garbage. Call [facility]: [phone] to be sure your drugs can be [...] drowsiness, such as benzodiazepines, also known as benzos,including diazepam and alprazolam, muscle relaxants or sleep aids. Never sell or share prescriptionopioids. This is illegal. Store opioids in a [...] explained to me and I,SASHA JACOBS II my current condition and have read and understand these discharge instructions. I have received a written copy of the plan/instructions. If I have questions, I am aware that I should contact my doctor. Patient/Outgoing Inspector Signature: Date/Time: Relationship to Patient: Witness Name/Signature: Date/Time: [facility] Progress note No data available for this section [facility] Summary note* DANNIELLE Beck: PERFORM Event Display: Patient Summary Documents Authored Date: [id number] [facility] Chief Complaint and Reason for Visit Chief Complaint 3 M FU Obstructive sleep apnea (adult) (pediatric) Reason for Visit Asthma-COPD overlap syndrome Chronic respiratory failure with hypoxia Morbid obesity ANTONIO (obstructive sleep apnea) Chief Complaint CELLULITS Chief Complaint CELLULITS Localized edema Chief Complaint CELLULITS Localized edema BACK PAIN Chief Complaint CELLULITIS Chief Complaint CELLULITIS Back pain Advance Directives No Advanced Directives Records Found Advance Directive Response Recorded Date/ Time Advance Directives No September 4:30pm Living Will No September 16 021 4:30pm Power of Junior Marketing Associate No September 16, 2021 4:30pm Advance Directive Response Recorded Date/ Time Advance Directives No September 4:30pm Living Will No May 13 12:44pm Power of Junior Marketing Associate No May 13 12:44pm Advance Directive Response Recorded Date/ Time Advance Directives No September 3:30pm Living Will No May 13 2 11:44am Power of Junior Marketing Associate No May 13 022 11:44am Advance Directive Response Recorded Date/ Time Advance Directives No September 3:30pm Living Will No December 04, 2022 3:12am Power of Junior Marketing Associate No December 04 3 3:12am Advance Directive Response Recorded Date/ Time Advance Directives No September 4:30pm Living Will No December 04, 2022 4:12am Power of Junior Marketing Associate No December 04 3 4:12am Advance Directive Response Recorded Date/ Time Advance Directives No September 4:30pm Living Will No February 06, 2023 7: 38pm Power of Junior Marketing Associate No February 06, 2023 7:38pm Advance Directive Response Recorded Date/ Time Advance Directives No September 3:30pm Living Will No February 24th, 2 024 7:13pm Power of Junior Marketing Associate No November 27, 2023 7:13pm Advance Directive Response Recorded Date/ Time Advance Directives No September 4:30pm Living Will No January 15, 2024 5:16pm Power of Junior Marketing Associate No January 14 5:16pm Family History No Family History Records Found Relationship Condition Age at Onset Recorded Date/T bill mother Diabetes mellitus Unknown father Diabetes mellitus Unknown Cardiac disease Unknown Summary Purpose Additional Source Comments Care Team (unrecognized sect ion and content) Team Status: Active Member Role Status Dates Dr. Luci Licona DO Family Provider Active Dr. Luci Licona DO Primary Care Provider Active Team Status: Inactive Member Role Status Dates Dr. Luci Licona DO Primary Care Provider Active Dr. Morgan Heller MD Attending Provider, Referring Provider Active Team Status: Inactive Member Role Status Dates Dr. Luci Licona DO Primary Care Provider Active Dr. Dex Velasco DO Emergency Provider Active Team Status: Active Member Role Status Dates Dr. Luci Licona DO Primary Care Provider Active Dr. Juan Carlos Almeida MD Attending Provider Active Team Status: Inactive Member Role Status Dates Dr. Luci Licona DO Primary Care Provider Active Dr. Dex Velasco DO Attending Provider, Emergency Pr ovider Active Team Status: Inactive Member Role Status Dates Dr. Luci Licona DO Primary Care Provider Active Dr. Dex Velasco DO Attending Provider Active Team Status: Active Member Role Status Dates Dr. Luci Licona DO Primary Care Provider Active Dr. Juan Carlos Almeida MD Attending Provider Active Dr. Dex Velasco DO Referring Provider Active Team Status: Inactive Member Role Status Dates Dr. Luci Licona DO Primary Care Provider Active Dr. Chuck Jackson MD Emergency Provider Active Team Status: Inactive Member Role Status Dates Dr. Luci Licona DO Primary Care Provider Active Dr. Angel Grande MD Emergency Provider Active Team Status: Inactive Member Role Status Dates Dr. Luci Licona DO Primary Care Provider Active Dr. Thu Malhotra MD Emergency Provider Active Team Status: Inactive Member Role Status Dates Dr. Luci Licona DO Primary Care Provider Active Dr. Angel Grande MD Attending Provider, Emergency Pro vider Active Goals (unrecognized section and content) Goals may be documented in a n alternate section Care Team (unrecognized sect ion and content) Care Team Personnel Name: LUCI LICONA Member Role: Primary Care Physician Address: Address: [address] [place] [address] [place] [address]- Care Team Related Persons Name: MAYRA JACOBS Name: REYNALDO, MAYRA Name: JACOBS, MAYRA Name: JACOBS, MAYRA Name: JACOBS, MAYRA Name: JACOBS, MAYRA Name: JACOBS, MAYRA Name: JACOBS, MAYRA Name: JACOBS, MAYRA Name: JACOBS, MAYRA Name: JACOBS, MAYRA Name: JACOBS, MAYRA Name: JACOBS, MAYRA Name: JACOBS, MAYRA Name: JACOBS, MAYRA Name: MAYRA JACOBS (unrecognized sect ion and content) No Status Records FoundNo Status Records FoundNo Status Records Found INFORMATION SOURCE (unrecogn ized section and content) DATE CREATED AUTHOR 05/25/2024 [facility] DATE CREATED AUTHOR AUTHOR'S ORGANIZ ATION 06/07/2024 [facility] ([place]) DATE CREATED AUTHOR AUTHOR'S ORGANIZ ATION 12/27/2024 [facility] [place] FOR RECORDS PERTAINING TO PATIENTS WHO ARE [...] BE BASED ON THE PRIMARY CLINICAL RECORDS. [facility] [employer] [facility]. provides no warranty or guarantee of the accuracy or completeness of information in this document.
--- NOTE | 2025-08-17 16:51 | CT_ITS ---
EXAM: CT Pelvis With Intravenous Contrast CLINICAL INDICATION: COMPLEX MASS INFERIOR TO THE RIGHT TESTICLE TECHNIQUE: Axial computed tomography images of the pelvis with intravenous contrast. This CT exam was performed using one or more of the following dose reduction techniques: automated exposure control, adjustment of the mA and/or kV according to patient size, and/or use of iterative reconstruction technique. COMPARISON: No relevant prior studies available. FINDINGS: BOWEL: Unremarkable. No obstruction. No mucosal thickening. APPENDIX: No findings to suggest acute appendicitis. INTRAPERITONEAL SPACE: Unremarkable. No free air. No significant fluid collection. BLADDER: Unremarkable. No mass. REPRODUCTIVE: Isodense soft tissue density of the right testicle. This is better demonstrated in the scrotal ultrasound. Further evaluation with MRI is recommended with and without contrast. Diffuse scrotal wall thickening and bilateral hydrocele. BONES/JOINTS: No acute fracture. No dislocation. SOFT TISSUES: Unremarkable. VASCULATURE: Unremarkable. No lower abdominal aortic aneurysm. LYMPH NODES: Unremarkable. No enlarged lymph nodes. CT/Pelvis WITH IV Contrast IMPRESSION: 1. Isodense soft tissue density of the right testicle. This is better demonst rated in the scrotal ultrasound. Further evaluation with MRI is recommended with and without contrast. 2. Diffuse scrotal wall thickening and bilateral hydrocele. Reading Location: [id number]
[2025-08-17 17:00] VITALS: BP 182/90; PULSE 89; RESP 14; O2SAT 94
[2025-08-17] MEDS: 0.9% Normal Saline (1000mL) 1,000 ML 1000 ML IV (17:03)
[2025-08-17 20:25] VITALS: O2SAT 82
[2025-08-17 20:30] VITALS: O2SAT 95
[2025-08-17 21:00] VITALS: BP 142/77; PULSE 84; RESP 18; O2SAT 97
[2025-08-17 21:42] VITALS: BP 141/95; PULSE 89; RESP 18; TEMP 36.6; O2SAT 94
== END 2025-08-17 21:43 | disposition home or self-care (01) ==
PROVIDERS: Emergency Provider Surgery; PCP Family Medicine; Visit Provider Surgery
DX: N50.89 Other specified disorders of the male genital organs (principal); E11.65 Type 2 diabetes mellitus with hyperglycemia; Z79.4 Long term (current) use of insulin; N43.3 Hydrocele, unspecified; F17.210 Nicotine dependence, cigarettes, uncomplicated; F17.220 Nicotine dependence, chewing tobacco, uncomplicated
CPT/HCPCS: 72193; 76870; 80048; 81001; 85025; 87086; 93976; 96361; 96374; 99284; Q9967; A4216